=== PATIENT | male | born 1935 | race Caucasian/White ===

== ENCOUNTER 2019-02-21 13:59 | Emergency (ER) | payer MEDICARE, OTHER ==
[~2019-02-21] VITALS: Ht 172.7 cm; Wt 81.7 kg
--- OUTSIDE RECORDS SUMMARY | ~2019-02-21 | XMS | Encounter Summary ---
Demographics + + + | Address | [address] | | | [place] [address] | + + + | Home Phone | | + + + | Preferred Language | Unknown | + + + | Marital Status | Single | + + + | Gnosticism Affiliation | CAT | + + + | Race | White | + + + | Ethnic Group | Not or | + + + Author + + + | Author | [facility] | + + + | Organization | [facility] | + + + | Address | Unknown | + + + | Phone | Unavailable | + + + Support + + +---------+ + | Name | Relationship | Address | Phone | + + +---------+ + | Elizabeth Damico | ECON | Unknown | | + + +---------+ + Care Team Providers + +------+ + | Care Leadite Heater Name | Role | Phone | + +------+ + PCP | Unavailable | + +------+ + Encounter Details +--------+ + + + + | Date | Type | Department | Care Team | Description | +--------+ + + + + | 05/23/ | Results | [facility] | Wayne Higginbotham, | | | 2010 | Only | Department | MD [facility] | | | | | | CLINIC DERMATOLOGY | | | | | | [address] | | | | | | [place] | | | | | | [address] | | | | | | | [...] | | OLOGY(WET | FIRST TISSUE LEVEL | | DERMATOPATH | | | MNT) | [place] [id number] | | OLOGY | | | | CLINICAL | | | | | | DESCRIPTION:Shave, | | | | | | scalp; continued pigment | | | | | | change in pigmented | | | | | | patch; previously bx.on | | | | | | solar lentigo. | | | | | | GROSS | | | | | | DESCRIPTION:Scalp. Th | | | | | | e specimen is received | | | | | | in formalin, labeled | | | | | | scalp with thepatient's | | | | | | name, and consists of a | | | | | | garcia and brown shave | | | | | | biopsy, measuring 1.1x | | | | | | 1.0 cm, which is inked, | | | | [...] | | | | | | keratinocyte | | | | | | atypia. In other | | | | | [...] | | | | | SITU, SCALP. | | | | | | There are also several | | | | | | foci of SQUAMOUS CELL | | | | | | CARCINOMA IN SITU, | | | | | | likely anincidental | | | | | | finding ("collision | | | | | | lesion"). The | | | | | | melanoma in situ extends | | | | | | tothe peripheral | | | | | | margins and for these | | | | | | reasons, additional | | | | | | treatment of it toensure | | | | | | complete removal would | | | | | | be prudent. | | | | | | KPW:mm8 | | | | | | This case also reviewed | | | | | | with Dr. Mata Palmer | | | | | | Jr. Tabitha My | | | | | | electronic signature | | | | | | indicates that I have | | | | | | personally reviewed | | | | | | alldiagnostic slides, | | | | | | the gross and/or | | | | | | microscopic portion of | | | | | | thisreport and | | | | | | formulated the final | | | | | | diagnosis. | | | | | | Rendering | | | | | | Diagnostician: Jason | | | | | | Tabitha | | | | | | IsidoroPathologistKatherinei | | | | | | natalie Signed | | | | | | 05/30/2011 9:56AM | | | | + + + + + + + + | Specimen | + + | | + + + + + + + | Performing | Address | City/State/Zipcode | Phone Number | | Organization | | | | + + + + + | [facility] | [address], [address] | [place] [address] | | | DERMATOPATHOLOGY | [address] | | | + + + + + documented in this encounter Visit Diagnoses Not on filedocumented in this encounter
--- OUTSIDE RECORDS SUMMARY | ~2019-02-21 | XMS | Encounter Summary ---
Demographics + + + | Address | [address] | | | [place] [address] | + + + | Home Phone [...] Team Providers + +------+ + | Care Glass Embosser Name | Role | Phone | + +------+ + PCP | Unavailable | + +------+ + Encounter Details +--------+ + + + + | Date | Type | Department | Care Team | Description | +--------+ + + + + | 01/26/ | Office | | Note, Outpatient | Progress Note | | 2004 | Visit-Trans | | Clinic | | | | cribed | | | | +--------+ + + [...] + + documented as of this encounter Progress Notes Interface, Cyber Security Manager In - 2005 7:20 PM PDTClinic Date: 01/27/2004 Clinic: Subjective: This is a 68-year-old male with a history of epidural abscess. Blood cultures were positive for Enterococcus fecalis. He underwent L3-4 laminectomy in November 2003 here at [facility]. He also underwent 6 weeks of intravenous antibiotic therapy. He was treated with TLSO upon discharge, and he is still wearing his brace. The patient is ambulatory with a walker which he has been using for about a week. Prior to this, he was in a wheelchair secondary to pain. He also reports some generalized weakness but nothing focal. He is currently on oxycodone, a total of 100 mg per day, which offers him good relief. His pain is often present with activity, and it is relieved by lying or sitting down. He rates his pain as about 5/10 in severity when present. He is doing physical therapy at home. Physical Examination: He stands with some difficulty secondary to pain. He is wearing his TLSO. He is awake, alert, and follows commands. He has 5/5 strength in both lower extremities with the exception of his right dorsiflexors which grade a 4+/5. Examination of his lower extremities is complicated by pain, and upon removal of his brace, his wound is well healed. Assessment and Plan: We had a discussion with the patient regarding his treatment up to this point. He seems to be recovering well from his surgery. His pain syndrome is slowly getting better, and he is becoming more ambulatory as his pain resolves. We advised the patient to begin to taper his narcotics as his pain resolves, and we advised the patient that it is okay to begin swimming pool physical therapy and he may remove his thoracolumbosacral orthosis during this therapy. At the conclusion of our visit, we sent the patient for his x-rays which we now have the opportunity to review. His x-rays show autofusion at the L3-4 level and at the L5-S1 level. He has a grade I to II spondylolisthesis of L4 on L5. The patient was advised to return back in the clinic in 3 months or sooner if clinically indicated. Please note that this patient was seen with Dr. Vences. Sergei Martinez M.D. Maria C Vences M.D. SHELBY / WALDO [id number] / [id number] / [id number] / Tdocumented in this encounter Plan of Treatment Not on filedocumented as of this encounter Visit Diagnoses Not on filedocumented in this encounter"
--- OUTSIDE RECORDS SUMMARY | ~2019-02-21 | XMS | Encounter Summary ---
Demographics + + + | Address | [address] | | | [place] [address] | + + + | Home Phone | | + + + | Preferred Language | Unknown | + + + | Marital Status | Single | + + + | Mosque Affiliation | CAT | + + + [...] Team Providers + +------+ + | Care Leather Etcher Name | Role | Phone | + [...] as of this encounter Progress Notes Interface, Oil Well Logger In - 2005 7:20 PM PDTClinic Date: 01/27/2004 Clinic: Subjective: This is a 68-year-old male with a history of epidural abscess. Blood cultures were positive for Enterococcus fecalis. He underwent L3-4 laminectomy in November 2003 here at [facility]. He also underwent 6 weeks of intravenous [...] Maria C Vences M.D. [place] / WALDO [id number] / [id number] / [id number] / Tdocumented in this encounter Plan of Treatment Not on filedocumented as of this encounter Visit Diagnoses Not on filedocumented in this encounter"
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
--- OUTSIDE RECORDS SUMMARY | ~2019-02-21 | XMS | Encounter Summary ---
Demographics + + + | Address | [address] | | | [place] [address] | + + + | Home Phone | | + + + | Preferred Language | Unknown | + + + | Marital Status | Single | + + + | Anabaptism Affiliation | CAT | + + + | Race | White | + + + | Ethnic Group | Not or | + + + Author + + + | Author | [facility] | + + + | Organization | [facility] | + + + | Address | Unknown | + + + | Phone | Unavailable | + + + Support + + +---------+ + | Name | Relationship | Address | Phone | + + +---------+ + | Elizabeth Damico | ECON | Unknown | | + + +---------+ + Care Team Providers + +------+ + | Care Intermediate Designer Name | Role | Phone | + +------+ + PCP | Unavailable | + +------+ + Encounter Details +--------+ + + + + | Date | Type | Department | Care Team | Description | +--------+ + + + + | 12/08/ | Hospital | Dermatopathology | | | | 2012 | Encounter | [address] | | | | | | Mail Code: CH16D | | | | | | [facility] | | | | | | and [facility], 5th | | | | | | [place], [place] | | | | | | [address] | | | | | | [phone] | | | +--------+ + + + [...] + +--------+ + + + | DERMATOPATHOLOGY(WET Routin | 12/08/2012 | | Results for this | | [facility]) | e | | | procedure are in the | | | | | | results section. | + +--------+ + + + documented in this encounter Results DERMATOPATHOLOGY(WET [facility]) (12/08/2012) + + + + + + | Component | Value | Ref Range | Performed | Pathologist | | | | | At | Signature | + + + + + + | DERMATOPATH | SOURCE OF SPECIMEN:A | | [facility] | | | OLOGY(WET | Scalp. CLINICAL | | DERMATOPATH | | | MNT) | DESCRIPTION:Irreg | | OLOGY | | | | pigmented patch, pt has | | | | | | Hx of 2 other MMIS | | | | | | elsewhere on scalp; | | | | | | solarlentigo, pigmented | | | | | | AK, R/O | | | | | | melanoma. GROSS | | | | | | DESCRIPTION:Received in | | | | | | formalin is a specimen | | | | | | labeled Iraida Damico | | | | | | [place]:A: Specimen is | | | | | | labeled "scalp" and | | | | | | consists of an irregular | | | | | | shave oftan-white skin, | | | | | | [id number]. The surgical | | | | | | margin is inked black; | | | | | | the tissueis serially | | | | | | sectioned, and entirely | | | | | | submitted in cassette | | | | | | A1. MICROSCOPIC | | | | | | DESCRIPTION:There is | | | | | | slight hyperplasia of | | | | | | the rete ridges with | | | | | | hyperpigmentation | | | | | | alongthe basal layer and | | | | | | solar | | | | | | elastosis. | | | | | | DIAGNOSIS:SOLAR | | | | | | LENTIGO. | | | | | | NOTE: There is also a | | | | | | small focus of | | | | | | co-existent PIGMENTED | | | | | | SOLARKERATOSIS. There | | | | | | is no evidence of a | | | | | | melanocytic | | | | | | proliferation in | | | | | | thesesections. | | | | | | KPW:12/18/12 My | | | | | | [...] Tabitha | | | | | | M.AngelPathologistElectroni | | | | | | natalie Signed | | | | | | 12/19/2012 7:23PM | | | | + + + + + + + + | Specimen | + + | | + + + + + + + | Performing | Address | City/State/Zipcode | Phone Number | | Organization | | | | + + + + + | [facility] | [address], [address] | [place] [address] | | | DERMATOPATHOLOGY | [address] | | | + + + + + documented in this encounter Visit Diagnoses Not on filedocumented in this encounter
--- OUTSIDE RECORDS SUMMARY | ~2019-02-21 | XMS | Encounter Summary ---
Demographics + + + | Address | [address] | | | [place] [address] | + + + | Home Phone | | + + + | Preferred Language | Unknown | + + + | Marital Status | Single | + + + | Episcopalian Affiliation | CAT | + + + | Race | White | + + + | Ethnic Group | Not or | + + + Author + + + | Author | [facility] | + + + | Organization | [facility] | + + + | Address | Unknown | + + + | Phone | Unavailable | + + + Support + + +---------+ + | Name | Relationship | Address | Phone | + + +---------+ + | Elizabeth Damico | ECON | Unknown | | + + +---------+ + Care Team Providers + +------+ + | Care Track Laying Machine Operator Name | Role | Phone | + +------+ + PCP | Unavailable | + +------+ + Encounter Details +--------+ + + + + | Date | Type | Department | Care Team | Description | +--------+ + + + + | 11/26/ | DELETED | Preoperative | Consult, | ANESTHESIA/SEDATION | | 2003 | TRANSCRIPTI | Medicine Clinic at | Anesthesia [address] | | | | ON | [facility] 4th Floor [address] | [facility] | | | | | [address] | Road [place], [place] | | | | | Code: [address] | [address] | | | | | for Health and | | | | | | Healing,4th Floor | | | | | | [place], [place] | | | | | | [address] | | | | | | [phone] | | | +--------+ + + + [...] | + +--------+ + + + | ANESTHESIA/SEDATION | | 11/26/2003 | | Results for this | | | | 10:18 AM | | procedure are in the | | | | PST | | results section. | + +--------+ + + + documented in this encounter Visit Diagnoses Not on filedocumented in this encounter"
--- OUTSIDE RECORDS SUMMARY | ~2019-02-21 | XMS | Encounter Summary ---
Demographics + + + | Address | [address] | | | [place] [address] | + + + | Home Phone | | + + + | Preferred Language | Unknown | + + + | Marital Status | Single | + + + | Islam Affiliation | CAT | + + + | Race | White | + + + | Ethnic Group | Not or | + + + Author + + + | Author | [facility] | + + + | Organization | [facility] | + + + | Address | Unknown | + + + | Phone | Unavailable | + + + Support + + +---------+ + | Name | Relationship | Address | Phone | + + +---------+ + | Elizabeth Damico | ECON | Unknown | | + + +---------+ + Care Team Providers + +------+ + | Care Scroll Shear Operator Name | Role | Phone | + +------+ + PCP | Unavailable | + +------+ + Encounter Details +--------+ + + + + | Date | Type | Department | Care Team | Description | +--------+ + + + + | 01/09/ | Hospital | Dermatopathology | | | | 2011 | Encounter | [address] | | | | | | Mail Code: CH16D | | | | | | [facility] | | | | | | and [facility], 5th | | | | | | floor [place], [place] | | | | | | [address] | | | | | | [phone] | | | +--------+ + + + [...] | + +--------+ + + + | DERMATOPATHOLOGY([facility] Routin | 01/10/2012 | | Results for this | | [facility]) | e | | | procedure are in the | | | | | | results section. | + +--------+ + + + documented in this encounter Results DERMATOPATHOLOGY(WET [facility]) (01/10/2012) + + + + + + | Component | Value | Ref Range | Performed | Pathologist | | | | | At | Signature | + + + + + + | DERMATOPATH | SOURCE OF SPECIMEN:A | | [facility] | | | OLOGY(WET | chest, excision | | DERMATOPATH | | | MNT) | CLINICAL DESCRIPTION:Exc | | OLOGY | | | | 0.29mm melanoma; suture | | | | | | medial tip. Check | | | | | | margins please. | | | | | | GROSS | | | | | | DESCRIPTION:Received in | | | | | | formalin is a specimen | | | | | | labeled Iraida Damico | | | | | | [place]:A: Specimen is | | | | | | labeled "Chest" and | | | | | | consists of an ellipse | | | | | | of garcia-white | | | | | | [id number]. The | | | | | | specimen is oriented by | | | | | | a suture at one apex, | | | | | | which isdesignated as | | | | | | medial by the | | | | | | surgeon. With the | | | | | | suture in the | | | | | | 12:00position, the | | | | | | specimen is inked blue | | | | | | from 12-3-6:00 and green | | | | | | from6-9-12:00. The | | | | | | tissue is serially | | | | | | sectioned from 12:00 to | | | | | | 6:00 andsubmitted | | | | | | respectively in | | | | | | cassettes A1-A4. | | | | | | MICROSCOPIC | | | | | | DESCRIPTION:There is | | | | | | fibrosis extending | | | | | | throughout the dermis. | | | | | | In one of the | | | | | | blocks,there is a slight | | | | | | increase in single | | | | | | melanocytes distributed | | | | | | irregularlyalong and | | | | | | focally above the basal | | | | | | layer. In another, away | | | | | | from the scar,there is a | | | | | | well circumscribed | | | | | | compound melanocytic | | | | | | proliferation composedof | | | | | | nests and cords in the | | | | | | dermis and a few single | | | | | | melanocytes and | | | | | | nestsalong the basal | | | | | | layer. Most of the | | | | | | melanocytic nuclei are | | | | | | moderately largeand | | | | | | round to oval and most | | | | | | of the cells contain | | | | | | amphophilic cytoplasm | | | | | | withmelanin. | | | | | | DIAGNOSIS:MELANOMA IN | | | | | | SITU, CHEST, AND | | | | | | SCAR. NOTE: Only | | | | | | a small remnant of the | | | | | | original melanoma is | | | | | | present in | | | | | | thisre-excisional | | | | | | specimen, most of it | | | | | | confined to the | | | | | | epidermis (in situ). | | | | | | Theresidual melanoma | | | | | | appears to be completely | | | | | | excised. There are also | | | | | | findingsof an | | | | | | incidental COMPOUND | | | | | | NEVUS present in block | | | | | | 2, which is | | | | | | completelyexcised. | | | | | | | | | | | | KPW:emr4/07/18 | | | | | | My [...] | | | | | natalie Signed 01/16/2012 | | | | | | 12:21PM | | | | + + + + + + + + | Specimen | + + | | + + + + + + + | Performing | Address | City/State/Zipcode | Phone Number | | Organization | | | | + + + + + | [facility] | [address], [address] | [place] [address] | | | DERMATOPATHOLOGY | [address] | | | + + + + + documented in this encounter Visit Diagnoses Not on filedocumented in this encounter
--- OUTSIDE RECORDS SUMMARY | ~2019-02-21 | XMS | Encounter Summary ---
Demographics + + + | Address | [address] | | | [place] [address] | + + + | Home Phone | | + + + | Preferred Language | Unknown | + + + | Marital Status | Single | + + + | Adventism Affiliation | CAT | + + + | Race | White | + + + | Ethnic Group | Not or | + + + Author + + + | Author | [facility] | + + + | Organization | [facility] | + + + | Address | Unknown | + + + | Phone | Unavailable | + + + Support + + +---------+ + | Name | Relationship | Address | Phone | + + +---------+ + | Elizabeth Damico | ECON | Unknown | | + + +---------+ + Care Team Providers + +------+ + | Care Skimmer Name | Role | Phone | + [...] [id number] | | | | | | [facility] | | | | | | and [facility], 5th | | | | | | [place], [place] | | | | | | [address] | | | | | | [phone] | | | +--------+ + + + [...] | | Results for this | | [facility]) | e | | | procedure are in the | | | | | | results section. | + +--------+ + + + documented in this encounter Results DERMATOPATHOLOGY(WET [facility]) (12/08/2012) + + + + + + [...] Damico | | | | | | [place]:A: Specimen is | | | | | | labeled "scalp" and | | | | | | consists of an irregular | | | | | | shave oftan-white skin, | | | | | | [id number]. The surgical | | | | | [...] + + | [facility] | [address], [address] | [place] [address] | | | DERMATOPATHOLOGY | [address] | | | + + + + + documented in this encounter Visit Diagnoses Not on filedocumented in this encounter
--- OUTSIDE RECORDS SUMMARY | ~2019-02-21 | XMS | Encounter Summary ---
Demographics + + + | Address | [address] | | | [place] [address] | + + + | Home Phone | | + + + | Preferred Language | Unknown | + + + | Marital Status | Single | + + + | Zoroastrianism Affiliation | CAT | + + + | Race | White | + + + | Ethnic Group | Not or | + + + Author + + + | Author | [facility] | + + + | Organization | [facility] | + + + | Address | Unknown | + + + | Phone | Unavailable | + + + Support + + +---------+ + | Name | Relationship | Address | Phone | + + +---------+ + | Elizabeth Damico | ECON | Unknown | | + + +---------+ + Care Team Providers + +------+ + | Care Ropewalk Rope Maker Name | Role | Phone | + +------+ + PCP | Unavailable | + +------+ + Encounter Details +--------+ + + + + | Date | Type | Department | Care Team | Description | +--------+ + + + + | / | Results | Registration 3181 | Shawn, Dasia | | | 2007 | Only | Silvia Fonseca | [phone] | | | | | [facility] Mailcode: | | | | | | [id number] [place], [place] | | | | | | [address] | | | | | | [phone] | | | +--------+ + + + [...] OLOGY(WET | FIRST TISSUE LEVEL | | | | | MNT) | [place] [id number] CLINICAL | | | | | | [...] | | | | | | Diagnostician: Clifto | | | | | | n Spencer Lu Jr., | | | | | | Pato | | | | | | natalie [...] + + + | [facility] | [address], [address] | [place] [address] | | | DERMATOPATHOLOGY | [address] | | | + + + + + documented in this encounter Visit Diagnoses Not on filedocumented in this encounter"
--- OUTSIDE RECORDS SUMMARY | ~2019-02-21 | XMS | Clinical Summary ---
Demographics + + + | Address | [address] | | | [place] [address] | + + + | Home Phone [...] Author + + + | Author | [facility] | + + + | Organization | [facility] | + + + | Address | Unknown | + + + | Phone | Unavailable | + + + Support + + +---------+ + | Name | Relationship | Address | Phone | + + +---------+ + | Elizabeth Damico | ECON | Unknown | | + + +---------+ + Care Team Providers + +------+ + | Care Floating Derrick Operator Name | Role | Phone | + +------+ + PP | Unavailable | + +------+ + Source Comments [facility] is fully live on both [facility] Ambulatory and [facility] InPatient.[facility] Allergies No Known Allergies Medications Not on file Active Problems Not on file Social History + +-------+ +--------+------+ | Tobacco [...] recent travel history available. | + + Plan of Treatment + + + + + | Health Maintenance | Due Date | Last Done | Comments | + + + + + | Pneumococcal (Adult) | | | | | (1 of 2 - PCV13) | 0 | | | + + + + + | Influenza (Flu) | | | | | vaccination (Season | 9 | | | | Ended) | | | | + + + + + Results Not on filefrom Last 3 Months Insurance + +--------+ +--------+ + +--------+ | Payer | Benefi | Subscriber | Effect | Phone | Address | Type | | | t Plan | ID | rey | | | | | | / | | Dates | | | | | | Group | | | | | | + +--------+ +--------+ + +--------+ | MEDICARE | MEDICA | xxxxxxxxxx | 04/06/20 | [phone] | [address] | Medica | | | RE A & | | 00-Pre | 1 | [phone] | re | | | B | | sent | | [place] | | | | | | | | [phone] | | + +--------+ +--------+ + +--------+ | COMMERCIAL GROUP | COMMER | xxxxxxx | Effect | | | Indemn | | | CIAL | | rey | | | ity | | | GROUP | | for | | | | | | | | all | | | | | | | | dates | | | | + +--------+ +--------+ + +--------+ + +--------+ +--------+ + + | Guarantor Name | Accoun | Relation to | Date | Phone | Billing Address | | | t Type | Patient | of | | | | | | | | | | + +--------+ +--------+ + + | Iraida Damico | Person | Self | [birth year] | [address] | | | al/Fam | | 1935 | [phone] | [place] [address] | | | isa | | | 8 (Home) | | + +--------+ +--------+ + +"
--- OUTSIDE RECORDS SUMMARY | ~2019-02-21 | XMS | Encounter Summary ---
Demographics + + + | Address | [address] | | | [place] [address] | + + + | Home Phone | | + + + | Preferred Language | Unknown | + + + | Marital Status | Single | + + + | Pentecostalism Affiliation | CAT | + + + [...] Team Providers + +------+ + | Care Inspector Technician Name | Role | Phone | + +------+ + PCP | Unavailable | + +------+ + Encounter Details +--------+ + + + + | Date | Type | Department | Care Team | Description | +--------+ + + + + | 11/25/ | Results | | Other, Faculty | | | 2003 | Only | | [phone] | | +--------+ + + + + [...] | + +--------+ + + + | GENTAMICIN, PEAK | Routin | 11/29/2003 | | Results for this | | | e | 10:50 AM | | procedure are in the | | | | PST | | results section. | + +--------+ + + + | BASIC METABOLIC SET | Routin | 11/29/2003 | | Results for this | | (NA, K, CL, TCO2, | e | 10:50 AM | | procedure are in the | | BUN, CR, GLU, CA) | | PST | | results section. | + +--------+ + + + | CULTURE, TISSUE | Routin | 11/25/2003 | | Results for this | | | e | 3:31 PM | | procedure are in the | | | | PST | | results section. | + +--------+ + + + | CULTURE, WOUND BACTI | Routin | 11/25/2003 | | Results for this | | & GS | e | 3:31 PM | | procedure are in the | | | | PST | | results section. | + +--------+ + + + documented in this encounter Results GENTAMICIN, PEAK (11/29/2003 10:50 AM PST) + +---------+ + + + | Component | Value | Ref Range | Performed | Pathologist | | | | | At | Signature | + +---------+ + + + | GENTAMICIN, | 3.6 (L) | 5.0 - 8.0 ug/mL | [facility] | | | PEAK | | | DEPARTMENT | | | | | | OF | | | | | | PATHOLOGY | | + +---------+ + + + + + | Specimen | + + | | + + + + + | Narrative | Performed At | + + + | Ordered by HEMANT DELVALLE | [facility] | | | DEPARTMENT OF | | | PATHOLOGY | + + + + + + + + | Performing | Address | City/State/Zipcode | Phone Number | | Organization | | | | + + + + + | [facility] DEPARTMENT OF | [address] | [place] [address] | | | PATHOLOGY | [address] | | | + + + + + | [facility] DEPARTMENT OF | [address] | [place] [address] | | | PATHOLOGY | [address] | | | + + + + + BASIC METABOLIC SET (11/29/2003 10:50 AM PST) + +---------+ + + + | Component | Value | Ref Range | Performed | Pathologist | | | | | At | Signature | + +---------+ + + + | GLUCOSE, | 214 (H) | 65 - 110 mg/dL | [facility] | | | PLASMA | | | DEPARTMENT | | | (LAB) | | | OF | | | | | | PATHOLOGY | | + +---------+ + + + | BUN, PLASMA | 11 | 6 - 20 mg/dL | [facility] | | | (LAB) | | | DEPARTMENT | | | | | | OF | | | | | | PATHOLOGY | | + +---------+ + + + | CREATININE | 0.8 | 0.7 - 1.3 mg/dL | [facility] | | | PLASMA | | | DEPARTMENT | | | (LAB) | | | OF | | | | | | PATHOLOGY | | + +---------+ + + + | SODIUM, | 130 (L) | 136 - 145 | [facility] | | | PLASMA | | mmol/L | DEPARTMENT | | | (LAB) | | | OF | | | | | | PATHOLOGY | | + +---------+ + + + | POTASSIUM, | 4.3 | 3.5 - 5.1 | [facility] | | | PLASMA | | mmol/L | DEPARTMENT | | | (LAB) | | | OF | | | | | | PATHOLOGY | | + +---------+ + + + | CHLORIDE, | 99 | 98 - 107 mmol/L | [facility] | | | PLASMA | | | DEPARTMENT | | | (LAB) | | | OF | | | | | | PATHOLOGY | | + +---------+ + + + | TOTAL CO2, | 27 | 23 - 29 mmol/L | [facility] | | | PLASMA | | | DEPARTMENT | | | (LAB) | | | OF | | | | | | PATHOLOGY | | + +---------+ + + + | CALCIUM, | 8.6 | 8.5 - 10.5 | [facility] | | | PLASMA | | mg/dL | DEPARTMENT | | | (LAB) | | | OF | | | | | | PATHOLOGY | | + +---------+ + + + + + | Specimen | + + | | + + + + + | Narrative | Performed At | + + + | Ordered by HEMANT DELVALLE | [facility] | | | DEPARTMENT OF | | | PATHOLOGY | + + + + + + + + | Performing | Address | City/State/Zipcode | Phone Number | | Organization | | | | + + + + + | [facility] | [address] | [place] [address] | | | PATHOLOGY | [address] | | | + + + + + | [facility] | [address] | [place] [address] | | | PATHOLOGY | [address] | | | + + + + + CULT, TISSUE (11/25/2003 3:31 PM PST) + + + + + + | Component | Value | Ref Range | Performed | Pathologist | | | | | At | Signature | + + + + + + | SOURCE BODY | Epideral Space | | | | | SITE | | | | | + + + + + + | CULTURE | Tissue Culture | | | | | RESULT | | | | | | | Source...............: | | | | | | Epideral Space RLB Gram | | | | | | Stain...........: No | | | | | | PMN's | | | | | | | | | | | | No | | | | | | organisms seen. | | | | | | Culture: 1+ | | | | | | Propionibacterium | | | | | | sp. | | | | | | | | | | | | | | | | | | Final ID | | | | | | Gram positive | | | | | | bacilli | | | | | | | | | | | | | | | | | | Prelim ID | | | | | | Preliminary | | | | | | Report: Culture | | | | | | Received, No growth | | | | | | to date. | | | | | | Final Report | | | | + + + + + + + + | Specimen | + + | | + + + + + | Narrative | Performed At | + + + | Ordered simón ODOM | | + + + + + + + + | Performing | Address | City/State/Zipcode | Phone Number | | Organization | | | | + + + + + | [facility] | [address] | [place] [address] | | | LAB-MICRO | | | | + + + + + CULT, WOUND BACTI & GS (11/25/2003 3:31 PM PST) + + + + + + | Component | Value | Ref Range | Performed | Pathologist | | | | | At | Signature | + + + + + + | SOURCE BODY | Epidural Space | | | | | SITE | | | | | + + + + + + | CULTURE | Wound Culture | | | | | RESULT | | | | | | | Source...............: | | | | | | Epidural Space RLB Gram | | | | | | Stain...........: Rare | | | | | | PMN's | | | | | | | | | | | | No | | | | | | Epithelial | | | | | | cells | | | | | | | | | | | | No | | | | | | organisms seen. | | | | | | Culture: Prelimin | | | | | | kolby Report: Culture | | | | | | Received, No growth | | | | | | to | | | | | | date. Final | | | | | | Report: No growth after | | | | | | 72 hours Final | | | | | | Report | | | | + + + + + + + + | Specimen | + + | | + + + + + | Narrative | Performed At | + + + | Ordered simón ODOM | | + + + + + + + + | Performing | Address | City/State/Zipcode | Phone Number | | Organization | | | | + + + + + | [facility] | [address] | [place] [address] | | | LAB-MICRO | | | | + + + + + documented in this encounter Visit Diagnoses Not on filedocumented in this encounter"
--- OUTSIDE RECORDS SUMMARY | ~2019-02-21 | XMS | Encounter Summary ---
Demographics + + + | Address | [address] | | | [place] [address] | + + + | Home Phone | | + + + | Preferred Language | Unknown | + + + | Marital Status | Single | + + + | Jain Affiliation | CAT | + + + | Race | White | + + + | Ethnic Group | Not or | + + + Author + + + | Author | [facility] | + + + | Organization | [facility] | + + + | Address | Unknown | + + + | Phone | Unavailable | + + + Support + + +---------+ + | Name | Relationship | Address | Phone | + + +---------+ + | Elizabeth Damico | ECON | Unknown | | + + +---------+ + Care Team Providers + +------+ + | Care Director Selection And Administration Name | Role | Phone | + +------+ + PCP | Unavailable | + +------+ + Encounter Details +--------+ + + + + | Date | Type | Department | Care Team | Description | +--------+ + + + + | 11/25/ | Results | Neurosurgery 3181 | Maria C Vences MD | | | 2003 | Only | Sil[facility]a | [address] | | | | | [facility] | [place], [place] | | | | | Mailcode:[id number] | [address] | | | | | [employer] | [phone] | | | | | [place], [place] | | | | | | [address] | | | | | | [phone] | | | +--------+ + + + [...] | | IMPRESSION: | | | | | | 1. 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 An MRI | | | | | | is suggested for | | | | | | furtherevaluation. | | | | | | 2. Grade one | | | | | | spondylolisthesis and | | | | | | development of focal | | | | | | kyphosisas well as | | | | | | indistinctness of | | | | | | endplates at L4-5 may | | | | | | representseptic | | | | | | spondylitis. | | | | | | 3. Severe | | | | | [...] | | + +---------+ + + | [facility] DEPARTMENT OF | | | | [...] | | | | | | laminectomyat | | | | | | L5. There appears to | | | | | | be progressive narrowing | | | | | | of the L3-4 | | | | | | discspace. The end | | | | | | plates are not fully | | | | | | evaluated. The | | | | | | vertebral bodyheights | | | | | | appear to be | | | | | | maintained. There is | | | | | | mild levoscoliosis. | | | | | | IMPRESSION: | | | | | | 1. Severely limited | | | | | | radiograph of the lumbar | | | | | | spine. There | | | | | | doesappear to be | | | | | | progressive narrowing of | | | | | | the L3-L4 disc | | | | | | space. The endplates | | | | | | are not fully | | | | | | evaluated. Given the | | | | | | patient's history, | | | | | | discitisis of | | | | | | concern. If | | | | | | clinically indicated | | | | | | suggest an MRI to | | | | | | betterevaluate. END | | | | | | IMPRESSION | | | | + + [...] + + + + + | [facility] DEPARTMENT OF | [address] | [place] [address] | | | PATHOLOGY | [address] | | | + + + + + | [facility] | [address] | [place] [address] | | | PATHOLOGY | [address] [...] | + + + + + | [facility] | [address] | [place] [address] | | | PATHOLOGY | [address] | | | + + + + + | [facility] | [facility] [address] | [place] [address] | | | PATHOLOGY | [address] [...] | + + + + + | [facility] | [address] | [place] [address] | | | PATHOLOGY | [address] | | | + + + + + | [facility] | [address] | [place] [address] | | | PATHOLOGY | [address] [...] | + + + + + | [facility] | [address] | [place] [address] | | | PATHOLOGY | [address] | | | + + + + + | [facility] | [address] | [place] [address] | | | PATHOLOGY | [address] [...] | + + + + + | [facility] | [facility] | [place] [address] | | | PATHOLOGY | [address] | | | + + + + + | [facility] | [facility] | [place] [address] | | | PATHOLOGY | [address] [...] + + + + + | [facility] DEPARTMENT OF | [address] | [place] [address] | | | PATHOLOGY | [address] | | | + + + + + | [facility] DEPARTMENT OF | [address] | [place] [address] | | | PATHOLOGY | [address] [...] [facility] | | | | PT INR | | DEPARTMENT | | | | Therapeutic ranges for | | OF | | | | full | | PATHOLOGY | | | | anticoagulation: | | | | | | INR for | | | | | | Venous | | | | | | Thromboembolism | | | | | | | | | | | | (2.0-3.0)INR | | | | | | INR for most | | | | | | patients with mech. | | | | | | valves (2.5-3.5)I | | | | | | NR | | | | + + + + + + + + | Specimen | + + | | + + + + + + + | Performing | Address | City/State/Zipcode | Phone Number | | Organization | | | | + + + + + | [facility] DEPARTMENT OF | [facility] | [place] [address] | | | PATHOLOGY | [address] | | | + + + + + | [facility] DEPARTMENT OF | [facility] | [place] [address] | | | PATHOLOGY | [address] [...] | [facility] | | | | APTT | seconds | DEPARTMENT | | | | Therapeutic | | OF | | | | Range | | PATHOLOGY | | | | | | | | | | (75-120)sec | | | | | | Hepa | | | | | | rin levels of 0.35-0.7 | | | | | | U/mL | | | | + + + + + + + + | Specimen | + + | | + + + + + + + | Performing | Address | City/State/Zipcode | Phone Number | | Organization | | | | + + + + + | [facility] | [address] | [place] [address] | | | PATHOLOGY | [address] | | | + + + + + | [facility] | [address] | [place] [address] | | | PATHOLOGY | [address] [...] | | | | | and mediastinal | | | | | | contours are | | | | | | normal. Thelungs are | | | | | | clear. IMPRESSION: | | | | | | Normal. | | | | | | | [...] | | | | | Bacteria or | | | | | | Yeast | | | | | | [...] + + + | [facility] | [address] | [place] [address] | | | LAB-MICRO | | | [...] | | | | | Bacteria or | | | | | | Yeast | | | | | | [...] + + + | [facility] | [address] | [place] [address] | | | LAB-MICRO | | | [...] + + + + + | [facility] DEPARTMENT OF | [address] | [place] [address] | | | PATHOLOGY | [address] | | | + + + + + | [facility] DEPARTMENT OF | [address] | [place] [address] | | | PATHOLOGY | [address] [...] | + + + + + | [facility] | [address] | [place] [address] | | | PATHOLOGY | [address] | | | + + + + + | [facility] | [facility] [address] | [place], [place] | | | PATHOLOGY | [address] [...] | [facility] DEPARTMENT OF | [address] | [place] [address] | | | PATHOLOGY | [address] | | | + + + + + | [facility] | [address] | [place] [address] | | | PATHOLOGY | [address] | | | + + + + + documented in this encounter Visit Diagnoses Not on filedocumented in this encounter"
--- OUTSIDE RECORDS SUMMARY | ~2019-02-21 | XMS | Encounter Summary ---
Demographics + + + | Address | [address] | | | [place] [address] | + + + | Home Phone | | + + + | Preferred Language | Unknown | + + + | Marital Status | Single | + + + | Yazdanism Affiliation | CAT | + + + | Race | White | + + + | Ethnic Group | Not or | + + + Author + + + | Author | [facility] | + + + | Organization | [facility] | + + + | Address | Unknown | + + + | Phone | Unavailable | + + + Support + + +---------+ + | Name | Relationship | Address | Phone | + + +---------+ + | Elizabeth Damico | ECON | Unknown | | + + +---------+ + Care Team Providers + +------+ + | Care Charity Fundraiser Name | Role | Phone | + [...] [id number] | | | | | | [facility] | | | | | | and [facility], [address] | | | | | | [place], [place] | | | | | | [address] | | | | | | [phone] | | | +--------+ + + + [...] | | | | | | DESCRIPTION:A-B. Dark | | | | | | ening of pigmented patch | | | | | | x 2; solar lentigo vs | | | | | | flat SK; r/omelanoma on | | | | | | each. GROSS | | | | | | DESCRIPTION:A. Rt. | | | | | | forehead. The | | | | | [...] | | | | | | cassette. [id number] | | | | | | AB. [...] | | | | | | cassette. [id number] | | | | | | BGross performed at: | | | | | | [facility], | | | | | | [address] [facility], | | | | | | [place] | | | | | | [address]. | | | | | | MICROSCOPIC | | | | | | DESCRIPTION: | | | | | | A: In the A specimen, | | | | | | there is a subtle, | | | | | | somewhat | | | | | | [...] | | | | | cytoplasm with | | | | | | melanin. There is | | | | | | abundant solar elastosis | | | | | | inthe upper dermis | | | | | | where there is a sparse, | | | | [...] | | | | in the upper | | | | | | dermis. Most of | | | | | | themelanocytic nuclei | | | | | | are moderately large, | | | | | | some are hyperchromatic, | | | | | | and mostcontain pale | | | | | | staining | | | | | | cytoplasm. 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 | | | | | | NOTE: The melanoma in | | | | | | situ extends to the | | | | | | peripheral margins | | | | | | andadditional treatment | | | | | | to ensure complete | | | | | | removal is | | | | | | recommended. | | | | | | B: MELANOMA, LEFT | | | | | | CHEST, MEASURING | | | | | [...] | | | | | removal is | | | | | | recommended. | | | | | | KPW:mm2/24/12 | | | | | | This case also reviewed | | | | | | with Dr. Mata Palmer | | | | | | Jr. Tia Lu | | | | | | electronic [...] Tabitha | | | | | | Pato [...] [facility] | Mailcode [facility]5[address] | [place] [address] | | | LIGIA | Damion Bui | | | + + + + + documented in this encounter Visit Diagnoses Not on filedocumented in this encounter"
--- OUTSIDE RECORDS SUMMARY | ~2019-02-21 | XMS | Encounter Summary ---
Demographics + + + | Address | [address] | | | [place] [address] | + + + | Home Phone | | + + + | Preferred Language | Unknown | + + + | Marital Status | Single | + + + | Protestant Affiliation | CAT | + + + | Race | White | + + + | Ethnic Group | Not or | + + + Author + + + | Author | [facility] | + + + | Organization | [facility] | + + + | Address | Unknown | + + + | Phone | Unavailable | + + + Support + + +---------+ + | Name | Relationship | Address | Phone | + + +---------+ + | Elizabeth Damico | ECON | Unknown | | + + +---------+ + Care Team Providers + +------+ + | Care Digital Intern Name | Role | Phone | + +------+ + PCP | Unavailable | + +------+ + Encounter Details +--------+ + + + + | Date | Type | Department | Care Team | Description | +--------+ + + + + | / | Results | Registration 3181 | Shawn, Dasia | | | 2007 | Only | Silvia Fonseca | [phone] | | | | | [facility] Mailcode: | | | | | | [address] [place], [place] | | | | | | [address] | | | | | | [phone] | | | +--------+ + + + [...] | | | | MNT) | [place] [id number] CLINICAL | | | | | | [...] [facility] | [address] | [place] [address] | | | DERMATOPATHOLOGY | [address] | | | + + + + + documented in this encounter Visit Diagnoses Not on filedocumented in this encounter"
--- OUTSIDE RECORDS SUMMARY | ~2019-02-21 | XMS | Encounter Summary ---
Demographics + + + | Address | [address] | | | [place] [address] | + + + | Home Phone [...] Team Providers + +------+ + | Care Convention Worker Name | Role | Phone | [...] | Transcriptions | + + | Interface, Director Translation In - 09/26/2005 6:19 AM PST Date: | | 11/25/2003Attending Surgeon: Maria C Vences M.D.Dixonac Operator(s): | | Mc Arnold M.D.Preoperative Diagnosis:L3-L4 epidural [...] midline skin incision was done from the [id number] process to L5 spinous process and then [...] M.D.Maria C Vences, | | PIPE / [id number] / [id number] / [id number] / [id number]: 11/25/2003T: 11/26/2003 | | | |Indications: | [...] | | | |AD / HS | |[id number] / [id number] / [id number] / [id number] | | | | | + + documented in this encounter Visit Diagnoses Not on filedocumented in this encounter"
--- OUTSIDE RECORDS SUMMARY | ~2019-02-21 | XMS | Clinical Summary ---
Demographics + + + | Address | [address] | | | [place] [address] | + + + | Home Phone | | + + + | Preferred Language | Unknown | + + + | Marital Status | | + + + | Church Affiliation | 1041 | + + + | Race | Unknown | + + + | Ethnic Group | Unknown | + + + Author + + + | Author | [facility] | | | and Jeovannyana | + + + | Organization | [facility] | | | and Jeovannyana | + + + | Address | Unknown | + + + | Phone | Unavailable | + + + Support + + + + + | Name | Relationship | Address | Phone | + + + + + | Jadyn Damico | ECON | [address] | | | | | [place] | | | | | [address] | | + + + + + | Scot Damico | ECON | [address] | | | | | [place] [address] | | + + + + + Care Team Providers + +------+ + | Care Web Programmer Name | Role | Phone | + +------+ + | Ralph Chatman MD | PP | | + +------+ + Allergies + + + + + + | Active Allergy | Reactions | Severity | Noted | Comments | | | | | Date | | + + + + + + | Lisinopril | | | 06/01/20 | Cough | | | | | 14 | | + + + + + + Medications + + + +---------+------+------+-------+ | Medication | Sig | Dispensed | Refills | Star | End | Statu | | | | | | t | Date | s | | | | | | Date | | | + + + +---------+------+------+-------+ | amLODIPine | Take 5 mg by mouth | | 0 | | | Activ | | (NORVASC) 5 mg | Daily. | | | | | e | | tablet | | | | | | | + + + +---------+------+------+-------+ | aspirin 325 mg | Take 325 mg by mouth | | 0 | | | Activ | | tablet | Daily. | | | | | e | + + + +---------+------+------+-------+ | omeprazole | Take 20 mg by mouth | | 0 | | | Activ | | (PRILOSEC) 20 mg | Daily as needed. | | | | | e | | capsule | | | | | | | + + + +---------+------+------+-------+ | loperamide ([facility] | Take 2 mg by mouth | | 0 | | | Activ | | ANTI-DIARRHEAL) 2 MG | Daily. | | | | | e | | tablet | | | | | | | + + + +---------+------+------+-------+ | ascorbic acid | Take 500 mg by mouth | | 0 | | | Activ | | (VITAMIN C) 500 mg | Daily. | | | | | e | | tablet | | | | | | | + + + +---------+------+------+-------+ | Cholecalciferol | Take 2,000 Units by | | 0 | | | Activ | | (VITAMIN D3) 2000 | mouth Daily. | | | | | e | | UNITS CAPS | | | | | | | + + + +---------+------+------+-------+ | Respiratory | Res Med S9 auto CPAP | 1 each | 99 | 04/0 | | Activ | | Therapy Supplies | 9 cm H2O. Heater | | | 2/20 | | e | | MISCIndications: | and Humidifier. All | | | 15 | | | | Essential | necessary supplies. | | | | | | | hypertension, PANCHITO | AHI 7.6, 60.5 in | | | | | | | (obstructive sleep | supine. Diagnosis | | | | | | | apnea) | Code(s)327.23. | | | | | | | | Length of Need 99 | | | | | | | | months. Please send | | | | | | | | order to [facility] | | | | | | | | Medical. | | | | | | + + + +---------+------+------+-------+ | | Take 1 tablet by | | 0 | | | Activ | | Aspirin-Acetaminophe | mouth as needed. | | | | | e | | n-Caffeine (EXCEDRIN | | | | | | | | MIGRAINE PO) | | | | | | | + + + +---------+------+------+-------+ | pseudoePHEDrine | Take 30 mg by mouth | | 0 | | | Activ | | (SUDAFED) 30 mg | every 4 hours as | | | | | e | | tablet | needed for | | | | | | | | Congestion. | | | | | | + + + +---------+------+------+-------+ | albuterol 90 | Inhale 2 puffs into | | 0 | | | Activ | | mcg/puff inhaler | the lungs every 6 | | | | | e | | | hours as needed for | | | | | | | | Wheezing. | | | | | | + + + +---------+------+------+-------+ | | Take 1 tablet by | 20 | 0 | 04/1 | | Activ | | HYDROcodone-acetamin | mouth every 6 hours | tablet | | 5/20 | | e | | ophen (NORCO) 5-325 | as needed for Pain. | | | 16 | | | | mg per tablet | | | | | | | + + + +---------+------+------+-------+ | doxycycline | Take 1 capsule by | 14 | 0 | 04 | | Activ | | (VIBRAMYCIN) 100 mg | mouth 2 times daily. | capsule | | 5/20 | | e | | capsule | | | | 16 | | | + + + +---------+------+------+-------+ Active Problems + + + | Problem | Noted Date | + + + | NSVT (nonsustained ventricular tachycardia) | 01/20/2016 | + + + | Syncope | 01/20/2016 | + + + | Incomplete AV heart block | 01/20/2016 | + + + | Iron deficiency | 08/08/2015 | + + + | PANCHITO (obstructive sleep apnea) | 10/17/2014 | + + + + + | Overview: 09/23/2014 Mild, with AHI of 7.6, but severe in | | supine position with AHI of 60.5. | + + + + + | Pulmonary nodules | 08/08/2014 | + + + + + | Overview: Several tiny 3mm nodules seen on CT 07/2014 | | Due for repeat 07/2015. | | Stable on CT 07/2015, no further followup indicated. | + + + + + | S/P AVR (aortic valve replacement) | 07/29/2014 | + + + | COPD (chronic obstructive pulmonary disease) | 07/29/2014 | + + + | Hypertension | | + + + | Degenerative joint disease | | + + + Resolved Problems + + + + | Problem | Noted | Resolved | | | Date | Date | + + + + | Cough | 06/01/20 | | | | 14 | 4 | + + + + | Aortic valve regurgitation | | | | | | 4 | + + + + | Epidural abscess | | | | | | 4 | + + + + Immunizations + + + + | Name | Dates Previously Given | Next Due | + + + + | INFLUENZA 65 Y OR >, | 07/11/2015 | | | TRIVALENT HIGH-DOSE | | | + + + + | INFLUENZA PF 18 Y OR | 06/21/2014 | | | >,TRIVALENT | | | | RECOMBINANT | | | + + + + | INFLUENZA TRIV | 07/07/2013 | | | W/PRES(PED/ADOL/ADUL | | | | T),MULTIDOSE | | | + + + + | PNEUMOCOCCAL | 07/07/2015 | | | CONJUGATE 13-VALENT | | | | (PCV13) | | | + + + + | PNEUMOCOCCAL | 10/07/2009 | | | POLYSACCHARIDE | | | | 23-VALENT (PPSV23) | | | + + + + | ZOSTER, 1 DOSE | 07/07/2012 | | | (ZOSTAVAX) | | | + + + + Family History + + +------+ + | Medical History | Relation | Name | Comments | + + +------+ + | Stroke | Maternal | | | | | Grandfath | | | | | er | | | + + +------+ + | Cancer | Mother | | pancreatic | + + +------+ + | Hypertension | Mother | | | + + +------+ + | Other (see comment) | Sister | | bronchiectasis, followed by a lung doctor | | | | | in [place] | + + +------+ + + +------+ + + | Relation | Name | Status | Comments | + +------+ + + | Father | | | Suicide | | | | (Age | | | | | 52) | | + +------+ + + | Maternal Grandfather | | | | + +------+ + + | Mother | | | Pancreatic Cancer | | | | (Age | | | | | 83) | | + +------+ + + | Sister | | Alive | | + +------+ + + Social History + + + [...] + +---------+ + | Alcohol Use | Drinks/We | oz/Week | Comments | | | ek | | | + + +---------+ + | Yes | 2-3 | 0.0 | | | | Glasses | | | | | of wine | | | + + +---------+ [...] recent travel history available. | + + Last Filed Vital Signs + + + + | Vital Sign | Reading | Time Taken | + + + + | Blood Pressure | 124/62 | 01/27/20161254 PDT | + + + + | Pulse | 68 | 01/27/20161254 PDT | + + + + | Temperature | 36.9 C (98.4 F) | 01/20/2016813 PDT | + + + + | Respiratory Rate | 18 | 01/20/2016813 PDT | + + + + | Oxygen Saturation | 97% | 01/27/20161254 PDT | + + + + | Inhaled Oxygen | - | - | | Concentration | | | + + + + | Weight | 86.2 kg (190 lb 1.6 | 01/27/20161254 PDT | | | oz) | | + + + + | Height | 172.7 cm (5' 8") | 01/27/20161254 PDT | + + + + | Body Mass Index | 28.9 | 01/27/20161254 PDT | + + + + Plan of Treatment + + + + + | Health Maintenance | Due Date | Last Done | Comments | + + + + + | Vaccine: | | | | | Dtap/Tdap/Td (1 - | 4 | | | | Tdap) | | | | + + + + + | Vaccine: Zoster (2 | | 07/07/2012 | | | of 3) | 2 | | | + + + + + | Vaccine: Influenza | | 07/11/2015, 06/21/2014, | | | (Season Ended) | 9 | 07/07/2013 | | + + + + + | Vaccine: | Completed | 07/07/2015, 10/07/2009 | | | Pneumococcal 65+ | | | | | Low/Medium Risk | | | | + + + + + Implants + +--------+--------+ +--------+--------+--------+ | Implanted | Type | Area | Manufacture | Device | Shelf | Model | | | | | r | | Expira | / | | | | | | Identi | tion | Serial | | | | | | fier | Date | / Lot | + +--------+--------+ +--------+--------+--------+ | Lead Capsurefix Novus [id number] - | Lead | N/A: | [employer] - | | | [id number] | | [id number]: Qty: 1 on | | Heart | MEDT | | | /[id number] | | 01/19/2016 by [place], | | | | | | [id number] | | Jude Rodriguez MD | | | | | | / | + +--------+--------+ +--------+--------+--------+ | Lead Capsurefix Novus 5076 - | Lead | N/A: | [employer] - | | | 5076 | | [id number]: Qty: 1 on | | Heart | MEDT | | | /[id number] | | 01/19/2016 by [place], | | | | | | [address] | | Jude Rodriguez MD | | | | | | / | + +--------+--------+ +--------+--------+--------+ | Pacer Usama Darden Dev - | Pacema | Left: | [employer] - | | | [id number] | | [id number]: Qty: 1 on | ker | Chest | MEDT | | | / / | | 01/19/2016 by [place], | | | | | | | | Jude Rodriguez MD | | | | | | | + +--------+--------+ +--------+--------+--------+ Results Not on filefrom Last 3 Months Insurance + +--------+ +--------+ +---------+--------+ | Payer | Benefi | Subscriber | Effect | Phone | Address | Type | | | t Plan | ID | rey | | | | | | / | | Dates | | | | | | Group | | | | | | + +--------+ +--------+ +---------+--------+ | MEDICARE | MEDICA | [id number] | 04/06/20 | [phone] | | Medica | | | RE | | 00-Pre | 5 | | re | | | PART A | | sent | | | | | | AND B | | | | | | + +--------+ +--------+ +---------+--------+ | EQUITABLE INSURANCE | EQUITA | [id number] | 06/07/20 | [phone] | | Indemn | | | BLE | | 13-Pre | 0 | | ity | | | INS | | sent | | | | | | MDCR | | | | | | | | SUPPL | | | | | | + +--------+ +--------+ +---------+--------+ + +--------+ +--------+ + + | Guarantor Name | Accoun | Relation to | Date | Phone | Billing Address | | | t Type | Patient | of | | | | | | | | | | + +--------+ +--------+ + + | Iraida Damico | Person | Self [birth year] | [address] | | Steve | al/Fam | | 1935 | [phone] | [place] [address] | | | isa | | | 8 (Home) | | + +--------+ +--------+ + + | Iraida Damico | Person | Self | [birth year] | | [address] | | Steve | al/Fam | | 1935 | [phone] | [place] [address] | | | isa | | | 8 (Home) | | + +--------+ +--------+ + + Advance Directives Patient has advance care planning documents on file. For more information, please contact:[facility] [employer] [facility] [place] [address]
--- OUTSIDE RECORDS SUMMARY | ~2019-02-21 | XMS | Encounter Summary ---
Demographics + + + | Address | [address] | | | [place] [address] | + + + | Home Phone [...] Team Providers + +------+ + | Care White Shoe Examiner Name | Role | Phone | + [...] | | | | | | M.D.CHEST | | | | | | RADIOGRAPH: | | | | | | 4 Dictated 11/28/2003 | | | | | | | | | | | | COMPARISON: | | | | | | 4. FINDINGS: A | | | | | | left sided PICC line has | | | | | | been introduced with | | | | | | its tipapproximately 4.9 | | | | | | cm below the cavoatrial | | | | | | junction. No | | | | | | pneumothoraxis | | | | | | noted. Minimal | | | | | | basilar atelectasis is | | | | | | identified. Thecardio | | | | | | mediastinal silhouette | | | | | | is unchanged. | | | | | | IMPRESSION: 1. Left | | | | | | sided PICC line with its | | | | | | tip 4.9 cm below the | | | | | | cavoatrialjunction. N | | | | | | o pneumothorax. 2. | | | | | [...] | + +---------+ + + | [facility] DEPARTMENT OF | | | | | RADIOLOGY | | | | + +---------+ + + documented in this encounter Visit Diagnoses Not on filedocumented in this encounter"
--- OUTSIDE RECORDS SUMMARY | ~2019-02-21 | XMS | Encounter Summary ---
Demographics + + + | Address | [address] | | | [place] [address] | + + + | Home Phone | | + + + | Preferred Language | Unknown | + + + | Marital Status | Single | + + + | Judaism Affiliation | CAT | + + + | Race | White | + + + | Ethnic Group | Not or | + + + Author + + + | Author | [facility] | + + + | Organization | [facility] | + + + | Address | Unknown | + + + | Phone | Unavailable | + + + Support + + +---------+ + | Name | Relationship | Address | Phone | + + +---------+ + | Elizabeth Damico | ECON | Unknown | | + + +---------+ + Care Team Providers + +------+ + | Care Fish Inspector Name | Role | Phone | + +------+ + PCP | Unavailable | + +------+ + Encounter Details +--------+ + + + + | Date | Type | Department | Care Team | Description | +--------+ + + + + | 12/30/ | Lab | Dermatopathology | [facility], | | | 2018 | Requisition | [address] | [place] | | | | | Mail Code: CH16D | Clinic Dermatology | | | | | [facility] | [address] [facility] | | | | | and , | [place] | | | | | floor [place], [place] | [address] | | | | | [address] | | | | | | [phone] | | | +--------+ + + + [...] patchy | | | | | | zpje-hrwiz-ankue skin, | | | | | | [...] [facility] | Mailcode CH5D, [address] | [place] [address] | | | DERMATOPATHOLOGY | [address] | | | + + + + + documented in this encounter Visit Diagnoses + + | Diagnosis | + + | Neoplasm of uncertain behavior of skin | + + documented in this encounter
--- OUTSIDE RECORDS SUMMARY | ~2019-02-21 | XMS | Clinical Summary ---
Demographics + + + | Address | [address] | | | [place] [address] | + + + | Home Phone [...] Author | [facility] | | | and Jeovannyana | + + + | Organization | [facility] | | | and Jeovannyana | [...] [place] | | | | | [address] | | + + + + + | Scot Damico | ECON | [address] | | | | | [place] [address] | | + + + + + Care Team Providers + +------+ + | Care Terra Cotta Mold Maker Name | Role | Phone | [...] - | | | [id number] | | [id number]: Qty: 1 on | | Heart | MEDT | | | /[id number] | | 01/19/2016 by [place]ia, | | | | | | [address] | | Jude Rodriguez MD | | | | | | / | + +--------+--------+ +--------+--------+--------+ | Lead Capsurefix Novus 5076 - | Lead | N/A: | [employer] - | | | 5076 | | [id number]: Qty: 1 on | | Heart | MEDT | | | /[id number] | | 01/19/2016 by [place]ghia, | | | | | | [address] | | Jude Rodriguez MD | | | | | | / | + +--------+--------+ +--------+--------+--------+ | Pacer Usama Darden Dev - | Pacema | Left: | [employer] - | | | [id number] | | [id number]: Qty: 1 on | ker | Chest [...] +--------+ +---------+--------+ | MEDICARE | MEDICA | [id number] | 04/06/20 | [phone] | | Medica | | | RE | | 00-Pre | 5 | | re | | | PART A | | sent | | | | | | AND B | | | | | | + +--------+ +--------+ +---------+--------+ | EQUITABLE INSURANCE | EQUITA | [id number] | 06/07/20 | [phone] | | Indemn [...] | 1935 | [phone] | [place] [address] | | | isa | | | 8 (Home) | | + +--------+ +--------+ + + | Iraida Damico | Person | Self | [birth year] | [address] | | Steve | al/Fam | | 1935 | [phone] | [place] [address] | | | isa | | | 8 (Home) | | + +--------+ +--------+ + + Advance Directives Patient has advance care planning documents on file. For more information, please contact:[facility] [employer] [facility] [place] [place] [address]
--- OUTSIDE RECORDS SUMMARY | ~2019-02-21 | XMS | Encounter Summary ---
Demographics + + + | Address | [address] | | | [place] [address] | + + + | Home Phone [...] Author + + + | Author | [facility] | + + + | Organization | [facility] | + + + | Address | Unknown | + + + | Phone | Unavailable | + + + Support + + +---------+ + | Name | Relationship | Address | Phone | + + +---------+ + | Elizabeth Damico | ECON | Unknown | | + + +---------+ + Care Team Providers + +------+ + | Care Management Consultant Name | Role | Phone | + +------+ + PCP | Unavailable | + +------+ + Encounter Details +--------+ + + + + | Date | Type | Department | Care Team | Description | +--------+ + + + + | 07/05/ | Hospital | Dermatopathology | | | | 2013 | Encounter | [address] | | | | | | Mail Code: CH16D | | | | | | [facility] | | | | | | and [facility], [address]th | | | | | | [place], [place] | | | | | | [address] | | | | | | [phone] | | | +--------+ + + + [...] DESCRIPTION:A: | | | | | | Rosa Sanchez patch; r/o BCC.B: | | | | | | Irreg. shaped pigmented | | | | | | patch; flat SK, solar | | | | | | lentigo; r/o melanoma; | | | | | | hx.of 3 prior melanomas | | | | | | elsewhere on | | | | | | body. GROSS | | | | | | [...] pinkskin, | | | | | | [id number]. The surgical | | | | | [...] | | | | | | skin, [id number]. The | | | | | | [...] | | | | uniform size and | | | | | | shape. B: There | | | | | | is slight hyperplasia of | | | | | | the rete ridges with | | | | | | hyperpigmentationalong | | | | | | the basal layer and | | | | | | solar elastosis. 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 NOTE: | | | | | | There is no evidence of | | | | | | basal cell carcinoma in | | | | | | these sections. | | | | | | B: SOLAR | | | | | | LENTIGO. NOTE: | | | | | | There is no evidence of | | | | | | a melanocytic neoplasm | | | | | | in these | | | | | | sections. My | | | | | [...] David | | | | | | MTetePathologistKatherinei | | | | | | natalie [...] + + + | M[facility] | [address] | [place] [address] | | | DERMATOPATHOLOGY | [address] | | | + + + + + documented in this encounter Visit Diagnoses Not on filedocumented in this encounter
--- OUTSIDE RECORDS SUMMARY | ~2019-02-21 | XMS | Encounter Summary ---
Demographics + + + | Address | [address] | | | [place] [address] | + + + | Home Phone | | + + + | Preferred Language | Unknown | + + + | Marital Status | Single | + + + | Mandaen Affiliation | CAT | + + + [...] Team Providers + +------+ + | Care Psychology Associate Name | Role | Phone | + +------+ + PCP | Unavailable | + +------+ + Encounter Details +--------+ + + + + | Date | Type | Department | Care Team | Description | +--------+ + + + + | 12/01/ | Discharge | | Summary, Discharge | D/C Summary ODDS | | 2003 | Summary-Tra | | | | | | nscribed | | | | +--------+ + + [...] documented as of this encounter Discharge Summaries Interface, Deputy Sheriff Lieutenant In - 2005 6:08 PM PDTAdmission Date: 11/24/2003 Discharge Date: 12/01/2003 ATTENDING PHYSICIAN: Maria C Vences M.D. PRINCIPAL FINAL DIAGNOSIS: L3-4 epidural abscess/inflammatory tissue. ADDITIONAL DIAGNOSIS: 1. Anemia. 2. E Faecalis positive blood cultures from [facility]. PRINCIPAL PROCEDURE: L3 through 4 total laminectomy. Bilateral L3 to L4 and L4 to L5 foraminotomies. ADDITIONAL PROCEDURES: 1. November 27, 2003, PICC line placement. 2. Infectious disease consult. 3. Physical therapy/occupational therapy. 4. Postoperative x-ray November 28, 2003. HISTORY OF PRESENT ILLNESS: This is a 69-year-old man who presented to [facility] after several days of fevers and excruciating lower back pain. He did have a history of chronic, recurrent lower back pain for the past several years of a similar, but much lower intensity. Several years ago he saw a neurosurgeon and with an abscess of disc disease, he was felt not to be an operative candidate. Also, he has never shown signs of radicular pain. At [facility], blood was drawn on November 22, which grew E fecalis. His white count was 30,000. Hematocrit started at 34 and drifted down into the high 20s by the time of discharge from [facility], with iron level, and high reticulocyte count. MRI of the lumbar spine showed a large epidural abscess from L2 to S1. At this point, the decision was made to transfer this patient to [facility] for surgery with Maria C Vences M.D. PAST MEDICAL HISTORY: Negative. PAST SURGICAL HISTORY: Bilateral knee arthroscopy. PERSONAL/SOCIAL HISTORY: Occasional ETOH. ALLERGIES: No known drug allergies. MEDICATIONS: None. PHYSICAL EXAMINATION: VITAL SIGNS: Afebrile, 36.9. Vital signs stable. Strength is 5/5 bilaterally in the lower extremities with 2+ reflexes and downgoing toes. His sensory was intact in the bilateral lower extremities. MRI showed enhancing fluid collection in the area of L3-4, L4-5. HOSPITAL COURSE: The patient was admitted to intensive care unit on November 24, 2003 and taken to the operating room that day for laminectomy and removal of inflammatory tissue in the area of L3-4. Early in the admission the PICC line was placed and IV antibiotics, (vancomycin, ceftazidime, Flagyl), were started. Physical therapy and occupational therapy were consulted and a TLSO fitted for any activity out of bed. An infectious disease consult was called and they had the following recommendations: With the positive blood culture for E fecalis at [facility], infectious disease recommended colonoscopy as an outpatient. We also heath a CEA as an inpatient, which was negative. As suggested by the infectious disease doctors, we switched IV antibiotics to ampicillin, gentamicin, beginning on November 27, 2003. At this point we also started following daily lytes and heath a baseline CRP which was 9.2 and ESR which was 6.1. The infectious disease team recommended daily Chem-7 to check for low sodium as well as possible nephrotoxicity from the gentamicin. They also recommended sed rate and CRP to be drawn every two weeks, last drawn November 27, 2003. Physical therapy/occupational therapy continued to work with the patient, although he was quite painful. They recommended transfer to [facility] facility for further mobilization. The patient was discharged on December 01, 2003. On discharge, he had a sodium of 134. BUN was 11, creatinine was .8. White count was 18.7. Hematocrit was 29.3. He was discharged in stable condition to a nursing facility with a ride from his , with instructions to follow-up in neurosurgery clinic in two weeks, as well as obtain a colonoscopy exam as an outpatient to screen for colon cancer. He was instructed to wear his TLSO when out of bed. He will be followed at the facility by his primary care provider, Arturo Marcum, phone number [phone] and fax number [phone]. Tabby Mcnulty M.D. Maria C Vences M.D. Attending Physician KD:[email or web address] D: 11-30-2003 T: 11-30-2003 C: 12/02/2003 cr PLEASE FAX: [phone] signed by Interface, Deputy Sheriff Lieutenant In at 2005 6:08 PM PDTdocumented in this encounter Plan of Treatment Not on filedocumented as of this encounter Visit Diagnoses Not on filedocumented in this encounter"
--- OUTSIDE RECORDS SUMMARY | ~2019-02-21 | XMS | Encounter Summary ---
Demographics + + + | Address | [address] | | | [place] [address] | + + + | Home Phone [...] Author + + + | Author | [facility] | + + + | Organization | [facility] | + + + | Address | Unknown | + + + | Phone | Unavailable | + + + Support + + +---------+ + | Name | Relationship | Address | Phone | + + +---------+ + | Elizabeth Damico | ECON | Unknown | | + + +---------+ + Care Team Providers + +------+ + | Care Second Miller Name | Role | Phone | + +------+ + PCP | Unavailable | + +------+ + Encounter Details +--------+ + + + + | Date | Type | Department | Care Team | Description | +--------+ + + + + | 04/27/ | Results | Neurosurgery 3181 | Maria C Vences MD | | | 2003 | Only | Silvia Fonseca | [address] | | | | | [facility] | [place], [place] | | | | | Mailcode:OP14B | [address] | | | | | [employer] | [phone] | | | | | [place], [place] | | | | | | [address] | | | | | | [phone] | | | +--------+ + + + [...] | | | | | noted from | | | | | | L3-5. There | | | | | | ispersistent focal | | | | | | kyphosis and levo | | | | | | curvature of the lower | | | | | | lumbarspine. The | | | | | | upper lumbar and lower | | | | [...] | | | | L4-5. 3. Stable | | | | | | severe degenerative disc | | | | | | disease at L5-S1. | | | | + + + + + + + + | Specimen | + + | | + + + +---------+ + + | Performing | Address | City/State/Zipcode | Phone Number | | Organization | | | | + +---------+ + + | [facility] DEPARTMENT | | | | | RADIOLOGY | | | | + +---------+ + + documented in this encounter Visit Diagnoses Not on filedocumented in this encounter"
--- OUTSIDE RECORDS SUMMARY | ~2019-02-21 | XMS | Encounter Summary ---
Demographics + + + | Address | [address] | | | [place] [address] | + + + | Home Phone | | + + + | Preferred Language | Unknown | + + + | Marital Status | Single | + + + | Sikh Affiliation | CAT | + + + [...] Team Providers + +------+ + | Care Plywood And Veneer Repairer Name | Role | Phone | + [...] as of this encounter Progress Notes Interface, Forecast Analyst In - 05/06/2005 6:14 AM PDTClinic Date: [...] Maria C Vences M.D. LEO / WALDO [id number] / [id number] / [id number] / cc: Arturo Chatman M.D. [facility] [address] [place] [address] [id number] signed by Interface, Forecast Analyst In at 05/06/2005 6:1 4 AM PDTdocumented in this encounter Plan of Treatment Not on filedocumented as of this encounter Visit Diagnoses Not on filedocumented in this encounter"
--- OUTSIDE RECORDS SUMMARY | ~2019-02-21 | XMS | Encounter Summary ---
Demographics + + + | Address | [address] | | | [place] [address] | + + + | Home Phone [...] Author + + + | Author | [facility] | + + + | Organization | [facility] | + + + | Address | Unknown | + + + | Phone | Unavailable | + + + Support + + +---------+ + | Name | Relationship | Address | Phone | + + +---------+ + | Elizabeth Damico | ECON | Unknown | | + + +---------+ + Care Team Providers + +------+ + | Care Electrocardiograph Technician Name | Role | Phone | + +------+ + PCP | Unavailable | + +------+ + Encounter Details +--------+ + + + + | Date | Type | Department | Care Team | Description | +--------+ + + + + | 11/26/ | Documentati | Anesthesiology | Unknown . | | | 2003 | on | [address] | | | | | | [facility] | | | | | | [place], [place] | | | | | | [address] | | | +--------+ + + + [...] | + + | 11/26/2003 10:18 AM [facility] Anesthesia PostOp Report | | | | Patient: IRAIDA DAMICO [facility] Rec: [id number] Sex M Bdate: 1935 | | Date/Time Data | | Entered Into [facility] | | Anesth PostOp | | Surgery Date [id number] 11/26/03 10:18 | | Anesthesiologist NATHAN DIETRICH [...]
--- OUTSIDE RECORDS SUMMARY | ~2019-02-21 | XMS | Encounter Summary ---
Demographics + + + | Address | [address] | | | [place] [address] | + + + | Home Phone [...] Team Providers + +------+ + | Care Public Policy Manager Name | Role | Phone | [...] as of this encounter Discharge Summaries Interface, Tube Buffer In - 2005 6:08 PM PDTAdmission Date: 11/24/2003 Discharge Date: 12/01/2003 ATTENDING PHYSICIAN: Maria C Vences M.D. PRINCIPAL FINAL DIAGNOSIS: L3-4 epidural abscess/inflammatory tissue. ADDITIONAL DIAGNOSIS: 1. Anemia. 2. E Faecalis positive blood cultures from [facility]. PRINCIPAL PROCEDURE: L3 through 4 total laminectomy. Bilateral L3 to L4 and L4 to L5 foraminotomies. ADDITIONAL PROCEDURES: 1. November 27, 2003, PICC line placement. 2. Infectious disease consult. 3. Physical therapy/occupational therapy. 4. Postoperative x-ray November 28, 2003. HISTORY OF PRESENT ILLNESS: This is a 69-year-old man who presented to [facility] after several days of fevers and excruciating [...] never shown signs of radicular pain. At [facility], blood was drawn on November 22, which grew E fecalis. His white count was 30,000. Hematocrit started at 34 and drifted down into the high 20s by the time of discharge from [facility], with iron level, and high reticulocyte count. MRI of the lumbar spine showed a large epidural abscess from L2 to S1. At this point, the decision was made to transfer this patient to [facility] for surgery with Maria C Vences [...] positive blood culture for E fecalis at [facility], infectious disease recommended colonoscopy as an [...] was quite painful. They [facility]. The patient was [...] primary care provider, Arturo Marcum, phone number [phone] and fax number [phone]. Tabby Mcnulty M.D. Maria C Vences M.D. Attending Physician KD:[email or web address] D: 11-30-2003 T: 11-30-2003 C: 12/02/2003 cr PLEASE FAX: [phone] signed by Interface, Tube Buffer In at 2005 6:08 PM PDTdocumented in this encounter Plan of Treatment Not on filedocumented as of this encounter Visit Diagnoses Not on filedocumented in this encounter"
--- OUTSIDE RECORDS SUMMARY | ~2019-02-21 | XMS | Clinical Summary ---
Demographics + + + | Address | [address] | | | [place] [address] | + + + | Home Phone | | + + + | Preferred Language | Unknown | + + + | Marital Status | | + + + | Denominational Affiliation | 1041 | + + + | Race | Unknown | + + + | Ethnic Group | Unknown | + + + Author + + + | Author | [facility] [employer] | + + + | Organization | [facility] | + + + | Address | Unknown | + + + | Phone | Unavailable | + + + Support + + +---------+ + | Name | Relationship | Address | Phone | + + +---------+ + | Mary Damico | ECON | Unknown | | + + +---------+ + | Scot Damico | ECON | Unknown | | + + +---------+ + Care Team Providers + +------+ + | Care Communications Electrician Supervisor Name | Role | Phone | + +------+ + | Arturo Chatman MD | PP | | + +------+ + Allergies + + + + + + | Active Allergy | Reactions | Severity | Noted | Comments | | | | | Date | | + + + + + + | Lisinopril | Cough | Low | 08/26/20 | Cough | | | | | 16 | | + + + + + + Current Medications + + +-------+---------+------+------+-------+ | Prescription | Sig. | Disp. | Refills | Star | End | Statu | | | | | | t | Date | s | | | | | | Date | | | + + +-------+---------+------+------+-------+ | acetaminophen | Take 500 mg by mouth | | | | | Activ | | (TYLENOL) 500 MG | every 6 (six) hours | | | | | e | | tablet | as needed for Pain. | | | | | | + + +-------+---------+------+------+-------+ | | Take by mouth. | | | | | Activ | | Aspirin-Acetaminophe | | | | | | e | | n-Caffeine (EXCEDRIN | | | | | | | | PO) | | | | | | | + + +-------+---------+------+------+-------+ Active Problems Not on file Social History + +-------+ +--------+------+ | Tobacco Use | Types | Packs/Day | Years | Date | | | | | Used | | + +-------+ +--------+------+ | Never Smoker | | | | | + +-------+ +--------+------+ + +---+---+---+ | Smokeless Tobacco: | | | | | Never Used | | | | + +---+---+---+ + + +---------+ + | Alcohol Use | Drinks/We | oz/Week | Comments | | | ek | | | + + +---------+ + | Yes | | | weekly | + + +---------+ + + + + | Sex Assigned at | Date Recorded | | | | + + + | Not on file | | + + + Last Filed Vital Signs + + + + | Vital Sign | Reading | Time Taken | + + + + | Blood Pressure | 179/81 | 08/26/2016 2:09 PM PST | + + + + | Pulse | 80 | 08/26/2016 2:09 PM PST | + + + + | Temperature | 36.5 C (97.7 F) | 08/26/2016 2:09 PM PST | + + + + | Respiratory Rate | 16 | 08/26/2016 2:09 PM PST | + + + + | Oxygen Saturation | 100% | 08/26/2016 2:09 PM PST | + + + + | Inhaled Oxygen | - | - | | Concentration | | | + + + + | Weight | 83.9 kg (185 lb) | 08/21/2016 10:42 PM PST | + + + + | Height | - | - | + + + + | Body Mass Index | - | - | + + + + Plan of Treatment Not on file Results Not on filefrom Last 3 Months Insurance + +--------+ +------+-------+ + | Payer | Benefi | Subscriber | Type | Phone | Address | | | t Plan | ID | | | | | | / | | | | | | | Group | | | | | + +--------+ +------+-------+ + | AUTO INSURANCE | STATE | [id number] | | | | | | FARM | | | | | | | AUTO | | | | | | | INSURA | | | | | | | NCE | | | | | + +--------+ +------+-------+ + | MEDICARE | MEDICA | [id number] | | | [address] | | | RE | | | | [place] [id number] | | | IP-OP | | | | | + +--------+ +------+-------+ + | COMMERCIAL OTHER | COMMER | [id number] | | | | | | CIAL | | | | | | | GENERI | | | | | | | C PLAN | | | | | + +--------+ +------+-------+ + + +--------+ +--------+ + + | Guarantor Name | Accoun | Relation to | Date | Phone | Billing Address | | | t Type | Patient | of | | | | | | | | | | + +--------+ +--------+ + + | IRAIDA DAMICO | Person | Self [birth year] | Home: | [address] | | | al/Fam | | 1935 | +- | [place], [place] | | | isa | | | [phone] | [address] | + +--------+ +--------+ + + | IRAIDA DAMICO | Third | Self | [birth year] | Home: | [address] | | | Green Party | | 1935 | [phone] | [place], [place] | | | Liabil | | | [address] | [phone] | | | ity | | | | | + +--------+ +--------+ + +"
--- OUTSIDE RECORDS SUMMARY | ~2019-02-21 | XMS | Encounter Summary ---
Demographics + + + | Address | [address] | | | [place] [address] | + + + | Home Phone | | + + + | Preferred Language | Unknown | + + + | Marital Status | Single | + + + | Nondenominational Affiliation | CAT | + + + [...] Team Providers + +------+ + | Care American Indian Studies Professor Name | Role | Phone | + [...]
--- OUTSIDE RECORDS SUMMARY | ~2019-02-21 | XMS | Encounter Summary ---
Demographics + + + | Address | [address] | | | [place] [address] | + + + | Home Phone [...] Author + + + | Author | [facility] | + + + | Organization | [facility] | + + + | Address | Unknown | + + + | Phone | Unavailable | + + + Support + + +---------+ + | Name | Relationship | Address | Phone | + + +---------+ + | Elizabeth Damico | ECON | Unknown | | + + +---------+ + Care Team Providers + +------+ + | Care Industrial Production Manager Name | Role | Phone | [...] [address] | | | | | | [facility] | | | | | | [place], [place] | | | | | | [address] | | | +--------+ + + + [...] | + + | 11/26/2003 10:18 AM [facility] Anesthesia PostOp Report | | | | Patient: IRAIDA DAMICO [facility] Rec: [id number] Sex M Bdate: 1935 | | Date/Time Data | | Entered Into [facility] | | Anesth PostOp | | Surgery Date [id number] 11/26/03 10:18 | | Anesthesiologist NATHAN DIETRICH [...]
--- OUTSIDE RECORDS SUMMARY | ~2019-02-21 | XMS | Encounter Summary ---
Demographics + + + | Address | [address] | | | [place] [address] | + + + | Home Phone [...] Team Providers + +------+ + | Care Tankage Supervisor Name | Role | Phone | [...]
--- OUTSIDE RECORDS SUMMARY | ~2019-02-21 | XMS | Encounter Summary ---
Demographics + + + | Address | [address] | | | [place] [address] | + + + | Home Phone [...] Team Providers + +------+ + | Care Spectrographer Name | Role | Phone | + [...] as of this encounter Progress Notes Interface, Lathe Mechanic In - 2005 6:08 PM PDT [place] [address] [address] or November 29, 2003 Ralph Chatman M.D. [address] [address] RE: PRABHAKAR DAMICO MR #: [id number] Dear Dr. Chatman: It was our pleasure to evaluate Mr. Damico who is your patient. The Infectious Disease Team was consulted regarding Mr. Damico's epidural abscess. Mr. Damico developed fevers and back pain around November 20, 2003. He was evaluated and admitted to [facility] on November 22, 2003, where an MRI showed an epidural abscess in the L3-L4 region. He was transferred to [facility] on November 24, 2003, and underwent L4-L5 laminectomy as well as foraminotomy on November 25, 2002. Of note, his blood cultures from [facility] grew for the 4 bottles for Enterococcus faecalis. His blood cultures at [facility] are all negative today. Mr. Damico [...] questions. We can be reached to the [facility] byproducts pump operator: [phone]. Sincerely, MD Nabil Lundy MD / [id number] / [id number] / [id number] / Tdocumented in this encounter Plan of Treatment Not on filedocumented as of this encounter Visit Diagnoses Not on filedocumented in this encounter"
--- OUTSIDE RECORDS SUMMARY | ~2019-02-21 | XMS | Encounter Summary ---
Demographics + + + | Address | [address] | | | [place] [address] | + + + | Home Phone [...] + + + | Author | [facility] | + + + | Organization | [facility] | + + + | Address | Unknown | + + + | Phone | Unavailable | + + + Support + + +---------+ + | Name | Relationship | Address | Phone | + + +---------+ + | Elizabeth Damico | ECON | Unknown | | + + +---------+ + Care Team Providers + +------+ + | Care File Drawer Finisher Name | Role | Phone | + +------+ + PCP | Unavailable | + +------+ + Encounter Details +--------+ + + + + | Date | Type | Department | Care Team | Description | +--------+ + + + + | 12/11/ | Ancillary | [facility] Faculty | | | | 2007 | Registratio | Practice [address] | | | | | n | [facility] | | | | | | [place] [address] | | | | | | [phone] | | | +--------+ + + + [...]
--- OUTSIDE RECORDS SUMMARY | ~2019-02-21 | XMS | Clinical Summary ---
Demographics + + + | Address | [address] | | | [place] [address] | + + + | Home Phone | | + + + | Preferred Language | Unknown | + + + | Marital Status | | + + + | Episcopalian Affiliation | 1041 | + + + | Race | Unknown | + + + | Ethnic Group | Unknown | + + + Author + + + | Author | [facility] [employer] | + + + | Organization | [facility] [facility] | + + + | Address [...] Team Providers + +------+ + | Care Class A Truck Driver Name | Role | Phone | [...] + | AUTO INSURANCE | STATE | [id number] | | | | | | FARM | | | | | | | AUTO | | | | | | | INSURA | | | | | | | NCE | | | | | + +--------+ +------+-------+ + | MEDICARE | MEDICA | [id number] | | | [address] | | | RE | | | | [place] [address] | | | IP-OP | | | | | + +--------+ +------+-------+ + | COMMERCIAL OTHER | COMMER | [id number] | | | | | | CIAL [...] | isa | | | [address] | [phone] | + +--------+ +--------+ + + | IRAIDA DAMICO | Third | Self | [birth year] | Home: | [address] | | | Libertarian | | 1935 | [phone] | [place], [place] | | | Liabil | | | [address] | [phone] | | | ity | | | | | + +--------+ +--------+ + +"
--- OUTSIDE RECORDS SUMMARY | ~2019-02-21 | XMS | Encounter Summary ---
Demographics + + + | Address | [address] | | | [place] [address] | + + + | Home Phone [...] Team Providers + +------+ + | Care Volunteer Coordinator Name | Role | Phone | [...] Clinic Dermatology | | | | | [facility] | [address] [address] | | | | | and , | [address] | | | | | floor [place], [place] | [address] | | | | | [address] | | | | | | [phone] | | | +--------+ + + + [...] patchy | | | | | | jair-qwehn-ozwtk skin, | | | | | | [...] [facility] | [address], [address] | [place] [address] | | | DERMATOPATHOLOGY | [address] | | | + + + + + documented in this encounter Visit Diagnoses + + | Diagnosis | + + | Neoplasm of uncertain behavior of skin | + + documented in this encounter
--- OUTSIDE RECORDS SUMMARY | ~2019-02-21 | XMS | Encounter Summary ---
Demographics + + + | Address | [address] | | | [place] [address] | + + + | Home Phone [...] Author + + + | Author | [facility] | + + + | Organization | [facility] | + + + | Address | Unknown | + + + | Phone | Unavailable | + + + Support + + +---------+ + | Name | Relationship | Address | Phone | + + +---------+ + | Elizabeth Damico | ECON | Unknown | | + + +---------+ + Care Team Providers + +------+ + | Care Multiple Punch Press Operator Name | Role | Phone | [...] [address] | | | | | | [facility] | | | | | | and [facility], [address]th | | | | | | [place], [place] | | | | | | [address] | | | | | | [phone] | | | +--------+ + + + [...] | | | | | | cassette. [id number] | | | | | | AB. [...] | | | | | | cassette. [id number] | | | | | | BGross performed at: | | | | | | [facility], | | | | | | [address] [facility], | | | | | | [place] | | | | | | [address]. | | | | | | MICROSCOPIC [...] [facility] | [address], [address] | [place] [address] | | | LIGIA | [address] | | | + + + + + documented in this encounter Visit Diagnoses Not on filedocumented in this encounter"
--- OUTSIDE RECORDS SUMMARY | ~2019-02-21 | XMS | Encounter Summary ---
Demographics + + + | Address | [address] | | | [place] [address] | + + + | Home Phone [...] Team Providers + +------+ + | Care Automotive Service Manager Name | Role | Phone | [...] | Transcriptions | + + | Interface, Long Term In - 09/26/2005 6:19 AM PST Date: | | 11/25/2003Attending Surgeon: Maria C Vences M.D.Bullard Operator(s): | | Mc Arnold M.D.Preoperative Diagnosis:L3-L4 [...] midline skin incision was done from the K4tdsvdwt process to L5 spinous process and then [...] M.D.Maria C Vences, | | PIPE / [id number] / [id number] / [id number] / [id number]: 11/25/2003T: 11/26/2003 | | | |Indications: | [...] | | | |AD / HS | |[id number] / [id number] / [id number] / [id number] | | | | | + + documented in this encounter Visit Diagnoses Not on filedocumented in this encounter"
--- OUTSIDE RECORDS SUMMARY | ~2019-02-21 | XMS | Encounter Summary ---
Demographics + + + | Address | [address] | | | [place] [address] | + + + | Home Phone [...] | + + +---------+ + | Elizabeth aDmico | ECON | Unknown | | + + +---------+ + Care Team Providers + +------+ + | Care Youth Officer Name | Role | Phone | [...] as of this encounter Progress Notes Interface, Territory Development Manager In - 2005 10:48 PM PDTClinic Date: [...] x-ray. Francis Moe M.D. CONSTANCE / WALDO [id number] / [id number] / [id number] / Tdocumented in this encounter Plan of Treatment Not on filedocumented as of this encounter Visit Diagnoses Not on filedocumented in this encounter"
--- OUTSIDE RECORDS SUMMARY | ~2019-02-21 | XMS | Encounter Summary ---
Demographics + + + | Address | [address] | | | [place] [address] | + + + | Home Phone | | + + + | Preferred Language | Unknown | + + + | Marital Status | Single | + + + | Gnosticist Affiliation | CAT | + + + [...] Team Providers + +------+ + | Care Mine Environmental Engineer Name | Role | Phone | [...] | | | | | lumbar degenerative | | | | | | disc disease without | | | | | | fractures. | | | | | | 2. Questionable | | | | | | endplate irregularity at | | | | | | the L3 -- L4 | | | | | | disc. This maymerely | | | | | | be geometric distortion | | | | | | from the | | | | | [...] | | + +---------+ + + | [facility] DEPARTMENT OF | | | | [...] | + + + + + | [facility] | [address] [facility] | [place] [address] | | | PATHOLOGY | [address] | | | + + + + + | [facility] | [address] [facility] | [place] [address] | | | PATHOLOGY | [address] [...] + + + | [facility] | [address] | [place] [address] | | | LABORATORY | | | [...] DEPARTMENT OF | [address] | [place] [address] | | | PATHOLOGY | [address] | | | + + + + + | [place] DEPARTMENT OF | [address] | [place] [address] | | | PATHOLOGY | [address] [...] | + + + + + | [facility] DEPARTMENT | [address] [facility] | [place] [address] | | | PATHOLOGY | [address] | | | + + + + + | [facility] | [address] [facility] | [place] [address] | | | PATHOLOGY | [address] [...] | + + + + + | [facility] | [address] | [place] [address] | | | PATHOLOGY | [address] | | | + + + + + | [facility] | [address] [facility] | [place] [address] | | | PATHOLOGY | [address] | | | + + + + + documented in this encounter Visit Diagnoses Not on filedocumented in this encounter"
--- OUTSIDE RECORDS SUMMARY | ~2019-02-21 | XMS | Encounter Summary ---
Demographics + + + | Address | [address] | | | [place] [address] | + + + | Home Phone [...] Author + + + | Author | [facility] | + + + | Organization | [facility] | + + + | Address | Unknown | + + + | Phone | Unavailable | + + + Support + + +---------+ + | Name | Relationship | Address | Phone | + + +---------+ + | Elizabeth Damico | ECON | Unknown | | + + +---------+ + Care Team Providers + +------+ + | Care Sports Psychologist Name | Role | Phone | + +------+ + PCP | Unavailable | + +------+ + Encounter Details +--------+ + + + + | Date | Type | Department | Care Team | Description | +--------+ + + + + | 12/11/ | Ancillary | [facility] Faculty | | | | 2007 | Registratio | Practice [address] | | | | | n | [facility] | | | | | | [place] [address] | | | | | | [phone] | | | +--------+ + + + [...]
--- OUTSIDE RECORDS SUMMARY | ~2019-02-21 | XMS | Encounter Summary ---
Demographics + + + | Address | [address] | | | [place] [address] | + + + | Home Phone [...] Team Providers + +------+ + | Care Moss Gatherer Name | Role | Phone | + [...] | | + +---------+ + + | [facility] DEPARTMENT OF | | | | [...] | + + + + + | [facility] | [address] [facility] | [place] [address] | | | PATHOLOGY | [address] | | | + + + + + | [facility] | [address] [facility] | [place] [address] | | | PATHOLOGY | [address] [...] + + + | [facility] | [address] | [place] [address] | | | LABORATORY | | | [...] DEPARTMENT OF | [address] | [place] [address] | | | PATHOLOGY | [address] | | | + + + + + | [place] DEPARTMENT OF | [address] | [place] [address] | | | PATHOLOGY | [address] [...] | + + + + + | [facility] DEPARTMENT | [address] [facility] | [place] [address] | | | PATHOLOGY | [address] | | | + + + + + | [facility] | [address] | [place] [address] | | | PATHOLOGY | [address] [...] | + + + + + | [facility] | [address] | [place] [address] | | | PATHOLOGY | [address] | | | + + + + + | [facility] | [address] [facility] | [place] [address] | | | PATHOLOGY | [address] | | | + + + + + documented in this encounter Visit Diagnoses Not on filedocumented in this encounter"
--- OUTSIDE RECORDS SUMMARY | ~2019-02-21 | XMS | Encounter Summary ---
Demographics + + + | Address | [address] | | | [place] [address] | + + + | Home Phone | | + + + | Preferred Language | Unknown | + + + | Marital Status | Single | + + + | Taoism Affiliation | CAT | + + + | Race | White | + + + | Ethnic Group | Not or | + + + Author + + + | Author | [facility] | + + + | Organization | [facility] | + + + | Address | Unknown | + + + | Phone | Unavailable | + + + Support + + +---------+ + | Name | Relationship | Address | Phone | + + +---------+ + | Elizabeth Damico | ECON | Unknown | | + + +---------+ + Care Team Providers + +------+ + | Care Acid Crane Operator Name | Role | Phone | [...] [address] | | | | | | [facility] | | | | | | and [facility], [address]th | | | | | | [place], [place] | | | | | | [address] | | | | | | [phone] | | | +--------+ + + + [...] patchy | | | | | | egsph-untr-sqh-brown | | | | | | skin, [id number]. | | | | | | Thesurgical [...] papular | | | | | | zpb-vscw-lqens skin, | | | | | | [id number]. Thesurgical | | | | | | [...] patchy | | | | | | dycpn-nhdu-jik skin, | | | | | | [id number]. Thesurgical | | | | | | [...] + + | [facility] | [address], [address] | [place] [address] | | | DERMATOPATHOLOGY | [address] [...]
--- OUTSIDE RECORDS SUMMARY | ~2019-02-21 | XMS | Encounter Summary ---
Demographics + + + | Address | [address] | | | [place] [address] | + + + | Home Phone [...] Team Providers + +------+ + | Care Drain Technician Name | Role | Phone | [...] CH16D | | | | | | [facility] | | | | | | and [facility], 5th | | | | | | floor [place], [place] | | | | | | [address] | | | | | | [phone] | | | +--------+ + + + [...] | + +--------+ + + + | DERMATOPATHOLOGY([facility] Routin | 01/10/2012 | | Results for this | | [facility]) | e | | | procedure are in the | | | | | | results section. | + +--------+ + + + documented in this encounter Results DERMATOPATHOLOGY(WET [facility]) (01/10/2012) + + + + + + [...] Damico | | | | | | Uriah:A: Specimen is | | | | | | labeled "Chest" and | | | | | | consists of an ellipse | | | | | | of garcia-white | | | | | | [id number]. The | | | | | | [...] [facility] | [address], [address] | [place] [address] | | | DERMATOPATHOLOGY | [address] | | | + + + + + documented in this encounter Visit Diagnoses Not on filedocumented in this encounter
--- OUTSIDE RECORDS SUMMARY | ~2019-02-21 | XMS | Encounter Summary ---
Demographics + + + | Address | [address] | | | [place] [address] | + + + | Home Phone [...] Team Providers + +------+ + | Care Scaffold Worker Name | Role | Phone | [...] | | + +---------+ + + | [facility] DEPARTMENT OF | | | | | RADIOLOGY | | | | + +---------+ + + documented in this encounter Visit Diagnoses Not on filedocumented in this encounter"
--- OUTSIDE RECORDS SUMMARY | ~2019-02-21 | XMS | Clinical Summary ---
Demographics + + + | Address | [address] | | | [place] [address] | + + + | Home Phone [...] Team Providers + +------+ + | Care Texture Artist Name | Role | Phone | + +------+ + PP | Unavailable | + +------+ + Source Comments MELVIN is fully live on both [facility] Amb[facility] and [facility] InPatient.[facility] Allergies No Known Allergies Medications Not on [...] | | | | | | | [address] | | + +--------+ +--------+ + +--------+ [...] | 1935 | [phone] | [place] [address] | | | isa | | | [address] (Home) | | + +--------+ +--------+ + +"
--- OUTSIDE RECORDS SUMMARY | ~2019-02-21 | XMS | Encounter Summary ---
Demographics + + + | Address | [address] | | | [place] [address] | + + + | Home Phone [...] Team Providers + +------+ + | Care Service Delivery Management Consultant Name | Role | Phone [...] as of this encounter Progress Notes Interface, Pulley Man In - 05/06/2005 6:14 AM PDTClinic Date: [...] Maria C Vences M.D. LEO / WALDO [id number] / [id number] / [id number] / cc: Arturo Chatman M.D. [facility] [address] [place] [address] [id number] signed by Interface, Pulley Man In at 05/06/2005 6:1 4 AM PDTdocumented in this encounter Plan of Treatment Not on filedocumented as of this encounter Visit Diagnoses Not on filedocumented in this encounter"
--- OUTSIDE RECORDS SUMMARY | ~2019-02-21 | XMS | Encounter Summary ---
Demographics + + + | Address | [address] | | | [place] [address] | + + + | Home Phone [...] Author + + + | Author | [facility] | + + + | Organization | [facility] | + + + | Address | Unknown | + + + | Phone | Unavailable | + + + Support + + +---------+ + | Name | Relationship | Address | Phone | + + +---------+ + | Elizabeth Damico | ECON | Unknown | | + + +---------+ + Care Team Providers + +------+ + | Care Coil Winder Repair Name | Role | Phone | + [...] CH16D | | | | | | [facility] | | | | | | and [facility], 5th | | | | | | [place], [place] | | | | | | [address] | | | | | | [phone] | | | +--------+ + + + [...] DESCRIPTION:A: | | | | | | [place] patch; r/o BCC.B: | | | | [...] Damico, | | | | | | Yfian:A: Specimen is | | | | | | labeled "A: Back" and | | | | | | consists of an irregular | | | | | | shave of pinkskin, | | | | | | [id number]. The surgical | | | | | [...] | | | | | | skin, [id number]. The | | | | | | [...] + + | MELVIN | [address] | [place] [address] | | | DERMATOPATHOLOGY | [address] | | | + + + + + documented in this encounter Visit Diagnoses Not on filedocumented in this encounter
--- OUTSIDE RECORDS SUMMARY | ~2019-02-21 | XMS | Encounter Summary ---
Demographics + + + | Address | [address] | | | [place] [address] | + + + | Home Phone [...] Author + + + | Author | [facility] | + + + | Organization | [facility] | + + + | Address | Unknown | + + + | Phone | Unavailable | + + + Support + + +---------+ + | Name | Relationship | Address | Phone | + + +---------+ + | Elizabeth Damico | ECON | Unknown | | + + +---------+ + Care Team Providers + +------+ + | Care Wire Mill Operator Name | Role | Phone | [...] [place] | | | | | | [address] | | | | | | | [...] DERMATOPATH | | | MNT) | [place] [address] | | OLOGY | | | | [...] MEL[facility]IN | Mail[address], [address] | [place] [address] | | | DERMATOPATHOLOGY | [address] | | | + + + + + documented in this encounter Visit Diagnoses Not on filedocumented in this encounter
--- OUTSIDE RECORDS SUMMARY | ~2019-02-21 | XMS | Encounter Summary ---
Demographics + + + | Address | [address] | | | [place] [address] | + + + | Home Phone | | + + + | Preferred Language | Unknown | + + + | Marital Status | Single | + + + | Amish Affiliation | CAT | + + + [...] Providers + +------+ + | Care Store Product Demonstrator Name | Role | Phone | + +------+ + PCP | Unavailable | + +------+ + Encounter Details +--------+ + + + + | Date | Type | Department | Care Team | Description | +--------+ + + + + | 11/25/ | Results | | Other, Faculty | | | 2003 | Only | | [phone] | | +--------+ + + + + [...] DEPARTMENT OF | [address] | [place] [address] | | | PATHOLOGY | [address] | | | + + + + + | [facility] DEPARTMENT OF | [address] | [place] [address] | | | PATHOLOGY | [address] [...] + + + + | [facility] | [address] | [place] [address] | | | PATHOLOGY | [address] | | | + + + + + | [facility] | [address] | [place] [address] | | | PATHOLOGY | [address] [...] + + + | [facility] | [address] | [place] [address] | | | LAB-MICRO | | | [...] + + + | [facility] | [address] | [place] [address] | | | LAB-MICRO | | | | + + + + + documented in this encounter Visit Diagnoses Not on filedocumented in this encounter"
--- OUTSIDE RECORDS SUMMARY | ~2019-02-21 | XMS | Encounter Summary ---
Demographics + + + | Address | [address] | | | [place] [address] | + + + | Home Phone [...] + + + | Author | [facility] | + + + | Organization | [facility] | + + + | Address | Unknown | + + + | Phone | Unavailable | + + + Support + + +---------+ + | Name | Relationship | Address | Phone | + + +---------+ + | Elizabeth Damico | ECON | Unknown | | + + +---------+ + Care Team Providers + +------+ + | Care Patient Assistant Name | Role | Phone | [...] W | | | | ON | [facility] 4th Floor [address] | [facility] | | | | | [address] Mail | Road [place], [place] | | | | | Code: [address] | [address] | | | | | for Health and | | | | | | Healing,4th Floor | | | | | | [place], [place] | | | | | | [address] | | | | | | [phone] | | | +--------+ + + + [...]
--- OUTSIDE RECORDS SUMMARY | ~2019-02-21 | XMS | Encounter Summary ---
Demographics + + + | Address | [address] | | | [place] [address] | + + + | Home Phone [...] Author + + + | Author | [facility] | + + + | Organization | [facility] | + + + | Address | Unknown | + + + | Phone | Unavailable | + + + Support + + +---------+ + | Name | Relationship | Address | Phone | + + +---------+ + | Elizabeth Daimco | ECON | Unknown | | + + +---------+ + Care Team Providers + +------+ + | Care Antique Collector Name | Role | Phone | + +------+ + PCP | Unavailable | + +------+ + Encounter Details +--------+ + + + + | Date | Type | Department | Care Team | Description | +--------+ + + + + | 11/25/ | Results | Neurosurgery 3181 | Maria C Vences MD | | | 2003 | Only | Silvia Fonseca | [address] | | | | | [facility] | [place], [place] | | | | | Mailcode:OP14B | [address] | | | | | [facility] | [phone] | | | | | [place], [place] | | | | | | [address] | | | | | | [phone] | | | +--------+ + + + [...] | + +---------+ + + | [facility] DEPARTMENT OF | | | | | [...] + + + + + | [facility] DEPARTMENT OF | [address] [facility] | [place] [address] | | | PATHOLOGY | [address] | | | + + + + + | [facility] DEPARTMENT OF | [address] [facility] | [place] [address] | | | PATHOLOGY | [address] [...] | + + + + + | [facility] | [address] | [place] [address] | | | PATHOLOGY | [address] | | | + + + + + | [facility] | [facility] [address] | [place] [address] | | | PATHOLOGY | [address] [...] | + + + + + | [facility] | [address] [facility] | [place] [address] | | | PATHOLOGY | [address] | | | + + + + + | [facility] | [address] [facility] | [place] [address] | | | PATHOLOGY | [address] [...] DEPARTMENT OF | [address] | [place] [address] | | | PATHOLOGY | [address] | | | + + + + + | [facility] DEPARTMENT OF | [address] | [place] [address] | | | PATHOLOGY | [address] [...] | + + + + + | [facility] | [facility] | [place] [address] | | | PATHOLOGY | [address] | | | + + + + + | [facility] DEPARTMENT OF | [facility] | [place] [address] | | | PATHOLOGY | [address] [...] + + + + + | [facility] DEPARTMENT OF | [address] [facility] | [place] [address] | | | PATHOLOGY | [address] | | | + + + + + | [facility] DEPARTMENT OF | [address] [facility] | [place] [address] | | | PATHOLOGY | [address] [...] + + + + + | [facility] DEPARTMENT OF | [facility] | [place] [address] | | | PATHOLOGY | [address] | | | + + + + + | [facility] DEPARTMENT OF | [facility] | [place] [address] | | | PATHOLOGY | [address] [...] | + + + + + | [facility] | [address] [facility] | [place] [address] | | | PATHOLOGY | [address] | | | + + + + + | [facility] | [address] | [place] [address] | | | PATHOLOGY | [address] [...] + + + | [facility] | [address] | [place] [address] | | | LAB-MICRO | | | [...] + + + | [facility] | [address] | [place] [address] | | | LAB-MICRO | | | [...] + + + + + | [facility] DEPARTMENT OF | [address] [facility] | [place] [address] | | | PATHOLOGY | [address] | | | + + + + + | [facility] DEPARTMENT OF | [address] [facility] [address] | [place] [address] | | | PATHOLOGY | [address] [...] | + + + + + | [facility] | [address] | [place] [address] | | | PATHOLOGY | [address] | | | + + + + + | [facility] | [facility] [address] | [place] [address] | | | PATHOLOGY | [address] [...] DEPARTMENT OF | [address] | [place] [address] | | | PATHOLOGY | [address] | | | + + + + + | [facility] | [address] | [place] [address] | | | PATHOLOGY | [address] | | | + + + + + documented in this encounter Visit Diagnoses Not on filedocumented in this encounter"
--- OUTSIDE RECORDS SUMMARY | ~2019-02-21 | XMS | Encounter Summary ---
Demographics + + + | Address | [address] | | | [place] [address] | + + + | Home Phone | | + + + | Preferred Language | Unknown | + + + | Marital Status | Single | + + + | Congregational Affiliation | CAT | + + + | Race | White | + + + | Ethnic Group | Not or | + + + Author + + + | Author | [facility] | + + + | Organization | [facility] | + + + | Address | Unknown | + + + | Phone | Unavailable | + + + Support + + +---------+ + | Name | Relationship | Address | Phone | + + +---------+ + | Elizabeth Damico | ECON | Unknown | | + + +---------+ + Care Team Providers + +------+ + | Care Back Tender Cylinder Name | Role | Phone | + +------+ + PCP | Unavailable | + +------+ + Encounter Details +--------+ + + + + | Date | Type | Department | Care Team | Description | +--------+ + + + + | 04/27/ | Results | Neurosurgery 3181 | Maria C Vences MD | | | 2003 | Only | [facility] | [address] | | | | | [facility] | [place], [place] | | | | | Mailcode:OP14B | [address] | | | | | [address] | [phone] | | | | | [place], [place] | | | | | | [address] | | | | | | [phone] | | | +--------+ + + + [...] | | + +---------+ + + | [facility] DEPARTMENT | | | | | RADIOLOGY | | | | + +---------+ + + documented in this encounter Visit Diagnoses Not on filedocumented in this encounter"
--- OUTSIDE RECORDS SUMMARY | ~2019-02-21 | XMS | Encounter Summary ---
Demographics + + + | Address | [address] | | | [place] [address] | + + + | Home Phone [...] Team Providers + +------+ + | Care Barrel Rifler Hook Name | Role | Phone | + [...] as of this encounter Progress Notes Interface, Corking Machine Operator In - 2005 10:48 PM [...] x-ray. Francis Moe M.D. CONSTANCE / WALDO [id number] / [id number] / [id number] / Tdocumented in this encounter Plan of Treatment Not on filedocumented as of this encounter Visit Diagnoses Not on filedocumented in this encounter"
--- OUTSIDE RECORDS SUMMARY | ~2019-02-21 | XMS | Encounter Summary ---
Demographics + + + | Address | [address] | | | [place] [address] | + + + | Home Phone [...] Team Providers + +------+ + | Care Rehabilitation Specialist Name | Role | Phone | [...] as of this encounter Progress Notes Interface, Mosaic Technician In - 2005 6:08 PM PDT [place] [address] [address] or November 29, 2003 Ralph Chatman M.D. [address] [address] RE: PRABHAKAR DAMICO MR #: [id number] Dear Dr. Chatman: It was our pleasure to evaluate Mr. Damico who is your patient. The Infectious Disease Team was consulted regarding Mr. Damico's epidural abscess. Mr. Damico developed fevers and back pain around November 20, 2003. He was evaluated and admitted to [facility] on November 22, 2003, where an MRI showed an epidural abscess in the L3-L4 region. He was transferred to [facility] on November 24, 2003, and underwent L4-L5 laminectomy as well as foraminotomy on November 25, 2002. Of note, his blood cultures from [facility] grew for the 4 bottles for Enterococcus faecalis. His blood cultures at [facility] are all negative today. Mr. Damico most [...] questions. We can be reached to the [facility] forming operator: [phone]. Sincerely, MD Nabil Lundy MD / [id number] / [id number] / [id number] / Tdocumented in this encounter Plan of Treatment Not on filedocumented as of this encounter Visit Diagnoses Not on filedocumented in this encounter"
[2019-02-21] MEDS ORDERED: NORCO 5-325 TA1 EACH PO (14:51)
== END 2019-02-21 15:00 | disposition home or self-care (01) ==
LOC: ED 13:59
DX: S42.202A Unspecified fracture of upper end of left humerus, initial encounter for closed fracture (principal); Z88.8 Allergy status to other drugs, medicaments and biological substances; Z95.0 Presence of cardiac pacemaker; W01.0XXA Fall on same level from slipping, tripping and stumbling without subsequent striking against object, initial encounter
CPT/HCPCS: 73030; 99283

== ENCOUNTER 2020-03-10 16:53 | Emergency (ER) | payer MEDICARE, OTHER ==
[~2020-03-10] VITALS: Ht 172.7 cm; Wt 81.7 kg
--- OUTSIDE RECORDS SUMMARY | ~2020-03-10 | XMS | Encounter Summary ---
Demographics + + + | Address | [address] | | | [place] [address] | + + + | Home Phone | | + + + | Preferred Language | Unknown | + + + | Marital Status | Single | + + + | Cheondoism Affiliation | CAT | + + + | Race | White | + + + | Ethnic Group | Not or | + + + Author + + + | Organization | Unknown | + + + | Address | Unknown | + + + | Phone | Unavailable | + + + Support + + +---------+ + | Name | Relationship | Address | Phone | + + +---------+ + | Elizabeth Damico | ECON | Unknown | | + + +---------+ + Care Team Providers + +------+ + | Care Soft Mud Molder Name | Role | Phone | + +------+ + PCP | Unavailable | + +------+ + Encounter Details +--------+ + + + + | Date | Type | Department | Care Team | Description | +--------+ + + + + | 11/27/ | Results | | [facility] | | | 2003 | Only | | | | +--------+ + + + + Social History + +-------+ +--------+------+ | Tobacco Use | Types | Packs/Day | Years | Date | | | | | Used | | + +-------+ +--------+------+ | Never Assessed | | | | | + +-------+ +--------+------+ + + + | Sex Assigned at | Date Recorded | | | | + + + | Not on file | | + + + + + + + | Job Start Date | Occupation | Industry | + + + + | Not on file | Not on file | Not on file | + + + + + + + + | Travel History | Travel Start | Travel End | + + + + + + | No recent travel history available. | + + documented as of this encounter Plan of Treatment Not on filedocumented as of this encounter Procedures + +--------+ + + + | Procedure Name | Priori | Date/Time | Associated Diagnosis | Comments | | | ty | | | | + +--------+ + + + | X-RAY CHEST 1 VIEW | Urgent | 11/27/2003 | | Results for this | | | | 12:09 PM | | procedure are in the | | | | PST | | results section. | + +--------+ + + + documented in this encounter Results CHEST 1 VIEW (11/27/2003 12:09 PM PST) + + + + + + | Component | Value | Ref Range | Performed | Pathologist | | | | | At | Signature | + + + + + + | CHEST, 1 | Radiologist 1: | | | | | VIEW | RONY COYLE, | | | | | | M.D.CHEST RADIOGRAPH: | | | | | | 11/27/2003 Dictated | | | | | | 11/28/2003 COMPARISON: | | | | | | 11/25/2003. FINDINGS: | | | | | | A left sided PICC | | | | | | line has been introduced | | | | | | with its | | | | | | tipapproximately 4.9 cm | | | | | | below the cavoatrial | | | | | | junction. No | | | | | | pneumothoraxis noted. | | | | | | Minimal basilar | | | | | | atelectasis is | | | | | | identified. | | | | | | Thecardiomediastinal | | | | | | silhouette is unchanged. | | | | | | IMPRESSION: 1. Left | | | | | | sided PICC line with its | | | | | | tip 4.9 cm below the | | | | | | cavoatrialjunction. No | | | | | | pneumothorax. 2. | | | | | | Minimal bibasilar | | | | | | atelectasis. END OF | | | | | | IMPRESSION: | | | | + + + + + + + + | Specimen | + + | | + + + +---------+ + + | Performing | Address | City/State/Zipcode | Phone Number | | Organization | | | | + +---------+ + + | [facility] DEPARTMENT OF | | | | | RADIOLOGY | | | | + +---------+ + + documented in this encounter Visit Diagnoses Not on filedocumented in this encounter"
--- OUTSIDE RECORDS SUMMARY | ~2020-03-10 | XMS | Encounter Summary ---
Demographics + + + | Address | [address] | | | [place] [address] | + + + | Home Phone | | + + + | Preferred Language | Unknown | + + + | Marital Status | Single | + + + | Taoist Affiliation | CAT | + + + | Race | White | + + + | Ethnic Group | Not or | + + + Author + + + | Author | [facility] | + + + | Organization | [facility] | + + + | Address | Unknown | + + + | Phone | Unavailable | + + + Support + + +---------+ + | Name | Relationship | Address | Phone | + + +---------+ + | Elizabeth Damico | ECON | Unknown | | + + +---------+ + Care Team Providers + +------+ + | Care Computer Systems Auditor Name | Role | Phone | + +------+ + PCP | Unavailable | + +------+ + Encounter Details +--------+ + + + + | Date | Type | Department | Care Team | Description | +--------+ + + + + | 05/23/ | Results | NON[facility] | Wayne Higginbothma, | | | 2010 | Only | Department | [facility] | | | | | | CLINIC DERMATOLOGY | | | | | | [address] | | | | | | [place] | | | | | | [address] | | | | | | | | +--------+ + + [...] | + +--------+ + + + | DERMATOPATHOLOGY(WET | Routin | 05/23/2011 | | Results for this | | [facility]) | e | | | procedure are in the | | | | | | results section. | + +--------+ + + + documented in this encounter Results DERMATOPATHOLOGY(WET [facility]) (05/23/2011) + + + + + + | Component | Value | Ref Range | Performed | Pathologist | | | | | At | Signature | + + + + + + | DERMATOPATH | SOURCE OF SPECIMEN:A | | [facility] | | | OLOGY(WET | FIRST TISSUE LEVEL IV | | DERMATOPATH | | | MNT) | [address] CLINICAL | | OLOGY | | | | DESCRIPTION:Shave, | | | | | | scalp; continued pigment | | | | | | change in pigmented | | | | | | patch; previously bx.on | | | | | | solar lentigo. | | | | | | GROSS DESCRIPTION:Scalp. | | | | | | The specimen is | | | | | | received in formalin, | | | | | | labeled scalp with | | | | | | thepatient's name, and | | | | | | consists of a garcia and | | | | | | brown shave biopsy, | | | | | | measuring 1.1x 1.0 cm, | | | | | | which is inked, | | | | | | sectioned into four | | | | | | segments and | | | | | | entirelysubmitted in one | | | | | | cassette. | | | | | | MICROSCOPIC | | | | | | DESCRIPTION:There are | | | | | | foci of full thickness | | | | | | keratinocyte atypia. | | | | | | In other | | | | | | sections,there is a | | | | | | moderately broad, | | | | | | somewhat asymmetric, | | | | | | subtle, | | | | | | junctionalmelanocytic | | | | | | proliferation composed | | | | | | of occasional nests of | | | | | | varying size andan | | | | | | increase in single | | | | | | melanocytes distributed | | | | | | irregularly along and | | | | | | focallyabove the basal | | | | | | layer, including the | | | | | | upper spinous and | | | | | | granular layers.Most of | | | | | | the melanocytic nuclei | | | | | | are moderately large, | | | | | | some arehyperchromatic | | | | | | and pleomorphic, and | | | | | | most of the cells | | | | | | contain pale | | | | | | stainingcytoplasm with | | | | | | melanin. There is a | | | | | | moderately dense, | | | | | | lymphocyticinfiltrate in | | | | | | the papillary dermis | | | | | | where there is abundant | | | | | | solar elastosis. 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 The melanoma | | | | | | in situ extends tothe | | | | | | peripheral margins and | | | | | | for these reasons, | | | | | | additional treatment of | | | | | | it toensure complete | | | | | | removal would be | | | | | | prudent. | | | | | | KPW:mm05/25/11 This | | | | | | case also reviewed with | | | | | | Dr. Mata Lu, | | | | | | Jr. Tia electronic | | | | | | signature indicates that | | | | | | I have personally | | | | | | reviewed alldiagnostic | | | | | | slides, the gross and/or | | | | | | microscopic portion of | | | | | | thisreport and | | | | | | formulated the final | | | | | | diagnosis. | | | | | | Rendering Diagnostician: | | | | | | Jason Lu | | | | | | Trui | | | | | | natalie Signed 05/30/2011 | | | | | | 9:56AM | | | | + + + + + + + + | Specimen | + + | | + + + + + + + | Performing | Address | City/State/Zipcode | Phone Number | | Organization | | | | + + + + + | [facility] | [address] | [place] [address] | | | DERMATENEDINA | [address]ion [address]ui | | | + + + + + documented in this encounter Visit Diagnoses Not on filedocumented in this encounter
--- OUTSIDE RECORDS SUMMARY | ~2020-03-10 | XMS | Encounter Summary ---
Demographics + + + | Address | [address] | | | [place] [address] | + + + | Home Phone | | + + + | Preferred Language | Unknown | + + + | Marital Status | | + + + | Quaker Affiliation | 1041 | + + + | Race | Unknown | + + + | Ethnic Group | Unknown | + + + Author + + + | Author | [facility] | | | and [place] | + + + | Organization | [facility] | | | and [place] | + + + | Address | Unknown | + + + | Phone | Unavailable | + + + Support + + + + + | Name | Relationship | Address | Phone | + + + + + | Jadyn F Damico | ECON | [address] | | | | | [place] | | | | | [address] | | + + + + + | Scot Damico | ECON | [address] | | | | | [place] [address] | | + + + + + Care Team Providers + +------+ + | Care Bleach Packer Name | Role | Phone | + +------+ + PCP | Unavailable | + +------+ + Encounter Details +--------+ + + + + | Date | Type | Department | Care Team | Description | +--------+ + + + + | 07/07/ | Hospital | [facility] | Mio Hughes, | | | 2011 - | Encounter | MED CTR XRAY [address] | MD [address] | | | | | [place] | [address] [place], [place] | | | 07/09/ | | [place] [address] | [phone] | | | 2011 | | [phone] | | | +--------+ + + + [...] as of this encounter Plan of Treatment +--------+---------+ + + + | Date | Type | Specialty | Care Team | Description | +--------+---------+ + + + | 05/02/ | Office | Neurology | AnastasiyaEvin jeffmichaelalena, | | | 2019 | Visit | | MD Gabriel [address] | | | | | | [address] | | | | | | [place] [address] | | | | | | [phone] | | | | | | | | +--------+---------+ + + + documented as of this encounter Procedures + +--------+ + + + | Procedure Name | Priori | Date/Time | Associated Diagnosis | Comments | | | ty | | | | + +--------+ + + + | ECHO COMPLETE | Routin | 07/08/2012 | | Results for this | | | e | 11:28 AM | | procedure are in the | | | | PDT | | results section. | + +--------+ + + + documented in this encounter Results ECHO Complete (07/08/2012 11:28 AM PDT) + + | Specimen | + + | | + + + + + | Narrative | Performed At | + + + | [facility] | [place] | | Department [address] [facility] | [facility] | | [ rep [phone]] [ rep [facility] | | st zip] Signed | - IMAGING | | | | | Patient Name: IRAIDA DAMICO Physician: | | | : 1935 Age: 77 Sex: M Unit #: [id number] | | | Exam Date: 07/07/12 Location: [facility] [place] | | | Report #: [id number] Page: | | | %(RAD)RES..mtdd.print.filter("pg") of %(RAD) | | | RES..mtdd.print.filter("tpg") | | | | | | Accession Number: [id number] | | | E C H O C A R D I O G R A P H Y R E P O R T | | | HEIGHT: 5'10" WEIGHT: 185# | | | CREPE SOLE WIRE BRUSHER: [place] REFERRING DR: WILLIAM MARTINEZ DR: | | | TONIOOOD DIAGNOSIS: | | | | | | M E A S U R E M E N T S | | | Aortic Root: 36 mm LV | | | Diameter-diastole: 61 mm Aortic Cusp Sep: 19 mm | | | LV Diameter--systole: 39 mm LA: | | | 38 mm Fractional Shortenin % | | | IVS--diastole: 11 mm PFV Aortic Valve: | | | IVS--systole: 16 mm MPG Mitral | | | Valve: mmHg LVPW--diastole: 11 mm | | | PFV TR Jet: 2.0 m/s LVPW--systole: | | | 18 mm RA/RV PP.3 mmHg | | | | | | | | | ECHOCARDIOGRAM REPORT: 07/07/2012 REFERRING: | | | Dr. Hughes CLINICAL HISTORY: AORTIC STENOSIS. | | | TECHNICAL: The quality of study is adequate. This is a complete | | | transthoracic aortic echocardiogram including 2D, M-mode, Doppler | | | and color flow Doppler analysis. HEMODYNAMICS: The patient | | | is in underlying sinus rhythm throughout the procedure with | | | ventricular rate in the 70s. RESULTS: CHAMBERS: The | | | left ventricle appears at the upper limit of normal in size with wall | | | thickness also at the upper limit of normal in size. Systolic | | | function appears preserved. LVEF is calculated at 52% by the biplane | | | method and 62% by the four-chamber method and visually appears in the | | | range of 55-60%. Bilateral atria are at the upper limit of normal | | | in size. Right ventricle is of normal size and systolic function | | | with normal wall thickness. VALVES: Aortic valve is a | | | sclerotic trileaflet valve with adequate opening. There is no | | | significant stenosis with moderate insufficiency noted with a | | | pressure half-time of 354 msec. Mitral valve is mildly thickened | | | with adequate opening and mild regurgitation. Tricuspid valve shows | | | mild regurgitation with peak velocity of 2.0 m/s consistent with | | | normal right-sided pressures. Pulmonic valve is normal. | | | MISCELLANEOUS: Aortic root measures 36 mm. Pericardium is normal | | | without evidence of pericardial effusion. IVC is normal. | | | DIASTOLOGY: Mitral inflow diastolic parameters are equivocal. | | | IMPRESSION: 1. LEFT VENTRICULAR SIZE AND WALL THICKNESS AT | | | THE UPPER LIMIT OF NORMAL WITH PRESERVED SYSTOLIC FUNCTION AND LVEF | | | IN THE RANGE OF 55-60%. 2. AORTIC VALVE AORTIC SCLEROSIS | | | WITHOUT ANY SIGNIFICANT STENOSIS AND WITH MODERATE INSUFFICIENCY. | | | 3. MILD MITRAL AND TRICUSPID REGURGITATION. 4. | | | NORMAL RIGHT-SIDED SYSTOLIC PRESSURES. 5. COMPARED WITH | | | THE PATIENT'S PRIOR STUDY OF 2007, NO SIGNIFICANT CHANGES ARE NOTED. | | | Dictated Date/Time: 07/08/2012 11:28 Transcribed | | | Date/Time: 07/08/2012 11:44 Hearing Impaired Teacher: | | | <<Signature on File>> | | | S | | | Yordy Adair MD07/08/12 1447 <Electronically signed by Silvia Vega. | | | Mana CHAMBERLAIN> S Yordy Adair MD 07/08/12 1128 | | | Hearing Impaired Teacher: [facility] Hkmabvrwldgmw28/02/12 1144 | | | Mio Hughes MD | | + + + + + + + + | Performing | Address | City/State/Zipcode | Phone Number | | Organization | | | | + + + + + | [facility] | [address] | [place] | [phone] | | [facility] | | [address] | | | - IMAGING | | | | + + + + + documented in this encounter Visit Diagnoses Not on filedocumented in this encounter
--- OUTSIDE RECORDS SUMMARY | ~2020-03-10 | XMS | Encounter Summary ---
Demographics + + + | Address | [address] | | | [place] [address] | + + + | Home Phone | | + + + | Preferred Language | Unknown | + + + | Marital Status | | + + + | Gnosticism Affiliation | 1041 | + + + | Race | Unknown | + + + | Ethnic Group | Unknown | + + + Author + + + | Author | [facility] | | | and [place] | + + + | Organization | [facility] | | | and [...] [place] | | | | | [address] | | + + + + + | Scot Damico | ECON | [address] | | | | | [place] [address] | | + + + + + Care Team Providers + +------+ + | Care Sanitarian Name | Role | Phone | + +------+ + | Ralph Chatman MD | PCP | | + +------+ + Encounter Details +--------+ + + + + | Date | Type | Department | Care Team | Description | +--------+ + + + + | 08/21/ | Emergency | [facility] | Olaf Cook DO | Elevated blood | | 2016 - | | [facility] | [address] | pressure; Skin tear | | | | [facility] [place] | [place], [place] | of forearm without | | 08/22/ | | [address] | [address] | complication, left, | | 2016 | | [place] | [phone] | initial encounter | | | | [address] | | | | | | [phone] | | | +--------+ + + + + Social History + + + +--------+ + | Tobacco Use | Types | Packs/Day | Years | Date | | | | | Used | | + + + +--------+ + | Former Smoker | Cigarettes | 0.5 | 1 | Quit: 10/07/1957 | + + + +--------+ + + +---+---+---+ | Smokeless Tobacco: | | | | | Never Used | | | | + +---+---+---+ + + +---------+ + | Alcohol Use | Drinks/Week | oz/Week | Comments | + + +---------+ + | Yes | 2-3 Glasses of | 0.0 | | | | wine | | | + + +---------+ + + + + | Sex Assigned at [...] + + documented as of this encounter Functional Status + + + + | Functional Status | Response | Date of Assessment | + + + + | Are you deaf or do you have serious | No | 01/20/2016 | | difficulty hearing? | | | + + + + | Are you blind or do you have serious | No | 01/20/2016 | | difficulty seeing, even when wearing | | | | glasses? | | | + + + + | Do you have serious difficulty walking or | No | 01/20/2016 | | climbing stairs? (5 years old or older) | | | + + + + | Do you have difficulty dressing or bathing? | No | 01/20/2016 | | (5 years old or older) | | | + + + + | Because of a physical, mental, or emotional | No | 01/20/2016 | | condition, do you have difficulty doing | | | | errands alone such as visiting a doctor's | | | | office or shopping? [15 years old or | | | | older)] | | | + + + + + + + + | Cognitive Status | Response | Date of Assessment | + + + + | Because of a physical, mental, or emotional | No | 01/20/2016 | | condition, do you have serious difficulty | | | | concentrating, remembering, or making | | | | decisions? (5 years old or older) | | | + + + + documented as of this encounter Medications at Time of Discharge + + + +---------+ + + | Medication | Sig | Dispensed | Refills | Start | End Date | | | | | | Date | | + + + +---------+ + + | albuterol 90 | Inhale 2 puffs into | | 0 | | | | mcg/puff inhaler | the lungs every 6 | | | | | | | hours as needed for | | | | | | | Wheezing. | | | | | + + + +---------+ + + | amLODIPine | Take 5 mg by mouth | | 0 | | | | (NORVASC) 5 mg | Daily. | | | | | | tablet | | | | | | + + + +---------+ + + | ascorbic acid | Take 500 mg by mouth | | 0 | | | | (VITAMIN C) 500 mg | Daily. | | | | | | tablet | | | | | | + + + +---------+ + + | aspirin 325 mg | Take 325 mg by mouth | | 0 | | | | tablet | Daily. | | | | | + + + +---------+ + + | | Take 1 tablet by | | 0 | | | | Aspirin-Acetaminophe | mouth as needed. | | | | | | n-Caffeine (EXCEDRIN | | | | | | | MIGRAINE PO) | | | | | | + + + +---------+ + + | Cholecalciferol | Take 2,000 Units by | | 0 | | | | (VITAMIN D3) 2000 | mouth Daily. | | | | | | UNITS CAPS | | | | | | + + + +---------+ + + | doxycycline | Take 1 capsule by | 14 | 0 | 04/15/20 | | | (VIBRAMYCIN) 100 mg | mouth 2 times daily. | capsule | | 16 | | | capsule | | | | | | + + + +---------+ + + | | Take 1 tablet by | 20 | 0 | 04/15/20 | | | HYDROcodone-acetamin | mouth every 6 hours | tablet | | 16 | | | ophen (NORCO) 5-325 | as needed for Pain. | | | | | | mg per tablet | | | | | | + + + +---------+ + + | loperamide ([facility] | Take 2 mg by mouth | | 0 | | | | ANTI-DIARRHEAL) 2 MG | Daily. | | | | | | tablet | | | | | | + + + +---------+ + + | omeprazole | Take 20 mg by mouth | | 0 | | | | (PRILOSEC) 20 mg | Daily as needed. | | | | | | capsule | | | | | | + + + +---------+ + + | pseudoePHEDrine | Take 30 mg by mouth | | 0 | | | | (SUDAFED) 30 mg | every 4 hours as | | | | | | tablet | needed for | | | | | | | Congestion. | | | | | + + + +---------+ + + | Respiratory | Res Med S9 auto CPAP | 1 each | 99 | 01/07/20 | | | Therapy Supplies | 9 cm H2O. Heater | | | 15 | | | MISCIndications: | and Humidifier. All | | | | | | Essential | necessary supplies. | | | | | | hypertension, PANCHITO | AHI 7.6, 60.5 in | | | | | | (obstructive sleep | supine. Diagnosis | | | | | | apnea) | Code(s)327.23. | | | | | | | Length of Need 99 | | | | | | | months. Please send | | | | | | | order to [facility] | | | | | | | [facility]. | | | | | + + + +---------+ + + documented as of this encounter Plan of Treatment +--------+---------+ + + + | Date | Type | Specialty | Care Team | Description | +--------+---------+ + + + | 05/02/ | Office | Neurology | Dada Goodwin, | | | 2019 | Visit | | MD Gabriel [address] | | | | | | [address] | | | | | | [place] [address] | | | | | | [phone] | | | | | | | | +--------+---------+ + + + documented as of this encounter Procedures + +--------+ + + + | Procedure Name | Priori | Date/Time | Associated Diagnosis | Comments | | | ty | | | | + +--------+ + + + | XR FOREARM LEFT 2 VW | Routin | 08/21/2016 | | Results for this | | | e | 10:59 PM | | procedure are in the | | | | PST | | results section. | + +--------+ + + + documented in this encounter Results XR Forearm Left 2 Vw (08/21/2016 10:59 PM PST) + + | Specimen | + + | | + + + + + | Impressions | Performed At | + + + | 1. No evidence of fracture. 2. Laceration and soft tissue | | | swelling seen in the mid forearm along the radial aspect consistent | | | with the site of injury. | | + + + + + + | Narrative | Performed At | + + + | IRAIDA DAMICO XR FOREARM LEFT 08/21/2016 10:59 PM HISTORY: 81 | | | years. Male. Cardiac valve on left mid forearm resulting in | | | laceration and bruising. Assess for fracture or foreign body. | | | TECHNIQUE: XR FOREARM LEFT. 2 view(s) obtained. COMPARISON: | | | None FINDINGS: The regional osseous structures demonstrate normal | | | mineralization and trabeculation. No fracture, dislocation or | | | subluxation is noted. The joint spaces appear normal. Mild soft | | | tissue swelling and laceration is seen in the mid forearm along the | | | radial aspect and dorsal aspect consistent with the site of injury. | | | No radiopaque foreign bodies are noted. No soft tissue calcifications | | | are present. | | + + + + + | Procedure Note | + + | [facility] Recinos Conversion - 05/21/2019 2:21 PM PDT IRAIDA DAMICOXR FOREARM LEFT08/21/2016 | | 10:59 PM HISTORY:81 years. Male. Cardiac valve on left mid forearm resulting in | | laceration and bruising. Assess for fracture or foreign body. TECHNIQUE:XR FOREARM | | LEFT. 2 view(s) obtained. COMPARISON:None FINDINGS:The regional osseous structures | | demonstrate normal mineralization and trabeculation.No fracture, dislocation or | | subluxation is noted.The joint spaces appear normal.Mild soft tissue swelling and | | laceration is seen in the mid forearm along the radial aspect and dorsal aspect | | consistent with the site of injury.No radiopaque foreign bodies are noted.No soft tissue | | calcifications are present. IMPRESSION: 1. No evidence of fracture.2. Laceration and | | soft tissue swelling seen in the mid forearm along the radial aspect consistent with the | | site of injury. | |None | | | |FINDINGS: | |The regional osseous structures demonstrate normal mineralization and trabeculation. | |No fracture, dislocation or subluxation is noted. | |The joint spaces appear normal. | |Mild soft tissue swelling and laceration is seen in the mid forearm along the radial aspect and dorsal aspect consistent with the site of injury. | |No radiopaque foreign bodies are noted. | |No soft tissue calcifications are present. | | | |IMPRESSION: | |1. No evidence of fracture. | |2. Laceration and soft tissue swelling seen in the mid forearm along the radial aspect con sistent with the site of injury. | | | | | + + documented in this encounter Visit Diagnoses + + | Diagnosis | + + | Elevated blood pressure Elevated blood pressure reading without diagnosis of | | hypertension | + + | Skin tear of forearm without complication, left, initial encounter | + + documented in this encounter"
--- OUTSIDE RECORDS SUMMARY | ~2020-03-10 | XMS | Encounter Summary ---
Demographics + + + | Address | [address] | | | [place] [address] | + + + | Home Phone | | + + + | Preferred Language | Unknown | + + + | Marital Status | Single | + + + | Rastafari Affiliation | CAT | + + + [...] Team Providers + +------+ + | Care Curatorial Assistant Name | Role | Phone | + +------+ + PCP | Unavailable | + +------+ + Encounter Details +--------+ + + + + | Date | Type | Department | Care Team | Description | +--------+ + + + + | 11/25/ | Procedure - | | Documentation, | OP REPORT-TEACHING | | 2004 | | | Teaching Physician | | | | Transcribed | | | | +--------+ + + [...] | + +--------+ + + + | TEACHING PHYSICIAN | | 11/25/2003 | | | + +--------+ + + + documented in this encounter Visit Diagnoses Not on filedocumented in this encounter"
--- OUTSIDE RECORDS SUMMARY | ~2020-03-10 | XMS | Encounter Summary ---
Demographics + + + | Address | [address] | | | [place] [address] | + + + | Home Phone | | + + + | Preferred Language | Unknown | + + + | Marital Status | | + + + | Muslim Affiliation | 1041 | + + + | Race | Unknown | + + + | Ethnic Group | Unknown | + + + Author + + + | Author | [facility] | | | and [place] | + + + | Organization | [facility] | | | [...] [place] | | | | | [address] | | + + + + + | Scot Damico | ECON | [address] | | | | | [place] [address] | | + + + + + Care Team Providers + +------+ + | Care Shoe Cleaner Name | Role | Phone | + +------+ + | Ralph Chatman MD | PCP | | + +------+ + Reason for Visit +--------+ + | Reason | Comments | +--------+ + | COPD | | +--------+ + | Apnea | | +--------+ + Encounter Details +--------+---------+ + + + | Date | Type | Department | Care Team | Description | +--------+---------+ + + + | 01/06/ | Office | [facility] | [place], | PANCHITO (obstructive | | 2014 | Visit | PULMONARY [address] | Irina Sofia MD | sleep apnea); | | | | [place], | | Essential | | | | [place] [address] | | hypertension; COPD | | | | [phone] | | (chronic obstructive | | | | | | pulmonary disease) | | | | | | (HCC) | +--------+---------+ + + + Social History [...] + + + | Blood Pressure | 122/76 | 01/06/2015 2:13 PM | | | | | PDT | | + + + + + | Pulse | 63 | 01/06/2015 2:13 PM | | | | | PDT | | + + + + + | Temperature | - | - | | + + + + + | Respiratory Rate | 16 | 01/06/2015 2:13 PM | | | | | PDT | | + + + + + | Oxygen Saturation | 98% | 01/06/2015 2:13 PM | | | | | PDT | | + + + + + | Inhaled Oxygen | - | - | | | Concentration | | | | + + + + + | Weight | 86.2 kg (190 lb) | 01/06/2015 2:13 PM | | | | | PDT | | + + + + + | Height | 170.2 cm (5' 7") | 01/06/2015 2:13 PM | | | | | PDT | | + + + + + | Body Mass Index | 29.76 | 01/06/2015 2:13 PM | | | | | PDT | | + + + + + documented in this encounter Patient Instructions Patient Instructions Irina Norton MD - 01/06/2015 2:58 PM KAYLAN would recommend s tarting on an CPAP machine. I can order this and you can pick this up at [facility]. I would call the [facility] company to make an appointment to pick it up so they can show you how to use it. They can also fit you to a mask. I will then see you back in about 2 weeks w ith a download from the machine. To get the download, you will take the machine or the chip from the back of the machine in to the home health company and they can download information from the machine to bring in. The insurance requires that you use the machine for 4 hours or more a night 70% of the nigh ts in a 30 day time period within the first 90 days and that you be seen at [address] starting on CPAP to keep the machine. Stop the Spiriva, and start Symbicort 160 mcg 2 puffs inhaled twice daily. Rinse your mouth out after using. I want you to give some consideration to some other physical activity where you do not sit down, such as walking, Nu Step, where you are upright and carrying more of your weight, and also some light weight lifting. Electronically signed by Irina Norton MD at 015 3:05 PM PDT documented in this encounter Progress Notes Irina Norton MD - 01/06/2015 2:39 PM PDTFormatting of this note might be differe nt from the original. Pulmonary Follow Up HPI Iraidagarrison Damico is a 79 y.o. male patient of Ralph Chatman here today for follo w up of COPD and PANCHITO. At their last visit, we had referred him for a PAP titration and continued him on Spiriva. He had a PAP titration on December 07, 2014. He notes that the second sleep study went fine. He notes that wearing the mask was not the most comfortable thing. He thinks he slept pretty w ell in spite of it. He did not wake up feeling more rested than usual. He fell asleep within 8 minutes and slept 8 hours and 2 minutes. His marilee desaturation was 92%. He is currently on a regimen of Spiriva once daily. He finished his second's month supply a few days ago, and then stopped it. He does not feel like it had made his breathing any bett er. His also does not see much difference between using it and not using it. He does n ot use the albuterol at all. He returns today for routine follow up. He is exercising regularly. He exercises for an hour and a half to 2 hours, and he does no t feel short of breath then. He is usually exercising in a seated position when he exercises . He gets short of breath when he goes up and down stairs, carries heavier objects, and doin g yard work. His thinks a lot of that is resting his back. 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 Ceballos Knee arthroscopy 2003 Right Total knee arthroplasty 2006 Right Skin cancer excision 2009, 2010 Cardiac catherization 07/06/2013 EF 60-65% and normal coronaries Transesophageal echocardiogram 03/30/2014 Laterality: N/A; Surgeon: Theo Garza MD; Location: [facility] Social History: History Social History Marital [...] Narrative Lives: [place] With: his Grew up: [facility] Has previously lived in: [place], [place], born in [place] Exposure to toxic chemicals: possibly as a [...] Cough Medications: Outpatient Encounter Prescriptions as of 01/06/2015 Medication Sig Dispense Refill acetaminophen (TYLENOL) 500 [...] PO) Take 100 mg by mouth Daily. Cholecalciferol (VITAMIN D3) 2000 UNITS CAPS Take [...] by mouth every morning (before breakfast ). tiotropium (SPIRIVA HANDIHALER) 18 mcg inhalation capsule Inhale 1 capsule into the sydnie gs Daily. 30 capsule 11 No facility-administered encounter medications on file as of 01/06/2015. Objective BP 122/76 | Pulse 63 | Resp 16 | Ht 1.702 m (5' 7") | Wt 86.183 kg (190 lb) | BMI 29.7 5 kg/m2 | SpO2 98% General Appearance: Alert, cooperative, no distress, appears stated age Head: Normocephalic, without obvious abnormality, atraumatic Eyes: PERRL, conjunctiva clear, no scleral icterus, EOM's intact Ears: Normal TM's, external auditory canals, normal acuity Nose: Nares normal, septum midline, mucosa normal Mouth: No oral lesions or exudate Neck: Supple, symmetrical, no adenopathy Lungs: No accessory muscle use, breath sounds are somewhat diminished bilaterally with so me prolongation of the expiratory phase, no wheezes, crackles or rhonchi Chest Wall: No deformity Heart: Regular rate and rhythm, no murmur, rub or gallop Abdomen: Soft, non-tender, non-distended, mildly obese Extremities: No cyanosis, clubbing, trace bilateral lower extremity edema Pulses: Radial pulses 2+ and symmetric Skin: Warm and dry Lymph nodes: Cervical and supraclavicular nodes normal Data: PAP titration was done on December 06, 2014 and was reviewed in clinic today. He was titrated t o a CPAP of 9 cm H2O, and on this pressure, he had an AHI of 1.8 overall, and 4.7 supine. He had no evidence of limb movements on CPAP. Immunization History Administered Date(s) Administered INFLUENZA, >= 4YO W/PRESERVATIVE IM 07/07/2013 INFLUENZA, TRIVALENT PRESERVATIVE FREE (PED/ADOL/ADULT) 06/21/2014 ZOSTER, 1 DOSE (ADULT) 07/07/2012 Assessment 1. PANCHITO (obstructive sleep apnea) - This is mild, but severe in supine position. He also has complicating essential hypertension and known cardiac disease. I feel he warrants treatment with PAP therapy. It may also help his general sense of well being, given that he continues to feel as if he is not doing as well as he could be. He was agreeable to trying this. 3. COPD (chronic obstructive pulmonary disease) (HCC) - This is mild. He is no longer on Sp iriva, having self discontinued this due to perceived lack of benefit. I have suggested tryi ng Symbicort instead. I suspect some of his issues are due to the fact that he is short of b reath mostly with higher weight load activities, which are more strenuous than his typical a ctivities. I emphasized need to do exercise that involves being upright, and doing some ligh t weight lifting. Overall, his functional status is very good and has improved significantly since he started being seen. Plan 1.Start CPAP 9 cm H2O. 2.Check download in about 4 weeks from now. 3.Advised against driving when drowsy. 4. Stop Spiriva. 5. Start Symbicort 160 mcg 2 puffs inhaled twice daily. 6. Do exercise that involves being upright, and some light weight lifting. He was advised to call if new pulmonary symptoms were to develop. 35 minutes were spent with Mr. Damico and his with greater than 50% spent in counseling and coordination of care regarding. Return to clinic in 4 weeks with a download, or sooner with concerns. CC: Ralph Chatman Portions of this report were transcribed using voice recognition software. Every effort wa s made to ensure accuracy; however, inadvertent computerized etcher electrolytic errors may be pre sent. documented in t his encounter Plan of Treatment +--------+---------+ + + + | Date | Type | Specialty | Care Team | Description | +--------+---------+ + + + | 05/02/ | Office | Neurology | Dada Goodwin, | | | 2019 | Visit | | MD Gabriel SELLERS | | | | | | [facility] | | | | | | [place] [address] | | | | | | [phone] | | | | | | | | +--------+---------+ + + + documented as of this encounter Visit Diagnoses + + | Diagnosis | + + | PANCHITO (obstructive sleep apnea) Obstructive sleep apnea (adult) (pediatric) | + + | Essential hypertension Unspecified essential hypertension | + + | COPD (chronic obstructive pulmonary disease) (HCC) Chronic airway obstruction, not | | elsewhere classified | + + documented in this encounter
--- OUTSIDE RECORDS SUMMARY | ~2020-03-10 | XMS | Encounter Summary ---
Demographics + + + | Address | [address] | | | [place] [address] | + + + | Home Phone | | + + + | Preferred Language | Unknown | + + + | Marital Status | | + + + | Mosque Affiliation | 1041 | + + + | Race | Unknown | + + + | Ethnic Group | Unknown | + + + Author + + + | Author | [facility] | | | and [place] | + + + | Organization | [facility] | | | and [place] | + + + | Address | Unknown | + + + | Phone | Unavailable | + + + Support + + + + + | Name | Relationship | Address | Phone | + + + + + | Jadyngiselle Damico | ECON | [address] | | | | | [place] | | | | | [address] | | + + + + + | Scot Damico | ECON | [address] | | | | | [place] [address] | | + + + + + Care Team Providers + +------+ + | Care Steel Checker Name | Role | Phone | + [...] Closed | | Radiology | Diagnoses | Theo Horan | | | | | | Aortic | MD Efrain | | | | | | valve | [address] | | | | | | disorders | [place] | | | | | | Procedures | [id number] | | | | | | ECHO | Phone: | | | | | | Transesophag | [phone] | | | | | | eal (FLORENTIN) | | | +--------+--------+ + + + + Encounter Details +--------+ + + + + | Date | Type | Department | Care Team | Description | +--------+ + + + + | 03/30/ | Hospital | [facility] | Theo Horan MD | Aortic valve | | 2014 | Encounter | [facility] | [address] [place] [address], | disorders | | | | ADMIT AND RECOVERY | [place] [address] | | | | | [address] | [phone] | | | | | [place] | | | | | | [address] | | | | | | [phone] | | | +--------+ + + + [...] + + +---------+ + | Yes | 2 Standard drinks | 1.7 | | | | or equivalent | | | + + +---------+ + [...] + + + | Blood Pressure | 135/65 | 03/30/2014 1:20 PM | | | | | PDT | | + + + + + | Pulse | 59 | 03/30/2014 1:20 PM | | | | | PDT | | + + + + + | Temperature | 36.5 C (97.7 F) | 03/30/2014 10:55 AM | | | | | PDT | | + + + + + | Respiratory Rate | 18 | 03/30/2014 10:55 AM | | | | | PDT | | + + + + + | Oxygen Saturation | 95% | 03/30/2014 12:50 PM | | | | | PDT | | + + + + + | Inhaled Oxygen | - | - | | | Concentration | | | | + + + + + | Weight | 84.5 kg (186 lb 4.6 | 03/30/2014 10:56 AM | | | | oz) | PDT | | + + + + + | Height | 171.5 cm (5' 7.5") | 03/30/2014 10:56 AM | | | | | PDT | | + + + + + | Body Mass Index | 28.75 | 03/30/2014 10:56 AM | | | | | PDT | | + + + + + documented in this encounter Discharge Instructions Instructions Johanna Ward RN - 03/30/2014Formatting of this note might be differe nt from the original. Transesophageal Echocardiography (FLORENTIN) Transesophageal echocardiography (FLORENTIN) is a test that allows your doctor to record images o f your heart from inside your esophagus, or food pipe. These images help your doctor identif y and treat problems such as infection, disease, or defects in your heart s webb or valve s. A probe in your esophagus produces sound waves. After the Test You can eatand drink again when your throat is no longer numb. No alcohol, legal decision making or driving x 24 hours Alternate rest and activity for the next 24 hours You may notice a mild sore throat for the next 24 hours When to Call Your Doctor Call your doctor right away if you have any of the following: Chest pain Pain, swelling, redness or drainage at the IV insertion site Temp of 100F or greater. documented in this encounter Medications at Time of Discharge + + + +---------+--------+ + | Medication | Sig | Dispensed | Refills | Start | End Date | | | | | | Date | | + + + +---------+--------+ + | amLODIPine | Take 5 mg by mouth | | 0 | | | | (NORVASC) 5 mg | Daily. | | | | | | tablet | | | | | | + + + +---------+--------+ + | ascorbic acid | Take 500 mg by mouth | | 0 | | | | (VITAMIN C) 500 mg | Daily. | | | | | | tablet | | | | | | + + + +---------+--------+ + | aspirin 325 mg | Take 325 mg by mouth | | 0 | | | | tablet | Daily. | | | | | + + + +---------+--------+ + | Cholecalciferol | Take 2,000 Units by | | 0 | | | | (VITAMIN D3) 2000 | mouth Daily. | | | | | | UNITS CAPS | | | | | | + + + +---------+--------+ + | loperamide ([facility] | Take 2 mg by mouth | | 0 | | | | ANTI-DIARRHEAL) 2 MG | Daily. | | | | | | tablet | | | | | | + + + +---------+--------+ + | omeprazole | Take 20 mg by mouth | | 0 | | | | (PRILOSEC) 20 mg | Daily as needed. | | | | | | capsule | | | | | | + + + +---------+--------+ + | acetaminophen | Take 500 mg by mouth | | 0 | | | | (TYLENOL) 500 mg | every 6 hours as | | | | 6 | | tablet | needed. | | | | | + + + +---------+--------+ + | B Complex Vitamins | Take 100 mg by mouth | | 0 | | | | (B COMPLEX 100 PO) | Daily. | | | | 6 | + + + +---------+--------+ + | ferrous sulfate | Take 325 mg by mouth | | 0 | | | | 325 mg tablet | daily (with | | | | 4 | | | breakfast). | | | | | + + + +---------+--------+ + | furosemide (LASIX) | Take 40 mg by mouth | | 0 | | | | 40 mg tablet | Daily. | | | | 4 | + + + +---------+--------+ + | losartan (COZAAR) | Take 100 mg by mouth | | 0 | | | | 100 MG tablet | Daily. | | | | 5 | + + + +---------+--------+ + | metoprolol | Take 25 mg by mouth | | 0 | | | | tartrate (LOPRESSOR) | 2 times daily. | | | | 6 | | 25 mg tablet | | | | | | + + + +---------+--------+ + | potassium chloride | Take 20 mEq by mouth | | 0 | | | | (K-DUR) 20 mEq | Daily. | | | | 4 | | tablet | | | | | | + + + +---------+--------+ + documented as of this encounter Progress Notes Johanna Ward RN - 03/30/2014 1:59 PM PDTPatient and fully acknowledge FLORENTIN d ischarge instructions. Patient alert and oriented upon discharge. documented in this encounter Plan of Treatment +--------+---------+ + + + | Date | Type | Specialty | Care Team | Description | +--------+---------+ + + + | 05/02/ | Office | Neurology | Dada Goodwin, | | | 2019 | Visit | | MD [address] | | | | | | [address] | | | | | | [place] [address] | | | | | | [phone] | | | | | | | | +--------+---------+ + + + documented as of this encounter Procedures + +--------+ + + + | Procedure Name | Priori | Date/Time | Associated Diagnosis | Comments | | | ty | | | | + +--------+ + + + | ECHO TRANSESOPHAGEAL | | 03/30/2014 | Aortic valve | | | | | 1:30 PM | disorders | | | | | PDT | | | + +--------+ + + + | ECHO TRANSESOPHAGEAL | Routin | 03/30/2014 | Aortic valve | Results for this | | (FLORENTIN) | e | 1:00 PM | disorders | procedure are in the | | | | PDT | | results section. | + +--------+ + + + documented in this encounter Results ECHO Transesophageal (FLORENTIN) (03/30/2014 1:00 PM PDT) + + | Specimen | + + | | + + + + + | Narrative | Performed At | + + + | | [facility] | | Transesophageal | LAB | | Echo | | | Report Name: IRAIDA DAMICO Date: 03/30/2014 MRN: | | | [id number] Patient Location: [facility] | | | : 1935 Age: 78 yrs | | | Gender: M damion Height: 67.5 in | | | Weight: 186 lb BSA: 2.0 m2 | | | HR: 141 | | | Rhythm: SR History: , s/p AVR (porcine) | | | Reason For Study: Eval AVR INTERPRETATION SUMMARY: A 2D | | | transesophageal echocardiogram with color flow Doppler was performed. | | | A bubble study was performed to evaluate for intracardiac shunting. | | | The left ventricular systolic function is within normal limits. | | | Ejection Fraction = 55-60%. No regional wall motion abnormalities are | | | noted. Left ventricular hypertrophy is noted. The right ventricle | | | is normal in size and function. The atrial septum is aneurysmal. | | | There is no Doppler evidence for an atrial septal defect. Injection | | | of agitated saline documented no interatrial shunt. No atrial | | | thrombus is seen. There is trace mitral regurgitation. There is | | | trace tricuspid regurgitation. No aortic insufficiency is present. | | | There is a porcine aortic valve. The prosthetic aortic valve is | | | well-seated. The prosthetic aortic valve appears to function | | | normally. The aortic root is normal size. There is no pericardial | | | effusion. Procedure Notes: IV conscious sedation was then | | | administered by the chief of staff doctor under my direction. Standard endoscopy | | | support was offered with nasal oxygen, pulse oximetry, BP monitoring, | | | and continuous rhythm strip monitoring. The transesophageal echo | | | probe was placed without difficulty into the esophagus and a 2D/color | | | Doppler FLORENTIN exam was carried out. Left Ventricle: The left | | | ventricle is normal in size. There is no thrombus. Left ventricular | | | hypertrophy is noted. The left ventricular systolic function is | | | within normal limits. Ejection Fraction = 55-60%. No regional wall | | | motion abnormalities are noted. Right Ventricle: The right | | | ventricle is normal in size and function. Atria: The atrial | | | septum is aneurysmal. There is no Doppler evidence for an atrial | | | septal defect. Injection of agitated saline documented no interatrial | | | shunt. No atrial thrombus is seen. Mitral Valve: The mitral | | | valve appears normal in structure and function. There is no evidence | | | of mitral valve prolapse. There is trace mitral regurgitation. | | | Tricuspid Valve: The tricuspid valve leaflets are thin and pliable. | | | The tricuspid valve is grossly normal in appearance. There is trace | | | tricuspid regurgitation. Aortic Valve: No aortic insufficiency is | | | present. There is a porcine aortic valve. The prosthetic aortic | | | valve is well-seated. The prosthetic aortic valve appears to function | | | normally. Pulmonic Valve: The pulmonic valve is grossly normal. | | | There is no pulmonic valvular insufficiency. Vessels: The aortic | | | root is normal size. Visualized portions of the aorta appear grossly | | | normal. The pulmonary artery is grossly normal in appearance. | | | Other: There is no pericardial effusion. The pericardium appears | | | normal. Interpreting Physician: Theo Horan MD electronically | | | signed on 03/30/2014 05:10 PM Ordering Physician: Theo HORAN | | | Lumber Chain Offbearer: Theo Horan MD [id number]: | | + + + + + | Procedure Note | + + | Jorje, Rad Results In - 03/30/2014 5:11 PM PDT | | Transesophageal | | Echo Report | | | | Name: IRAIDA DAMICO Date: 03/30/2014 | | Patient Location: [facility] | | : 1935 Age: 78 yrs Gender: M | | damion | | Height: 67.5 in Weight: 186 lb BSA: 2.0 | | m2 | | HR: 141 Rhythm: SR | | History: , s/p AVR (porcine) | | Reason For Study: Eval AVR | | | | INTERPRETATION SUMMARY: | | A 2D transesophageal echocardiogram with color flow Doppler was performed. | | A bubble study was performed to evaluate for intracardiac shunting. The | | left ventricular systolic function is within normal limits. | | Ejection Fraction = 55-60%. | | No regional wall motion abnormalities are noted. | | Left ventricular hypertrophy is noted. | | The right ventricle is normal in size and function. | | The atrial septum is aneurysmal. | | There is no Doppler evidence for an atrial septal defect. | | Injection of agitated saline documented no interatrial shunt. | | No atrial thrombus is seen. | | There is trace mitral regurgitation. | | There is trace tricuspid regurgitation. | | No aortic insufficiency is present. | | There is a porcine aortic valve. | | The prosthetic aortic valve is well-seated. | | The prosthetic aortic valve appears to function normally. | | The aortic root is normal size. | | There is no pericardial effusion. | | | | Procedure Notes: | | IV conscious sedation was then administered by the chief of staff doctor under my | | direction. Standard endoscopy support was offered with nasal oxygen, pulse | | oximetry, BP monitoring, and continuous rhythm strip monitoring. The | | transesophageal echo probe was placed without difficulty into the | | esophagus and a 2D/color Doppler FLORENTIN exam was carried out. | | | | Left Ventricle: | | The left ventricle is normal in size. There is no thrombus. Left | | ventricular hypertrophy is noted. The left ventricular systolic function | | is within normal limits. Ejection Fraction = 55-60%. No regional wall | | motion abnormalities are noted. | | | | Right Ventricle: | | The right ventricle is normal in size and function. | | | | Atria: | | The atrial septum is aneurysmal. There is no Doppler evidence for an | | atrial septal defect. Injection of agitated saline documented no | | interatrial shunt. No atrial thrombus is seen. | | | | Mitral Valve: | | The mitral valve appears normal in structure and function. There is no | | evidence of mitral valve prolapse. There is trace mitral regurgitation. | | | | Tricuspid Valve: | | The tricuspid valve leaflets are thin and pliable. The tricuspid valve is | | grossly normal in appearance. There is trace tricuspid regurgitation. | | | | Aortic Valve: | | No aortic insufficiency is present. There is a porcine aortic valve. The | | prosthetic aortic valve is well-seated. The prosthetic aortic valve | | appears to function normally. | | | | Pulmonic Valve: | | The pulmonic valve is grossly normal. There is no pulmonic valvular | | insufficiency. | | | | Vessels: | | The aortic root is normal size. Visualized portions of the aorta appear | | grossly normal. The pulmonary artery is grossly normal in appearance. | | | | Other: | | There is no pericardial effusion. The pericardium appears normal. | | | | Interpreting Physician: Thoe Horan MD | | electronically signed on 03/30/2014 05:10 PM | | Ordering Physician: Theo HORAN | | Lumber Chain Offbearer: Theo Horan MD | | [id number]: | + + + +---------+ + + | Performing | Address | City/State/Zipcode | Phone Number | | Organization | | | | + +---------+ + + | [facility] | | | [phone] | + +---------+ + + | [facility] | | | [phone] | + +---------+ + + documented in this encounter Visit Diagnoses + + | Diagnosis | + + | Aortic valve disorders | + + documented in this encounter Administered Medications + +--------+ + +------+------+ | Medication Order | MAR | Action | Dose | Rate | Site | | | Action | Date | | | | + +--------+ + +------+------+ | benzocaine (HURRICAINE) 20% | Given | 03/30/20 | 2 sprays | | | | spray Topical, PRN, Starting Tue | | 14 12:01 | | | | | 03/30/14 at 1201 | | PM PDT | | | | + +--------+ + +------+------+ +---+---+ | | | +---+---+ + +-------+ +--------+---+---+ | fentaNYL injection | Given | 03/30/20 | 25 mcg | | | | Intravenous, PRN, Pain, Starting | | 14 12:04 | | | | | 03/30/14 at 1201, Intra-op | | PM PDT | | | | + +-------+ +--------+---+---+ +-------+ +--------+---+---+ | Given | 03/30/20 | 50 mcg | | | | | 14 12:01 | | | | | | PM PDT | | | | +-------+ +--------+---+---+ +---+---+ | | | +---+---+ + +-------+ +--------+---+---+ | midazolam (VERSED) 1 mg/mL | Given | 03/30/20 | 0.5 mg | | | | injection Intravenous, PRN, | | 14 12:04 | | | | | Sedation, Starting 03/30/14 at | | PM PDT | | | | | 1201 | | | | | | + +-------+ +--------+---+---+ +-------+ +------+---+---+ | Given | 03/30/20 | 2 mg | | | | | 14 12:01 | | | | | | PM PDT | | | | +-------+ +------+---+---+ +---+---+ | | | +---+---+ documented in this encounter
--- OUTSIDE RECORDS SUMMARY | ~2020-03-10 | XMS | Encounter Summary ---
Demographics + + + | Address | [address] | | | [place] [address] | + + + | Home Phone | | + + + | Preferred Language | Unknown | + + + | Marital Status | Single | + + + | Alevism Affiliation | CAT | + + + | Race | White | + + + | Ethnic Group | Not or | + + + Author + + + | Author | [facility] | + + + | Organization | [facility] | + + + | Address | Unknown | + + + | Phone | Unavailable | + + + Support + + +---------+ + | Name | Relationship | Address | Phone | + + +---------+ + | Elizabeth Damico | ECON | Unknown | | + + +---------+ + Care Team Providers + +------+ + | Care Digital Specialist Name | Role | Phone | + +------+ + PCP | Unavailable | + +------+ + Encounter Details +--------+ + + + + | Date | Type | Department | Care Team | Description | +--------+ + + + + | / | Results | Registration [id number] | [address] | | | 2007 | Only | [address] | [phone] | | | | | Rd Mailcode: [id number] | | | | | | [place], [place] | | | | | | [address] | | | | | | [phone] | | | +--------+ + + + [...] + + | DERMATOPATHOLOGY(WET | Routin | 12/05/2007 | | Results for this | | [facility]) | e | | | procedure are in the | | | | | | results section. | + +--------+ + + + documented in this encounter Results DERMATOPATHOLOGY(WET [facility]) (12/05/2007) + + + + + + | Component | Value | Ref Range | Performed | Pathologist | | | | | At | Signature | + + + + + + | DERMATOPATH | SOURCE OF SPECIMEN:A | | | | | OLOGY(WET | FIRST TISSUE LEVEL IV | | | | | MNT) | [id number] CLINICAL | | | | | | DESCRIPTION:4mm, scalp; | | | | | | irreg. shaped and | | | | | | pigmented patch for a | | | | | | long time; solarlentigo, | | | | | | flat SK; R/O melanoma. | | | | | | GROSS DESCRIPTION:Scalp, | | | | | | punch, 0.4 x 0.5 cm, | | | | | | bisected. MICROSCOPIC | | | | | | DESCRIPTION:There is | | | | | | slight hyperplasia of | | | | | | the rete ridges with | | | | | | hyperpigmentation | | | | | | alongthe basal layer and | | | | | | marked solar elastosis. | | | | | | DIAGNOSIS:SOLAR | | | | | | LENTIGO. | | | | | | JAYNE/jyi12/10/07Rendering | | | | | | Diagnostician: Mata | | | | | | Spencer Lu Jr., | | | | | | Trui | | | | | | natalie Signed 12/10/2007 | | | | + + + + + + + + | Specimen | + + | | + + + + + | Narrative | Performed At | + + + | Mirella Black MD | | + + + + + + + + | Performing | Address | City/State/Zipcode | Phone Number | | Organization | | | | + + + + + | [facility] | [address] | [place] [address] | | | DERMATOPATHOLOGY | [address] | | | + + + + + documented in this encounter Visit Diagnoses Not on filedocumented in this encounter"
--- OUTSIDE RECORDS SUMMARY | ~2020-03-10 | XMS | Encounter Summary ---
Demographics + + + | Address | [address] | | | [place] [address] | + + + | Home Phone | | + + + | Preferred Language | Unknown | + + + | Marital Status | | + + + | Temple Affiliation | 1041 | + + + [...] [place] | | | | | [address] | | + + + + + | Scot Damico | ECON | [address] | | | | | [place] [address] | | + + + + + Care Team Providers + +------+ + | Care Stamp Pad Maker Name | Role | Phone | + +------+ + | Milvia Snyder MD | PCP | | + +------+ + Reason for Visit + + + | Reason | Comments | + + + | Follow-up | | + + + Evaluate & Treat [...] | | | | the | [place] [address] | [place], [place] | | | | | musculoskele | Phone: | [phone] | | | | | [employer] | [phone] | Phone: | | | | | | Fax: | [phone] | | | | | | [phone] | Fax: | | | | | | | [phone] | + +--------+ + + + + Encounter Details +--------+---------+ + + + | Date | Type | Department | Care Team | Description | +--------+---------+ + + + | 03/10/ | Office | [facility] | Dada Goodwin, | | | 2020 | Visit | NEUROLOGY [address] | | | | | [address] | [address] [facility] [address] | | | | | [place], [place] | [place] [address] | | | | | [address] | [phone] | | | | | [phone] | | | +--------+---------+ + + + Social History [...] + + + | Blood Pressure | 158/87 | 03/10/2020 1:37 PM | | | | | PDT | | + + + + + | Pulse | 82 | 03/10/2020 1:37 PM | | | | | PDT | | + + + + + | Temperature | - | - | | + + + + + | Respiratory Rate | - | - | | + + + + + | Oxygen Saturation | 100% | 03/10/2020 1:37 PM | | | | | PDT | | + + + + + | Inhaled Oxygen | - | - | | | Concentration | | | | + + + + + | Weight | 79.4 kg (175 lb) | 03/10/2020 1:37 PM | | | | | PDT | | + + + + + | Height | 172.7 cm (5' 8") | 03/10/2020 1:37 PM | | | | | PDT | | + + + + + | Body Mass Index | 26.61 | 03/10/2020 1:37 PM | | | | | PDT [...] of this encounter Patient Instructions Patient Instructions Dada Goodwin MD - 03/10/2020 1:30 PM PDT1- Elastic stockings, bel ow the knee, right leg for now. 2- Good hydration. 3- Salt tablet twice daily with food. 4- Monitor BP. 5- Follow with PCP in regard to left swelling. documented in this encounter Plan of Treatment +--------+---------+ + + + | Date | Type | Specialty | Care Team | Description | +--------+---------+ + + + | 05/02/ | Office | Neurology | Dada Goodwin, | | 2019 | Visit | | MD [address] | | | | | | [address] | | | | | | [place] [address] | | | | | | [phone] | | | | | | | | +--------+---------+ + + + documented as of this encounter Visit Diagnoses Not on filedocumented in this encounter
--- OUTSIDE RECORDS SUMMARY | ~2020-03-10 | XMS | Encounter Summary ---
Demographics + + + | Address | [address] | | | [place] [address] | + + + | Home Phone | | + + + | Preferred Language | Unknown | + + + | Marital Status | Single | + + + | Zoroastrian Affiliation | CAT | + + + | Race | White | + + + | Ethnic Group | Not or | + + + Author + + + | Author | [facility] | + + + | Organization | [facility] | + + + | Address | Unknown | + + + | Phone | Unavailable | + + + Support + + +---------+ + | Name | Relationship | Address | Phone | + + +---------+ + | Elizabeth Damico | ECON | Unknown | | + + +---------+ + Care Team Providers + +------+ + | Care Assistant Sales Director Name | Role | Phone | + +------+ + PCP | Unavailable | + +------+ + Encounter Details +--------+ + + + + | Date | Type | Department | Care Team | Description | +--------+ + + + + | 12/30/ | Lab | Dermatopathology | Jose De Jesus Lugo V, | | | 2018 | Requisition | [address] | [place] | | | | | Mailcode: [id number] | Clinic Dermatology | | | | | [facility] | [address] [facility] | | | | | and Healing, | [place] | | | | | [facility] | [address] | | | | | Floor [place], [place] | | | | | | [address] | | | | | | [phone] | | | +--------+ + + + [...] | + +--------+ + + + | DERM PATHOLOGY | Routin | 12/26/2017 | Neoplasm of | Results for this | | | e | | uncertain behavior | procedure are in the | | | | | of skin | results section. | + +--------+ + + + documented in this encounter Results DERM PATHOLOGY (12/26/2017) + + + + + + | Component | Value | Ref Range | Performed | Pathologist | | | | | At | Signature | + + + + + + | Clinical | 1.2 x 0.8 cm | | [facility] | | | History | erythematous centrally | | DERMATOPATH | | | | ulcerated papule; r/o | | OLOGY | | | | BCC vs SCC. 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 | | | | + + + + + + | Gross | Received in formalin is | | [facility] | | | Description | a specimen labeled with | | DERMATOPATH | | | | the patient's name:A: | | OLOGY | | | | Specimen is labeled "R | | | | | | anterior temporal scalp" | | | | | | and consists of an | | | | | | irregular shave of | | | | | | papular patchy | | | | | | uham-[id number]-gnbzd skin, | | | | | | 11 x 9 x 1 mm. The | | | | | | surgical margin is inked | | | | | | blue; the tissue is | | | | | | trisected, and entirely | | | | | | submitted in cassette | | | | | | A1. 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 Most | | | | | | of the cells have | | | | | | pleomorphic, | | | | | | hyperchromatic nuclei, | | | | | | some are in mitosis, and | | | | | | most have eosinophilic | | | | | | cytoplasm. | | | | + + + + + + + + | Specimen | + + | Biopsy | + + + + + + + | Performing | Address | City/State/Zipcode | Phone Number | | Organization | | | | + + + + + | [facility] | Mailcode [id number] [address] | [facility] [place] [address] | | | DERMATOPATHOLOGY | [address] | | | + + + + + documented in this encounter Visit Diagnoses + + | Diagnosis | + + | Neoplasm of uncertain behavior of skin | + + documented in this encounter
--- OUTSIDE RECORDS SUMMARY | ~2020-03-10 | XMS | Encounter Summary ---
Demographics + + + | Address | [address] | | | [place] [address] | + + + | Home Phone | | + + + | Preferred Language | Unknown | + + + | Marital Status | | + + + | Mandaen Affiliation | 1041 | + + + | Race | Unknown | + + + | Ethnic Group | Unknown | + + + Author + + + | Author | [facility] | | | and [place] | + + + | Organization | [facility] | | | and [...] [place] | | | | | [address] | | + + + + + | Scot Damico | ECON | [address] | | | | | [place] [address] | | + + + + + Care Team Providers + +------+ + | Care Parole Board Member Name | Role | Phone | + +------+ + | Ralph Chatman MD | PCP | | + +------+ + Encounter Details +--------+ + + + + | Date | Type | Department | Care Team | Description | +--------+ + + + + | 07/02/ | Orders Only | [facility] [place] | [place], | Cough (Primary Dx) | | 2013 | | PULMONARY [address] | Irina Sofia MD | | | | | [place], | | | | | | [place] [address] | | | | | | [phone] | | | +--------+ + + + [...] | | | [place] [address] | | | | | | [phone] | | | | | | | | +--------+---------+ + + + documented as of this encounter Results PFT PULMONARY FUNCTION TESTING ORDERS Full PFT (Marion w/BD, lung volumes, diffusion)?: Yes (08/03/2014 9:26 AM PDT) + + + | Narrative | Performed At | + + + | Irina Norton MD 08/03/2014 9:26 PULMONARY | | | FUNCTION TESTING METHOD: Spirometry was obtained pre | | | administration of inhaled bronchodilator only. Lung volumes were | | | obtained by body plethysmography. Diffusion capacity was obtained by | | | single breath method and was not corrected for a measured | | | hemoglobin. ATS standards were met. SPIROMETRY: FVC was normal | | | at 4.05 L or 131% of predicted. FEV1 was normal at 2.85 L or 120% of | | | predicted. FEV1/FVC ratio was normal at 70%. LUNG VOLUMES: Total | | | lung capacity was normal at 6.35 L or 114% of predicted. Residual | | | volume was normal at 2.30 L or 91% of predicted. RV/TLC ratio was | | | mildly decreased at 36% or 77 % of predicted. DIFFUSION CAPACITY: | | | Diffusion capacity was moderately decreased at 13.8 mL/mmHg per | | | minute or 58% of predicted and was not corrected for a measured | | | hemoglobin. IMPRESSION: Spirometry is normal. Lung volume testing is | | | normal. Diffusion capacity is moderately reduced and is not | | | corrected for measured hemoglobin. Electronically signed by: | | | Irina Norton MD 08/03/2014 9:22 [facility] | | | [facility] CC: Ralph Morris Compa | | + + + + + | Procedure Note | + + | Irina Norton MD - 08/03/2014 9:22 AM PDT PULMONARY FUNCTION TESTING | | METHOD: Spirometry was obtained pre administration of inhaled bronchodilator only. Lung | | volumes were obtained by body plethysmography. Diffusion capacity was obtained by single | | breath method and was not corrected for a measured hemoglobin. ATS standards were met. | | SPIROMETRY: FVC was normal at 4.05 L or 131% of predicted. FEV1 was normal at 2.85 L or | | 120% of predicted. FEV1/FVC ratio was normal at 70%. LUNG VOLUMES: Total lung capacity | | was normal at 6.35 L or 114% of predicted. Residual volume was normal at 2.30 L or 91% | | of predicted. RV/TLC ratio was mildly decreased at 36% or 77 % of predicted. DIFFUSION | | CAPACITY: Diffusion capacity was moderately decreased at 13.8 mL/mmHg per minute or 58% | | of predicted and was not corrected for a measured hemoglobin.IMPRESSION: Spirometry is | | normal. Lung volume testing is normal. Diffusion capacity is moderately reduced and is | | not corrected for measured hemoglobin.Electronically signed by: Irina Norton, | | 08/03/2014 9:22[facility] | |[facility] | | | |CC: Ralph Chatman | + + documented in this encounter Visit Diagnoses + + | Diagnosis | + + | Cough - Primary | + + documented in this encounter"
--- OUTSIDE RECORDS SUMMARY | ~2020-03-10 | XMS | Encounter Summary ---
Demographics + + + | Address | [address] | | | [place] [address] | + + + | Home Phone | | + + + | Preferred Language | Unknown | + + + | Marital Status | | + + + | Latter Day Affiliation | 1041 | + + + | Race | Unknown | + + + | Ethnic Group | Unknown | + + + Author + + + | Author | [facility] | | | and [place] | + + + | Organization | [facility] | | [...] [place] | | | | | [address] | | + + + + + | Scot Damico | ECON | [address] | | | | | [place] [address] | | + + + + + Care Team Providers + +------+ + | Care Controlled Area Checker Name | Role | Phone | + +------+ + | Ralph Chatman MD | PCP | | + +------+ + Encounter Details +--------+ + + + + | Date | Type | Department | Care Team | Description | +--------+ + + + + | 06/01/ | Abstract | [facility] [place] | [place], | Cough (Primary Dx) | | 2013 | | PULMONARY [address] | Irina Sofia MD | | | | | [place], | | | | | | [place] [address] | | | | | | [phone] | | | +--------+ + + + [...] | | | [place] [address] | | | | | | [phone] | | | | | | | | +--------+---------+ + + + documented as of this encounter Visit Diagnoses + + | Diagnosis | + + | Cough - Primary | + + documented in this encounter"
--- OUTSIDE RECORDS SUMMARY | ~2020-03-10 | XMS | Encounter Summary ---
Demographics + + + | Address | [address] | | | [place] [address] | + + + | Home Phone | | + + + | Preferred Language | Unknown | + + + | Marital Status | | + + + | Buddhist Affiliation | 1041 | + + + | Race | Unknown | + + + | Ethnic Group | Unknown | + + + Author + + + | Author | [facility] | | | and [place] | + + + | Organization | [facility] | | | and [...] [place] | | | | | [address] | | + + + + + | Scot Damico | ECON | [address] | | | | | [place] [address] | | + + + + + Care Team Providers + +------+ + | Care Referral Coordinator Name | Role | Phone | + +------+ + | Ralph Chatman MD | PCP | | + +------+ + Reason for Visit +--------+ + | Reason | Comments | +--------+ + | COPD | 6 month follow up | +--------+ + Encounter Details +--------+---------+ + + + | Date | Type | Department | Care Team | Description | +--------+---------+ + + + | 01/26/ | Office | [facility] | [place], | Panlobular emphysema | | 2016 | Visit | PULMONARY [address] | Irina Sofia MD | ([facility]) (Primary Dx); | | | | [place], | | Pulmonary nodules; | | | | [place] [address] | | Incomplete AV heart | | | | [phone] | | block; PANCHITO | | | | | | (obstructive sleep | | | | | | apnea) | +--------+---------+ + + + Social History [...] | | | + +---+---+---+ + + | Tobacco Cessation: Counseling Given: No | + + + + +---------+ + | Alcohol [...] + + + | Blood Pressure | 124/62 | 01/27/2016 12:55 PM | | | | | PDT | | + + + + + | Pulse | 68 | 01/27/2016 12:55 PM | | | | | PDT | | + + + + + | Temperature | - | - | | + + + + + | Respiratory Rate | - | - | | + + + + + | Oxygen Saturation | 97% | 01/27/2016 12:55 PM | | | | | PDT | | + + + + + | Inhaled Oxygen | - | - | | | Concentration | | | | + + + + + | Weight | 86.2 kg (190 lb 1.6 | 01/27/2016 12:55 PM | | | | oz) | PDT | | + + + + + | Height | 172.7 cm (5' 8") | 01/27/2016 12:55 PM | | | | | PDT | | + + + + + | Body Mass Index | 28.9 | 01/27/2016 12:55 PM | | | | | PDT [...] of this encounter Patient Instructions Patient Instructions Irina Norton MD - 01/27/2016 1:29 PM PDTI would ask about a ResMed Mendez FX nasal pillows mask or a ResMed Airfit P10 nasal pillows mask the next time you go in to [facility] as you might find it less confining than the full face mask. No changes today. Continue to work on walking. Talk to Dr. Chatman about follow up options, but you do need to have someone check your CPAP e very 1-2 years. The sleep center has a PA, Scot lBack who can do that. documented in this encounter Progress Notes Irina Norton MD - 01/27/2016 1:03 PM PDTFormatting of this note might be differe nt from the original. Pulmonary Follow Up HPI Iraida Damico is a 80 y.o. male patient of Ralph Chatman here today for follo w up of COPD/shortness of breath. He did get a pacemaker put in this past week after he had a syncopal spell, though he also had some of his blood pressure medications reduced. His thinks it has given him a lot m ore energy, he is not certain it has helped his breathing as of yet. He made it through the winter without any major acute illnesses. Currently he is able to walk 1/2 mile at his own pace on level ground. He is exercising reg ularly. The route they walk is close to a mile, and he stops about group home on a bridge and w atches the water. He has had to restrict somewhat with the pacemaker placement, but he has s till been walking some. He is wearing his CPAP most of the time, at least part of the night, though he still takes it off some of the time. He prefers the freedom of not having it on. Past Medical History Past Medical History Diagnosis Date Aortic valve regurgitation 2006 s/p AVR 07/2013 Hypertension Degenerative joint disease rt knee-replacement done Epidural abscess 2003 related to septic in low back region Pneumonia 04/2013 several episodes, including as an infant Melanoma (HCC) 2009, 2010 x 3; 2 in head region and left nipple COPD (chronic obstructive pulmonary disease) (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 Ceballos Knee arthroscopy 2003 Right Total knee arthroplasty 2006 Right Skin cancer excision 2009, 2010 Cardiac catherization 07/06/2013 EF 60-65% and normal coronaries Transesophageal echocardiogram 03/30/2014 Laterality: N/A; Surgeon: Theo Garza MD; [facility]: [facility] Other surgical history N/A 01/18/2016 Procedure: EP STUDY POSS ABLATION ; Surgeon: Jude Agrawal MD; Location: [facility] Pacemaker placement N/A 01/19/2016 Procedure: PLACEMENT - PACEMAKER LEAD DUAL PATIENT WILL BE IN HOUSE; Surgeon: Jude Agrawal MD; Location: [facility] Social History: History Social History Marital Status: Spouse Name: N/A Number of Children: N/A Years of Education: N/A 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 Social History Main Topics Smoking status: Former Smoker -- 0.50 packs/day for 1 years Types: Cigarettes Quit date: 10/07/1957 Smokeless tobacco: Never Used Alcohol Use: 0.0 oz/week 2-3 Glasses of wine per week Drug Use: No Sexual Activity: Not on file Other Topics Concern None Social History Narrative Lives: [place] With: his Grew up: [facility] Has previously lived in: [place], [place], born in [place] Exposure to toxic chemicals: possibly as a [...] Cough Medications: Outpatient Encounter Prescriptions as of 01/27/2016 Medication Sig Dispense Refill albuterol 90 mcg/puff inhaler Inhale 2 puffs into the lungs every 6 hours as needed for Wheezing. amLODIPine (NORVASC) 5 mg tablet Take 5 mg by mouth Daily. ascorbic acid (VITAMIN C) 500 mg tablet Take 500 mg by mouth Daily. aspirin 325 mg tablet Take 325 mg by mouth Daily. Iwyzwvz-Ohvavnlwxpyyp-Spsyilge (EXCEDRIN MIGRAINE PO) Take 1 tablet by mouth as needed. Cholecalciferol (VITAMIN D3) 2000 UNITS CAPS Take 2,000 Units by mouth Daily. doxycycline (VIBRAMYCIN) 100 mg capsule Take 1 capsule by mouth 2 times daily. 14 capsu le 0 HYDROcodone-acetaminophen (NORCO) 5-325 mg per tablet Take 1 tablet by mouth every 6 ho urs as needed for Pain. 20 tablet 0 loperamide ([employer] ANTI-DIARRHEAL) 2 MG tablet Take 2 mg by mouth Daily. omeprazole (PRILOSEC) 20 mg capsule Take 20 mg by mouth Daily as needed. pseudoePHEDrine (SUDAFED) 30 mg tablet Take 30 mg by mouth every 4 hours as needed for Congestion. Respiratory Therapy Supplies MISC Res Med S9 auto CPAP 9 cm H2O. Heater and Humidifier. All necessary supplies. AHI 7.6, 60.5 in supine. Diagnosis Code(s)327.23. Length of Need 99 months. Please send order to [facility]. 1 each 99 No facility-administered encounter medications on file as of 01/27/2016. Review of Systems: General: []Weight loss/gain (over 10 lbs) []Fever/chills/sweats []Night sweats EENT: []Hearing loss []Vision loss/change []Sinus congestion/nasal drainage []Nosebleeds [ ]Hoarseness Cardiac: []Chest pain [x]Palpitations/heart racing - recent pacemaker placement [x]Swelling of legs /ankles []Waking up at night short of breath []Difficulty sleeping flat Gastrointestinal: []Nausea/vomiting []Difficulty swallowing []Heartburn/acid reflux []Loss of appetite []Abd ominal pain Urologic: []Blood in urine []Frequent urination at night []Burning/painful urination []Difficulty wi th urination Objective BP 124/62 mmHg | Pulse 68 | Ht 1.727 m (5' 8") | Wt 86.229 kg (190 lb 1.6 oz) | BMI 28.91 k g/m2 | SpO2 97% RA General Appearance: Alert, cooperative, no distress, appears stated age Head: Normocephalic, without obvious abnormality, atraumatic Eyes: PERRL, conjunctiva clear, no scleral icterus, EOM's intact Ears: Normal TM's, external auditory canals, normal acuity Nose: Nares normal, septum midline, mucosa normal Mouth: No oral lesions or exudate Neck: Supple, symmetrical, no adenopathy Lungs: No accessory muscle use, breath sounds are clear to auscultation bilaterally, no w heezes, crackles or rhonchi Chest Wall: No deformity Heart: Regular rate and rhythm with occasional pauses, no murmur, rub or gallop Abdomen: Soft, non-tender, non-distended Extremities: No cyanosis, clubbing, 1+ bilateral lower extremity edema Pulses: Radial pulses 2+ and symmetric Skin: Warm and dry Lymph nodes: Cervical and supraclavicular nodes normal Data: Notes from Mio Hughes, Jude Agrawal, and Joaquin Soto are reviewed today. Labs: Results for [place] DAMICO ( ) as of 01/27/2016 14:49 Ref. Range 01/18/2016 09:53 WBC Latest Ref Range: 3.8-11.0 K/uL 5.4 RBC: Latest Ref Range: 4.20-5.70 M/uL 5.00 Hgb Latest Ref Range: 13.2-17.0 g/dL 15.2 Hct, Final Latest Ref Range: 39.0-50.0 % 46.9 MCV Latest Ref Range: 80.0-100.0 fL 93.9 MCH Latest Ref Range: 27.0-34.0 pg 30.4 MCHC Latest Ref Range: 32.0-35.5 g/dL 32.4 RDW-CV Latest Ref Range: 11.0-15.5 % 14.7 Platelet Count Latest Ref Range: 150-400 K/uL 167 NA Latest Ref Range: 135-145 mmol/L 140 K Latest Ref Range: 3.5-5.0 mmol/L 4.3 CL Latest Ref Range: 99-109 mmol/L 108 CO2 Latest Ref Range: 21-28 mmol/L 27 ANION GAP Latest Ref Range: 5-16 mmol/L 5 GLUCOSE Latest Ref Range: 65-99 mg/dL 103 (H) BUN Latest Ref Range: 8-25 mg/dL 19 CREA Latest Ref Range: 0.70-1.30 mg/dL 0.89 Estimated GFR Latest Ref Range: >60 ml/min/1.73m2 >60 Calcium Latest Ref Range: 8.5-10.2 mg/dL 9.5 Ralph Chatman's notes were reviewed in clinic today. Immunization History Administered Date(s) Administered INFLUENZA, >= 4YO W/PRESERVATIVE IM 07/07/2013 INFLUENZA, HIGH DOSE SEASONAL (ADULT) 07/11/2015 INFLUENZA, TRIVALENT PRESERVATIVE FREE (PED/ADOL/ADULT) 06/21/2014 PNEUMOCOCCAL CONJUGATE 13-VALENT (PCV13) 07/07/2015 PNEUMOCOCCAL POLYSACCHARIDE 23-VALENT (PPSV23) 10/07/2009 ZOSTER, 1 DOSE (ADULT) 07/07/2012 Assessment ICD-10-CM ICD-9-CM 1. Panlobular emphysema (HCC) J43.[address] scan, with normal PFTs. He did not benefit from inhaler therapy, and I would not suggest additional management, other than as n eeded albuterol. 2. Pulmonary nodules R91.8 793.19 Stable at 1 year follow up and does not require further r outine imaging. 3. Incomplete AV heart block I44.30 426.10 Sinus bradycardia with 1st degree or 2nd degree AV block, s/p pacemaker after syncopal episode. His thinks his symptomatic dyspnea has subsequently improved, which would make sense p ost valve replacement. 4. PANCHITO (obstructive sleep apnea) G47.33 327.23 On CPAP. I did suggest that he have routine follow up of this every 1-[address] Chatman is not comfortable managing this, his other op tions are Dr. Soto or Scot Black here after my departure. Plan 1.Continue regular exercise. 2.Continue CPAP at current settings. 3.He should have follow up of his CPAP every 1-2 years. 4.Continued cardiology management. 5. I encouraged him to enjoy himself, and his grandchildren, which bring him a great deal o f rosalina. He was advised to call if new pulmonary symptoms were to develop. Return to clinic as needed. CC: Ralph Chatman MD Portions of this report were transcribed using voice recognition software. Every effort wa s made to ensure accuracy; however, inadvertent computerized nurse gynecology errors may be pre sent. documented in this encounter Plan of Treatment [...] | | | [place] [address] | | | | | | [phone] | | | | | | | | +--------+---------+ + + + documented as of this encounter Visit Diagnoses + + | Diagnosis | + + | Panlobular emphysema (HCC) - Primary Other emphysema | + + | Pulmonary nodules Other nonspecific abnormal finding of lung field | + + | Incomplete AV heart block | + + | PANCHITO (obstructive sleep apnea) Obstructive sleep apnea (adult) (pediatric) | + + documented in this encounter
--- OUTSIDE RECORDS SUMMARY | ~2020-03-10 | XMS | Encounter Summary ---
Demographics + + + | Address | [address] | | | [place] [address] | + + + | Home Phone | | + + + | Preferred Language | Unknown | + + + | Marital Status | | + + + | Sikh Affiliation | 1041 | + + + | Race | Unknown | + + + | Ethnic Group | Unknown | + + + Author + + + | Author | [facility] | | | and [place] | + + + | Organization | [facility] | | | [...] [place] | | | | | [address] | | + + + + + | Scot Damico | ECON | [address] | | | | | [place] [address] | | + + + + + Care Team Providers + +------+ + | Care Sales Clerk Supervisor Name | Role | Phone | [...] | | | | Bradycardia | | Jude Rodriguez MD | | | | | Procedures | | [address] | | | | | [place] | | [address] | | | | | ELECTROPHYS | | [place] | | | | | Theo NORMAN-V | | [place] | | | | | PACE/REC,W/O | | [address] Phone: | | | | | INDUCT | | [phone] | +--------+--------+ + + + + Encounter Details +--------+---------+ + + + | Date | Type | Department | Care Team | Description | +--------+---------+ + + + | 01/18/ | Surgery | [facility] | Jude Agrawal, | PLACEMENT - | | 2015 | | [facility] | MD [address] | PACEMAKER LEAD DUAL | | | | ELECTROPHYSIOLOGY | CHARITY [place] | PATIENT WILL BE IN | | | | [address] | [place] [address] | HOUSE | | | | [place] | [phone] | | | | | [address] | | | | | | [phone] | | | +--------+---------+ + + + [...] + + + | Blood Pressure | 147/81 | 01/20/2016 8:14 AM | | | | | PDT | | + + + + + | Pulse | 67 | 01/20/2016 8:14 AM | | | | | PDT | | + + + + + | Temperature | 36.9 C (98.4 F) | 01/20/2016 8:14 AM | | | | | PDT | | + + + + + | Respiratory Rate | 18 | 01/20/2016 8:14 AM | | | | | PDT | | + + + + + | Oxygen Saturation | 93% | 01/20/2016 8:14 AM | | | | | PDT | | + + + + + | Inhaled Oxygen | - | - | | | Concentration | | | | + + + + + | Weight | 83.3 kg (183 lb 10.3 | 01/18/2016 7:00 PM | | | | oz) | [...] - 01/20/2016 9:20 AM PDT DISCHARGE SUMMARY [facility] PATIENT NAME/: Iraida Damico, (1935) DATE OF ADMISSION: 01/18/2016 DATE OF DISCHARGE: 01/20/2016 DISCHARGING MID-LEVEL: Heidi Araya PA-C DISCHARGING PHYSICIAN: Jude Agrawal MD DISPOSITION: Discharge to [facility] [...] Medtronic pacemaker, model number A2DR01, serial number [id number]. The device looks great at discharge. He [...] syncope. POSTOPERATIVE DIAGNOSIS: Electrophysiology study for syncope. HOSTED SERVICES ANALYST: Jude Agrawal MD PROCEDURE: The patient presents to undergo [...] AV block that is no t reversible. HOSTED SERVICES ANALYST: Jude Agrawal MD. PROCEDURE: The patient presents with symptomatic bradyarrhythmias from intermittent hig h-degree AV block.Medtronic pacemaker, model number A2DR01, serial number [id number]. Device is seen to sense and pace [...] for Congestion. aka: SUDAFED Respiratory Therapy Supplies Misc Res Med S9 auto CPAP 9 cm H2O. Heater and Humidifier. All necessary supplies. AHI 7.6, 60. 5 in supine. Diagnosis Code(s)327.23. Length of Need 99 months. Please send order to [facility]. PATIENT INSTRUCTIONS: ACTIVITY: activity as tolerated DIET: cardiac diet FOLLOW-UP: Follow up with Jude Agrawal MD in 3 months with a device interrogation. Follow up in 1 week with primary care provider for a wound check. Follow up with Dr. Mio Hughes in 1-2 months as needed. Time spent on discharge planning: less than 30 minutes Thank you for allowing [facility] to be involved in the care of this patient. Please call with any questions . Patient Care Team: Ralph Chatman as PCP - General (Internal Medicine) Mio Hughes MD as Physician (Cardiology) Irina Norton MD as Physician (Pulmonary Disease) Associated attestation - Jude Agrawal MD - 01/23/2016 3:36 PM PDTFollow up arrangedd ocumented in this encounter Discharge Instructions Instructions Fany Bunn, RN - 01/18/2016 Home Care Only do [...] Black or tarry stools Any unusual bleeding [address], [place] [address]. All rights reserve d. This information is [...] capsule by | 14 | 0 | 01/20/20 | | | (VIBRAMYCIN) 100 mg | mouth 2 times daily. | capsule | | 16 | | | capsule | | | | | | + + + +---------+ + + | | Take 1 tablet by | 20 | 0 | 01/20/20 | | | HYDROcodone-acetamin | mouth every [...] Description | +--------+---------+ + + + | 07/27/ | Office | Neurology | Dada Goodwin, | | | 2019 | Visit | | MD Gabriel SELLERS | | | | | | [address] | | | | | | [place] [address] | | | | | | [phone] | | | | | | | | +--------+---------+ + + + + + +--------+ + [...] | + +--------+ + + + | PLACEMENT - | | 01/19/2016 | Bradycardia | | | PACEMAKER LEAD DUAL | | 12:06 PM | | | | ([id number]) | | PDT | | | + [...] | [facility] | | | | at [facility] | | [facility] | | [facility], | | HEART | | | | [address] [place] [address] | | MEDICAL | | | | [address] | | CENTER | | | | | | LABORATORY | | + + + + + + + + | Specimen | + + | | + + + + + + + | Performing | Address | City/State/Zipcode | Phone Number | | Organization | | | | + + + + + | [facility] | [address] | [place] [address] | | | [facility] | | | | | LABORATORY | | | | + + + + + CBC no Differential (01/18/2016 9:53 AM PDT) + + + + + + | Component | Value | Ref Range | Performed | Pathologist | | | | | At | Signature | + + + + + + | WBC | 5.4 | 3.8 - 11.0 K/uL | [facility] | | | | | | [facility] | | | | | | HEART | | | | | | MEDICAL | | | | | | CENTER | | | | | | LABORATORY | | + + + + + + | RBC | 5.00 | 4.20 - 5.70 | [facility] | | | | | M/uL | [facility] | | [...] + + | [facility] | [address] | [place] [address] | | | [facility] | | | | | LABORATORY [...] + + | Glucose | 103 (H)Comment: Ukrainian | 65 - 99 mg/dL | [facility] [...] at | | | | | | [place] | | | | | | [facility], [address] | | | | | | [place] [address] | | | | + + + + + + + + | Specimen | + + | Blood specimen | | (specimen) | + + + + + + + | Performing | Address | City/State/Zipcode | Phone Number | | Organization | | | | + + + + + | [facility] | [address] | [place] [address] | | | [facility] | | | | | LABORATORY [...] 30 mLs | | | | Starting [facility] 01/19/16 at 1240 | | 16 12:40 [...] 1:04 | | | | | Starting [facility] 01/19/16 at 1219 | | PM [...] 10:05 | | | | | Intravenous, RAILWAY SIGNALLING ENGINEER, Starting | | AM PDT | | | | | 01/18/16 at 0920, For 1 dose, | | | | | | | Pre-op | | | | | | + +---------+ +---+ +---+ +---+---+ | | | +---+---+ documented in this encounter
--- OUTSIDE RECORDS SUMMARY | ~2020-03-10 | XMS | Encounter Summary ---
Demographics + + + | Address | [address] | | | [place] [address] | + + + | Home Phone | | + + + | Preferred Language | Unknown | + + + | Marital Status | | + + + | Buddhism Affiliation | 1041 | + + + | Race | Unknown | + + + | Ethnic Group | Unknown | + + + Author + + + | Author | [facility] | | | and [place] | + + + | Organization | [facility] | | | [...] [place] | | | | | [address] | | + + + + + | Scot Damico | ECON | [address] | | | | | [place] [address] | | + + + + + Care Team Providers + +------+ + | Care Vessel Operator Name | Role | Phone | + +------+ + PCP | Unavailable | + +------+ + Encounter Details +--------+ + + + + | Date | Type | Department | Care Team | Description | +--------+ + + + + | 11/15/ | Hospital | [facility] | | | | 1995 | Encounter | MED CTR OP REHAB | | | | | | [address] [place] | | | | | | [place] [address] | | | | | | [phone] | | | +--------+ + + + [...] | | | [place] [address] | | | | | | [phone] | | | | | | | | +--------+---------+ + + + documented as of this encounter Visit Diagnoses Not on filedocumented in this encounter"
--- OUTSIDE RECORDS SUMMARY | ~2020-03-10 | XMS | Encounter Summary ---
Demographics + + + | Address | [address] | | | [place] [address] | + + + | Home Phone | | + + + | Preferred Language | Unknown | + + + | Marital Status | | + + + | Buddhist Affiliation | 1041 | + + + | Race | Unknown | + + + | Ethnic Group | Unknown | + + + Author + + + | Author | [facility] | | | and [place] | + + + | Organization | [facility] [...] [place] | | | | | [address] | | + + + + + | Scot Damico | ECON | [address] | | | | | [place] [address] | | + + + + + Care Team Providers + +------+ + | Care Integrated Marketing Intern Name | Role | Phone | + +------+ + PCP | Unavailable | + +------+ + Encounter Details +--------+ + + + + | Date | Type | Department | Care Team | Description | +--------+ + + + + | 04/20/ | Hospital | [facility] | | | | 2007 | Encounter | MED CTR XRAY [address] | | | | | | [place] | | | | | | [place] [address] | | | | | | [phone] | | | +--------+ + + + [...] | | | [place] [address] | | | | | | [phone] | | | | | | | | +--------+---------+ + + + documented as of this encounter Visit Diagnoses Not on filedocumented in this encounter"
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
--- OUTSIDE RECORDS SUMMARY | ~2020-03-10 | XMS | Encounter Summary ---
Demographics + + + | Address | [address] | | | [place] [address] | + + + | Home Phone | | + + + | Preferred Language | Unknown | + + + | Marital Status | | + + + | Mormon Affiliation | 1041 | + + + [...] [place] | | | | | [address] | | + + + + + | Scot Mookie | ECON | [address] | | | | | [place] [address] | | + + + + + Care Team Providers + +------+ + | Care Wind Science And Planning Name | Role | Phone | + +------+ + | Ralph Chatman MD | PCP | | + +------+ + Reason for Referral Evaluate & Treat (Routine) +--------+ + + + + + | Status | Reason | Specialty | Diagnoses / | Referred By | Referred To | | | | | Procedures | Contact | Contact | +--------+ + + + + + | Closed | Specialty | Clinic/Center | Diagnoses | | [facility] | | | Services | - Sleep | PANCHITO | Off[place], | SLEEP | | | Required | Disorder | (obstructive | Irina B, | DISORDERS | | | | Diagnostic | sleep | [address] | CENTER [address] | | | | | apnea) | [address] | [place] | | | | | Sleep | [place], | [address] | | | | | related | [place] [address] | [place], [place] | | | | | hypoventilat | | [address] | | | | | ion/hypoxemi | | Phone: | | | | | a in | | [phone] | | | | | conditions | | Fax: | | | | | classifiable | | [phone] | | | | | elsewhere | | | +--------+ + + + + + Reason for Visit +--------+ + | Reason | Comments | +--------+ + | Other | sleep study | +--------+ + Encounter Details +--------+ + + + + | Date | Type | Department | Care Team | Description | +--------+ + + + + | 08/23/ | Telephone | [facility] | Er[place], | Other (sleep study) | | 2013 | | PULMONARY [address] | Irina Sofia MD | | | | | [place], | | | | | | [place] [address] | | | | | | [phone] | | | +--------+ + + + [...] | | | [place] [address] | | | | | | [phone] | | | | | | | | +--------+---------+ + + + + + +--------+ + + | Name | Type | Priori | Associated Diagnoses | Order Schedule | | | | ty | | | + + +--------+ + + | Sleep Studies, | Outpatient | Routin | PANCHITO (obstructive | Ordered: 08/23/2014 | | External - AMB | Referral | e | sleep apnea) Sleep | | | Referral | | | related | | | | | | hypoventilation/hypo | | | | | | xemia in conditions | | | | | | classifiable | | | | | | elsewhere | | + + +--------+ + + documented as of this encounter Visit Diagnoses + + | Diagnosis | + + | PANCHITO (obstructive sleep apnea) - Primary Obstructive sleep apnea (adult) (pediatric) | + + | Sleep related hypoventilation/hypoxemia in conditions classifiable elsewhere | + + documented in this encounter"
--- OUTSIDE RECORDS SUMMARY | ~2020-03-10 | XMS | Encounter Summary ---
Demographics + + + | Address | [address] | | | [place] [address] | + + + | Home Phone | | + + + | Preferred Language | Unknown | + + + | Marital Status | | + + + | Rastafari Affiliation | 1041 | + + + | Race | Unknown | + + + | Ethnic Group | Unknown | + + + Author + + + | Author | [facility] | | | and [place] | + + + | Organization | [facility] | | | [...] [place] | | | | | [address] | | + + + + + | Scot Damico | ECON | [address] | | | | | [place] [address] | | + + + + + Care Team Providers + +------+ + | Care Cellulose Insulation Helper Name | Role | Phone | + [...] | | | | the | [place] [address] | [place], [place] | | | | | musculoskele | Phone: | [address] | | | | | [employer] system | [phone] | Phone: | | | | | | Fax: | [phone] | | | | | | [phone] | Fax: | | | | | | | [phone] | + +--------+ + + + + Encounter Details +--------+---------+ + + + | Date | Type | Department | Care Team | Description | +--------+---------+ + + + | 03/10/ | Office | [facility] | Dada Goodwin, | | | 2020 | Visit | NEUROLOGY [address] | | | | | [address] | [address] [facility] [address] | | | | | [place], [place] | [place] [address] | | | | | [address] | [phone] | | | | | [phone] | | | +--------+---------+ + + + [...] | | | | | [place] [address] | | | | | | [phone] | | | | | | | | +--------+---------+ + + + documented as of this encounter Visit Diagnoses Not on filedocumented in this encounter
--- OUTSIDE RECORDS SUMMARY | ~2020-03-10 | XMS | Encounter Summary ---
Demographics + + + | Address | [address] | | | [place] [address] | + + + | Home Phone | | + + + | Preferred Language | Unknown | + + + | Marital Status | Single | + + + | Hoahaoism Affiliation | CAT | + + + | Race | White | + + + | Ethnic Group | Not or | + + + Author + + + | Author | [facility] | + + + | Organization | [facility] | + + + | Address | Unknown | + + + | Phone | Unavailable | + + + Support + + +---------+ + | Name | Relationship | Address | Phone | + + +---------+ + | Elizabeth Damico | ECON | Unknown | | + + +---------+ + Care Team Providers + +------+ + | Care Face Man Name | Role | Phone | + [...] [place] | | | | | | [address] | | | | | | | [...] | DERMATOPATH | | | MNT) | [address] CLINICAL | | OLOGY | | | [...] | | | | | | Jason uL | | | | | | Trui [...] | [facility] | Mailcode CH5D [address] | [place] [address] | | | DERMATENEDINA | [place] | | | + + + + + documented in this encounter Visit Diagnoses Not on filedocumented in this encounter
--- OUTSIDE RECORDS SUMMARY | ~2020-03-10 | XMS | Encounter Summary ---
Demographics + + + | Address | [address] | | | [place] [address] | + + + | Home Phone | | + + + | Preferred Language | Unknown | + + + | Marital Status | | + + + | Yazdanism Affiliation | 1041 | + + + | Race | Unknown | + + + | Ethnic Group | Unknown | + + + Author + + + | Author | [facility] | | | and [place] | + + + | Organization | [facility] | | | and [...] [place] | | | | | [address] | | + + + + + | Scot Damico | ECON | [address] | | | | | [place] [address] | | + + + + + Care Team Providers + +------+ + | Care Carcass Washer Name | Role | Phone | + +------+ + | Ralph Chatman MD | PCP | | + +------+ + Encounter Details +--------+ + + + + | Date | Type | Department | Care Team | Description | +--------+ + + + + | 06/25/ | Hospital | [facility] | [place], | Cough | | 2013 | Encounter | MED CTR PULMONARY | Irina Sofia MD | | | | | FUNCTION [address] | | | | | | [place], | | | | | | [place] [address] | | | | | | [phone] | | | +--------+ + + + [...] | + + + +---------+--------+ + | albuterol (PROAIR | Inhale 2 puffs into | | 0 | | | | HFA) 90 mcg/puff | the lungs every 6 | | | | 5 | | inhaler | hours as needed. | | | | | + [...] +---------+--------+ + documented as of this encounter Plan [...] | | | [place] [address] | | | | | | [phone] | | | | | | | | +--------+---------+ + + + documented as of this encounter Visit Diagnoses + + | Diagnosis | + + | Cough | + + documented in this encounter"
--- OUTSIDE RECORDS SUMMARY | ~2020-03-10 | XMS | Encounter Summary ---
Demographics + + + | Address | [address] | | | [place] [address] | + + + | Home Phone | | + + + | Preferred Language | Unknown | + + + | Marital Status | | + + + | Episcopalian Affiliation | 1041 | + + + [...] [place] | | | | | [address] | | + + + + + | Scot Damico | ECON | [address] | | | | | [place] [address] | | + + + + + Care Team Providers + +------+ + | Care Geothermal System Installer Name | Role | Phone | [...] [address] | | | | | [place] | | [address] | | | | | ELECTROPHYS | | [place] | | | | | Theo [place] | | [place] | | | | | PACE/REC,W/O | | [address] Phone: | | | | | INDUCT | | [phone] | +--------+--------+ + + + + Encounter Details +--------+ + + + + | Date | Type | Department | Care Team | Description | +--------+ + + + + | 01/17/ | Hospital | [facility] | Jude Agrawal, | | | 2016 - | Encounter | HEART MED CTR | MD [address] | | | | | CARDIAC TRANSPLANT | CHAR[address] | | | 01/19/ | | [address] | [place] [address] | | | 2015 | | [place] | [phone] | | | | | [address] | | | | | | [phone] | | | +--------+ + + + [...] Medtronic pacemaker, model number A2DR01, serial number [id number]. The device looks great at discharge. He [...] syncope. POSTOPERATIVE DIAGNOSIS: Electrophysiology study for syncope. DIRECTOR OF PATIENT CARE: Jude Agrawal MD PROCEDURE: The patient presents [...] AV block that is no t reversible. DIRECTOR OF PATIENT CARE: Jude Agrawal MD. PROCEDURE: The patient presents with symptomatic bradyarrhythmias from intermittent hig h-degree AV block.Medtronic pacemaker, model number A2DR01, serial number [id number]. Device is seen to sense and pace [...] for Congestion. aka: SUDAFED Respiratory Therapy Supplies [facility] S9 auto CPAP 9 cm [...] minutes Thank you for allowing [facility] to be involved in the care of [...] Black or tarry stools Any unusual bleeding [phone] [place] [id number]. All rights reserve d. This information is [...] tablet by | 20 | 0 | / | | | HYDROcodone-acetamin | mouth every [...] Neurology | Dada Goodwin, | | | 2020 | Visit | | [address] | | | | | | [place] [address] | | | | | | [phone] | | | | | | | [...] | 12:06 PM | | | | ([id number]) | | PDT | | | + +--------+ + + + | EP STUDY POSS | | 01/18/2016 | Bradycardia | | | ABLATION OR IMPLANT | | 10:51 AM | | | | ([id number]) | | PDT | | | + [...] | [facility] | | | | at [facility] | | [facility] | | [facility], | | HEART | | | | [address] [place] | | MEDICAL | | | | [address] | | CENTER | | | | | | LABORATORY | | + + + + + + + + | Specimen | + + | | + + + + + + + | Performing | Address | City/State/Zipcode | Phone Number | | Organization | | | | + + + + + | [facility] | [address] | [place] [address] | | | [facility] | | | | [...] + + + + + | [facility] | [address] | [place] [address] | | | [facility] | | [...] + + | Glucose | 103 (H)Comment: Kuwaiti | 65 - 99 mg/dL | [facility] | | | | Diabetes [...] 19 | 8 - 25 mg/dL | [facility] | | | | | | [facility] [...] at | | | | | | [facility] | | | | | | [facility], [address] | | | | | | , [place] [address] | | | | + + + + + + + + | Specimen | + + | Blood specimen | | (specimen) | + + + + + + + | Performing | Address | City/State/Zipcode | Phone Number | | Organization | | | | + + + + + | [facility] | [address] | [place] [address] | | | [facility] | | | | | LABORATORY | | | | + + + + + documented in this encounter Visit Diagnoses + + | Diagnosis | + + | NSVT (nonsustained ventricular tachycardia) (HCC) Paroxysmal ventricular tachycardia | + + | Syncope Syncope and collapse | + + | Incomplete AV heart block | + + documented in this encounter [...] 11:43 | | | | | Starting [facility] 01/18/16 at 1047 | | AM PDT [...] 1:04 | | | | | Starting [facility] 01/19/16 at 1219 | | PM [...] 10:05 | | | | | Intravenous, JUNIOR SYSTEMS ENGINEER, Starting | | AM PDT | | | | | 01/18/16 at 0920, For 1 dose, | | | | | | | Pre-op | | | | | | + +---------+ +---+ +---+ +---+---+ | | | +---+---+ documented in this encounter
--- OUTSIDE RECORDS SUMMARY | ~2020-03-10 | XMS | Encounter Summary ---
Demographics + + + | Address | [address] | | | [place] [address] | + + + | Home Phone | | + + + | Preferred Language | Unknown | + + + | Marital Status | | + + + | Amish Affiliation | 1041 | + + + | Race | Unknown | + + + | Ethnic Group | Unknown | + + + Author + + + | Author | [facility] | | | and [place] | + + + | Organization | [facility] | | | and [...] [place] | | | | | [address] | | + + + + + | Scot Damico | ECON | [address] | | | | | [place] [address] | | + + + + + Care Team Providers + +------+ + | Care Diver Assistant Name | Role | Phone | + +------+ + | Ralph Chatman MD | PCP | | + +------+ + Encounter Details +--------+ + + + + | Date | Type | Department | Care Team | Description | +--------+ + + + + | 08/26/ | Emergency | [facility] | Olaf Ballesteros, | Visit for wound | | 2016 | | [facility]ICAL [facility]ENTER | MD Mariaa [facility] | check | | | | [facility] | [place] [address] | | | | | [address] | | | | | | [place], [place] | | | | | | [address] | | | | | | [phone] | | | +--------+ + + + [...] + + + | Blood Pressure | 179/81 | 08/26/2016 2:46 PM | | | | | PST | | + + + + + | Pulse | 80 | 08/26/2016 2:46 PM | | | | | PST | | + + + + + | Temperature | 36.5 C (97.7 F) | 08/26/2016 2:46 PM | | | | | PST | | + + + + + | Respiratory Rate | 16 | 08/26/2016 2:46 PM | | | | | PST | | + + + + + | Oxygen Saturation | - | - | | + + + + + | Inhaled Oxygen | - | - | | | Concentration | | | | + + + + + | Weight | - | - | | + + + + + | Height | - | - | | + + + + + | Body Mass Index | - | - | | + [...] | | | | | | [address] | | | | | | [place] [address] | | | | | | [phone] | | | | | | | | +--------+---------+ + + + documented as of this encounter Visit Diagnoses + + | Diagnosis | + + | Visit for wound check Encounter for other specified aftercare | + + documented in this encounter"
--- OUTSIDE RECORDS SUMMARY | ~2020-03-10 | XMS | Encounter Summary ---
Demographics + + + | Address | [address] | | | [place] [address] | + + + | Home Phone | | + + + | Preferred Language | Unknown | + + + | Marital Status | | + + + | Mormon Affiliation | 1041 | + + + | Race | Unknown | + + + | Ethnic Group | Unknown | + + + Author + + + | Author | [facility] | | | and [place] | + + + | Organization | [facility] | | | [...] [place] | | | | | [address] | | + + + + + | Scot Damico | ECON | [address] | | | | | [place] [address] | | + + + + + Care Team Providers + +------+ + | Care Threader Name | Role | Phone | + [...] | | Pulmonary | Offenstein, | [address] | | | | | nodules | Irina B, | [place], | | | | | Procedures | MD [address] | [place] [address] | | | | | CT Chest wo | [address] | Phone: | | | | | Contrast | [place], | [phone] | | | | | | [place] [address] | Fax: | | | | | | | [phone] | +--------+--------+ + + + + Reason for Visit +--------+ + | Reason | Comments | +--------+ + | Apnea | f/u PANCHITO (obstructive sleep apnea) | +--------+ + Encounter Details +--------+---------+ + + + | Date | Type | Department | Care Team | Description | +--------+---------+ + + + | 04/01/ | Office | [facility] | Offenstein, | COPD (chronic | | 2014 | Visit | PULMONARY [address] | Irina Sofia MD | obstructive | | | | [place], | | pulmonary disease) | | | | [place] [address] | | (HCC); PANCHITO | | | | [phone] | | (obstructive sleep | | | [...] issues. Schedule study on your legs at [facility] documented in this encounter Progress Notes Irina Norton MD - 04/01/2015 4:07 PM PDTFormatting of this note might be differe nt from the original. Sleep Follow Up HPI Iraida Damico is a 79 y.o. male patient [...] Surgeon: Theo Garza MD; Location: [facility] Social History: History Social History Marital [...] Narrative Lives: [place] With: his Grew up: [facility] Has previously lived in: [place], [place], born in [place] Exposure to toxic chemicals: possibly as a [...] morning (before breakfast ). Respiratory Therapy Supplies [facility] Res Med S9 auto CPAP 9 cm [...] normal CPAP Data: Dates: 03/02/15-03/31/15 Machine type: App[employer]ek AirYouStickerse S10 auto CPAP Home Health Company: In [...] made to ensure accuracy; however, inadvertent computerized auto polisher errors may be pre sent. documented in [...] D | | | | | | [place] [address] | | | | | | [phone] | | | | | | | [...] COMPARISON: CT chest 07/29/2014. PROTOCOL: Axial | [facility] | | images of the chest were obtained. Coronal and sagittal reformations | [facility] | | were acquired. FINDINGS: Neck base [...] + + + + + | [facility] | [address] | [place] | [phone] | | [facility] | | [address] | | | - IMAGING | | [...]
--- OUTSIDE RECORDS SUMMARY | ~2020-03-10 | XMS | Encounter Summary ---
Demographics + + + | Address | [address] | | | [place] [address] | + + + | Home Phone | | + + + | Preferred Language | Unknown | + + + | Marital Status | | + + + | Synagogue Affiliation | 1041 | + + + | Race | Unknown | + + + | Ethnic Group | Unknown | + + + Author + + + | Author | [facility] | | | and [place] | + + + | Organization | [facility] | | | [...] [place] | | | | | [address] | | + + + + + | Scot Damico | ECON | [address] | | | | | [place] [address] | | + + + + + Care Team Providers + +------+ + | Care Neck Band Setter Name | Role | Phone | + +------+ + | Ralph Chatman MD | PCP | | + +------+ + Encounter Details +--------+ + + + + | Date | Type | Department | Care Team | Description | +--------+ + + + + | 02/11/ | Hospital | [facility] | | | | 2012 | Encounter | MED CTR XRAY [address] | | | | | | [address] | | | | | | [place] [address] | | | | | | [phone] | | | +--------+ + + + [...] | | 2019 | Visit | | [address] | | | | | | [place] [address] | | | | | | [phone] | | | | | | | [...] Performed At | + + + | [facility] | [place] | | Department [address] [place] [address] [facility] | | [ rep [address]] [ rep [facility] | | st zip] Signed | - IMAGING | | | | | Patient Name: IRAIDA DAMICO Physician: | | | [id number] : 1935 Age: 77 Sex: M Unit #: [id number] | | | Exam Date: 02/11/13 Location: [facility] | | | Report #: [id number] Page: | | | %(RAD)RES..mtdd.print.filter("pg") of %(RAD) | | | RES..mtdd.print.filter("tpg") | | | | | | Accession Number: [id number] | | | CHEST X-RAY, 02/11/2013 CLINICAL [...] | | | Transcribed Date/Time: 02/11/2013 16:41 Pigment Supplier: | | | <<Signature on File>> | | | Sridhar | | | MD Barak02/12/13 0028 <Electronically signed by Sridhar Cancino MD> | | | Sridhar Cancino MD 02/11/13 1546 Pigment Supplier: [employer] | | | [id number]/08/13 7779 Ralph Chatman MD | | | | | + + + + + + + + | Performing | Address | City/State/Zipcode | Phone Number | | Organization | | | | + + + + + | [address] | [address] | [place] | [phone] | | [facility] | | [address] | | | - IMAGING | | | | + + + + + documented in this encounter Visit Diagnoses Not on filedocumented in this encounter
--- OUTSIDE RECORDS SUMMARY | ~2020-03-10 | XMS | Encounter Summary ---
Demographics + + + | Address | [address] | | | [place] [address] | + + + | Home Phone | | + + + | Preferred Language | Unknown | + + + | Marital Status | Single | + + + | Sikhism Affiliation | CAT | + + + | Race | White | + + + | Ethnic Group | Not or | + + + Author + + + | Author | [facility] | + + + | Organization | [facility] | + + + | Address | Unknown | + + + | Phone | Unavailable | + + + Support + + +---------+ + | Name | Relationship | Address | Phone | + + +---------+ + | Elizabeth Damico | ECON | Unknown | | + + +---------+ + Care Team Providers + +------+ + | Care Rod Tape Operator Name | Role | Phone | [...] Clinic Dermatology | | | | | [facility] | [address] [facility] | | | | | and Healing, | [place] | | | | | [facility] | [address] | | | | | Floor [place], [place] | | | | | | [address] | | | | | | [phone] | | | +--------+ + + + [...] patchy | | | | | | [id number] skin, | | | | | | [...] [facility] | Mail[address] | [facility] [place] [address] | | | DERMATOPATHOLOGY | [address] | | | + + + + + documented in this encounter Visit Diagnoses + + | Diagnosis | + + | Neoplasm of uncertain behavior of skin | + + documented in this encounter
--- OUTSIDE RECORDS SUMMARY | ~2020-03-10 | XMS | Encounter Summary ---
Demographics + + + | Address | [address] | | | [place] [address] | + + + | Home Phone | | + + + | Preferred Language | Unknown | + + + | Marital Status | | + + + | Cheondoism Affiliation | 1041 | + + + | Race | Unknown | + + + | Ethnic Group | Unknown | + + + Author + + + | Author | [facility] | | | and [place] | + + + | Organization | [facility] | | | [...] [place] | | | | | [address] | | + + + + + | Scot Damico | ECON | [address] | | | | | [place] [address] | | + + + + + Care Team Providers + +------+ + | Care Activity Aide Name | Role | Phone | + [...] | | | | | | [place] [address] | | | | | | [phone] | | | +--------+ + + + [...] | | | [place] [address] | | | | | | [phone] | | | | | | | | +--------+---------+ + + + documented as of this encounter Visit Diagnoses + + | Diagnosis | + + | Cough - Primary | + + documented in this encounter"
--- OUTSIDE RECORDS SUMMARY | ~2020-03-10 | XMS | Encounter Summary ---
Demographics + + + | Address | [address] | | | [place] [address] | + + + | Home Phone | | + + + | Preferred Language | Unknown | + + + | Marital Status | | + + + | Mormon Affiliation | 1041 | + + + | Race | Unknown | + + + | Ethnic Group | Unknown | + + + Author + + + | Author | [facility] | | | and [place] | + + + | Organization | [facility] | | [...] [place] | | | | | [address] | | + + + + + | Scot Damico | ECON | [address] | | | | | [place] [address] | | + + + + + Care Team Providers + +------+ + | Care Hand Welt Butter Name | Role | Phone | + +------+ + | Ralph Chatman MD | PCP | | + +------+ + Encounter Details +--------+---------+ + + + | Date | Type | Department | Care Team | Description | +--------+---------+ + + + | 03/30/ | Surgery | [facility] | Theo Horan MD | ECHO TRANSESOPHAGEAL | | 2013 | | MED CTR CARDIAC | [address] [place] [address], | | | | | ADMIT AND RECOVERY | [place] [address] | | | | | [address] | [phone] | | | | | [place] | | | | | | [address] | | | | | | [phone] | | | +--------+---------+ + + + [...] 1:59 PM PDTPatient and fully acknowledge FLORENTIN robins ischarge instructions. Patient alert and oriented upon [...] D | | | | | | [place] [address] | | | | | | [phone] | | | | | | | [...] DAMICO Date: 03/30/2014 MRN: | | | [id number] Patient Location: [facility] | | | : 1935 Age: 78 [...] then | | | administered by the staff physical therapy assistant under my direction. Standard endoscopy | | [...] Ordering Physician: Theo HORAN | | | Aviation Medicine Specialist: Theo Horan MD [id number]: | | + + + + + | Procedure Note | + + | Jorje, Rad Results In - 03/30/2014 5:11 PM PDT | | Transesophageal | | Echo Report | | | | Name: IRAIDA DAMICO Date: 03/30/2014 | | Patient Location: [facility] | | : 1935 Age: 78 yrs [...] conscious sedation was then administered by the staff physical therapy assistant under my | | direction. Standard endoscopy [...] normal. | | | | Interpreting Physician: Theo Horan MD | | electronically signed on 03/30/2014 05:10 PM | | Ordering Physician: Theo HORAN | | Aviation Medicine Specialist: Theo Horan MD | | [id number]: | + + + +---------+ + + | Performing | Address | City/State/Zipcode | Phone Number | | Organization | | | | + +---------+ + + | [facility] | | | [phone] | + +---------+ + + | [facility] | | | [phone] | + +---------+ + + documented in [...] | | | | | Sedation, Starting Tu03/30/14 at | | PM PDT | | [...]
--- OUTSIDE RECORDS SUMMARY | ~2020-03-10 | XMS | Encounter Summary ---
Demographics + + + | Address | [address] | | | [place] [address] | + + + | Home Phone | | + + + | Preferred Language | Unknown | + + + | Marital Status | Single | + + + | Mormonism Affiliation | CAT | + + + [...] Team Providers + +------+ + | Care Heating And Refrigeration Inspector Name | Role | Phone | + +------+ + PCP | Unavailable | + +------+ + Encounter Details +--------+ + + + + | Date | Type | Department | Care Team | Description | +--------+ + + + + | 11/29/ | [facility] | | Letter, Clinic | Letters | | 2004 | scribed | | | | +--------+ + + [...] as of this encounter Progress Notes Interface, [place] - 2005 6:08 PM PDT [place] [address] [address] or November 29, 2003 Ralph Chatman M.D. [address] [address] RE: PRABHAKAR DAMICO MR #: [id number] Dear Dr. Chatman: It was our pleasure to evaluate Mr. Damico who is your patient. The Infectious Disease Team was consulted regarding Mr. Damico's epidural abscess. Mr. Damico developed fevers and back pain around November 20, 2003. He was evaluated and admitted to [facility] on November 22, 2003, where an MRI showed an epidural abscess in the L3-L4 region. He was transferred to [facility] on November 24, 2003, and underwent L4-L5 laminectomy as well as foraminotomy on November 25, 2002. Of note, his blood cultures from [facility] grew for the 4 bottles for Enterococcus faecalis. His blood cultures at [facility] are all negative today. Mr. Damico most likely had Enterococcus faecalis bacteremia which was the source of his epidural abscess. Our recommendation for the Neurosurgery Team was to start intervenous antibiotics with ampicillin as well as gentamycin. Ampicillin should be continued for a total of 6 weeks and should end on January 08, 2004. Gentamycin should be continued for a total of 2 weeks and should end on December 11, 2003. Mr. Damico's gentamycin peak levels should be from 3 to 4, which they have been while in the hospital. We recommend an additional peak level 1 week from today, which would be December 06, 2003. We would also recommend monitoring Mr. Damico's renal function while he is on IV ampicillin to ensure that it is not nephrotoxic. This can be done every week. We also recommend monitoring Mr. Damico's erythrocyte sedimentation rate every 2 weeks as well. While he was here, his ESR was 61. If it continues to trend down, then we know that we are adequately treating his epidural abscess. After Mr. Damico finishes his ampicillin course on January 08, 2004, he should then transition to p.o. amoxicillin to be given 1 g p.o. t.i.d. for a total of 3 months to end on April 08, 2004. The source of Mr. Damico's Enterococcus faecalis bacteremia should also be evaluated. This is normally a part of the gastrointestinal richie. We, therefore, recommend obtaining a colonoscopy as an outpatient to evaluate for any reasons why he would have bacteremia such as diverticulitis versus ulceration versus polyp versus colorectal cancer. It was our pleasure to see Mr. Damico. Please feel free to page either myself or Dr. Valdez with any questions. We can be reached to the [facility] kettle operator head: [phone]. Sincerely, MD Nabil Lundy MD / [id number] / [id number] / [id number] / Tdocumented in this encounter Plan of Treatment Not on filedocumented as of this encounter Visit Diagnoses Not on filedocumented in this encounter"
--- OUTSIDE RECORDS SUMMARY | ~2020-03-10 | XMS | Encounter Summary ---
Demographics + + + | Address | [address] | | | [place] [address] | + + + | Home Phone | | + + + | Preferred Language | Unknown | + + + | Marital Status | | + + + | Cheondoism Affiliation | 1041 | + + + | Race | Unknown | + + + | Ethnic Group | Unknown | + + + Author + + + | Author | [facility] | | | and [place] | + + + | Organization | [facility] | | [...] [place] | | | | | [address] | | + + + + + | cSot Damico | ECON | [address] | | | | | [place] [address] | | + + + + + Care Team Providers + +------+ + | Care Spool Maker Name | Role | Phone | + +------+ + PCP | Unavailable | + +------+ + Encounter Details +--------+ + + + + | Date | Type | Department | Care Team | Description | +--------+ + + + + | 11/21/ | Hospital | [facility] | Zeferino Reeves, | | | 2009 | Encounter | [facility] | [address] | | | | | CONVERSION | [address] | | | | | [address] | [place] [address] | | | | | [address] | [phone] | | | | | Lane, [place] | | | | | | [address] | | | | | | [phone] | | | +--------+ + + + [...] | | | [place] [address] | | | | | | [phone] | | | | | | | | +--------+---------+ + + + documented as of this encounter Procedures + +--------+ + + + | Procedure Name | Priori | Date/Time | Associated Diagnosis | Comments | | | ty | | | | + +--------+ + + + | HISTORICAL IMAGING | | 11/21/2009 | | Results for this | | RESULT | | 12:21 PM | | procedure are in the | | | | PST | | results section. | + +--------+ + + + documented in this encounter Results Historical Imaging Result (11/21/2009 12:21 PM PST) + + | Specimen | + + | | + + + + + | Narrative | Performed At | + + + | Exam Performed Location: [facility] | MISCELANIOUS | | RADIOGRAPHS OF THE CHEST CLINICAL INFORMATION: Pre operative for | LAB | | back surgery. Patient with congestion, fever and cough. | | | COMPARISON: No comparison. PROCEDURE: Frontal and lateral images | | | of the chest. FINDINGS: Patchy density is seen in the right | | | midlung field with associated linear density in the minor fissure. | | | Findings suggest potential consolidation with a small amount of | | | atelectasis or pleural fluid. The left lung is clear. | | | Cardiomediastinal silhouette is unremarkable. No evidence of | | | pneumothorax or free air is seen. IMPRESSION: Patchy density in | | | the right lung suggests consolidation and/or atelectasis. A small | | | amount of pleural fluid may also be present. Follow-up recommended | | | after treatment to confirm resolution. | | + + + + + | Procedure Note | + + | Jorje, Rad Conversion - 07/31/2013 8:51 PM PDT Exam Performed [facility]: [facility] | [facility]INICAL INFORMATION:Pre operative for | | back surgery. Patient with congestion, fever andcough.COMPARISON:No | | comparison.PROCEDURE:Frontal and lateral images of the chest.FINDINGS:Patchy density is | | seen in the right midlung field with associatedlinear density in the minor fissure. | | Findings suggest potentialconsolidation with a small amount of atelectasis or pleural | | fluid.The left lung is clear. Cardiomediastinal silhouette isunremarkable. No evidence | | of pneumothorax or free air is seen.IMPRESSION:Patchy density in the right lung | | suggests consolidation and/oratelectasis. A small amount of pleural fluid may also be | | present.Follow-up recommended after treatment to confirm resolution. | | | |PROCEDURE: | |Frontal and lateral images of the chest. | | | |FINDINGS: | |Patchy density is seen in the right midlung field with associated | |linear density in the minor fissure. Findings suggest potential | |consolidation with a small amount of atelectasis or pleural fluid. | | | |The left lung is clear. Cardiomediastinal silhouette is | |unremarkable. No evidence of pneumothorax or free air is seen. | | | |IMPRESSION: | |Patchy density in the right lung suggests consolidation and/or | |atelectasis. A small amount of pleural fluid may also be present. | |Follow-up recommended after treatment to confirm resolution. | + + + +---------+ + + | Performing | Address | City/State/Zipcode | Phone Number | | Organization | | | | + +---------+ + + | [facility] | | | [phone] | + +---------+ + + | [facility] | | | [phone] | + +---------+ + + documented in this encounter Visit Diagnoses Not on filedocumented in this encounter"
--- OUTSIDE RECORDS SUMMARY | ~2020-03-10 | XMS | Encounter Summary ---
Demographics + + + | Address | [address] | | | [place] [address] | + + + | Home Phone | | + + + | Preferred Language | Unknown | + + + | Marital Status | | + + + | Tenriism Affiliation | 1041 | + + + [...] [place] | | | | | [address] | | + + + + + | Scot Damico | ECON | [address] | | | | | [place] [address] | | + + + + + Care Team Providers + +------+ + | Care General Scrap Worker Name | Role | Phone | + +------+ + PCP | Unavailable | + +------+ + Encounter Details +--------+ + + + + | Date | Type | Department | Care Team | Description | +--------+ + + + + | 02/24/ | Hospital | [facility] | Unknown, | | | 2006 | Encounter | MED CTR XRAY [address] | MD [address]atima . | | | | | [place] | | | | | | [place] [address] | (Fax) | | | | | [phone] | | | +--------+ + + + [...] | | | [place] [address] | | | | | | [phone] | | | | | | | | +--------+---------+ + + + documented as of this encounter Visit Diagnoses Not on filedocumented in this encounter"
--- OUTSIDE RECORDS SUMMARY | ~2020-03-10 | XMS | Encounter Summary ---
Demographics + + + | Address | [address] | | | [place] [address] | + + + | Home Phone | | + + + | Preferred Language | Unknown | + + + | Marital Status | | + + + | Pentecostal Affiliation | 1041 | + + + [...] [place] | | | | | [address] | | + + + + + | Scot Damico | ECON | [address] | | | | | [place] [address] | | + + + + + Care Team Providers + +------+ + | Care Central Supply Clerk Name | Role | Phone | + +------+ + | Ralph Chatman MD | PCP | | + +------+ + Reason for Visit +---------+ + | Reason | Comments | +---------+ + | Post Op | AVR | +---------+ + Encounter Details +--------+---------+ + + + | Date | Type | Department | Care Team | Description | +--------+---------+ + + + | 08/20/ | Office | [facility] | Marylin Munoz, | S/P aortic valve | | 2012 | Visit | [facility] | PA-C [address] | replacement (Primary | | | | [facility] | [address] [place], [place] | Dx) | | | | [address] | [address] | | | | | [place], [place] | | | | | | [address] | | | | | | [phone] | | | +--------+---------+ + + + [...] this encounter Last Filed Vital Signs + +---------+ + + | Vital Sign | Reading | Time Taken | Comments | + +---------+ + + | Blood Pressure | 108/74 | 08/20/2013 12:26 PM | | | | | PST | | + +---------+ + + | Pulse | 61 | 08/20/2013 12:26 PM | | | | | PST | | + +---------+ + + | Temperature | - | - | | + +---------+ + + | Respiratory Rate | - | - | | + +---------+ + + | Oxygen Saturation | 98% | 08/20/2013 12:26 PM | | | | | PST | | + +---------+ + + | Inhaled Oxygen | - | - | | | Concentration | | | | + +---------+ + + | Weight | - | - | | + +---------+ + + | Height | - | - | | + +---------+ + + | Body Mass Index | - | - | | + +---------+ + + documented in this encounter Progress Notes Marylin Munoz PA-C - 08/20/2013 12:59 PM PSTFormatting of this note might be different f rom the original. [facility] CARDIACTHORACIC SURGERY OUTPATIENT POST-OP VISIT Pt. Name/Age/: Iraida Damico 78 y.o. 1935 Med. Record Number: [id number] Date of Service: 08/20/2013 Procedure: Aortic Valve Replacement: 27mm Medtronic Gonzalez II Bioprosthesis valve Date of Surgery: 07/08/2013 Postop complications: Cough, improving Subjective: The chart and medications were reviewed in detail. The patient was interviewe d and examined. Patient is gradually resuming normal daily activities and reports no fevers, shortness of b reath or palpitations. No readmissions, has been walking up to 45 minutes daily. Objective: BP: 108/74 mmHg Pulse: 61 SpO2: 98 % on On room air Exam: General: Alert and oriented times three, no acute distress Heart: regular rhythm, no rub, no murmur Respiratory: Normal inspiratory effort, clear and equal breath sounds Abdomen: Soft and nontender Extremities: warm without pain and edema Incisions: clean, dry, intact Sternum: stable Assessment: Recent tissue AVR Recovering as expected. Plan: Follow up with cardiology Restrictions and limitations were discussed. No heavy lifting for 1 months. Follow up as directed with cardiology and primary care. Electronically signed by: Marylin Munoz, 08/20/2013 13:00 Marylin Munoz PA-c Cardiothoracic Surgery [facility] [address] [place] [address] documented in this encounter Plan of Treatment +--------+---------+ + + + | Date | Type | Specialty | Care Team | Description | +--------+---------+ + + + | 05/02/ | Office | Neurology | Dada Goodwin, | | | 2019 | Visit | | MD Gabriel [address] | | | | | | [address] | | | | | | [place] [address] | | | | | | [phone] | | | | | | | | +--------+---------+ + + + documented as of this encounter Visit Diagnoses + + | Diagnosis | + + | S/P aortic valve replacement - Primary Heart valve replaced by other means | + + documented in this encounter"
--- OUTSIDE RECORDS SUMMARY | ~2020-03-10 | XMS | Encounter Summary ---
Demographics + + + | Address | [address] | | | [place] [address] | + + + | Home Phone | | + + + | Preferred Language | Unknown | + + + | Marital Status | | + + + | Christianity Affiliation | 1041 | + + + | Race | Unknown | + + + | Ethnic Group | Unknown | + + + Author + + + | Author | [facility] | | | and [place] | + + + | Organization | [facility] | | | and [...] [place] | | | | | [address] | | + + + + + | Scot Damico | ECON | [address] | | | | | [place] [address] | | + + + + + Care Team Providers + +------+ + | Care Disassembler Product Name | Role | Phone | + [...] + | 01/26/ | Office | [facility] | [place], | Panlobular emphysema | | 2016 | Visit | PULMONARY [address] | Irina Sofia MD | ([facility]) (Primary Dx); | | | | [place], | | Pulmonary nodules; | | | | [place] [address] | | Incomplete AV heart | | | | [phone] | | block; PANCHITO | | | [...] The sleep center has a PA, Scot Black who can do that. documented in this [...] to a mile, and he stops about care home on a bridge and w atches [...] left nipple COPD (chronic obstructive pulmonary disease) ([facility]) Cataract bilateral Acid reflux disease Arthritis neck [...] Laterality: N/A; Surgeon: Theo Garza MD; Location: [facility] Other surgical history N/A 01/18/2016 Procedure: EP STUDY POSS ABLATION ; Surgeon: Jude Agrawal MD; Location: [facility] ELECTR OPHYSIOLOGY Pacemaker placement N/A 01/19/2016 Procedure: PLACEMENT - PACEMAKER LEAD DUAL PATIENT WILL BE IN HOUSE; Surgeon: Jude Agrawal MD; Location: [facility] ELECTROPHYSIOLOGY Social History: History Social History [...] Narrative Lives: [place] With: his Grew up: [facility] Has previously lived in: [place], [place], born in [place] Exposure to toxic chemicals: possibly as a [...] tablet Take 325 mg by mouth Daily. Kpshhcp-Hawtgknarvydv-Acgixfjc (EXCEDRIN MIGRAINE PO) Take 1 tablet by [...] made to ensure accuracy; however, inadvertent computerized learning design specialist errors may be pre sent. documented in [...] | | | [place] [address] | | | | | | [phone] | | | | | | | [...]
--- OUTSIDE RECORDS SUMMARY | ~2020-03-10 | XMS | Encounter Summary ---
Demographics + + + | Address | [address] | | | [place] [address] | + + + | Home Phone | | + + + | Preferred Language | Unknown | + + + | Marital Status | | + + + | Pentecostalism Affiliation | 1041 | + + + [...] [place] | | | | | [address] | | + + + + + | Scot Damico | ECON | [address] | | | | | [place] [address] | | + + + + + Care Team Providers + +------+ + | Care Dielectric Embossing Machine Operator Name | Role | Phone | + +------+ + | Ralph Chatman MD | PCP | | + +------+ + Reason for Visit +---------+ + | Reason | Comments | +---------+ + | Results | Overnight pulse oximetry results | +---------+ + Encounter Details +--------+ + + + + | Date | Type | Department | Care Team | Description | +--------+ + + + + | 08/11/ | Telephone | [facility] | [place], | Results (Overnight | | 2013 | | PULMONARY [address] | Irina Sofia MD | pulse oximetry | | | | [place], | | results) | | | | [place] [address] | | | | | | [phone] | | | +--------+ + + + [...] 2019 | Visit | | MD Gabriel [address] | | | | | | [address] | | | | | | [place] [address] | | | | | | [phone] | | | | | | | | +--------+---------+ + + + documented as of this encounter Visit Diagnoses Not on filedocumented in this encounter"
--- OUTSIDE RECORDS SUMMARY | ~2020-03-10 | XMS | Encounter Summary ---
Demographics + + + | Address | [address] | | | [place] [address] | + + + | Home Phone | | + + + | Preferred Language | Unknown | + + + | Marital Status | Single | + + + | Buddhism Affiliation | CAT | + + + [...] Team Providers + +------+ + | Care Engineering Systems Analyst Name | Role | Phone | + +------+ + PCP | Unavailable | + +------+ + Encounter Details +--------+ + + + + | Date | Type | Department | Care Team | Description | +--------+ + + + + | 11/25/ | Results | Neurosurgery 3250 | Maria C Vences MD | | | 2003 | Only | [facility] | [address] | | | | | Amilcar Mailcode:[id number] | [place], [place] | | | | | [employer] | [address] | | | | | [place], [place] | [phone] | | | | | [address] | | | | | | [phone] | | | +--------+ + + + [...] + +--------+ + + + | X-RAY SPINE | Routin | 01/27/2004 | | Results for this | | LUMBOSACRAL 1 VIEW | e | 4:30 PM | | procedure are in the | | | | PDT | | results section. | + +--------+ + + + | X-RAY SPINE | Routin | 12/16/2003 | | Results for this | | LUMBOSACRAL 2 VIEWS | e | 1:47 PM | | procedure are in the | | | | PST | | results section. | + +--------+ + + + | BASIC METABOLIC SET | Routin | 12/01/2003 | | Results for this | | (NA, K, CL, TCO2, | e | 7:15 AM | | procedure are in the | | BUN, CR, GLU, CA) | | PST | | results section. | + +--------+ + + + | CBC ONLY | Routin | 11/30/2003 | | Results for this | | | e | 10:45 AM | | procedure are in the | | | | PST | | results section. | + +--------+ + + + | BASIC METABOLIC SET | Routin | 11/30/2003 | | Results for this | | (NA, K, CL, TCO2, | e | 5:30 AM | | procedure are in the | | BUN, CR, GLU, CA) | | PST | | results section. | + +--------+ + + + | BASIC METABOLIC SET | Routin | 11/26/2003 | | Results for this | | (NA, K, CL, TCO2, | e | 7:27 AM | | procedure are in the | | BUN, CR, GLU, CA) | | PST | | results section. | + +--------+ + + + | CBC ONLY | Routin | 11/26/2003 | | Results for this | | | e | 7:27 AM | | procedure are in the | | | | PST | | results section. | + +--------+ + + + | SEDIMENTATION RATE | Routin | 11/26/2003 | | Results for this | | | e | 7:27 AM | | procedure are in the | | | | PST | | results section. | + +--------+ + + + | INR | Routin | 11/25/2003 | | Results for this | | | e | 5:30 AM | | procedure are in the | | | | PST | | results section. | + +--------+ + + + | APTT (ACT. PART. | Routin | 11/25/2003 | | Results for this | | THROMBO TIME) | e | 5:30 AM | | procedure are in the | | | | PST | | results section. | + +--------+ + + + | X-RAY CHEST 1 VIEW | Routin | 11/25/2003 | | Results for this | | | e | 4:34 AM | | procedure are in the | | | | PST | | results section. | + +--------+ + + + | CULTURE, BLOOD BACTI | Routin | 11/25/2003 | | Results for this | | & YEAST | e | 4:15 AM | | procedure are in the | | | | PST | | results section. | + +--------+ + + + | DIFFERENTIAL | Routin | 11/25/2003 | | Results for this | | | e | 4:10 AM | | procedure are in the | | | | PST | | results section. | + +--------+ + + + | CBC, WITH | Routin | 11/25/2003 | | Results for this | | DIFFERENTIAL | e | 4:10 AM | | procedure are in the | | | | PST | | results section. | + +--------+ + + + | COMPLETE METABOLIC | Routin | 11/25/2003 | | Results for this | | SET | e | 4:10 AM | | procedure are in the | | (NA,K,CL,CO2,BUN,CRE | | PST | | results section. | | AT,GLUC,CA,AST,ALT,B | | | | | | CASEY TOTAL,ALK | | | | | | PHOS,ALB,PROT TOTAL) | | | | | + +--------+ + + + | CULTURE, BLOOD BACTI | Routin | 11/25/2003 | | Results for this | | & YEAST | e | 4:10 AM | | procedure are in the | | | | PST | | results section. | + +--------+ + + + documented in this encounter Results SPINE LUMBOSACRAL 1 VIEW (01/27/2004 4:30 PM PDT) + + + + + + | Component | Value | Ref Range | Performed | Pathologist | | | | | At | Signature | + + + + + + | SPINE | Radiologist 1: | | | | | LUMBOSACRAL | RONY COYLE, | | | | | 1 VIEW | M.D.STUDY: Lateral | | | | | | lumbar spine. | | | | | | COMPARISON: 12/16/03 and | | | | | | 11/28/03. DISCUSSION: | | | | | | Marked disc space | | | | | | narrowing is noted at | | | | | | L3-4 with | | | | | | indistinctnessof | | | | | | endplates, and with | | | | | | unchanged appearance | | | | | | compared to 12/16/03.In | | | | | | addition there is | | | | | | further narrowing at the | | | | | | L4-5 disc space | | | | | | withinterval development | | | | | | of grade one | | | | | | spondylolisthesis and | | | | | | focalkyphosis at L4 on | | | | | | L5. There is apparent | | | | | | mild indistinctness | | | | | | ofendplates at L4-5. | | | | | | Persistent disc space | | | | | | narrowing with endplate | | | | | | sclerosis andosteophyte | | | | | | formation are noted at | | | | | | L5-S1. The | | | | | | laminectomies fromL3 to | | | | | | L5 are not fully | | | | | | evaluated on the study. | | | | | | The patient is jannette brace | | | | | | on one of the images. | | | | | | IMPRESSION: 1. | | | | | | Persistent disc space | | | | | | narrowing and | | | | | | indistinctness | | | | | | ofendplates at L3-4 | | | | | | unchanged compared to | | | | | | 12/16/03, however | | | | | | withprogression compared | | | | | | to 11/28/03. 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 An | | | | | | MRI is suggested for | | | | | | furtherevaluation. 2. | | | | | | Grade one | | | | | | spondylolisthesis and | | | | | | development of focal | | | | | | kyphosisas well as | | | | | | indistinctness of | | | | | | endplates at L4-5 may | | | | | | representseptic | | | | | | spondylitis. 3. Severe | | | | | | degenerative disc | | | | | | disease and L5-S1. | | | | + + + + + + + + | Specimen | + + | | + + + +---------+ + + | Performing | Address | City/State/Zipcode | Phone Number | | Organization | | | | + +---------+ + + | [facility] DEPARTMENT OF | | | | | RADIOLOGY | | | | + +---------+ + + SPINE LUMBOSACRAL 2 VIEWS (12/16/2003 1:47 PM PST) + + + + + + | Component | Value | Ref Range | Performed | Pathologist | | | | | At | Signature | + + + + + + | SPINE | Radiologist 1: | | | | | LUMBOSACRAL | RONY COYLE, | | | | | 2 VIEWS | M.D.-Radiologist 2: | | | | | | RONY COYLE, | | | | | | M.D.STUDY: AP and | | | | | | lateral lumbar spine | | | | | | 12/16/03 COMPARISON: | | | | | | 11/28/03. HISTORY: | | | | | | History of epidural | | | | | | abscess. FINDINGS: The | | | | | | patient is imaged in a | | | | | | brace. The exam is | | | | | | severely limited | | | | | | withfaint visualization | | | | | | of the vertebral bodies | | | | | | and disc spaces. | | | | | | Therehave been complete | | | | | | laminectomies at L3, L4 | | | | | | and a partial | | | | | | laminectomyat L5. | | | | | | There appears to be | | | | | | progressive narrowing of | | | | | | the L3-4 discspace. | | | | | | The end plates are not | | | | | | fully evaluated. The | | | | | | vertebral bodyheights | | | | | | appear to be maintained. | | | | | | There is mild | | | | | | levoscoliosis. | | | | | | IMPRESSION: 1. | | | | | | Severely limited | | | | | | radiograph of the lumbar | | | | | | spine. There | | | | | | doesappear to be | | | | | | progressive narrowing of | | | | | | the L3-L4 disc space. | | | | | | The endplates are not | | | | | | fully evaluated. Given | | | | | | the patient's history, | | | | | | discitisis of concern. | | | | | | If clinically | | | | | | indicated suggest an MRI | | | | | | to betterevaluate. | | | | | | END IMPRESSION | | | | + + + + + + + + | Specimen | + + | | + + + +---------+ + + | Performing | Address | City/State/Zipcode | Phone Number | | Organization | | | | + +---------+ + + | [facility] DEPARTMENT OF | | | | | RADIOLOGY | | | | + +---------+ + + BASIC METABOLIC SET (12/01/2003 7:15 AM PST) + +---------+ + + + | Component | Value | Ref Range | Performed | Pathologist | | | | | At | Signature | + +---------+ + + + | GLUCOSE, | 119 (H) | 65 - 110 mg/dL | [facility] | | | PLASMA | | | DEPARTMENT | | | (LAB) | | | OF | | | | | | PATHOLOGY | | + +---------+ + + + | BUN, PLASMA | 12 | 6 - 20 mg/dL | [facility] | | | (LAB) | | | DEPARTMENT | | | | | | OF | | | | | | PATHOLOGY | | + +---------+ + + + | CREATININE | 0.7 | 0.7 - 1.3 mg/dL | [facility] | | | PLASMA | | | DEPARTMENT | | | (LAB) | | | OF | | | | | | PATHOLOGY | | + +---------+ + + + | SODIUM, | 136 | 136 - 145 | [facility] | | | PLASMA | | mmol/L | DEPARTMENT | | | (LAB) | | | OF | | | | | | PATHOLOGY | | + +---------+ + + + | POTASSIUM, | 4.0 | 3.5 - 5.1 | [facility] | | | PLASMA | | mmol/L | DEPARTMENT | | | (LAB) | | | OF | | | | | | PATHOLOGY | | + +---------+ + + + | CHLORIDE, | 103 | 98 - 107 mmol/L | [facility] | | | PLASMA | | | DEPARTMENT | | | (LAB) | | | OF | | | | | | PATHOLOGY | | + +---------+ + + + | TOTAL CO2, | 29 | 23 - 29 mmol/L | [facility] | | | PLASMA | | | DEPARTMENT | | | (LAB) | | | OF | | | | | | PATHOLOGY | | + +---------+ + + + | CALCIUM, | 8.5 | 8.5 - 10.5 | [facility] | [...] | + + + + + | [facility] | [address] [facility] [facility] | [place] [address] | | | PATHOLOGY | [address] | | | + + + + + | [facility] | [facility] [facility] | [place] [address] | | | PATHOLOGY | [address] | | | + + + + + CBC ONLY WITH PLATELET (11/30/2003 10:45 AM PST) + + + + + + | Component | Value | Ref Range | Performed | Pathologist | | | | | At | Signature | + + + + + + | WHITE CELL | 18.7 (H) | 4.4 - 11.0 K/cu | [facility] | | | COUNT | | mm | DEPARTMENT | | | | | | OF | | | | | | PATHOLOGY | | + + + + + + | RED CELL | 3.62 (L) | 4.20 - 5.90 | [facility] | | | COUNT | | M/cu mm | DEPARTMENT | | | | | | OF | | | | | | PATHOLOGY | | + + + + + + | HEMOGLOBIN | 9.7 (L) | 13.0 - 17.5 | [facility] | | | | | g/dL | DEPARTMENT | | | | | | OF | | | | | | PATHOLOGY | | + + + + + + | HEMATOCRIT | 29.3 (L) | 38.0 - 50.4 % | [facility] | | | | | | DEPARTMENT | | | | | | OF | | | | | | PATHOLOGY | | + + + + + + | MCV | 80.9 | 80.0 - 96.0 fL | [facility] | | | | | | DEPARTMENT | | | | | | OF | | | | | | PATHOLOGY | | + + + + + + | MCH | 26.8 (L) | 28.5 - 32.3 pg | [facility] | | | | | | DEPARTMENT | | | | | | OF | | | | | | PATHOLOGY | | + + + + + + | MCHC | 33.1 (L) | 33.4 - 35.5 | [facility] | | | | | g/dL | DEPARTMENT | | | | | | OF | | | | | | PATHOLOGY | | + + + + + + | RDW | 14.9 | 11.5 - 15.0 % | [facility] | | | | | | DEPARTMENT | | | | | | OF | | | | | | PATHOLOGY | | + + + + + + | PLATELET | 643 (H) | 150 - 400 K/cu | [facility] | | | COUNT | | mm | DEPARTMENT | | | | | | OF | | | | | | PATHOLOGY | | + + + + + + | MPV | 7.1 (L) | 7.4 - 10.4 fL | [facility] | | | | | | DEPARTMENT | | | | | | OF | | | | | | PATHOLOGY | | + + + + + + + + | Specimen | + + | | + + + + + + + | Performing | Address | City/State/Zipcode | Phone Number | | Organization | | | | + + + + + | [facility] DEPARTMENT OF | [address] | [place] [address] | | | PATHOLOGY | [address] | | | + + + + + | [facility] DEPARTMENT OF | [address] | [place] [address] | | | PATHOLOGY | [address] | | | + + + + + BASIC METABOLIC SET (11/30/2003 5:30 AM PST) + +---------+ + + + | Component | Value | Ref Range | Performed | Pathologist | | | | | At | Signature | + +---------+ + + + | GLUCOSE, | 110 | 65 - 110 mg/dL | [facility] [...] +---------+ + + + | SODIUM, | 134 (L) | 136 - 145 | [facility] | | | PLASMA | | mmol/L | DEPARTMENT | | | (LAB) | | | OF | | | | | | PATHOLOGY | | + +---------+ + + + | POTASSIUM, | 3.9 | 3.5 - 5.1 | [facility] | [...] + + + | TOTAL CO2, | 30 (H) | 23 - 29 mmol/L | [facility] | | | PLASMA | | | DEPARTMENT | | | (LAB) | | | OF | | | | | | PATHOLOGY | | + +---------+ + + + | CALCIUM, | 8.4 (L) | 8.5 - 10.5 | [facility] | [...] | + + + + + | [facility] | [address] [facility] | [place] [address] | | | PATHOLOGY | [address] | | | + + + + + | [facility] | [address] [place] [address] | [place] [address] | | | PATHOLOGY | [address] | | | + + + + + SEDIMENTATION RATE (11/26/2003 7:27 AM PST) + +--------+ + + + | Component | Value | Ref Range | Performed | Pathologist | | | | | At | Signature | + +--------+ + + + | SEDIMENTATI | 62 (H) | <21 mm/hr | [facility] | | | ON RATE | | | DEPARTMENT | | | | | | OF | | | | | | PATHOLOGY | | + +--------+ + + + + + | Specimen | + + | | + + + + + + + | Performing | Address | City/State/Zipcode | Phone Number | | Organization | | | | + + + + + | [facility] DEPARTMENT OF | [address] | [place] [address] | | | PATHOLOGY | [address] | | | + + + + + | [facility] DEPARTMENT OF | [address] | [place], [place] [address] | | | PATHOLOGY | [address] | | | + + + + + CBC ONLY WITH PLATELET (11/26/2003 7:27 AM PST) + + + + + + | Component | Value | Ref Range | Performed | Pathologist | | | | | At | Signature | + + + + + + | WHITE CELL | 10.7 | 4.4 - 11.0 K/cu | [facility] | | | COUNT | | mm | DEPARTMENT | | | | | | OF | | | | | | PATHOLOGY | | + + + + + + | RED CELL | 3.33 (L) | 4.20 - 5.90 | [facility] | | | COUNT | | M/cu mm | DEPARTMENT | | | | | | OF | | | | | | PATHOLOGY | | + + + + + + | HEMOGLOBIN | 9.0 (L) | 13.0 - 17.5 | [facility] | | | | | g/dL | DEPARTMENT | | | | | | OF | | | | | | PATHOLOGY | | + + + + + + | HEMATOCRIT | 26.9 (L) | 38.0 - 50.4 % | [facility] | | | | | | DEPARTMENT | | | | | | OF | | | | | | PATHOLOGY | | + + + + + + | MCV | 80.8 | 80.0 - 96.0 fL | [facility] | | | | | | DEPARTMENT | | | | | | OF | | | | | | PATHOLOGY | | + + + + + + | MCH | 27.2 (L) | 28.5 - 32.3 pg | [facility] | | | | | | DEPARTMENT | | | | | | OF | | | | | | PATHOLOGY | | + + + + + + | MCHC | 33.6 | 33.4 - 35.5 | [facility] | | | | | g/dL | DEPARTMENT | | | | | | OF | | | | | | PATHOLOGY | | + + + + + + | RDW | 14.2 | 11.5 - 15.0 % | [facility] | | | | | | DEPARTMENT | | | | | | OF | | | | | | PATHOLOGY | | + + + + + + | PLATELET | 464 (H) | 150 - 400 K/cu | [facility] | | | COUNT | | mm | DEPARTMENT | | | | | | OF | | | | | | PATHOLOGY | | + + + + + + | MPV | 7.5 | 7.4 - 10.4 fL | [facility] | | | | | | DEPARTMENT | | | | | | OF | | | | | | PATHOLOGY | | + + + + + + + + | Specimen | + + | | + + + + + + + | Performing | Address | City/State/Zipcode | Phone Number | | Organization | | | | + + + + + | [facility] | [facility] | [place] [address] | | | PATHOLOGY | [address] | | | + + + + + | [facility] DEPARTMENT OF | [address] | [place] [address] | | | PATHOLOGY | [address] | | | + + + + + BASIC METABOLIC SET (11/26/2003 7:27 AM PST) + +---------+ + + + | Component | Value | Ref Range | Performed | Pathologist | | | | | At | Signature | + +---------+ + + + | GLUCOSE, | 122 (H) | 65 - 110 mg/dL | [...] +---------+ + + + | CREATININE | 0.9 | 0.7 - 1.3 mg/dL | [facility] | | | PLASMA | | | DEPARTMENT | | | (LAB) | | | OF | | | | | | PATHOLOGY | | + +---------+ + + + | SODIUM, | 132 (L) | 136 - 145 | [facility] | | | PLASMA | | mmol/L | DEPARTMENT | | | (LAB) | | | OF | | | | | | PATHOLOGY | | + +---------+ + + + | POTASSIUM, | 3.9 | 3.5 - 5.1 | [facility] | | | PLASMA | | mmol/L | DEPARTMENT | | | (LAB) | | | OF | | | | | | PATHOLOGY | | + +---------+ + + + | CHLORIDE, | 97 (L) | 98 - 107 mmol/L | [facility] | | | PLASMA | | | DEPARTMENT | | | (LAB) | | | OF | | | | | | PATHOLOGY | | + +---------+ + + + | TOTAL CO2, | 29 | 23 - 29 mmol/L | [facility] [...] | + + + + + | [facility] DEPARTMENT OF | [address] | [place] [address] | | | PATHOLOGY | [address] | | | + + + + + | [facility] DEPARTMENT OF | [address] | [place] [address] | | | PATHOLOGY | [address] | | | + + + + + PROTHROMBIN TIME (11/25/2003 5:30 AM PST) + + + + + + | Component | Value | Ref Range | Performed | Pathologist | | | | | At | Signature | + + + + + + | INR | 1.18Comment: | 0.90 - 1.20 INR | [facility] | | | | PT INR Therapeutic | | DEPARTMENT | | | | ranges for full | | OF | | | | anticoagulation: | | PATHOLOGY | | | | INR for | | | | | | Venous Thromboembolism | | | | | | | | | | | | (2.0-3.0)INR | | | | | | INR for most | | | | | | patients with mech. | | | | | | valves (2.5-3.5)INR | | | | + + + + + + + + | Specimen | + + | | + + + + + + + | Performing | Address | City/State/Zipcode | Phone Number | | Organization | | | | + + + + + | [facility] DEPARTMENT OF | [facility] [facility] | [place] [address] | | | PATHOLOGY | [address] | | | + + + + + | [facility] DEPARTMENT OF | [facility] [facility] | [place] [address] | | | PATHOLOGY | [address] | | | + + + + + APTT (ACT. PART. THROMBO TIME) (11/25/2003 5:30 AM PST) + + + + + + | Component | Value | Ref Range | Performed | Pathologist | | | | | At | Signature | + + + + + + | APTT | 36.6 (H)Comment: | 26.0 - 36.0 | [facility] | | | | APTT Therapeutic | seconds | DEPARTMENT | | | | Range | | OF | | | | | | PATHOLOGY | | | | (75-120)sec | | | | | | Heparin levels | | | | | | of 0.35-0.7 U/mL | | | | + + + + + + + + | Specimen | + + | | + + + + + + + | Performing | Address | City/State/Zipcode | Phone Number | | Organization | | | | + + + + + | [facility] | [address] | [place] [address] | | | PATHOLOGY | [address] | | | + + + + + | [facility] | [address] [facility] | [place] [address] | | | PATHOLOGY | [address] | | | + + + + + CHEST 1 VIEW (11/25/2003 4:34 AM PST) + + + + + + | Component | Value | Ref Range | Performed | Pathologist | | | | | At | Signature | + + + + + + | CHEST, 1 | Radiologist 1: SERVANDO, | | | | | VIEW | Isidoro TALAMANTESEXAM: PA | | | | | | Chest COMPARISON: None. | | | | | | FINDINGS: The cardiac | | | | | | and mediastinal contours | | | | | | are normal. Thelungs | | | | | | are clear. IMPRESSION: | | | | | | Normal. | | | | | |IMPRESSION: | | | | | | | | | | | |Normal. | | | | | | | | | | | | | | | | + + + + + + + + | Specimen | + + | | + + + +---------+ + + | Performing | Address | City/State/Zipcode | Phone Number | | Organization | | | | + +---------+ + + | [facility] DEPARTMENT OF | | | | | RADIOLOGY | | | | + +---------+ + + CULT, BLOOD QUE & VICKEY (11/25/2003 4:15 AM PST) + + + + + + | Component | Value | Ref Range | Performed | Pathologist | | | | | At | Signature | + + + + + + | SOURCE BODY | Blood, Left Hand | | | | | SITE | | | | | + + + + + + | CULTURE | Blood Culture | | | | | RESULT | | | | | | | Source.................. | | | | | | : Blood, Left Hand | | | | | | Preliminary | | | | | | Report......: Blood | | | | | | Culture Received. No | | | | | | Growth to Date. | | | | | | Culture | | | | | | Report............: | | | | | | Final Report: No | | | | | | Bacteria or Yeast | | | | | | | | | | | | | | | | | | isolated at 5 days. | | | | + + + + + + + + | Specimen | + + | | + + + + + + + | Performing | Address | City/State/Zipcode | Phone Number | | Organization | | | | + + + + + | [facility] | [address] | [place] [address] | | | LAB-MICRO | | | | + + + + + SUZI MARAVILLA (11/25/2003 4:10 AM PST) + + + + + + | Component | Value | Ref Range | Performed | Pathologist | | | | | At | Signature | + + + + + + | SOURCE BODY | Blood Right Hand | | | | | SITE | | | | | + + + + + + | CULTURE | Blood Culture | | | | | RESULT | | | | | | | Source.................. | | | | | | : Blood Right Hand | | | | | | Preliminary | | | | | | Report......: Blood | | | | | | Culture Received. No | | | | | | Growth to Date. | | | | | | Culture | | | | | | Report............: | | | | | | Final Report: No | | | | | | Bacteria or Yeast | | | | | | | | | | | | | | | | | | isolated at 5 days. | | | | + + + + + + + + | Specimen | + + | | + + + + + + + | Performing | Address | City/State/Zipcode | Phone Number | | Organization | | | | + + + + + | [facility] | [address] | [place] [address] | | | LAB-MICRO | | | | + + + + + DIFFERENTIAL (11/25/2003 4:10 AM PST) + +---------+ + + + | Component | Value | Ref Range | Performed | Pathologist | | | | | At | Signature | + +---------+ + + + | NEUTROPHIL | 81 (H) | 50 - 70 % | [facility] | | | % | | | DEPARTMENT | | | | | | OF | | | | | | PATHOLOGY | | + +---------+ + + + | LYMPHOCYTE | 11 (L) | 18 - 42 % | [facility] | | | % | | | DEPARTMENT | | | | | | OF | | | | | | PATHOLOGY | | + +---------+ + + + | MONOCYTE % | 7 | 2 - 8 % | [facility] | | | | | | DEPARTMENT | | | | | | OF | | | | | | PATHOLOGY | | + +---------+ + + + | EOS % | 1 | 1 - 3 % | [facility] | | | | | | DEPARTMENT | | | | | | OF | | | | | | PATHOLOGY | | + +---------+ + + + | BASO % | 1 | <3 % | [facility] | | | | | | DEPARTMENT | | | | | | OF | | | | | | PATHOLOGY | | + +---------+ + + + | NEUTROPHIL | 8.6 (H) | 1.8 - 7.7 K/cu | [facility] | | | # | | mm | DEPARTMENT | | | | | | OF | | | | | | PATHOLOGY | | + +---------+ + + + | LYMPHOCYTE | 1.2 | 1.0 - 4.8 K/cu | [facility] | | | # | | mm | DEPARTMENT | | | | | | OF | | | | | | PATHOLOGY | | + +---------+ + + + | MONOCYTE # | 0.7 (H) | 0.1 - 0.6 K/cu | [facility] | | | | | mm | DEPARTMENT | | | | | | OF | | | | | | PATHOLOGY | | + +---------+ + + + | EOS # | 0.1 | <0.6 K/cu mm | [facility] | | | | | | DEPARTMENT | | | | | | OF | | | | | | PATHOLOGY | | + +---------+ + + + | BASO # | 0.1 | <0.2 | [facility] | | | | | | DEPARTMENT | | | | | | OF | | | | | | PATHOLOGY | | + +---------+ + + + + + | Specimen | + + | | + + + + + + + | Performing | Address | City/State/Zipcode | Phone Number | | Organization | | | | + + + + + | [facility] DEPARTMENT OF | [id number] | [place] [address] | | | PATHOLOGY | [address] | | | + + + + + | [facility] DEPARTMENT OF | [address] | [place] [address] | | | PATHOLOGY | [address] | | | + + + + + CBC, WITH DIFFERENTIAL (11/25/2003 4:10 AM PST) + + + + + + | Component | Value | Ref Range | Performed | Pathologist | | | | | At | Signature | + + + + + + | WHITE CELL | 10.6 | 4.4 - 11.0 K/cu | [facility] | | | COUNT | | mm | DEPARTMENT | | | | | | OF | | | | | | PATHOLOGY | | + + + + + + | RED CELL | 3.76 (L) | 4.20 - 5.90 | [facility] | | | COUNT | | M/cu mm | DEPARTMENT | | | | | | OF | | | | | | PATHOLOGY | | + + + + + + | HEMOGLOBIN | 10.0 (L) | 13.0 - 17.5 | [facility] | | | | | g/dL | DEPARTMENT | | | | | | OF | | | | | | PATHOLOGY | | + + + + + + | HEMATOCRIT | 30.4 (L) | 38.0 - 50.4 % | [facility] | | | | | | DEPARTMENT | | | | | | OF | | | | | | PATHOLOGY | | + + + + + + | MCV | 80.6 | 80.0 - 96.0 fL | [facility] | | | | | | DEPARTMENT | | | | | | OF | | | | | | PATHOLOGY | | + + + + + + | MCH | 26.6 (L) | 28.5 - 32.3 pg | [facility] | | | | | | DEPARTMENT | | | | | | OF | | | | | | PATHOLOGY | | + + + + + + | MCHC | 32.9 (L) | 33.4 - 35.5 | [facility] | | | | | g/dL | DEPARTMENT | | | | | | OF | | | | | | PATHOLOGY | | + + + + + + | RDW | 14.3 | 11.5 - 15.0 % | [facility] | | | | | | DEPARTMENT | | | | | | OF | | | | | | PATHOLOGY | | + + + + + + | PLATELET | 461 (H) | 150 - 400 K/cu | [facility] | | | COUNT | | mm | DEPARTMENT | | | | | | OF | | | | | | PATHOLOGY | | + + + + + + | MPV | 7.6 | 7.4 - 10.4 fL | [facility] | | | | | | DEPARTMENT | | | | | | OF | | | | | | PATHOLOGY | | + + + + + + + + | Specimen | + + | | + + + + + + + | Performing | Address | City/State/Zipcode | Phone Number | | Organization | | | | + + + + + | [facility] | [address] | [place] [address] | | | PATHOLOGY | [address] | | | + + + + + | [facility] | [address] [place] [address] | [place] [address] | | | PATHOLOGY | [address] | | | + + + + + COMP METABOLIC SET (11/25/2003 4:10 AM PST) + +---------+ + + + | Component | Value | Ref Range | Performed | Pathologist | | | | | At | Signature | + +---------+ + + + | GLUCOSE, | 119 (H) | 65 - 110 mg/dL | [facility] | | | PLASMA | | | DEPARTMENT | | | (LAB) | | | OF | | | | | | PATHOLOGY | | + +---------+ + + + | BUN, PLASMA | 10 | 6 - 20 mg/dL | [facility] [...] + +---------+ + + + | TOTAL | 5.3 (L) | 6.1 - 7.9 g/dL | [facility] | | | PROTEIN, | | | DEPARTMENT | | | PLASMA | | | OF | | | (LAB) | | | PATHOLOGY | | + +---------+ + + + | ALBUMIN, | 2.2 (L) | 3.5 - 4.7 g/dL | [facility] | | | PLASMA | | | DEPARTMENT | | | (LAB) | | | OF | | | | | | PATHOLOGY | | + +---------+ + + + | CALCIUM, | 9.1 | 8.5 - 10.5 | [facility] | | | PLASMA | | mg/dL | DEPARTMENT | | | (LAB) | | | OF | | | | | | PATHOLOGY | | + +---------+ + + + | BILIRUBIN | 0.7 | 0.3 - 1.2 mg/dL | [facility] | | | TOTAL | | | DEPARTMENT | | | | | | OF | | | | | | PATHOLOGY | | + +---------+ + + + | ALK PHOS | 83 | 56 - 119 U/L | [facility] | | | | | | DEPARTMENT | | | | | | OF | | | | | | PATHOLOGY | | + +---------+ + + + | AST(SGOT) | 25 | 15 - 41 U/L | [facility] | | | | | | DEPARTMENT | | | | | | OF | | | | | | PATHOLOGY | | + +---------+ + + + | SODIUM, | 136 | 136 - 145 | [facility] | [...] +---------+ + + + | CHLORIDE, | 104 | 98 - 107 mmol/L | [facility] | | | PLASMA | | | DEPARTMENT | | | (LAB) | | | OF | | | | | | PATHOLOGY | | + +---------+ + + + | TOTAL CO2, | 26 | 23 - 29 mmol/L | [facility] | | | PLASMA | | | DEPARTMENT | | | (LAB) | | | OF | | | | | | PATHOLOGY | | + +---------+ + + + | ALT (SGPT) | 35 | 13 - 48 U/L | [facility] | | | | | | DEPARTMENT | | | [...] DEPARTMENT OF | [address] | [place] [address] | | | PATHOLOGY | [address] | | | + + + + + | [facility] | [address] | [place] [address] | | | PATHOLOGY | [address] | | | + + + + + documented in this encounter Visit Diagnoses Not on filedocumented in this encounter"
--- OUTSIDE RECORDS SUMMARY | ~2020-03-10 | XMS | Encounter Summary ---
Demographics + + + | Address | [address] | | | [place] [address] | + + + | Home Phone | | + + + | Preferred Language | Unknown | + + + | Marital Status | | + + + | Latter Day Affiliation | 1041 | + + + | Race | Unknown | + + + | Ethnic Group | Unknown | + + + Author + + + | Author | [facility]erg[facility] With [facility] | | | and [place] | + + + | Organization | [facility]erged With [facility] | | | [...] [place] | | | | | [address] | | + + + + + | Scot Damico | ECON | [address] | | | | | [place] [address] | | + + + + + Care Team Providers + +------+ + | Care Malt Specifications Control Assistant Name | Role | Phone | + +------+ + | Ralph Chatman MD | PCP | | + +------+ + Reason for Visit + + + | Reason | Comments | + + + | Follow-up | | + + + Encounter Details +--------+---------+ + + + | Date | Type | Department | Care Team | Description | +--------+---------+ + + + | 07/29/ | Office | [facility] | [place], | COPD (chronic | | 2013 | Visit | PULMONARY [address] | Irina Sofia MD | obstructive | | | | [place], | | pulmonary disease) | | | | [place] [address] | | ([facility]LY [facility]) (Primary Dx) | | | | [phone] | | | +--------+---------+ + + + [...] + + + | Blood Pressure | 132/74 | 07/29/2014 2:33 PM | | | | | PDT | | + + + + + | Pulse | 56 | 07/29/2014 2:33 PM | | | | | PDT | | + + + + + | Temperature | - | - | | + + + + + | Respiratory Rate | - | - | | + + + + + | Oxygen Saturation | 99% | 07/29/2014 2:33 PM | | | | | PDT | | + + + + + | Inhaled Oxygen | - | - | | | Concentration | | | | + + + + + | Weight | 87 kg (191 lb 11.2 | 07/29/2014 2:33 PM | | | | oz) | PDT | | + + + + + | Height | 171.5 cm (5' 7.5") | 07/29/2014 2:33 PM | | | | | PDT | | + + + + + | Body Mass Index | 29.58 | 07/29/2014 2:33 PM | | | | | PDT | | + + + + + documented in this encounter Patient Instructions Patient Instructions Irina Norton MD - 07/29/2014 3:24 PM PDTStart on Spiriva on e capsule inhaled daily. Continue to use the ProAir as needed. Do an overnight oxygen test through [employer]. Call the [employer] before yo u pick it up to make sure they have a box available. You will apple picking supervisor a box at the [employer]. Do the test on room air. Wear the finger probe through the night and then return the box for a download the next day. documented in this encounter Progress Notes Irina Norton MD - 07/29/2014 2:58 PM PDTFormatting of this note might be differe nt from the original. Pulmonary Follow Up HPI Iraida Damico is a 79 y.o. male patient of Ralph Chatman here today for follo w up of shortness of breath. At their last visit, we had ordered PFTs and a chest CT. He comes back today to review the results of these. Currently he is using his rescue inhaler, ProAir, 3 times a week. He feels like this helps very temporarily. He feels like it works right away and helps for only a few minutes. He on ly uses it when he has been exerting himself a lot. He does not have a spacer to use with it . He returns today for routine follow up. Currently he is able to walk 1/2 mile to 1 mile at his own pace on level ground. He is exer cising regularly. They walk periodically, but he does stationary biking for 30 minutes 3 guillermo es weekly and some weight lifting. He does not cough much, though he coughs a little bit in the mornings when he gets up. He has not been evaluated for nocturnal oxygen and does not use it. He is not sure he would wear it if we tested him and he needed it. 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 Review of Systems Constitutional: Denies fever, chills, and sweats. He has lost a few pounds. Eyes: Denies vision change and eye irritation. ENT: Denies earache, decreased hearing, nosebleeds, sore throat, and hoarseness. Resp: See HPI. CV: Denies chest pain, palpitations, syncope, and peripheral edema. GI: Denies heartburn, nausea, vomiting, and abdominal pain. : Denies difficulty emptying bladder. Objective BP 132/74 | Pulse 56 | Ht 1.715 m (5' 7.5") | Wt 86.955 kg (191 lb 11.2 oz) | BMI 29.56 kg/ m2 | SpO2 99% General Appearance: Alert, cooperative, no distress, appears stated age Head: Normocephalic, without obvious abnormality, atraumatic Eyes: PERRL, conjunctiva clear, no scleral icterus, EOM's intact Ears: Wearing hearing aides, slightly diminished acuity Nose: Nares normal, septum midline, mucosa normal Mouth: No oral lesions or exudate Neck: Supple, symmetrical, no adenopathy Lungs: No accessory muscle use, breath sounds are somewhat diminished bilaterally with pr olongation of the expiratory phase, no wheezes, crackles or rhonchi Chest Wall: No deformity Heart: Regular rate and rhythm, no murmur, rub or gallop Abdomen: Soft, non-tender, non-distended Extremities: No cyanosis, clubbing, trace to 1+ bilateral lower extremity edema Pulses: Radial pulses 1+ and symmetric Skin: Warm and dry Lymph nodes: Cervical and supraclavicular nodes normal Data: Chest CT scan was done prior to clinic today and was reviewed and interpreted in clinic tojulienne weldon. It shows fine emphysema, and some dependent bibasilar atelectasis. Prosthetic aortic shad ve is noted. Pulmonary function tests were performed prior to clinic today and were reviewed and interpr eted in clinic today. They show normal spirometry and lung volumes, diffusion capacity is m oderately reduced. Immunization History Administered Date(s) Administered INFLUENZA, >= 4YO W/PRESERVATIVE IM 07/07/2013 TRIVALENT INFLUENZA, PRESERATIVE FREE (PED/ADOL/ADULT) 06/21/2014 ZOSTER, 1 DOSE (ADULT) 07/07/2012 Assessment 1. COPD (chronic obstructive pulmonary disease) (HCC) - I would guess this is mild. It may not be the only cause of his shortness of breath either. At this point, his symptoms have be en present a while, and he had such significant valvular disease, he may have some degree of deconditioning. I recommended increasing his exercise to 30 minutes 5 times weekly consiste ntly. I would start a long acting anti cholinergic to see if this helps his breathing. It will be easier to reliably use than a rescue inhaler. I would also check an overnight oximetry to see if he is desaturating. He has a few signs o f sleep apnea, but not many, and if he desaturates, this could lead to a sleep study. Plan 1.Start Spiriva one capsule inhaled daily. 2.Check overnight oximetry on room air. 3.Continue to use ProAir as needed. 25 minutes were spent with Mr. Damico with greater than 50% spent in counseling and coordina tion of care regarding his lung disease and test results. He was advised to call if new pulmonary symptoms were to develop. Return to clinic in 3 months, or sooner with concerns. CC: Ralph Chatman Portions of this report were transcribed using voice recognition software. Every effort wa s made to ensure accuracy; however, inadvertent computerized sharepoint engineer errors may be pre sent. Electronically signed by: Irina Norton MD 07/29/2014 14:58 documented in t his encounter Plan of Treatment +--------+---------+ + + + | Date | Type | Specialty | Care Team | Description | +--------+---------+ + + + | 05/02/ | Office | Neurology | Dada Goodwin, | | | 2019 | Visit | | MD Gabriel SELLERS | | | | | | [facility] | | | | | | [place] [address] | | | | | | [phone] | | | | | | | | +--------+---------+ + + + + + +--------+ + + | Name | Type | Priori | Associated Diagnoses | Order Schedule | | | | ty | | | + + +--------+ + + | Overnight oximetry, | Respiratory | Routin | COPD (chronic | Expected: | | room air | Care | e | obstructive | 07/29/2014, Expires: | | | | | pulmonary disease) | 07/29/2015 | | | | | (HCC) | | + + +--------+ + + documented as of this encounter Visit Diagnoses + + | Diagnosis | + + | COPD (chronic obstructive pulmonary disease) (HCC) - Primary Chronic airway | | obstruction, not elsewhere classified | + + documented in this encounter
--- OUTSIDE RECORDS SUMMARY | ~2020-03-10 | XMS | Encounter Summary ---
Demographics + + + | Address | [address] | | | [place] [address] | + + + | Home Phone | | + + + | Preferred Language | Unknown | + + + | Marital Status | | + + + | Orthodox Affiliation | 1041 | + + + | Race | Unknown | + + + | Ethnic Group | Unknown | + + + Author + + + | Author | [facility] | | | and [place] | + + + | Organization | [facility] | | [...] [place] | | | | | [address] | | + + + + + | Scot Damico | ECON | [address] | | | | | [place] [address] | | + + + + + Care Team Providers + +------+ + | Care Machinist Supervisor Name | Role | Phone | + +------+ + | Ralph Chatman MD | PCP | | + +------+ + Encounter Details +--------+ + + + + | Date | Type | Department | Care Team | Description | +--------+ + + + + | 07/29/ | Hospital | [facility] | [place], | Cough | | 2013 | Encounter | MED CTR PULMONARY | Irina Sofia MD | | | | | FUNCTION [address] | | | | | | [place], | | | | | | [place] [address] | | | | | | [phone] | | | +--------+ + + + [...] + + + +---------+ + + | tiotropium | Inhale 1 capsule | 30 | 11 | 07/29/20 | | | (SPIRIVA HANDIHALER) | into the lungs | capsule | | 14 | 5 | | 18 mcg inhalation | Daily. | | | | | | capsule [...] D | | | | | | [place] [address] | | | | | | [phone] | | | | | | | | +--------+---------+ + + + documented as of this encounter Procedures + +--------+ + + + | Procedure Name | Priori | Date/Time | Associated Diagnosis | Comments | | | ty | | | | + +--------+ + + + | PFT PULMONARY | NEHA | 08/03/2014 | Cough | Results for this | | FUNCTION TESTING | | 9:26 AM | | procedure are in the | | ORDERS | | PDT | | results section. | + +--------+ + + + | PFT PULMONARY | NEHA | 08/03/2014 | Cough | Results for this | | FUNCTION TESTING | | 9:26 AM | | procedure are in the | | ORDERS | | PDT | | results section. | + +--------+ + + + | PFT PULMONARY | NEHA | 08/03/2014 | Cough | Results for this | | FUNCTION TESTING | | 9:26 AM | | procedure are in the | | ORDERS | | PDT | | results section. | + +--------+ + + + | PFT PULMONARY | NEHA | 08/03/2014 | Cough | Results for this | | FUNCTION TESTING | | 9:26 AM | | procedure are in the | | ORDERS | | PDT | | results section. | + +--------+ + + + | DIAGNOSTIC REPORT - | | 07/29/2014 | | | | EXTERNAL SCAN | | 12:00 AM | | | | | | PDT | | | + +--------+ + + + documented in this encounter Results PFT PULMONARY FUNCTION TESTING ORDERS Full PFT (Irvin w/BD, lung volumes, diffusion)?: Yes (08/03/2014 9:26 [...] | | Irina Norton MD 08/03/2014 9:22 [facility] | | | [facility] CC: Ralph Chatman | | + + + + + [...] signed by: Irina Norton, | | 08/03/2014 9:22[facility] | |[facility] | | | |CC: Ralph Chatman | + + documented in this encounter Visit Diagnoses + + | Diagnosis | + + | Cough | + + documented in this encounter"
--- OUTSIDE RECORDS SUMMARY | ~2020-03-10 | XMS | Encounter Summary ---
Demographics + + + | Address | [address] | | | [place] [address] | + + + | Home Phone | | + + + | Preferred Language | Unknown | + + + | Marital Status | Single | + + + | Jehovah'S Witness Affiliation | CAT | + + + | Race | White | + + + | Ethnic Group | Not or | + + + Author + + + | Author | [facility] | + + + | Organization | [facility] | + + + | Address | Unknown | + + + | Phone | Unavailable | + + + Support + + +---------+ + | Name | Relationship | Address | Phone | + + +---------+ + | Elizabeth Damico | ECON | Unknown | | + + +---------+ + Care Team Providers + +------+ + | Care Licensed Practical Nurse Name | Role | Phone | + +------+ + PCP | Unavailable | + +------+ + Encounter Details +--------+ + + + + | Date | Type | Department | Care Team | Description | +--------+ + + + + | 01/04/ | Documentati | NON-[facility] EP[facility] | Unknown . | | | 2020 | on | Department | | | +--------+ + + + [...]
--- OUTSIDE RECORDS SUMMARY | ~2020-03-10 | XMS | Encounter Summary ---
Demographics + + + | Address | [address] | | | [place] [address] | + + + | Home Phone | | + + + | Preferred Language | Unknown | + + + | Marital Status | | + + + | Mu-Ism Affiliation | 1041 | + + + | Race | Unknown | + + + | Ethnic Group | Unknown | + + + Author + + + | Author | [facility] | | | and [place] | + + + | Organization | [facility] | | | [...] [place] | | | | | [address] | | + + + + + | Scot Damico | ECON | [address] | | | | | [place] [address] | | + + + + + Care Team Providers + +------+ + | Care Oracle Bpm Developer Name | Role | Phone | + +------+ + | Ralph Chatman MD | PCP | | + +------+ + Reason for Visit + + + | Reason | Comments | + + + | Appointment | | + + + Encounter Details +--------+ + + + + | Date | Type | Department | Care Team | Description | +--------+ + + + + | 10/15/ | Telephone | [facility] | [place], | Appointment | | 2014 | | PULMONARY [address] | Irina Sofia MD | | | | | [place], | | | | | | [place] [address] | | | | | | [phone] | | | +--------+ + + + [...] | | | [place] [address] | | | | | | [phone] | | | | | | | | +--------+---------+ + + + documented as of this encounter Visit Diagnoses Not on filedocumented in this encounter"
--- OUTSIDE RECORDS SUMMARY | ~2020-03-10 | XMS | Encounter Summary ---
Demographics + + + | Address | [address] | | | [place] [address] | + + + | Home Phone [...] [place] | | | | | [address] | | + + + + + | Scot Damico | ECON | [address] | | | | | [place] [address] | | + + + + + Care Team Providers + +------+ + | Care Supervisor Filtration Name | Role | Phone | + +------+ + | Ralph Chatman MD | PCP | | + +------+ + Encounter Details +--------+ + + + + | Date | Type | Department | Care Team | Description | +--------+ + + + + | 07/08/ | Hospital | [facility] | Kriss Ceballos, | | | 2012 - | Encounter | [facility] | [address] | | | | | CARDIAC TRANSPLANT | [place] [address] | | | 07/13/ | | [address] | [phone] | | | 2012 | | [place], [place] | | | | | | [address] | | | | | | [phone] | | | +--------+ + + + [...] 1935 ADMISSION DATE: 07/08/2013 DISCHARGE DATE: 07/13/2013 [id number] / [id number] Mr. Damico is a 78-year-old gentleman with [...] any peripheral edema. His wounds were healing DAMICOIRAIDA Trujillo ADM:07/08/13 [id number] 07/13/13 DIS IN DISCHARGE SUMMARY [id number] [facility] JOSÉ Knight [facility] MD Theo Sow THIS REPORT IS CONFIDENTIAL AND NOT TO BE RELEASED WITHOUT PROPER AUTHORIZATION. [facility] without any signs of complications and he was instructed to follow up with Dr. Ceballos, as well as with his registered nurse surgical services in approximately one month in [place]. His registered nurse surgical services, Dr. Hugehs, actually does go to [place] and they may see Dr. Hughes there. [...] He is also given a prescription for Cabazon 5 mg tablet every three hours p.r.n. pain, quant ity #60 with no refills. POONAM Chavez MD P P TV/lat #[id number] cc: MD Ralph Buchanan MD Torrey Vail, [facility] Kriss Ceballos MD Electronically Signed 07/24/13 0751 Kriss Ceballos MD IRAIDA DAMICO ADM:07/08/13 [id number] 07/13/13 DIS IN DISCHARGE SUMMARY [id number] [facility] Nirmal Vidal, [facility] Kriss Ceballos MD R THIS REPORT IS CONFIDENTIAL AND NOT TO BE RELEASED WITHOUT PROPER AUTHORIZATION.Electronica lly signed by LINO Knight at 07/24/2013 7:52 AM PDTdocumented in this encounter Progress Notes Corrie Mendez, BOOSTER ASSEMBLER - 07/10/2013 11:11 AM PDT Diabetes Progress [...] a hx of Aortic stenosis admitted to [facility] and underwent AVR 07/08. * Stress hyperglycemia [...] heart BG mgmt, blood sugar monitoring CC: //ivnm// Electronically Signed By: Corrie Mendez NP 07/10/13 1115 LAWRENCE DAMICOERNE Cassandra ADM:07/08/13 [id number] ADM IN PROGRESS NOTE [id number] [facility] Corrie Mendez NP E-Sign: [facility] THIS REPORT IS CONFIDENTIAL AND NOT TO BE RELEASED WITHOUT PROPER AUTHORIZATION. Corrie Shaver ARNP - 07/09/2013 3:05 PM P DT Diabetes Progress Note Patient information/HPI: Diabetes Chief Complaint: stress hyperglycemia, postop blood glucose mgmt Consulted by: Dr Ruiz Context: Initiated: 07/09/13 at 1506 for IRAIDA DAMICO Cassandra, a 78yo Male admitted on . Associated [...] a hx of Aortic stenosis admitted to [facility] and underwent AVR 07/08. * Stress hyperglycemia [...] Mendez NP 07/09/13 1513 IRAIDA DAMICO ADM:07/08/13 [id number] ADM IN PROGRESS NOTE [id number] [facility] Corrie Mendez NP E-Sign: [facility] THIS REPORT IS CONFIDENTIAL AND NOT TO BE RELEASED WITHOUT PROPER AUTHORIZATION. documented in this encounter Plan of Treatment +--------+---------+ + + + | Date | Type | Specialty | Care Team | Description | +--------+---------+ + + + | 05/02/ | Office | Neurology | Dada Goodwin, | | | 2019 | Visit | | MD Gabriel SELLERS | | | | | | [address] | | | | | | [facility] [place] [address] | | | | | | [phone] | | | | | | | [...] + + + + + + | Clarity | Clear | | [facility] | | | | [...] - 1.030 | [facility] | | | [place] | | | [facility] | | | [...] + + | [facility] | [address] | [place] [address] | | | [facility] | | | | | LABORATORY | | | | + + + + + XR Chest 2 VW (07/13/2013 9:44 AM PDT) + + | Specimen | + + | | + + + + + | Narrative | Performed At | + + + | Exam Performed Location: [facility] AND | MISCELANIOUS | | LATERAL CHEST [...] | No new infiltrates identified. S: SQ [id number]) Signed by: NAVID | | | MD CLEMENTINE | | + + + + + | Procedure Note | + + | Jorje, Rad Conversion - 07/29/2013 4:39 PM PDT Exam Performed Location: [facility] | | at [facility] AND LATERAL CHEST X-RAYCLINICAL INFORMATION:Post heart | [...] No new infiltrates | | identified.S: SQ ([id number]) Signed by: NAVID SPRING MD | |pericardial [...] | | | | | |S: SQ ([id number]) Signed by: NAVID SPRING MD | + + + +---------+ + + | Performing | Address | City/State/Zipcode | Phone Number | | Organization | | | | + +---------+ + + | MISCELLANEOUS LAB | | | [phone] | + +---------+ + + | MISCELANIOUS LAB | | | [phone] | + +---------+ + + CBC no Differential (07/13/2013 9:28 AM PDT) + + + + + + | Component | Value | Ref Range | Performed | Pathologist | | | | | At | Signature | + + + + + + | WBC | 5.5 | 3.8 - 11.0 K/uL | [facility] | | | | | [facility] | | | | | | MEDICAL | | | | | | CENTER | | | | | | LABORATORY | | + + + + + + | RBC | 4.15 (L) | 4.20 - 5.70 [...] + | [facility] | [address] | [place] [address] | | | [facility] | | | | | LABORATORY [...] + | [facility] | [address] | [place] [address] | | | [facility] | [...] + + | Glucose | 123 (H)Comment: Mozambican | 65 - 99 mg/dL | [facility] [...] + + | [facility] | [address] | [place] [address] | | | [facility] | | | | | LABORATORY | | | | + + + + + CBC no Differential (07/11/2013 4:19 AM PDT) + + + + + + | Component | Value | Ref Range | Performed | Pathologist | | | | | At | Signature | + + + + + + | WBC | 7.6 | 3.8 - 11.0 K/uL | [facility] | | | | | [facility] | | | | | | MEDICAL | | | | | | CENTER | | | | | | LABORATORY | | + + + + + + | RBC | 3.96 (L) | 4.20 - 5.70 [...] + + | [facility] | [address] | [place] [address] | | | [facility] | | | | | LABORATORY | [...] + | [facility] | [address] | [place] [address] | | | [facility] | [...] + + + + + | [facility] | [address] | [place] [address] | | | [facility] | | | | | LABORATORY [...] + + | [facility] | [address] | [place] [address] | | | [facility] | | | | | LABORATORY | | | | + + + + + POC Glucose (07/10/2013 8:31 AM PDT) + +---------+ + + + | Component | Value | Ref Range | Performed | Pathologist | | | | | At | Signature | + +---------+ + + + | Glucose, | 120 (H) | 65 - 99 mg/dL | [facility] | | | POC | | | [...] + + + + + | [facility] | [address] | [place] [address] | | | [facility] | [...] 27 | 21 - 28 mmol/L | [facility] | | | | | | [facility] | | | | | | HEART | | | | | | MEDICAL | | | | | | CENTER | | | | | | LABORATORY | | + + + + + + | Glucose | 150 (H)Comment: Mozambican | 65 - 99 mg/dL | [facility] | | | | Diabetes Association | [...] + + | [facility] | [address] | [place] [address] | | | [facility] | | | | | LABORATORY | | | | + + + + + CBC no Differential (07/10/2013 2:54 AM PDT) + + + + + + | Component | Value | Ref Range | Performed | Pathologist | | | | | At | Signature | + + + + + + | WBC | 10.1 | 3.8 - 11.0 K/uL | [facility] | | [facility] | | | | | | [facility] | | | | | | MEDICAL | | | | | | CENTER | | | | | | LABORATORY | | + + + + + + | RBC | 4.03 (L) | 4.20 - 5.70 [...] + | [facility] | [address] | [place] [address] | | | [facility] | | | | | LABORATORY | [...] [address] | [place] [address] | | | [facility] | | | | | LABORATORY [...] [address] | [place] [address] | | | [facility] | [...] + | [facility] | [address] | [place] [address] | | | [facility] | | | | | LABORATORY | | | | + + + + + POC Glucose (07/09/2013 12:18 PM PDT) + +-------+ + + + | Component | Value | Ref Range | Performed | Pathologist | | | | | At | Signature | + +-------+ + + + | Glucose, | 74 | 65 - 99 mg/dL | [facility] | | | POC | | | [...] + + | [facility] | [address] | [place] [address] | | | [facility] | | | | | LABORATORY [...] [facility]CRED | [address] | [place] [address] | | | [facility] | [...] + | [facility] | [address] | [place] [address] | | | [facility] | | | | | LABORATORY | [...] + + | [facility] | [address] | [place] [address] | | | [facility] | | | | | LABORATORY | [...] + + | Glucose | 142 (H)Comment: Mozambican | 65 - 99 mg/dL | [facility] | | | | Diabetes Association | [...] + + | [facility] | [address] | [place] [address] | | | [facility] | | | | | LABORATORY | | | | + + + + + CBC no Differential (07/09/2013 4:23 AM PDT) + + + + + + | Component | Value | Ref Range | Performed | Pathologist | | | | | At | Signature | + + + + + + | WBC | 9.9 | 3.8 - 11.0 K/uL | [facility] | | | [facility] | | | | | | [facility] | | | | | | MEDICAL | | | | | | CENTER | | | | | | LABORATORY | | + + + + + + | RBC | 3.94 (L) | 4.20 - 5.70 [...] + | [facility] | [address] | [place] [address] | | | [facility] | | | | | LABORATORY | [...] + + | [facility] | [address] | [place] [address] | | | [facility] | | | | | LABORATORY | | | | + + + + + XR Chest PA or AP (07/09/2013 3:58 AM PDT) + + | Specimen | + + | | + + + + + | Narrative | Performed At | + + + | Exam Performed Location: [facility] [place] AP CHEST | MISCELANIOUS | | RADIOGRAPH [...] basilar | | | atelectasis. S: SQ ([id number]) Signed by: | | | LANEY GARDNER MD | | + + + + + | Procedure Note | + + | Jorje, Rad Conversion - 07/29/2013 4:31 PM PDT Exam Performed Location: [facility] | | at [facility] CHEST RADIOGRAPHCLINICAL INFORMATION:Post open heart | | surgery.COMPARISON:Yesterday and priors.PROCEDURE:AP chest radiographFINDINGS:Interval | | extubation. Central line and mediastinal drains remain inplace. Mildly increased left | | basilar atelectasis. No largeeffusion or pneumothorax. Stable mild | | cardiomegaly.IMPRESSION:Interval extubation with mildly increased left basilar | | atelectasis.S: SQ ([id number]) Signed by: LANEY GARDNER MD | |COMPARISON: [...] | | | | | |S: SQ ([id number]) Signed by: LANEY GARDNER MD | + + + +---------+ + + | Performing | Address | City/State/Zipcode | Phone Number | | Organization | | | | + +---------+ + + | MISCELLANEOUS LAB | | | [phone] | + +---------+ + + | MISCELANIOUS LAB | | | [phone] | + +---------+ + + POC Glucose (07/09/2013 3:07 AM PDT) + +---------+ + + + | Component | Value | Ref Range | Performed | Pathologist | | | | | At | Signature | + +---------+ + + + | Glucose, | 132 (H) | 65 - 99 mg/dL | [facility] | | | POC | | | [...] + + | [facility] | [address] | [place] [address] | | | [facility] | | | | | LABORATORY [...] [facility]CR[facility] | [address] | [place] [address] | | | [facility] | [...] + | [facility] | [address] | [place] [address] | | | [facility] | | | | | LABORATORY | [...] + + | [facility] | [address] | [place] [address] | | | [facility] | | | | | LABORATORY | [...] + + | [facility] | [address] | [place] [address] | | | [facility] | | | | | LABORATORY | | | | + + + + + CBC no Differential (07/08/2013 10:39 PM PDT) + + + + + + | Component | Value | Ref Range | Performed | Pathologist | | | | | At | Signature | + + + + + + | WBC | 8.2 | 3.8 - 11.0 K/uL | [facility] | | | | [facility] | | | | | | [facility] | | | | | | MEDICAL | | | | | | CENTER | | | | | | LABORATORY | | + + + + + + | RBC | 3.95 (L) | 4.20 - 5.70 [...] [facility]CR[facility] | [address] | [place] [address] | | | [facility] | | | | | LABORATORY [...] + + | [facility] | [address] | [place] [address] | | | [facility] | | | | | LABORATORY | [...] + | [facility] | [address] | [place] [address] | | | [facility] | [...] + + + + + | [facility] | [address] | [place] [address] | | | [facility] | [...] (H) | 65 - 99 mg/dL | [facility] | | | | | | [facility]CR[facility] [...] + | [facility] | [address] | [place] [address] | | | [facility] | | | | | LABORATORY | [...] PSV P 5, PS 8 | | [facility] | | | Information | | | [...] + + | [facility] | [address] | [place] [address] | | | [facility] | | | | | LABORATORY [...] + + | [facility] | [address] | [place] [address] | | | [facility] | | | | | LABORATORY | | | | + + + + + CBC no Differential (07/08/2013 5:31 PM PDT) + + + + + + | Component | Value | Ref Range | Performed | Pathologist | | | | | At | Signature | + + + + + + | WBC | 8.9 | 3.8 - 11.0 K/uL | [facility] | | | | [facility] | | | | | | [facility] | | | | | | MEDICAL | | | | | | CENTER | | | | | | LABORATORY | | + + + + + + | RBC | 3.98 (L) | 4.20 - 5.70 [...] + + | [facility] | [address] | [place] [address] | | | [facility] | | | | | LABORATORY | | | | + + + + + Glucose, Respiratory (07/08/2013 5:28 PM PDT) + +---------+ + + + | Component | Value | Ref Range | Performed | Pathologist | | | | | At | Signature | + +---------+ + + + | Glucose | 170 (H) | 65 - 99 mg/dL | [facility] | | | | | | [facility] | | | | | | HEART [...] + + | [facility] | [address] | [place] [address] | | | [facility] | | | | | LABORATORY [...] SACRED | [address] | [place] [address] | | | [facility] | | | | | LABORATORY [...] + | [facility] | [address] [place] [address]. | [place] [address] | | | [facility] | | | | | LABORATORY [...] + + | [facility] | [address] | [place] [address] | | | [facility] | | | | | LABORATORY | [...] + + | [facility] | [address] | [place] [address] | | | [facility] | | | | | LABORATORY | | | | + + + + + XR Chest PA or AP (07/08/2013 4:50 PM PDT) + + | Specimen | + + | | + + + + + | Narrative | Performed At | + + + | Exam Performed Location: [facility] [place] CHEST | MISCELANIOUS | | X-RAY PORTABLE SINGLE [...] or abnormality. | | | S: SQ ([id number]) Signed by: FELI SIMMONS MD | | + + + + + | Procedure Note | + + | Jorje, Rad Conversion - 07/29/2013 4:29 PM PDT Exam Performed Location: [facility] | | at [facility] X-RAY PORTABLE SINGLE VIEWCLINICAL INFORMATION:Aortic valve [...] inexpected location.No lung complications or abnormality.S: SQ ([id number]) Signed by: | | FELI SIMMONS MD [...] | | | | | |S: SQ ([id number]) Signed by: FELI SIMMONS MD | + + + +---------+ + + | Performing | Address | City/State/Zipcode | Phone Number | | Organization | | | | + +---------+ + + | MISCELLANEOUS LAB | | | [phone] | + +---------+ + + | MISCELANIOUS LAB | | | [phone] | + +---------+ + + Blood Gas [...] + + + + + | [facility] | [address] | [place] [address] | | | [facility] | | | | | LABORATORY | [...] + + | [facility] | [address] | [place] [address] | | | [facility] | | | | | LABORATORY [...] + + + + + | [facility] | [address] | [place] [address] | | | [facility] | | | | | LABORATORY | [...] + + + + + | [facility] | [address] | [place] [address] | | | [facility] | [...] + + | [facility] | [address] | [place] [address] | | | [facility] | | | | | LABORATORY | [...] | | Arterial | Comment: | | [facility] | | | | Results delivered to: [...] + + | [facility] | [address] | [place] [address] | | | [facility] | | | | | LABORATORY | [...] + + | [facility] | [address] | [place] [address] | | | [facility] | | | | | LABORATORY | | | | + + + + + Chemistry Honey, A and V, Surgery (07/08/2013 2:28 PM [...] + | [facility] | [address] | [place] [address] | | | [facility] | | | | | LABORATORY | [...] + + | [facility] | [address] | [place] [address] | | | [facility] | | | | | LABORATORY | [...] + + | [facility] | [address] | [place] [address] | | | [facility] | [...] [address] | [place] [address] | | | [facility] | [...] + + | [facility] | [address] | [place] [address] | | | [facility] | | | | | LABORATORY | | | | + + + + + Surgical Pathology Exam (07/08/2013 12:00 AM PDT) + + | Specimen | + + | | + + + + + | Narrative | Performed At | + + + | SURGICAL PATHOLOGY REPORT | EQUALITY | | Date Taken: 07/08/2013 Date Received: | [facility] | | 07/08/2013 Completed: 07/10/2013 Physician: KRISS CEBALLOS Copy to: [facility] | | DIAGNOSIS: Aortic valve leaflets: - [...] | | | areas are identified. Random account manager sales representative sections are placed | | | into "A1". (AK) MICROSCOPIC DESCRIPTION: Histologic sections | | | of all submitted blocks are examined by light microscopy. These | | | findings, together with the gross examination, support the pathologic | | | diagnosis. A: [id number], [id number] [facility] [address] [facility] | | | [place] [address] or | | | Testing performed at: [facility] | | | Laboratory Alberto Najera M.D., Director [facility] [address] | | | [address] [place] [address] | | + + + + + + + + | Performing | Address | City/State/Zipcode | Phone Number | | Organization | | | | + + + + + | [facility] | [address] | [place] [address] | | | [facility] | | | | | LABORATORY | | | | + + + + + documented in this encounter Visit Diagnoses Not on filedocumented in this encounter
--- OUTSIDE RECORDS SUMMARY | ~2020-03-10 | XMS | Encounter Summary ---
Demographics + + + | Address | [address] | | | [place] [address] | + + + | Home Phone | | + + + | Preferred Language | Unknown | + + + | Marital Status | Single | + + + | Caodaism Affiliation | CAT | + + + [...] Team Providers + +------+ + | Care Resident Hall Director Name | Role | Phone | + +------+ + PCP | Unavailable | + +------+ + Encounter Details +--------+ + + + + | Date | Type | Department | Care Team | Description | +--------+ + + + + | 11/28/ | Results | | Tabby Mcnulty, | | | 2003 | Only | | MD | | +--------+ + + + + [...] + | X-RAY SPINE | Routin | 11/28/2003 | | Results for this | | LUMBOSACRAL 2 VIEWS | e | 7:03 PM | | procedure are in the | | | | PST | | results section. | + +--------+ + + + | GENTAMICIN, RANDOM | Routin | 11/28/2003 | | Results for this | | | e | 8:50 AM | | procedure are in the | | | | PST | | results section. | + +--------+ + + + | CARCINOEMBRYONIC AG, | Routin | 11/28/2003 | | Results for this | | SERUM | e | 5:15 AM | | procedure are in the | | | | PST | | results section. | + +--------+ + + + | LIVER SET | Routin | 11/28/2003 | | Results for this | | (AST,ALT,BILI | e | 5:15 AM | | procedure are in the | | TOTAL,BILI | | PST | | results section. | | DIRECT,ALK | | | | | | PHOS,ALB,PROT TOTAL) | | | | | + +--------+ + + + | C-REACTIVE PROTEIN | Routin | 11/28/2003 | | Results for this | | | e | 5:15 AM | | procedure are in the | | | | PST | | results section. | + +--------+ + + + | SEDIMENTATION RATE | Routin | 11/28/2003 | | Results for this | | | e | 5:15 AM | | procedure are in the | | | | PST | | results section. | + +--------+ + + + documented in this encounter Results SPINE LUMBOSACRAL 2 VIEWS (11/28/2003 7:03 PM PST) + + + + + + | Component | Value | Ref Range | Performed | Pathologist | | | | | At | Signature | + + + + + + | SPINE | Radiologist 1: HOLLY, | | | | | LUMBOSACRAL | Bambi SORENSEN | | | | | 2 VIEWS | M.D.-Radiologist 2: | | | | | | Bambi BARRERA, | | | | | | M.D.STUDY: A.POtto lateral | | | | | | lumbar spine COMPARISON: | | | | | | NONE DISCUSSION: A TLSO | | | | | | brace is in place. | | | | | | There is mild | | | | | | levoscoliosis | | | | | | centeredaround L3. There | | | | | | is marked loss of disc | | | | | | height with sclerosis | | | | | | atL5 -- S1. Slight | | | | | | anterolisthesis is seen | | | | | | at L4 -- L5. Very | | | | | | subtleendplate | | | | | | irregularity is seen on | | | | | | the inferior surface of | | | | | | L3 andsuperior surface | | | | | | of L4 on the lateral | | | | | | view only, but the | | | | | | inferiorendplate of L3 | | | | | | appears normal on the | | | | | | frontal view. No | | | | | | fracturesare identified. | | | | | | IMPRESSION: 1. Lower | | | | | | lumbar degenerative disc | | | | | | disease without | | | | | | fractures. 2. | | | | | | Questionable endplate | | | | | | irregularity at the L3 | | | | | | -- L4 disc. This | | | | | | maymerely be geometric | | | | | | distortion from the | | | | | | scoliosis. Recommend | | | | | | follow-up imaging at one | | | | | | and three months to | | | | | | confirm stability.. | | | | + + + + + + + + | Specimen | + + | | + + + +---------+ + + | Performing | Address | City/State/Zipcode | Phone Number | | Organization | | | | + +---------+ + + | [facility] | | | | | RADIOLOGY | | | | + +---------+ + + GENTAMICIN, RANDOM (11/28/2003 8:50 AM PST) + +-------+ + + + | Component | Value | Ref Range | Performed | Pathologist | | | | | At | Signature | + +-------+ + + + | GENTAMICIN, | 4.1 | 0.3 - 8.0 ug/mL | [facility] | | | RANDOM | | | DEPARTMENT | | | | | | OF | | | | | | PATHOLOGY | | + +-------+ + + + + + | Specimen | + + | | + + + + + + + | Performing | Address | City/State/Zipcode | Phone Number | | Organization | | | | + + + + + | [facility] | [address] | [place] [address] | | | PATHOLOGY | [address] | | | + + + + + | [facility] | [address] | [place] [address] | | | PATHOLOGY | [address] | | | + + + + + C-REACTIVE PROTEIN (11/28/2003 5:15 AM PST) + +---------+ + + + | Component | Value | Ref Range | Performed | Pathologist | | | | | At | Signature | + +---------+ + + + | C-REACTIVE | 9.2 (H) | <0.9 mg/dl | | | | PROTEIN | | | | | + +---------+ + + + + + | Specimen | + + | | + + + + + + + | Performing | Address | City/State/Zipcode | Phone Number | | Organization | | | | + + + + + | [facility] | [address] | [place] [address] | | | LABORATORY | | | | + + + + + CEA-CARCINOEMBRYONIC AG SERUM (11/28/2003 5:15 AM PST) + +-------+ + + + | Component | Value | Ref Range | Performed | Pathologist | | | | | At | Signature | + +-------+ + + + | CEA-CARCINO | 1.9 | <5.1 ng/mL | [facility] | | | EMBRYONIC | | | DEPARTMENT | | | AG, SERUM | | | OF | | | | | | PATHOLOGY | | + +-------+ + + + + + | Specimen | + + | | + + + + + + + | Performing | Address | City/State/Zipcode | Phone Number | | Organization | | | | + + + + + | [facility]MENT [facility] | [address] | [place] [address] | | | PATHOLOGY | [address] | | | + + + + + | [facility]MENT [facility] | [address] | [place] [address] | | | PATHOLOGY | [address] | | | + + + + + SEDIMENTATION RATE (11/28/2003 5:15 AM PST) + +--------+ + + + | Component | Value | Ref Range | Performed | Pathologist | | | | | At | Signature | + +--------+ + + + | SEDIMENTATI | 61 (H) | <21 mm/hr | [facility] | [...] | + + + + + | [facility] DEPARTMENT OF | [address] | [place] [address] | | | PATHOLOGY | [address] | | | + + + + + | [facility] DEPARTMENT OF | [address] | [place] [address] | | | PATHOLOGY | [address] | | | + + + + + LIVER SET (11/28/2003 5:15 AM PST) + +---------+ + + + | Component | Value | Ref Range | Performed | Pathologist | | | | | At | Signature | + +---------+ + + + | ALBUMIN, | 1.9 (L) | 3.5 - 4.7 g/dL | [facility] | | | PLASMA | | | DEPARTMENT | | | (LAB) | | | OF | | | | | | PATHOLOGY | | + +---------+ + + + | BILIRUBIN | 0.5 | 0.3 - 1.2 mg/dL | [facility] | | | TOTAL | | | DEPARTMENT | | | | | | OF | | | | | | PATHOLOGY | | + +---------+ + + + | BILIRUBIN | 0.1 | <0.4 mg/dL | [facility] | | | DIRECT | | | DEPARTMENT | | | | | | OF | | | | | | PATHOLOGY | | + +---------+ + + + | ALK PHOS | 85 | 56 - 119 U/L | [facility] | | | | | | DEPARTMENT | | | | | | OF | | | | | | PATHOLOGY | | + +---------+ + + + | AST(SGOT) | 19 | 15 - 41 U/L | [facility] | | | | | | DEPARTMENT | | | | | | OF | | | | | | PATHOLOGY | | + +---------+ + + + | ALT (SGPT) | 31 | 13 - 48 U/L | [facility] | | | | | | DEPARTMENT | | | | | | OF | | | | | | PATHOLOGY | | + +---------+ + + + | TOTAL | 5.0 (L) | 6.1 - 7.9 g/dL | [...] | + + + + + | [facility] | [address] | [place] [address] | | | PATHOLOGY | [address] | | | + + + + + | [facility] | [address] | [place] [address] | | | PATHOLOGY | [address] | | | + + + + + documented in this encounter Visit Diagnoses Not on filedocumented in this encounter"
--- OUTSIDE RECORDS SUMMARY | ~2020-03-10 | XMS | Encounter Summary ---
Demographics + + + | Address | [address] | | | [place] [address] | + + + | Home Phone | | + + + | Preferred Language | Unknown | + + + | Marital Status | Single | + + + | Adventist Affiliation | CAT | + + + | Race | White | + + + | Ethnic Group | Not or | + + + Author + + + | Author | [facility] | + + + | Organization | [facility] | + + + | Address | Unknown | + + + | Phone | Unavailable | + + + Support + + +---------+ + | Name | Relationship | Address | Phone | + + +---------+ + | Elizabeth Damico | ECON | Unknown | | + + +---------+ + Care Team Providers + +------+ + | Care Recapper Name | Role | Phone | + [...] [facility] | | | | | | [place] [facility] | | | | | | and Healing, | | | | | | [facility], [facility] | | | | | | [place], [place] | | | | | | [address] | | | | | | [phone] | | | +--------+ + + + [...] DESCRIPTION:A: | | | | | | [place] patch; r/o BCC.B: | | | | [...] [place], | | | | | | [id number]. The surgical | | | | | [...] | | | | | | skin, [id number]. The | | | | | | [...] David | | | | | | Trui [...] + + + + | [facility] | [address] | [place] [address] | | | DERMATOPATHOLOGY | [address] | | | + + + + + documented in this encounter Visit Diagnoses Not on filedocumented in this encounter
--- OUTSIDE RECORDS SUMMARY | ~2020-03-10 | XMS | Encounter Summary ---
Demographics + + + | Address | [address] | | | [place] [address] | + + + | Home Phone | | + + + | Preferred Language | Unknown | + + + | Marital Status | | + + + | Confucianist Affiliation | 1041 | + + + | Race | Unknown | + + + | Ethnic Group | Unknown | + + + Author + + + | Author | [facility] | | | and [place] | + + + | Organization | [facility] | | [...] [place] | | | | | [address] | | + + + + + | Scot Damico | ECON | [address] | | | | | [place] [address] | | + + + + + Care Team Providers + +------+ + | Care Mechanic Chief Name | Role | Phone | + [...] | MED CTR [facility] | [address] [place] [address], | | | | | ADMIT AND RECOVERY | [place] [address] | | | | | [address] | [phone] | | | | | [place] | | | | | | [address] | | | | | | [phone] | | | +--------+---------+ + + + [...] D | | | | | | [place] [address] | | | | | | [phone] | | | | | | | [...] DAMICO Date: 03/30/2014 MRN: | | | [id number] Patient Location: [facility] | | | : 1935 Age: 78 [...] then | | | administered by the medical staff credentialing coordinator under my direction. Standard endoscopy | | [...] Ordering Physician: Theo HORAN | | | Vacuum Kettle Cook: Theo Horan MD [id number]: | | + + + + + | Procedure Note | + + | Jorje, Rad Results In - 03/30/2014 5:11 PM PDT | | Transesophageal | | Echo Report | | | | Name: IRAIDA DAMICO Date: 03/30/2014 | | Patient Location: [facility] | | : 1935 Age: 78 yrs [...] conscious sedation was then administered by the medical staff credentialing coordinator under my | | direction. Standard endoscopy [...] | Ordering Physician: Theo HORAN | | Vacuum Kettle Cook: Theo Horan MD | | [id number]: | + + + +---------+ + + | Performing | Address | City/State/Zipcode | Phone Number | | Organization | | | | + +---------+ + + | MISCELLANEOUS LAB | | | [phone] | + +---------+ + + | MISCELANIOUS LAB | | | [phone] | + +---------+ + + documented in [...]
--- OUTSIDE RECORDS SUMMARY | ~2020-03-10 | XMS | Encounter Summary ---
Demographics + + + | Address | [address] | | | [place] [address] | + + + | Home Phone | | + + + | Preferred Language | Unknown | + + + | Marital Status | | + + + | Samaritan Affiliation | 1041 | + + + | Race | Unknown | + + + | Ethnic Group | Unknown | + + + Author + + + | Author | [facility] | | | and [place] | + + + | Organization | [facility] | | | and [...] [place] | | | | | [address] | | + + + + + | Scot Mookie | ECON | [address] | | | | | [place] [address] | | + + + + + Care Team Providers + +------+ + | [place] Sheriff Name | Role | Phone | + [...] Services | Therapy | Kyphosis of | Erorl, | LOWELL | | | Required | | thoracic | Irina Sofia, | [facility] | | | | | region | MD [address] | [address] | | | | | | [address] | [place] | | | | | | [place], | [place] | | | | | | [place] [address] | [address] | | | | | | | Phone: | | | | | | | [phone] | | | | | | | Fax: | | | | | | | [phone] | +--------+ + + + + + [...] | | Shortness | [place], | [address] [place] | | | | | of breath | Irina B, | [place], | | | | | Procedures | MD [address] | [place] [address] | | | | | CT Chest wo | [address] | Phone: | | | | | Contrast | [place], | [phone] | | | | | | [place] [address] | Fax: | | | | | | | [phone] | +--------+--------+ + + + + Reason [...] Closed | | Pulmonology | Diagnoses | Sitz, | [place], | | | | | Cough | Ralph | Irina Sofia, | | | | | Procedures | MD Arturo | [address] | | | | | [place] OFFICE | [address] | | | | | CONSULTATION | Carmela | [place], | | | | | NEW/ESTAB | Juan R [address] | [place] [address] | | | | | PATIENT 60 | [place], | | | | | | MIN [place] | [place] | | | | | | OFFICE | [address] | | | | | | OUTPATIENT | Phone: | | | | | | NEW 60 | [phone] | | | | | | MINUTES [place] | Fax: | | | | | | ADV CARE | [phone] | | | | | | PLAN | | | | | | | DISCUSSED, | | | | | | | PLAN OR | | | | | | | SURROGATE | | | | | | | DOCUMENTED | | | | | | | MT | | | | | | | PNEUMOCOCCAL | | | | | | | | | | | | | | IMMUNIZATION | | | | | | | ORDERED OR | | | | | | | ADMINISTERED | | | | | | | [place] CALC | | | | | | | BMI OUT NRM | | | | | | | LLOYD NOF/U | | | | | | | MT PT FALLS | | | | | | | ASSESS DOC | | | | | | | 0-1 FALLS | | | | | | | W/OUT INJ | | | | | | | PAST YR MT | | | | | | | DOC CUR MEDS | | | | | | | BY PROV MT | | | | | | | PAIN NEG NO | | | | | | | PLAN MT | | | | | | | [...] + + | 06/25/ | Office | PM [address] [facility] | [place], | Shortness of breath | | 2013 | Visit | PULMONARY [address] | Irian Sofia MD | (Primary Dx); | | | | [place], | | Kyphosis of thoracic | | | | [place] [address] | | region | | | | [phone] | | | +--------+---------+ + + + [...] placed the referral to physical therapy at [facility] for the strengthening exercises. Three Breathing Exercises [...] original. Pulmonary Consult Referring Provider: Ralph Chatman [facility] Iraida Wilson Mookie is a 79 y.o. male patient of [...] ve shortness of breath. He contacted his finance business partner this past summer, and he had a [...] TRANSESOPHAGEAL performed by Theo Garza MD at [facility] Knee arthroscopy 2003 Right Total knee arthroplasty 2006 Right Family History: Family History Problem Relation Age of Onset Cancer Mother pancreatic Hypertension Mother Stroke Maternal Grandfather Other (See Comment) Sister bronchiectasis, followed by a lung doctor in [place] Social History: History Social History Marital Status: [...] Topics Concern None Social History Narrative Lives: [place] With: his wifeG[facility] up[facility] Has previously lived in: [place], [place] , [place]: 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 No history of eczema. Neurologic: [...] ena perkins is working (turnaround time at [facility] is 3-4 weeks with tests being sent to [facility] and to be read). If [...] made to ensure accuracy; however, inadvertent computerized core extruder errors may be pre sent. Electronically signed by: Irina Norton MD 06/25/2014 10:59 NBASE [facility] T - 06/25/2014 12:00 AM PDT d ocumented in this encounter Plan of Treatment +--------+---------+ [...] | | | [place] [address] | | | | | | [phone] | | | | | | | [...] [phone], [phone].) Dictated and Signed by: Steffen Arnold MD Electronically signed: 07/29/2014 1:50 PM | | [...] + | MISCELLANEOUS LAB | | | [phone] | + +---------+ + + | MISCELANIOUS LAB | | | [phone] | + +---------+ + + documented in this encounter Visit Diagnoses + + | Diagnosis | + + | Shortness of breath - Primary | + + | 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
--- OUTSIDE RECORDS SUMMARY | ~2020-03-10 | XMS | Encounter Summary ---
Demographics + + + | Address | [address] | | | [place] [address] | + + + | Home Phone | | + + + | Preferred Language | Unknown | + + + | Marital Status | | + + + | Hindu Affiliation | 1041 | + + + [...] [place] | | | | | [address] | | + + + + + | Scot Damico | ECON | [address] | | | | | [place] [address] | | + + + + + Care Team Providers + +------+ + | Care Machine Operator General Name | Role | Phone | + +------+ + PCP | Unavailable | + +------+ + Encounter Details +--------+ + + + + | Date | Type | Department | Care Team | Description | +--------+ + + + + | 07[facility]06/ | [facility] | [facility] | MED CTR XRAY [address] | | | | | | [place] | | | | | | [place] [address] | | | | | | [phone] | | | +--------+ + + + [...] | | | [place] [address] | | | | | | [phone] | | | | | | | | +--------+---------+ + + + documented as of this encounter Visit Diagnoses Not on filedocumented in this encounter"
--- OUTSIDE RECORDS SUMMARY | ~2020-03-10 | XMS | Encounter Summary ---
Demographics + + + | Address | [address] | | | [place] [address] | + + + | Home Phone [...] [place] | | | | | [address] | | + + + + + | Scot Damico | ECON | [address] | | | | | [place] [address] | | + + + + + Care Team Providers + +------+ + | Care Promotional Representative Name | Role | Phone | + [...] | | | | PACE/REC,W/O | | [address] Phone: | | | | | INDUCT | | [phone] | +--------+--------+ + + + + Encounter Details +--------+---------+ + + + | Date | Type | Department | Care Team | Description | +--------+---------+ + + + | 04/13/ | Surgery | [facility] | Jude Agrawal, | EP STUDY POSS | | 2015 | | [facility] | [address] | ABLATION | | | | ELECTROPHYSIOLOGY | CHAR[address] | | | | | [address] | [place] [address] | | | | | [place] | [phone] | | | | | [address] | | | | | | [phone] | | | +--------+---------+ + + + [...] - 01/20/2016 9:20 AM PDT [facility] PATIENT NAME/: Iraida Damico, (1935) DATE OF [...] Medtronic pacemaker, model number A2DR01, serial number [id number]. The device looks great at discharge. He [...] syncope. POSTOPERATIVE DIAGNOSIS: Electrophysiology study for syncope. TRASH COLLECTOR TRUCK DRIVER: Jude Agrawal MD PROCEDURE: The patient presents [...] AV block that is no t reversible. TRASH COLLECTOR TRUCK DRIVER: Jude Agrawal MD. PROCEDURE: The patient presents with symptomatic bradyarrhythmias from intermittent hig h-degree AV block.Medtronic pacemaker, model number A2DR01, serial number [id number]. Device is seen to sense and pace [...] for Congestion. aka: SUDAFED Respiratory Therapy Supplies [facility] S9 auto CPAP 9 cm [...] minutes Thank you for allowing [facility] to be involved in the care of [...] Black or tarry stools Any unusual bleeding 6202[address]3535 [place] [address]. All rights reserve d. This information is [...] D | | | | | | [place] [address] | | | | | | [phone] | | | | | | | [...] | 10:51 AM | | | | ([id number]) | | PDT | | | + [...] | [facility] | | | | [facility] | [facility] | | [facility], | | HEART | | | | [address] [place], [place] | | MEDICAL | | | | [address] | | CENTER | | | | | | LABORATORY | | + + + + + + + + | Specimen | + + | | + + + + + + + | Performing | Address | City/State/Zipcode | Phone Number | | Organization | | | | + + + + + | [facility] | [address] | [place] [address] | | | [facility] | | | | | [...] + + + + + | [facility] | [address] | [place] [address] | | | [facility] | | | | | [...] + + | Glucose | 103 (H)Comment: [place] | 65 - 99 mg/dL | [facility] [...] | >60Comment: GFR <60: | >60 | [facility] | | | GFR | Chronic kidney [...] | | | | | | [facility] | | | | | | [facility], [address] | | | | | | [address] [place] [address] | | | | + + + + + + + + | Specimen | + + | Blood specimen | | (specimen) | + + + + + + + | Performing | Address | City/State/Zipcode | Phone Number | | Organization | | | | + + + + + | [facility] | [address] | [place] [address] | | | [facility] | | | | | [...] 11:43 | | | | | Starting [facility] 01/18/16 at 1047 | | AM PDT [...] 1:04 | | | | | Starting [facility] 01/19/16 at 1219 | | PM [...] | +---+---+ + +-------+ +-------+---+---+ | omeprazole (marlyLOSEC) DR | Given | 01/20/20 | 20 [...] 10:05 | | | | | Intravenous, SUPERVISOR TWISTING DEPARTMENT, Starting | | AM PDT | | | | | 01/18/16 at 0920, For 1 dose, | | | | | | | Pre-op | | | | | | + +---------+ +---+ +---+ +---+---+ | | | +---+---+ documented in this encounter
--- OUTSIDE RECORDS SUMMARY | ~2020-03-10 | XMS | Encounter Summary ---
Demographics + + + | Address | [address] | | | [place] [address] | + + + | Home Phone [...] [place] | | | | | [address] | | + + + + + | Scot Damico | ECON | [address] | | | | | [place] [address] | | + + + + + Care Team Providers + +------+ + | Care Spanish Speaking Babysitter Name | Role | Phone | + +------+ + | Ralph Chatman MD | PCP | | + +------+ + Reason for Visit +--------+ + | Reason | Comments | +--------+ + | Other | [address] | +--------+ + Encounter Details +--------+---------+ + + + | Date | Type | Department | Care Team | Description | +--------+---------+ + + + | 07/29/ | Office | [facility] | [place], | Chronic obstructive | | 2014 | Visit | PULMONARY [address] | Irina Sofia MD | pulmonary disease, | | | | [place], | | unspecified COPD | | | | [place] [address] | | type (HCC); | | | | [phone] | | Pulmonary nodules; | | | | | | Iron deficiency; PANCHITO | | | | | | [...] + + + | Blood Pressure | 120/72 | 07/29/2015 1:16 PM | | | | | PDT | | + + + + + | Pulse | 60 | 07/29/2015 1:16 PM | | | | | PDT | | + + + + + | Temperature | - | - | | + + + + + | Respiratory Rate | 16 | 07/29/2015 1:16 PM | | | | | PDT | | + + + + + | Oxygen Saturation | 98% | 07/29/2015 1:16 PM | | | | | PDT | | + + + + + | Inhaled Oxygen | - | - | | | Concentration | | | | + + + + + | Weight | 86.2 kg (190 lb) | 07/29/2015 1:16 PM | | | | | PDT | | + + + + + | Height | 170.2 cm (5' 7") | 07/29/2015 1:16 PM | | | | | PDT | | + + + + + | Body Mass Index | 29.76 | 07/29/2015 1:16 PM | | | | | PDT | | + + + + + documented in this encounter Patient Instructions Patient Instructions Irina Norton MD - 07/29/2015 2:23 PM PDTI would either take an iron supplement (325mg) plus vitamin C, or make a conscious effort to eat some iron cont aining foods. This may help your fatigue. I want you to continue to work on exercising. Use the as needed inhaler if you need to. If the radiologist finds anything on your CT scan that I did not, we will let you know. Continue to wear your CPAP at night. Electronically signed by Irina Norton MD at 1 2:25 PM PDT documented in this encounter Progress Notes Irina Norton MD - 07/29/2015 1:19 PM PDTFormatting of this note might be differe nt from the original. Pulmonary Follow Up HPI Iraida Damico is a 80 y.o. male patient of Ralph Chatman here today for follo w up of PANCHITO and COPD. At their last visit, we had ordered an ankle brachial index. He continued off of the Symbi ort and Spiriva. He notes he still has "weak legs and out of breath." He had his ankle brachial index testi ng done at [facility] and it was normal. He has continued off of his inhalers. He has the as needed inhaler, but he rarely uses it. When he does use it, he does not think it helps a whole lot. He returns today for routine follow up. Currently he is able to walk 1/2 mile at least at his own pace on level ground. He does not e that he is having back issues, and his back gets tired, and so he tends to try to find a p lace to rest after a block. He does feel he is short of breath at that point. He is doing e xercise on a regular basis. He is doing the exercycle and weights. He can do one flight of s tairs easily, and they stayed in a hotel recently and his notes he went up 3 flights ok ay, though he felt he was huffing and puffing.His notes she could climb the stairs bett er than he could, or at least handled it better psychologically. He is using his CPAP. He still does not like it, but he is using it. If he takes it off, he puts it back on. He is sleeping about 8 hours a night and wakes up feeling rested. He recently had labs and was iron deficient on his recent labs. He has not started on iron replacement. He does eat meat. His last colonoscopy was 2 years ago he thinks. Past Medical History Past Medical History Diagnosis Date Aortic valve regurgitation 2005 s/p AVR 07/2013 Hypertension Degenerative joint disease Epidural abscess 2004 related to septic knee Pneumonia 04/2013 several [...] Laterality: N/A; Surgeon: Theo Garza MD; Location: [facility] Social History: History Social History Marital Status: [...] Narrative Lives: [place] With: his Grew up: [facility] Has previously lived in: [place], [place], born in [place] Exposure to toxic chemicals: possibly as a [...] Cough Medications: Outpatient Encounter Prescriptions as of 07/29/2015 Medication Sig Dispense Refill acetaminophen (TYLENOL) 500 mg tablet Take 500 mg by mouth every 6 hours as needed. [DISCONTINUED] albuterol (PROAIR HFA) 90 mcg/puff inhaler Inhale [...] Take 2 mg by mouth as needed. [DISCONTINUED] losartan (COZAAR) 100 MG tablet Take 100 mg by mouth Daily. metoprolol tartrate (LOPRESSOR) 25 mg tablet Take 25 mg by mouth 2 times daily. omeprazole (PRILOSEC) 20 mg capsule Take 20 mg by mouth every morning (before breakfast ). Respiratory Therapy Supplies [facility] S9 auto CPAP 9 cm H2O. Heater and Humidifier. All necessary supplies. AHI 7.6, 60.5 in supine. Diagnosis Code(s)327.23. Length of Need 99 months. Please send order to [facility]. 1 each 99 No facility-administered encounter medications on file as of 07/29/2015. Review of Systems: General: []Weight loss/gain (over 10 lbs) []Fever/chills/sweats []Night sweats EENT: []Hearing loss [x]Vision loss/change []Sinus congestion/nasal drainage []Nosebleeds [ ]Hoarseness Cardiac: []Chest pain []Palpitations/heart racing [x]Swelling of legs/ankles []Waking up at night short of breath []Difficulty sleeping flat Gastrointestinal: []Nausea/vomiting []Difficulty swallowing [x]Heartburn/acid reflux []Loss of appetite []Ab dominal pain Urologic: []Blood in urine [x]Frequent urination at night []Burning/painful urination []Difficulty wi th urination Objective BP 120/72 mmHg | Pulse 60 | Resp 16 | Ht 1.702 m (5' 7") | Wt 86.183 kg (190 lb) | BMI 29.7 5 kg/m2 | SpO2 98% RA General Appearance: Alert, cooperative, no distress, appears stated age, he is somewhat gr umpy today, and very unhappy about not knowing when his appointment was (he got an estimated date on his check out, and had thought that was the scheduled date, which we had clarified today) Head: Normocephalic, without obvious abnormality, atraumatic Eyes: [...] No deformity Heart: Regular rate and rhythm, systolic murmur and valve click, no rub or gallop Abdomen: Soft, non-tender, non-distended Extremities: No cyanosis, clubbing, trace lower extremity edema Pulses: Radial pulses 2+ and symmetric Skin: Warm and dry Lymph nodes: Cervical and supraclavicular nodes normal Data: Ankle Brachial indices done June 02, 2015 (results sent to Dr. Chatman and not our office, b ut accessed remotely) 1. Normal bilateral lower extremity ankle-brachial indices. Labs: Ref. Range 06/28/2015 00:00 WBC, External Latest Range: 4.5-11 4.5 RBC, External Latest Range: 4.3-5.7 4.50 HGB, External Latest Range: 13.5-18 14.0 HCT, External Latest Range: 41-50 42.5 MCV, External Latest Range: 81-99 94 RDW, External Latest Range: 10.5-15 15.3 (A) PLT, External Latest Range: 140-440 220 Neutrophils %, External Latest Range: 39-80 57.7 Lymphocytes %, External Latest Range: 24-44 27.9 Monocytes %, External Latest Range: 0-12 10.4 Eosinophils %, External Latest Range: 0-6 2.9 Basophils, Absolute Latest Range: 0-2 1.1 Sodium, External Latest Range: 7-21 11.6 Glucose, External Latest Range: 70-100 99 BUN, External Latest Range: 6-23 22 Creatinine, External Latest Range: 0.7-1.11 1.09 Albumin, External Latest Range: 3.5-5 3.7 Calcium, External Latest Range: 8.4-10.2 9.4 ALP, External Latest Range: 30-128 65 ALT, External Latest Range: 7-52 15 AST, External Latest Range: 13-39 20 Bilirubin, Total, External Latest Range: 0-1.2 0.4 Protein, Total, External Latest Range: 6-8 5.9 (A) Ferritin, External Latest Range: 30-400 29.72 (A) GGT, External Latest Range: 5-60 16 eGFR, External No range found 65 Iron, External Latest Range: 37-160 68 TSH, External Latest Range: 0.27-4.2 1.56 Vitamin B12 Latest Range: 211-946 739.6 B-Type Naturetic Peptide, External Latest Range: 0-100 89 Cholesterol, Total, External Latest Range: 200 mg/dl 147 (A) HDL Cholesterol, External Latest Range: 40 mg/dl 39.8 (A) LDL Cholesterol, Direct, External Latest Range: 100 87 (A) Triglycerides, External Latest Range: 30-150 102 Globulin Latest Range: 1.8-3.5 2.2 Ralph Chatman's notes were reviewed in clinic today. Immunization History Administered Date(s) Administered INFLUENZA, >= 4YO W/PRESERVATIVE IM 07/07/2013 INFLUENZA, TRIVALENT PRESERVATIVE FREE (PED/ADOL/ADULT) 06/21/2014 INFLUENZA, UNSPECIFIED FORMULATION 07/11/2015 PNEUMOCOCCAL CONJUGATE 13-VALENT (PCV13) 07/07/2015 ZOSTER, 1 DOSE (ADULT) 07/07/2012 Assessment ICD-10-CM ICD-9-CM 1. Chronic obstructive pulmonary disease, unspecified COPD type ([facility]) J44.9 [address] Very diffic ult to get an accurate idea of how much dyspnea he has. He can walk up three flights of stai rs and exercise for up to an hour, but still complains of feeling fatigued, weak and out of breath. His comments that she thinks some of it is "psychological." He did not feel that any medication for lung disease has helped, and he has gone off of all of these. His imaging has not shown anything remarkable. His functional status certainly has improved, and I suspect his functional status is better than he admits, or at least, I can find no additional pulmonary issues to explain his poor functional status. I continue to encourage regular exercise. 2. Pulmonary nodules R91.[address] scan today, which he was happy to see. 3. Iron deficiency E61.1 280.9 Found on recent labs. I did suggest replacement as I think a nything to improve his fatigue will help. 4. PANCHITO (obstructive sleep apnea) G47.33 327.23 On treatment with good compliance. He does n ot notice a huge benefit, but again, his notices he sleeps much better. Plan 1.Continue off of inhalers. 2.Continue regular exercise. 3.I recommended starting an iron supplement. 4. Continue CPAP with sleeping. 5. I apologized for the confusion regarding his appointment today. He was advised to call if new pulmonary symptoms were to develop. Return to clinic in 6 months, or sooner with concerns. CC: Ralph Chatman Portions of this report were transcribed using voice recognition software. Every effort wa s made to ensure accuracy; however, inadvertent computerized nurse healthcare manager errors may be pre sent. documented in this encounter Plan of Treatment +--------+---------+ + + + | Date | Type | Specialty | Care Team | Description | +--------+---------+ + + + | 05/02/ | Office | Neurology | Dada Goodwin, | | | 2019 | Visit | | MD Gabriel SELLERS | | | | | | [facility] [address] | | | | | | [place] [address] | | | | | | [phone] | | | | | | | | +--------+---------+ + + + documented as of this encounter Visit Diagnoses + + | Diagnosis | + + | Chronic obstructive pulmonary disease, unspecified COPD type (HCC) | + + | Pulmonary nodules Other nonspecific abnormal finding of lung field | + + | Iron deficiency Other disorders of iron metabolism | + + | PANCHITO (obstructive sleep apnea) Obstructive sleep apnea (adult) (pediatric) | + + documented in this encounter
--- OUTSIDE RECORDS SUMMARY | ~2020-03-10 | XMS | Encounter Summary ---
Demographics + + + | Address | [address] | | | [place] [address] | + + + | Home Phone | | + + + | Preferred Language | Unknown | + + + | Marital Status | | + + + | Uatsdin Affiliation | [id number] | + + + [...] [place] | | | | | [address] | | + + + + + | Scot Damico | ECON | [address] | | | | | [place] [address] | | + + + + + Care Team Providers + +------+ + | Care Hardware Supplies Sales Representative Name | Role | Phone | [...] | | | | | | [place] [address] | | | | | | [phone] | | | +--------+ + + + [...] | | | [place] [address] | | | | | | [phone] | | | | | | | | +--------+---------+ + + + documented as of this encounter Visit Diagnoses + + | Diagnosis | + + | Cough - Primary | + + documented in this encounter"
--- OUTSIDE RECORDS SUMMARY | ~2020-03-10 | XMS | Encounter Summary ---
Demographics + + + | Address | [address] | | | [place] [address] | + + + | Home Phone | | + + + | Preferred Language | Unknown | + + + | Marital Status | Single | + + + | Catholic Affiliation | CAT | + + + | Race | White | + + + | Ethnic Group | Not or | + + + Author + + + | Author | [facility] | + + + | Organization | [facility] | + + + | Address | Unknown | + + + | Phone | Unavailable | + + + Support + + +---------+ + | Name | Relationship | Address | Phone | + + +---------+ + | Elizabeth Damico | ECON | Unknown | | + + +---------+ + Care Team Providers + +------+ + | Care Collect On Delivery Clerk Name | Role | Phone | + +------+ + PCP | Unavailable | + +------+ + Encounter Details +--------+ + + + + | Date | Type | Department | Care Team | Description | +--------+ + + + + | 11/26/ | Hospital | Dermatopathology | | | | 2011 | Encounter | [address] | | | | | | Mailcode: CH16D | | | | | | [place] [facility] | | | | | | and Healing, | | | | | | [facility], [facility] | | | | | | [place], [place] | | | | | | [address] | | | | | | [phone] | | | +--------+ + + + [...] | + +--------+ + + + | DERMATOPATHOLOGY(CON | Routin | 11/26/2011 | | Results for this | | SULT) | e | | | procedure are in the | | | | | | results section. | + +--------+ + + + documented in this encounter Results DERMATOPATHOLOGY(CONSULT) (11/26/2011) + + + + + + | Component | Value | Ref Range | Performed | Pathologist | | | | | At | Signature | + + + + + + | DERMATOPATH | SOURCE OF SPECIMEN:A Rt. | | [facility] | | | (CONSULT) | forehead biopsySOURCE | | DERMATOPATH | | | | OF SPECIMEN:B Lt. chest | | OLOGY | | | | biopsy CLINICAL | | | | | | DESCRIPTION:A-B. | | | | | | Darkening of pigmented | | | | | | patch x 2; solar | | | | | | lentigo vs flat SK; | | | | | | r/omelanoma on each. | | | | | | GROSS DESCRIPTION:A. | | | | | | Rt. forehead. The | | | | | | specimen is received in | | | | | | formalin, labeled with | | | | | | thepatient's name, | | | | | | forehead rt, and | | | | | | consists of a pale | | | | | | garcia-brown shave | | | | | | biopsy,measuring 1.1 x | | | | | | 0.6 cm, that is inked, | | | | | | sectioned into four | | | | | | segments andentirely | | | | | | submitted in one | | | | | | cassette. [id number] | | | | | | AB. Lt. chest. The | | | | | | specimen is received in | | | | | | formalin, labeled with | | | | | | thepatient's name, lt. | | | | | | chest, and consists of a | | | | | | pale garcia-brown shave | | | | | | biopsy,measuring 1.1 x | | | | | | 0.9 cm, that is inked, | | | | | | sectioned into four | | | | | | segments andentirely | | | | | | submitted in one | | | | | | cassette. [id number] | | | | | | BGross performed at: | | | | | | [facility], | | | | | | [address] [facility] [facility], | | | | | | [place] | | | | | | [address]. | | | | | | MICROSCOPIC DESCRIPTION: | | | | | | A: In the A | | | | | | specimen, there is a | | | | | | subtle, somewhat | | | | | | asymmetric,predominantly | | | | | | junctional melanocytic | | | | | | neoplasm characterized | | | | | | by confluentnests and | | | | | | single melanocytes | | | | | | distributed along and | | | | | | focally above the | | | | | | basallayer. Most of | | | | | | the melanocytic nuclei | | | | | | are moderately large, | | | | | | some of themare | | | | | | hyperchromatic and | | | | | | pleomorphic, and most of | | | | | | the cells | | | | | | containamphophilic | | | | | | cytoplasm with melanin. | | | | | | There is abundant | | | | | | solar elastosis inthe | | | | | | upper dermis where there | | | | | | is a sparse, | | | | | | lymphocytic infiltrate | | | | | | containingmelanophages. | | | | | | B In the B | | | | | | specimen, there is a | | | | | | poorly circumscribed and | | | | | | asymmetriccompound | | | | | | melanocytic neoplasm | | | | | | characterized by | | | | | | variably sized nests, | | | | | | someof them confluent, | | | | | | as well as single | | | | | | melanocytes distributed | | | | | | irregularlyalong and | | | | | | focally above the basal | | | | | | layer. A few | | | | | | collections of | | | | | | similarappearing | | | | | | melanocytes are present | | | | | | in the upper dermis. | | | | | | Most of themelanocytic | | | | | | nuclei are moderately | | | | | | large, some are | | | | | | hyperchromatic, and | | | | | | mostcontain pale | | | | | | staining cytoplasm. | | | | | | DIAGNOSIS:A: | | | | | | MELANOMA IN SITU, | | | | | | RIGHT FOREHEAD. | | | | | | NOTE: The melanoma in | | | | | | situ extends to the | | | | | | peripheral margins | | | | | | andadditional treatment | | | | | | to ensure complete | | | | | | removal is recommended. | | | | | | B: MELANOMA, | | | | | | LEFT CHEST, MEASURING | | | | | | APPROXIMATELY 0.29MM IN | | | | | | THICKNESS,NON-ULCERATED. | | | | | | NOTE: The | | | | | | melanoma, which has less | | | | | | than one mitosis/mm2 in | | | | | | the dermalcomponent, | | | | | | extends to the | | | | | | peripheral margins and | | | | | | additional treatment | | | | | | toinsure complete | | | | | | removal is recommended. | | | | | | KPW:mm2/24/12 | | | | | | This case also | | | | | | reviewed with Dr. | | | | | | Mata Lu Jr. | | | | | | My electronic | | | | | | [...] Lu | | | | | | Pato | | | | | | natalie Signed 12/03/2011 | | | | | | 12:01PM | | | | + + + + + + + + | Specimen | + + | | + + + + + + + | Performing | Address | City/State/Zipcode | Phone Number | | Organization | | | | + + + + + | [facility] | Mailcode [address] | [place] [address] | | | DERMATOPATHOLOGY | [address] | | | + + + + + documented in this encounter Visit Diagnoses Not on filedocumented in this encounter"
--- OUTSIDE RECORDS SUMMARY | ~2020-03-10 | XMS | Encounter Summary ---
Demographics + + + | Address | [address] | | | [place] [address] | + + + | Home Phone [...] Team Providers + +------+ + | Care Cigarette Packing Machine Operator Name | Role | Phone [...] as of this encounter Progress Notes Interface, Quoter In - 2005 7:20 PM PDTClinic Date: 01/27/2004 Clinic: Subjective: This is a 68-year-old male with a history of epidural abscess. Blood cultures were positive for Enterococcus fecalis. He underwent L3-4 laminectomy in November 2003 here at [facility]. He also underwent 6 weeks of intravenous [...] Maria C Vences M.D. SHELBY / WALDO [id number] / [id number] / [id number] / Tdocumented in this encounter Plan of Treatment Not on filedocumented as of this encounter Visit Diagnoses Not on filedocumented in this encounter"
--- OUTSIDE RECORDS SUMMARY | ~2020-03-10 | XMS | Encounter Summary ---
Demographics + + + | Address | [address] | | | [place] [address] | + + + | Home Phone [...] Author + + + | Author | [facility] | + + + | Organization | [facility] | + + + | Address | Unknown | + + + | Phone | Unavailable | + + + Support + + +---------+ + | Name | Relationship | Address | Phone | + + +---------+ + | Elizabeth Damico | ECON | Unknown | | + + +---------+ + Care Team Providers + +------+ + | Care Jacquard Fixer Name | Role | Phone | + [...] [facility] | | | | | | [facility] | | | | | | and Healing, | | | | | | [facility] [address], [facility] | | | | | | [place], [place] | | | | | | [address] | | | | | | [phone] | | | +--------+ + + + [...] DESCRIPTION:A: | | | | | | [place] patch; r/o BCC.B: | | | | [...] [place], | | | | | | [id number]. The surgical | | | | | [...] | | | | | | skin, [id number]. The | | | | | | [...] [facility] | [address] | [place] [address] | | | DERMATOPATHOLOGY | [address] | | | + + + + + documented in this encounter Visit Diagnoses Not on filedocumented in this encounter
--- OUTSIDE RECORDS SUMMARY | ~2020-03-10 | XMS | Encounter Summary ---
Demographics + + + | Address | [address] | | | [place] [address] | + + + | Home Phone | | + + + | Preferred Language | Unknown | + + + | Marital Status | | + + + | Quaker Affiliation | 1041 | + + + | Race | Unknown | + + + | Ethnic Group | Unknown | + + + Author + + + | Author | [facility] | | | and [place] | + + + | Organization | [facility] | | [...] [place] | | | | | [address] | | + + + + + | Scot Damico | ECON | [address] | | | | | [place] [address] | | + + + + + Care Team Providers + +------+ + | Care Commercial Project Manager Name | Role | Phone | + +------+ + | Ralph Chatman MD | PCP | | + +------+ + Encounter Details +--------+ + + + + | Date | Type | Department | Care Team | Description | +--------+ + + + + | 01/26/ | Hospital | [facility] | Mio Hughes, | | | 2012 | Encounter | MED CTR XRAY [address] | MD [address] | | | | | [place] | [address] [place], [place] | | | | | [place] [address] | [address] | | | | | [phone] | | | +--------+ + + + [...] | | 2020 | Visit | | MD Gabriel SELLERS | | | | | | [address] | | | | | | [place] [address] | | | | | | [phone] | | | | | | | | +--------+---------+ + + + documented as of this encounter Procedures + +--------+ + + + | Procedure Name | Priori | Date/Time | Associated Diagnosis | Comments | | | ty | | | | + +--------+ + + + | ECHO COMPLETE | Routin | 01/26/2013 | | Results for this | | | e | 3:42 PM | | procedure are in the | | | | PDT | | results section. | + +--------+ + + + documented in this encounter Results ECHO Complete (01/26/2013 3:42 PM PDT) + + | Specimen | + + | | + + + + + | Narrative | Performed At | + + + | [facility] Diagnostic [facility] | [place] | | Department [address] [facility] | [facility] | | [ rep ct [address]] [ rep ct [facility] | | st zip] Signed | - IMAGING | | | | | Patient Name: IRAIDA DAMICO Physician: | | | : 1935 Age: 77 Sex: M Unit #: [id number] | | | Exam Date: 01/26/13 [place] [facility] [place] | | | Report #: [id number] Page: | | | %(RAD)RES..mtdd.print.filter("pg") of %(RAD) | | | RES..mtdd.print.filter("tpg") | | | | | | Accession Number: [id number] | | | E C H O C A R D I O G R A P H Y R E P O R T | | | HEIGHT: 5'11" WEIGHT: 185# | | | FURNITURE UPHOLSTERY MECHANIC: [place] REFERRING DR: WILLIAM MARTINEZ DR: | | | LEA DIAGNOSIS: AI | | | | | | M E A S U R E M E N T S | | | Aortic Root: 36 mm LV | | | Diameter-diastole: 64 mm Aortic Cusp Sep: 23 mm | | | LV Diameter--systole: 47 mm LA: | | | 43 mm Fractional Shortenin % | | | IVS--diastole: 12 mm PFV Aortic Valve: | | | IVS--systole: 13 mm MPG Mitral | | | Valve: mmHg LVPW--diastole: 7 mm | | | PFV TR Jet: 2.2 m/s LVPW--systole: | | | 17 mm RA/RV PP.4 mmHg | | | | | | ECHOCARDIOGRAPHY, 01/26/2013 INDICATIONS FOR | | | PROCEDURE: AORTIC VALVE REGURGITATION. TECHNICAL DATA: | | | The quality of the study is adequate. This is a 2-D echo / M-mode | | | / Doppler / color Doppler study. FINDINGS: Left atrial | | | size is mildly dilated. Left ventricular size is mildly dilated with | | | mild eccentric left ventricular hypertrophy. Left ventricular | | | systolic function is preserved. LVEF is 60% . Aortic root is | | | mildly dilated measuring 3.6 cm in diameter. There is grade 1 left | | | ventricular diastolic dysfunction. Right atrial size is normal. | | | Right ventricular size is normal with normal wall thickness and | | | normal right ventricular systolic function. Pericardium is normal. | | | The pulmonary artery is normal. Aortic valve is trileaflet with | | | mild thickening and calcification. Aortic valve opens adequately. | | | There is at least moderate aortic valve regurgitation. Mitral | | | valve is mildly thickened with mild mitral valve regurgitation. | | | Pulmonic valve is normal. Tricuspid valve is normal with mild | | | tricuspid valve regurgitation. IVC is normal. IMPRESSION: | | | 1. MILD LEFT ATRIAL DILATATION. 2. MILD LEFT | | | VENTRICULAR DILATATION WITH MILD ECCENTRIC LEFT VENTRICULAR | | | HYPERTROPHY. LEFT VENTRICULAR SYSTOLIC FUNCTION IS PRESERVED. | | | LVEF IS 60%. 3. GRADE 1 LEFT VENTRICULAR DIASTOLIC | | | DYSFUNCTION. 4. MILDLY THICKENED AND CALCIFIED | | | TRILEAFLET AORTIC VALVE WITH ADEQUATE OPENING. THERE IS AT LEAST | | | MODERATE AORTIC VALVE REGURGITATION. 5. MILD AORTIC | | | ROOT DILATATION MEASURING 3.6 CM IN DIAMETER. 6. MILDLY | | | THICKENED MITRAL VALVE WITH MILD MITRAL VALVE REGURGITATION. | | | 7. MILD TRICUSPID VALVE REGURGITATION. 8. WHEN | | | COMPARE TO THE ECHOCARDIOGRAPHY ON 07/07/2012, THE LEFT VENTRICULAR | | | SIZE SEEMS TO BE MILDLY DILATED ON THIS STUDY. Dictated | | | Date/Time: 01/26/2013 15:42 Transcribed Date/Time: 01/26/2013 | | | 18:53 Wallpaper Inspector: <<Signature | | | on File>> | | | [place] | | | MD Jenny [facility]01/27/13 1304 <Electronically signed by | | | Mirna Alvarado MD, [facility], FACP, FASE, FASNC> [place] | | | MD Jenny [facility] 01/26/13 1542 Wallpaper Inspector: Andreina | | | Hykeohzudswrj36/22/13 4473 Mio Hughes MD | | | | | + + + + + + + + | Performing | Address | City/State/Zipcode | Phone Number | | Organization | | | | + + + + + | [address] | [address] | [place] | [phone] | | [facility] | | [address] | | | - IMAGING | | | | + + + + + documented in this encounter Visit Diagnoses Not on filedocumented in this encounter
--- OUTSIDE RECORDS SUMMARY | ~2020-03-10 | XMS | Encounter Summary ---
Demographics + + + | Address | [address] | | | [place] [address] | + + + | Home Phone | | + + + | Preferred Language | Unknown | + + + | Marital Status | | + + + | Episcopalian Affiliation | 1041 | + + + | Race | Unknown | + + + | Ethnic Group | Unknown | + + + Author + + + | Author | [facility] | | | and [place] | + + + | Organization | [facility] | | | [...] [place] | | | | | [address] | | + + + + + | Scot Damico | ECON | [address] | | | | | [place] [address] | | + + + + + Care Team Providers + +------+ + | Care Water Quality Analyst Name | Role | Phone | + +------+ + | Milvia Snyder MD | PCP | | + +------+ + Reason for Visit +--------+ + | Reason | Comments | +--------+ + | Other | | +--------+ + Encounter Details +--------+ + + + + | Date | Type | Department | Care Team | Description | +--------+ + + + + | 12/06/ | Telephone | [facility] | Dada Goodwin, | Other | | 2020 | | NEUROLOGY [address] | | | | [address] | [facility] [address] | | | | | [place], [place] | [place] [address] | | | | | [address] | [phone] | | | | | [phone] | | | +--------+ + + + [...] D | | | | | | [place] [address] | | | | | | [phone] | | | | | | | | +--------+---------+ + + + documented as of this encounter Visit Diagnoses Not on filedocumented in this encounter"
--- OUTSIDE RECORDS SUMMARY | ~2020-03-10 | XMS | Encounter Summary ---
Demographics + + + | Address | [address] | | | [place] [address] | + + + | Home Phone | | + + + | Preferred Language | Unknown | + + + | Marital Status | | + + + | Christian Affiliation | 1041 | + + + | Race | Unknown | + + + | Ethnic Group | Unknown | + + + Author + + + | Author | [facility] | | | and [place] | + + + | Organization | [facility] | | | and [...] [place] | | | | | [address] | | + + + + + | Scot Damico | ECON | [address] | | | | | [place] [address] | | + + + + + Care Team Providers + +------+ + | Care Head Teacher Name | Role | Phone | + +------+ + PCP | Unavailable | + +------+ + Encounter Details +--------+ + + + + | Date | Type | Department | Care Team | Description | +--------+ + + + + | 12/21/ | Hospital [facility] | Zeferino Reeves, | | | 2009 - | Encounter | SURGICAL ORTHO [address] | [address] | | | | | [address] [facility] | [address] | | | 12/23/ | | [place] | [place] [address] | | | 2009 | | [address] | [phone] | | | | | [phone] | | | +--------+ + + + [...] | | | [place] [address] | | | | | | [phone] | | | | | | | [...] + + + | Exam Performed Location: [facility] | MISCELANIOUS | | LUMBAR SPINE [...] 07/31/2013 7:52 PM PDT Exam Performed Location: [facility] | [facility]INICAL INFORMATION:74-year-old with lumbar | | fusion.COMPARISON:Plain [...] + | MISCELLANEOUS LAB | | | [phone] | + +---------+ + + | MISCELANIOUS LAB | | | [phone] | + +---------+ + + Historical Imaging Result (12/21/2009 11:28 AM PDT) + + | Specimen | + + | | + + + + + | Narrative | Performed At | + + + | Exam Performed Location: [facility] | MISCELANIOUS | | PA AND [...] 07/31/2013 7:40 PM PDT Exam Performed Location: [facility] AND LATERAL CHEST X-RAYCLINICAL INFORMATION:Preoperative for [...] + | MISCELLANEOUS LAB | | | [phone] | + +---------+ + + | MISCELANIOUS LAB | | | [phone] | + +---------+ + + documented in this encounter Visit Diagnoses Not on filedocumented in this encounter"
--- OUTSIDE RECORDS SUMMARY | ~2020-03-10 | XMS | Encounter Summary ---
Demographics + + + | Address | [address] | | | [place] [address] | + + + | Home Phone | | + + + | Preferred Language | Unknown | + + + | Marital Status | | + + + | Restorationist Affiliation | 1041 | + + + [...] [place] | | | | | [address] | | + + + + + | Scot Damico | ECON | [address] | | | | | [place] [address] | | + + + + + Care Team Providers + +------+ + | Care Sanitation Worker Hosing Machinery Name | Role | Phone | + [...] + + | 07/29/ | Office | [facility] | [place], | COPD (chronic | | 2013 | Visit | PULMONARY [address] | Irina Sofia MD | obstructive | | | | [place], | | pulmonary disease) | | | | [place] [address] | | ([facility]) (Primary Dx) | | | | [phone] | | | +--------+---------+ + + + [...] Do an overnight oxygen test through [employer]. Call the [employer] before yo u pick it up to make sure they have a box available. You will cotton picking machine operator a box at the [employer]. Do the test on room air. 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 Electronically signed [...] | | | | | | DRIVE [facility] | | | | | | [place] [address] | | | | | | [phone] | | | | | | | [...]
--- OUTSIDE RECORDS SUMMARY | ~2020-03-10 | XMS | Encounter Summary ---
Demographics + + + | Address | [address] | | | [place] [address] | + + + | Home Phone [...] Team Providers + +------+ + | Care Screening Representative Name | Role | Phone | [...] as of this encounter Progress Notes Interface, Wire Twister In - 2005 6:08 PM PDT [place] [address] [address] or November 29, 2003 Ralph Chatman M.D. [address] [address] RE: PRABHAKAR DAMICO MR #: [id number] Dear Dr. Chatman: It was our pleasure to evaluate Mr. Damico who is your patient. The Infectious Disease Team was consulted regarding Mr. Damico's epidural abscess. Mr. Damico developed fevers and back pain around November 20, 2003. He was evaluated and admitted to [facility] on November 22, 2003, where an MRI showed an epidural abscess in the L3-L4 region. He was transferred to [facility] on November 24, 2003, and underwent L4-L5 laminectomy as well as foraminotomy on November 25, 2002. Of note, his blood cultures from [facility] grew for the 4 bottles for Enterococcus faecalis. His blood cultures at [facility] are all negative today. Mr. Damico most [...] questions. We can be reached to the [facility] data entry operator: [phone]. Sincerely, MD Nabil Lundy MD / [id number] / [id number] / [id number] / Tdocumented in this encounter Plan of Treatment Not on filedocumented as of this encounter Visit Diagnoses Not on filedocumented in this encounter"
--- OUTSIDE RECORDS SUMMARY | ~2020-03-10 | XMS | Encounter Summary ---
Demographics + + + | Address | [address] | | | [place] [address] | + + + | Home Phone | | + + + | Preferred Language | Unknown | + + + | Marital Status | | + + + | Baptism Affiliation | 1041 | + + + | Race | Unknown | + + + | Ethnic Group | Unknown | + + + Author + + + | Author | [facility] | | | and [place] | + + + | Organization | [facility] | | | [...] [place] | | | | | [address] | | + + + + + | Scot Damico | ECON | [address] | | | | | [place] [address] | | + + + + + Care Team Providers + +------+ + | Care Storage Facility Rental Clerk Name | Role | Phone | [...] | | | | | | [place] [address] | | | | | | [phone] | | | +--------+ + + + [...] | | | [place] [address] | | | | | | [phone] | | | | | | | | +--------+---------+ + + + documented as of this encounter Results PFT PULMONARY FUNCTION TESTING ORDERS Full PFT ([place] w/BD, lung volumes, diffusion)?: Yes (08/03/2014 9:26 [...] | | Irina Norton MD 08/03/2014 9:22 [facility] | | | [facility] CC: Ralph Morris Compa | | + [...] signed by: Irina Norton, | | 08/03/2014 9:22[facility] Ralph Chatman | |[facility] | | | |CC: Ralph Chatman | + + documented in this encounter Visit Diagnoses + + | Diagnosis | + + | Cough - Primary | + + documented in this encounter"
--- OUTSIDE RECORDS SUMMARY | ~2020-03-10 | XMS | Encounter Summary ---
Demographics + + + | Address | [address] | | | [place] [address] | + + + | Home Phone | | + + + | Preferred Language | Unknown | + + + | Marital Status | | + + + | Shinto Affiliation | 1041 | + + + | Race | Unknown | + + + | Ethnic Group | Unknown | + + + Author + + + | Author | [facility] | | | and [place] | + + + | Organization | [facility] | | | [...] [place] | | | | | [address] | | + + + + + | Scot Damico | ECON | [address] | | | | | [place] [address] | | + + + + + Care Team Providers + +------+ + | Care Sales Forecast Analyst Name | Role | Phone | + +------+ + PCP | Unavailable | + +------+ + Encounter Details +--------+ + + + + | Date | Type | Department | Care Team | Description | +--------+ + + + + | 10/14/ | Hospital | [facility] | Zeferino Reeves, | | | 2008 | Encounter | FAMILY NUCLEAR | MD [address] | | | | | MEDICINE [address] | | | | | [address] | [place] [address] | | | | | [place], [place] | [phone] | | | | | [address] | | | | | | [phone] | | | +--------+ + + + [...] [place] | | | | | | [place] [address] | | | | | | [phone] | | | | | | | | +--------+---------+ + + + documented as of this encounter Visit Diagnoses Not on filedocumented in this encounter"
--- OUTSIDE RECORDS SUMMARY | ~2020-03-10 | XMS | Encounter Summary ---
Demographics + + + | Address | [address] | | | [place] [address] | + + + | Home Phone | | + + + | Preferred Language | Unknown | + + + | Marital Status | Single | + + + | Faith Affiliation | CAT | + + + | Race | White | + + + | Ethnic Group | Not or | + + + Author + + + | Author | [facility] | + + + | Organization | [facility] | + + + | Address | Unknown | + + + | Phone | Unavailable | + + + Support + + +---------+ + | Name | Relationship | Address | Phone | + + +---------+ + | Elizabeth Damico | ECON | Unknown | | + + +---------+ + Care Team Providers + +------+ + | Care Thickener Operator Name | Role | Phone | + +------+ + PCP | Unavailable | + +------+ + Encounter Details +--------+ + + + + | Date | Type | Department | Care Team | Description | +--------+ + + + + | 12/08/ | Hospital | Dermatopathology | | | | 2012 | Encounter | [address] | | | | | | Mailcode: [id number] | | | | | | [place] [facility] | | | | | | and Healing, | | | | | | [facility], [facility] | | | | | | [place], [place] | | | | | | [address] | | | | | | [phone] | | | +--------+ + + + [...] + + | DERMATOPATHOLOGY(WET | Routin | 12/08/2012 | | Results for this | | [place]) | e | | | procedure are in the | | | | | | results section. | + +--------+ + + + documented in this encounter Results DERMATOPATHOLOGY(WET [facility]) (12/08/2012) + + + + + + [...] | | | | | [place], R/O melanoma. | | | | | | GROSS | | | | | | DESCRIPTION:Received in | | | | | | formalin is a specimen | | | | | | labeled Iraida Damico | | | | | | [place]:A: Specimen is | | | | | | labeled "scalp" and | | | | | | consists of an irregular | | | | | | shave oftan-white skin, | | | | | | [id number]. The surgical | | | | | [...] | | | | | | DIAGNOSIS:SOLAR LENTIGO. 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 There | | | | | | is no evidence of a | | | | | | melanocytic | | | | | | proliferation in | | | | | | thesesections. | | | | | | KPW:/ My | | | | | | [...] Lu | | | | | | IsidoroPathologistElectroni | | | | | | natalie Signed 12/19/2012 | | | | | | 7:23PM | | | | + + + + + + + + | Specimen | + + | | + + + + + + + | Performing | Address | City/State/Zipcode | Phone Number | | Organization | | | | + + + + + | [facility] | [address] | [place] [address] | | | DERMATOPATHOLOGY | [address] | | | + + + + + documented in this encounter Visit Diagnoses Not on filedocumented in this encounter
--- OUTSIDE RECORDS SUMMARY | ~2020-03-10 | XMS | Encounter Summary ---
Demographics + + + | Address | [address] | | | [place] [address] | + + + | Home Phone | | + + + | Preferred Language | Unknown | + + + | Marital Status | | + + + | Pentecostal Affiliation | 1041 | + + + | Race | Unknown | + + + | Ethnic Group | Unknown | + + + Author + + + | Author | [facility] | | | and [place] | + + + | Organization | [facility] | | | [...] [place] | | | | | [address] | | + + + + + | Scot Damico | ECON | [address] | | | | | [place] [address] | | + + + + + Care Team Providers + +------+ + | Care Computer Operations Technician Name | Role | Phone | + +------+ + | Ralph Chatman MD | PCP | | + +------+ + Encounter Details +--------+ + + + + | Date | Type | Department | Care Team | Description | +--------+ + + + + | 06/30/ | Abstract | [facility] | [place], | | | 2014 | | PULMONARY [address] | Irina Sofia MD | | | | | [place], | | | | | | [place] [address] | | | | | | [phone] | | | +--------+ + + + [...] | | | [place] [address] | | | | | | [phone] | | | | | | | | +--------+---------+ + + + documented as of this encounter Procedures + +--------+ + + + | Procedure Name | Priori | Date/Time | Associated Diagnosis | Comments | | | ty | | | | + +--------+ + + + | EXTERNAL LAB: TITUS | Routin | 06/28/2015 | | Results for this | | | e | | | procedure are in the | | | | | | results section. | + +--------+ + + + | EXTERNAL LAB: | Routin | 06/28/2015 | | Results for this | | GLUCOSE | e | | | procedure are in the | | | | | | results section. | + +--------+ + + + | EXTERNAL LAB: GGT | Routin | 06/28/2015 | | Results for this | | | e | | | procedure are in the | | | | | | results section. | + +--------+ + + + | EXTERNAL LAB: ALT | Routin | 06/28/2015 | | Results for this | | | e | | | procedure are in the | | | | | | results section. | + +--------+ + + + | EXTERNAL LAB: AST | Routin | 06/28/2015 | | Results for this | | | e | | | procedure are in the | | | | | | results section. | + +--------+ + + + | EXTERNAL LAB: | Routin | 06/28/2015 | | Results for this | | ALKALINE PHOSPHATASE | e | | | procedure are in the | | | | | | results section. | + +--------+ + + + | EXTERNAL LAB: | Routin | 06/28/2015 | | Results for this | | BILIRUBIN, TOTAL | e | | | procedure are in the | | | | | | results section. | + +--------+ + + + | EXTERNAL LAB: | Routin | 06/28/2015 | | Results for this | | ALBUMIN | e | | | procedure are in the | | | | | | results section. | + +--------+ + + + | EXTERNAL LAB: | Routin | 06/28/2015 | | Results for this | | PROTEIN, TOTAL | e | | | procedure are in the | | | | | | results section. | + +--------+ + + + | EXTERNAL LAB: | Routin | 06/28/2015 | | Results for this | | CALCIUM | e | | | procedure are in the | | | | | | results section. | + +--------+ + + + | EXTERNAL LAB: SODIUM | Routin | 06/28/2015 | | Results for this | | | e | | | procedure are in the | | | | | | results section. | + +--------+ + + + | EXTERNAL LAB: | Routin | 06/28/2015 | | Results for this | | URINALYSIS | e | | | procedure are in the | | | | | | results section. | + +--------+ + + + | EXTERNAL LAB: IRON | Routin | 06/28/2015 | | Results for this | | TOTAL | e | | | procedure are in the | | | | | | results section. | + +--------+ + + + | EXTERNAL LAB: | Routin | 06/28/2015 | | Results for this | | FERRITIN | e | | | procedure are in the | | | | | | results section. | + +--------+ + + + | EXTERNAL LAB: GRACIELA | Routin | 06/28/2015 | | Results for this | | | e | | | procedure are in the | | | | | | results section. | + +--------+ + + + | EXTERNAL LAB: TSH | Routin | 06/28/2015 | | Results for this | | | e | | | procedure are in the | | | | | | results section. | + +--------+ + + + | EXTERNAL LAB: Kimberlyn CARROLL | Routin | 06/28/2015 | | Results for this | | NATURETIC PEPTIDE | e | | | procedure are in the | | | | | | results section. | + +--------+ + + + | EXTERNAL LAB: | Routin | 06/28/2015 | | Results for this | | TRIGLYCERIDES | e | | | procedure are in the | | | | | | results section. | + +--------+ + + + | EXTERNAL LAB: | Routin | 06/28/2015 | | Results for this | | CHOLESTEROL, HDL | e | | | procedure are in the | | | | | | results section. | + +--------+ + + + | EXTERNAL LAB: | Routin | 06/28/2015 | | Results for this | | CHOLESTEROL, TOTAL | e | | | procedure are in the | | | | | | results section. | + +--------+ + + + | EXTERNAL LAB: | Routin | 06/28/2015 | | Results for this | | CHOLESTEROL, LDL | e | | | procedure are in the | | DIRECT | | | | results section. | + +--------+ + + + | EXTERNAL LAB: | Routin | 06/28/2015 | | Results for this | | MICROALBUMIN/CREATIN | e | | | procedure are in the | | INE RATIO, URINE | | | | results section. | + +--------+ + + + | EXTERNAL LAB: EGFR | Routin | 06/28/2015 | | Results for this | | | e | | | procedure are in the | | | | | | results section. | + +--------+ + + + | EXTERNAL LAB: | Routin | 06/28/2015 | | Results for this | | CREATININE | e | | | procedure are in the | | | | | | results section. | + +--------+ + + + | GLOBULIN | Routin | 06/28/2015 | | Results for this | | | e | | | procedure are in the | | | | | | results section. | + +--------+ + + + documented in this encounter Results GLOBULIN (06/28/2015) + +-------+ + + + | Component | Value | Ref Range | Performed | Pathologist | | | | | At | Signature | + +-------+ + + + | Globulin | 2.2 | 1.8 - 3.5 | | | + +-------+ + + + | Vitamin B12 | 739.6 | 211 - 946 | | | + +-------+ + + + + + | Specimen | + + | | + + External Lab: TITUS (06/28/2015) + +-------+ + + + | Component | Value | Ref Range | Performed | Pathologist | | | | | At | Signature | + +-------+ + + + | BUN, | 22 | 6 - 23 | EXTERNAL | | | External | | | LAB | | + +-------+ + + + + + | Resulting Agency Comment | + + | [facility] | + + + +---------+ + + | Performing | Address | City/State/Zipcode | Phone Number | | Organization | | | | + +---------+ + + | EXTERNAL LAB | | | | + +---------+ + + External Lab: Glucose (06/28/2015) + +-------+ + + + | Component | Value | Ref Range | Performed | Pathologist | | | | | At | Signature | + +-------+ + + + | Glucose, | 99 | 70 - 100 | EXTERNAL | | | External | | | LAB | | + +-------+ + + + + + | Resulting Agency Comment | + + | [facility] | + + + +---------+ + + | Performing | Address | City/State/Zipcode | Phone Number | | Organization | | | | + +---------+ + + | EXTERNAL LAB | | | | + +---------+ + + External Lab: GGT (06/28/2015) + +-------+ + + + | Component | Value | Ref Range | Performed | Pathologist | | | | | At | Signature | + +-------+ + + + | GGT, | 16 | 5 - 60 | EXTERNAL | | | External | | | LAB | | + +-------+ + + + + + | Resulting Agency Comment | + + | [facility] | + + + +---------+ + + | Performing | Address | City/State/Zipcode | Phone Number | | Organization | | | | + +---------+ + + | EXTERNAL LAB | | | | + +---------+ + + External Lab: ALT (06/28/2015) + +-------+ + + + | Component | Value | Ref Range | Performed | Pathologist | | | | | At | Signature | + +-------+ + + + | ALT, | 15 | 7 - 52 | EXTERNAL | | | External | | | LAB | | + +-------+ + + + + + | Resulting Agency Comment | + + | [facility] | + + + +---------+ + + | Performing | Address | City/State/Zipcode | Phone Number | | Organization | | | | + +---------+ + + | EXTERNAL LAB | | | | + +---------+ + + External Lab: AST (06/28/2015) + +-------+ + + + | Component | Value | Ref Range | Performed | Pathologist | | | | | At | Signature | + +-------+ + + + | AST, | 20 | 13 - 39 | EXTERNAL | | | External | | | LAB | | + +-------+ + + + + + | Resulting Agency Comment | + + | [facility] | + + + +---------+ + + | Performing | Address | City/State/Zipcode | Phone Number | | Organization | | | | + +---------+ + + | EXTERNAL LAB | | | | + +---------+ + + External Lab: Alkaline Phosphatase (06/28/2015) + +-------+ + + + | Component | Value | Ref Range | Performed | Pathologist | | | | | At | Signature | + +-------+ + + + | ALP, | 65 | 30 - 128 | EXTERNAL | | | External | | | LAB | | + +-------+ + + + + + | Resulting Agency Comment | + + | [facility] | + + + +---------+ + + | Performing | Address | City/State/Zipcode | Phone Number | | Organization | | | | + +---------+ + + | EXTERNAL LAB | | | | + +---------+ + + External Lab: Bilirubin, Total (06/28/2015) + +-------+ + + + | Component | Value | Ref Range | Performed | Pathologist | | | | | At | Signature | + +-------+ + + + | Bilirubin, | 0.4 | 0 - 1.2 | EXTERNAL | | | Total, | | | LAB | | | External | | | | | + +-------+ + + + + + | Resulting Agency Comment | + + | [facility] | + + + +---------+ + + | Performing | Address | City/State/Zipcode | Phone Number | | Organization | | | | + +---------+ + + | EXTERNAL LAB | | | | + +---------+ + + External Lab: Albumin (06/28/2015) + +-------+ + + + | Component | Value | Ref Range | Performed | Pathologist | | | | | At | Signature | + +-------+ + + + | Albumin, | 3.7 | 3.5 - 5 | EXTERNAL | | | External | | | LAB | | + +-------+ + + + + + | Resulting Agency Comment | + + | [facility] | + + + +---------+ + + | Performing | Address | City/State/Zipcode | Phone Number | | Organization | | | | + +---------+ + + | EXTERNAL LAB | | | | + +---------+ + + External Lab: Protein, Total (06/28/2015) + +---------+ + + + | Component | Value | Ref Range | Performed | Pathologist | | | | | At | Signature | + +---------+ + + + | Protein, | 5.9 (A) | 6 - 8 | EXTERNAL | | | Total, | | | LAB | | | External | | | | | + +---------+ + + + + + | Resulting Agency Comment | + + | [facility] | + + + +---------+ + + | Performing | Address | City/State/Zipcode | Phone Number | | Organization | | | | + +---------+ + + | EXTERNAL LAB | | | | + +---------+ + + External Lab: Calcium (06/28/2015) + +-------+ + + + | Component | Value | Ref Range | Performed | Pathologist | | | | | At | Signature | + +-------+ + + + | Calcium, | 9.4 | 8.4 - 10.2 | EXTERNAL | | | External | | | LAB | | + +-------+ + + + + + | Resulting Agency Comment | + + | [facility] | + + + +---------+ + + | Performing | Address | City/State/Zipcode | Phone Number | | Organization | | | | + +---------+ + + | EXTERNAL LAB | | | | + +---------+ + + External Lab: Sodium (06/28/2015) + +-------+ + + + | Component | Value | Ref Range | Performed | Pathologist | | | | | At | Signature | + +-------+ + + + | Sodium, | 11.6 | 7 - 21 | EXTERNAL | | | External | | | LAB | | + +-------+ + + + + + | Resulting Agency Comment | + + | [facility] | + + + +---------+ + + | Performing | Address | City/State/Zipcode | Phone Number | | Organization | | | | + +---------+ + + | EXTERNAL LAB | | | | + +---------+ + + External Lab: Urinalysis (06/28/2015) + + + + + + | Component | Value | Ref Range | Performed | Pathologist | | | | | At | Signature | + + + + + + | UA Blood, | NEGATIVE | | EXTERNAL | | | External | | | LAB | | + + + + + + | UA Glucose, | NEGATIVE | | EXTERNAL | | | External | | | LAB | | + + + + + + | UA Ketones, | NEGATIVE | | EXTERNAL | | | External | | | LAB | | + + + + + + | UA Ph, | 5 | | EXTERNAL | | | External | | | LAB | | + + + + + + | UA | NEGATIVE | | EXTERNAL | | | Proteins, | | | LAB | | | External | | | | | + + + + + + + + | Resulting Agency Comment | + + | [facility] | + + + +---------+ + + | Performing | Address | City/State/Zipcode | Phone Number | | Organization | | | | + +---------+ + + | EXTERNAL LAB | | | | + +---------+ + + External Lab: Iron Total (06/28/2015) + +-------+ + + + | Component | Value | Ref Range | Performed | Pathologist | | | | | At | Signature | + +-------+ + + + | Iron, | 68 | 37 - 160 | EXTERNAL | | | External | | | LAB | | + +-------+ + + + + + | Resulting Agency Comment | + + | [facility] | + + + +---------+ + + | Performing | Address | City/State/Zipcode | Phone Number | | Organization | | | | + +---------+ + + | EXTERNAL LAB | | | | + +---------+ + + External Lab: Ferritin (06/28/2015) + + + + + + | Component | Value | Ref Range | Performed | Pathologist | | | | | At | Signature | + + + + + + | Ferritin, | 29.72 (A) | 30 - 400 | EXTERNAL | | | External | | | LAB | | + + + + + + + + | Resulting Agency Comment | + + | [facility] | + + + +---------+ + + | Performing | Address | City/State/Zipcode | Phone Number | | Organization | | | | + +---------+ + + | EXTERNAL LAB | | | | + +---------+ + + External Lab: CBC (06/28/2015) + + + + + + | Component | Value | Ref Range | Performed | Pathologist | | | | | At | Signature | + + + + + + | WBC, | 4.5 | 4.5 - 11 | EXTERNAL | | | External | | | LAB | | + + + + + + | HGB, | 14.0 | 13.5 - 18 | EXTERNAL | | | External | | | LAB | | + + + + + + | HCT, | 42.5 | 41 - 50 | EXTERNAL | | | External | | | LAB | | + + + + + + | PLT, | 220 | 140 - 440 | EXTERNAL | | | External | | | LAB | | + + + + + + | Neutrophils | 57.7 | 39 - 80 | EXTERNAL | | | %, | | | LAB | | | External | | | | | + + + + + + | Lymphocytes | 27.9 | 24 - 44 | EXTERNAL | | | %, | | | LAB | | | External | | | | | + + + + + + | Monocytes | 10.4 | 0 - 12 | EXTERNAL | | | %, External | | | LAB | | + + + + + + | Eosinophils | 2.9 | 0 - 6 | EXTERNAL | | | %, | | | LAB | | | External | | | | | + + + + + + | Basophils, | 1.1 | 0 - 2 | EXTERNAL | | | Absolute | | | LAB | | + + + + + + | RBC, | 4.50 | 4.3 - 5.7 | EXTERNAL | | | External | | | LAB | | + + + + + + | MCV, | 94 | 81 - 99 | EXTERNAL | | | External | | | LAB | | + + + + + + | RDW, | 15.3 (A) | 10.5 - 15 | EXTERNAL | | | External | | | LAB | | + + + + + + + + | Resulting Agency Comment | + + | [facility] | + + + +---------+ + + | Performing | Address | City/State/Zipcode | Phone Number | | Organization | | | | + +---------+ + + | EXTERNAL LAB | | | | + +---------+ + + External Lab: TSH (06/28/2015) + +-------+ + + + | Component | Value | Ref Range | Performed | Pathologist | | | | | At | Signature | + +-------+ + + + | TSH, | 1.56 | 0.27 - 4.2 | EXTERNAL | | | External | | | LAB | | + +-------+ + + + + + | Specimen | + + | Blood specimen | | (specimen) | + + + + | Resulting Agency Comment | + + | [facility] | + + + +---------+ + + | Performing | Address | City/State/Zipcode | Phone Number | | Organization | | | | + +---------+ + + | EXTERNAL LAB | | | | + +---------+ + + External Lab: B Type Naturetic Peptide (06/28/2015) + +-------+ + + + | Component | Value | Ref Range | Performed | Pathologist | | | | | At | Signature | + +-------+ + + + | B-Type | 89 | 0 - 100 | EXTERNAL | | | Naturetic | | | LAB | | | Peptide, | | | | | | External | | | | | + +-------+ + + + + + | Specimen | + + | Blood specimen | | (specimen) | + + + + | Resulting Agency Comment | + + | [facility] | + + + +---------+ + + | Performing | Address | City/State/Zipcode | Phone Number | | Organization | | | | + +---------+ + + | EXTERNAL LAB | | | | + +---------+ + + External Lab: Triglycerides (06/28/2015) + +-------+ + + + | Component | Value | Ref Range | Performed | Pathologist | | | | | At | Signature | + +-------+ + + + | Triglycerid | 102 | 30 - 150 | EXTERNAL | | | es, | | | LAB | | | External | | | | | + +-------+ + + + + + | Specimen | + + | Blood specimen | | (specimen) | + + + + | Resulting Agency Comment | + + | [facility] | + + + +---------+ + + | Performing | Address | City/State/Zipcode | Phone Number | | Organization | | | | + +---------+ + + | EXTERNAL LAB | | | | + +---------+ + + External Lab: Cholesterol, HDL (06/28/2015) + + + + + + | Component | Value | Ref Range | Performed | Pathologist | | | | | At | Signature | + + + + + + | HDL | 39.8 (A) | 40 mg/dl | EXTERNAL | | | Cholesterol | | | LAB | | | , External | | | | | + + + + + + + + | Specimen | + + | Blood specimen | | (specimen) | + + + + | Resulting Agency Comment | + + | [facility] | + + + +---------+ + + | Performing | Address | City/State/Zipcode | Phone Number | | Organization | | | | + +---------+ + + | EXTERNAL LAB | | | | + +---------+ + + External Lab: Cholesterol, Total (06/28/2015) + +---------+ + + + | Component | Value | Ref Range | Performed | Pathologist | | | | | At | Signature | + +---------+ + + + | Cholesterol | 147 (A) | 200 mg/dl | EXTERNAL | | | , Total, | | | LAB | | | External | | | | | + +---------+ + + + + + | Specimen | + + | Blood specimen | | (specimen) | + + + + | Resulting Agency Comment | + + | [facility] | + + + +---------+ + + | Performing | Address | City/State/Zipcode | Phone Number | | Organization | | | | + +---------+ + + | EXTERNAL LAB | | | | + +---------+ + + External Lab: Cholesterol, LDL Direct (06/28/2015) + +--------+ + + + | Component | Value | Ref Range | Performed | Pathologist | | | | | At | Signature | + +--------+ + + + | LDL | 87 (A) | 100 | EXTERNAL | | | Cholesterol | | | LAB | | | , Direct, | | | | | | External | | | | | + +--------+ + + + + + | Specimen | + + | Blood specimen | | (specimen) | + + + + | Resulting Agency Comment | + + | [facility] | + + + +---------+ + + | Performing | Address | City/State/Zipcode | Phone Number | | Organization | | | | + +---------+ + + | EXTERNAL LAB | | | | + +---------+ + + External Lab: Microalbumin/Creatinine Ratio, Urine (06/28/2015) + +-------+ + + + | Component | Value | Ref Range | Performed | Pathologist | | | | | At | Signature | + +-------+ + + + | Microalbumi | 20.2 | 6 - 28.6 | EXTERNAL | | | n/Creatinin | | | LAB | | | e Ratio, | | | | | | External | | | | | + +-------+ + + + + + | Specimen | + + | Blood specimen | | (specimen) | + + + + | Resulting Agency Comment | + + | [facility] | + + + +---------+ + + | Performing | Address | City/State/Zipcode | Phone Number | | Organization | | | | + +---------+ + + | EXTERNAL LAB | | | | + +---------+ + + External Lab: eGFR (06/28/2015) + +-------+ + + + | Component | Value | Ref Range | Performed | Pathologist | | | | | At | Signature | + +-------+ + + + | eGFR, | 65 | | EXTERNAL | | | External | | | LAB | | + +-------+ + + + + + | Specimen | + + | Blood specimen | | (specimen) | + + + + | Resulting Agency Comment | + + | [facility] | + + + +---------+ + + | Performing | Address | City/State/Zipcode | Phone Number | | Organization | | | | + +---------+ + + | EXTERNAL LAB | | | | + +---------+ + + External Lab: Creatinine (06/28/2015) + +-------+ + + + | Component | Value | Ref Range | Performed | Pathologist | | | | | At | Signature | + +-------+ + + + | Creatinine, | 1.09 | 0.7 - 1.11 | EXTERNAL | | | External | | | LAB | | + +-------+ + + + + + | Specimen | + + | Blood specimen | | (specimen) | + + + + | Resulting Agency Comment | + + | [facility] | + + + +---------+ + + | Performing | Address | City/State/Zipcode | Phone Number | | Organization | | | | + +---------+ + + | EXTERNAL LAB | | | | + +---------+ + + documented in this encounter Visit Diagnoses Not on filedocumented in this encounter"
--- OUTSIDE RECORDS SUMMARY | ~2020-03-10 | XMS | Encounter Summary ---
Demographics + + + | Address | [address] | | | [place] [address] | + + + | Home Phone | | + + + | Preferred Language | Unknown | + + + | Marital Status | | + + + | Adventism Affiliation | 1041 | + + + | Race | Unknown | + + + | Ethnic Group | Unknown | + + + Author + + + | Author | [facility] | | | and [place] | + + + | Organization | [facility] | | [...] [place] | | | | | [address] | | + + + + + | Scot Damico | ECON | [address] | | | | | [place] [address] | | + + + + + Care Team Providers + +------+ + | Care Airline Stewardess Name | Role | Phone | + +------+ + | Ralph Chatman MD | PCP | | + +------+ + Encounter Details +--------+ + + + + | Date | Type | Department | Care Team | Description | +--------+ + + + + | 03/21/ | Orders Only | [facility] | [facility] | | | 2004 | | [facility] | MD Neha [address] | | | | | LAB[address]AT[address] | [place] | | | | | [address] [place], [place] | [id number] | | | | | [address] | | | | | | [phone] | | | +--------+ + + + [...] D | | | | | | [place] [address] | | | | | | [phone] | | | | | | | | +--------+---------+ + + + documented as of this encounter Procedures + +--------+ + + + | Procedure Name | Priori | Date/Time | Associated Diagnosis | Comments | | | ty | | | | + +--------+ + + + | HEMATOPATHOLOGY EVAL | Routin | 03/21/2005 | | Results for this | | [facility] | e | 4:00 PM | | procedure are in the | | | | PDT | | results section. | + +--------+ + + + documented in this encounter Results Hematopathology Eval (03/21/2005 4:00 PM PDT) + + | Specimen | + + | | + + + + + | Narrative | Performed At | + + + | HEMATOPATHOLOGY REPORT | [facility] [place] | | Date Taken: 03/21/2005 Date Received: | | | 03/21/2005 Completed: 03/23/2005 Physician: MORENA MCKEE | | | DIAGNOSIS: Normal bone marrow study for age. 1 Mark Ashraf, | | | MD Vincent PRIOR REPORTS: ASPIRATE DIFFERENTIAL AND DESCRIPTION: | | | Study Site: Ili[place] Crest Cells Counted: 500 | | | M:E Ratio: - Normal % Total | | | % Normal % Total % Blasts: | | | - Myeloblasts: 0.9 | | | [0.2-1.5]: 0.2 Promyelocytes: 3.3 [2.0-4.5]: 4.4 | | | Myelocytes: 12.5 [8-16]: 13.4 Metamyelocytes: | | | 16. [9.5-24]: 18.4 Bands: 12.5 | | | [8-16]: 19.0 PMN's: 7.4 [6-12]: 14.0 | | | Eosinophils: 0.5 [0-1.3] - Immature Eos: | | | 2.9 [0.4-5.9]: 1.4 Basophils/Mast Cells: 1.0 [0-2.5]: - | | | Monocytes: 0.3 [0-0.8]: - Histiocytes: | | | 0.3 [0-9.9]: - Lymphocytes: 16.2 | | | [11-23]: 7.8 Immature Lymphs: - | | | Reactive Lymphs: - Plasma Cells: | | | 1.3 [0.4-3.9]: - Megakaryocytes: | | | 0.1 [0-0.4]: - Pronormoblasts: 0.6 [0.2-1.3]: | | | - Basophilic Normoblasts: 1.4 [0.5-2.4]: 2.2 | | | Polychromic Normoblasts: 21.6[18-30]: 18.2 Orthochromic | | | Normoblasts: 2.0 [0.4-4.5]: - Mitotic Cells: | | | - Other: | | | - The specimen is a bone marrow aspirate. Spicules are | | | present. No non-hematopoietic tumor cells are identified. | | | Megakaryocytes are present and appear normal. The myeloid cells | | | demonstrate maturation to mature polys. No increased or abnormal | | | lymphocytes or plasma cells are seen. The erythroid series | | | demonstrates normal maturation. Review of the iron stain | | | demonstrates iron to be present within the R:E system. Sideroblasts | | | are present. No ringed sideroblasts are seen. The accompanying | | | peripheral smear demonstrates no abnormalities. BIOPSY/CLOT | | | DESCRIPTION: The bone marrow biopsy measures approximately 20 mm in | | | length. Trabecular bone is present and appears normal. No | | | non-hematopoietic tumor cells or granulomata are seen. Overall | | | cellularity is approximately 30%. Megakaryocytes are present and | | | appear normal in number and morphology. The myeloid cells demonstrate | | | maturation to mature polys. No lymphoid or plasma cell aggregates | | | are seen. Normal erythroid islands are present. The | | | accompanying clot section confirms the findings as described in the | | | biopsy. PERIPHERAL BLOOD DIFFERENTIAL: Specimen: Blood | | | WBC [X10 9/L]: 5.8 RBC [X10 12/L]: | | | 4.30 HgB [gm/dl]: 13.3 Hct [1%]: | | | 39.1 MCV [fl]: 91.0 MCH | | | [pg]: 30.9 MCHC [gm/dl]: | | | 33.9 RDW [%]: 13.7 Plt [X10 9/L]: | | | 296 MPV [fl]: - Blasts: | | | - Promyelos: - | | | Myelocytes: - Metamyelocytes 16. [9.5-24]: - Bands | | | [%]: 9 Segs [%]: 59 EOS [%]: | | | 5 BASO [%]: - Lymphs, Normal [%]: | | | 23 Lymphs, Variant [%]: - Others [%]: | | | - Monos [%]: 4 LGL: - | | | RBC Morphology: - WBC Morphology: - [facility] [address] | | | [place] [address] or | | | Testing performed at: [facility] | | | Laboratory Alberto Najera M.D., Director [address] | | | [address] [place] [address] | | + + + + + + + + | Performing | Address | City/State/Zipcode | Phone Number | | Organization | | | | + + + + + | [facility] | [address] | [place] [address] | | | [facility] | | | | | LABORATORY | | | | + + + + + | [facility] | | | | + + + + + documented in this encounter Visit Diagnoses Not on filedocumented in this encounter"
--- OUTSIDE RECORDS SUMMARY | ~2020-03-10 | XMS | Encounter Summary ---
Demographics + + + | Address | [address] | | | [place] [address] | + + + | Home Phone | | + + + | Preferred Language | Unknown | + + + | Marital Status | | + + + | Protestant Affiliation | 1041 | + + + | Race | Unknown | + + + | Ethnic Group | Unknown | + + + Author + + + | Author | [facility] | | | and [place] | + + + | Organization | [facility] | | | [...] [place] | | | | | [address] | | + + + + + | Scot Damico | ECON | [address] | | | | | [place] [address] | | + + + + + Care Team Providers + +------+ + | Care Feather Stitcher Name | Role | Phone | + [...] + + | 10/15/ | Office | [facility] | [place], | COPD (chronic | | 2015 | Visit | PULMONARY [address] | Irina Sofia MD | obstructive | | | | [place], | | pulmonary disease) | | | | [place] [address] | | (HCC) (Primary Dx); | | | | [phone] | | Pulmonary nodules; | | | [...] sleep study, which he had done at [facility]. He was called with the results, and [...] 3 COPD (chronic obstructive pulmonary disease) (HCC) Past Surgical History Past Surgical History Procedure Date Tonsillectomy and adenoidectomy Laminectomy 2004 epidural abscess Lumbar fusion 2006 Aortic valve replacement/repair 07/08/2013 27mm Metronic Gonzalez II bioprosthesis, Dr. 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 PAP titration was recommended. 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 documented in [...] | | | [place] [address] | | | | | | [phone] | | | | | | | [...]
--- OUTSIDE RECORDS SUMMARY | ~2020-03-10 | XMS | Encounter Summary ---
Demographics + + + | Address | [address] | | | [place] [address] | + + + | Home Phone [...] + + | Author | [facility] | | | and [place] | + + + | Organization | [facility] | | [...] [place] | | | | | [address] | | + + + + + | Scot Damico | ECON | [address] | | | | | [place] [address] | | + + + + + Care Team Providers + +------+ + | Care Grants Officer Name | Role | Phone | + +------+ + | Ralph Chatman MD | PCP | | + +------+ + Encounter Details +--------+ + + + + | Date | Type | Department | Care Team | Description | +--------+ + + + + | 08/26/ | Emergency | [facility] | Olaf Ballesteros, | Visit for wound | | 2016 | | [facility] | MD [facility]a [facility] | check | | | | [facility] [place] [address] | | | | | [address] | | | | | | [place], [place] | | | | | | [address] | | | | | | [phone] | | | +--------+ + + + [...] D | | | | | | [place] [address] | | | | | | [phone] | | | | | | | | +--------+---------+ + + + documented as of this encounter Visit Diagnoses + + | Diagnosis | + + | Visit for wound check Encounter for other specified aftercare | + + documented in this encounter"
--- OUTSIDE RECORDS SUMMARY | ~2020-03-10 | XMS | Encounter Summary ---
Demographics + + + | Address | [address] | | | [place] [address] | + + + | Home Phone | | + + + | Preferred Language | Unknown | + + + | Marital Status | | + + + | Mandaeism Affiliation | 1041 | + + + | Race | Unknown | + + + | Ethnic Group | Unknown | + + + Author + + + | Author | [facility] | | | and [place] | + + + | Organization | [facility] | | [...] [place] | | | | | [address] | | + + + + + | Scot Damico | ECON | [address] | | | | | [place] [address] | | + + + + + Care Team Providers + +------+ + | Care Pediatric Anesthesiologist Name | Role | Phone | + [...] | | | | | | [place] [address] | | | | | | [phone] | | | +--------+ + + + [...] | | | [place] [address] | | | | | | [phone] | | | | | | | | +--------+---------+ + + + documented as of this encounter Visit Diagnoses + + | Diagnosis | + + | Cough - Primary | + + documented in this encounter"
--- OUTSIDE RECORDS SUMMARY | ~2020-03-10 | XMS | Encounter Summary ---
Demographics + + + | Address | [address] | | | [place] [address] | + + + | Home Phone | | + + + | Preferred Language | Unknown | + + + | Marital Status | | + + + | Zoroastrian Affiliation | 1041 | + + + | Race | Unknown | + + + | Ethnic Group | Unknown | + + + Author + + + | Author | [facility] | | | and [place] | + + + | Organization | [facility] | | [...] [place] | | | | | [address] | | + + + + + | Scot Damico | ECON | [address] | | | | | [place] [address] | | + + + + + Care Team Providers + +------+ + | Care Boiler Fitter Name | Role | Phone | + +------+ + PCP | Unavailable | + +------+ + Encounter Details +--------+ + + + + | Date | Type | Department | Care Team | Description | +--------+ + + + + | 10/14/ | Hospital | [facility] | Zeferino Reeves, | | | 2008 | Encounter | FAMILY NUCLEAR | MD [address] | | | | | MEDICINE [address] | | | | | [address] | [place] [address] | | | | | [place], [place] | [phone] | | | | | [address] | | | | | | [phone] | | | +--------+ + + + [...] [place] | | | | | | [place] [address] | | | | | | [phone] | | | | | | | | +--------+---------+ + + + documented as of this encounter Visit Diagnoses Not on filedocumented in this encounter"
--- OUTSIDE RECORDS SUMMARY | ~2020-03-10 | XMS | Encounter Summary ---
Demographics + + + | Address | [address] | | | [place] [address] | + + + | Home Phone | | + + + | Preferred Language | Unknown | + + + | Marital Status | Single | + + + | Samaritan Affiliation | CAT | + + + | Race | White | + + + | Ethnic Group | Not or | + + + Author + + + | Author | [facility] | + + + | Organization | [facility] | + + + | Address | Unknown | + + + | Phone | Unavailable | + + + Support + + +---------+ + | Name | Relationship | Address | Phone | + + +---------+ + | Elizabeth Damico | ECON | Unknown | | + + +---------+ + Care Team Providers + +------+ + | Care Computer Networker Name | Role | Phone | + +------+ + PCP | Unavailable | + +------+ + Encounter Details +--------+ + + + + | Date | Type | Department | Care Team | Description | +--------+ + + + + | / | Results | Registration [address] | Dasia Escobar | | | 2007 | Only | [address] | [phone] | | | | | Rd Mailcode: [id number] | | | | | | [place], [place] | | | | | | [address] | | | | | | [phone] | | | +--------+ + + + [...] | | | | | MNT) | [address] CLINICAL | | | | | | [...] [facility] | [address] | [place] [address] | | | DERMATOPATHOLOGY | [address] | | | + + + + + documented in this encounter Visit Diagnoses Not on filedocumented in this encounter"
--- OUTSIDE RECORDS SUMMARY | ~2020-03-10 | XMS | Encounter Summary ---
Demographics + + + | Address | [address] | | | [place] [address] | + + + | Home Phone | | + + + | Preferred Language | Unknown | + + + | Marital Status | Single | + + + | Oriental Orthodox Affiliation | CAT | + + + | Race | White | + + + | Ethnic Group | Not or | + + + Author + + + | Author | [facility] | + + + | Organization | [facility] | + + + | Address | Unknown | + + + | Phone | Unavailable | + + + Support + + +---------+ + | Name | Relationship | Address | Phone | + + +---------+ + | Elizabeth Damico | ECON | Unknown | | + + +---------+ + Care Team Providers + +------+ + | Care Director Aeronautics Commission Name | Role | Phone | + +------+ + PCP | Unavailable | + +------+ + Encounter Details +--------+ + + + + | Date | Type | Department | Care Team | Description | +--------+ + + + + | 11/25/ | Results | Neurosurgery [address] | Maria C Vences MD | | | 2003 | Only | [facility] | [address] | | | | | [address] Mailcode:[id number] | [place], [place] | | | | | [place] | [address] | | | | | [place], [place] | [phone] | | | | | [address] | | | | | | [phone] | | | +--------+ + + + [...] | | + +---------+ + + | [facility] DEPARTMENT OF | | | | | [...] | | + +---------+ + + | [facility] DEPARTMENT OF | | | | | [...] | + + + + + | [facility] | [address] [facility] | [place] [address] | | | PATHOLOGY | [address] | | | + + + + + | [facility] | [facility] | [place] [address] | | | PATHOLOGY | [address] [...] | + + + + + | [facility] DEPARTMENT OF | [address] | [place] [address] | | | PATHOLOGY | [address] | | | + + + + + | [facility] DEPARTMENT OF | [address] | [place] [address] | | | PATHOLOGY | [address] [...] | + + + + + | [facility] | [address] [facility] | [place] [address] | | | PATHOLOGY | [address] | | | + + + + + | [facility] | [address] [place] [address] | [place] [address] | | | PATHOLOGY | [address] [...] DEPARTMENT OF | [address] | [place] [address] | | | PATHOLOGY | [address] | | | + + + + + | [facility] DEPARTMENT OF | [address] | [place], [place] [address] | | | PATHOLOGY | [address] [...] | + + + + + | [facility] | [facility] [address] | [place] [address] | | | PATHOLOGY | [address] | | | + + + + + | [facility] DEPARTMENT OF | [address] | [place] [address] | | | PATHOLOGY | [address] [...] | + + + + + | [facility] DEPARTMENT OF | [address] | [place] [address] | | | PATHOLOGY | [address] | | | + + + + + | [facility] DEPARTMENT OF | [address] | [place] [address] | | | PATHOLOGY | [address] [...] | + + + + + | [facility] DEPARTMENT OF | [facility] | [place] [address] | | | PATHOLOGY | [address] | | | + + + + + | [facility] DEPARTMENT OF | [facility] | [place] [address] | | | PATHOLOGY | [address] [...] | + + + + + | [facility] | [address] [facility] | [place] [address] | | | PATHOLOGY | [address] | | | + + + + + | [facility] | [address] [facility] | [place] [address] | | | PATHOLOGY | [address] [...] | | + +---------+ + + | [facility] DEPARTMENT OF | | | | | [...] | + + + + + | [facility] | [address] | [place] [address] | | | LAB-MICRO | | | [...] + + + | [facility] | [address] | [place] [address] | | | LAB-MICRO | | | [...] | + + + + + | [facility] DEPARTMENT OF | [address] [facility] | [place] [address] | | | PATHOLOGY | [address] | | | + + + + + | [facility] DEPARTMENT OF | [address] [facility] | [place] [address] | | | PATHOLOGY | [address] [...] | + + + + + | [facility] | [address] [facility] | [place] [address] | | | PATHOLOGY | [address] | | | + + + + + | [facility] | [address] [place] [address] | [place] [address] | | | PATHOLOGY | [address] [...] DEPARTMENT OF | [address] | [place] [address] | | | PATHOLOGY | [address] | | | + + + + + | [facility] | [address] | [place] [address] | | | PATHOLOGY | [address] | | | + + + + + documented in this encounter Visit Diagnoses Not on filedocumented in this encounter"
--- OUTSIDE RECORDS SUMMARY | ~2020-03-10 | XMS | Clinical Summary ---
Demographics + + + | Address | [address] | | | [place] [address] | + + + | Home Phone | | + + + | Preferred Language | Unknown | + + + | Marital Status | | + + + | Zoroastrianism Affiliation | 1041 | + + + | Race | Unknown | + + + | Ethnic Group | Unknown | + + + Author + + + | Author | [facility] | | | and [place] | + + + | Organization | [facility] | | | and [...] [place] | | | | | [address] | | + + + + + | Scot Mookie | ECON | [address] | | | | | [place] [address] | | + + + + + Care Team Providers + +------+ + | Care Derrick Follower Name | Role | Phone | + +------+ + | Milvia Snyder MD | PCP | | + +------+ + Allergies + [...] | | | + + + +---------+------+------+-------+ +---+ + | | Additional | | | InformationPatient | | | not taking. Reported | | | on 03/10/2020 1:59 | | | PM | +---+ + + + +---------+---+------+---+-------+ | doxycycline | Take 1 capsule by | 14 | 0 | 04/1 | | Activ | | (VIBRAMYCIN) 100 mg | mouth 2 times daily. | capsule | | 5/20 | | e | | capsule | | | | 16 | | | + + +---------+---+------+---+-------+ | | | | 0 | 05/1 | | Activ | | hydroCHLOROthiazide | | | | 0/20 | | e | | (MICROZIDE) 12.5 MG | | | | 19 | | | | capsule | | | | | | | + + +---------+---+------+---+-------+ | tamsulosin | | | 0 | 12/1 | | Activ | | (FLOMAX) 0.4 mg CAPS | | | | 04/25 | | e | | | | | | 19 | | | + + +---------+---+------+---+-------+ | finasteride | | | 0 | 02/1 | | Activ | | (PROSCAR) 5 mg | | | | / | | e | | tablet | | | | 20 | | | + + +---------+---+------+---+-------+ Active Problems + + + | Problem [...] | 4 | + + + + Encounters +--------+---------+ + + + | Date | Type | Specialty | Care Team | Description | +--------+---------+ + + + | 03/10/ | Office | Neurology | Dada Goodwin, | | | 2020 | Visit | | MD | | +--------+---------+ + + + from Last 3 Months Immunizations + + + + | Name | Administration Dates | Next Due | + + + [...] doctor | | | | | in [place] | + + +------+ + + [...] | | + + + + + Plan of Treatment +--------+---------+ + + + | Date | Type | Specialty | Care Team | Description | +--------+---------+ + + + | 05/02/ Office | Neurology | Dada Goodwin, | | | 2019 | Visit | | MD Gabriel [address] | | | | | | [address] | | | | | | [place] [address] | | | | | | [phone] | | | | | | | | +--------+---------+ + + + + + + + + | Health Maintenance | Due Date | Last Done | Comments | + + + + + | Vaccine: | | 11/21/1999 | | | Dtap/Tdap/Td (1 - | 6 | | | | Tdap) | | | | + + + + + | Adult Annual | | | | | Wellness Visit | 9 | | | + + + + + | Vaccine: | Completed | 07/07/2015, 10/07/2009 | | | Pneumococcal 65+ | | | | + + + + + | Vaccine: Influenza | Completed | 07/30/2019, 06/26/2018, | | | | | 11/27/2017, Additional history | | | | | exists | | + + + + + | Vaccine: Zoster | Completed | 12/01/2019, 08/15/2019, | | | | | 07/07/2012, Additional history | | | | | exists | | + + + + + Implants + +------+-------+ +--------+--------+--------+ | Implanted | Type | Area | Manufacture | Device | Shelf | Model | | | | | r | | Expira | / | | | | | | Identi | tion | Serial | | | | | | fier | Date | / Lot | + +------+-------+ +--------+--------+--------+ | Lead Capsurefix Novus [id number] - | Lead | N/A: | MED[employer]IC - | | | [id number] | | [id number]: Qty: 1 on | | Heart | MEDT | | | [id number] | | 01/19/2016 by [place]ghia, | | | | | | [id number] | | Jude Rodriguez MD at [facility] | | | | | | / | | [facility] | | | | | | | + +------+-------+ +--------+--------+--------+ + + | Description:RIGHT VENTRICULAR | | LEAD | + + + +------+-------+ +---+---+--------+ | Lead Capsurefix Novus [id number] - | Lead | N/A: | [employer] - | | | [id number] | | [id number]: Qty: 1 on | | Heart | MEDT | | | /[id number] | | 01/19/2016 by Nghia, | | | | | | [id number] | | Jude Rodriguez MD at [facility] | | | | | | / | | [facility] | | | | | | | + +------+-------+ +---+---+--------+ + + | Description:RIGHT ATRIAL LEAD | + + + +--------+--------+ +---+---+--------+ | Pacer Usama Darden Dev - | Pacema | Left: | [employer] - | | | [id number] | | [id number]: Qty: 1 on | ker | Chest | MEDT | | | / / | | 01/19/2016 by Nghia, | | | | | | | | Jude Rodriguez MD at [facility] | | | | | | | | [facility] | | | | | | | + +--------+--------+ +---+---+--------+ Results Not on filefrom Last 3 Months [...] +--------+ +---------+--------+ | MEDICARE | MEDICA | [id number] | 04/06/20 | [phone] | | Medica | | | RE | | 00-Pre | 5 | | re | | | PART A | | sent | | | | | | AND B | | | | | | + +--------+ +--------+ +---------+--------+ | MEDICARE | MEDICA | [id number] | 04/06/20 | [phone] | | Medica | | | RE | | 00-Pre | 5 | | re | | | PART A | | sent | | | | | | AND B | | | | | | + +--------+ +--------+ +---------+--------+ | INDIVIDUAL ASSURANCE | INDIVI | [id number] | 10/07/19 | | | Indemn | | COMPANY | DUAL | | 20-Pre | | | ity | | | ASSURA | | sent | | | | | | [place] | | | | | | | | MDCR | | | | | | | | SUPPL | | | | | | + +--------+ +--------+ +---------+--------+ | EQUITABLE INSURANCE | EQUITA | [id number] | 06/07/20 | [phone] | | Indemn [...] | 1935 | [phone] | [place], [place] | | | isa | | | 8 (Home) | [phone] | + +--------+ +--------+ + + | Iraida Damico | Person | Self | [birth year] | [address] | | Steve | al/Fam | | 1935 | [phone] | [place], [place] | | | isa | | | 8 (Home) | [address] | + +--------+ +--------+ + + | Iraida Damico | Person | Self | [birth year] | | [address] | | Steve | al/Fam | | 1935 | [phone] | [place] | | | isa | | | 8 (Home) | [address] | + +--------+ +--------+ + + Advance Directives + + + + + | Type | Date Recorded | Patient | Explanation | | | | Utilization Review Nurse | | + + + + + | Power of | | | | | Production Planner Scheduler | | | | + + + + + | Advance | 01/18/2016 9:10 | | | | Directive | AM | | | + + + + +
--- OUTSIDE RECORDS SUMMARY | ~2020-03-10 | XMS | Encounter Summary ---
Demographics + + + | Address | [address] | | | [place] [address] | + + + | Home Phone | | + + + | Preferred Language | Unknown | + + + | Marital Status | Single | + + + | Yarsani Affiliation | CAT | + + + | Race | White | + + + | Ethnic Group | Not or | + + + Author + + + | Author | [facility] | + + + | Organization | [facility] | + + + | Address | Unknown | + + + | Phone | Unavailable | + + + Support + + +---------+ + | Name | Relationship | Address | Phone | + + +---------+ + | Elizabeth Damico | ECON | Unknown | | + + +---------+ + Care Team Providers + +------+ + | Care Mobile Marketing Specialist Name | Role | Phone | [...] [id number] | | | | | | [place] [facility] | | | | | | and Healing, | | | | | | [facility] [address], [facility] | | | | | | [place], [place] | | | | | | [address] | | | | | | [phone] | | | +--------+ + + + [...] | | | | | | cassette. [id number] | | | | | | AB. [...] | | | | | | cassette. [id number] | | | | | | BGross performed at: | | | | | | [facility], | | | | | | [address] [facility], | | | | | | [place] | | | | | | [address]. | | | | | | MICROSCOPIC [...] [facility] | [address] | [place] [address] | | | DERMATOPATHOLOGY | [address] | | | + + + + + documented in this encounter Visit Diagnoses Not on filedocumented in this encounter"
--- OUTSIDE RECORDS SUMMARY | ~2020-03-10 | XMS | Encounter Summary ---
Demographics + + + | Address | [address] | | | [place] [address] | + + + | Home Phone | | + + + | Preferred Language | Unknown | + + + | Marital Status | Single | + + + | Jewish Affiliation | CAT | + + + | Race | White | + + + | Ethnic Group | Not or | + + + Author + + + | Author | [facility] | + + + | Organization | [facility] | + + + | Address | Unknown | + + + | Phone | Unavailable | + + + Support + + +---------+ + | Name | Relationship | Address | Phone | + + +---------+ + | Elizabeth Damico | ECON | Unknown | | + + +---------+ + Care Team Providers + +------+ + | Care Operations Superintendent Name | Role | Phone | + +------+ + PCP | Unavailable | + +------+ + Encounter Details +--------+ + + + + | Date | Type | Department | Care Team | Description | +--------+ + + + + | 12/11/ | Ancillary | [facility] Faculty | | | | 2007 | Registratio | Practice [address] | | | | | n | [facility] | | | | | | [place] [address] | | | | | | [phone] | | | +--------+ + + + [...]
--- OUTSIDE RECORDS SUMMARY | ~2020-03-10 | XMS | Encounter Summary ---
Demographics + + + | Address | [address] | | | [place] [address] | + + + | Home Phone | | + + + | Preferred Language | Unknown | + + + | Marital Status | | + + + | Zoroastrian Affiliation | 1041 | + + + | Race | Unknown | + + + | Ethnic Group | Unknown | + + + Author + + + | Author | [facility] | | | and [place] | + + + | Organization | [facility] | | [...] [place] | | | | | [address] | | + + + + + | Scot Damico | ECON | [address] | | | | | [place] [address] | | + + + + + Care Team Providers + +------+ + | Care Bus System Operator Name | Role | Phone | + +------+ + | Ralph Chatman MD | PCP | | + +------+ + Encounter Details +--------+ + + + + | Date | Type | Department | Care Team | Description | +--------+ + + + + | 06/25/ | Hospital | [facility] | [place], | Cough | | 2013 | Encounter | MED CTR PULMONARY | Irina Sofia MD | | | | | FUNCTION [address] | | | | | | [place], | | | | | | [place] [address] | | | | | | [phone] | | | +--------+ + + + [...] | | | [place] [address] | | | | | | [phone] | | | | | | | | +--------+---------+ + + + documented as of this encounter Visit Diagnoses + + | Diagnosis | + + | Cough | + + documented in this encounter"
--- OUTSIDE RECORDS SUMMARY | ~2020-03-10 | XMS | Encounter Summary ---
Demographics + + + | Address | [address] | | | [place] [address] | + + + | Home Phone | | + + + | Preferred Language | Unknown | + + + | Marital Status | | + + + | Anglican Affiliation | 1041 | + + + [...] [place] | | | | | [address] | | + + + + + | Scot Damico | ECON | [address] | | | | | [place] [address] | | + + + + + Care Team Providers + +------+ + | Care Mushroom Packer Name | Role | Phone | [...] + + | 08/11/ | Telephone | [facility] | [place], | Results (Overnight | | 2013 | | PULMONARY [address] | Irina Sofia MD | pulse oximetry | | | | [place], | | results) | | | | [place] [address] | | | | | | [phone] | | | +--------+ + + + [...] | | | [place] [address] | | | | | | [phone] | | | | | | | | +--------+---------+ + + + documented as of this encounter Visit Diagnoses Not on filedocumented in this encounter"
--- OUTSIDE RECORDS SUMMARY | ~2020-03-10 | XMS | Encounter Summary ---
Demographics + + + | Address | [address] | | | [place] [address] | + + + | Home Phone | | + + + | Preferred Language | Unknown | + + + | Marital Status | Single | + + + | Episcopal Affiliation | CAT | + + + | Race | White | + + + | Ethnic Group | Not or | + + + Author + + + | Author | [facility] | + + + | Organization | [facility] | + + + | Address | Unknown | + + + | Phone | Unavailable | + + + Support + + +---------+ + | Name | Relationship | Address | Phone | + + +---------+ + | Elizabeth Damico | ECON | Unknown | | + + +---------+ + Care Team Providers + +------+ + | Care Python Engineer Name | Role | Phone | [...] | | | | | [place], | | | | | | [place] [address] | | | +--------+ + + + [...] | + + | 11/26/2003 10:18 AM [facility] Anesthesia PostOp Report | | | | Patient: GERTRUDIS DAMICOSARBJIT [facility] Rec: [id number] Sex M Bdate: 1935 | | Date/Time Data | | Entered Into [facility] | | Anesth PostOp | | Surgery Date [id number] 11/26/03 10:18 | | Anesthesiologist NATHAN DIETRICH [...]
--- OUTSIDE RECORDS SUMMARY | ~2020-03-10 | XMS | Encounter Summary ---
Demographics + + + | Address | [address] | | | [place] [address] | + + + | Home Phone [...] [place] | | | | | [address] | | + + + + + | Scot Damico | ECON | [address] | | | | | [place] [address] | | + + + + + Care Team Providers + +------+ + | Care Sales Floor Associate Name | Role | Phone | + +------+ + | Ralph Chatman MD | PCP | | + +------+ + Encounter Details +--------+ + + + + | Date | Type | Department | Care Team | Description | +--------+ + + + + | 07/07/ | Hospital | [facility] | Danish Ceballos, | | | 2012 - | Encounter | [facility] | [address] | | | | | [facility] | [place] [address] | | | 09/22/ | | [address] | [phone] | | | 2012 | | [place], [place] | | | | | | [address] | | | | | | [phone] | | | +--------+ + + + [...] D | | | | | | [place] [address] | | | | | | [phone] | | | | | | | [...] + + + | Exam Performed Location: [facility] TWO-VIEW | MISCELANIOUS | | CHEST X-RAY [...] | | | significant change. S: SQ ([id number]) Signed by: CHRISTINE Bull | | | MD ANKIT | | + + + + + | Procedure Note | + + | Niles Recinos Conversion - 07/29/2013 1:06 PM PDT Exam Performed Location: [facility] | | at [facility] HeartTWO-VIEW CHEST X-RAYCLINICAL INFORMATION:Pre open heart | | surgeryCOMPARISON:12/21/2009PROCEDURE:PA upright and lateral views of the | | chestFINDINGS:The heart, mediastinum and pulmonary vasculature stable inappearance. No | | acute infiltrates are seen. There is a 7-8 mmnodular opacity projecting over the right | | lower lung, notsignificantly changed. No pleural effusion or pneumothorax | | isidentified.IMPRESSION:No acute findings. No significant change.S: SQ ([id number]) Signed | | by: CHRISTINE PHAM MD [...] | | | | | |S: SQ ([id number]) Signed by: CHRISTINE PHAM MD | + + + +---------+ + + | Performing | Address | City/State/Zipcode | Phone Number | | Organization | | | | + +---------+ + + | MISCELLANEOUS LAB | | | [phone] | + +---------+ + + | MISCELANIOUS LAB | | | [phone] | + +---------+ + + Urinalysis With [...] - 1.030 | [facility] | | | [place] | | | [facility] | | | [...] + | [facility] | [address] | [place] [address] | | | [facility] | | | | | LABORATORY | | | | + + + + + Dick VALLEJO (07/07/2013 10:53 AM PDT) + + [...] [facility] | [address] | [place] [address] | | | [facility] | | | | | [...] + | [facility] | [address] | [place] [address] | | | [facility] | | | | | [...] + + | [facility] | [address] | [place] [address] | | | [facility] | [...] + + + | Glucose | 81Comment: English | 65 - 99 mg/dL | [facility] | | | | Diabetes Association | [...] | | | | failure.For | | [place] | | | | Americans, multiply the [...] + | [facility] | [address] | [place] [address] | | | [facility] | | | | | [...] + + | [facility] | [address] | [place] [address] | | | [facility] | [...] + | [facility] | [address] | [place] [address] | | | [facility] | | | | | LABORATORY | | | | + + + + + CBC no Differential (07/07/2013 10:51 AM PDT) + +-------+ + + + | Component | Value | Ref Range | Performed | Pathologist | | | | | At | Signature | + +-------+ + + + | WBC | 4.4 | 3.8 - 11.0 K/uL | [facility] | | | | | [facility] | | | | | | [facility] | | | | | | [facility]ENTER | | | | | | LABORATORY | | + +-------+ + + + | RBC | 4.41 | 4.20 - 5.70 | [...] + | [facility] | [address] | [place] [address] | | | [facility] | | | | | LABORATORY | | | | + + + + + documented in this encounter Visit Diagnoses Not on filedocumented in this encounter"
--- OUTSIDE RECORDS SUMMARY | ~2020-03-10 | XMS | Encounter Summary ---
Demographics + + + | Address | [address] | | | [place] [address] | + + + | Home Phone | | + + + | Preferred Language | Unknown | + + + | Marital Status | | + + + | Taoist Affiliation | 1041 | + + + | Race | Unknown | + + + | Ethnic Group | Unknown | + + + Author + + + | Author | [facility] | | | and [place] | + + + | Organization | [facility] | | | and [...] [place] | | | | | [address] | | + + + + + | Scot Damico | ECON | [address] | | | | | [place] [address] | | + + + + + Care Team Providers + +------+ + | Care Junior Media Buyer Name | Role | Phone | + +------+ + | Milvia Snyder MD | PCP | | + +------+ + Reason for Visit + + + | Reason | Comments | + + + | New Patient | other symptoms and signs involving the musculoskeletal | + + + Evaluate & Treat [...] | | | | | involving | [place] | D | | | | | the | [place] [address] | [place] | | | | | musculoskele | Phone: | [phone] | | | | | [employer] system | [phone] | Phone: | | | | | | Fax: | [phone] | | | | | | [phone] | Fax: | | | | | | | [phone] | + +--------+ + + + + Encounter Details +--------+---------+ + + + | Date | Type | Department | Care Team | Description | +--------+---------+ + + + | 12/06/ | Office | [facility] | DanielDada toledo, | Weakness (Primary | | 2020 | Visit | NEUROLOGY [address] | Dx); Falls | | | | [address] | [address] | infrequently; | | | | [place] | [place] [address] | Neuropathy | | | | [address] | [phone] | | | | | [phone] | | | +--------+---------+ + + + [...] + + + | Blood Pressure | 126/70 | 12/07/2019 2:04 PM | standing | | | | PST | | + + + + + | Pulse | 83 | 12/07/2019 2:04 PM | | | | | PST [...] Weight | 79.4 kg (175 lb) | 12/07/2019 1:03 PM | | | | | PST | | + + + + + | Height | 172.7 cm (5' 8") | 12/07/2019 1:03 PM | | | | | PST | | + + + + + | Body Mass Index | 26.61 | 12/07/2019 1:03 PM | | | | | PST [...] documented as of this encounter Progress Notes Dada Goodwin MD - 12/07/2019 1:00 PM PSTFormatting of this note might be different fro m the original. Subjective: Patient ID: Iraida Damico is a 84 y.o. male. HPI Dear Milvia Snyder MD. Thank you for asking us to participate in your patient's care. As you know, Iraida Damico is a 84 y.o. right handed male who presents today for ev aluation of neurologic concern (imbalance and falls). New vitis. Previous neurologist: None. - Onset, context and course: 2018; none; [...] - Previous record/diagnosis and treatment: Head CT was done but not available to me. Current Outpatient Medications: albuterol 90 mcg/puff inhaler, Inhale 2 puffs into the lungs every 6 hours as needed f or Wheezing., Disp: , Rfl: amLODIPine (NORVASC) 5 mg tablet, Take 5 mg by mouth Daily., Disp: , Rfl: ascorbic acid (VITAMIN C) 500 mg tablet, Take 500 mg by mouth Daily., Disp: , Rfl: aspirin 325 mg tablet, Take 325 mg by mouth Daily., Disp: , Rfl: Ouicwrq-Htfjnutdyltsz-Pinnzorm (EXCEDRIN MIGRAINE PO), Take 1 tablet by mouth as neede d., Disp: , Rfl: Cholecalciferol (VITAMIN D3) 2000 UNITS CAPS, Take 2,000 Units by mouth Daily., Disp: , Rfl: doxycycline (VIBRAMYCIN) 100 mg capsule, Take 1 capsule by mouth 2 times daily., Disp: 14 capsule, Rfl: 0 finasteride (PROSCAR) 5 mg tablet, , Disp: , Rfl: hydroCHLOROthiazide (MICROZIDE) 12.5 MG capsule, , Disp: , Rfl: HYDROcodone-acetaminophen (NORCO) 5-325 mg per tablet, Take 1 tablet by mouth every 6 hours as needed for Pain., Disp: 20 tablet, Rfl: 0 loperamide ([employer] ANTI-DIARRHEAL) 2 MG tablet, Take 2 mg by mouth Daily., Disp: , Rfl: omeprazole (PRILOSEC) 20 mg capsule, Take 20 mg by mouth Daily as needed., Disp: , Rfl : pseudoePHEDrine (SUDAFED) 30 mg tablet, Take 30 mg by mouth every 4 hours as needed fo r Congestion., Disp: , Rfl: Respiratory Therapy Supplies MISC, Res Med S9 auto CPAP 9 cm H2O. Heater and Humidifie r. All necessary supplies. AHI 7.6, 60.5 in supine. Diagnosis Code(s)327.23. Length of Need 99 months. Please send order to [facility] Disp: 1 each, Rfl: 99 tamsulosin (FLOMAX) 0.4 mg CAPS, , Disp: , Rfl: Past Medical History: Diagnosis Date Acid reflux disease Aortic valve regurgitation 2005 s/p AVR 07/2013 Arthritis neck Cataract bilateral COPD (chronic obstructive pulmonary disease) (HCC) COPD (chronic obstructive pulmonary disease) (HCC) Degenerative joint disease rt knee-replacement done Epidural abscess 2003 related to septic in low back region Hypertension Melanoma (HCC) 2009, 2010 x 3; 2 [...] pancreatic Hypertension Mother Stroke Maternal Grandfather Other (see comment) Sister bronchiectasis, followed by a lung doctor in [place] Social History Socioeconomic History Marital status: Spouse [...] file Gets together: Not on file Attends jainism service: Not on file Active member of [...] Not on file Social History Narrative Lives: [place] With: his Grew up: [facility] Has previously lived in: [place], [place], born in [place] Exposure to toxic chemicals: possibly as a [...] updated as jan jarrett. Review of Systems The patient reports hearing impairment, gait problem, dizziness, headaches, weakness, and c onfusion with decreased concentration. All other system were reviewed and are negative. Objective: BP 130/73 | Pulse 86 | Ht 1.727 m (5' 8") | Wt 79.4 kg (175 lb) | BMI 26.61 kg/m Physical Exam Vitals: Vitals: 12/07/19 1303 BP: 130/73 Pulse: 86 General: Well developed, in no acute distress Neck: Supple, unable to appreciate bruits. Heart: S1, S2. Peripheral vascular system: Swelling by observation with palpable pulse in upper extremitie s. Detailed Neurologic Exam Speech: Is fluent with normal naming and repetition. Cognition: The patient is oriented to person, place, and time; recent and remote memory is intact with normal attention and concentration. Cranial Nerves: At this time, the pupils are equal, round, and reactive to light. Visual fi elds are full to finger confrontation. Extraocular movements are intact. Trigeminal sensatio n is intact. The face is symmetric. Hearing is symmetric bilaterally to fingers rubbing. The palate elevates in the midline. Voice is normal. Shoulder shrug is normal. The tongue has n ormal motion without fasciculations. Coordination: Normal finger to nose (some limitation left arm pain) . Gait: Slow and wide based. Observation: No asymmetry, or involuntary movements noted. Tone: Normal muscle tone. Posture: Not erect. Strength: Strength is 5-/5 in the upper and lower limbs (limitation left arm pain). Vibratory Sensation: Impaired in feet. Light Touch / pin prick: Impaired to above the ankles. DTR's: Deep tendon reflexes in the upper extremities and knees are normal bilaterally and a bsent in ankles. Assessment: Patient is with: . Reason for visit: Evaluation and management of new problem, with additional work-up planned . Impression: 1- Gait abnormality with infrequent falls, possibly due to #2, and #3 2- Neuropathy? 3- Orthostatic lightheadedness, medication related. No clear parkinsonism features. Vit D and HGBA1c are not covered by his insurance, will defer to PCP if can order them. We checked orthostatic vitals: Supine: 122/74 81 Sittin/62 81 Standing X 2 minutes: 126/70 83 Plan: 1- The differential diagnosis and the necessary work up were discussed with the patient in detail. 2- I will request the previous record (head CT) to be sent to my office for review. I revie wed the available medical record and summarized it in my HPI. 3- We discussed the safety issues in detail including safe environment. No recent falls. Fo llowing with PT. 4- For #1, and #2, PT, wait and watch, labs, if previous and current work up is negative, w e may consider ACR abs and C/L trial. 5- For #3, reasonable hydration, elastic stockings and medications adjustment (he will foll ow with his urologist). 6- I covered with the patient all side effects of the regimen and the interaction with othe r medications (few of his medications can cause orthostatic symptoms). Patient understands a nd agrees to proceed with the regimen / plan. 7- Risk factors modification per PCP. The patient was instructed to follow up with PCP in r egards to the non neurological symptoms listed on the review of symptoms. 8- RTC in 2-3 months or prn. However, patient was instructed to call with any concern, if s ymptoms are worsening, not improving or if any side effects related to regimen. documented in this en counter Plan of Treatment +--------+---------+ + + + | Date | Type | Specialty | Care Team | Description | +--------+---------+ + + + | 05/02/ | Office | Neurology | Dada Goodwin, | | 2019 | Visit | | MD Gabriel SELLERS | | | | | | [facility] | | | | | | [place] [address] | | | | | | [phone] | | | | | | | | +--------+---------+ + + + + +------+--------+ + + | Name | Type | Priori | Associated Diagnoses | Order Schedule | | | | ty | | | + +------+--------+ + + | CBC with | Lab | Routin | Weakness Falls | 1 Occurrences | | Differential | | e | infrequently | starting 12/07/2019 | | | | | Neuropathy | until 12/06/2020 | + +------+--------+ + + | Comprehensive | Lab | Routin | Weakness Falls | 1 Occurrences | | Metabolic Panel | | e | infrequently | starting 12/07/2019 | | | | | Neuropathy | until 12/06/2020 | + +------+--------+ + + | CK Total | Lab | Routin | Weakness Falls | 1 Occurrences | | | | e | infrequently | starting 12/07/2019 | | | | | Neuropathy | until 12/06/2020 | + +------+--------+ + + | TSH | Lab | Routin | Weakness Falls | 1 Occurrences | | | | e | infrequently | starting 12/07/2019 | | | | | Neuropathy | until 12/06/2020 | + +------+--------+ + + | Vitamin B-12 and | Lab | Routin | Weakness Falls | 1 Occurrences | | Folate | | e | infrequently | starting 12/07/2019 | | | | | Neuropathy | until 12/06/2020 | + +------+--------+ + + documented as of this encounter Procedures + +--------+ + + + | Procedure Name | Priori | Date/Time | Associated Diagnosis | Comments | | | ty | | | | + +--------+ + + + | IMAGING REPORT - | | 08/05/2019 | | Results for this | | EXTERNAL SCAN | | 12:00 AM | | procedure are in the | | | | PDT | | results section. | + +--------+ + + + documented in this encounter Results IMAGING REPORT - EXTERNAL SCAN (08/05/2019 12:00 AM PDT) + + + | Narrative | Performed At | + + + | Ordered by an | | | unspecified provider. | | + + + documented in this encounter Visit Diagnoses + + | Diagnosis | + + | Weakness - Primary Other malaise and fatigue | + + | Falls infrequently Personal history of fall | + + | Neuropathy Mononeuritis of unspecified site | + + documented in this encounter
--- OUTSIDE RECORDS SUMMARY | ~2020-03-10 | XMS | Encounter Summary ---
Demographics + + + | Address | [address] | | | [place] [address] | + + + | Home Phone | | + + + | Preferred Language | Unknown | + + + | Marital Status | | + + + | Judaism Affiliation | 1041 | + + + [...] [place] | | | | | [address] | | + + + + + | Scot Damico | ECON | [address] | | | | | [place] [address] | | + + + + + Care Team Providers + +------+ + | Care Dice Dealer Name | Role | Phone | + +------+ + PCP | Unavailable | + +------+ + Encounter Details +--------+ + + + + | Date | Type | Department | Care Team | Description | +--------+ + + + + | 08/08/ | Hospital | [facility] | Unknown, | | | 2005 | Encounter | MED CTR XRAY [address] | MD Pratima . | | | | | [place] | | | | | | [place] [address] | (Fax) | | | | | [phone] | | | +--------+ + + + [...] | | | [place] [address] | | | | | | [phone] | | | | | | | | +--------+---------+ + + + documented as of this encounter Visit Diagnoses Not on filedocumented in this encounter"
--- OUTSIDE RECORDS SUMMARY | ~2020-03-10 | XMS | Encounter Summary ---
Demographics + + + | Address | [address] | | | [place] [address] | + + + | Home Phone [...] Team Providers + +------+ + | Care Hospitality Intern Name | Role | Phone | [...] as of this encounter Progress Notes Interface, Carpentry Supervisor In - 05/06/2005 6:14 AM PDTClinic Date: [...] Maria C Vences M.D. LEO / WALDO [id number] / [id number] / [id number] / cc: Arturo Chatman M.D. [facility] [address] [place] [id number] signed by Interface, Carpentry Supervisor In at 05/06/2005 6:1 4 AM PDTdocumented in this encounter Plan of Treatment Not on filedocumented as of this encounter Visit Diagnoses Not on filedocumented in this encounter"
--- OUTSIDE RECORDS SUMMARY | ~2020-03-10 | XMS | Encounter Summary ---
Demographics + + + | Address | [address] | | | [place] [address] | + + + | Home Phone [...] + + + | Author | [facility] | | | and [place] | + + + | Organization | [facility] | | | [...] [place] | | | | | [address] | | + + + + + | Scot Damico | ECON | [address] | | | | | [place] [address] | | + + + + + Care Team Providers + +------+ + | Care Oven Laborer Name | Role | Phone | + +------+ + PCP | Unavailable | + +------+ + Encounter Details +--------+ + + + + | Date | Type | Department | Care Team | Description | +--------+ + + + + | [facility]/21/ | [facility] | Zeferino Reeves, | | | 2009 - | Encounter | SURGICAL ORTHO [address] | [address] | | | | | [facility] | [address] | | | 12/23/ | | [place] | [place] [address] | | | 2009 | | [address] | [phone] | | | | | [phone] | | | +--------+ + + + [...] | | | [place] [address] | | | | | | [phone] | | | | | | | [...] + + + | Exam Performed Location: [facility] | MISCELANIOUS | | LUMBAR SPINE [...] 07/31/2013 7:52 PM PDT Exam [facility]formed [facility]:74-year-old with lumbar | | [...] + | MISCELLANEOUS LAB | | | [phone] | + +---------+ + + | MISCELANIOUS LAB | | | [phone] | + +---------+ + + Historical Imaging Result (12/21/2009 11:28 AM PDT) + + | Specimen | + + | | + + + + + | Narrative | Performed At | + + + | Exam Performed Location: [facility] | MISCELANIOUS | | PA AND [...] 07/31/2013 7:40 PM PDT [facility]am [facility]-RAYCLINICAL INFORMATION:Preoperative for [...] + | MISCELLANEOUS LAB | | | [phone] | + +---------+ + + | MISCELANIOUS LAB | | | [phone] | + +---------+ + + documented in this encounter Visit Diagnoses Not on filedocumented in this encounter"
--- OUTSIDE RECORDS SUMMARY | ~2020-03-10 | XMS | Encounter Summary ---
Demographics + + + | Address | [address] | | | [place] [address] | + + + | Home Phone | | + + + | Preferred Language | Unknown | + + + | Marital Status | Single | + + + | Hinduism Affiliation | CAT | + + + [...] Team Providers + +------+ + | Care Food Checkers And Cashiers Supervisor Name | Role | Phone | [...] | + +---------+ + + | [facility] DEPARTMENT OF | | | | | RADIOLOGY | | | | + +---------+ + + documented in this encounter Visit Diagnoses Not on filedocumented in this encounter"
--- OUTSIDE RECORDS SUMMARY | ~2020-03-10 | XMS | Encounter Summary ---
Demographics + + + | Address | [address] | | | [place] [address] | + + + | Home Phone | | + + + | Preferred Language | Unknown | + + + | Marital Status | | + + + | Rastafarian Affiliation | 1041 | + + + | Race | Unknown | + + + | Ethnic Group | Unknown | + + + Author + + + | Author | [facility] | | | and [place] | + + + | Organization | [facility] | | | [...] [place] | | | | | [address] | | + + + + + | Scot Damico | ECON | [address] | | | | | [place] [address] | | + + + + + Care Team Providers + +------+ + | Care Smelting Engineer Name | Role | Phone | + +------+ + PCP | Unavailable | + +------+ + Encounter Details +--------+ + + + + | Date | Type | Department | Care Team | Description | +--------+ + + + + | 11/27/ | [facility] | Boris Barboza | | | 2005 - | Encounter | HEART MED CTR | MD Tomasa NEED ADDRESS | | | | | SURGICAL [address] | | | | 11/30/ | | [place] | | | | 2005 | | [address] | | | | | | [phone] | | | +--------+ + + + [...] | | | [place] [address] | | | | | | [phone] | | | | | | | | +--------+---------+ + + + documented as of this encounter Visit Diagnoses Not on filedocumented in this encounter"
--- OUTSIDE RECORDS SUMMARY | ~2020-03-10 | XMS | Clinical Summary ---
Demographics + + + | Address | [address] | | | [place] [address] | + + + | Home Phone | | + + + | Preferred Language | Unknown | + + + | Marital Status | Single | + + + | Christian Affiliation | CAT | + + + [...] Team Providers + +------+ + | Care Tool Distributor Name | Role | Phone | + +------+ + PCP | Unavailable | + +------+ + Source Comments [facility] is fully live on both [facility] and [facility] Allergies No Known Allergies Medications Not on file Active Problems Not on file Encounters +--------+ + + + + | Date | Type | Specialty | Care Team | Description | +--------+ + + + + | 01/04/ | Documentati | Non [facility] | Unknown | | | 2020 | on | Department | | | +--------+ + + + + from Last 3 Months Social History + +-------+ +--------+------+ | Tobacco [...] | + + Last Filed Vital Signs Not on file Plan of Treatment + + + + + | Health Maintenance | Due Date | Last Done | Comments | + + + + + | Pneumococcal | | | | | vaccination (1 of 2 | 0 | | | | - PCV13) | | | | + + + + + | Influenza (Flu) | | | | | vaccination (#1) | 9 | | | + + [...] | B | | sent | | [place], [place] | | | | | | | | [address] | | + +--------+ +--------+ + +--------+ [...] +--------+ +--------+ + + | Iraida Damico [place] | Person | Self | [birth year] | [address] | | | al/Fam | | 1935 | [phone] | [place] [address] | | | isa | | | [address] (Home) | | + +--------+ +--------+ + +"
--- OUTSIDE RECORDS SUMMARY | ~2020-03-10 | XMS | Encounter Summary ---
Demographics + + + | Address | [address] | | | [place] [address] | + + + | Home Phone | | + + + | Preferred Language | Unknown | + + + | Marital Status | | + + + | Mandaen Affiliation | 1041 | + + + | Race | Unknown | + + + | Ethnic Group | Unknown | + + + Author + + + | Author | [facility] | | | and [place] | + + + | Organization | [facility] | | | and [...] [place] | | | | | [address] | | + + + + + | Scot Damico | ECON | [address] | | | | | [place] [address] | | + + + + + Care Team Providers + +------+ + | Care Sueding Machine Operator Name | Role | Phone | + +------+ + | Ralph Chatman MD | PCP | | + +------+ + Encounter Details +--------+ + + + + | Date | Type | Department | Care Team | Description | +--------+ + + + + | 07/07/ | Hospital | [facility] | Danish Ceballos, | | | 2012 - | Encounter | [facility] | [address] | | | | | [facility] | [place] [address] | | | 09/22/ | | [address] | [phone] | | | 2012 | | [place], [place] | | | | | | [address] | | | | | | [phone] | | | +--------+ + + + [...] D | | | | | | [place] [address] | | | | | | [phone] | | | | | | | [...] + + + | Exam Performed Location: [facility] TWO-VIEW | MISCELANIOUS | | CHEST X-RAY [...] | | | significant change. S: SQ ([id number]) Signed by: CHRISTINE Bull | | | MD ANKIT | | + + + + + | Procedure Note | + + | Niles Recinos Conversion - 07/29/2013 1:06 PM PDT Exam Performed Location: [facility] | | at [facility] HeartTWO-VIEW CHEST X-RAYCLINICAL INFORMATION:Pre open heart | | surgeryCOMPARISON:12/21/2009PROCEDURE:PA upright and lateral views of the | | chestFINDINGS:The heart, mediastinum and pulmonary vasculature stable inappearance. No | | acute infiltrates are seen. There is a 7-8 mmnodular opacity projecting over the right | | lower lung, notsignificantly changed. No pleural effusion or pneumothorax | | isidentified.IMPRESSION:No acute findings. No significant change.S: SQ ([id number]) Signed | | by: CHRISTINE PHAM MD [...] | | | | | |S: SQ ([id number]) Signed by: CHRISTINE PHAM MD | + + + +---------+ + + | Performing | Address | City/State/Zipcode | Phone Number | | Organization | | | | + +---------+ + + | MISCELLANEOUS LAB | | | [phone] | + +---------+ + + | MISCELANIOUS LAB | | | [phone] | + +---------+ + + Urinalysis With [...] - 1.030 | [facility] | | | [place] | | | [facility] | | | [...] + + + + + | [facility] | [address] | [place] [address] | | | [facility] | | | | [...] SACRED | [address] | [place] [address] | | | [facility] | | [...] + | [facility] | [address] | [place] [address] | | | [facility] | | | | [...] + | [facility] | [address] | [place] [address] | | | [facility] | [...] + + + | Glucose | 81Comment: Guinean | 65 - 99 mg/dL | [facility] | | | | Diabetes Association | [...] | | | | failure.For | | [place] | | | | Americans, multiply the [...] + | [facility] | [address] | [place] [address] | | | [facility] | | [...] + | [facility] | [address] | [place] [address] | | | [facility] | [...] + + | [facility] | [address] | [place] [address] | | | [facility] | | | | [...] + + | [facility] | [address] | [place] [address] | | | [facility] | | | | | LABORATORY | | | | + + + + + documented in this encounter Visit Diagnoses Not on filedocumented in this encounter"
--- OUTSIDE RECORDS SUMMARY | ~2020-03-10 | XMS | Encounter Summary ---
Demographics + + + | Address | [address] | | | [place] [address] | + + + | Home Phone [...] [place] | | | | | [address] | | + + + + + | Scot Damico | ECON | [address] | | | | | [place] [address] | | + + + + + Care Team Providers + +------+ + | Care Director Of Product Management Name | Role | Phone | + [...] + | 07/29/ | Office | [facility] | Offenstein, | Chronic obstructive | | 2014 | Visit | PULMONARY [address] | Irina Sofia MD | pulmonary disease, | | | | [place], | | unspecified COPD | | | | [place] [address] | | type (HCC); | | | | [phone] | | Pulmonary nodules; | | | [...] ankle brachial index testi ng done at [facility] and it was normal. He has [...] Laterality: N/A; Surgeon: Theo Garza MD; Location: [facility] Social History: History Social History Marital Status: [...] Narrative Lives: [place] With: his Grew up: [facility] Has previously lived in: [place], [place], born in [place] Exposure to toxic chemicals: possibly as a [...] morning (before breakfast ). Respiratory Therapy Supplies [facility] Res Med S9 auto CPAP 9 cm [...] Chronic obstructive pulmonary disease, unspecified COPD type ([facility]) J44.9 496 Very diffic ult to get [...] made to ensure accuracy; however, inadvertent computerized drop wire hanger errors may be pre sent. documented in this encounter Plan of Treatment +--------+---------+ + + + | Date | Type | Specialty | Care Team | Description | +--------+---------+ + + + | 05/02/ | Office | Neurology | Dada Goodwin, | | | 2019 | Visit | | MD Gabriel SELLERS | | | | | | [facility] [address] | | | | | | [place] [address] | | | | | | [phone] | | | | | | | [...]
--- OUTSIDE RECORDS SUMMARY | ~2020-03-10 | XMS | Encounter Summary ---
Demographics + + + | Address | [address] | | | [place] [address] | + + + | Home Phone | | + + + | Preferred Language | Unknown | + + + | Marital Status | | + + + | Worship Affiliation | 1041 | + + + [...] [place] | | | | | [address] | | + + + + + | Scot Damico | ECON | [address] | | | | | [place] [address] | | + + + + + Care Team Providers + +------+ + | Care Evp Operations Name | Role | Phone | + +------+ + | Ralph Chatman MD | PCP | | + +------+ + Reason for Visit + + + | Reason | Comments | + + + | Appointment | consult | + + + Encounter Details +--------+ + + + + | Date | Type | Department | Care Team | Description | +--------+ + + + + | 06/15/ | Telephone | [facility] | Errol, | Appointment | | 2013 | | PULMONARY [address] | Irina Sofia MD | (consult) | | | | [place], | | | | | | [place] [address] | | | | | | [phone] | | | +--------+ + + + [...] D | | | | | | [place] [address] | | | | | | [phone] | | | | | | | | +--------+---------+ + + + documented as of this encounter Visit Diagnoses Not on filedocumented in this encounter"
--- OUTSIDE RECORDS SUMMARY | ~2020-03-10 | XMS | Clinical Summary ---
Demographics + + + | Address | [address] | | | [place] [address] | + + + | Home Phone | | + + + | Preferred Language | Unknown | + + + | Marital Status | | + + + | Latter-Day Affiliation | 1041 | + + + [...] [place] | | | | | [address] | | + + + + + | Scot Mookie | ECON | [address] | | | | | [place] [address] | | + + + + + Care Team Providers + +------+ + | Care Chef Head Name | Role | Phone | + [...] D | | | | | | [place] [address] | | | | | | [phone] | | | | | | | [...] - | | | 5076 | | [id number]: Qty: 1 on | | Heart | MEDT | | | /[id number] | | 01/19/2016 by Nghia, | | | | | | [address] | | Jude Rodriguez MD at [facility] | | | | | | / | | [facility] | | | | | | | + +------+-------+ +--------+--------+--------+ + + | Description:RIGHT VENTRICULAR | | LEAD | + + + +------+-------+ +---+---+--------+ | Lead Capsurefix Novus 5076 - | Lead | N/A: | MEDTRONIC - | | | 5076 | | [id number]: Qty: 1 on | | Heart | MEDT | | | /[id number] | | 01/19/2016 by Nghia, | | | | | | [address] | | Jude Rodriguez MD at [facility] | | | | | | / | | [facility] | | | | | | | + +------+-------+ +---+---+--------+ + + | Description:RIGHT ATRIAL LEAD | + + + +--------+--------+ +---+---+--------+ | Pacer Usama Darden Dev - | Pacema | Left: | MEDTRONIC - | | | [id number] | | [id number]: Qty: 1 on | ker | Chest | MEDT | | | / / | | 01/19/2016 by Nghia, | | | | | | | | Jude Rodriguez MD at [facility] | | | | | | | | [facility] | | | | | | [...] +--------+ +---------+--------+ | MEDICARE | MEDICA | [id number] | 04/06/20 | [phone] | | Medica | | | RE | | 00-Pre | 5 | | re | | | PART A | | sent | | | | | | AND B | | | | | | + +--------+ +--------+ +---------+--------+ | MEDICARE | MEDICA | [id number] | 04/06/20 | [phone] | | Medica | | | RE | | 00-Pre | 5 | | re | | | PART A | | sent | | | | | | AND B | | | | | | + +--------+ +--------+ +---------+--------+ | INDIVIDUAL ASSURANCE | INDIVI | [id number] | 10/07/19 | | | Indemn | [...] +---------+--------+ | EQUITABLE INSURANCE | EQUITA | [id number] | 06/07/20 | [phone] | | Indemn [...] | + +--------+ +--------+ + + | Iraiad Damico | Person | Self | [birth year] | | [address] | | Steve | al/Fam | | 1935 | [phone] | [place], [place] | | | isa | | | 8 (Home) | [address] | + +--------+ +--------+ + + | Iraida Damico | Person | Self | [birth year] | | [address] | | Steve | al/Fam | | 1935 | [phone] | [place], [place] | | | isa | | | 8 (Home) | [address] | + +--------+ +--------+ + + | Iraida Damico | Person | Self | [birth year] | | [address] | | Steve | al/Fam | | 1935 | [phone] | [place] | | | isa | | | 8 (Home) | [address] | + +--------+ +--------+ + + Advance Directives + + + + + | Type | Date Recorded | Patient | Explanation | | | | Caustic Cresylate Shift Superintendent | | + + + + + | Power of | | | | | Vacuum Tester Cans | | | | + + + + + | Advance | 01/18/2016 9:10 | | | | Directive | AM | | | + + + + +
--- OUTSIDE RECORDS SUMMARY | ~2020-03-10 | XMS | Encounter Summary ---
Demographics + + + | Address | [address] | | | [place] [address] | + + + | Home Phone | | + + + | Preferred Language | Unknown | + + + | Marital Status | Single | + + + | Evangelical Affiliation | CAT | + + + | Race | White | + + + | Ethnic Group | Not or | + + + Author + + + | Author | [facility] | + + + | Organization | [facility] | + + + | Address | Unknown | + + + | Phone | Unavailable | + + + Support + + +---------+ + | Name | Relationship | Address | Phone | + + +---------+ + | Elizabeth Damico | ECON | Unknown | | + + +---------+ + Care Team Providers + +------+ + | Care Value Stream Coach Name | Role | Phone | + +------+ + PCP | Unavailable | + +------+ + Encounter Details +--------+ + + + + | Date | Type | Department | Care Team | Description | +--------+ + + + + | 04/27/ | Results | Neurosurgery 3250 | Maria C Vences MD | | | 2003 | Only | [facility] | [address] | | | | | Amilcar Mailcode:OP14B | [place], [place] | | | | | [facility] | [address] | | | | | [place], [place] | [phone] | | | | | [address] | | | | | | [phone] | | | +--------+ + + + [...] + + | Performing | Address | City[facility] | Phone Number | | Organization | | | | + +---------+ + + | [facility] DEPARTMENT OF | | | | | RADIOLOGY | | | | + +---------+ + + documented in this encounter Visit Diagnoses Not on filedocumented in this encounter"
--- OUTSIDE RECORDS SUMMARY | ~2020-03-10 | XMS | Encounter Summary ---
Demographics + + + | Address | [address] | | | [place] [address] | + + + | Home Phone | | + + + | Preferred Language | Unknown | + + + | Marital Status | | + + + | Confucianism Affiliation | 1041 | + + + | Race | Unknown | + + + | Ethnic Group | Unknown | + + + Author + + + | Author | [facility] | | | and [place] | + + + | Organization | [facility] | | | [...] [place] | | | | | [address] | | + + + + + | Scot Damico | ECON | [address] | | | | | [place] [address] | | + + + + + Care Team Providers + +------+ + | Care Access Specialist Name | Role | Phone | [...] + + | 12/06/ | Telephone | [facility] | Dada Goodwin, | Other | | 2020 | | NEUROLOGY [address] | | | | | [address] | [facility] [address] | | | | | [place], [place] | [place] [address] | | | | | [address] | [phone] | | | | | [phone] | | | +--------+ + + + [...] D | | | | | | [place] [address] | | | | | | [phone] | | | | | | | | +--------+---------+ + + + documented as of this encounter Visit Diagnoses Not on filedocumented in this encounter"
--- OUTSIDE RECORDS SUMMARY | ~2020-03-10 | XMS | Encounter Summary ---
Demographics + + + | Address | [address] | | | [place] [address] | + + + | Home Phone | | + + + | Preferred Language | Unknown | + + + | Marital Status | | + + + | Congregation Affiliation | 1041 | + + + [...] [place] | | | | | [address] | | + + + + + | Scot Damico | ECON | [address] | | | | | [place] [address] | | + + + + + Care Team Providers + +------+ + | Care Lacquer Sizer Name | Role | Phone | + [...] . | | | | | [place] | | | | | | [place] [id number] | (Fax) | | | | | [phone] | | | +--------+ + + + [...] | | | [place] [address] | | | | | | [phone] | | | | | | | | +--------+---------+ + + + documented as of this encounter Visit Diagnoses Not on filedocumented in this encounter"
--- OUTSIDE RECORDS SUMMARY | ~2020-03-10 | XMS | Encounter Summary ---
Demographics + + + | Address | [address] | | | [place] [address] | + + + | Home Phone [...] [place] | | | | | [address] | | + + + + + | Scot Damico | ECON | [address] | | | | | [place] [address] | | + + + + + Care Team Providers + +------+ + | Care Belt Tender Name | Role | Phone | + +------+ + PCP | Unavailable | + +------+ + Encounter Details +--------+ + + + + | Date | Type | Department | Care Team | Description | +--------+ + + + + | 07/07/ | Hospital | [facility] | Mio Hughes, | | | 2011 - | Encounter | MED CTR XRAY [address] | [place] [address] | | | | | [place] | [address] [place], [place] | | | 07/09/ | | [place] [address] | [id number] | | | 2011 | | [phone] | | | +--------+ + + + [...] | | | [place] [address] | | | | | | [phone] | | | | | | | [...] Performed At | + + + | [facility] Diagnostic Imaging | PENDROY | | Department [address] [facility] | [facility] | | [ rep [address]] [ rep [facility] | | st zip] Signed | - IMAGING | | | | | Patient Name: IRAIDA DAMICO Physician: | | | : 1935 Age: 77 Sex: M Unit #: [id number] | | | Exam Date: 07/07/12 Location: [facility] | | | Report #: [id number] Page: | | | %(RAD)RES..mtdd.print.filter("pg") of %(RAD) | | | RES..mtdd.print.filter("tpg") | | | | | | Accession Number: [id number] | | | E C H O C A R D I O G R A P H Y R E P O R T | | | HEIGHT: 5'10" WEIGHT: 185# | | | TECHNICAL DOCUMENTATION SPECIALIST: [place] REFERRING DR: WILLIAM MARTINEZ DR: | [...] Transcribed | | | Date/Time: 07/08/2012 11:44 Geological Aide: | | | <<Signature on File>> | | | S | | | Yordy Adair MD07/08/12 1447 <Electronically signed by [place]via Vega. | | | Mana CHAMBERLAIN> S Yordy Adair MD 07/08/12 1128 | | | Geological Aide: IP [employer] Pbdxwvbicyjez69/02/12 1144 | | | Mio [place] MD | | + + + + + + + + | Performing | Address | City/State/Zipcode | Phone Number | | Organization | | | | + + + + + | [facility] | [address] | [place] | [phone] | | [facility] | | [address] | | | - IMAGING | | | | + + + + + documented in this encounter Visit Diagnoses Not on filedocumented in this encounter
--- OUTSIDE RECORDS SUMMARY | ~2020-03-10 | XMS | Encounter Summary ---
Demographics + + + | Address | [address] | | | [place] [address] | + + + | Home Phone | | + + + | Preferred Language | Unknown | + + + | Marital Status | | + + + | Faith Affiliation | 1041 | + + + | Race | Unknown | + + + | Ethnic Group | Unknown | + + + Author + + + | Author | [facility] | | | and [place] | + + + | Organization | [facility] | | | and [...] [place] | | | | | [address] | | + + + + + | Scot Damico | ECON | [address] | | | | | [place] [address] | | + + + + + Care Team Providers + +------+ + | Care Buckshot Swage Operator Name | Role | Phone | + +------+ + | Ralph Chatman MD | PCP | | + +------+ + Encounter Details +--------+ + + + + | Date | Type | Department | Care Team | Description | +--------+ + + + + | 06/02/ | Hospital | [facility] | Conversion | Other | | 2015 | Encounter | [facility]ICAL CENTER | Transaction, | musculoskeletal | | | | ULTRASOUND [address] | Provider Unknown | symptoms referable | | | | [address] | | to limbs(729.89) | | | | [place], [place] | (Fax) | | | | | [address] | | | | | | [phone] | | | +--------+ + + + [...] | | | | | | [address] | | | | | | [place] [address] | | | | | | [phone] | | | | | | | [...] Niles Recinos Conversion - 05/22/2019 9:35 AM GUALBERTO JARAMILLO [facility] | | [...]
--- OUTSIDE RECORDS SUMMARY | ~2020-03-10 | XMS | Encounter Summary ---
Demographics + + + | Address | [address] | | | [place] [address] | + + + | Home Phone | | + + + | Preferred Language | Unknown | + + + | Marital Status | Single | + + + | Yazidism Affiliation | CAT | + + + | Race | White | + + + | Ethnic Group | Not or | + + + Author + + + | Author | [facility] | + + + | Organization | [facility] | + + + | Address | Unknown | + + + | Phone | Unavailable | + + + Support + + +---------+ + | Name | Relationship | Address | Phone | + + +---------+ + | Elizabeth Damico | ECON | Unknown | | + + +---------+ + Care Team Providers + +------+ + | Care Automat Watcher Name | Role | Phone | + [...] W | | | | ON | [facility] 4th Floor [address] | [facility] | | | | | [address] | Road [place], [place] | | | | | Mailcode: [facility] | [address] | | | | | [facility] | | | | | | and Healing, | | | | | | Building 1,4th Floor | | | | | | [place], [place] | | | | | | [address] | | | | | | [phone] | | | +--------+ + + + [...]
--- OUTSIDE RECORDS SUMMARY | ~2020-03-10 | XMS | Encounter Summary ---
Demographics + + + | Address | [address] | | | [place] [address] | + + + | Home Phone [...] [place] | | | | | [address] | | + + + + + | Scot Damico | ECON | [address] | | | | | [place] [address] | | + + + + + Care Team Providers + +------+ + | Care Dry House Worker Name | Role | Phone | [...] | | | | the | [place] [address] | [place] | | | | | musculoskele | Phone: | [address] | | | | | [employer] system | [phone] | Phone: | | | | | | Fax: | [phone] | | | | | | [phone] | Fax: | | | | | | | [phone] | + +--------+ + + + + Encounter Details +--------+---------+ + + + | Date | Type | Department | Care Team | Description | +--------+---------+ + + + | 12/06/ | Office | [facility] | DanielDada toledo, | Weakness (Primary | | 2020 | Visit | NEUROLOGY [address] | Dx); Falls | | | | [address] | [address] | infrequently; | | | | [place] | [place] [address] | Neuropathy | | | | [address] | [phone] | | | | | [phone] | | | +--------+---------+ + + + [...] mg by mouth Daily., Disp: , Rfl: Gepgjfg-Fskhkueauytbm-Gzqgodjv (EXCEDRIN MIGRAINE PO), Take 1 tablet by [...] bronchiectasis, followed by a lung doctor in [place] Social History Socioeconomic History Marital status: Spouse [...] file Gets together: Not on file Attends sikh service: Not on file Active member of [...] Narrative Lives: [place] With: his Grew up: [facility] Has previously lived in: [place], [place], born in [place] Exposure to toxic chemicals: possibly as a [...] [place] | | | | | | [place] [address] | | | | | | [phone] | | | | | | | [...]
--- OUTSIDE RECORDS SUMMARY | ~2020-03-10 | XMS | Encounter Summary ---
Demographics + + + | Address | [address] | | | [place] [address] | + + + | Home Phone [...] [place] | | | | | [address] | | + + + + + | Scot Damico | ECON | [address] | | | | | [place] [address] | | + + + + + Care Team Providers + +------+ + | Care Coremaker Supervisor Name | Role | Phone | + +------+ + | Ralph Chatman MD | PCP | | + +------+ + Encounter Details +--------+ + + + + | Date | Type | Department | Care Team | Description | +--------+ + + + + | 06/02/ | Hospital | [facility] | Conversion | Other | | 2015 | Encounter | MEDICAL CENTER | Transaction, | musculoskeletal | | | | ULTRASOUND [address] | Provider Unknown | symptoms referable | | | | [address] | | to limbs(729.89) | | | | [place], [place] | (Fax) | | | | | [address] | | | | | | [phone] | | | +--------+ + + + [...] | | | [place] [address] | | | | | | [phone] | | | | | | | [...]
--- OUTSIDE RECORDS SUMMARY | ~2020-03-10 | XMS | Encounter Summary ---
Demographics + + + | Address | [address] | | | [place] [address] | + + + | Home Phone | | + + + | Preferred Language | Unknown | + + + | Marital Status | | + + + | Sikh Affiliation | 1041 | + + + | Race | Unknown | + + + | Ethnic Group | Unknown | + + + Author + + + | Author | [facility] | | | and [place] | + + + | Organization | [facility] | | | [...] [place] | | | | | [address] | | + + + + + | Scot Damico | ECON | [address] | | | | | [place] [address] | | + + + + + Care Team Providers + +------+ + | Care Newborn Hearing Screener Name | Role | Phone | + [...] | | Pulmonary | [place], | [address] | | | | | nodules | Irina B, | [place], | | | | | Procedures | MD [address] | [place] [address] | | | | | CT Chest wo | [address] | Phone: | | | | | Contrast | [place], | [phone] | | | | | | [place] [address] | Fax: | | | | | | | [phone] | +--------+--------+ + + + + Reason for Visit +--------+ + | Reason | Comments | +--------+ + | Apnea | f/u PANCHITO (obstructive sleep apnea) | +--------+ + Encounter Details +--------+---------+ + + + | Date | Type | Department | Care Team | Description | +--------+---------+ + + + | 04/01/ | Office | [facility] | Offenstein, | COPD (chronic | | 2014 | Visit | PULMONARY [address] | Irina Sofia MD | obstructive | | | | [place], | | pulmonary disease) | | | | [place] [address] | | (HCC); PANCHITO | | | | [phone] | | (obstructive sleep | | | [...] issues. Schedule study on your legs at [facility] documented in this encounter Progress Notes [...] N/A; Surgeon: Theo Garza MD; Location: [facility] Social History: History Social History Marital [...] Narrative Lives: [place] With: his Grew up: [facility] Has previously lived in: [place], [place], [place] Exposure to toxic chemicals: possibly as a [...] morning (before breakfast ). Respiratory Therapy Supplies [facility] Res Med S9 auto CPAP 9 cm [...] normal CPAP Data: Dates: 03/02/15-03/31/15 Machine type: [employer] AirAqutose S10 auto CPAP Home Health Company: In [...] made to ensure accuracy; however, inadvertent computerized soap chipper errors may be pre sent. documented in [...] D | | | | | | [place] [address] | | | | | | [phone] | | | | | | | [...] COMPARISON: CT chest 07/29/2014. PROTOCOL: Axial | [facility] | | images of the chest were obtained. Coronal and sagittal reformations | [facility] | | were acquired. FINDINGS: Neck base [...] ST. | [address] | [place] | [phone] | | [facility] | | [address] | | | - IMAGING | | [...]
--- OUTSIDE RECORDS SUMMARY | ~2020-03-10 | XMS | Encounter Summary ---
Demographics + + + | Address | [address] | | | [place] [address] | + + + | Home Phone | | + + + | Preferred Language | Unknown | + + + | Marital Status | Single | + + + | Holiness Affiliation | CAT | + + + [...] Providers + +------+ + | Care Engineering Operator Name | Role | Phone | [...]
--- OUTSIDE RECORDS SUMMARY | ~2020-03-10 | XMS | Encounter Summary ---
Demographics + + + | Address | [address] | | | [place] [address] | + + + | Home Phone | | + + + | Preferred Language | Unknown | + + + | Marital Status | Single | + + + | Orthodox Affiliation | CAT | + + [...] Providers + +------+ + | Care Oven Worker Name | Role | Phone | + +------+ + PCP | Unavailable | + +------+ + Encounter Details +--------+ + + + + | Date | Type | Department | Care Team | Description | +--------+ + + + + | 12/11/ | Ancillary | [facility] Faculty | | | | 2007 | Registratio | Practice [address] | | | | | n | [facility] | | | | | | [place] [address] | | | | | | [phone] | | | +--------+ + + + [...]
--- OUTSIDE RECORDS SUMMARY | ~2020-03-10 | XMS | Encounter Summary ---
Demographics + + + | Address | [address] | | | [place] [address] | + + + | Home Phone [...] + + + | Author | [facility] | + + + | Organization | [facility] | + + + | Address | Unknown | + + + | Phone | Unavailable | + + + Support + + +---------+ + | Name | Relationship | Address | Phone | + + +---------+ + | Elizabeth Damico | ECON | Unknown | | + + +---------+ + Care Team Providers + +------+ + | Care Transmissions Systems Operator Name | Role | Phone | [...] CH16D | | | | | | Percy for [facility] | | | | | | and Healing, | | | | | | [facility], [facility] | | | | | | [place], [place] | | | | | | [address] | | | | | | [phone] | | | +--------+ + + + [...] patchy | | | | | | tuogu-yvka-ezd-brown | | | | | | skin, [id number]. | | | | | | Thesurgical [...] papular | | | | | | xsu-hiit-tjcbz skin, | | | | | | [id number]. Thesurgical | | | | | | [...] patchy | | | | | | achqc-kmks-sal skin, | | | | | | [id number]. Thesurgical | | | | | | [...] [facility] | Mailcode [address] | [place] [address] | | | DERMATOPATHOLOGY | [address] [...]
--- OUTSIDE RECORDS SUMMARY | ~2020-03-10 | XMS | Encounter Summary ---
Demographics + + + | Address | [address] | | | [place] [address] | + + + | Home Phone [...] [place] | | | | | [address] | | + + + + + | Scot Mookie | ECON | [address] | | | | | [place] [address] | | + + + + + Care Team Providers + +------+ + | Care Freight Air Brake Fitter Name | Role | Phone | [...] | | | | | apnea) | [address] | [place] | | | | | Sleep | [place], | [address] | | | | | related | [place] [address] | [place], [place] | | | | | hypoventilat | | [address] | | | | | ion/hypoxemi | | Phone: | | | | | a in | | [phone] | | | | | conditions | | Fax: | | | | | classifiable | | [phone] | | | | | elsewhere | [...] Sofia MD | | | | | [place], | | | | | | [place] [address] | | | | | | [phone] | | | +--------+ + + + [...] | 2019 | Visit | | MD Garbiel [address] | | | | | | [address] | | | | | | [place] [address] | | | | | | [phone] | | | | | | | [...]
--- OUTSIDE RECORDS SUMMARY | ~2020-03-10 | XMS | Encounter Summary ---
Demographics + + + | Address | [address] | | | [place] [address] | + + + | Home Phone [...] Providers + +------+ + | Care Sales Property Manager Name | Role | Phone | [...] as of this encounter Progress Notes Interface, Recreation Adviser In - 2005 10:48 PM PDTClinic Date: [...] x-ray. Francis Moe M.D. CONSTANCE / WALDO [id number] / [id number] / [id number] / Tdocumented in this encounter Plan of Treatment Not on filedocumented as of this encounter Visit Diagnoses Not on filedocumented in this encounter"
--- OUTSIDE RECORDS SUMMARY | ~2020-03-10 | XMS | Encounter Summary ---
Demographics + + + | Address | [address] | | | [place] [address] | + + + | Home Phone [...] [place] | | | | | [address] | | + + + + + | Scot Damico | ECON | [address] | | | | | [place] [address] | | + + + + + Care Team Providers + +------+ + | Care Union Contract Representative Name | Role | Phone | [...] | | | | PACE/REC,W/O | | [address] Phone: | | | | | INDUCT | | [phone] | +--------+--------+ + + + + Encounter [...] [address] | [place] [address] | | | | | [place] | [phone] | | | | | [address] | | | | | | [phone] | | | +--------+---------+ + + + [...] - 01/20/2016 9:20 AM PDT DISCHARGE SUMMARY [facility] PATIENT NAME/: Iraida Damico, (1935) DATE [...] Medtronic pacemaker, model number A2DR01, serial number [id number]. The device looks great at discharge. He [...] syncope. POSTOPERATIVE DIAGNOSIS: Electrophysiology study for syncope. BIOMEDICAL REPAIR TECHNICIAN: Jude Agrawal MD PROCEDURE: The patient presents [...] AV block that is no t reversible. BIOMEDICAL REPAIR TECHNICIAN: Jude Agrawal MD. PROCEDURE: The patient presents with symptomatic bradyarrhythmias from intermittent hig h-degree AV block.Medtronic pacemaker, model number A2DR01, serial number [id number]. Device is seen to sense and pace [...] for Congestion. aka: SUDAFED Respiratory Therapy Supplies [facility] Res Med S9 auto CPAP 9 cm [...] minutes Thank you for allowing [facility] to be involved in the care of [...] Black or tarry stools Any unusual bleeding 8583-7882 [place] [address]. All rights reserve d. This information is [...] D | | | | | | [place] [address] | | | | | | [phone] | | | | | | | [...] | 10:51 AM | | | | ([id number]) | | PDT | | | + [...] | [facility] | | | | [facility] | [facility] | | [facility], | | HEART | | | | [address] [place], [place] | | MEDICAL | | | | [address] | | CENTER | | | | | | LABORATORY | | + + + + + + + + | Specimen | + + | | + + + + + + + | Performing | Address | City/State/Zipcode | Phone Number | | Organization | | | | + + + + + | [facility] | [address] | [place] [address] | | | [facility] | | | | [...] + | [facility] | [address] | [place] [address] | | | [facility] | | | | | LABORATORY [...] + + | Glucose | 103 (H)Comment: [place] | 65 - 99 mg/dL | [facility] [...] | >60Comment: GFR <60: | >60 | [facility] | | | GFR | Chronic kidney [...] | | | | | | [place] | | | | | | [facility], [address] | | | | | | [address] [place] [address] | | | | + + + + + + + + | Specimen | + + | Blood specimen | | (specimen) | + + + + + + + | Performing | Address | City/State/Zipcode | Phone Number | | Organization | | | | + + + + + | [facility] | [address] | [place] [address] | | | [facility] | | | | | LABORATORY [...] | | | | | Starting [facility] 01/18/16 at 1047 | | AM [...] 1:04 | | | | | Starting [facility] 01/19/16 at 1219 | | PM PDT [...] 10:05 | | | | | Intravenous, VEHICLE UPHOLSTERER, Starting | | AM PDT | | | | | 01/18/16 at 0920, For 1 dose, | | | | | | | Pre-op | | | | | | + +---------+ +---+ +---+ +---+---+ | | | +---+---+ documented in this encounter
--- OUTSIDE RECORDS SUMMARY | ~2020-03-10 | XMS | Encounter Summary ---
Demographics + + + | Address | [address] | | | [place] [address] | + + + | Home Phone | | + + + | Preferred Language | Unknown | + + + | Marital Status | | + + + | Sabianist Affiliation | 1041 | + + + | Race | Unknown | + + + | Ethnic Group | Unknown | + + + Author + + + | Author | [facility] | | | and [place] | + + + | Organization | [facility] | | | [...] [place] | | | | | [address] | | + + + + + | Scot Damico | ECON | [address] | | | | | [place] [address] | | + + + + + Care Team Providers + +------+ + | Care Hot Car Charger Name | Role | Phone | + [...] + + | 10/15/ | Office | [facility] | [place], | COPD (chronic | | 2015 | Visit | PULMONARY [address] | Irina Sofia MD | obstructive | | | | [place], | | pulmonary disease) | | | | [place] [address] | | (HCC) (Primary Dx); | | | | [phone] | | Pulmonary nodules; | | | [...] sleep study, which he had done at [facility]. 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 documented in [...] | | | [place] [address] | | | | | | [phone] | | | | | | | [...]
--- OUTSIDE RECORDS SUMMARY | ~2020-03-10 | XMS | Encounter Summary ---
Demographics + + + | Address | [address] | | | [place] [address] | + + + | Home Phone [...] [place] | | | | | [address] | | + + + + + | Scot Damico | ECON | [address] | | | | | [place] [address] | | + + + + + Care Team Providers + +------+ + | Care Quarry Plug And Feather Driller Name | Role | Phone | + +------+ + PCP | Unavailable | + +------+ + Encounter Details +--------+ + + + + | Date | Type | Department | Care Team | Description | +--------+ + + + + | 11/15/ | Hospital | [facility] | | | | 1995 | Encounter | MED CTR OP [facility] | | | | | | [address] [place] | | | | | | [place] [address] | | | | | | [phone] | | | +--------+ + + + [...] | | | [place] [address] | | | | | | [phone] | | | | | | | | +--------+---------+ + + + documented as of this encounter Visit Diagnoses Not on filedocumented in this encounter"
--- OUTSIDE RECORDS SUMMARY | ~2020-03-10 | XMS | Encounter Summary ---
Demographics + + + | Address | [address] | | | [place] [address] | + + + | Home Phone [...] Team Providers + +------+ + | Care Board Certified Arts Therapist Name | Role | Phone | + [...] + + + + | [facility] | [address] [facility] | [place] [address] | | | PATHOLOGY | [address] | | | + + + + + | [facility] | [address] [facility] | [place] [address] | | | PATHOLOGY | [address] [...] + + + | [facility] | [address] | [place] [address] | | | LABORATORY | | | [...] DEPARTMENT OF | [address] | [place] [address] | | | PATHOLOGY | [address] | | | + + + + + | [facility] DEPARTMENT OF | [address] | [place] [address] | | | PATHOLOGY | [address] [...] | + + + + + | [facility] DEPARTMENT OF | [address] | [place] [address] | | | PATHOLOGY | [address] | | | + + + + + | [facility] DEPARTMENT OF | [address] | [place] [address] | | | PATHOLOGY | [address] [...] + + + + | [facility] | [address] | [place] [address] | | | PATHOLOGY | [address] | | | + + + + + | [facility] | [address] | [place] [address] | | | PATHOLOGY | [address] | | | + + + + + documented in this encounter Visit Diagnoses Not on filedocumented in this encounter"
--- OUTSIDE RECORDS SUMMARY | ~2020-03-10 | XMS | Encounter Summary ---
Demographics + + + | Address | [address] | | | [place] [address] | + + + | Home Phone [...] + + | Author | [facility] | | | and [place] | + + + | Organization | [facility] | | | [...] [place] | | | | | [address] | | + + + + + | Scot Damico | ECON | [address] | | | | | [place] [address] | | + + + + + Care Team Providers + +------+ + | Care Yard Switcher Name | Role | Phone | + +------+ + | Ralph Chatman MD | PCP | | + +------+ + Encounter Details +--------+ + + + + | Date | Type | Department | Care Team | Description | +--------+ + + + + | 04/06/ | Orders Only | [facility] [place] | [place], | Leg fatigue (Primary | | 2014 | | PULMONARY [address] | Irina Sofia MD | Dx) | | | | [place], | | | | | | [place] [address] | | | | | | [phone] | | | +--------+ + + + [...] [address] | | | | | | [address] [place] | | | | | | [place] [address] | | | | | | [phone] | | | | | | | | +--------+---------+ + + + + +---------+--------+ + + | Name | Type | Priori | Associated Diagnoses | Order Schedule | | | | ty | | | + +---------+--------+ + + | VAS Ankle Brachial | Imaging | Routin | Leg fatigue | Ordered: 04/06/2015 | | Index W Exercise | | e | | | + +---------+--------+ + + documented as of this encounter Visit Diagnoses + + | Diagnosis | + + | Leg fatigue - Primary Other musculoskeletal symptoms referable to limbs | + + documented in this encounter"
--- OUTSIDE RECORDS SUMMARY | ~2020-03-10 | XMS | Encounter Summary ---
Demographics + + + | Address | [address] | | | [place] [address] | + + + | Home Phone [...] [place] | | | | | [address] | | + + + + + | Scot Damico | ECON | [address] | | | | | [place] [address] | | + + + + + Care Team Providers + +------+ + | Care Campaign Coordinator Name | Role | Phone | + +------+ + | Ralph Chatman MD | PCP | | + +------+ + Encounter Details +--------+ + + + + | Date | Type | Department | Care Team | Description | +--------+ + + + + | 01/31/ | Documentati | [facility] [place] | [place], | | | 2014 | on | PULMONARY [address] | Irina Sofia MD | | | | | [place], | | | | | | [place] [address] | | | | | | [phone] | | | +--------+ + + + [...] encounter Progress Notes Irina Norton MD - 01/31/2015 7:45 AM PDTFormatting of this note might be differe nt from the original. CPAP NOTE HPI Iraida Damico is a 79 y.o. y.o. male patient of Ralph Chatman. CPAP download reviewed. Past Medical History Past Medical History Diagnosis Date Aortic valve regurgitation 2005 s/p AVR 07/2013 Hypertension Degenerative joint disease Epidural abscess 2003 related to septic knee Pneumonia 04/2013 several episodes, including as an infant Septic arthritis of knee (HCC) after knee surgery Melanoma (HCC) 2009, 2010 x 3 COPD (chronic obstructive pulmonary disease) ([facility]) PANCHITO (obstructive sleep apnea) 09/2014 mild AHI 7.6, severe in supine sleep with AHI of 60.5 Medications: Current outpatient prescriptions:acetaminophen (TYLENOL) 500 mg tablet, Take 500 mg by mout h every 6 hours as needed., Disp: , Rfl: ; albuterol (PROAIR HFA) 90 mcg/puff inhaler, Inha le 2 puffs into the lungs every 6 hours as needed., Disp: , Rfl: ; amLODIPine (NORVASC) 5 m g tablet, Take 5 mg by mouth Daily., Disp: , Rfl: ; ascorbic acid (VITAMIN C) 500 mg tablet , Take 500 mg by mouth Daily., Disp: , Rfl: aspirin 325 mg tablet, Take 325 mg by mouth Daily., Disp: , Rfl: ; B Complex Vitamins (B C OMPLEX 100 PO), Take 100 mg by mouth Daily., Disp: , Rfl: ; budesonide-formoterol (SYMBICOR T) 160-4.5 mcg/puff inhaler, Inhale 2 puffs into the lungs 2 times daily., Disp: 1 Inhaler, Rfl: 3; Cholecalciferol (VITAMIN D3) 2000 UNITS CAPS, Take 2,000 Units by mouth Daily., Dis p: , Rfl: loperamide ([employer] ANTI-DIARRHEAL) 2 MG tablet, Take 2 mg by mouth as needed., Disp: , Rfl: ; losartan (COZAAR) 100 MG tablet, Take 100 mg by mouth Daily., Disp: , Rfl: ; metoprolol ta rtrate (LOPRESSOR) 25 mg tablet, Take 25 mg by mouth 2 times daily., Disp: , Rfl: ; omepraz ole (PRILOSEC) 20 mg capsule, Take 20 mg by mouth every morning (before breakfast)., Disp: , Rfl: Respiratory Therapy Supplies [facility], Res Med S9 auto CPAP 9 cm H2O. Heater and Humidifier. Al l necessary supplies. AHI 7.6, 60.5 in supine. Diagnosis Code(s)327.23. Length of Need 99 mo nths. Please send order to [facility]., Disp: 1 each, Rfl: 99 Objective CPAP Data Dates: 01/17/15-01/23/15 Machine type: ResMed AirSense 10 [employer] [facility] Company: [facility] CPAP Pressure: 9 cmH2O Maximum Pressure: 9 cmH2O AHI: 4.1 events/hour Total number of days: 7 Number of days used: 6 Median daily usage: 4 hours and 7 minutes Percent of days used for more than 4 hours: 57 % Median leak: 9.2 L/min Assessment 1. PANCHITO on CPAP A. Compliance fair, needs improvement B. Control at goal C. Leak low D. Overall doing okay Plan 1. Will be seen in follow up later today CC: Ralph Chatman documented in t his encounter Plan of [...] | | | [place] [address] | | | | | | [phone] | | | | | | | | +--------+---------+ + + + documented as of this encounter Visit Diagnoses Not on filedocumented in this encounter"
--- OUTSIDE RECORDS SUMMARY | ~2020-03-10 | XMS | Encounter Summary ---
Demographics + + + | Address | [address] | | | [place] [address] | + + + | Home Phone | | + + + | Preferred Language | Unknown | + + + | Marital Status | | + + + | Tenriism Affiliation | 1041 | + + + | Race | Unknown | + + + | Ethnic Group | Unknown | + + + Author + + + | Author | [facility] | | | and [place] | + + + | Organization | [facility] | | | [...] [place] | | | | | [address] | | + + + + + | Scot Damico | ECON | [address] | | | | | [place] [address] | | + + + + + Care Team Providers + +------+ + | Care Cloth Doubling Machine Operator Name | Role | Phone | + +------+ + | Ralph Chatman MD | PCP | | + +------+ + Encounter Details +--------+ + + + + | Date | Type | Department | Care Team | Description | +--------+ + + + + | 07/29/ | Hospital | [facility] | [place], | Cough | | 2013 | Encounter | MED CTR PULMONARY | Irina Sofia MD | | | | | FUNCTION [address] | | | | | | [place], | | | | | | [place] [address] | | | | | | [phone] | | | +--------+ + + + [...] D | | | | | | [place] [address] | | | | | | [phone] | | | | | | | [...] | | Irina Norton MD 08/03/2014 9:22 [facility] | | | [facility] CC: Ralph Chatman | | + + [...] signed by: Irina Norton, | | 08/03/2014 9:[address] | |[facility] | | | |CC: Ralph Chatman | + + documented in this encounter Visit Diagnoses + + | Diagnosis | + + | Cough | + + documented in this encounter"
--- OUTSIDE RECORDS SUMMARY | ~2020-03-10 | XMS | Encounter Summary ---
Demographics + + + | Address | [address] | | | [place] [address] | + + + | Home Phone [...] Team Providers + +------+ + | Care Automatic Stacker Name | Role | Phone | + [...] as of this encounter Progress Notes Interface, Boiler Testing Technician In - 05/06/2005 6:14 AM PDTClinic Date: [...] Maria C Vences M.D. LEO / WALDO [id number] / [id number] / [id number] / cc: Arturo Chatman M.D. [facility] [address] [place] [id number] signed by Interface, Boiler Testing Technician In at 05/06/2005 6:1 4 AM PDTdocumented in this encounter Plan of Treatment Not on filedocumented as of this encounter Visit Diagnoses Not on filedocumented in this encounter"
--- OUTSIDE RECORDS SUMMARY | ~2020-03-10 | XMS | Encounter Summary ---
Demographics + + + | Address | [address] | | | [place] [address] | + + + | Home Phone [...] [place] | | | | | [address] | | + + + + + | Scot Damico | ECON | [address] | | | | | [place] [address] | | + + + + + Care Team Providers + +------+ + | Care Bulb Assembler Name | Role | Phone | + +------+ + | Ralph Chatman MD | PCP | | + +------+ + Encounter Details +--------+ + + + + | Date | Type | Department | Care Team | Description | +--------+ + + + + | 07/16/ | Orders Only | [facility] | Milvia Snyder | | | 2018 | | CONVERSION [address] | MD Jeannette [address] | | | | | ADAM ZEPEDA | [address] | | | | | [place] | [place] | | | | | [address] | [address] | | | | | [phone] | [phone] | | | | | | | [...] D | | | | | | [place] [address] | | | | | | [phone] | | | | | | | [...] | | | function. 3. 27 mm 2threads Gonzalez II porcine Aortic valve is well [...] 0.03 m/s | | | MV Dec Attala: 5.81 m/s2 MV DecT: 167.95 ms MV E William: 0.97 | | | m/s MV E/A Ratio: 28.85 MV PHT: 48.70 ms MVA By PHT: 4.51 | | | cm2 Septal e': 0.09 m/s Septal E/e': 10.75 RAP: 5 mmHg | | | RVSP: 32.36 mmHg TR maxP.36 mmHg TR Vmax: 2.61 m/s | | | Elementary School Tutor: AUSTYN Authenticated by: Boogie [place] Report | | | Date/Time: 07-17-2018 18:24:47 | | + + + + + | Procedure Note | + + | Niles Recinos Conversion - 05/28/2019 4:31 PM PDT Patient Name: Myron Damico of | | : 1935 Performing Physician: Boogie | | [facility] INDICATIONS------ | | -----CHF, Porcine aortic valve [...] cmLVIDd: 5.86 cmLVPWd: 1.03 cmLVOT Area: 5.53 dr0CSCF Diam: 2.65 cm%FS: 19.07 | | %EF(Teich): [...] (A-L): 37.09 ml/m2LAAs A2C: 19.60 | | [id number] A-L A2C: 57.63 mlLALs A2C: 5.66 cmLAAs A4C: 23.43 [id number] A-L A4C: | | 83.79 mlLALs A4C: 5.56 cmRAAs: 20.90 lu6QASUC A-L: 65.61 mlRAESV MOD: 62.32 | | mlRALs: 5.65 cmTAPSE: 2.05 cmAV maxP.27 mmHgAV meanP.99 mmHgAV Vmax: | | 2.56 m/Nikki Vmean: 1.91 m/Nikki VTI: 50.23 cmAVA Vmax: 1.42 cm2AVA (VTI): 1.38 | | [id number] maxP.74 mmHgLVOT meanP.93 mmHgLVSI Dopp: 36.70 ml/m2LVSV Dopp: | | 69.36 mlLVOT Vmax: 0.66 m/sLVOT Vmean: 0.45 m/sLVOT VTI: 12.52 cmMV A William: 0.03 | | m/sMV Dec Attala: 5.81 m/s2MV DecT: 167.95 msMV E William: 0.97 m/sMV E/A Ratio: | | 28.85MV PHT: 48.70 msMVA By PHT: 4.51 ks8Ifalbp e': 0.09 m/sSeptal E/e': | | 10.75RAP: 5 mmHgRVSP: 32.36 mmHgTR maxP.36 mmHgTR Vmax: 2.61 m/s | | Elementary School Tutor: DHAuthenticated by: Boogie Garcíacox north Date/Time: 07-17-2018 18:24:47 | | IMPRESSION: 1. [...] A William: 0.03 m/s | |MV Dec Attala: 5.81 m/s2 | |MV DecT: 167.95 ms | |MV E William: 0.97 m/s | |MV E/A Ratio: 28.85 | |MV PHT: 48.70 ms | |MVA By PHT: 4.51 cm2 | |Septal e': 0.09 m/s | |Septal E/e': 10.75 | |RAP: 5 mmHg | |RVSP: 32.36 mmHg | |TR maxP.36 mmHg | |TR Vmax: 2.61 m/s | | | |Elementary School Tutor: AUSTYN | |Authenticated by: Boogie Wang | |Report Date/Time: 07-17-2018 18:24:47 | | | |IMPRESSION: | |1. The left ventricle is mildly dilated, low normal systolic function EF 50%. | |2. The right ventricle is normal in size and function. | |3. 27 mm [employer] Gonzalez II porcine Aortic valve is well seated with normal function. | |4. Moderate tricuspid regurgitation present. | |5. There is no pericardial effusion. | + + documented in this encounter Visit Diagnoses Not on filedocumented in this encounter"
--- OUTSIDE RECORDS SUMMARY | ~2020-03-10 | XMS | Encounter Summary ---
Demographics + + + | Address | [address] | | | [place] [address] | + + + | Home Phone [...] [place] | | | | | [address] | | + + + + + | Scot Damico | ECON | [address] | | | | | [place] [address] | | + + + + + Care Team Providers + +------+ + | Care Wellness Health Coach Name | Role | Phone | [...] | sleep apnea); | | | | [place], | | Essential | | | | [place] [address] | | hypertension; COPD | | | | [phone] | | (chronic obstructive | | | [...] [facility]. I would call the [employer] health company to make an appointment to [...] Laterality: N/A; Surgeon: Theo Garza MD; Location: [facility] Social History: History Social History Marital [...] Narrative Lives: [place] With: his Grew up: [facility] Has previously lived in: [place], [place] Exposure to toxic [...] made to ensure accuracy; however, inadvertent computerized dog handler errors may be pre sent. documented in [...] [place]on | | | | | | [place] [address] | | | | | | [phone] | | | | | | | [...]
--- OUTSIDE RECORDS SUMMARY | ~2020-03-10 | XMS | Clinical Summary ---
Demographics + + + | Address | [address] | | | [place] [address] | + + + | Home Phone [...] Team Providers + +------+ + | Care Integrity Specialist Name | Role | Phone | + +------+ + PCP | Unavailable | + +------+ + Source Comments OHJOHNNY is fully live on both [facility] and [facility] Allergies No Known Allergies Medications Not [...] | | | | | | | [address] | | + +--------+ +--------+ + +--------+ [...] +--------+ +--------+ + + | Iraida Damico Council | Person | Self | [birth year] | [address] | | | al/Fam | | 1935 | [phone] | [place] [address] | | | isa | | | 8 (Home) | | + +--------+ +--------+ + +"
--- OUTSIDE RECORDS SUMMARY | ~2020-03-10 | XMS | Encounter Summary ---
Demographics + + + | Address | [address] | | | [place] [address] | + + + | Home Phone | | + + + | Preferred Language | Unknown | + + + | Marital Status | Single | + + + | Shinto Affiliation | CAT | + + + [...] Team Providers + +------+ + | Care Group Worker Name | Role | Phone | [...] as of this encounter Discharge Summaries Interface, Database Admin In - 2005 6:08 PM PDTAdmission Date: 11/24/2003 Discharge Date: 12/01/2003 ATTENDING PHYSICIAN: Maria C Vences M.D. PRINCIPAL FINAL DIAGNOSIS: L3-4 epidural abscess/inflammatory tissue. ADDITIONAL DIAGNOSIS: 1. Anemia. 2. E Faecalis positive blood cultures from [facility]. PRINCIPAL PROCEDURE: L3 through 4 total laminectomy. Bilateral L3 to L4 and L4 to L5 foraminotomies. ADDITIONAL PROCEDURES: 1. November 27, 2003, PICC line placement. 2. Infectious disease consult. 3. Physical therapy/occupational therapy. 4. Postoperative x-ray November 28, 2003. HISTORY OF PRESENT ILLNESS: This is a 69-year-old man who presented to [facility] after several days of fevers and excruciating [...] never shown signs of radicular pain. At [facility], blood was drawn on November 22, which grew E fecalis. His white count was 30,000. Hematocrit started at 34 and drifted down into the high 20s by the time of discharge from [facility], with iron level, and high reticulocyte count. MRI of the lumbar spine showed a large epidural abscess from L2 to S1. At this point, the decision was made to transfer this patient to [facility] for surgery with Maria C Vences [...] positive blood culture for E fecalis at [facility], infectious disease recommended colonoscopy as an [...] was quite painful. They recommended transfer to detention facility for further mobilization. The patient was [...] primary care provider, Arturo Marcum, phone number [phone] and fax number [phone]. Tabby Mcnulty M.D. Maria C Vences M.D. Attending Physician KD:татьяна D: 11-30-2003 T: 11-30-2003 C: 12/02/2003 cr PLEASE FAX: [phone] signed by Interface, Database Admin In at 2005 6:08 PM PDTdocumented in this encounter Plan of Treatment Not on filedocumented as of this encounter Visit Diagnoses Not on filedocumented in this encounter"
--- OUTSIDE RECORDS SUMMARY | ~2020-03-10 | XMS | Encounter Summary ---
Demographics + + + | Address | [address] | | | [place] [address] | + + + | Home Phone | | + + + | Preferred Language | Unknown | + + + | Marital Status | | + + + | Orthodoxy Affiliation | 1041 | + + + | Race | Unknown | + + + | Ethnic Group | Unknown | + + + Author + + + | Author | [facility] | | | and [place] | + + + | Organization | [facility] | | | and [...] [place] | | | | | [address] | | + + + + + | Scot Damico | ECON | [address] | | | | | [place] [address] | | + + + + + Care Team Providers + +------+ + | Care Picket Labor Union Name | Role | Phone | + +------+ + | Ralph Chatman MD | PCP | | + +------+ + Encounter Details +--------+ + + + + | Date | Type | Department | Care Team | Description | +--------+ + + + + | 08/21/ | Emergency | [facility] | Olaf Cook DO | Elevated blood | | 2016 - | | [facility] | [address] | pressure; Skin tear | | | | [facility] [place] | [place], [place] | of forearm without | | 08/22/ | | [address] | [address] | complication, left, | | 2016 | | [place] | [phone] | initial encounter | | | | [address] | | | | | | [phone] | | | +--------+ + + + [...] D | | | | | | [place] [address] | | | | | | [phone] | | | | | | | [...]
--- OUTSIDE RECORDS SUMMARY | ~2020-03-10 | XMS | Encounter Summary ---
Demographics + + + | Address | [address] | | | [place] [address] | + + + | Home Phone | | + + + | Preferred Language | Unknown | + + + | Marital Status | | + + + | Gnosticist Affiliation | 1041 | + + + | Race | Unknown | + + + | Ethnic Group | Unknown | + + + Author + + + | Author | [facility] | | | and [place] | + + + | Organization | [facility] | | [...] [place] | | | | | [address] | | + + + + + | Scot Damico | ECON | [address] | | | | | [place] [address] | | + + + + + Care Team Providers + +------+ + | Care Environmental Engineering Aide Name | Role | Phone | + +------+ + | Ralph Chatman MD | PCP | | + +------+ + Encounter Details +--------+ + + + + | Date | Type | Department | Care Team | Description | +--------+ + + + + | 08/17/ | Abstract | [facility] | Eli Rubio, | Aortic valve | | 2012 | | [facility] | COMMUNITY EDUCATION COORDINATOR | regurgitation | | | | [facility] | | (Primary Dx); | | | | [address] | | Hypertension; | | | | [place] | | Degenerative joint | | | | [address] | | disease; Epidural | | | | [phone] | | abscess | +--------+ + + [...] D | | | | | | [place] [address] | | | | | | [phone] | | | | | | | [...]
--- OUTSIDE RECORDS SUMMARY | ~2020-03-10 | XMS | Encounter Summary ---
Demographics + + + | Address | [address] | | | [place] [address] | + + + | Home Phone | | + + + | Preferred Language | Unknown | + + + | Marital Status | Single | + + + | Muslim Affiliation | CAT | + + + | Race | White | + + + | Ethnic Group | Not or | + + + Author + + + | Author | [facility] | + + + | Organization | [facility] | + + + | Address | Unknown | + + + | Phone | Unavailable | + + + Support + + +---------+ + | Name | Relationship | Address | Phone | + + +---------+ + | Elizabeth Damico | ECON | Unknown | | + + +---------+ + Care Team Providers + +------+ + | Care Server Support Technician Name | Role | Phone | [...]
--- OUTSIDE RECORDS SUMMARY | ~2020-03-10 | XMS | Encounter Summary ---
Demographics + + + | Address | [address] | | | [place] [address] | + + + | Home Phone [...] [place] | | | | | [address] | | + + + + + | Scot Damico | ECON | [address] | | | | | [place] [address] | | + + + + + Care Team Providers + +------+ + | Care Child Adolescent Care Name | Role | Phone | + +------+ + | Ralph Chatman MD | PCP | | + +------+ + Encounter Details +--------+ + + + + | Date | Type | Department | Care Team | Description | +--------+ + + + + | 03/01/ | Documentati | [facility] | [place], | | | 2014 | on | PULMONARY [address] | Irina Sofia MD | | | | | [place], | | | | | | [place] [address] | | | | | | [phone] | | | +--------+ + + + [...] documented as of this encounter Progress Notes Marlen Urbano RN - 03/07/2015 11:21 AM PDTCalaure Iraida and relayed CPAP download res ults. Blake per patient. Irina Haynes MD - 03/01/2015 1:20 PM PDTFormatting of this note might be diffe rent from the original. CPAP NOTE HPI Iraida [...] (chronic obstructive pulmonary disease) ([facility]) PANCHITO (obstructive sleep apnea) 09/2014 mild [...] breakfast)., Disp: , Rfl: Respiratory Therapy Supplies MISC, Res Med S9 auto CPAP 9 cm H2O. Heater and Humidifier. Al l necessary supplies. AHI 7.6, 60.5 in supine. Diagnosis Code(s)327.23. Length of Need 99 mo nths. Please send order to [facility] Disp: 1 each, Rfl: 99 Objective CPAP Data: Dates: 01/22/15-02/21/15 Machine type: VUELOGIC Home Health Company: [facility] [place] CPAP Pressure: 9 cmH2O Maximum Pressure: 9 cmH2O AHI: 3.2 events/hour Total number of Days: 31 Number of days used: 31 Median daily usage: 5 hours 31 minutes Percent of days used for more than 4 hours: 74 % Median leak: 3.4 L/min Assessment 1. PANCHITO on CPAP A. Compliance okay, he is getting insufficient sleep B. Control good C. Leak manuel Ortiz Overall looks good Plan 1.Continue CPAP at current settings 2.Focus on getting more sleep, averaging 5 1/2 hours a night on CPAP Irina Norton MD CC: Ralph Chatman documented in t his [...] D | | | | | | [place] [address] | | | | | | [phone] | | | | | | | | +--------+---------+ + + + documented as of this encounter Visit Diagnoses Not on filedocumented in this encounter"
--- OUTSIDE RECORDS SUMMARY | ~2020-03-10 | XMS | Encounter Summary ---
Demographics + + + | Address | [address] | | | [place] [address] | + + + | Home Phone | | + + + | Preferred Language | Unknown | + + + | Marital Status | | + + + | Evangelical Affiliation | 1041 | + + + [...] [place] | | | | | [address] | | + + + + + | Scot Damico | ECON | [address] | | | | | [place] [address] | | + + + + + Care Team Providers + +------+ + | Care Back Tender Name | Role | Phone | + +------+ + | Ralph Chatman MD | PCP | | + +------+ + Encounter Details +--------+ + + + + | Date | Type | Department | Care Team | Description | +--------+ + + + + | 01/26/ | Hospital | [facility] | Mio Hughes, | | | 2012 | Encounter | MED CTR XRAY [address] | MD [address] | | | | | [place] | [address] [place], [place] | | | | | [place] [address] | [address] | | | | | [phone] | | | +--------+ + + + [...] D | | | | | | [place] [address] | | | | | | [phone] | | | | | | | [...] Performed At | + + + | [facility] | [facility] | | Department [address] [facility] | [facility] | | [ rep ct street[address]] [ rep ct [facility] | | st zip] Signed | - IMAGING | | | | | Patient Name: IRAIDA DAMICO Physician: | | | : 1935 Age: 77 Sex: M Unit #: [id number] | | | Exam Date: 01/26/13 Location: [facility] | | | Report #: [id number] Page: | | | %(RAD)RES..mtdd.print.filter("pg") of %(RAD) | | | RES..mtdd.print.filter("tpg") | | | | | | Accession Number: [id number] | | | E C H O C A R D I O G R A P H Y R E P O R T | | | HEIGHT: 5'11" WEIGHT: 185# | | | SOCIAL SCIENCE MANAGER: [place] REFERRING DR: WILLIAM MARTINEZ DR: | [...] Transcribed Date/Time: 01/26/2013 | | | 18:53 Director Of Field Sales: <<Signature | | | on File>> | | | [place] | | | MD Jenny [facility]01/27/13 1304 <Electronically signed by | | | Mirna Alvarado MD, [facility], FACP, FASE, FASNC> [place] | | | MD Jenny [facility] 01/26/13 1542 Director Of Field Sales: Andreina | | | Lduauudaviddk37/22/13 8763 [place] MD | | | | | + + + + + + + + | Performing | Address | City/State/Zipcode | Phone Number | | Organization | | | | + + + + + | [facility] | [address] | [place] | [phone] | | [facility] | | [address] | | | - IMAGING | | | | + + + + + documented in this encounter Visit Diagnoses Not on filedocumented in this encounter
--- OUTSIDE RECORDS SUMMARY | ~2020-03-10 | XMS | Encounter Summary ---
Demographics + + + | Address | [address] | | | [place] [address] | + + + | Home Phone | | + + + | Preferred Language | Unknown | + + + | Marital Status | | + + + | Mormonism Affiliation | 1041 | + + + [...] [place] | | | | | [address] | | + + + + + | Scot Damico | ECON | [address] | | | | | [place] [address] | | + + + + + Care Team Providers + +------+ + | Care Apprentice Architect Name | Role | Phone | + [...] | | Pulmonary | [place], | [address] [place] | | | | | nodules | Irina B, | [place], | | | | | Procedures | MD [address] | [place] [address] | | | | | CT Chest wo | [address] | Phone: | | | | | Contrast | [place], | [phone] | | | | | | [place] [address] | Fax: | | | | | | | [phone] | +--------+--------+ + + + + Encounter Details +--------+ + + + + | Date | Type | Department | Care Team | Description | +--------+ + + + + | 07/29/ | Hospital | [facility] | [place], | Pulmonary nodules | | 2015 | Encounter | MED CTR CT [address] | Irina Sofia MD | | | | | [place], | | | | | | [place] [address] | | | | | | [phone] | | | +--------+ + + + [...] | | | [place] [address] | | | | | | [phone] | | | | | | | | +--------+---------+ + + + documented as of this encounter Procedures + +--------+ + + + | Procedure Name | Priori | Date/Time | Associated Diagnosis | Comments | | | ty | | | | + +--------+ + + + | CT CHEST WO CONTRAST | Routin | 07/29/2015 | Pulmonary nodules | Results for this | | | e | 12:50 PM | | procedure are in the [...] CT chest 07/29/2014. PROTOCOL: Axial | [facility] | | images of the chest were [...] [address] | [place] | [phone] | | [facility] | | [address] | | | - IMAGING | | | | + + + + + documented in this encounter Visit Diagnoses + + | Diagnosis | + + | Pulmonary nodules Other nonspecific abnormal finding of lung field | + + documented in this encounter"
--- OUTSIDE RECORDS SUMMARY | ~2020-03-10 | XMS | Encounter Summary ---
Demographics + + + | Address | [address] | | | [place] [address] | + + + | Home Phone | | + + + | Preferred Language | Unknown | + + + | Marital Status | Single | + + + | Lutheran Affiliation | CAT | + + + [...] Providers + +------+ + | Care Psychology Professor Name | Role | Phone | [...] CH16[facility] | | | | | | [place] [facility] | | | | | | and Healing, | | | | | | [facility] [address], [facility] | | | | | | [place], [place] | | | | | | [address] | | | | | | [phone] | | | +--------+ + + + [...] + + | DERMATOPATHOLOGY(WET | Routin | 01/10/2012 | | Results for this | | [facility]) | e | | | procedure are in the | | | | | | results section. | + +--------+ + + + documented in this encounter Results DERMATOPATHOLOGY(WET [facility]) (01/10/2012) + + + + + + [...] Damico | | | | | | [place]:A: Specimen is | | | | | | labeled "Chest" and | | | | | | consists of an ellipse | | | | | | of garcia-white | | | | | | [id number]. The | | | | | | specimen is oriented by | | | | | | a suture at one apex, | | | | | | which isdesignated as | | | | | | medial by the surgeon. | | | | | | With the suture in the | | | | [...] | | | | SITU, CHEST, AND SCAR. | | | | | | NOTE: Only a small | | | | | | remnant of the original | | | | | | melanoma is present in | | | | | [...] completelyexcised. | | | | | | KPW:emr4/07/18 My | | | | | | [...] [facility] | Mailcode CH[address]D [address] | [place] [address] | | | DERMATOPATHOLOGY | [address] | | | + + + + + documented in this encounter Visit Diagnoses Not on filedocumented in this encounter
--- OUTSIDE RECORDS SUMMARY | ~2020-03-10 | XMS | Encounter Summary ---
Demographics + + + | Address | [address] | | | [place] [address] | + + + | Home Phone [...] [place] | | | | | [address] | | + + + + + | Scot Damico | ECON | [address] | | | | | [place] [address] | | + + + + + Care Team Providers + +------+ + | Care Messenger Floorperson Name | Role | Phone | + [...] | | | | | | [place] [address] | | | | | | [phone] | | | +--------+ + + + [...] | | | [place] [address] | | | | | | [phone] | | | | | | | | +--------+---------+ + + + documented as of this encounter Visit Diagnoses Not on filedocumented in this encounter"
--- OUTSIDE RECORDS SUMMARY | ~2020-03-10 | XMS | Encounter Summary ---
Demographics + + + | Address | [address] | | | [place] [address] | + + + | Home Phone | | + + + | Preferred Language | Unknown | + + + | Marital Status | | + + + | Catholic Affiliation | 1041 | + + [...] [place] | | | | | [address] | | + + + + + | Scot Damico | ECON | [address] | | | | | [place] [address] | | + + + + + Care Team Providers + +------+ + | Care Manager Floral Name | Role | Phone | + +------+ + PCP | Unavailable | + +------+ + Encounter Details +--------+ + + + + | Date | Type | Department | Care Team | Description | +--------+ + + + + | 11/27/ | Hospital [facility] | Boris Barboza | | | 2005 - | Encounter | [facility]ART MED CTR | MD Tomasa NEED ADDRESS | | | | | SURGICAL [address] | | | | 11/30/ | | [place] | | | | 2005 | | [address] | | | | | | [phone] | | | +--------+ + + + [...] | | | [place] [address] | | | | | | [phone] | | | | | | | | +--------+---------+ + + + documented as of this encounter Visit Diagnoses Not on filedocumented in this encounter"
--- OUTSIDE RECORDS SUMMARY | ~2020-03-10 | XMS | Encounter Summary ---
Demographics + + + | Address | [address] | | | [place] [address] | + + + | Home Phone [...] [place] | | | | | [address] | | + + + + + | Scot Damico | ECON | [address] | | | | | [place] [address] | | + + + + + Care Team Providers + +------+ + | Care Basketball Assembler Name | Role | Phone | [...] [address] | | | | | [place] | | [address] | | | | | ELECTROPHYS | | [place] | | | | | Theo NORMAN-V | | YULY [place] | | | | | PACE/REC,W/O | | [address] Phone: | | | | | INDUCT | | [phone] | +--------+--------+ + + + + Encounter Details +--------+ + + + + | Date | Type | Department | Care Team | Description | +--------+ + + + + | 01/17/ | Hospital | [facility] | Jude Agrawal, | | | 2016 - | Encounter | [facility] | MD [address] | | | | | CARDIAC TRANSPLANT | CHARITY [address] | | | 01/19/ | | [address] | [place], [place] | | | 2015 | | [place] | [phone] | | | | | [address] | | | | | | [phone] | | | +--------+ + + + [...] - 01/20/2016 9:20 AM PDT DISCHARGE SUMMARY [facility] PATIENT NAME/: Iraida Damico, (1935) DATE OF ADMISSION: 01/18/2016 DATE OF DISCHARGE: 01/20/2016 DISCHARGING MID-LEVEL: Hedii Araya PA-C DISCHARGING PHYSICIAN: Jude Agrawal MD [...] Medtronic pacemaker, model number A2DR01, serial number [id number]. The device looks great at discharge. He [...] syncope. POSTOPERATIVE DIAGNOSIS: Electrophysiology study for syncope. CABLE PULLER: Jude Agrawal MD PROCEDURE: The patient presents [...] AV block that is no t reversible. CABLE PULLER: Jude Agrawal MD. PROCEDURE: The patient presents with symptomatic bradyarrhythmias from intermittent hig h-degree AV block.Medtronic pacemaker, model number A2DR01, serial number [id number]. Device is seen to sense and pace [...] for Congestion. aka: SUDAFED Respiratory Therapy Supplies [facility] S9 auto CPAP 9 cm [...] minutes Thank you for allowing [facility] to be involved in the care of [...] Black or tarry stools Any unusual bleeding 4632-6207 [place] [id number]. All rights reserve d. This information is [...] D | | | | | | [place] [address] | | | | | | [phone] | | | | | | | [...] | 12:06 PM | | | | ([id number]) | | PDT | | | + +--------+ + + + | EP STUDY POSS | | 01/18/2016 | Bradycardia | | | ABLATION OR IMPLANT | | 10:51 AM | | | | ([id number]) | | PDT | | | + [...] | [facility] | | [facility] | [facility], | | HEART | | | | [address] [place] | | MEDICAL | | | | [address] | | CENTER | | | | | | LABORATORY | | + + + + + + + + | Specimen | + + | | + + + + + + + | Performing | Address | City/State/Zipcode | Phone Number | | Organization | | | | + + + + + | [facility] | [address] | [place] [address] | | | [facility] | | | | | LABORATORY [...] + + | [facility] | [address] | [place] [address] | | | [facility] | | | | | [...] + + | Glucose | 103 (H)Comment: [place] | 65 - 99 mg/dL | [facility] | | | | Diabetes Association | [...] 19 | 8 - 25 mg/dL | [facility] | | | | | | [facility] [...] Heart | | | | | | [facility], [address] | | | | | | , [place] [address] | | | | + + + + + + + + | Specimen | + + | Blood specimen | | (specimen) | + + + + + + + | Performing | Address | City/State/Zipcode | Phone Number | | Organization | | | | + + + + + | [facility] | [address] | [place] [address] | | | [facility] | | | | | [...] 11:43 | | | | | Starting [facility] 01/18/16 at 1047 | | AM [...] 1:04 | | | | | Starting [facility] 01/19/16 at 1219 | | PM PDT [...] 10:05 | | | | | Intravenous, CLOTHING BUSHELER, Starting | | AM PDT | | | | | 01/18/16 at 0920, For 1 dose, | | | | | | | Pre-op | | | | | | + +---------+ +---+ +---+ +---+---+ | | | +---+---+ documented in this encounter
--- OUTSIDE RECORDS SUMMARY | ~2020-03-10 | XMS | Encounter Summary ---
Demographics + + + | Address | [address] | | | [place] [address] | + + + | Home Phone | | + + + | Preferred Language | Unknown | + + + | Marital Status | | + + + | Advent Affiliation | 1041 | + + + [...] [place] | | | | | [address] | | + + + + + | Scot Damico | ECON | [address] | | | | | [place] [address] | | + + + + + Care Team Providers + +------+ + | Care Microwave Engineer Name | Role | Phone | [...] Sofia MD | | | | | [place], | | | | | | [place] [address] | | | | | | [phone] | | | +--------+ + + + [...] | | | [place] [address] | | | | | | [phone] | | | | | | | [...]
--- OUTSIDE RECORDS SUMMARY | ~2020-03-10 | XMS | Encounter Summary ---
Demographics + + + | Address | [address] | | | [place] [address] | + + + | Home Phone [...] Team Providers + +------+ + | Care Cardiac Technologist Name | Role | Phone | + [...] as of this encounter Progress Notes Interface, [employer] In - 2005 7:20 PM PDTClinic Date: 01/27/2004 Clinic: Subjective: This is a 68-year-old male with a history of epidural abscess. Blood cultures were positive for Enterococcus fecalis. He underwent L3-4 laminectomy in November 2003 here at [facility]. He also underwent 6 weeks of [...] Maria C Vences M.D. SHELBY / WALDO [id number] / [id number] / [id number] / Tdocumented in this encounter Plan of Treatment Not on filedocumented as of this encounter Visit Diagnoses Not on filedocumented in this encounter"
--- OUTSIDE RECORDS SUMMARY | ~2020-03-10 | XMS | Encounter Summary ---
Demographics + + + | Address | [address] | | | [place] [address] | + + + | Home Phone | | + + + | Preferred Language | Unknown | + + + | Marital Status | Single | + + + | Worship Affiliation | CAT | + + + | Race | White | + + + | Ethnic Group | Not or | + + + Author + + + | Author | [facility] | + + + | Organization | [facility] | + + + | Address | Unknown | + + + | Phone | Unavailable | + + + Support + + +---------+ + | Name | Relationship | Address | Phone | + + +---------+ + | Elizabeth Damico | ECON | Unknown | | + + +---------+ + Care Team Providers + +------+ + | Care Door Clamper Name | Role | Phone | + +------+ + PCP | Unavailable | + +------+ + Encounter Details +--------+ + + + + | Date | Type | Department | Care Team | Description | +--------+ + + + + | 04/27/ | Results | Neurosurgery 3250 | Maria C Vences MD | | | 2003 | Only | [facility] | [address] | | | | | Amilcar Mailcode:OP14B | [place], [place] | | | | | [place] [employer] | [address] | | | | | [place], [place] | [phone] | | | | | [address] | | | | | | [phone] | | | +--------+ + + + [...] + + | Performing | Address | City/State/[facility] | Phone Number | | Organization | | | | + +---------+ + + | [facility] DEPARTMENT OF | | | | | RADIOLOGY | | | | + +---------+ + + documented in this encounter Visit Diagnoses Not on filedocumented in this encounter"
--- OUTSIDE RECORDS SUMMARY | ~2020-03-10 | XMS | Encounter Summary ---
Demographics + + + | Address | [address] | | | [place] [address] | + + + | Home Phone [...] [place] | | | | | [address] | | + + + + + | Scot Damico | ECON | [address] | | | | | [place] [address] | | + + + + + Care Team Providers + +------+ + | Care Casino Gaming Inspector Name | Role | Phone | + +------+ + PCP | Unavailable | + +------+ + Encounter Details +--------+ + + + + | Date | Type | Department | Care Team | Description | +--------+ + + + + | 02/24/ | Hospital | [facility] | Unknown, | | | 2006 | Encounter | MED CTR XRAY [address] | MD Pratima . | | | | | [place] | | | | | | [place] [address] | (Fax) | | | | | [phone] | | | +--------+ + + + [...] | | | [place] [address] | | | | | | [phone] | | | | | | | | +--------+---------+ + + + documented as of this encounter Visit Diagnoses Not on filedocumented in this encounter"
--- OUTSIDE RECORDS SUMMARY | ~2020-03-10 | XMS | Encounter Summary ---
Demographics + + + | Address | [address] | | | [place] [address] | + + + | Home Phone | | + + + | Preferred Language | Unknown | + + + | Marital Status | | + + + | Yazidi Affiliation | 1041 | + + + [...] [place] | | | | | [address] | | + + + + + | Scot Mookie | ECON | [address] | | | | | [place] [address] | | + + + + + Care Team Providers + +------+ + | Care Brain Wave Technician Name | Role | Phone | [...] | | thoracic | Irina Sofia, | [facility] | | | | | region | MD [address] | [address] | | | | | | [address] | [place] | | | | | | [place], | [place] | | | | | | [place] [address] | [address] | | | | | | | Phone: | | | | | | | [phone] | | | | | | | Fax: | | | | | | | [phone] | +--------+ + + + + + [...] | | Shortness | [place], | [address] | | | | | of breath | Irina B, | [place], | | | | | Procedures | MD [address] | [place] [address] | | | | | CT Chest wo | [address] | Phone: | | | | | Contrast | [place], | [phone] | | | | | | [place] [address] | Fax: | | | | | | | [phone] | +--------+--------+ + + + + Reason [...] [address] | | | | | [place] OFFICE | [address] | | | | | CONSULTATION | Carmela | [place], | | | | | NEW/ESTAB | Juan [address] | [place] [address] | | | | | PATIENT [address] | [place], | | | | | | MIN [place] | [place] | | | | | | OFFICE | [address] | | | | | | OUTPATIENT | Phone: | | | | | | NEW 60 | [phone] | | | | | | MINUTES [place] | Fax: | | | | | | ADV CARE | [phone] | | | | | | PLAN | | | | | | | DISCUSSED, | | | | | | | PLAN OR | | | | | | | SURROGATE | | | | | | | DOCUMENTED | | | | | | | [place] | | | | | | | PNEUMOCOCCAL | | | | | | | | | | | | | | IMMUNIZATION | | | | | | | ORDERED OR | | | | | | | ADMINISTERED | | | | | | | [place] CALC | | | | | | | BMI OUT NRM | | | | | | | LLOYD NOF/U | | | | | | | [place] PT FALLS | | | | | | | ASSESS DOC | | | | | | | 0-1 FALLS | | | | | | | W/OUT INJ | | | | | | | PAST YR [place] | | | | | | | DOC CUR MEDS | | | | | | | BY PROV [place] | | | | | | | PAIN NEG NO | | | | | | | PLAN [place] | | | | | | | [...] | (Primary Dx); | | | | [address] [address] [place], | | Kyphosis of thoracic | | | | [place] [address] | | region | | | | [phone] | | | +--------+---------+ + + + [...] placed the referral to physical therapy at [facility] for the strengthening exercises. Three Breathing [...] original. Pulmonary Consult Referring Provider: Ralph Chatman [facility] Iraida Wilson Mookie is a 79 y.o. [...] ve shortness of breath. He contacted his relationship executive this past summer, and he had a [...] 2006 Aortic valve replacement/repair 07/08/2013 27mm Metronic Gonzlaez II bioprosthesis, Dr. Ceballos Transesophageal echocardiogram 03/30/2014 ECHO TRANSESOPHAGEAL performed by Theo Garza MD at [facility] Knee arthroscopy 2003 Right Total knee arthroplasty 2006 Right Family History: Family History Problem Relation Age of Onset Cancer Mother pancreatic Hypertension Mother Stroke Maternal Grandfather Other (See Comment) Sister bronchiectasis, followed by a lung doctor in [place] Social History: History Social History Marital Status: [...] Topics Concern None Social History Narrative Lives: [place] With: his wifeGrew up: [facility] Has previously lived in: [place], [place] , [place] 6 months, he is going to his dye expert for evaluation. No history of eczema. Neurologic: [...] ena perkins is working (turnaround time at [facility] is 3-4 weeks with tests being sent to [facility] and to be read). If no significant [...] made to ensure accuracy; however, inadvertent computerized analog circuit designer errors may be pre sent. 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
--- OUTSIDE RECORDS SUMMARY | ~2020-03-10 | XMS | Encounter Summary ---
Demographics + + + | Address | [address] | | | [place] [address] | + + + | Home Phone [...] [place] | | | | | [address] | | + + + + + | Scot Damico | ECON | [address] | | | | | [place] [address] | | + + + + + Care Team Providers + +------+ + | Care Manager Endoscopy Name | Role | Phone | + [...] | | Shortness | [place], | [address] [place] | | | | | of breath | Irina B, | [place], | | | | | Procedures | MD [address] | [place] [address] | | | | | CT Chest wo | [address] | Phone: | | | | | Contrast | [place], | [phone] | | | | | | [place] [address] | Fax: | | | | | | | [phone] | +--------+--------+ + + + + Reason [...] | | Shortness | [place], | [address] [place] | | | | | of breath | Irina B, | [place], | | | | | Procedures | MD [address] | [place] [address] | | | | | CT Chest wo | [address] | Phone: | | | | | Contrast | [place], | [phone] | | | | | | [place] [address] | Fax: | | | | | | | [phone] | +--------+--------+ + + + + Encounter Details +--------+ + + + + | Date | Type | Department | Care Team | Description | +--------+ + + + + | 07/29/ | Hospital | [facility] | [place], | Shortness of breath | | 2013 | Encounter | MED CTR CT [address] | Irina B, MD | | | | | [place], | | | | | | [place] [address] | | | | | | [phone] | | | +--------+ + + + [...] | | | [place] [address] | | | | | | [phone] | | | | | | | [...] Dictated and Signed by: Steffen Story | Jez Arnold MD Electronically signed: 07/29/2014 1:50 PM [...] + | MISCELLANEOUS LAB | | | [phone] | + +---------+ + + | MISCELANIOUS LAB | | | [phone] | + +---------+ + + documented in this encounter Visit Diagnoses + + | Diagnosis | + + | Shortness of breath | + + documented in this encounter
--- OUTSIDE RECORDS SUMMARY | ~2020-03-10 | XMS | Encounter Summary ---
Demographics + + + | Address | [address] | | | [place] [address] | + + + | Home Phone [...] [place] | | | | | [address] | | + + + + + | Scot Damico | ECON | [address] | | | | | [place] [address] | | + + + + + Care Team Providers + +------+ + | Care Activity Therapist Name | Role | Phone | [...] | | | | | | [place] [address] | | | | | | [phone] | | | +--------+ + + + [...] D | | | | | | [place] [address] | | | | | | [phone] | | | | | | | | +--------+---------+ + + + documented as of this encounter Visit Diagnoses Not on filedocumented in this encounter"
--- OUTSIDE RECORDS SUMMARY | ~2020-03-10 | XMS | Encounter Summary ---
Demographics + + + | Address | [address] | | | [place] [address] | + + + | Home Phone | | + + + | Preferred Language | Unknown | + + + | Marital Status | | + + + | Alevism Affiliation | 1041 | + + + [...] [place] | | | | | [address] | | + + + + + | Scot Damico | ECON | [address] | | | | | [place] [address] | | + + + + + Care Team Providers + +------+ + | Care Filament Cutter Name | Role | Phone | + +------+ + PCP | Unavailable | + +------+ + Encounter Details +--------+ + + + + | Date | Type | Department | Care Team | Description | +--------+ + + + + | 11/05/ | Hospital | [facility] | | | [facility] | Encounter | MED CTR XRAY [address] | | | | | | [place] | | | | | | [place] [address] | | | | | | [phone] | | | +--------+ + + + [...] | | | [place] [address] | | | | | | [phone] | | | | | | | | +--------+---------+ + + + documented as of this encounter Visit Diagnoses Not on filedocumented in this encounter"
--- OUTSIDE RECORDS SUMMARY | ~2020-03-10 | XMS | Encounter Summary ---
Demographics + + + | Address | [address] | | | [place] [address] | + + + | Home Phone | | + + + | Preferred Language | Unknown | + + + | Marital Status | | + + + | Jehovah'S Witness Affiliation | 1041 | + + + | Race | Unknown | + + + | Ethnic Group | Unknown | + + + Author + + + | Author | [facility] | | | and [place] | + + + | Organization | [facility] | | | [...] [place] | | | | | [address] | | + + + + + | Scot Damico | ECON | [address] | | | | | [place] [address] | | + + + + + Care Team Providers + +------+ + | Care Direct Support Staff Name | Role | Phone | + [...] | LABORATORY [address] | [place] | | | | | [address] [place], [place] | [id number] | | | | | [address] | | | | | | [phone] | | | +--------+ + + + [...] D | | | | | | [place] [address] | | | | | | [phone] | | | | | | | [...] + + + | HEMATOPATHOLOGY REPORT | [facility] | | Date Taken: 03/21/2005 Date Received: [...] Morphology: - [address] | | | [place] [address] or | | | Testing performed at: [facility] | | | Laboratory Alberto Najera M.D., Director [address] | | | [address] [place] [address] | | + + + + + + + + | Performing | Address | City/State/Zipcode | Phone Number | | Organization | | | | + + + + + | [facility] | [address] | [place] [address] | | | [facility] | | | | | LABORATORY | | | | + + + + + | [place] [facility] | | | | + + + + + documented in this encounter Visit Diagnoses Not on filedocumented in this encounter"
--- OUTSIDE RECORDS SUMMARY | ~2020-03-10 | XMS | Encounter Summary ---
Demographics + + + | Address | [address] | | | [place] [address] | + + + | Home Phone | | + + + | Preferred Language | Unknown | + + + | Marital Status | | + + + | Scientologist Affiliation | 1041 | + + + | Race | Unknown | + + + | Ethnic Group | Unknown | + + + Author + + + | Author | [facility] | | | and [place] | + + + | Organization | [facility] | | [...] [place] | | | | | [address] | | + + + + + | Scot Damico | ECON | [address] | | | | | [place] [address] | | + + + + + Care Team Providers + +------+ + | Care Darkroom Worker Name | Role | Phone | + +------+ + | Ralph Chatman MD | PCP | | + +------+ + Encounter Details +--------+ + + + + | Date | Type | Department | Care Team | Description | +--------+ + + + + | 07/08/ | Hospital | [facility] | Kriss Ceballos, | | | 2012 - | Encounter | [facility] | [address] | | | | | CARDIAC TRANSPLANT | [place] [address] | | | 07/13/ | | [address] | [phone] | | | 2012 | | [place], [place] | | | | | | [address] | | | | | | [phone] | | | +--------+ + + + [...] 1935 ADMISSION DATE: 07/08/2013 DISCHARGE DATE: 07/13/2013 [id number] / [id number] Mr. Damico is a 78-year-old gentleman with [...] His wounds were healing DAMICOIRAIDA Trujillo ADM:07/08/13 [id number] 07/13/13 DIS IN DISCHARGE SUMMARY [id number] [facility] JOSÉ Knight [place] MD Theo Sow THIS REPORT IS CONFIDENTIAL AND NOT TO BE RELEASED WITHOUT PROPER AUTHORIZATION. [facility] without any signs of complications and he was instructed to follow up with Dr. Ceballos, as well as with his taxi truck driver in approximately one month in [place]. His taxi truck driver, Dr. Hughes, actually does go to [place] and they may see Dr. Hughes there. [...] He is also given a prescription for [place] 5 mg tablet every three hours p.r.n. pain, quant ity #60 with no refills. POONAM Chavez MD P P TV/lat #[id number] cc: MD Ralph Buchanan MD Torrey Vail, [facility] Kriss Ceballos MD Electronically Signed 07/24/13 0751 Kriss Ceballos MD IRAIDA DAMICO ADM:07/08/13 [id number] 07/13/13 DIS IN DISCHARGE SUMMARY [id number] [facility] Nirmal Vidal, [facility] Kriss Ceballos MD R THIS REPORT IS CONFIDENTIAL AND NOT TO BE RELEASED WITHOUT PROPER AUTHORIZATION.Electronica lly signed by LINO Knight at 07/24/2013 7:52 AM PDTdocumented in this encounter Progress Notes Corrie Mendez, TONGUE AND QUARTER STITCHER - 07/10/2013 11:11 AM PDT Diabetes Progress [...] NP 07/10/13 1115 LAWRENCE DAMICOERNE Cassandra ADM:07/08/13 [id number] ADM IN PROGRESS NOTE [id number] P [facility] Corrie Mendez NP E-Sign: [facility] THIS REPORT IS CONFIDENTIAL AND NOT TO [...] Mendez NP 07/09/13 1513 IRAIDA DAMICO ADM:07/08/13 [id number] ADM IN PROGRESS NOTE [id number] [facility] Corrie Mendez NP E-Sign: [facility] THIS REPORT IS CONFIDENTIAL AND NOT TO [...] D | | | | | | [facility] [place] [address] | | | | | | [phone] | | | | | | | [...] - 1.030 | [facility] | | | [place] | | | [facility] | | | [...] + + | [facility] | [address] | [place] [address] | | | [facility] | | | | | LABORATORY | | | | + + + + + XR Chest 2 VW (07/13/2013 9:44 AM PDT) + + | Specimen | + + | | + + + + + | Narrative | Performed At | + + + | Exam Performed Location: [facility] AND | MISCELANIOUS | | LATERAL CHEST [...] | No new infiltrates identified. S: SQ [id number]) Signed by: NAVID | | | MD CLEMENTINE | | + + + + + | Procedure Note | + + | Jorje, Rad Conversion - 07/29/2013 4:39 PM PDT Exam Performed Location: [facility] | | at [facility] AND LATERAL CHEST X-RAYCLINICAL INFORMATION:Post heart | [...] No new infiltrates | | identified.S: SQ ([id number]) Signed by: NAVID SPRING MD | |pericardial [...] | | | | | |S: SQ ([id number]) Signed by: NAVID SPRING MD | + + + +---------+ + + | Performing | Address | City/State/Zipcode | Phone Number | | Organization | | | | + +---------+ + + | MISCELLANEOUS LAB | | | [phone] | + +---------+ + + | MISCELANIOUS LAB | | | [phone] | + +---------+ + + CBC no [...] + | [facility] | [address] | [place] [address] | | | [facility] | | | [...] + | [facility] | [address] | [place] [address] | | | [facility] | [...] + + | Glucose | 123 (H)Comment: [place] Citizen | 65 - 99 mg/dL | [facility] [...] + + | [facility] | [address] | [place] [address] | | | [facility] | | | [...] + + | [facility] | [address] | [place] [address] | | | [facility] | | | | [...] + | [facility] | [address] | [place] [address] | | | [facility] | [...] + | [facility] | [address] | [place] [address] | | | [facility] | | | [...] + + | [facility] | [address] | [place] [address] | | | [facility] | | | | [...] + + | [facility] | [address] | [place] [address] | | | [facility] | [...] 27 | 21 - 28 mmol/L | [facility] | | | | | | [facility]CR[facility] | | | | | | HEART | | | | | | MEDICAL | | | | | | CENTER | | | | | | LABORATORY | | + + + + + + | Glucose | 150 (H)Comment: [place] Citizen | 65 - 99 mg/dL | [facility] | | | | Diabetes Association | [...] + | [facility] | [address] | [place] [address] | | | [facility] | [...] + | [facility] | [address] | [place] [address] | | | [facility] | | | | [...] [address] | [place] [address] | | | [facility] | | | | | [...] [address] | [place] [address] | | | [facility] | [...] + | [facility] | [address] | [place] [address] | | | [facility] | | | | [...] + + | [facility] | [address] | [place] [address] | | | [facility] | | | [...] | [address] | [place] [address] | | | [facility] | [...] + | [facility] | [address] | [place] [address] | | | [facility] | | | | [...] + + | [facility] | [address] | [place] [address] | | | [facility] | | | | [...] + + | Glucose | 142 (H)Comment: [place] Citizen | 65 - 99 mg/dL | [facility] | | | | Diabetes Association | [...] + | [facility] | [address] | [place] [address] | | | [facility] | [...] + | [facility] | [address] | [place] [address] | | | [facility] | | | | [...] + + | [facility] | [address] | [place] [address] | | | [facility] | | | | | LABORATORY | | | | + + + + + XR Chest PA or AP (07/09/2013 3:58 AM PDT) + + | Specimen | + + | | + + + + + | Narrative | Performed At | + + + | Exam Performed Location: [facility] CHEST | MISCELANIOUS | | RADIOGRAPH [...] basilar | | | atelectasis. S: SQ ([id number]) Signed by: | | | LANEY GARDNER MD | | + + + + + | Procedure Note | + + | Jorje, Rad Conversion - 07/29/2013 4:31 PM PDT Exam Performed Location: [facility] | | at [facility] CHEST RADIOGRAPHCLINICAL INFORMATION:Post open heart | | surgery.COMPARISON:Yesterday and priors.PROCEDURE:AP chest radiographFINDINGS:Interval | | extubation. Central line and mediastinal drains remain inplace. Mildly increased left | | basilar atelectasis. No largeeffusion or pneumothorax. Stable mild | | cardiomegaly.IMPRESSION:Interval extubation with mildly increased left basilar | | atelectasis.S: SQ ([id number]) Signed by: LANEY GARDNER MD | |COMPARISON: [...] | | | | | |S: SQ ([id number]) Signed by: LANEY GARDNER MD | + + + +---------+ + + | Performing | Address | City/State/Zipcode | Phone Number | | Organization | | | | + +---------+ + + | MISCELLANEOUS LAB | | | [phone] | + +---------+ + + | MISCELANIOUS LAB | | | [phone] | + +---------+ + + POC Glucose [...] + + | [facility] | [address] | [place] [address] | | | [facility] | | | | | [...] SACRED | [address] | [place] [address] | | | [facility] | [...] + | [facility] | [address] | [place] [address] | | | [facility] | | | | [...] + + | [facility] | [address] | [place] [address] | | | [facility] | | | | [...] | [address] | [place] [address] | | | [facility] | [...] | [address] | [place] [address] | | | [facility] | | | [...] + + | [facility] | [address] | [place] [address] | | | [facility] | | | | [...] + | [facility] | [address] | [place] [address] | | | [facility] | [...] SACRED | [address] | [place] [address] | | | [facility] | [...] + | [facility] | [address] | [place] [address] | | | [facility] | | | | [...] PSV P 5, PS 8 | | [facility] | | | Information | | | [...] + + | [facility] | [address] | [place] [address] | | | [facility] | | | [...] + + | [facility] | [address] | [place] [address] | | | [facility] | [...] + + | [facility] | [address] | [place] [address] | | | [facility] | | | | [...] + + | [facility] | [address] | [place] [address] | | | [facility] | | | [...] SACRED | [address] | [place] [address] | | | [facility] | | | [...] + | [facility] | [address] [place] [address]. | [place] [address] | | | [facility] | | | [...] + + | [facility] | [address] | [place] [address] | | | [facility] | | | | [...] + + | [facility] | [address] | [place] [address] | | | [facility] | | | | | LABORATORY | | | | + + + + + XR Chest PA or AP (07/08/2013 4:50 PM PDT) + + | Specimen | + + | | + + + + + | Narrative | Performed At | + + + | Exam Performed Location: [facility] [place] CHEST | MISCELANIOUS | | X-RAY PORTABLE [...] or abnormality. | | | S: SQ ([id number]) Signed by: FELI SIMMONS MD | | + + + + + | Procedure Note | + + | Jorje, Rad Conversion - 07/29/2013 4:29 PM PDT Exam Performed Location: [facility] | | at [facility] X-RAY PORTABLE SINGLE VIEWCLINICAL INFORMATION:Aortic valve | [...] inexpected location.No lung complications or abnormality.S: SQ ([id number]) Signed by: | | FELI SIMMONS MD [...] | | | | | |S: SQ ([id number]) Signed by: FELI SIMMONS MD | + + + +---------+ + + | Performing | Address | City/State/Zipcode | Phone Number | | Organization | | | | + +---------+ + + | MISCELLANEOUS LAB | | | [phone] | + +---------+ + + | MISCELANIOUS LAB | | | [phone] | + +---------+ + + Blood Gas [...] | HEART | | | | Dr. Caretr, [place] [address] | | MEDICAL | | [...] + + | [facility] | [address] | [place] [address] | | | [facility] | | | | [...] + + | [facility] | [address] | [place] [address] | | | [facility] | | | | | [...] + + | [facility] | [address] | [place] [address] | | | [facility] | | | | [...] + | [facility] | [address] | [place] [address] | | | [facility] | [...] + + | [facility] | [address] | [place] [address] | | | [facility] | | | | [...] + + | [facility] | [address] | [place] [address] | | | [facility] | | | | [...] + + | [facility] | [address] | [place] [address] | | | [facility] | [...] + | [facility] | [address] | [place] [address] | | | [facility] | | | | [...] + | [facility]Joan [facility] | [address] | [place] [address] | | | [facility] | | | | [...] + + | [facility] | [address] | [place] [address] | | | [facility] | [...] [address] | [place] [address] | | | [facility] | [...] + + | [facility] | [address] | [place] [address] | | | [facility] | | | | | LABORATORY | | | | + + + + + Surgical Pathology Exam (07/08/2013 12:00 AM PDT) + + | Specimen | + + | | + + + + + | Narrative | Performed At | + + + | SURGICAL PATHOLOGY REPORT | [facility] | | Date Taken: 07/08/2013 Date Received: | [facility] | | 07/08/2013 Completed: 07/10/2013 Physician: KRISS CEBALLOS Copy to: [facility] | | DIAGNOSIS: Aortic valve leaflets: - [...] | | | areas are identified. Random workforce services representative sections are placed | | | into "A1". (AK) MICROSCOPIC DESCRIPTION: Histologic sections | | | of all submitted blocks are examined by light microscopy. These | | | findings, together with the gross examination, support the pathologic | | | diagnosis. A: [id number], [id number] [facility] [address] [facility] | | | [place] [address] or | | | Testing performed at: [facility] | | | Laboratory Alberto Najera M.D., Director [facility] [address] | | | [address] [place] [address] | | + + + + + + + + | Performing | Address | City/State/Zipcode | Phone Number | | Organization | | | | + + + + + | [facility] | [address] | [place] [address] | | | [facility] | | | | | LABORATORY | | | | + + + + + documented in this encounter Visit Diagnoses Not on filedocumented in this encounter
--- OUTSIDE RECORDS SUMMARY | ~2020-03-10 | XMS | Encounter Summary ---
Demographics + + + | Address | [address] | | | [place] [address] | + + + | Home Phone [...] [place] | | | | | [address] | | + + + + + | Scot Damico | ECON | [address] | | | | | [place] [address] | | + + + + + Care Team Providers + +------+ + | Care Network Field Engineer Name | Role | Phone | [...] + | 02/03/ | Office | [facility] | Offenstein, | PANCHITO (obstructive | | 2014 | Visit | PULMONARY [address] | Irina Sofia MD | sleep apnea) | | | | Ellis Nuñez, | | (Primary Dx); COPD | | | | [place] [address] | | (chronic obstructive | | | | [phone] | | pulmonary disease) | | | [...] Laterality: N/A; Surgeon: Theo Garza MD; Location: [facility] Social History: History Social History Marital [...] Narrative Lives: [place] With: his Grew up: [facility] Has previously lived in: [place], [place], born in [place] Exposure to toxic chemicals: possibly as a [...] morning (before breakfast ). Respiratory Therapy Supplies [facility] Res Med S9 auto CPAP 9 cm [...] normal CPAP Data: Dates: 01/18/15- Machine type: [employer]: [facility] CPAP Pressure: [...] made to ensure accuracy; however, inadvertent computerized supervisor electronics processing errors may be pre sent. documented in [...] D | | | | | | [place] [address] | | | | | | [phone] | | | | | | | [...]
--- OUTSIDE RECORDS SUMMARY | ~2020-03-10 | XMS | Encounter Summary ---
Demographics + + + | Address | [address] | | | [place] [address] | + + + | Home Phone | | + + + | Preferred Language | Unknown | + + + | Marital Status | Single | + + + | Rastafarian Affiliation | CAT | + + + [...] Team Providers + +------+ + | Care Pr Manager Name | Role | Phone | [...] W | | | | ON | [facility] 4th Floor [address] | [facility] | | | | | [address] | Road [place], [place] | | | | | Mailcode: [facility] | [address] | | | | | [facility] | | | | | | and Healing, | | | | | | Building 1,4th Floor | | | | | | [place], [place] | | | | | | [address] | | | | | | [phone] | | | +--------+ + + + [...]
--- OUTSIDE RECORDS SUMMARY | ~2020-03-10 | XMS | Encounter Summary ---
Demographics + + + | Address | [address] | | | [place] [address] | + + + | Home Phone [...] Author + + + | Author | [facility] | + + + | Organization | [facility] | + + + | Address | Unknown | + + + | Phone | Unavailable | + + + Support + + +---------+ + | Name | Relationship | Address | Phone | + + +---------+ + | Elizabeth Damico | ECON | Unknown | | + + +---------+ + Care Team Providers + +------+ + | Care Light Rail Vehicle Operator Name | Role | Phone | [...] [id number] | | | | | | [place] for [facility] | | | | | | and Healing, | | | | | | [facility], [facility] | | | | | | [place], [place] | | | | | | [address] | | | | | | [phone] | | | +--------+ + + + [...] + documented in this encounter Results DERMATOPATHOLOGY([facility]) (12/08/2012) + + + + + + [...] Damico | | | | | | Holcomb:A: Specimen is | | | | | | labeled "scalp" and | | | | | | consists of an irregular | | | | | | shave oftan-white skin, | | | | | | [id number]. The surgical | | | | | [...] MELVIN | [address] | [place] [address] | | | DERMATOPATHOLOGY | [address] | | | + + + + + documented in this encounter Visit Diagnoses Not on filedocumented in this encounter
--- OUTSIDE RECORDS SUMMARY | ~2020-03-10 | XMS | Encounter Summary ---
Demographics + + + | Address | [address] | | | [place] [address] | + + + | Home Phone [...] [place] | | | | | [address] | | + + + + + | Scot Damico | ECON | [address] | | | | | [place] [address] | | + + + + + Care Team Providers + +------+ + | Care Sole Skiver Name | Role | Phone | + [...] | | | | | | [place] [address] | | | | | | [phone] | | | +--------+ + + + [...] | | | [place] [address] | | | | | | [phone] | | | | | | | [...]
--- OUTSIDE RECORDS SUMMARY | ~2020-03-10 | XMS | Encounter Summary ---
Demographics + + + | Address | [address] | | | [place] [address] | + + + | Home Phone [...] Author + + + | Author | [facility] | + + + | Organization | [facility] | + + + | Address | Unknown | + + + | Phone | Unavailable | + + + Support + + +---------+ + | Name | Relationship | Address | Phone | + + +---------+ + | Elizabeth Damico | ECON | Unknown | | + + +---------+ + Care Team Providers + +------+ + | Care Founder And Chief Executive Officer Name | Role | Phone | [...] | | | | | [place], | | | | | | [place] [address] | | | +--------+ + + + [...] | + + | 11/26/2003 10:18 AM [facility] Anesthesia PostOp Report | | | | Patient: GERTRUDIS DAMICOSARBJIT [facility] Rec: [id number] Sex M Bdate: 1935 | | Date/Time Data | | Entered Into [facility] | | Anesth PostOp | | Surgery Date [id number] 11/26/03 10:18 | | Anesthesiologist NATHAN DIETRICH [...]
--- OUTSIDE RECORDS SUMMARY | ~2020-03-10 | XMS | Encounter Summary ---
Demographics + + + | Address | [address] | | | [place] [address] | + + + | Home Phone | | + + + | Preferred Language | Unknown | + + + | Marital Status | | + + + | Presybeterian Affiliation | 1041 | + + + | Race | Unknown | + + + | Ethnic Group | Unknown | + + + Author + + + | Author | [facility] | | | and [place] | + + + | Organization | [facility] | | | [...] [place] | | | | | [address] | | + + + + + | Scot Damico | ECON | [address] | | | | | [place] [address] | | + + + + + Care Team Providers + +------+ + | Care Senior Consulting Manager Name | Role | Phone | + +------+ + PCP | Unavailable | + +------+ + Encounter Details +--------+ + + + + | Date | Type | Department | Care Team | Description | +--------+ + + + + | 11/21/ | Hospital | DIN[facility]an ALAN | Zeferino Reeves, | | | 2009 | Encounter | FAMILY GENERIC | [address] | | | | | CONVERSION | [address] | | | | | DEPARTMENT [address] | [place] [address] | | | | | [address] | [phone] | | | | | [place], [place] | | | | | | [address] | | | | | | [phone] | | | +--------+ + + + [...] | | | [place] [address] | | | | | | [phone] | | | | | | | [...] + + + | Exam Performed Location: [facility] | MISCELANIOUS | | RADIOGRAPHS OF THE [...] 07/31/2013 8:51 PM PDT Exam Performed Location: [facility] CHESTCLINICAL INFORMATION:Pre operative for | [...] + | MISCELLANEOUS LAB | | | [phone] | + +---------+ + + | M[facility]ELANIS[facility]WNA LAB | | | [phone] | + +---------+ + + documented in this encounter Visit Diagnoses Not on filedocumented in this encounter"
--- OUTSIDE RECORDS SUMMARY | ~2020-03-10 | XMS | Encounter Summary ---
Demographics + + + | Address | [address] | | | [place] [address] | + + + | Home Phone [...] + + + + | Jadyn F Daimco | ECON | [address] | | | | | [place] | | | | | [address] | | + + + + + | Scot Damico | ECON | [address] | | | | | [place] [address] | | + + + + + Care Team Providers + +------+ + | Care Power System Engineer Name | Role | Phone | + +------+ + PCP | Unavailable | + +------+ + Encounter Details +--------+ + + + + | Date | Type | Department | Care Team | Description | +--------+ + + + + | 04/20/ | Hospital | [facility] | | | | 2007 | Encounter | MED CTR XRAY [address] | | | | | | [place] | | | | | | [place] [address] | | | | | | [phone] | | | +--------+ + + + [...] | | | [place] [address] | | | | | | [phone] | | | | | | | | +--------+---------+ + + + documented as of this encounter Visit Diagnoses Not on filedocumented in this encounter"
--- OUTSIDE RECORDS SUMMARY | ~2020-03-10 | XMS | Encounter Summary ---
Demographics + + + | Address | [address] | | | [place] [address] | + + + | Home Phone [...] [place] | | | | | [address] | | + + + + + | Scot Damico | ECON | [address] | | | | | [place] [address] | | + + + + + Care Team Providers + +------+ + | Care Sheep Rancher Name | Role | Phone | + [...] | | Shortness | [place], | [address] | | | | | of breath | Irina B, | [place], | | | | | Procedures | MD [address] | [place] [address] | | | | | CT Chest wo | [address] | Phone: | | | | | Contrast | [place], | [phone] | | | | | | [place] [address] | Fax: | | | | | | | [phone] | +--------+--------+ + + + + Reason [...] | | Shortness | [place], | [address] | | | | | of breath | Irina B, | [place], | | | | | Procedures | MD [address] | [place] [address] | | | | | CT Chest wo | [address] | Phone: | | | | | Contrast | [place], | [phone] | | | | | | [place] [address] | Fax: | | | | | | | [phone] | +--------+--------+ + + + + Encounter Details +--------+ + + + + | Date | Type | Department | Care Team | Description | +--------+ + + + + | 07/29/ | Hospital | [facility] | [place], | Shortness of breath | | 2013 | Encounter | MED CTR [address] | Irina B, MD | | | | | [place], | | | | | | [place] [address] | | | | | | [phone] | | | +--------+ + + + [...] | | | [place] [address] | | | | | | [phone] | | | | | | | [...] + | MISCELLANEOUS LAB | | | [phone] | + +---------+ + + | MISCELANIOUS LAB | | | [phone] | + +---------+ + + documented in this encounter Visit Diagnoses + + | Diagnosis | + + | Shortness of breath | + + documented in this encounter
--- OUTSIDE RECORDS SUMMARY | ~2020-03-10 | XMS | Encounter Summary ---
Demographics + + + | Address | [address] | | | [place] [address] | + + + | Home Phone [...] [place] | | | | | [address] | | + + + + + | Scot Damico | ECON | [address] | | | | | [place] [address] | | + + + + + Care Team Providers + +------+ + | Care Airport Driver Name | Role | Phone | + +------+ + | Ralph Chatman MD | PCP | | + +------+ + Encounter Details +--------+ + + + + | Date | Type | Department | Care Team | Description | +--------+ + + + + | 07/06/ | Hospital | [facility] | Mio Hughes S, | | | 2012 | Encounter | MED CTR CARDIAC | MD [address] | | | | | ADMIT AND RECOVERY | [address] [place] | | | | | [address] | [address] | | | | | [place] | | | | | | [address] | | | | | | [phone] | | | +--------+ + + + [...] D | | | | | | [place] [address] | | | | | | [phone] | | | | | | | [...] | | MEDICAL | | | | [email or web address] | | CENTER | | | | [...] [facility] | [address] | [place] [address] | | | HEART [facility] | | | | | LABORATORY [...] + + + | Glucose | 99Comment: English | 65 - 99 mg/dL | [facility] [...] + | [facility] | [address] | [place] [address] | | | [facility] | | | | | LABORATORY | | | | + + + + + CBC with Differential (07/06/2013 12:35 PM PDT) + + + + + + | Component | Value | Ref Range | Performed | Pathologist | | | | | At | Signature | + + + + + + | WBC | 4.7 | 3.8 - 11.0 K/uL | [facility] | | | | | | [facility] | | | | | | HEART | | | | | | MEDICAL | | | | | | CENTER | | | | | | LABORATORY | | + + + + + + | RBC | 4.46 | 4.20 - 5.70 | [...] + + | [facility] | [address] | [place] [address] | | | [facility] | | | | | LABORATORY | | | | + + + + + documented in this encounter Visit Diagnoses Not on filedocumented in this encounter
--- OUTSIDE RECORDS SUMMARY | ~2020-03-10 | XMS | Encounter Summary ---
Demographics + + + | Address | [address] | | | [place] [address] | + + + | Home Phone [...] Team Providers + +------+ + | Care Faculty I On Call Medical Assistant Name | Role | Phone | [...] as of this encounter Discharge Summaries Interface, Trailer Park Manager In - 2005 6:08 PM PDTAdmission Date: 11/24/2003 Discharge Date: 12/01/2003 ATTENDING PHYSICIAN: Maria C Vences M.D. PRINCIPAL FINAL DIAGNOSIS: L3-4 epidural abscess/inflammatory tissue. ADDITIONAL DIAGNOSIS: 1. Anemia. 2. E Faecalis positive blood cultures from [facility]. PRINCIPAL PROCEDURE: L3 through 4 total laminectomy. Bilateral L3 to L4 and L4 to L5 foraminotomies. ADDITIONAL PROCEDURES: 1. November 27, 2003, PICC line placement. 2. Infectious disease consult. 3. Physical therapy/occupational therapy. 4. Postoperative x-ray November 28, 2003. HISTORY OF PRESENT ILLNESS: This is a 69-year-old man who presented to [facility] after several days of fevers and excruciating [...] signs of radicular pain. At [facility], blood was drawn on November 22, which grew E fecalis. His white count was 30,000. Hematocrit started at 34 and drifted down into the high 20s by the time of discharge from [facility], with iron level, and high reticulocyte count. MRI of the lumbar spine showed a large epidural abscess from L2 to S1. At this point, the decision was made to transfer this patient to [facility] for surgery with Maria C Vences M.D. [...] culture for E fecalis at [facility], infectious disease recommended colonoscopy as [...] was quite painful. They recommended transfer to [facility] facility for further mobilization. The patient was [...] primary care provider, Arturo Marcum, phone number [phone] and fax number [phone]. Tabby Mcnulty M.D. Maria C Vences M.D. Attending Physician KD:[email or web address] D: 11-30-2003 T: 11-30-2003 C: 12/02/2003 cr PLEASE FAX: [phone] signed by Interface, Trailer Park Manager In at 2005 6:08 PM PDTdocumented in this encounter Plan of Treatment Not on filedocumented as of this encounter Visit Diagnoses Not on filedocumented in this encounter"
--- OUTSIDE RECORDS SUMMARY | ~2020-03-10 | XMS | Encounter Summary ---
Demographics + + + | Address | [address] | | | [place] [address] | + + + | Home Phone [...] [place] | | | | | [address] | | + + + + + | Scot Damico | ECON | [address] | | | | | [place] [address] | | + + + + + Care Team Providers + +------+ + | Care Fork Assembler Name | Role | Phone | [...] [facility] | [address] [place], [place] | Dx) | | | [address] | [address] | | | | | [place], [place] | | | | | | [address] | | | | | | [phone] | | | +--------+---------+ + + + [...] might be different f rom the original. [facility] CARDIACTHORACIC SURGERY OUTPATIENT POST-OP VISIT Pt. Name/Age/: Iraida Damico 78 y.o. 1935 Med. Record Number: [id number] Date of Service: 08/20/2013 Procedure: Aortic Valve [...] 08/20/2013 13:00 Marylin Munoz PA-c Cardiothoracic Surgery [facility] [address] [place] [address] documented in this encounter Plan of Treatment +--------+---------+ + + + | Date | Type | Specialty | Care Team | Description | +--------+---------+ + + + | 05/02/ | Office | Neurology | Dada Goodwin, | | | 2019 | Visit | | MD Gabriel [address] | | | | | | [address] | | | | | | [place] [address] | | | | | | [phone] | | | | | | | | +--------+---------+ + + + documented as of this encounter Visit Diagnoses + + | Diagnosis | + + | S/P aortic valve replacement - Primary Heart valve replaced by other means | + + documented in this encounter"
--- OUTSIDE RECORDS SUMMARY | ~2020-03-10 | XMS | Encounter Summary ---
Demographics + + + | Address | [address] | | | [place] [address] | + + + | Home Phone | | + + + | Preferred Language | Unknown | + + + | Marital Status | | + + + | Episcopalian Affiliation | 1041 | + + + | Race | Unknown | + + + | Ethnic Group | Unknown | + + + Author + + + | Author | [facility] | | | and [place] | + + + | Organization | [facility] | | | and [...] [place] | | | | | [address] | | + + + + + | Scot Damico | ECON | [address] | | | | | [place] [address] | | + + + + + Care Team Providers + +------+ + | Care Dry Talc Racker Name | Role | Phone | + [...] MD | Dx) | | | | [place], | | | | | | [place] [address] | | | | | | [phone] | | | +--------+ + + + [...] | | | [place] [address] | | | | | | [phone] | | | | | | | [...]
--- OUTSIDE RECORDS SUMMARY | ~2020-03-10 | XMS | Encounter Summary ---
Demographics + + + | Address | [address] | | | [place] [address] | + + + | Home Phone | | + + + | Preferred Language | Unknown | + + + | Marital Status | | + + + | Nondenominational Affiliation | 1041 | + + + | Race | Unknown | + + + | Ethnic Group | Unknown | + + + Author + + + | Author | [facility] | | | and [place] | + + + | Organization | [facility] | | [...] [place] | | | | | [address] | | + + + + + | Scot Damico | ECON | [address] | | | | | [place] [address] | | + + + + + Care Team Providers + +------+ + | Care Ex Chef Name | Role | Phone | + [...] | | | | | | [place] [address] | | | | | | [phone] | | | +--------+ + + + [...] | | | [place] [address] | | | | | | [phone] | | | | | | | [...]
--- OUTSIDE RECORDS SUMMARY | ~2020-03-10 | XMS | Encounter Summary ---
Demographics + + + | Address | [address] | | | [place] [address] | + + + | Home Phone [...] [place] | | | | | [address] | | + + + + + | Scot Damico | ECON | [address] | | | | | [place] [address] | | + + + + + Care Team Providers + +------+ + | Care Director Critical Care Name | Role | Phone | + +------+ + PCP | Unavailable | + +------+ + Encounter Details +--------+ + + + + | Date | Type | Department | Care Team | Description | +--------+ + + + + | 07/06/ | [facility] | [facility] | [facility] | Encounter | MED CTR XRAY [address] | | | | | | [place] | | | | | | [place] [address] | | | | | | [phone] | | | +--------+ + + + [...] | | | [place] [address] | | | | | | [phone] | | | | | | | | +--------+---------+ + + + documented as of this encounter Visit Diagnoses Not on filedocumented in this encounter"
--- OUTSIDE RECORDS SUMMARY | ~2020-03-10 | XMS | Encounter Summary ---
Demographics + + + | Address | [address] | | | [place] [address] | + + + | Home Phone [...] [place] | | | | | [address] | | + + + + + | Scot Damico | ECON | [address] | | | | | [place] [address] | | + + + + + Care Team Providers + +------+ + | Care Paring Machine Operator Name | Role | Phone [...] RN | obstructive | | | | [place], | | pulmonary disease) | | | | [place] [address] | | ([facility]) | | | | [phone] | | | +--------+ + + + [...] | | | [place] [address] | | | | | | [phone] | | | | | | | | +--------+---------+ + + + documented as of this encounter Visit Diagnoses + + | Diagnosis | + + | COPD (chronic obstructive pulmonary disease) (HCC) Chronic airway obstruction, not | | elsewhere classified | + + documented in this encounter"
--- OUTSIDE RECORDS SUMMARY | ~2020-03-10 | XMS | Encounter Summary ---
Demographics + + + | Address | [address] | | | [place] [address] | + + + | Home Phone | | + + + | Preferred Language | Unknown | + + + | Marital Status | | + + + | Hinduism Affiliation | 1041 | + + + [...] [place] | | | | | [address] | | + + + + + | Scot Damico | ECON | [address] | | | | | [place] [address] | | + + + + + Care Team Providers + +------+ + | Care Security Dispatcher Name | Role | Phone | + [...] | | | | valve | [address] | | | | | | disorders | [place] | | | | | | Procedures | [address] | | | | | | ECHO | Phone: | | | | | | Transesophag | [phone] | | | | | | eal [...] | MED CTR CARDIAC | [address] [place] [address], | disorders | | | | ADMIT AND RECOVERY | [place] [address] | | | | | [address] | [phone] | | | | | [place] | | | | | | [address] | | | | | | [phone] | | | +--------+ + + + [...] D | | | | | | [place] [address] | | | | | | [phone] | | | | | | | [...] DAMICO Date: 03/30/2014 MRN: | | | [id number] Patient [facility]: [facility] [place] | | | : 1935 Age: 78 [...] then | | | administered by the entry level staff accountant under my direction. Standard endoscopy | | | support was offered with nasal oxygen, pulse oximetry, BP monitoring, | | | and continuous rhythm strip monitoring. The transesophageal echo | | | probe was placed without difficulty into the esophagus and a 2D/color | | | Doppler LFORENTIN exam was carried out. Left Ventricle: The [...] Ordering Physician: Theo HORAN | | | Mine Car Dispatcher: Theo Horan [place] [id number]: | | + + + + + | Procedure Note | + + | Jorje, Rad Results In - 03/30/2014 5:11 PM PDT | | Transesophageal | | Echo Report | | | | Name: IRAIDA DAMICO Date: 03/30/2014 | | Patient [facility] [place] | | : 1935 Age: 78 yrs [...] conscious sedation was then administered by the entry level staff accountant under my | | direction. Standard endoscopy [...] | Ordering Physician: Theo HORAN | | Mine Car Dispatcher: Theo Horan MD | | [id number]: | + + + +---------+ + + | Performing | Address | City/State/Zipcode | Phone Number | | Organization | | | | + +---------+ + + | MISCELLANEOUS LAB | | | [phone] | + +---------+ + + | MISCELANIOUS LAB | | | [phone] | + +---------+ + + documented in [...]
--- OUTSIDE RECORDS SUMMARY | ~2020-03-10 | XMS | Encounter Summary ---
Demographics + + + | Address | [address] | | | [place] [address] | + + + | Home Phone [...] [place] | | | | | [address] | | + + + + + | Scot Damico | ECON | [address] | | | | | [place] [address] | | + + + + + Care Team Providers + +------+ + | Care Endoscopy Tech Name | Role | Phone | + [...] | | | | PACE/REC,W/O | | [address] Phone: | | | | | INDUCT | | [phone] | +--------+--------+ + + + + Encounter [...] [address] | [place] [address] | HOUSE | | | | [place] | [phone] | | | | | [address] | | | | | | [phone] | | | +--------+---------+ + + + [...] - 01/20/2016 9:20 AM PDT DISCHARGE [facility] PATIENT NAME/: Iraida Damico, (1935) DATE OF [...] Medtronic pacemaker, model number A2DR01, serial number [id number]. The device looks great at discharge. He [...] syncope. POSTOPERATIVE DIAGNOSIS: Electrophysiology study for syncope. PRINT FINISHING WORKER: Jude Agrawal MD PROCEDURE: The patient presents [...] AV block that is no t reversible. PRINT FINISHING WORKER: Jude Agrawal MD. PROCEDURE: The patient presents with symptomatic bradyarrhythmias from intermittent hig h-degree AV block.Medtronic pacemaker, model number A2DR01, serial number [id number]. Device is seen to sense and pace [...] minutes Thank you for allowing [facility] to be involved in the care of [...] Black or tarry stools Any unusual bleeding [id number], [place] [address]. All rights reserve d. This information is [...] | | | [place] [address] | | | | | | [phone] | | | | | | | [...] | 12:06 PM | | | | ([id number]) | | PDT | | | + [...] | [facility] | | | | at [facility] | | [facility] | | | [facility], | | HEART | | | | [address] [place] [address] | | MEDICAL | | | | [address] | | CENTER | | | | | | LABORATORY | | + + + + + + + + | Specimen | + + | | + + + + + + + | Performing | Address | City/State/Zipcode | Phone Number | | Organization | | | | + + + + + | [facility] | [address] | [place] [address] | | | [facility] | | [...] [address] | [place] [address] | | | [facility]ART [facility] | | | | | [...] + + | Glucose | 103 (H)Comment: Monegasque | 65 - 99 mg/dL | [facility] [...] at | | | | | | [place] | | | | | | [facility], [address] | | | | | | [place] [address] | | | | + + + + + + + + | Specimen | + + | Blood specimen | | (specimen) | + + + + + + + | Performing | Address | City/State/Zipcode | Phone Number | | Organization | | | | + + + + + | [facility] | [address] | [place] [address] | | | [facility] | | [...] 30 mLs | | | | [facility] 01/19/16 at 1240 | | 16 12:40 [...] 1:04 | | | | | [facility] 01/19/16 at 1219 | | PM PDT [...] 10:05 | | | | | Intravenous, [facility], Starting | | AM PDT | | | | | 01/18/16 at 0920, For 1 dose, | | | | | | | Pre-op | | | | | | + +---------+ +---+ +---+ +---+---+ | | | +---+---+ documented in this encounter
--- OUTSIDE RECORDS SUMMARY | ~2020-03-10 | XMS | Encounter Summary ---
Demographics + + + | Address | [address] | | | [place] [address] | + + + | Home Phone | | + + + | Preferred Language | Unknown | + + + | Marital Status | | + + + | Anglican Affiliation | 1041 | + + + | Race | Unknown | + + + | Ethnic Group | Unknown | + + + Author + + + | Author | [facility] | | | and [place] | + + + | Organization | [facility] | | [...] [place] | | | | | [address] | | + + + + + | Scot Damico | ECON | [address] | | | | | [place] [address] | | + + + + + Care Team Providers + +------+ + | Care Grades 9 Through 12 Teacher Name | Role | Phone | [...] | | | | | | [place] [address] | | | | | | [phone] | | | +--------+ + + + [...] x 3 COPD (chronic obstructive pulmonary disease) ([facility]) PANCHITO (obstructive sleep apnea) 09/2014 mild AHI [...] Objective CPAP Data: Dates: 01/22/15-02/21/15 Machine type: [employer] [facility]: [facility] CPAP Pressure: 9 cmH2O Maximum Pressure: 9 [...] D | | | | | | [place] [address] | | | | | | [phone] | | | | | | | | +--------+---------+ + + + documented as of this encounter Visit Diagnoses Not on filedocumented in this encounter"
--- OUTSIDE RECORDS SUMMARY | ~2020-03-10 | XMS | Encounter Summary ---
Demographics + + + | Address | [address] | | | [place] [address] | + + + | Home Phone | | + + + | Preferred Language | Unknown | + + + | Marital Status | | + + + | Restoration Affiliation | 1041 | + + + [...] [place] | | | | | [address] | | + + + + + | Scot Damico | ECON | [address] | | | | | [place] [address] | | + + + + + Care Team Providers + +------+ + | Care Port Cdl A Driver Name | Role | Phone | + +------+ + | Ralph Chatman MD | PCP | | + +------+ + Reason for Visit +---------+ + | Reason | Comments | +---------+ + | Results | [facility] 05/20/14 results | +---------+ + Encounter Details +--------+ + + + + | Date | Type | Department | Care Team | Description | +--------+ + + + + | 07/30/ | Telephone | [facility] [place] | [place], | Results ([facility] | | 2013 | | PULMONARY [address] | Irina Sofia MD | 05/20/14 results) | | | | [place], | | | | | | [place] [address] | | | | | | [phone] | | | +--------+ + + + [...] | | | [place] [address] | | | | | | [phone] | | | | | | | | +--------+---------+ + + + documented as of this encounter Visit Diagnoses Not on filedocumented in this encounter"
--- OUTSIDE RECORDS SUMMARY | ~2020-03-10 | XMS | Encounter Summary ---
Demographics + + + | Address | [address] | | | [place] [address] | + + + | Home Phone [...] [place] | | | | | [address] | | + + + + + | Scot Damico | ECON | [address] | | | | | [place] [address] | | + + + + + Care Team Providers + +------+ + | Care Revising Clerk Name | Role | Phone | [...] | | [facility] | WET MIXER | regurgitation | | | | [facility] | | (Primary Dx); | | | [address] | | Hypertension; | | | | [place] | | Degenerative joint | | | | [address] | | disease; Epidural | | | | [phone] | | abscess | +--------+ + + [...] D | | | | | | [place] [address] | | | | | | [phone] | | | | | | | [...]
--- OUTSIDE RECORDS SUMMARY | ~2020-03-10 | XMS | Encounter Summary ---
Demographics + + + | Address | [address] | | | [place] [address] | + + + | Home Phone | | + + + | Preferred Language | Unknown | + + + | Marital Status | | + + + | Judaism Affiliation | 1041 | + + + | Race | Unknown | + + + | Ethnic Group | Unknown | + + + Author + + + | Author | [facility] | | | and [place] | + + + | Organization | [facility] | | | [...] [place] | | | | | [address] | | + + + + + | Scot Damico | ECON | [address] | | | | | [place] [address] | | + + + + + Care Team Providers + +------+ + | Care Back End Architect Name | Role | Phone | + +------+ + | Ralph Chatman MD | PCP | | + +------+ + Reason for Visit +--------+ + | Reason | Comments | +--------+ + | Other | vascular study | +--------+ + Encounter Details +--------+ + + + + | Date | Type | Department | Care Team | Description | +--------+ + + + + | 04/22/ | Telephone | [facility] [place] | [place], | Other (vascular | | 2015 | | PULMONARY [address] | Irina Sofia MD | study) | | | | [place], | | | | | | [place] [address] | | | | | | [phone] | | | +--------+ + + + [...] 2019 | Visit | | MD [address] | | | | | | [place] [address] | | | | | | [phone] | | | | | | | | +--------+---------+ + + + documented as of this encounter Visit Diagnoses Not on filedocumented in this encounter"
--- OUTSIDE RECORDS SUMMARY | ~2020-03-10 | XMS | Encounter Summary ---
Demographics + + + | Address | [address] | | | [place] [address] | + + + | Home Phone [...] [address] | | | | | [place] | | | | | [address] | | + + + + + | Scot Damico | ECON | [address] | | | | | [place] [address] | | + + + + + Care Team Providers + +------+ + | Care Circuit Judge Name | Role | Phone | + [...] RN | obstructive | | | | [place], | | pulmonary disease) | | | | [place] [address] | | ([facility]) | | | | [phone] | | | +--------+ + + + [...] | | | [place] [address] | | | | | | [phone] | | | | | | | | +--------+---------+ + + + documented as of this encounter Visit Diagnoses + + | Diagnosis | + + | COPD (chronic obstructive pulmonary disease) (HCC) Chronic airway obstruction, not | | elsewhere classified | + + documented in this encounter"
--- OUTSIDE RECORDS SUMMARY | ~2020-03-10 | XMS | Encounter Summary ---
Demographics + + + | Address | [address] | | | [place] [address] | + + + | Home Phone | | + + + | Preferred Language | Unknown | + + + | Marital Status | Single | + + + | Restorationism Affiliation | CAT | + + + [...] Providers + +------+ + | Care County Home Demonstration Agent Name | Role | Phone | + +------+ + PCP | Unavailable | + +------+ + Encounter Details +--------+ + + + + | Date | Type | Department | Care Team | Description | +--------+ + + + + | 11/25/ | Results | | Other, Faculty | | | 2003 | Only | | [phone] | | +--------+ + + + + [...] DEPARTMENT OF | [address] | [place] [address] | | | PATHOLOGY | [address] | | | + + + + + | [facility] DEPARTMENT OF | [address] | [place] [address] | | | PATHOLOGY | [address] [...] | + + + + + | [facility] | [address] | [place] [address] | | | PATHOLOGY | [address] | | | + + + + + | [facility] | [address] | [place] [address] | | | PATHOLOGY | [address] [...] + + + | [facility] | [address] | [place] [address] | | | LAB-MICRO | | | [...] + + + | [facility] | [address] | [place] [address] | | | LAB-MICRO | | | | + + + + + documented in this encounter Visit Diagnoses Not on filedocumented in this encounter"
--- OUTSIDE RECORDS SUMMARY | ~2020-03-10 | XMS | Encounter Summary ---
Demographics + + + | Address | [address] | | | [place] [address] | + + + | Home Phone [...] [place] | | | | | [address] | | + + + + + | Scot Damico | ECON | [address] | | | | | [place] [address] | | + + + + + Care Team Providers + +------+ + | Care Ground Operations Crew Member Name | Role | Phone | [...] | 02/03/ | Office | [facility] | [place], | PANCHITO (obstructive | | 2014 | Visit | PULMONARY [address] | Irina Sofia MD | sleep apnea) | | | | [place], | | (Primary Dx); COPD | | | | [place] [address] | | (chronic obstructive | | | | [phone] | | pulmonary disease) | | | [...] Laterality: N/A; Surgeon: Theo Garza MD; Location: [facility] Social History: History Social History Marital [...] Narrative Lives: [place] With: his Grew up: [facility] Has previously lived in: [place], [place], born in [place] Exposure to toxic chemicals: possibly as a [...] normal CPAP Data: Dates: 01/18/15- Machine type: [facility] [employer]: In Home Medical CPAP Pressure: [...] made to ensure accuracy; however, inadvertent computerized plumbing service technician errors may be pre sent. documented in [...] D | | | | | | [place] [address] | | | | | | [phone] | | | | | | | [...]
--- OUTSIDE RECORDS SUMMARY | ~2020-03-10 | XMS | Encounter Summary ---
Demographics + + + | Address | [address] | | | [place] [address] | + + + | Home Phone | | + + + | Preferred Language | Unknown | + + + | Marital Status | | + + + | Uatsdin Affiliation | 1041 | + + + | Race | Unknown | + + + | Ethnic Group | Unknown | + + + Author + + + | Author | [facility] | | | and [place] | + + + | Organization | [facility] | | | [...] [place] | | | | | [address] | | + + + + + | Scot Damico | ECON | [address] | | | | | [place] [address] | | + + + + + Care Team Providers + +------+ + | Care Hair Spinning Machine Operator Name | Role | Phone | + +------+ + PCP | Unavailable | + +------+ + Encounter Details +--------+ + + + + | Date | Type | Department | Care Team | Description | +--------+ + + + + | 11/05/ | [facility] | [facility] | En[facility] | MED CTR XRAY [address] | | | | | | [place] | | | | | | [place] [address] | | | | | | [phone] | | | +--------+ + + + [...] | | | [place] [address] | | | | | | [phone] | | | | | | | | +--------+---------+ + + + documented as of this encounter Visit Diagnoses Not on filedocumented in this encounter"
--- OUTSIDE RECORDS SUMMARY | ~2020-03-10 | XMS | Encounter Summary ---
Demographics + + + | Address | [address] | | | [place] [address] | + + + | Home Phone [...] Team Providers + +------+ + | Care Professor Of Surgery Name | Role | Phone | + [...] | Transcriptions | + + | Interface, Technology Infusion Specialist In - 09/26/2005 6:19 AM PST Date: | | 11/25/2003Attending Surgeon: Maria C Vences M.D.Furnace Mechanic(s): | | Mc Arnold M.D.Preoperative Diagnosis:L3-L4 epidural [...] midline skin incision was done from the H3gbzlsyd process to L5 spinous process and then [...] M.D.Maria C Vences, | | PIPE / [id number] / [id number] / [id number] / [id number]: 11/25/2003T: 11/26/2003 | | | |Indications: | [...] | | | | | | | |Marai C Vences M.D. | | | |AD / HS | |[id number] / [id number] / [id number] / [id number] | | | | | + + documented in this encounter Visit Diagnoses Not on filedocumented in this encounter"
--- OUTSIDE RECORDS SUMMARY | ~2020-03-10 | XMS | Encounter Summary ---
Demographics + + + | Address | [address] | | | [place] [address] | + + + | Home Phone | | + + + | Preferred Language | Unknown | + + + | Marital Status | Single | + + + | Jainism Affiliation | CAT | + + + [...] Team Providers + +------+ + | Care Rivet Heater Gas Name | Role | Phone | + [...] as of this encounter Progress Notes Interface, Conditioning Machine Operator In - 2005 10:48 PM PDTClinic Date: [...] x-ray. Francis Moe M.D. CONSTANCE / WALDO [id number] / [id number] / [id number] / Tdocumented in this encounter Plan of Treatment Not on filedocumented as of this encounter Visit Diagnoses Not on filedocumented in this encounter"
--- OUTSIDE RECORDS SUMMARY | ~2020-03-10 | XMS | Encounter Summary ---
Demographics + + + | Address | [address] | | | [place] [address] | + + + | Home Phone [...] [place] | | | | | [address] | | + + + + + | Scot Damico | ECON | [address] | | | | | [place] [address] | | + + + + + Care Team Providers + +------+ + | Care Family Support Coordinator Name | Role | Phone | [...] | | | | | | [place] [address] | | | | | | [phone] | | | +--------+ + + + [...] COPD (chronic obstructive pulmonary disease) ([facility]) PANCHITO (obstructive sleep apnea) 09/2014 [...] breakfast)., Disp: , Rfl: Respiratory Therapy Supplies [facility], Res Med S9 auto CPAP 9 cm [...] | | | [place] [address] | | | | | | [phone] | | | | | | | | +--------+---------+ + + + documented as of this encounter Visit Diagnoses Not on filedocumented in this encounter"
--- OUTSIDE RECORDS SUMMARY | ~2020-03-10 | XMS | Encounter Summary ---
Demographics + + + | Address | [address] | | | [place] [address] | + + + | Home Phone [...] [place] | | | | | [address] | | + + + + + | Scot Damico | ECON | [address] | | | | | [place] [address] | | + + + + + Care Team Providers + +------+ + | Care Copyright Manager Name | Role | Phone | [...] + + | 04/22/ | Telephone | [facility] [place] | [place], | Other (vascular | | 2015 | | PULMONARY [address] | Irina Sofia MD | study) | | | | [place], | | | | | | [place] [address] | | | | | | [phone] | | | +--------+ + + + [...] | | | | | | [place] [address] | | | | | | [phone] | | | | | | | | +--------+---------+ + + + documented as of this encounter Visit Diagnoses Not on filedocumented in this encounter"
--- OUTSIDE RECORDS SUMMARY | ~2020-03-10 | XMS | Encounter Summary ---
Demographics + + + | Address | [address] | | | [place] [address] | + + + | Home Phone [...] [place] | | | | | [address] | | + + + + + | Scot Damico | ECON | [address] | | | | | [place] [address] | | + + + + + Care Team Providers + +------+ + | Care Waistline Joiner Lockstitch Name | Role | Phone | + +------+ + | Ralph Chatman MD | PCP | | + +------+ + Encounter Details +--------+ + + + + | Date | Type | Department | Care Team | Description | +--------+ + + + + | 07/06/ | Hospital | [facility] | Mio Hughes S, | | | 2012 | Encounter | MED CTR CARDIAC | MD [address] | | | | | ADMIT AND RECOVERY | [address] [place] | | | | | [address] | [address] | | | | | [place] | | | | | | [address] | | | | | | [phone] | | | +--------+ + + + [...] D | | | | | | [place] [address] | | | | | | [phone] | | | | | | | [...] | | MEDICAL | | | | [email or web address]. | | CENTER | | | | [...] SACRED | [address] | [place] [address] | | | [facility] | | | | | LABORATORY [...] + + + | Glucose | 99Comment: Pakistani | 65 - 99 mg/dL | [facility] [...] + | [facility] | [address] | [place] [address] | | | [facility] | | | | | [...] + + | [facility] | [address] | [place] [address] | | | [facility] | | | | | LABORATORY | | | | + + + + + documented in this encounter Visit Diagnoses Not on filedocumented in this encounter
--- OUTSIDE RECORDS SUMMARY | ~2020-03-10 | XMS | Encounter Summary ---
Demographics + + + | Address | [address] | | | [place] [address] | + + + | Home Phone [...] Team Providers + +------+ + | Care Nuclear Fuels Reclamation Engineer Name | Role | Phone | + +------+ + PCP | Unavailable | + +------+ + Encounter Details +--------+ + + + + | Date | Type | Department | Care Team | Description | +--------+ + + + + | 11/25/ | Results | | Other, Faculty | | | 2003 | Only | | [phone] | | +--------+ + + + + [...] DEPARTMENT OF | [address] | [place] [address] | | | PATHOLOGY | [address] | | | + + + + + | [facility] DEPARTMENT OF | [address] | [place] [address] | | | PATHOLOGY | [address] [...] | + + + + + | [facility] | [address] | [place] [address] | | | PATHOLOGY | [address] | | | + + + + + | [facility] OF | [address] | [place] [address] | | | PATHOLOGY | [address] [...] + + + | [facility] | [address] | [place] [address] | | | LAB-MICRO | | | [...] + + + | [facility] | [address] | [place] [address] | | | LAB-MICRO | | | | + + + + + documented in this encounter Visit Diagnoses Not on filedocumented in this encounter"
--- OUTSIDE RECORDS SUMMARY | ~2020-03-10 | XMS | Encounter Summary ---
Demographics + + + | Address | [address] | | | [place] [address] | + + + | Home Phone | | + + + | Preferred Language | Unknown | + + + | Marital Status | Single | + + + | Pentecostal Affiliation | CAT | + + + | Race | White | + + + | Ethnic Group | Not or | + + + Author + + + | Author | [facility] | + + + | Organization | [facility] | + + + | Address | Unknown | + + + | Phone | Unavailable | + + + Support + + +---------+ + | Name | Relationship | Address | Phone | + + +---------+ + | Elizabeth Damico | ECON | Unknown | | + + +---------+ + Care Team Providers + +------+ + | Care Hand Tool Filer Name | Role | Phone | + [...] CH16D | | | | | | [facility] | | | | | | and Healing, | | | | | | [facility] [address], [facility] | | | | | | [place], [place] | | | | | | [address] | | | | | | [phone] | | | +--------+ + + + [...] documented in this encounter Results DERMATOPATHOLOGY([facility]) (01/10/2012) + + + + + + [...] Damico | | | | | | [place]:A: Specimen is | | | | | | labeled "Chest" and | | | | | | consists of an ellipse | | | | | | of garcia-white | | | | | | [id number]. The | | | | | | [...] [facility] | Mailcode [address] | [place] [address] | | | DERMATOPATHOLOGY | [address] | | | + + + + + documented in this encounter Visit Diagnoses Not on filedocumented in this encounter
--- OUTSIDE RECORDS SUMMARY | ~2020-03-10 | XMS | Encounter Summary ---
Demographics + + + | Address | [address] | | | [place] [address] | + + + | Home Phone | | + + + | Preferred Language | Unknown | + + + | Marital Status | | + + + | Congregational Affiliation | 1041 | + + + | Race | Unknown | + + + | Ethnic Group | Unknown | + + + Author + + + | Author | [facility] | | | and [place] | + + + | Organization | [facility] | | | [...] [place] | | | | | [address] | | + + + + + | Scot Damico | ECON | [address] | | | | | [place] [address] | | + + + + + Care Team Providers + +------+ + | Care Asset Protection Detective Name | Role | Phone | + [...] [place] | | | | | [address] | [address] | | | | | [phone] | [phone] | | | | | | | [...] D | | | | | | [place] [address] | | | | | | [phone] | | | | | | | [...] | | | function. 3. 27 mm Healthcentrix Gonzalez II porcine Aortic valve is well [...] 0.03 m/s | | | MV Dec [place]: 5.81 m/s2 MV DecT: 167.95 ms MV E William: 0.97 | | | m/s MV E/A Ratio: 28.85 MV PHT: 48.70 ms MVA By PHT: 4.51 | | | cm2 Septal e': 0.09 m/s Septal E/e': 10.75 RAP: 5 mmHg | | | RVSP: 32.36 mmHg TR maxP.36 mmHg TR Vmax: 2.61 m/s | | | Service Aide: AUSTYN Authenticated by: Boogie Wilsonsaline Report | | | Date/Time: 07-17-2018 18:24:47 | | + + + + + | Procedure Note | + + | Niles Recinos Conversion - 05/28/2019 4:31 PM PDT Patient Name: Myron Damico of | | : 1935 Performing Physician: Boogie | | [facility] INDICATIONS------ | | -----CHF, Porcine [...] cmLVIDd: 5.86 cmLVPWd: 1.03 cmLVOT Area: 5.53 es8LURK Diam: 2.65 cm%FS: 19.07 | | %EF(Teich): [...] (A-L): 37.09 ml/m2LAAs A2C: 19.60 | | pu7YIBFS A-L A2C: 57.63 mlLALs A2C: 5.66 cmLAAs A4C: 23.43 od7ZKUWL A-L A4C: | | 83.79 mlLALs A4C: 5.56 cmRAAs: 20.90 ps6XGRIZ A-L: 65.61 mlRAESV MOD: 62.32 | | mlRALs: 5.65 cmTAPSE: 2.05 cmAV maxP.27 mmHgAV meanP.99 mmHgAV Vmax: | | 2.56 m/Nikki Vmean: 1.91 m/Nikki VTI: 50.23 cmAVA Vmax: 1.42 cm2AVA (VTI): 1.38 | | un6MGSS maxP.74 mmHgLVOT meanP.93 mmHgLVSI Dopp: 36.70 ml/m2LVSV Dopp: | | 69.36 mlLVOT Vmax: 0.66 m/sLVOT Vmean: 0.45 m/sLVOT VTI: 12.52 cmMV A William: 0.03 | | m/sMV Dec [place]: 5.81 m/s2MV DecT: 167.95 msMV E William: 0.97 m/sMV E/A Ratio: | | 28.85MV PHT: 48.70 msMVA By PHT: 4.51 mg7Jxxibr e': 0.09 m/sSeptal E/e': | | 10.75RAP: 5 mmHgRVSP: 32.36 mmHgTR maxP.36 mmHgTR Vmax: 2.61 m/s | | Service Aide: DHAuthenticated by: Boogie Garcías[facility] Date/Time: 07-17-2018 18:24:47 | | IMPRESSION: 1. [...] A William: 0.03 m/s | |MV Dec [place]: 5.81 m/s2 | |MV DecT: 167.95 ms | |MV E William: 0.97 m/s | |MV E/A Ratio: 28.85 | |MV PHT: 48.70 ms | |MVA By PHT: 4.51 cm2 | |Septal e': 0.09 m/s | |Septal E/e': 10.75 | |RAP: 5 mmHg | |RVSP: 32.36 mmHg | |TR maxP.36 mmHg | |TR Vmax: 2.61 m/s | | | |Service Aide: AUSTYN | |Authenticated by: Boogie Wang | |Report Date/Time: 07-17-2018 18:24:47 | | | |IMPRESSION: | |1. The left ventricle is mildly dilated, low normal systolic function EF 50%. | |2. The right ventricle is normal in size and function. | |3. 27 mm MedtronBiomonde Gonzalez II porcine Aortic valve is well seated with normal function. | |4. Moderate tricuspid regurgitation present. | |5. There is no pericardial effusion. | + + documented in this encounter Visit Diagnoses Not on filedocumented in this encounter"
--- OUTSIDE RECORDS SUMMARY | ~2020-03-10 | XMS | Encounter Summary ---
Demographics + + + | Address | [address] | | | [place] [address] | + + + | Home Phone [...] [place] | | | | | [address] | | + + + + + | Scot Damico | ECON | [address] | | | | | [place] [address] | | + + + + + Care Team Providers + +------+ + | Care Crop Puller Name | Role | Phone | + +------+ + | Ralph Chatman MD | PCP | | + +------+ + Encounter Details +--------+ + + + + | Date | Type | Department | Care Team | Description | +--------+ + + + + | 02/11/ | Hospital | [facility] | | | | 2012 | Encounter | MED CTR XRAY [address] | | | | | | [place] | | | | | | [place] [address] | | | | | | [phone] | | | +--------+ + + + [...] | | | | | | [place] [address] | | | | | | [phone] | | | | | | | [...] Performed At | + + + | [facility] Diagnostic Imaging | ANTHONY | | Department [address] [place] [address] [facility] | | [ rep [address]] [ rep [facility] | | st zip] Signed | - IMAGING | | | | | Patient Name: IRAIDA DAMICO Physician: | | | THAIS.20 : 1935 Age: 77 Sex: M Unit #: [id number] | | | Exam Date: 02/11/13 Location: [facility] | | | Report #: [id number] Page: | | | %(RAD)RES..mtdd.print.filter("pg") of %(RAD) | | | RES..mtdd.print.filter("tpg") | | | | | | Accession Number: [id number] | | | CHEST X-RAY, 02/11/2013 CLINICAL [...] | | | Transcribed Date/Time: 02/11/2013 16:41 [employer] Parts Sales: | | | <<Signature on File>> | | | Sridhar | | | MD Barak02/12/13 0028 <Electronically signed by Sridhar Cancino MD> | | | Sridhar Cancino MD 02/11/13 1546 Inside Parts Sales: Moreliax | | | Fucvtcbirnnsp16/08/13 0641 Ralph Chatman MD | | | | | + + + + + + + + | Performing | Address | City/State/Zipcode | Phone Number | | Organization | | | | + + + + + | [facility] | [address] | [place] | [phone] | | [facility] | | [address] | | | - IMAGING | | | | + + + + + documented in this encounter Visit Diagnoses Not on filedocumented in this encounter
--- OUTSIDE RECORDS SUMMARY | ~2020-03-10 | XMS | Encounter Summary ---
Demographics + + + | Address | [address] | | | [place] [address] | + + + | Home Phone [...] [place] | | | | | [address] | | + + + + + | Scot Damico | ECON | [address] | | | | | [place] [address] | | + + + + + Care Team Providers + +------+ + | Care House Father Name | Role | Phone | + [...] | | Pulmonary | [place], | [address] [place] | | | | | nodules | Irina B, | [place], | | | | | Procedures | MD [address] | [place] [address] | | | | | CT Chest wo | [address] | Phone: | | | | | Contrast | [place], | [phone] | | | | | | [place] [address] | Fax: | | | | | | | [phone] | +--------+--------+ + + + + Encounter Details +--------+ + + + + | Date | Type | Department | Care Team | Description | +--------+ + + + + | 07/29/ | Hospital | [facility] | [place], | Pulmonary nodules | | 2015 | Encounter | MED CTR CT [address] | Irina Sofia MD | | | | | [place], | | | | | | [place] [address] | | | | | | [phone] | | | +--------+ + + + [...] | | | [place] [address] | | | | | | [phone] | | | | | | | [...] CT chest 07/29/2014. PROTOCOL: Axial | [facility] | | images of the chest were obtained. Coronal and sagittal reformations | [facility] | | were acquired. FINDINGS: [...] [address] | [place] | [phone] | | [facility] | | [address] | | | - IMAGING | | | | + + + + + documented in this encounter Visit Diagnoses + + | Diagnosis | + + | Pulmonary nodules Other nonspecific abnormal finding of lung field | + + documented in this encounter"
--- OUTSIDE RECORDS SUMMARY | ~2020-03-10 | XMS | Encounter Summary ---
Demographics + + + | Address | [address] | | | [place] [address] | + + + | Home Phone [...] Team Providers + +------+ + | Care Insulation Batting Machine Operator Name | Role | Phone [...] | Transcriptions | + + | Interface, Grinder Set Up Operator Thread Tool In - 09/26/2005 6:19 AM PST Date: | | 11/25/2003Attending Surgeon: Maria C Vences M.D.Director Of Category Management(s): | | Mc Arnold M.D.Preoperative Diagnosis:L3-L4 epidural [...] midline skin incision was done from the G1sjbfcmx process to L5 spinous process and then [...] M.D.Maria C Vences, | | PIPE / [id number] / [id number] / [id number] / [id number]: 11/25/2003T: 11/26/2003 | | | |Indications: | [...] | | | |AD / HS | |[id number] / [id number] / [id number] / [id number] | | | | | + + documented in this encounter Visit Diagnoses Not on filedocumented in this encounter"
--- OUTSIDE RECORDS SUMMARY | ~2020-03-10 | XMS | Encounter Summary ---
Demographics + + + | Address | [address] | | | [place] [address] | + + + | Home Phone [...] [place] | | | | | [address] | | + + + + + | Scot Damico | ECON | [address] | | | | | [place] [address] | | + + + + + Care Team Providers + +------+ + | Care Shampoo Person Name | Role | Phone | + [...] | 05/20/14 results) | | | | [place], | | | | | | [place] [address] | | | | | | [phone] | | | +--------+ + + + [...] | | | [place] [address] | | | | | | [phone] | | | | | | | | +--------+---------+ + + + documented as of this encounter Visit Diagnoses Not on filedocumented in this encounter"
[~2020-03-10 16:53] MED LIST: NORCO 5-325 TA1 EACH PO
[2020-03-10] MEDS ORDERED: KEFLEX500 MG PO (20:21)
== END 2020-03-10 20:38 | disposition home or self-care (01) ==
LOC: ED 16:53
DX: L03.116 Cellulitis of left lower limb (principal); Z88.8 Allergy status to other drugs, medicaments and biological substances
CPT/HCPCS: 80053; 85025; 85610; 85730; 93971; 99284-25

== ENCOUNTER 2020-06-20 00:58 | Inpatient (IN) | payer MEDICARE, OTHER ==
[~2020-06-20] VITALS: Ht 160 cm; Wt 73.5 kg
--- OUTSIDE RECORDS SUMMARY | ~2020-06-20 | XMS | Encounter Summary ---
Demographics + + + | Address | [address] | | | [place] [address] | + + + | Home Phone | | + + + | Preferred Language | Unknown | + + + | Marital Status | Single | + + + | Scientologist Affiliation | CAT | + + + [...] Team Providers + +------+ + | Care Buyer Assistant Name | Role | Phone | + [...] on file | | + + + documented as of this encounter [...] [place], | | | | | | M.DOttoCHEST RADIOGRAPH: | | | | | | [...] | | + +---------+ + + | [facility] DEPARTMENT OF | | | | | RADIOLOGY | | | | + +---------+ + + documented in this encounter Visit Diagnoses Not on filedocumented in this encounter"
--- OUTSIDE RECORDS SUMMARY | ~2020-06-20 | XMS | Encounter Summary ---
Demographics + + + | Address | [address] | | | [place] [address] | + + + | Home Phone | | + + + | Preferred Language | Unknown | + + + | Marital Status | | + + + | Bahai Affiliation | 1041 | + + + | Race | White | + + + | Ethnic Group | Not or | + + + Author + + + | Author | [facility] | | | and [place] | + + + | Organization | [facility] | | | and [place] | + + + | Address | Unknown | + + + | Phone | Unavailable | + + + Support + + + + + | Name | Relationship | Address | Phone | + + + + + | Jadyn Damico | ECON | [address] | | | | | [place] | | | | | [address] | | + + + + + | Scot Damico | ECON | [address] | | | | | [place] [address] | | + + + + + Care Team Providers + +------+ + | Care Rouge Mixer Name | Role | Phone | + +------+ + | Ralph Chatman MD | PCP | | + +------+ + Reason for Referral Diagnostic/Screening (Routine) +--------+--------+ + + + + | Status | Reason | Specialty | Diagnoses / | Referred By | Referred To | | | | | Procedures | Contact | Contact | +--------+--------+ + + + + | Closed | | Radiology | Diagnoses | | [address] | | | | | Pulmonary | [place], | [address] | | | | | nodules | Irina B, | [place], | | | | | Procedures | MD [address] | [place] [address] | | | | | CT Chest wo | [address] | Phone: | | | | | Contrast | [place], | [phone] | | | | | | [place] [address] | Fax: | | | | | | | [phone] | +--------+--------+ + + + + Reason for Visit +--------+ + | Reason | Comments | +--------+ + | Apnea | f/u PANCHITO (obstructive sleep apnea) | +--------+ + Encounter Details +--------+---------+ + + + | Date | Type | Department | Care Team | Description | +--------+---------+ + + + | 04/01/ | Office | [facility] | [place], | COPD (chronic | | 2014 | Visit | PULMONARY [address] | Irina Sofia MD | obstructive | | | | [address] [place], | | pulmonary disease) | | | | [place] [address] | | (HCC); PANCHITO | | | | [phone] | | (obstructive sleep | | | | | | apnea); Pulmonary | | | | | | nodules; Leg fatigue | +--------+---------+ + + + Social History + + + +--------+ + | Tobacco Use | Types | Packs/Day | Years | Date | | | | | Used | | + + + +--------+ + | Former Smoker | Cigarettes | 0.5 | 1 | Quit: 10/07/1957 | + + + +--------+ + + + +---------+ + | Alcohol Use [...] + + documented as of this encounter Last Filed Vital Signs + + + + + | Vital Sign | Reading | Time Taken | Comments | + + + + + | Blood Pressure | 128/66 | 04/01/2015 4:05 PM | | | | | PDT | | + + + + + | Pulse | 59 | 04/01/2015 4:05 PM | | | | | PDT | | + + + + + | Temperature | - | - | | + + + + + | Respiratory Rate | 14 | 04/01/2015 4:05 PM | | | | | PDT | | + + + + + | Oxygen Saturation | 97% | 04/01/2015 4:05 PM | room air | | | | PDT | | + + + + + | Inhaled Oxygen | - | - | | | Concentration | | | | + + + + + | Weight | 84.6 kg (186 lb 6.4 | 04/01/2015 4:05 PM | | | | oz) | PDT | | + + + + + | Height | 170.2 cm (5' 7") | 04/01/2015 4:05 PM | | | | | PDT | | + + + + + | Body Mass Index | 29.19 | 04/01/2015 4:05 PM | | | | | PDT | | + + + + + documented in this encounter Patient Instructions Patient Instructions Irina Norton MD - 04/01/2015 4:50 PM PDTAs long as you are stable, you do not need to go back on Symbicort or Spiriva. Continue to exercise as you are doing. Stay on CPAP nightly. You might try going back on a nasal mask and see if this is more comf ortable and does not cause issues. Schedule study on your legs at [facility]. documented in this encounter Progress Notes Irina Norton MD - 04/01/2015 4:07 PM PDTFormatting of this note might be differe nt from the original. Sleep Follow Up HPI Iraida Steve Damico is a 79 y.o. male patient of Ralph Chatman here today for follo w up of PANCHITO and COPD. He notes that he has been wearing their CPAP. Their compliance has been good. They are not having issues with their CPAP machine such as the sensation of excessive pressure or a poorl y fitting mask. He still does not like the idea of having to wear a mask and strap at night as he finds it cumbersome. He does forget to put it back on at times when he wakes up. He i s not taking it off in his sleep. He feels like he is about the same, but his thinks he sleeps better. He is going to be d at 11 pm and getting up 6:30am. They had some house guests recently who slept a lot less t bolaños they did, and stayed up later, which cut in to his sleep somewhat. He is still waking up 2 times per night, and then falls back asleep easily. When he wakes up in the morning he fe els rested, though at times he does get tired and sleepy during the day. He rarely naps, but he does sometimes sit down and rest. If he walks on level ground, he could walk close to 1/2 mile, and at least 3 blocks. He not es he has to stop and rest his back and for his breathing. He is going to the athletic club and exercising every other day for about an hour and a half. He has tried doing some more ex ertional activities. It has been somewhat difficult as they have been travelling a lot which sometimes interferes with his exercise routine. He does do weight lifting. When he walks on the treadmill, he walks on level ground, not at an incline. He does not get short of breath if he goes up one flight of stairs, but does get short of breath if he has to go more than one flight. He thinks he could do 2 flights of stairs without stopping. He is still doing all of the yard work, though he has been avoiding going out in the heat. He quit the Symbicort because it was not helping. He talked to Dr. Chatman who felt like if it was not helping, he should not stay on it. He is not using the albuterol inhaler at all. Past Medical History Past Medical History Diagnosis Date Aortic valve regurgitation 2005 s/p AVR 07/2013 Hypertension Degenerative joint disease Epidural abscess 2003 related to septic knee Pneumonia 04/2013 several episodes, including as an Septic arthritis of knee (HCC) after knee surgery Melanoma (HCC) 2009, 2010 x 3 COPD (chronic obstructive pulmonary disease) (HCC) PANCHITO (obstructive sleep apnea) 09/2014 mild AHI 7.6, severe in supine sleep with AHI of 60.5 Past Surgical History Past Surgical History Procedure Laterality Date Tonsillectomy and adenoidectomy Laminectomy 2004 epidural abscess Lumbar fusion 2007 Aortic valve replacement/repair 07/08/2013 27mm Metronic Gonzalez II bioprosthesis, Dr. 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 Social History Main Topics Smoking status: Former Smoker -- 0.50 packs/day for 1 years Types: Cigarettes Quit date: 10/07/1957 Smokeless tobacco: None Alcohol Use: 0.0 oz/week 2-3 Glasses of wine per week Drug Use: No Sexual Activity: None Other Topics Concern None Social History Narrative Lives: [place] With: his Grew up: [facility] Has previously lived in: [place], [place], born in [place] Exposure to toxic chemicals: possibly as a pharmacist, did not do a lot of compounding Exposure to asbestos: no Exposure to tuberculosis: no Has had a PPD or Quantiferon before: he thinks so Has pets at home: no Has ever owned birds: their son had one in the remote past Other animal exposures: have had dogs and cats Hobbies: golf, skiing in the past, gardening Allergies: Allergies Allergen Reactions Lisinopril Cough Medications: Outpatient Encounter Prescriptions as of 04/01/2015 Medication Sig Dispense Refill acetaminophen (TYLENOL) 500 mg tablet Take 500 mg by mouth every 6 hours as needed. albuterol (PROAIR HFA) 90 mcg/puff inhaler Inhale 2 puffs into the lungs every 6 hours as needed. amLODIPine (NORVASC) 5 mg tablet Take 5 mg by mouth Daily. ascorbic acid (VITAMIN C) 500 mg tablet Take 500 mg by mouth Daily. aspirin 325 mg tablet Take 325 mg by mouth Daily. B Complex Vitamins (B COMPLEX 100 PO) Take 100 mg by mouth Daily. budesonide-formoterol (SYMBICORT) 160-4.5 mcg/puff inhaler Inhale 2 puffs into the lung s 2 times daily. 1 Inhaler 3 Cholecalciferol (VITAMIN D3) 2000 UNITS CAPS Take 2,000 Units by mouth Daily. loperamide ([employer] ANTI-DIARRHEAL) 2 MG tablet Take 2 mg by mouth as needed. losartan (COZAAR) 100 MG tablet Take 100 mg by mouth Daily. metoprolol tartrate (LOPRESSOR) 25 mg tablet Take 25 mg by mouth 2 times daily. omeprazole (PRILOSEC) 20 mg capsule Take 20 mg by mouth every morning (before breakfast ). Respiratory Therapy Supplies [facility] S9 auto CPAP 9 cm H2O. Heater and Humidifier. All necessary supplies. AHI 7.6, 60.5 in supine. Diagnosis Code(s)327.23. Length of Need 99 months. Please send order to [facility]. 1 each 99 No facility-administered encounter medications on file as of 04/01/2015. Review of Systems: General: []Weight loss/gain (over 10 lbs) []Fever/chills/sweats []Night sweats EENT: []Hearing loss []Vision loss/change []Sinus congestion/nasal drainage []Nosebleeds [] Hoarseness Cardiac: []Chest pain []Palpitations/heart racing []Swelling of legs/ankles []Waking up at night s hort of breath []Difficulty sleeping flat Gastrointestinal: []Nausea/vomiting []Difficulty swallowing []Heartburn/acid reflux []Loss of appetite []Abd ominal pain Urologic: []Blood in urine []Frequent urination at night []Burning/painful urination []Difficulty wit h urination Objective BP 128/66 | Pulse 59 | Resp 14 | Ht 1.702 m (5' 7") | Wt 84.55 kg (186 lb 6.4 oz) | BMI 29. 19 kg/m2 | SpO2 97% General Appearance: Alert, cooperative, no distress, appears stated age Head: Normocephalic, without obvious abnormality, atraumatic Eyes: PERRL, conjunctiva clear, no scleral icterus, EOM's intact Ears: Wearing hearing aides, diminished acuity Nose: Nares normal, septum midline, mucosa normal Mouth: No oral lesions or exudate Neck: Supple, symmetrical, no adenopathy Lungs: No accessory muscle use, breath sounds are diminished bilaterally with prolongatio n of the expiratory phase, no wheezes, crackles or rhonchi Chest Wall: No deformity Heart: Regular rate and rhythm, no murmur, rub or gallop Abdomen: Soft, non-tender, non-distended Extremities: No cyanosis, clubbing, or edema Pulses: Radial pulses 2+ and symmetric, DP pulses 1-2 Plus B/L Skin: Warm and dry Lymph nodes: Cervical and supraclavicular nodes normal CPAP Data: Dates: 03/02/15-03/31/15 Machine type: WegoWise AirDodreamsse S10 auto CPAP Home Health Company: [facility] CPAP Pressure: 9 cmH2O AHI: 2.6 events/hour (down from 4.1) Total number of days: 30 Number of days used: 30 Median daily usage: 5:43 hours Percent of days used for more than 4 hours: 83 % Median leak: 3.0 L/min Immunization History Administered Date(s) Administered INFLUENZA, >= 4YO W/PRESERVATIVE IM 07/07/2013 INFLUENZA, TRIVALENT PRESERVATIVE FREE (PED/ADOL/ADULT) 06/21/2014 ZOSTER, 1 DOSE (ADULT) 07/07/2012 Assessment 1. COPD (chronic obstructive pulmonary disease) (HCC) - Off of both Symbicort and Spiriva, having self discontinued these. He thinks they were not helpful, though overall, his functio nal status has improved, unclear how much of this is from increased exercise and how much is from increased activity. Given lack of mortality benefit for inhalers, I advised that as lo ng as he is stable and not feeling like he is getting symptomatic benefit, he is fine to sto p these. 2. PANCHITO (obstructive sleep apnea) - Good compliance and improved energy level. His also notes he sleeps considerably better and seems much more rested to her despite his less enth uthiastic response. 3. Pulmonary nodules - Due for repeat CT scan in July 2015. 4. Leg fatigue - I noted that there could be several reasons for his leg fatigue, including muscle weakness, back issues, and blood supply issues. He has decent pedal pulses, but we w ill check an BEBE to make sure he is not having vascular issues on exertion. Plan 1. Okay to stay off of Symbicort and Spiriva if stable. 2. Continue exercise as he is doing. 3. Stay on CPAP nightly. Consider trying nasal mask again. 4. Check BEBE. 5. Repeat chest C T scan in July. Return to clinic in July, or sooner with concerns. CC: Ralph Chatman Portions of this report were transcribed using voice recognition software. Every effort wa s made to ensure accuracy; however, inadvertent computerized real estate coordinator errors may be pre sent. documented in t his encounter Plan of Treatment +--------+ + + + + | Date | Type | Specialty | Care Team | Description | +--------+ + + + + | 06/23/ | Office | Cardiology | Rowdy Haines | | | 2019 | Visit | | MD Gabriel Ricketts | | | | | | [place] | | | | | | [facility] [place] [place] [address] | | | | | | [phone] | | | | | | | | +--------+ + + + + | 06/23/ | Procedure | Cardiology | | | | 2019 | visit | | | | +--------+ + + + + | 07/06/ | Office | Neurology | Dada Goodwin, | | | 2019 | Visit | | MD Gabriel [address] | | | | | | [address] | | | | | | [place] [address] | | | | | | [phone] | | | | | | | | +--------+ + + + + documented as of this encounter Results CT Chest wo Contrast (07/29/2015 12:50 PM PDT) + + | Specimen | + + | | + + + + + | Narrative | Performed At | + + + | CT CHEST WO CONTRAST 07/29/2015 12:45 PM HISTORY: Follow up | [facility] | | nodules. COMPARISON: CT chest 07/29/2014. PROTOCOL: Axial | [facility] | | images of the chest were obtained. Coronal and sagittal reformations | [facility] | | were acquired. FINDINGS: Neck base is normal. The heart is of | - IMAGING | | normal size. A prosthetic aortic valve is present. Mild coronary | | | calcifications are seen. There is mild atherosclerosis of the aorta | | | extending into the branches. The ascending thoracic aorta is ectatic | | | and measures 4.2 cm in the AP dimension, which is stable. The | | | pulmonary arteries are unremarkable. SVC is normal. No enlarged | | | lymph nodes are seen in the mediastinum, franklyn, or axilla. Trachea and | | | esophagus demonstrate no acute findings. A stable 2 mm nodule is | | | in the left lingula (image 57). There is mild dependent atelectasis. | | | No pleural effusion or pneumothorax is seen. There is a small cyst | | | is in the lateral right kidney with simple fluid that measures 1.3 | | | cm. A tiny nonobstructing stone is in the upper pole of the left | | | kidney. Moderate atrophy is present of the pancreas. Chest wall | | | structures are normal. Sternotomy wires are present with incomplete | | | union. There is mild left curvature of the lumbar spine. | | | IMPRESSION - Stable 2 mm nodule in left lingula. Stable ectasia | | | of ascending thoracic aorta that measures 4.2 cm in the AP dimension. | | | Prior sternotomy with incomplete union and placement of | | | prosthetic aortic valve. Dictated and Signed by: Sridhar Cancino MD | | | Electronically signed: 07/29/2015 1:34 PM | | + + + + + | Procedure Note | + + | Jorje, Rad Results In - 07/29/2015 1:[address] CHEST WO CONTRAST 07/29/2015 12:45 | | PMHISTORY: Follow up nodules.COMPARISON: CT chest 07/29/2014.PROTOCOL: Axial images of | | the chest were obtained. Coronal and sagittalreformations were acquired.FINDINGS:Neck | | base is normal.The heart is of normal size. A prosthetic aortic valve is present. Mild | | coronarycalcifications are seen. There is mild atherosclerosis of the aorta | | extendinginto the branches. The ascending thoracic aorta is ectatic and measures 4.2 | | cmin the AP dimension, which is stable. The pulmonary arteries are unremarkable.SVC is | | normal.No enlarged lymph nodes are seen in the mediastinum, franklyn, or axilla. Tracheaand | | esophagus demonstrate no acute findings.A stable 2 mm nodule is in the left lingula | | (image 57). There is mild dependentatelectasis. No pleural effusion or pneumothorax is | | seen.There is a small cyst is in the lateral right kidney with simple fluid thatmeasures | | 1.3 cm. A tiny nonobstructing stone is in the upper pole of the leftkidney. Moderate | | atrophy is present of the pancreas.Chest wall structures are normal. Sternotomy wires | | are present with incompleteunion. There is mild left curvature of the lumbar | | spine.IMPRESSION -Stable 2 mm nodule in left lingula.Stable ectasia of ascending | | thoracic aorta that measures 4.2 cm in the APdimension.Prior sternotomy with incomplete | | union and placement of prosthetic aortic valve.Dictated and Signed by: Sridhar Cancino MD | | Electronically signed: 07/29/2015 1:34 PM | |No enlarged lymph nodes are seen in the mediastinum, franklyn, or axilla. Trachea | |and esophagus demonstrate no acute findings. | | | |A stable 2 mm nodule is in the left lingula (image 57). There is mild dependent | |atelectasis. No pleural effusion or pneumothorax is seen. | | | |There is a small cyst is in the lateral right kidney with simple fluid that | |measures 1.3 cm. A tiny nonobstructing stone is in the upper pole of the left | |kidney. Moderate atrophy is present of the pancreas. | | | |Chest wall structures are normal. Sternotomy wires are present with incomplete | |union. There is mild left curvature of the lumbar spine. | | | |IMPRESSION - | |Stable 2 mm nodule in left lingula. | | | |Stable ectasia of ascending thoracic aorta that measures 4.2 cm in the AP | |dimension. | | | |Prior sternotomy with incomplete union and placement of prosthetic aortic valve. | | | |Dictated and Signed by: Sridhar Cancino MD | | Electronically signed: 07/29/2015 1:34 PM | + + + + + + + | Performing | Address | City/State/Zipcode | Phone Number | | Organization | | | | + + + + + | [address] | [address] | [place] | [phone] | | [facility] | | [id number] | | | - IMAGING | | | | + + + + + documented in this encounter Visit Diagnoses + + | Diagnosis | + + | COPD (chronic obstructive pulmonary disease) (HCC) Chronic airway obstruction, not | | elsewhere classified | + + | PANCHITO (obstructive sleep apnea) Obstructive sleep apnea (adult) (pediatric) | + + | Pulmonary nodules Other nonspecific abnormal finding of lung field | + + | Leg fatigue Other musculoskeletal symptoms referable to limbs | + + documented in this encounter
--- OUTSIDE RECORDS SUMMARY | ~2020-06-20 | XMS | Encounter Summary ---
Demographics + + + | Address | [address] | | | [place] [address] | + + + | Home Phone | | + + + | Preferred Language | Unknown | + + + | Marital Status | | + + + | Caodaism Affiliation | 1041 | + + + | Race | White | + + + | Ethnic Group | Not or | + + + Author + + + | Author | [facility] | | | and [place] | + + + | Organization | [facility] | | | and [place] | + + + | Address | Unknown | + + + | Phone | Unavailable | + + + Support + + + + + | Name | Relationship | Address | Phone | + + + + + | Jadyn Cassandra Damico | ECON | [address] | | | | | [place] | | | | | [address] | | + + + + + | Scot Damico | ECON | [address] | | | | | [place] [address] | | + + + + + Care Team Providers + +------+ + | Care Party Planner Name | Role | Phone | + +------+ + PCP | Unavailable | + +------+ + Encounter Details +--------+ + + + + | Date | Type | Department | Care Team | Description | +--------+ + + + + | 08/08/ | Hospital | [facility] | Unknown, | | | 2005 | Encounter | MED CTR XRAY [address] | MD Pratima . | | | | | [place] | | | | | | [place] [address] | (Fax) | | | | | [phone] | | | +--------+ + + + [...] as of this encounter Plan of Treatment +--------+ + + + + | Date | Type | Specialty | Care Team | Description | +--------+ + + + + | 06/23/ | Office | Cardiology | Rowdy Haines | | | 2019 | Visit | | MD [address] | | | | | | [place] | | | | | | [place] [address] | | | | | | [phone] | | | | | | | [...] [place] | | | | | | [place] [address] | | | | | | [phone] | | | | | | | | +--------+ + + + + documented as of this encounter Visit Diagnoses Not on filedocumented in this encounter"
--- OUTSIDE RECORDS SUMMARY | ~2020-06-20 | XMS | Encounter Summary ---
Demographics + + + | Address | [address] | | | [place] [address] | + + + | Home Phone | | + + + | Preferred Language | Unknown | + + + | Marital Status | | + + + | Scientologist Affiliation | 1041 | + + + | Race | White | + + + | Ethnic Group | Not or | + + + Author + + + | Author | [facility] | | | and [place] | + + + | Organization | [facility] | | | and [...] [place] | | | | | [address] | | + + + + + | Scot Damico | ECON | [address] | | | | | [place] [address] | | + + + + + Care Team Providers + +------+ + | Care Kitchen Manager Name | Role | Phone | + +------+ + | Milvia Snyder MD | PCP | | + +------+ + Reason for Referral Evaluate & Treat (Routine) + + + + + + + | Status | Reason | Specialty | Diagnoses / | Referred By | Referred To | | | | | Procedures | Contact | Contact | + + + + + + + | Authorized | Specialty | Physical | Diagnoses | Christa | [facility] | | | Services | Therapy | Weakness | MD Dada | [place] | | | Required | | Falls | [address] | PHYSICAL | | | | | infrequently | [address] | THERAPY - | | | | | | DRIVE [address] | [place] | | | | | | D | [address] | | | | | | [place], | [facility] | | | | | | [place] [address] | 15 | | | | | | Phone: | [place] | | | | | | [phone] | [address] | | | | | | Fax: | Phone: | | | | | | [phone] | [phone] | | | | | | | Fax: | | | | | | | [phone] | + + + + + + + Evaluate & Treat (Routine) + + + + + + + | Status | Reason | Specialty | Diagnoses / | Referred By | Referred To | | | | | Procedures | Contact | Contact | + + + + + + + | Authorized | Specialty | Cardiology | Diagnoses | Jez [facility]win Ep | | | Services | | Falls | MD Dada | Cardiology | | | Required | | infrequently | [address] | [address] | | | | | | [address] | [address] | | | | | Orthostatic | DRIVE SU[address] | [place], [place] | | | | | jose miguel | D | [address] | | | | | ess | [place] Phone: | | | | | | [place] [address] | [phone] | | | | | | Phone: | Fax: | | | | | | [phone] | [phone] | | | | | | Fax: | | | | | | | [phone] | | + + + + + + + Diagnostic/Screening (Routine) + +--------+ + + + + | Status | Reason | Specialty | Diagnoses / | Referred By | Referred To | | | | | Procedures | Contact | Contact | + +--------+ + + + + | Authorizatio | | Radiology | Diagnoses | Tammaa, | [facility] [address] | | n not | | | Weakness | MD Dada | [address] | | Required | | | Falls | [address] | [place], [place] | | | | | infrequently | [address] | [address] | | | | | Procedures | DRIVE SUITE | Phone: | | | | | [place] | D | [phone] | | | | | Cervical | [place] | Fax: | | | | | Spine wo | [place] [address] | [phone] | | | | | Contrast | Phone: | | | | | | | [phone] | | | | | | | Fax: | | | | | | | [phone] | | + +--------+ + + + + Reason for Visit + + + | Reason | Comments | + + + | Follow-up | musculosceletal system | + + + Evaluate & Treat (Routine) + +--------+ + + + + | Status | Reason | Specialty | Diagnoses / | Referred By | Referred To | | | | | Procedures | Contact | Contact | + +--------+ + + + + | Authorized | | Neurology | Diagnoses | Kenyetta, | Christa, | | | | | Other | Ralph Trujillo, | MD Dada | | | | | symptoms and | [address] | [address] | | | | | signs | [address] | [address] | | | | | involving | [place] | | | | | the | [place] [address] | [place] | | | | | musculoskele | Phone: | [phone] | | | | | Com[facility]ility system | [phone] | Phone: | | | | | | Fax: | [phone] | | | | | | [phone] | Fax: | | | | | | | [phone] | + +--------+ + + + + Encounter Details +--------+---------+ + + + | Date | Type | Department | Care Team | Description | +--------+---------+ + + + | 05/02/ | Office | [facility] | Christa Cristyalena, | Weakness (Primary | | 2019 | Visit | NEUROLOGY [address] | Dx); Falls | | | | [address] | [address] | infrequently; | | | | [place], [place] | [place] [address] | Neuropathy; | | | | [address] | [phone] | Orthostatic | | | | [phone] | | lightheadedness | +--------+---------+ + + + Social History + + + +--------+ + | Tobacco Use | Types | Packs/Day | Years | Date | | | | | Used | | + + + +--------+ + | Never Smoker | Cigarettes | 0.5 | 1 | Quit: 10/07/1957 | + + + +--------+ + + +---+---+---+ | Smokeless Tobacco: | | | | | Never Used | | | | + +---+---+---+ + + +---------+ + | Alcohol Use | Drinks/Week | oz/Week | Comments | + + +---------+ + | Yes | 2-3 Glasses of | 0.0 | Alcoholic | | | wine | | Drinks/day: weekly | + + +---------+ + + + [...] + + + | Blood Pressure | 169/98 | 05/02/2020 8:21 AM | | | | | PDT | | + + + + + | Pulse | 89 | 05/02/2020 8:21 AM | | | | | PDT | | + + + + + | Temperature | - | - | | + + + + + | Respiratory Rate | 16 | 05/02/2020 8:21 AM | | | | | PDT | | + + + + + | Oxygen Saturation | 98% | 05/02/2020 8:21 AM | | | | | PDT | | + + + + + | Inhaled Oxygen | - | - | | | Concentration | | | | + + + + + | Weight | 78.9 kg (174 lb) | 05/02/2020 8:21 AM | | | | | PDT | | + + + + + | Height | 172.7 cm (5' 8") | 05/02/2020 8:21 AM | | | | | PDT | | + + + + + | Body Mass Index | 26.46 | 05/02/2020 8:21 AM | | | | | PDT | | + + + + + documented in this encounter Functional Status + + + [...] + + documented as of this encounter Patient Instructions Patient Instructions Jaswant Bower, Government Operations Consultant - 05/02/2020 8:30 AM PDTCall for Physical Therapy [id number] signed by Jaswant Bower Government Operations Consultant at 05/02/2020 9:0 0 AM PDT documented in this encounter Progress Notes Dada Goodwin MD - 05/02/2020 8:30 AM PDTFormatting of this note might be different fro m the original. Subjective: Patient ID: Iraida Damico is a 84 y.o. male. HPI I have seen this patient on 03/10/2020 for follow up on imbalance and falls. New vitis. - Onset, context and course:2018; none; stable. - Localization, quality and severity:Upright orthostatic imbalance / lightheadedness; sev ere to cause falls. - Duration:Constant in upright position. - Frequency and last one:Daily. - Associated symptoms:Weakness of legs, but no incontinence, or low back pain.No dyspha kamlesh, diplopia or shortness of breath. - Aggravating factors:Upright position. - Alleviating factors:Sitting down. - Previous record/diagnosis and treatment: Head CT from July 2019, age-related changes per report. Last visit: He stopped Flomax, symptoms are still the same, one fall with trauma to left le g. Possible cellulitis on Bactrim for that. Using a cane, not yet to physical therapy. CBC, CMP, CPK, TSH, B12 and folic acid showed mildly low glucose of 62 and mildly elevated BUN of 24. Since last visit: No falls since last visit. He stopped Flomax. Not yet to PT. - SPEP: Not done. - PT: Not yet. Past Medical History: Diagnosis Date Acid reflux disease Aortic valve regurgitation 2005 s/p AVR 07/2013 Arthritis neck Cataract bilateral COPD (chronic obstructive pulmonary disease) ([facility]) COPD (chronic obstructive pulmonary disease) ([facility]) Degenerative joint disease rt knee-replacement done Epidural abscess 2003 related to septic in low back region Hypertension Imbalance Melanoma ([facility]) 2009, 2010 x 3; 2 in head region and left nipple PANCHITO (obstructive sleep apnea) 09/2014 mild AHI 7.6, severe in supine sleep with AHI of 60.5; will bring in C-PAP Pneumonia 04/2013 several episodes, including as an infant Short-term memory loss at times 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 SOB (shortness of breath) on exertion Family History Problem Relation Age of Onset Cancer Mother pancreatic Hypertension Mother Other (see comment) Sister bronchiectasis, followed by a lung doctor in [facility] Maternal Grandfather Social History Socioeconomic History Marital status: Spouse name: Not on file Number of children: Not on file Years of education: Not on file Highest education level: Not on file Occupational History 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 Social Needs Financial resource strain: Not on file Food insecurity Worry: Not on file Inability: Not on file Transportation needs Medical: Not on file Non-medical: Not on file Tobacco Use Smoking status: Never Smoker Smokeless tobacco: Never Used Substance and Sexual Activity Alcohol use: Yes Alcohol/week: 0.0 standard drinks Types: 2 - 3 Glasses of wine per week Comment: Alcoholic Drinks/day: weekly Drug use: No Comment: Drug use: No Sexual activity: Not on file Lifestyle Physical activity Days per week: Not on file Minutes per session: Not on file Stress: Not on file Relationships Social connections Talks on phone: Not on file Gets together: Not on file Attends catholic service: Not on file Active member of club or organization: Not on file Attends meetings of clubs or organizations: Not on file Relationship status: Not on file Intimate partner violence Fear of current or ex partner: Not on file Emotionally abused: Not on file Physically abused: Not on file Forced sexual activity: Not on file Other Topics Concern Not on file Social History Narrative Lives: [place] With: his Grew up: [facility] Has previously lived in: [place], [place], born in [place] Exposure to toxic chemicals: possibly as a [...] Hobbies: golf, skiing in the past, gardening Past medical history, family history and social history were reviewed and updated as jan jarrett. Review of Systems No report of new general, or neurologic symptoms except to what mentioned in my HPI. Objective: Vitals: Vitals: 05/02/20 0821 BP: (!) 169/98 Pulse: 89 Resp: 16 PainSc: 0 - No pain General: Well developed, in no acute distress Speech: Is fluent with normal naming and repetition. Cognition: The patient is oriented to person, place, and time. Cranial Nerves: At this time, the pupils are equal, round, and reactive to light. Visual fi eld are ok. Extraocular movements are intact. Trigeminal sensation is intact. The face is sy mmetric. Voice is normal. Gait:Slow and wide based. Strength:Strength is 5-/5 in the upper and lower limbs(limitation left arm abduction, p ain). Light Touch/ pin prick:Impaired to above the ankles. Assessment: 1-Gait abnormalitywith infrequent falls, possibly due to #2, and #3 2-Neuropathy? 3-Orthostatic lightheadedness, medication related? No clear parkinsonism features. Plan: 1- The differential diagnosis and the necessary work up were discussed with the patient in detail. 2- I reviewed the available medical record and summarized it in my HPI. 3- We discussed the safety issues in detail including safe environment. Onerecentfalls. 4-For #1, and #2, physical exercises, referral to PT, SPEP, referral to cardiology for ti lt table test. 5- For #3, reasonable hydration, elastic stockings, and watch BP at home. Next step we may consider Midodrine or fludrocortisone if the tilt table test is positive (salt tablets did n ot help). 6-I covered with the patient all side effects of the regimen and the interaction with oth er medications (few of his medications can cause orthostatic symptoms). Patient understands and agrees to proceed with the regimen / plan. 7- Risk factors modification per PCP. RTC in2 months or prn. However, patient was instruc yeison to call with any concern, if symptoms are worsening, not improving or if any side effect s related to regimen. documented in this en counter Plan of Treatment +--------+ + + + + | Date | Type | Specialty | Care Team | Description | +--------+ + + + + | 06/23/ | Office | Cardiology | Rowdy Haines | | 2019 | Visit | | MD Gabriel Ricketts | | | | | | [address] | | | | | | [place] [address] | | | | | | [phone] | | | | | | | | +--------+ + + + + | 06/23/ | Procedure | Cardiology | | | | 2019 | visit | | | | +--------+ + + + + | 07/06/ | Office | Neurology | Dada Goodwin | | 2019 | Visit | | MD Gabriel SELLERS | | | | | | [address] | | | | | | [place] [address] | | | | | | [phone] | | | | | | | | +--------+ + + + + + +---------+--------+ + + | Name | Type | Priori | Associated Diagnoses | Order Schedule | | | | ty | | | + +---------+--------+ + + | CT Cervical Spine wo | Imaging | Routin | Weakness Falls | Expected: | | Contrast | | e | infrequently | 05/02/2020, Expires: | | | | | | 05/02/2021 | + +---------+--------+ + + | Protein | Lab | Routin | Neuropathy | 1 Occurrences | | Electrophoresis and | | e | | starting 05/02/2020 | | NASRA, Serum | | | | until 05/02/2021 | + +---------+--------+ + + + + +--------+ + + | Name | Type | Priori | Associated Diagnoses | Order Schedule | | | | ty | | | + + +--------+ + + | Ambulatory referral | Outpatient | Routin | Falls infrequently | Ordered: 05/02/2020 | | to Cardiology | Referral | e | Orthostatic | | | | | | lightheadedness | | + + +--------+ + + | Ambulatory referral | Outpatient | Routin | Weakness Falls | Ordered: 05/02/2020 | | to Physical Therapy | Referral | e | infrequently | | + + +--------+ + + documented as of this encounter Visit Diagnoses + + | Diagnosis | + + | Weakness - Primary Other malaise and fatigue | + + | Falls infrequently Personal history of fall | + + | Neuropathy Mononeuritis of unspecified site | + + | Orthostatic lightheadedness Orthostatic hypotension | + + documented in this encounter
--- OUTSIDE RECORDS SUMMARY | ~2020-06-20 | XMS | Encounter Summary ---
Demographics + + + | Address | [address] | | | [place] [address] | + + + | Home Phone | | + + + | Preferred Language | Unknown | + + + | Marital Status | | + + + | Jehovah'S Witness Affiliation | 1041 | + + + | Race | White | + + + | Ethnic Group | Not or | + + + Author + + + | Author | [facility] | | | and [place] | + + + | Organization | [facility] | | [...] [place] | | | | | [address] | | + + + + + | Scot Damico | ECON | [address] | | | | | [place] [address] | | + + + + + Care Team Providers + +------+ + | Care Patient Services Manager Name | Role | Phone | + +------+ + | Eileen Chatman MD | PCP | | + +------+ + Reason for Visit Auth/Cert +--------+--------+ + + + + | Status | Reason | Specialty | Diagnoses / | Referred By | Referred To | | | | | Procedures | Contact | Contact | +--------+--------+ + + + + | | | | Diagnoses | | [place], | | | | | Bradycardia | | Jacques Rodriguez MD | | | | | Procedures | | [address] | | | | | [address] | | [address] | | | | | ELECTROPHYS | | [place] | | | | | Theo [place]-V | | [place] | | | | | PACE/REC,W/O | | [id number] Phone: | | | | | INDUCT | | [phone] | +--------+--------+ + + + + Encounter Details +--------+---------+ + + + | Date | Type | Department | Care Team | Description | +--------+---------+ + + + | 04/13/ | Surgery | [facility] | Jacques Fernandez, | EP STUDY [facility] | | 2015 | | [facility] | [address] | ABLATION | | | | ELECTROPHYSIOLOGY | [facility] | | | | | [address] | [place] [address] | | | | | [place] | [phone] | | | | | [address] | | | | | | [phone] | | | +--------+---------+ + + + [...] + + + | Blood Pressure | 110/82 | 01/18/2016 1:40 PM | | | | | PDT | | + + + + + | Pulse | 63 | 01/18/2016 1:40 PM | | | | | PDT | | + + + + + | Temperature | 36.4 C (97.5 F) | 01/18/2016 9:48 AM | | | | | PDT | | + + + + + | Respiratory Rate | 17 | 01/18/2016 1:40 PM | | | | | PDT | | + + + + + | Oxygen Saturation | 98% | 01/18/2016 1:40 PM | | | | | PDT | | + + + + + | Inhaled Oxygen | - | - | | | Concentration | | | | + + + + + | Weight | 86.2 kg (190 lb) | 01/18/2016 9:49 AM | | | | | PDT | | + + + + + | Height | 172.7 cm (5' 8") | 01/18/2016 9:49 AM | | | | | PDT | | + + + + + | Body Mass Index | 27.92 | 01/18/2016 9:49 AM | | | | | PDT [...] + + documented as of this encounter Discharge Summaries Heidi Rao PA-C - 01/20/2016 9:20 AM PDT DISCHARGE SUMMARY [facility] PATIENT NAME/: Iraida Damico, (1935) DATE OF ADMISSION: 01/18/2016 DATE OF DISCHARGE: 01/20/2016 DISCHARGING MID-LEVEL: Heidi Araya PA-C DISCHARGING PHYSICIAN: Jacques Fernandez MD DISPOSITION: Discharge to home BRIEF HOSPITAL COURSE: Please see the history and physical at the time of admission. Briefly, Mr. Damico is a 80 y.o. male who was admitted on 01/18/2016 with AV block and syncope. The patient had an EP st udy that demonstrated high degree AV block and nonsustained ventricular tachycardia. He had an electrophysiology study as noted below and the following day a dual chamber pacer. He h ad a Medtronic pacemaker, model number [id number], serial number [id number]. The device looks great at discharge. He will be on antibiotics for one week and see primary care provider f or a wound check next week. MASTER PROBLEM LIST: Patient Active Problem List Diagnosis Date Noted POA NSVT (nonsustained ventricular tachycardia) 01/20/2016 Unknown Syncope 01/20/2016 Unknown Incomplete AV heart block 01/20/2016 Unknown Iron deficiency 08/08/2015 Unknown PANCHITO (obstructive sleep apnea) 10/17/2014 Unknown Pulmonary nodules 08/08/2014 Unknown S/P AVR (aortic valve replacement) 07/29/2014 Unknown COPD (chronic obstructive pulmonary disease) 07/29/2014 Unknown Hypertension Unknown Degenerative joint disease Unknown VITALS: Temp: 36.9 C (98.4 F) BP: 147/81 mmHg Pulse: 67 Resp: 18 SpO2: 93 % WEIGHT: Today's Weight: 83.3 kg (183 lb 10.3 oz) Admit Weight: 83.915 kg (185 lb) BRIEF EXAM TODAY: General Appearance - alert, in no distress Heart - regular rate and rhythm, S1 and S2 normal, no murmur, rub, or gallop. Lungs - clear to auscultation bilaterally Musc/Skel - moves all extremities Extremities - no significant edema Neurologic - no focal deficits CONSULTATION: none DIAGNOSTIC STUDIES: Imaging: EP device/study: 1. Electrophysiology study 01/18/16 DATE: 01/18/2016 PROCEDURE: EP study. PREOPERATIVE DIAGNOSIS: Electrophysiology study for syncope. POSTOPERATIVE DIAGNOSIS: Electrophysiology study for syncope. CHILD DEVELOPMENT INSTRUCTOR: Jacques Fernandez MD PROCEDURE: The patient presents to undergo an EP study. He has a history of recurrent lightheadedness, dizziness, and on the monitor showing intermittent high-degree AV block and nonsustained VT. FINDINGS: Baseline intervals show a mean cycle length of 1240 milliseconds, an AH of 15 0 milliseconds, and HV of 60 milliseconds. With straight atrial decremental pacing, Wencke bach block occurs at 570 milliseconds. The patient had a cycle length of 600 millisecond s. The AV douglas ERP is 460 milliseconds. Pacing at a cycle length of 500 millisecond s there are sequential nonconducted A complexes. Sinus node recovery time is abnormal at 6 50 milliseconds. Programmed electrical stimulation is performed in the ventricle at the apex and outflow t ract at cycle length 600, 500, 400 milliseconds. 1, 2, and 3 extrastimuli were used. U sing 3 extrastimuli, nonsustained polymorphic VT of 8 beats in duration and 12 beats in du ration is seen. CONCLUSIONS: 1. Abnormal sinus douglas function. 2. Abnormal AV douglas function, with intermittent high-degree AV block. 3. Nonsustaine d polymorphic VT induced, clinically insignificant. 2. PROCEDURE: DDD pacemaker placement for intermittent high-degree AV block that is no t reversible. CHILD DEVELOPMENT INSTRUCTOR: Jacques Fernandez MD. PROCEDURE: The patient presents with symptomatic bradyarrhythmias from intermittent hig h-degree AV block.Medtronic pacemaker, model number [id number], serial number [id number]. Device is seen to sense and pace both chambers. Selected Labs: Recent Labs Lab 01/18/16 0953 WBC 5.4 HGB 15.2 HCT 46.9 PLT 167 NA 140 K 4.3 BUN 19 CREA 0.89 GLU 103* CALCIUM 9.5 No results for input(s): TROPONIN, BNP, HDL, LDL, TRIG in the last 168 hours. Invalid input(s): CKTOTAL Lab Results Component Value Date CHOL 157 07/06/2013 TRIG 79 07/06/2013 HDL 39* 07/06/2013 LDL 102* 07/06/2013 MEDS: Discharge Medications New Medications Details doxycycline 100 mg capsule Take 1 capsule by mouth 2 times daily. aka: VIBRAMYCIN HYDROcodone-acetaminophen 5-325 mg per tablet Take 1 tablet by mouth every 6 hours as needed for Pain. aka: NORCO Unchanged Medications Details albuterol 90 mcg/puff inhaler Inhale 2 puffs into the lungs every 6 hours as needed for Wheezing. amLODIPine 5 mg tablet Take 5 mg by mouth Daily. aka: NORVASC ascorbic acid 500 mg tablet Take 500 mg by mouth Daily. aka: VITAMIN C aspirin 325 mg tablet Take 325 mg by mouth Daily. Cholecalciferol 2000 units Caps Take 2,000 Units by mouth Daily. aka: VITAMIN D-3 [facility] ANTI-DIARRHEAL 2 MG tablet Generic drug: loperamide Take 2 mg by mouth Daily. EXCEDRIN MIGRAINE PO Take 1 tablet by mouth as needed. omeprazole 20 mg capsule Take 20 mg by mouth Daily as needed. aka: priLOSEC pseudoePHEDrine 30 mg tablet Take 30 mg by mouth every 4 hours as needed for Congestion. aka: SUDAFED Respiratory Therapy Supplies [facility] S9 auto CPAP 9 cm H2O. Heater and Humidifier. All necessary supplies. AHI 7.6, 60. 5 in supine. Diagnosis Code(s)327.23. Length of Need 99 months. Please send order to [facility]. PATIENT INSTRUCTIONS: ACTIVITY: activity as tolerated DIET: cardiac diet FOLLOW-UP: Follow up with Jacques Fernandez MD in 3 months with a device interrogation. Follow up in 1 week with primary care provider for a wound check. Follow up with Dr. Mio Hughes in 1-2 months as needed. Time spent on discharge planning: less than 30 minutes Thank you for allowing [facility] to be involved in the care of this patient. Please call with any questions . Patient Care Team: Eileen Chatman as PCP - General (Internal Medicine) Mio Hughes MD as Physician (Cardiology) Irina Norton MD as Physician (Pulmonary Disease) Associated attestation - Jacques Fernandez MD - 01/23/2016 3:36 PM PDTFollow up arrangedd ocumented in this encounter Discharge Instructions Instructions Fany Bunn RN - 01/18/2016 Home Care Only do light and easy activities forthe next 2-3days. Ask for help with chores and errands while you recover. Have someone drive you to your appointments. Avoid heavy lifting, no more than 5-10 pounds, for two days. Ask your doctor when you can expect to return to work. Take your medications as directed. Do not skip doses. Drink6-8glasses of water a day. This is to help flush the contrast dye out of your b ray. Take your temperature each day for 7 days. Check your incisions daily for signs of infection. These include redness, swelling, and drainage. It is normal to have a small bruise or bump where the catheter was inserted. A bru ise that is getting larger is not normal and should be reported to your doctor. Eat a healthy diet. Make sure it is low in fat, salt, and cholesterol. Ask your doctor f or diet information. Stop smoking. Enroll in a stop-smoking program or ask your doctor for help. Exercise as advised by your doctor. Do not swim or take baths for 3 days. You can shower the day after the procedure. Do not drink alcohol, make any legal decisions, or drive for 24 hours after sedation. Follow-Up Make a follow-up appointment as advised by our staff. When to Call Your Doctor Call your doctor immediately if you have any of the following: Chest pain Constant or increasing pain or numbness in your leg Fever of 100.4F(38.0C) or higher Symptoms of infection (redness, swelling, drainage, or warmth at the incision site) Shortness of breath A leg that feels cold or appears blue Bleeding, bruising, or a lot ofswelling where the catheter was inserted Blood in your urine Black or tarry stools Any unusual bleeding [id number] [facility], [address] [place] [address], [place] [address]. All rights reserve d. This information is not intended as a substitute for professional medical care. Always fo llow your healthcare professional's instructions. documented in this encounter Medications at Time [...] capsule by | 14 | 0 | /15/20 | | | (VIBRAMYCIN) 100 mg | mouth 2 times daily. | capsule | | 16 | | | capsule | | | | | | + + + +---------+ + + | | Take 1 tablet by | 20 | 0 | /15/20 | | | HYDROcodone-acetamin | mouth every [...] + + documented as of this encounter H&P Notes Jacques Fernandez MD - 01/18/2016 11:52 AM Casandra Cassandra Damico is an 80-year-old male patient of Dr. Mio Hughes's referred for several presyncopal and a syncopal spell. Mr. Damico has a history of aortic valve disease, underwent aortic valve replacement for aor tic insufficiency. He has a history of hypertension. An echocardiogram done in 2014 showed preserved LV function, mild LVH. He is followed by a litigation specialist. He presents following several presyncopal and with bartolo syncopal spell. His syncope occur red while he was standing as well as all of his presyncopal spells, he'll notice he's gettin g lightheaded. He and his thought it might be their blood pressure medicine because th ey've been following his blood pressure at home and have noticed that it is on the low side of about 100 systolic. They have backed off on their blood pressure medicines and these sym ptoms have improved. However, because of his lightheaded spell, he had a prolonged monitor placed. The monitor is reviewed by me, it shows one episode of polymorphic VT of 6 seconds in duration at a mean rate of 180 bpm. He has sinus bradycardia, first and second degree AV block at times, and a suggestion of one type II second degree AV block. He had three symptomatic episodes durin g the prolonged monitoring and they were not related to any significant arrhythmias, a sinus bradycardia or ventricular ectopy is noted. The arrhythmias of concern were not symptomati c. Currently, he is on amlodipine 5 mg once a day. This patient was seen at [facility] [address], [place], [place] ; Contact . Active Problems FAINT (ICD-780.2) (PMT61-T88) VALVE REPLACEMENT (ICD-V43.3) (CSP45-X65.2) RHEUMATIC AORTIC VALVE DISEASE (ICD-395.9) (LVL52-X71.9) MURMUR, DIASTOLIC (ICD-785.2) (IFT05-T58.1) AORTIC VALVE REGURGITATION (ICD-424.1) (APO47-R63.1) HTN (ICD-401.9) (PES97-E90) * Problem list reviewed Current Meds Prior To This Update ASPIRIN EC 81 MG TBEC (ASPIRIN) 1 tablet by mouth daily AMLODIPINE BESYLATE 5 MG TABS (AMLODIPINE BESYLATE) 1 tablet by mouth daily PRILOSEC 20 MG CPDR (OMEPRAZOLE) 1 capsule by mouth as needed VITAMIN C 500 MG TABS (ASCORBIC ACID) 1 tablet by mouth daily VITAMIN D3 2000 UNIT CAPS (CHOLECALCIFEROL) 1 capsule by mouth daily TYLENOL EXTRA STRENGTH 500 MG TABS (ACETAMINOPHEN) 2 tablets by mouth daily as needed EXCEDRIN MIGRAINE 250-250-65 MG TABS (GMMOHWF-KTBHONWHSKWPW-DWPMUAWO) 1 tablet by mouth every 6 hours as needed ANTI-DIARRHEAL TABS (LOPERAMIDE HCL TABS) 1 tablet by mouth daily SUDAFED 30 MG TABS (PSEUDOEPHEDRINE HCL) 1 tablet by mouth daily as needed * Medication list reviewed * Medication list was verified with patient or authorized sales and marketing representative. * All medications have been entered as described by [facility] 68 Allergies and Intolerances LISINOPRIL cough * Allergies/intolerances reviewed Past, Family, and Social History Past History (reviewed - no changes required): Murmur Aortic regurgitation Hypertension Low back pain DJD Pneumonia, 03/19 Anemia . Surgeries/Procedures/Diagnostic Tests (reviewed - no changes required): Lumbar fusion AVR Cataracts, bilateral, done separately Tonsillectomy Adenoidectomy Right knee arthroscopy Epidural abscess: L3-4,L4-5 for laminectomy 2003 Right knee replacement, 11/27/05 Nuclear, 07/18 Echo EF=60%, 01/17 Cardiac Cath, 06/19 Teeth extraction, 2014 Spectocor, 11/22 Family History (reviewed - no changes required): Father: in his 50s from suicide Mother: in his 80s from hypertension and pancreatic cancer Brother(s): alive & well- hyperlipidemia Sister(s): 0 History of early onset ASHD (before age 65) in 1st degree female relative: Mother (biol.) - No History of early onset ASHD (before age 65) in 1st degree female relative: Sister (full) - No History of early onset ASHD (before age 65) in 1st degree female relative: Daughter (biol.) - No History of early onset ASHD (before age 55) in 1st degree male relative: Father (biol.) - N o History of early onset ASHD (before age 55) in 1st degree male relative: Brother (full) - N o History of early onset ASHD (before age 55) in 1st degree male relative: Son (biol.) - No Social History (reviewed - no changes required): , Jadyn. 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 Review of Systems Constitutional: Complains of: fatigue. Denies: fevers, chills, weight loss, sudden weight g ain. Eyes: Denies: blurring, double vision, vision loss, sudden vision loss. Ears/Nose/Throat: Denies: tinnitus, decreased hearing, nosebleeds, recent dental issues. Cardiovascular: Complains of: dizziness, peripheral edema. Denies: chest pains, palpitation s, syncope, presyncope, orthopnea, PND, claudication, DVT, vein problems, Raynaud's syndrome , hair loss. Respiratory: Complains of: dyspnea with exertion, dyspnea at rest. Denies: cough, excessive sputum, hemoptysis, wheezing, sleep apnea, snoring. Gastrointestinal: Denies: nausea, vomiting, diarrhea, constipation, abdominal pain, melena, reflux, polyps, hemorrhoids. Genitourinary: Denies: hematuria, dysuria, increased urinary frequency, urinary hesitancy, erectile dysfunction, incontinence, nocturia. Musculoskeletal: Denies: back pain, arthritis, muscle weakness, myalgias. Skin: Denies: rash, itching, suspicious lesions. Neurologic: Denies: transient paralysis, paresthesias, seizures, tremors, sciatica, balance problems, headache, memory impairment. Psychologic: Denies: anxiety, depression. Heme/Lymphatic: Denies: abnormal bruising, bleeding, enlarged lymph nodes. Endocrine: Denies: cold intolerance, heat intolerance, polydipsia, polyuria. Allergic/Immunologic: Denies: urticaria, hay fever, persistent infections. * I personally reviewed the Review of Systems. Risk Factors Tobacco use: former smoker Year quit smokin yrs ago Smoking pack-years: remote hx Smokeless tobacco use: never Passive smoke exposure: no Alcohol use: yes Average drink(s) per day: <1 Exercise (times/week): 4 Type of exercise: elliptical, weight Caffeine use (drinks/day): 4, coffee Drug use: none Vital Signs Ht: 172.72 cm (68 inches) Wt: 85.45 kg (188 pounds) Pulse: 70 bpm, regular Blood Pressure #1: 120/64 mmHg, adult cuff, left arm O2 Saturations Resting SpO2 (room air): 98% Calculations Body Mass Index: 28.69 Body Surface Area (m2): 1.99 Physical Exam Constitutional General appearance: elderly patient in no acute distress Cardiovascular Palp/Percussion: PMI in 5th ICS at [facility]; no lifts, thrills, palp S3 or S4. Auscultation: normal S1 S2 Murmur: Grade 2/6; systolic ejection murmur LSB. Carotid arteries: pulses 2+, symmetric, no bruits Jugular veins: no significant JVD; no a, v or hammer waves Femoral arteries: pulses 2+, symmetric Pedal pulses: pulses 2+, symmetric Peripheral circulation: no cyanosis, edema, or varicosities Gastrointestinal Abdomen: soft, non-tender, no palpable masses, normal bowel sounds Liver and spleen: no enlargement Neurological Orientation: oriented to time, place, and person Psychological Affect/Mood: no depression, anxiety, or agitation Respiratory Respiratory effort: no intercostal retractions or use of accessory muscles Auscultation: no rales, rhonchi, or wheezes Eyes Conjunctiva & lids: conjunctiva and lids normal Pupils: equal, round, reactive to light and accommodation Ears, Nose, Mouth, Throat Lips: no pallor or cyanosis Teeth/gums/palate: normal dental hygiene, no gingival inflammation Hearing: grossly intact Musculoskeletal Gait and station: normal without ataxia Muscle Strength: 5/5 bilaterally Skin Inspection: no visible rashes, lesions, or ulcerations Pertinent Medical Hx 1. Aortic insufficiency. a. 2004 to 2011 multiple echocardiograms showing moderate aortic insufficiency, left ventricular end diastolic dimension 6.1 cm, normal estimated PA pressure. b. 01/26/13 echocardiogram in [place] stating left ventricle is 64 mm at end diast ole, 47 mm at end systole, which is a significant increase from the year prior. c. 07/06/13 echocardiogram showing 5.7 cm LV at end diastole and 3.9 at end systole, m oderate regurgitation, preserved function. d. 07/08/13 aortic valve replacement with a Medtronic Gonzalez 2 valve, prior cath karine wed normal coronaries. 2. Hypertension. 3. Degenerative joint disease. 4. Status post laminectomy x2, chronic low back pain. Impression Problem Assessments FAINT (UBV26-J06) - deteriorated RHEUMATIC AORTIC VALVE DISEASE (SAP55-S03.9) - unchanged HTN (HYU60-Y07) - unchanged 1. Syncope and presyncope are likely secondary to orthostatic hypotension as demonstrated by the fact that all episodes have occurred while standing and are markedly improved with re duction in antihypertensive medications. 2. One run of nonsustained ventricular tachycardia for which he is asymptomatic in the set ting of aortic valve disease with normal LV function. 3. Sinus bradycardia with type I and possibly type II AV block. Plan It is my belief that his symptoms are not arrhythmogenic. However, he does have some signi ficant arrhythmias that need further evaluation. I explained to them and they seem to under stand that his symptoms are not from his arrhythmias but still his arrhythmias are of signif icant concern to warrant further evaluation. He will undergo an EP study in the immediate f uture. documented in this encounter Nursing Notes Geena Kelly, Technologist - 01/18/2016 12:04 PM PDTEXPOSURE REPORT PATIENT NAME: Iraida Damico : 1935 DOSES: 05603 mGy/cmDAP 434.9 mGy Air Kerma Yes Notified physician of fluoroscopy time per policy. 12:06 01/18/16 Geena Kelly Tech documented in this encounter Miscellaneous Notes Plan of Care - Jamarcus Cristobal Chaplain - 01/20/2016 2:34 PM PDTProblem: Spiritual Distr ess, Risk/Actual (Adult,Obstetrics,Pediatric) Goal: Spiritual Well-being Patient will demonstrate the desired outcomes by discharge/transition of care. Critical Info: A follow-up pastoral visit and means by which to reintroduce towel sorter and the availability of emotional and spiritual support. Action: No action required, as there were no expressed emotional or spiritual needs at this time, rather, our time together, albeit relatively br ief, felt like a healthy, spirited, meaningful and appreciated pastoral visit. Resources: My experience of this visit would suggest the primary source of hope, meaning, comfort, strength, peace, love and connection come largely through healthy and loving support systems along with confidence in our hospital and its commitment to healing and providing comfort. Evaluation: Although there were gentle opportunities to explore yessy and understanding, there were no forthcoming thoughts, feelings, confli cts or sentiments around yessy, faith or spirituality. Nor were there p articular requests or perceived needs from Spiritual Care from which to follo w-up. Overall, I perceived coping mechanisms as altogether positive and appropriate to context. Naturally, I remain available in any way th at may be helpful. lan of Care - Rebeca Cronin RN - 01/20/2016 11:24 AM PDTDischarge Note: PPM placed yesterday, Rt groi n soft, no hematoma noted. LSC site with gauze and Tegaderm, no drainage on dressing. Tyle nol relieving incisional pain. A-paced on tele, 1st deg HB noted, VSS. No CP, SOB or dizzin ess today. Pt and planning to stay at the [facility] until Saturday and then they will dri ve home. RX sent to our out pt pharmacy to be filled. AVS complete and pt and educate d on meds, follow up apts, ADL restrictions, and when to seek medical assistance. Questions answered at this time. All belongings bagged up and sent with pt. Electronically signed by: Rebeca Cronin RN 01/20/2016 11:28 lan of [facility] - Lisa Ma RN - 01/20/2016 4:55 AM PDTFormatting of this note might be different fro m the original. Problem: Patient Care Overview (Adult) Goal: Care Team Goals & Evaluation PROBLEM-RELATED GOALS: Pt will remain free of falls throughout hospital stay 01/19 Pt will call RN to get out of bed and prior to ambulation 01/19 Pt VSS will remain stable thoughout hospital stay 01/19 Pt will remain free of infection throughout hospital stay 01/19 STRATEGY TO ACHIEVE GOALS: Always call nurse to get out of bed Ensure call light is always in sight & reach, and that toileting device is within reach, pr ovide pt SBA Closely monitor VS, allow rest periods between position changes Continue good hand hygiene Outcome: Improving 6N / 6S Shift Summary Note Room # 652/652-01 Name: Iraida Damico [id number] Code Status: Unknown Isolation: None Dx/Tx: POD 2, PPM placement Surgery/ Procedure: Filed Vitals: 01/19/16 1517 01/19/16 1534 01/19/16 2029 01/20/16 0000 BP: 149/89 149/89 138/81 142/82 Pulse: 60 62 66 63 Temp: 36.8 C (98.2 F) 37.1 C (98.8 F) 36.9 C (98.4 F) TempSrc: Temporal Temporal Temporal Resp: Height: Weight: SpO2: 95% 93% 93% Shift Summary Information: Plan to DC 01.19 Neuro: Intact Resp: Clear/dim LDAs [employer] Cardiac: Sinus Rhythm: normal sinus rhythm (01/20/16 0000) Ventricular Rhythm: (paced) (01/18/16 1136) Conduction Defects: first degree AV block (01/20/16 0000) Active Gtts: Abnormal Labs/ Treatment: GI: Active Orders Diet Diet fat and cholesterol modified; Effective Now Last Bowel Movement: 01/18/16 (01/20/16 0000) : WDL Skin: (Incisions/ Wounds/ Edema) Left chest site - dressing c/d/i Pain: Denies Activity: Independent Therapy involved?: lan of Care - Debbie Oates RN - 01/19/2016 5:11 PM PDT Problem: Patient Care Overview (Adult) Goal: Care Team Goals & Evaluation PROBLEM-RELATED GOALS: Pt will remain free of falls throughout hospital stay 01/19 Pt will call RN to get out of bed and prior to ambulation 01/19 Pt VSS will remain stable thoughout hospital stay 01/19 Pt will remain free of infection throughout hospital stay 01/19 STRATEGY TO ACHIEVE GOALS: Always call nurse to get out of bed Ensure call light is always in sight & reach, and that toileting device is within reach, pr ovide pt SBA Closely monitor VS, allow rest periods between position changes Continue good hand hygiene Outcome: Improving 6N / 6S Shift Summary Note Room # 652/652-01 Name: Iraida Damico [id number] Code Status: Unknown Isolation: None Dx/Tx: Bradycardia Surgery/ Procedure: s/p PPM implant today 01/18 Filed Vitals: 01/19/16 1415 01/19/16 1454 01/19/16 1517 01/19/16 1534 BP: 140/70 149/71 149/89 149/89 Pulse: 65 60 60 62 Temp: 36.8 C (98.2 F) TempSrc: Temporal Resp: Height: Weight: SpO2: 96% 95% Shift Summary Information: Pt is s/p PPM today. A paced now 60-130. LSC incision site c/d/i , no pain or swelling. Recent EPS. Hx OHS 3 years ago, and recent near syncope/syncopal epis odes at home. Modified independence to bathroom. Denies any pain. VSS. Prophylactic IV Abx. at bedside. Plan to DC home tomorrow. Neuro: A&O Resp: Room air, denies any sob LDAs R PIV Cardiac: SR w/1st degree AVB. A paced 60-130 Sinus Rhythm: normal sinus rhythm (01/19/16 1535) Ventricular Rhythm: (paced) (01/18/16 1136) Conduction Defects: first degree AV block (01/19/16 1535) Active Gtts: Abnormal Labs/ Treatment: GI: Had BM yesterday Active Orders Diet Diet fat and cholesterol modified; Effective Now Last Bowel Movement: 01/18/16 (01/19/16 1535) : Voiding spontaneously, up to toilet Skin: (Incisions/ Wounds/ Edema) LSC PPM incision c/d/i, R groin site c/d/i Pain: denies Activity: SBA Therapy involved?: lan of Care - Bl y, Wen Bryant RN - 01/19/2016 2:54 PM PDTPt back from [facility] post PPM implant. LSC site intact w/tegaderm. No drainage noted on dressing. No s/s of edema. Lt radial pulse present. Pt den ies pain, SOB. Will continue to monitor per protocol. lan of Care - Wne Kimball RN - 01/19/2016 1:36 PM PDTForm atting of this note might be different from the original. Problem: Patient Care Overview (Adult) Goal: Care Team Goals & Evaluation PROBLEM-RELATED GOALS: Pt will remain free of falls throughout hospital stay 01/19 Pt will call RN to get out of bed and prior to ambulation 01/19 Pt VSS will remain stable thoughout hospital stay 01/19 Pt will remain free of infection throughout hospital stay 01/19 STRATEGY TO ACHIEVE GOALS: Always call nurse to get out of bed Ensure call light is always in sight & reach, and that toileting device is within reach, pr ovide pt SBA Closely monitor VS, allow rest periods between position changes Continue good hand hygiene Outcome: Improving 6N / 6S Shift Summary Note Room # 652/652-01 Name: Iraida Damico [id number] Code Status: Unknown Isolation: None Dx/Tx: syncope/pre-syncopal @ home Surgery/ Procedure: PPM implant 01/19/16 Filed Vitals: 01/19/16 1300 01/19/16 1305 01/19/16 1310 01/19/16 1315 BP: 129/72 132/68 138/69 135/64 Pulse: 61 61 60 60 Temp: TempSrc: Resp: 16 Height: Weight: SpO2: 95% 96% 96% 96% Shift Summary Information: Currently off the floor having a PPM implanted. Hx of syncope/pr e-syncope episodes @ home. Rt groin site intact post EPS 01/18/16. Bandaid removed today prio r to showering. Up w/SBA. Pt needs reminding to call for assist up. Hx of orthostatic hypote GEORGINA padilla 2012. Neuro: A/o but [place] Resp: WNL LDAs Lt arm PIV Cardiac: Sinus Rhythm: normal sinus rhythm (01/19/16 1225) Ventricular Rhythm: (paced) (01/18/16 1136) Active Gtts: Abnormal Labs/ Treatment: GI: Active Orders Diet Diet NPO; strict NPO; Effective Now Last Bowel Movement: 01/18/16 (01/19/16 0000) : Skin: (Incisions/ Wounds/ Edema) Pain: Activity: Therapy involved?: p Note - Do asuncion Fernandez MD - 01/19/2016 12:59 PM PDT [facility] [address] [address] OPERATIVE REPORT JACQUES FERNANDEZ MD Patient: IRAIDA DAMICO Admitting: JACQUES FERNANDEZ MR #: [id number] LOC: PT TYPE: Adm Date: 01/18/2016 : 1935 DATE: 01/19/2016. POSTOPERATIVE DIAGNOSIS: As below PROCEDURE: DDD pacemaker placement for intermittent high-degree AV block that is not reve rsible. CHILD DEVELOPMENT INSTRUCTOR: Jacques Fernandez MD. PROCEDURE: The patient presents with symptomatic bradyarrhythmias from intermittent high- degree AV block. The left subclavian area was prepped and draped in the usual sterile fash ion. Local anesthesia was accomplished with 1-percent lidocaine. There is continuous hear t rate, blood pressure, and saturation monitoring performed throughout the procedure. An infraclavicular incision is made with careful dissection down to the pectoralis fascia, where a pocket is formed. Bleeding is controlled. Using a needle and guidewire technique, the subclavian vein is introduced. Under fluoroscopic observation, a right ventricular mi d septal lead is placed and a right atrial appendage lead. The RV lead is a [employer] mod el number 5079-58, serial number [id number], screwed into the mid septum, sutured to the pe ctoralis fascia using 0 silk times 2. The R-wave is 8.6 millivolts. The pacing threshold i s 0.5 milliseconds at 1.0 volts at 1.1 MA with an impedance of 730 ohms. The atrial lead is a Medtronic model number 5076-52, serial number [id number], screwed into the right atria l appendage and sutured to the pectoralis fascia using 0 silk times 2. The A wave is 3.9 m illivolts. The pacing threshold is 0.5 milliseconds at 1.2 volts at 1.4 MA with an impedan ce of 774 ohms. There is no diaphragmatic stimulation from either lead. The leads are the n connected to a Medtronic pacemaker, model number [id number], serial number [id number]. Samreen rod is seen to sense and pace both chambers. The wound is irrigated with Ancef and closed us ing 2-0 Vicryl in a running layer, followed by a second 2-0 Vicryl layer and a 4-0 subcuti cular layer. The patient left the laboratory to obtain a chest x-ray. JACQUES FERNANDEZ MD Dictated by JACQUES FERNANDEZ MD 01/19/2016 12:59:15 Transcribed on 01/19/2016 14:03:18 by [facility] job# [id number] Confirmation #: [id number] cc: EILEEN CHATMAN MD TPlan of Frank - Nini Cheek RN - 01/19/2016 5:36 AM PDTFormatting of this note migh t be different from the original. Problem: Patient Care Overview (Adult) Goal: Care Team Goals & Evaluation PROBLEM-RELATED GOALS: Pt will remain free of falls throughout hospital stay 01/19 Pt will call RN to get out of bed and prior to ambulation 01/19 Pt VSS will remain stable thoughout hospital stay 01/19 Pt will remain free of infection throughout hospital stay 01/19 STRATEGY TO ACHIEVE GOALS: Always call nurse to get out of bed Ensure call light is always in sight & reach, and that toileting device is within reach, pr ovide pt SBA Closely monitor VS, allow rest periods between position changes Continue good hand hygiene Outcome: Unchanged Goal Evaluation: 6N / 6S Shift Summary Note Room # 652/652-01 Name: Iraida Damico [id number] Code Status: Unknown Isolation: None Dx/Tx: Syncopal/Pre-syncopal episodes Surgery/ Procedure: PPM placement scheduled for today (OR schedule time 1200) Filed Vital s: 01/18/16 1900 01/18/16 1921 01/19/16 0000 01/19/16 0439 BP: 154/87 133/77 151/77 Pulse: 60 66 69 Temp: 36.6 C (97.8 F) 37.2 C (99 F) 36.9 C (98.4 F) TempSrc: Temporal Temporal Temporal Resp: Height: Weight: 83.3 kg (183 lb 10.3 oz) SpO2: 94% 93% 92% Shift Summary Information: Pt experienced syncopal and near syncopal episodes at home, per MD note, it is thought that those syncopal/pre-syncopal episodes are r/t orthostatic hypoten khai and not pts cardiac arrhythmias. Although cardiac arrhythmias present pt has been admit yeison for a PPM insertion (procedure scheduled for today). NPO since midnight. Orhto VS stable . R groin site - WDL (band-aid in place, area is soft, no drainage, no hematoma). Pt is a SB A d/t previous syncopal/pre-syncopal episodes and reported dizziness. Sleep/rest promoted. N o pain reported. VSS. Pt appears comfortable. No significant changes noted. Neuro: A&O x4 Resp: WDL on RA LDAs L PIV - patent (saline locked) Cardiac: NSR Sinus Rhythm: normal sinus rhythm (01/19/16 0000) Active Gtts: Abnormal Labs/ Treatment: N/A GI: WDL; last BM 01/17 Active Orders Diet Diet fat and cholesterol modified; Effective Now Last Bowel Movement: 01/18/16 (01/19/16 0000) : WDL; urinal within reach, up to toilet w/ SBA Skin: (Incisions/ Wounds/ Edema) R groin site - WDL (band-aid in place, area is soft, no drainage, no hematoma) Pain: No pain reported Activity: SBA Therapy involved?: Electronically signed by: Nini Cheek RN 01/19/2016 5:35 lan of Care - Celestina Irizarry RN - 01/18/2016 10:52 PM PDTFormatting of this note might be different f rom the original. Problem: Patient Care Overview (Adult) Goal: Care Team Goals & Evaluation PROBLEM-RELATED GOALS: STRATEGY TO ACHIEVE GOALS: RESTRAINT-RELATED GOALS: STRATEGIES TO ACHIEVE RESTRAINT GOALS: Outcome: Unchanged Goal Evaluation: 6N / 6S Shift Summary Note Room # 652/652-01 Name: Iraida Damico [id number] Code Status: Unknown Isolation: None Dx/Tx: Presyncopal episodes, bradycardia Surgery/ Procedure: NPO at [place] for pacer tomorrow Filed Vitals: 01/18/16 1645 01/18/16 1715 01/18/16 1900 01/18/16 1921 BP: 137/72 151/81 154/87 Pulse: 60 59 60 Temp: 36.6 C (97.8 F) TempSrc: Temporal Resp: 06 30 18 Height: Weight: 83.3 kg (183 lb 10.3 oz) SpO2: 96% 94% Shift Summary Information: Neuro: A/O x4 Resp: RA LDAs L PIV Cardiac: Sinus Rhythm: normal sinus rhythm (01/18/16 1213) Ventricular Rhythm: (paced) (01/18/16 1136) Active Gtts: Abnormal Labs/ Treatment: N/A GI: WNL Active Orders Diet Diet fat and cholesterol modified; Effective Now : Voiding Skin: (Incisions/ Wounds/ Edema) R groin site WNL, bandaid in place Pain: Denies Activity: SBA Therapy involved?: N/A lan of Care - Fany Bunn RN - 01/18/2016 2:[address] Fernandez, pt is to be admitted for pac emaker. States he will be coming over to speak with pt and family. p Note - Jacques Fernandez MD - 01/18/2016 12: 30 PM PDT [facility] [address] [place] [id number] OPERATIVE REPORT JACQUES FERNANDEZ MD Patient: IRAIDA DAMICO Admitting: JACQUES FERNANDEZ MR #: [id number] LOC: PT TYPE: Adm Date: 01/18/2016 : 1935 DATE: 01/18/2016 PROCEDURE: EP study. PREOPERATIVE DIAGNOSIS: Electrophysiology study for syncope. POSTOPERATIVE DIAGNOSIS: Electrophysiology study for syncope. CHILD DEVELOPMENT INSTRUCTOR: Jacques Fernandez MD PROCEDURE: The patient presents to undergo an EP study. He has a history of recurrent li ghtheadedness, dizziness, and on the monitor showing intermittent high-degree AV block and nonsustained VT. Right femoral groin was prepped and draped in the usual sterile fashion. Local anesthesia was accomplished with 1 percent lidocaine. There was continuous heart ra te, blood pressure, and saturation monitoring. Using a needle and guidewire technique, 2 r ight femoral venous sheaths were placed. Catheters were positioned in the high right atriu m, His bundle region, and multiple sites in the right ventricle. Programmed electrical st imulation was performed in the atrium and ventricle. At the completion of the procedure, c atheters removed and hemostasis obtained. FINDINGS: Baseline intervals show a mean cycle length of 1240 milliseconds, an AH of 150 milliseconds, and HV of 60 milliseconds. With straight atrial decremental pacing, Wenckebac h block occurs at 570 milliseconds. The patient had a cycle length of 600 milliseconds. T he AV douglas ERP is 460 milliseconds. Pacing at a cycle length of 500 milliseconds there a re sequential nonconducted A complexes. Sinus node recovery time is abnormal at 650 millis econds. Programmed electrical stimulation is performed in the ventricle at the apex and outflow tr act at cycle length 600, 500, 400 milliseconds. 1, 2, and 3 extrastimuli were used. Using 3 extrastimuli, nonsustained polymorphic VT of 8 beats in duration and 12 beats in duratio n is seen. CONCLUSIONS: 1. Abnormal sinus douglas function. 2. Abnormal AV douglas function, with intermittent high-degree AV block. 3. Nonsustained p olymorphic VT induced, clinically insignificant. RECOMMENDATION: He will undergo pacer placement. JACQUES FERNANDEZ MD Dictated by JACQUES FERNANDEZ MD 01/18/2016 12:30:30 Transcribed on 01/18/2016 23:42:21 by [facility] [place] job# [id number] Confirmation #: [id number] cc: EILEEN CHATMAN MD Tdocumented in this encounter Plan of Treatment +--------+ + + + + | Date | Type | Specialty | Care Team | Description | +--------+ + + + + | 06/23/ | Office | Cardiology | Rowdy Haines | | 2019 | Visit | | MD Gabriel Ricketts | | | | | | [address] | | | | | | [place] [address] | | | | | | [phone] | | | | | | | [...] D | | | | | | [place] [address] | | | | | | [phone] | | | | | | | | +--------+ + + + + + + +--------+ + + | Name | Type | Priori | Associated Diagnoses | Date/Time | | | | ty | | | + + +--------+ + + | EP Study | Cardiac | Routin | | 01/18/2016 12:02 PM | | | Services | e | | PDT | + + +--------+ + + | EP Pacemaker | Cardiac | Routin | | 01/19/2016 4:55 PM | | Implant/Removal | Services | e | | PDT | + + +--------+ + + + + +--------+ + + | Name | Type | Priori | Associated Diagnoses | Order Schedule | | | | ty | | | + + +--------+ + + | EP Study | Cardiac | Routin | | One time imaging One | | | Services | e | | time imaging for 1 | | | | | | Occurrences starting | | | | | | 01/18/2016 until | | | | | | 01/18/2016 | + + +--------+ + + | EP Pacemaker | Cardiac | Routin | | One time imaging One | | Implant/Removal | Services | e | | time imaging for 1 | | | | | | Occurrences starting | | | | | | 01/19/2016 until | | | | | | 01/19/2016 | + + +--------+ + + documented as of this encounter Procedures + +--------+ + + + | Procedure Name | Priori | Date/Time | Associated Diagnosis | Comments | | | ty | | | | + +--------+ + + + | XR CHEST AP PORTABLE | Routin | 01/19/2016 | | Results for this | | | e | 1:35 PM | | procedure are in the | | | | PDT | | results section. | + +--------+ + + + | EP STUDY POSS | | 01/18/2016 | Bradycardia | | | ABLATION OR IMPLANT | | 10:51 AM | | | | ([id number]) | | PDT | | | + +--------+ + + + | EXTRA HOLD TUBE(S) | Routin | 01/18/2016 | | Results for this | | | e | 9:53 AM | | procedure are in the | | | | PDT | | results section. | + +--------+ + + + | CBC NO DIFFERENTIAL | Routin | 01/18/2016 | | Results for this | | | e | 9:53 AM | | procedure are in the | | | | PDT | | results section. | + +--------+ + + + | BASIC METABOLIC | Routin | 01/18/2016 | | Results for this | | PANEL | e | 9:53 AM | | procedure are in the | | | | PDT | | results section. | + +--------+ + + + documented in this encounter Results XR Chest AP Portable (01/19/2016 1:35 PM PDT) + + | Specimen | + + | | + + + + + | Narrative | Performed At | + + + | CHEST PORTABLE CLINICAL INFORMATION: Post cardiac device | [facility] | | procedure. COMPARISON: CHEST 2 VWS dated 07/13/2013; CHEST 1 VW | | | dated 07/09/2013; CHEST 1 VW dated 07/08/2013 FINDINGS: Heart, | | | lungs and vessels normal. No pneumothorax, pleural effusion or | | | adenopathy. No significant bone abnormality. Prior median | | | sternotomy. New left-sided dual-chamber pacemaker appears well | | | positioned based on this single image. IMPRESSION: Left-sided | | | dual-chamber pacemaker appears well positioned. Dictated by: | | | Elvira Gil Signed by: Elvira Gil | | + + + + + | Procedure Note | + + | Niles Recinos Results In - 01/19/2016 2:19 PM PDT | | | | CHEST PORTABLE | | | | CLINICAL INFORMATION: | | Post cardiac device procedure. | | | | COMPARISON: | | CHEST 2 VWS dated 07/13/2013; CHEST 1 VW dated 07/09/2013; CHEST 1 VW | | dated 07/08/2013 | | | | FINDINGS: | | Heart, lungs and vessels normal. No pneumothorax, pleural effusion or | | adenopathy. No significant bone abnormality. Prior median | | sternotomy. New left-sided dual-chamber pacemaker appears well | | positioned based on this single image. | | | | IMPRESSION: | | Left-sided dual-chamber pacemaker appears well positioned. | | | | Dictated by: Elvira Gil | | | | Signed by: Elvira Gil | + + + +---------+ + + | Performing | Address | City/State/Zipcode | Phone Number | | Organization | | | | + +---------+ + + | [facility] | | | | + +---------+ + + Extra Hold Tube(s) (01/18/2016 9:53 AM PDT) + + + + + + | Component | Value | Ref Range | Performed | Pathologist | | | | | At | Signature | + + + + + + | Extra Tube | BLUEComment: Performed | | [facility] | | | | at [facility] | | [facility] | | | | [facility] [place], | | HEART | | | | [address], [place] | | MEDICAL | | | | [address] | | CENTER | | | | | | LABORATORY | | + + + + + + + + | Specimen | + + | | + + + + + + + | Performing | Address | City/State/Zipcode | Phone Number | | Organization | | | | + + + + + | [facility] | [address] | [place] [address] | | | [facility] | | | | | LABORATORY | | | | + + + + + CBC no Differential (01/18/2016 9:53 AM PDT) + + + + + + | Component | Value | Ref Range | Performed | Pathologist | | | | | At | Signature | + + + + + + | White Blood | 5.4 | 3.8 - 11.0 K/uL | [facility] | | | Cells | | | [facility] | | | | | | HEART | | | | | | MEDICAL | | | | | | CENTER | | | | | | LABORATORY | | + + + + + + | Red Blood | 5.00 | 4.20 - 5.70 | [facility] | | | Cells | | M/uL | [facility] | | | | | | HEART | | | | | | MEDICAL | | | | | | CENTER | | | | | | LABORATORY | | + + + + + + | Hemoglobin | 15.2 | 13.2 - 17.0 | [facility] | | | | | g/dL | [facility] | | | | | | HEART | | | | | | MEDICAL | | | | | | CENTER | | | | | | LABORATORY | | + + + + + + | Hematocrit | 46.9 | 39.0 - 50.0 % | [facility] | | | | | | [facility] | | | | | | HE[facility] | | | | | | MEDICAL | | | | | | CENTER | | | | | | LABORATORY | | + + + + + + | MCV | 93.9 | 80.0 - 100.0 fL | [facility] | | | | | | [facility] | | | | | | [facility] | | | | | | MEDICAL | | | | | | CENTER | | | | | | LABORATORY | | + + + + + + | MCH | 30.4 | 27.0 - 34.0 pg | [facility] | | | | | | [facility] | | | | | | [facility] | | | | | | MEDICAL | | | | | | CENTER | | | | | | LABORATORY | | + + + + + + | MCHC | 32.4 | 32.0 - 35.5 | [facility] | | | | | g/dL | [facility] | | | | | | HEART | | | | | | MEDICAL | | | | | | CENTER | | | | | | LABORATORY | | + + + + + + | RDW-CV | 14.7 | 11.0 - 15.5 % | [facility] | | | | | | [facility] | | | | | | [facility] | | | | | | MEDICAL | | | | | | CENTER | | | | | | LABORATORY | | + + + + + + | Platelet | 167Comment: Verified by | 150 - 400 K/uL | [facility] | | | Count | slide review. | | [facility] | | | | | | HEART | | | | | | MEDICAL | | | | | | CENTER | | | | | | LABORATORY | | + + + + + + + + | Specimen | + + | Blood specimen | | (specimen) | + + + + + + + | Performing | Address | City/State/Zipcode | Phone Number | | Organization | | | | + + + + + | [facility] | [address] | [place] [address] | | | [facility] | | | | | LABORATORY | | | | + + + + + Basic Metabolic Panel (01/18/2016 9:53 AM PDT) + + + + + + | Component | Value | Ref Range | Performed | Pathologist | | | | | At | Signature | + + + + + + | Na | 140 | 135 - 145 | [facility] | | | | | mmol/L | [facility] | | | | | | HEART | | | | | | MEDICAL | | | | | | CENTER | | | | | | LABORATORY | | + + + + + + | K | 4.3Comment: Moderate | 3.5 - 5.0 | [facility] | | | | Hemolysis | mmol/L | [facility] | | | | | | HEART | | | | | | MEDICAL | | | | | | CENTER | | | | | | LABORATORY | | + + + + + + | Cl | 108 | 99 - 109 mmol/L | [facility] | | | | | | [facility] | | | | | | HE[facility] | | | | | | MEDICAL | | | | | | CENTER | | | | | | LABORATORY | | + + + + + + | CO2 | 27 | 21 - 28 mmol/L | [facility] | | | | | | [facility] | | | | | | HE[facility] | | | | | | MEDICAL | | | | | | CENTER | | | | | | LABORATORY | | + + + + + + | Glucose | 103 (H)Comment: Guyanese | 65 - 99 mg/dL | [facility] | | | | Diabetes Association | | [facility] | | | | diagnostic categories | | HEART | | | | for non adults: | | MEDICAL | | | | Impaired fasting | | CENTER | | | | glucose 100 to 125 | | LABORATORY | | | | mg/dL. A fasting | | | | | | glucose result of 126 | | | | | | mg/dL or greater | | | | | | indicates diabetes if | | | | | | the abnormality is | | | | | | confirmed on a | | | | | | subsequent day. A | | | | | | random glucose result of | | | | | | greater than 200 mg/dL | | | | | | indicates diabetes if | | | | | | the abnormality is | | | | | | confirmed on a | | | | | | subsequent day. | | | | + + + + + + | BUN | 19 | 8 - 25 mg/dL | [facility] | | | | | | [facility] | | | | | | HE[facility] | | | | | | MEDICAL | | | | | | CENTER | | | | | | LABORATORY | | + + + + + + | Creatinine | 0.89Comment: IDMS | 0.70 - 1.30 | [facility] | | | | traceable creatinine | mg/dL | [facility] | | | | | | HEART | | | | | | MEDICAL | | | | | | CENTER | | | | | | LABORATORY | | + + + + + + | Calcium | 9.5 | 8.5 - 10.2 | [facility] | | | | | mg/dL | [facility] | | | | | | HEART | | | | | | MEDICAL | | | | | | CENTER | | | | | | LABORATORY | | + + + + + + | Anion Gap | 5 | 5 - 16 mmol/L | [facility] | | | | | | [facility] | | | | | | HE[facility] | | | | | | MEDICAL | | | | | | CENTER | | | | | | LABORATORY | | + + + + + + | Estimated | >60Comment: GFR <60: | >60 | [facility] | | | GFR | Chronic kidney disease, | ml/min/1.73m2 | [facility] | | | | if found over a 3 month | | HEART | | | | period.GFR <15: Kidney | | MEDICAL | | | | failure.For | | CENTER | | | | Americans, multiply the | | LABORATORY | | | | calculated GFR by | | | | | | 1.210Performed at | | | | | | [facility] | | | | | | [facility], [address] | | | | | [address] [address] | | | | + + + + + + + + | Specimen | + + | Blood specimen | | (specimen) | + + + + + + + | Performing | Address | City/State/Zipcode | Phone Number | | Organization | | | | + + + + + | [facility] | [address] | [place] [address] | | | [facility] | | | | | LABORATORY | | | | + + + + + documented in this encounter Visit Diagnoses + + | Diagnosis | + + | Bradycardia Other specified cardiac dysrhythmias | + + documented in this encounter Administered Medications + +--------+ +--------+------+------+ | Medication Order | MAR | Action | Dose | Rate | Site | | | Action | Date | | | | + +--------+ +--------+------+------+ | acetaminophen (TYLENOL) tablet | Given | 01/20/20 | 650 mg | | | | 650 mg 650 mg, Oral, EVERY 6 | | 16 7:37 | | | | | HOURS PRN, Pain, Fever, Starting | | AM PDT | | | | | Katie 01/19/16 at 1509, | | | | | | | Post-op/Phase II | | | | | | + +--------+ +--------+------+------+ +---+---+ | | | +---+---+ + +-------+ +------+---+---+ | amLODIPine (NORVASC) tablet 5 | Given | 01/20/20 | 5 mg | | | | mg 5 mg, Oral, DAILY, First dose | | 16 8:45 | | | | | on Sat01/18/16 at 1215 | | AM PDT | | | | + +-------+ +------+---+---+ +-------+ +------+---+---+ | Given | 01/19/20 | 5 mg | | | | | 16 8:27 | | | | | | AM PDT | | | | +-------+ +------+---+---+ +---+---+ | | | +---+---+ + +---------+ +-----+-------+---+ | ceFAZolin (ANCEF, KEFZOL) 1 g | New Bag | 01/20/20 | 1 g | 100 | | | in sodium chloride 0.9% 50 mL | | 16 8:46 | | mL/hr | | | IVPB 1 g, Intravenous, | | AM PDT | | | | | Administer over 30 Minutes, EVERY | | | | | | | 12 HOURS (2 times per day), | | | | | | | First dose on Sat01/20/16 at | | | | | | | 0000, For 2 doses, Activate | | | | | | | system and mix before use., | | | | | | | Post-op/Phase II, Indications: | | | | | | | Surgical Prophylaxis | | | | | | + +---------+ +-----+-------+---+ +---------+ +-----+-------+---+ | New Bag | 01/19/20 | 1 g | 100 | | | | 16 11:46 | | mL/hr | | | | PM PDT | | | | +---------+ +-----+-------+---+ +---+---+ | | | +---+---+ + +-------+ +-----+---+---+ | ceFAZolin (ANCEF, KEFZOL) | Given | 01/19/20 | 2 g | | | | injection PRN, Starting Katie | | 16 12:19 | | | | | 01/19/16 at 1219 | | PM PDT | | | | + +-------+ +-----+---+---+ +---+---+ | | | +---+---+ + +-------+ +--------+---+---+ | fentaNYL injection | Given | 01/18/20 | 25 mcg | | | | Intravenous, PRN, Starting Wed | | 16 11:24 | | | | | 01/18/16 at 1047, Intra-op | | AM PDT | | | | + +-------+ +--------+---+---+ +-------+ +--------+---+---+ | Given | 01/18/20 | 25 mcg | | | | | 16 11:00 | | | | | | AM PDT | | | | +-------+ +--------+---+---+ | Given | 01/18/20 | 50 mcg | | | | | 16 10:47 | | | | | | AM PDT | | | | +-------+ +--------+---+---+ +---+---+ | | | +---+---+ + +-------+ +--------+---+---+ | fentaNYL injection | Given | 01/19/20 | 25 mcg | | | | Intravenous, PRN, Starting Katie | | 16 1:04 | | | | | 01/19/16 at 1220, Intra-op | | PM PDT | | | | + +-------+ +--------+---+---+ +-------+ +--------+---+---+ | Given | 01/19/20 | 25 mcg | | | | | 16 12:44 | | | | | | PM PDT | | | | +-------+ +--------+---+---+ | Given | 01/19/20 | 50 mcg | | | | | 16 12:29 | | | | | | PM PDT | | | | +-------+ +--------+---+---+ +---+---+ | | | +---+---+ + +-------+ +--------+---+ + | iohexol (OMNIPAQUE 300) 300 | Given | 01/19/20 | 15 mLs | | Left Arm | | mg/mL injection PRN, Starting | | 16 12:31 | | | | | Katie 01/19/16 at 1231 | | PM PDT | | | | + +-------+ +--------+---+ + +---+---+ | | | +---+---+ + +-------+ +--------+---+---+ | lidocaine 1% injection PRN, | Given | 01/19/20 | 30 mLs | | | | Starting Katie 01/19/16 at 1240 | | 16 12:40 | | | | | | | PM PDT | | | | + +-------+ +--------+---+---+ +---+---+ | | | +---+---+ + +-------+ +--------+---+---+ | midazolam (VERSED) 1 mg/mL | Given | 01/18/20 | 0.5 mg | | | | injection Intravenous, PRN, | | 16 11:43 | | | | | Starting 01/18/16 at 1047 | | AM PDT | | | | + +-------+ +--------+---+---+ +-------+ +--------+---+---+ | Given | 01/18/20 | 0.5 mg | | | | | 16 11:24 | | | | | | AM PDT | | | | +-------+ +--------+---+---+ | Given | 01/18/20 | 0.5 mg | | | | | 16 11:00 | | | | | | AM PDT | | | | +-------+ +--------+---+---+ +---+---+ | | | +---+---+ + +-------+ +--------+---+---+ | midazolam (VERSED) 1 mg/mL | Given | 01/19/20 | 0.5 mg | | | | injection Intravenous, PRN, | | 16 1:04 | | | | | Starting [facility] 01/19/16 at 1219 | | PM PDT | | | | + +-------+ +--------+---+---+ +-------+ +------+---+---+ | Given | 01/19/20 | 1 mg | | | | | 16 12:42 | | | | | | PM PDT | | | | +-------+ +------+---+---+ | Given | 01/19/20 | 1 mg | | | | | 16 12:29 | | | | | | PM PDT | | | | +-------+ +------+---+---+ +---+---+ | | | +---+---+ + +-------+ +-------+---+---+ | omeprazole (priLOSEC) DR | Given | 01/20/20 | 20 mg | | | | capsule 20 mg 20 mg, Oral, 2 | | 16 6:40 | | | | | TIMES DAILY BEFORE MEALS, First | | AM PDT | | | | | dose on Sat01/18/16 at 1630 | | | | | | + +-------+ +-------+---+---+ +-------+ +-------+---+---+ | Given | 01/19/20 | 20 mg | | | | | 16 4:52 | | | | | | PM PDT | | | | +-------+ +-------+---+---+ | Given | 01/19/20 | 20 mg | | | | | 16 8:27 | | | | | | AM PDT | | | | +-------+ +-------+---+---+ +---+---+ | | | +---+---+ + +---------+ +---+ +---+ | sodium chloride 0.9% (NS) | New Bag | 01/18/20 | | 10 mL/hr | | | infusion at 10 mL/hr, | | 16 10:05 | | | | | Intravenous, FABRICATION ENGINEER, Starting | | AM PDT | | | | | 01/18/16 at 0920, For 1 dose, | | | | | | | Pre-op | | | | | | + +---------+ +---+ +---+ +---+---+ | | | +---+---+ documented in this encounter
--- OUTSIDE RECORDS SUMMARY | ~2020-06-20 | XMS | Encounter Summary ---
Demographics + + + | Address | [address] | | | [place] [address] | + + + | Home Phone | | + + + | Preferred Language | Unknown | + + + | Marital Status | | + + + | Caodaism Affiliation | 1041 | + + + | Race | White | + + + | Ethnic Group | Not or | + + + Author + + + | Author | [facility] | | | and [place] | + + + | Organization | [facility] | | [...] [place] | | | | | [address] | | + + + + + | Scot Damico | ECON | [address] | | | | | [place] [address] | | + + + + + Care Team Providers + +------+ + | Care Starch Cooker Name | Role | Phone | + +------+ + | Ralph Chatman MD | PCP | | + +------+ + Reason for Visit + + + | Reason | Comments | + + + | Breathing Problem | PANCHITO f/u | + + + Encounter Details +--------+---------+ + + + | Date | Type | Department | Care Team | Description | +--------+---------+ + + + | 02/03/ | Office | [facility] [place] | [place], | PANCHITO (obstructive | | 2014 | Visit | PULMONARY [address] | Irina Sofia MD | sleep apnea) | | | | [place], | | (Primary Dx); COPD | | | | [place] [address] | | (chronic obstructive | | | | [phone] | | pulmonary disease) | | | | | | (HCC); Pulmonary | | | | | | nodules | +--------+---------+ + + + Social History [...] + + + | Blood Pressure | 138/80 | 02/03/2015 1:17 PM | | | | | PDT | | + + + + + | Pulse | 55 | 02/03/2015 1:17 PM | | | | | PDT | | + + + + + | Temperature | - | - | | + + + + + | Respiratory Rate | 14 | 02/03/2015 1:17 PM | | | | | PDT | | + + + + + | Oxygen Saturation | 96% | 02/03/2015 1:17 PM | room air | | | | PDT | | + + + + + | Inhaled Oxygen | - | - | | | Concentration | | | | + + + + + | Weight | 84.1 kg (185 lb 6.4 | 02/03/2015 1:17 PM | | | | oz) | PDT | | + + + + + | Height | 170.2 cm (5' 7") | 02/03/2015 1:17 PM | | | | | PDT | | + + + + + | Body Mass Index | 29.04 | 02/03/2015 1:17 PM | | | | | PDT | | + + + + + documented in this encounter Patient Instructions Patient Instructions Irina Norton MD - 02/03/2015 1:53 PM PDTI would make sure t hat your humidity is turned up to close to the maximum. Make a tent for the vent hole with a strip of paper and a piece of taper and see if this he lps with the dry eyes. Also try over the counter drops for the dry eyes to see if this helps . If neither of these helps the watery eyes, then we can set you up for a mask fit appointme nt to see if the leaking reduces. Keep doing what you are doing in terms of exercise, but I would be careful lifting really h eavy things! You are just short of meeting of compliance. The main thing I want you to focus on is not t aking the CPAP off part way through the night. documented in this encounter Progress Notes Irina Norton MD - 02/03/2015 1:15 PM PDTFormatting of this note might be differe nt from the original. Sleep Follow Up HPI Iraida Steve Damico is a 79 y.o. male patient of Ralph Chatman here today for follo w up of PANCHITO and COPD. He notes that he has been wearing their CPAP. Their compliance has been fair. He notes that he hates the mask as he feels like a dog wearing a muzzle. He started out on a nasal mask, but he got a cold, and that didn't work as he could not breathe through his nose. He is now on a full face mask, which he can breathe on better, but he dislikes having this on his face . His though thinks he sleeps better with the full face mask than with the nasal mask, which he attributes to having only been on the nasal mask for the first few nights. He does feel like overall it is going better. They are having nasal congestion. He does not know what he has the humidity set at, but he has noted that the water tank will empty out about every other day. He typically goes to bed 10-10:30pm, and is waking up at 6:30am. He is waking up twice a ni ght. He is not wearing the machine the entire night. He takes the CPAP machine off part way through the night and goes back to sleep without it on. He feels like he does not sleep as w ell with the machine on. His thinks he sleeps like a baby when he has it on, and he see ms more rested since using it. He is not having any snoring. They have noted his eyes are irritated in the last week. They are watering more often. He remains on the Symbicort twice daily. He has been trying to do a little more stair climb ing and weight lifting. He does not think he can yet do any more stair climbing without gett ing short of breath. He has been doing more yard work. He still gets short of breath when he lifts heavy objects and carries them. Yesterday he was lifting some 50 pound railroad ties and carrying them a short distance 8-10 yards to the back of a truck. 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 Ceballos Knee arthroscopy 2002 Right Total knee arthroplasty 2006 Right Skin cancer excision 2009, 2010 Cardiac catherization 07/06/2013 EF 60-65% and normal coronaries Transesophageal echocardiogram 03/30/2014 Laterality: N/A; Surgeon: Theo Garza MD; Location[facility] Social History: History Social History Marital [...] Narrative Lives: [place] With: his Grew up: [facility] Has previously lived in: [place], [place], born in [place] Exposure to toxic chemicals: possibly as a [...] Cough Medications: Outpatient Encounter Prescriptions as of 02/03/2015 Medication Sig Dispense Refill acetaminophen (TYLENOL) 500 [...] morning (before breakfast ). Respiratory Therapy Supplies [facility] S9 auto CPAP 9 cm H2O. Heater and Humidifier. All necessary supplies. AHI 7.6, 60.5 in supine. Diagnosis Code(s)327.23. Length of Need 99 months. Please send order to [facility]. 1 each 99 No facility-administered encounter medications on file as of 02/03/2015. Review of Systems: General: []Weight loss/gain (over [...] urination []Difficulty wit h urination Objective BP 138/80 | Pulse 55 | Resp 14 | Ht 1.702 m (5' 7") | Wt 84.097 kg (185 lb 6.4 oz) | BMI 29 .03 kg/m2 | SpO2 96% General Appearance: Alert, cooperative, no distress, appears stated age Head: Normocephalic, without obvious abnormality, atraumatic Eyes: PERRL, conjunctiva clear, no scleral icterus, EOM's intact Ears: Normal TM's, external auditory canals, normal acuity Nose: Nares normal, septum midline, mucosa edematous Mouth: No oral lesions or exudate Neck: Supple, symmetrical, no adenopathy Lungs: No accessory muscle use, breath sounds are slightly diminished bilaterally, no whe ezes, crackles or rhonchi Chest Wall: No deformity Heart: Regular rate and rhythm, no murmur, rub or gallop Abdomen: Soft, non-tender, non-distended Extremities: No cyanosis, clubbing, or edema Pulses: Radial pulses 2+ and symmetric Skin: Warm and dry Lymph nodes: Cervical and supraclavicular nodes normal CPAP Data: Dates: 01/18/15- Machine type: ResMed AirSense 10 [facility] Company: [facility] CPAP Pressure: 9 cmH2O AHI: 3.6 events/hour Total number of days: 15 Number of days used: 15 Median daily usage: 4:31 hours Percent of days used for more than 4 hours: 67 % Median leak: 6.2 L/min Immunization History Administered Date(s) Administered INFLUENZA, >= 4YO W/PRESERVATIVE IM 07/07/2013 INFLUENZA, TRIVALENT PRESERVATIVE FREE (PED/ADOL/ADULT) 06/21/2014 ZOSTER, 1 DOSE (ADULT) 07/07/2012 Assessment 1. PANCHITO (obstructive sleep apnea) - Control is steadily improving with ongoing usage. His co mpliance is fair. He felt he only needed to use it for 4 hours, so has been taking it off pa rt way through the night. I discussed that the insurance requires a certain usage, but we wa nt him to use it the entire night, and he is not meeting insurance requirements at this poin t. He will work at this. He is more motivated after talking to friends who have had success. His also notes he sleeps much better and seems less tired. 2. COPD (chronic obstructive pulmonary disease) (HCC) - Mild disease. He is on treatment an d his functional status is actually improved and excellent for his age. I pointed out that m ost 79 year olds cannot carry a 50 pound railroad tie 10 yards. I suggested that he may need to alter his expectations some, as he is now very active and operating at a high level of f itness, but does not need to hurt himself by overdoing it. 3. Pulmonary nodules - Due for repeat chest CT in July 2015. Plan 1.Continue CPAP on current settings. 2.I suggested that he try adjusting the humidity to close to the maximum. 3.Make a tent for his vent hole, and try drops for the eye irritation. 4. Keep exercising. 5. Use CPAP the entire night. 6. Continue Symbicort twice daily. Return to clinic in late February or early March, or sooner with concerns. 25 minutes were spent with Mr. Damico and his with greater than 50% spent in counseling and coordination of care. CC: Ralph Chatman Portions of this report were transcribed using voice recognition software. Every effort wa s made to ensure accuracy; however, inadvertent computerized radar repairer errors may be pre sent. documented in [...] [address] | | | | | | [place] [address] | | | | | | [phone] | | | | | | | [...] D | | | | | | [place] [address] | | | | | | [phone] | | | | | | | | +--------+ + + + + documented as of this encounter Visit Diagnoses + + | Diagnosis | + + | PANCHITO (obstructive sleep apnea) - Primary Obstructive sleep apnea (adult) (pediatric) | + + | COPD (chronic obstructive pulmonary disease) (HCC) Chronic airway obstruction, not | | elsewhere classified | + + | Pulmonary nodules Other nonspecific abnormal finding of lung field | + + documented in this encounter
--- OUTSIDE RECORDS SUMMARY | ~2020-06-20 | XMS | Encounter Summary ---
Demographics + + + | Address | [address] | | | [place] [address] | + + + | Home Phone | | + + + | Preferred Language | Unknown | + + + | Marital Status | Single | + + + | Orthodoxy Affiliation | CAT | + + + [...] Team Providers + +------+ + | Care Sensitized Paper Tester Name | Role | Phone | + [...] Clinic Dermatology | | | | | [facility] | [address] [facility] | | | | | and Healing, | [place] | | | | | [facility] | [address] | | | | | Floor [place], [place] | | | | | | [address] | | | | | | [phone] | | | +--------+ + + + [...] patchy | | | | | | qlck-fipid-gojbr skin, | | | | | | [...] + | [facility] | [address] | [place] [address] | | | DERMATOPATHOLOGY | [address] | | | + + + + + | [facility] | [address] | [place] [address] | | | DERMATOPATHOLOGY | [address] | | | + + + + + documented in this encounter Visit Diagnoses + + | Diagnosis | + + | Neoplasm of uncertain behavior of skin | + + documented in this encounter
--- OUTSIDE RECORDS SUMMARY | ~2020-06-20 | XMS | Encounter Summary ---
Demographics + + + | Address | [address] | | | [place] [address] | + + + | Home Phone | | + + + | Preferred Language | Unknown | + + + | Marital Status | Single | + + + | Confucianism Affiliation | CAT | + + + | Race | White | + + + | Ethnic Group | Not or | + + + Author + + + | Author | [facility] | + + + | Organization | [facility] | + + + | Address | Unknown | + + + | Phone | Unavailable | + + + Support + + +---------+ + | Name | Relationship | Address | Phone | + + +---------+ + | Elizabeth Damico | ECON | Unknown | | + + +---------+ + Care Team Providers + +------+ + | Care Pop Singer Name | Role | Phone | + +------+ + PCP | Unavailable | + +------+ + Encounter Details +--------+ + + + + | Date | Type | Department | Care Team | Description | +--------+ + + + + | 07/05/ | Hospital | Dermatopathology | | | | 2013 | Encounter | [address] | | | | | | Mailcode: CH16D | | | | | | [place] for [facility] | | | | | | and Healing, | | | | | | [facility], [facility] | | | | | | [place], [place] | | | | | | [address] | | | | | | [phone] | | | +--------+ + + + [...] + + documented as of this encounter Miscellaneous Notes Scan - Shawn Faculty - 07/29/2014 3:54 PM PDTElectronically signed by Faculty Other at 3:54 PM PDTScan - Shawn Faculty - 07/29/2014 3:54 PM PDT documented in this encounter Plan of Treatment Not on filedocumented as of this encounter Procedures + +--------+ + + + | Procedure Name | Priori | Date/Time | Associated Diagnosis | Comments | | | ty | | | | + +--------+ + + + | DERM PATHOLOGY | Routin | 07/05/2014 | | Results for this | | | e | | | procedure are in the | | | | | | results section. | + +--------+ + + + documented in this encounter Results DERM PATHOLOGY (07/05/2014) + + + + + + | Component | Value | Ref Range | Performed | Pathologist | | | | | At | Signature | + + + + + + | DERMATOPATH | SOURCE OF SPECIMEN:A | | [facility] | | | OLOGY(WET | Back, shave biopsySOURCE | | DERMATOPATH | | | [facility]) | OF SPECIMEN:B Rt. neck, | | OLOGY | | | | shave biopsy | | | | | | CLINICAL DESCRIPTION:A: | | | | | | Crayne patch; r/o BCC.B: | | | | | | Irreg. shaped pigmented | | | | | | patch; flat SK, solar | | | | | | lentigo; r/o melanoma; | | | | | | hx.of 3 prior melanomas | | | | | | elsewhere on body. | | | | | | GROSS | | | | | | DESCRIPTION:Received in | | | | | | formalin are two | | | | | | specimens labeled Damico, | | | | | | Yifan:A: Specimen is | | | | | | labeled "A: Back" and | | | | | | consists of an irregular | | | | | | shave of pinkskin, | | | | | | [id number]. The surgical | | | | | | margin is inked black; | | | | | | the tissue | | | | | | isquadrisected, and | | | | | | entirely submitted in | | | | | | cassette A1.B: Specimen | | | | | | is labeled "B: Rt neck" | | | | | | and consists of an | | | | | | irregular shave ofbrown | | | | | | skin, [id number]. The | | | | | | surgical margin is inked | | | | | | black; the tissue | | | | | | isserially sectioned, | | | | | | and entirely submitted | | | | | | in cassette B1. | | | | | | MICROSCOPIC | | | | | | DESCRIPTION:A: There is | | | | | | epidermal hyperplasia | | | | | | with interweaving of the | | | | | | rete and nucleiof | | | | | | uniform size and shape. | | | | | | B: There is slight | | | | | | hyperplasia of the rete | | | | | | ridges with | | | | | | hyperpigmentationalong | | | | | | the basal layer and | | | | | | solar elastosis. 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 | | | | | | NOTE: There is no | | | | | | evidence of basal cell | | | | | | carcinoma in these | | | | | | sections. B: SOLAR | | | | | | LENTIGO. NOTE: | | | | | | There is no evidence of | | | | | | a melanocytic neoplasm | | | | | | in these sections. | | | | | | My electronic signature | | | | | [...] Diagnostician: | | | | | | Roseanne David | | | | | | IsidoroPathologistElectroni | | | | | | natalie Signed 07/08/2014 | | | | | | 12:07PM | | | | + + + + + + + + | Specimen | + + | | + + + + + + + | Performing | Address | City/State/Zipcode | Phone Number | | Organization | | | | + + + + + | [facility] | [address] | [place] [address] | | | DERMATOPATHOLOGY | [address] | | | + + + + + | [facility] | [address] | [place] [address] | | | DERMATOPATHOLOGY | [address] | | | + + + + + documented in this encounter Visit Diagnoses Not on filedocumented in this encounter
--- OUTSIDE RECORDS SUMMARY | ~2020-06-20 | XMS | Encounter Summary ---
Demographics + + + | Address | [address] | | | [place] [address] | + + + | Home Phone | | + + + | Preferred Language | Unknown | + + + | Marital Status | | + + + | Spiritism Affiliation | 1041 | + + + | Race | White | + + + | Ethnic Group | Not or | + + + Author + + + | Author | [facility] | | | and [place] | + + + | Organization | [facility] | | | [...] [place] | | | | | [address] | | + + + + + | Scot Damico | ECON | [address] | | | | | [place] [address] | | + + + + + Care Team Providers + +------+ + | Care Ophthalmic Technician Apprentice Name | Role | Phone | + +------+ + | Ralph Chatman MD | PCP | | + +------+ + Reason for Visit +---------+--------+ + | Reason | Onset | Comments | | | Date | | +---------+--------+ + | Results | 07/30/ | [facility] 05/20/14 results | | | 2013 | | +---------+--------+ + Encounter Details +--------+ + + + + | Date | Type | Department | Care Team | Description | +--------+ + + + + | 07/30/ | Telephone | [facility] [place] | [place], | Results ([facility] | | 2013 | | PULMONARY [address] | Irina Sofia MD | 05/20/14 results) | | | | [place], | | | | | | [place] [address] | | | | | | [phone] | | | +--------+ + + + [...] documented as of this encounter Miscellaneous Notes Telephone Encounter - Krupa Pavon RN - 07/30/2014 1:59 PM PDTReceived faxed lab resul ts from [facility] lab, collected 05/20/14. Dr. Norton reviewed and responded to let the p atient know the labs looked ok including iron. Notified Bronson of message from Dr. Norton. Bronson understood and did not have any other ques tions at this time. doc umented in this encounter Plan of Treatment +--------+ + + + + | Date | Type | Specialty | Care Team | Description | +--------+ + + + + | 06/23/ | Office | Cardiology | Rowdy Haines | | | 2019 | Visit | | MD [address] | | | | | | [address] [address] | | | | | | [place] [address] | | | | | | [phone] | | | | | | | | +--------+ + + + + | 06/23/ | Procedure | Cardiology | | | | 2019 | visit | | | | +--------+ + + + + | 07/06/ | Office | Neurology | Dada Goodwin, | | | 2019 | Visit | | MD Gabriel [address]LLERS | | | | | | [facility] [address] | | | | | | [place] [address] | | | | | | [phone] | | | | | | | | +--------+ + + + + documented as of this encounter Visit Diagnoses Not on filedocumented in this encounter"
--- OUTSIDE RECORDS SUMMARY | ~2020-06-20 | XMS | Encounter Summary ---
Demographics + + + | Address | [address] | | | [place] [address] | + + + | Home Phone | | + + + | Preferred Language | Unknown | + + + | Marital Status | | + + + | Jainism Affiliation | 1041 | + + + | Race | White | + + + | Ethnic Group | Not or | + + + Author + + + | Author | [facility] | | | and [place] | + + + | Organization | [facility] [...] [place] | | | | | [address] | | + + + + + | Scot Damico | ECON | [address] | | | | | [place] [address] | | + + + + + Care Team Providers + +------+ + | Care Customer Service Associate Name | Role | Phone | + +------+ + | Ralph Chatman MD | PCP | | + +------+ + Encounter Details +--------+ + + + + | Date | Type | Department | Care Team | Description | +--------+ + + + + | 07/07/ | Hospital | [facility] | Danish Ceballos, | | | 2012 - | Encounter | [facility] | [address] | | | | | [facility] | [place] [address] | | | 09/22/ | | [address] | [phone] | | | 2012 | | [place], [place] | | | | | | [address] | | | | | | [phone] | | | +--------+ + + + [...] +---------+--------+ + documented as of this encounter Procedure Notes [facility] - 08/20/2013 12:00 AM PSTAssociated Order(s): CONSULT - EXTERNAL SCANElect ronically signed by Favian amayamo at 08/26/2013 4:28 PM PSTONBASE SCAN [facility] - 07/31/2013 12: 00 AM PDTAssociated Order(s): IMAGING REPORT - EXTERNAL SCAN Ralph Lopez MD - 07/07/2013 10:20 AM PDTHeart Rate 65 P-R Interval 212 QRSD Interval 96 QT Interval 420 QTC Interval 437 P Meridian 46 QRS Meridian -11 T Wave Meridian -7 EKG Severity - NORMAL ECG - SINUS RHYTHM Electronically Signed 07/07/13 1020 Ralph Pulido MD KWAKU DAMICO RNE F ADM:07/07/13 [id number] REG CLI ELECTROCARDIOGRAM REPORT [id number] [facility] Ralph Pulido MD E-Sign: [facility] THIS REPORT IS CONFIDENTIAL AND NOT TO BE RELEASED WITHOUT PROPER AUTHORIZATION.Electronica lly signed by Ralph uPlido MD at 07/07/2013 6:14 PM PDTdocumented in this encounter Plan of Treatment +--------+ + + + + | Date | Type | Specialty | Care Team | Description | +--------+ + + + + | 06/23/ | Office | Cardiology | Rowdy Haines | | | 2019 | Visit | | MD Gabriel Ricketts | | | | | | [address] | | | | | | [place] [address] | | | | | | [phone] | | | | | | | [...] | | | [place] [address] | | | | | | [phone] | | | | | | | | +--------+ + + + + documented as of this encounter Procedures + +--------+ + + + | Procedure Name | Priori | Date/Time | Associated Diagnosis | Comments | | | ty | | | | + +--------+ + + + | CONSULT - EXTERNAL | | 08/20/2013 | | | | SCAN | | 12:00 AM | | | | | | PST | | | + +--------+ + + + | IMAGING REPORT - | | 07/31/2013 | | Results for this | | EXTERNAL SCAN | | 12:00 AM | | procedure are in the | | | | PDT | | results section. | + +--------+ + + + | XR CHEST 2 VIEWS | | 07/07/2013 | | Results for this | | | | 11:00 AM | | procedure are in the | | | | PDT | | results section. | + +--------+ + + + | CULTURE IF | Routin | 07/07/2013 | | Results for this | | INDICATED,UA | e | 10:53 AM | | procedure are in the | | | | PDT | | results section. | + +--------+ + + + | URINALYSIS WITH | Routin | 07/07/2013 | | Results for this | | MICROSCOPIC | e | 10:53 AM | | procedure are in the | | | | PDT | | results section. | + +--------+ + + + | PTT | Routin | 07/07/2013 | | Results for this | | | e | 10:51 AM | | procedure are in the | | | | PDT | | results section. | + +--------+ + + + | PROTIME INR | Routin | 07/07/2013 | | Results for this | | | e | 10:51 AM | | procedure are in the | | | | PDT | | results section. | + +--------+ + + + | CBC NO DIFFERENTIAL | Routin | 07/07/2013 | | Results for this | | | e | 10:51 AM | | procedure are in the | | | | PDT | | results section. | + +--------+ + + + | TYPE AND SCREEN | Routin | 07/07/2013 | | Results for this | | | e | 10:51 AM | | procedure are in the | | | | PDT | | results section. | + +--------+ + + + | HEMOGLOBIN A1C | Routin | 07/07/2013 | | Results for this | | | e | 10:51 AM | | procedure are in the | | | | PDT | | results section. | + +--------+ + + + | BASIC METABOLIC | Routin | 07/07/2013 | | Results for this | | PANEL | e | 10:51 AM | | procedure are in the | | | | PDT | | results section. | + +--------+ + + + documented in this encounter Results IMAGING REPORT - EXTERNAL SCAN (07/31/2013 12:00 AM PDT) + + + | Narrative | Performed At | + + + | Ordered by an | | | unspecified provider. | | + + + + + | Transcriptions | + + | Martell Holland - 07/31/2013 12:00 AM PDT | + + XR Chest 2 VW (07/07/2013 11:00 AM PDT) + + | Specimen | + + | | + + + + + | Narrative | Performed At | + + + | Exam Performed Location: [facility] TWO-VIEW | MISCELANIOUS | | CHEST X-RAY CLINICAL INFORMATION: Pre open heart surgery | LAB | | COMPARISON: 12/21/2009 PROCEDURE: PA upright and lateral views | | | of the chest FINDINGS: The heart, mediastinum and pulmonary | | | vasculature stable in appearance. No acute infiltrates are seen. | | | There is a 7-8 mm nodular opacity projecting over the right lower | | | lung, not significantly changed. No pleural effusion or | | | pneumothorax is identified. IMPRESSION: No acute findings. No | | | significant change. S: SQ ([id number]) Signed by: CHRISTINE Bull | | | MD ANKIT | | + + + + + | Procedure Note | + + | Niles Recinos Conversion - 07/29/2013 1:06 PM PDT Exam Performed [facility] CHEST [facility]-RAYCLINICAL INFORMATION:Pre open heart | | surgeryCOMPARISON:12/21/2009PROCEDURE:PA upright and lateral views of the | | chestFINDINGS:The heart, mediastinum and pulmonary vasculature stable inappearance. No | | acute infiltrates are seen. There is a 7-8 mmnodular opacity projecting over the right | | lower lung, notsignificantly changed. No pleural effusion or pneumothorax | | isidentified.IMPRESSION:No acute findings. No significant change.S: SQ ([id number]) Signed | | by: CHRISTINE PHAM MD | |12/21/2009 | | | |PROCEDURE: | |PA upright and lateral views of the chest | | | |FINDINGS: | |The heart, mediastinum and pulmonary vasculature stable in | |appearance. No acute infiltrates are seen. There is a 7-8 mm | |nodular opacity projecting over the right lower lung, not | |significantly changed. No pleural effusion or pneumothorax is | |identified. | | | |IMPRESSION: | |No acute findings. No significant change. | | | | | |S: SQ ([id number]) Signed by: CHRISTINE PHAM MD | + + + +---------+ + + | Performing | Address | City/State/Zipcode | Phone Number | | Organization | | | | + +---------+ + + | M[facility]OUS LAB | | | [phone] | + +---------+ + + | MISCELANIOUS LAB | | | [phone] | + +---------+ + + Urinalysis With Microscopic (07/07/2013 10:53 AM PDT) + + + + + + | Component | Value | Ref Range | Performed | Pathologist | | | | | At | Signature | + + + + + + | Color, | Yellow | | [facility] | | | Urine | | | [facility] | | | | | | HEART | | | | | | MEDICAL | | | | | | CENTER | | | | | | LABORATORY | | + + + + + + | Clarity, | Clear | | [facility] | | | Urine | | | [facility] | | | | | | HEART | | | | | | MEDICAL | | | | | | CENTER | | | | | | LABORATORY | | + + + + + + | Glucose, | Negative | Negative mg/dL | [facility] | | | Urine | | | [facility]CR[facility] | | | | | | HEART | | | | | | MEDICAL | | | | | | CENTER | | | | | | LABORATORY | | + + + + + + | Bilirubin, | Negative | Negative | [facility] | | | Urine | | | [facility]CR[facility] | | | | | | HEART | | | | | | MEDICAL | | | | | | CENTER | | | | | | LABORATORY | | + + + + + + | Ketones, | Negative | Negative mg/dL | [facility] | | | Urine | | | [facility]CR[facility] | | | | | | HEART | | | | | | MEDICAL | | | | | | CENTER | | | | | | LABORATORY | | + + + + + + | Specific | 1.013 | 1.001 - 1.030 | [facility] | | | Chicken | | | [facility] | | | | | | HEART | | | | | | MEDICAL | | | | | | CENTER | | | | | | LABORATORY | | + + + + + + | pH, Urine | 5.5 | 5.0 - 7.5 | [facility] | | | | | | [facility]CR[facility] | | | | | | HEART | | | | | | MEDICAL | | | | | | CENTER | | | | | | LABORATORY | | + + + + + + | Protein, | Negative | Negative mg/dL | [facility] | | | Urine | | | SACR[facility] | | | | | | HEART | | | | | | MEDICAL | | | | | | CENTER | | | | | | LABORATORY | | + + + + + + | Urobilinoge | <2.0 | <2.0 mg/dL | [facility] | | | n, Urine | | | [facility]CR[facility] | | | | | | HEART | | | | | | MEDICAL | | | | | | CENTER | | | | | | LABORATORY | | + + + + + + | Nitrite, | Negative | Negative | [facility] | | | Urine | | | [facility]CR[facility] | | | | | | HEART | | | | | | MEDICAL | | | | | | CENTER | | | | | | LABORATORY | | + + + + + + | Blood, | Negative | Negative | [facility] | | | Urine | | | [facility]CR[facility] | | | | | | HEART | | | | | | MEDICAL | | | | | | CENTER | | | | | | LABORATORY | | + + + + + + | Leukocyte | Negative | Negative | [facility] | | | Esterase, | | | [facility]CR[facility] | | | Urine | | | HEART | | | | | | MEDICAL | | | | | | CENTER | | | | | | LABORATORY | | + + + + + + | White Blood | <1 | <6 /hpf | [facility] | | | Cells, | | | [facility]CR[facility] | | | Urine | | | HEART | | | | | | MEDICAL | | | | | | CENTER | | | | | | LABORATORY | | + + + + + + | Red Blood | <1 | <3 /hpf | [facility] | | | Cells, | | | [facility]CR[facility] | | | Urine | | | HEART | | | | | | MEDICAL | | | | | | CENTER | | | | | | LABORATORY | | + + + + + + | Bacteria, | None seen | /hpf | [facility] | | | Urine | | | [facility]CR[facility] | | | | | | HEART | | | | | | MEDICAL | | | | | | CENTER | | | | | | LABORATORY | | + + + + + + | Squamous | Not clinically | /lpf | [facility] | | | Epithelial | significant.Comment: | | [facility] | | | Cells, | Healthy individuals show | | HEART | | | Urine | up to FEW squamous | | MEDICAL | | | | epithelial cells in the | | CENTER | | | | urine, depending on | | LABORATORY | | | | collection method. | | | | + + + + + + | Mucus, | Present (A) | None seen /lpf | [facility] | | | Urine | | | [facility]CR[facility] | | | | | | HEART | | | | | | MEDICAL | | | | | | CENTER | | | | | | LABORATORY | | + + + + + + | Amorphous | Present (A) | None seen /hpf | [facility] | | | Crystals, | | | [facility]CR[facility] | | | Urine | | | HEART | | | [...] + + | [facility] | [address] | [place] [address] | | | [facility] | | | | | LABORATORY | | | | + + + + + Cul Kati VALLEJO (07/07/2013 10:53 AM PDT) + + + + + + | Component | Value | Ref Range | Performed | Pathologist | | | | | At | Signature | + + + + + + | Culture | Culture not indicated | Culture not | [facility] | | | Indicated | | indicated | [facility] | | | | | [...] + + | [facility] | [address] | [place] [address] | | | [facility] | | | | | LABORATORY | | | | + + + + + Hemoglobin A1C (07/07/2013 10:51 AM PDT) + + + + + + | Component | Value | Ref Range | Performed | Pathologist | | | | | At | Signature | + + + + + + | Hemoglobin | 5.5Comment: A1c values | 4.0 - 5.6 % | [facility] | | | A1c | of 5.7-6.4% indicate an | | [facility] | | | | increased risk for | | HEART | | | | diabetes mellitus. A1c | | MEDICAL | | | | values of greater than | | CENTER | | | | or equal to 6.5% are | | LABORATORY | | | | diagnostic of diabetes | | | | | | mellitus.The ADA | | | | | | recommends A1c values of | | | | | | less than 7% as the | | | | | | goal for diabetic | | | | | | therapy.The boronate | | | | | | affinity Hb A1c testing | | | | | | method is certified | | | | | | traceable to the | | | | | | Diabetes Control and | | | | | | Complications Trial | | | | | | (DCCT) reference method, | | | | | | and provides accurate | | | | | | analytical results in | | | | | | the presence of nearly | | | | | | all hemoglobin variants. | | | | | | Hb F higher than 15% | | | | | | of total Hb may yield | | | | | | falsely low | | | | | | results.Conditions that | | | | | | shorten red cell | | | | | | survival, such as the | | | | | | presence of unstable | | | | | | hemoglobins (e.g. Hb SS, | | | | | | Hb CC, and Hb SC), or | | | | | | other causes of | | | | | | hemolytic anemia may | | | | | | yield falsely low | | | | | | results. Patients that | | | | | | are post-splenectomy or | | | | | | that have conditions | | | | | | such as polycythemia or | | | | | | iron deficiency anemia | | | | | | may yield falsely high | | | | | | results.NOTE NEW | | | | | | REFERENCE RANGE | | | | + + + + + + | Estimated | 111Comment: The ADA | <154 mg/dL | [facility] | | | Average | recommends an Estimated | | [facility] | | | Glucose | Average Glucose (eAG) | | HEART | | | | result of LT 154 mg/dL | | MEDICAL | | | | to be the goal of | | CENTER | | | | diabetic therapy. | | LABORATORY | | | | Estimated Average | | | | | | Glucose is calculated | | | | | | from the Hgb A1c by use | | | | | | of the ADA recommended | | | | | | formula. | | | | + + + + + + + + | Specimen | + + | | + + + + + + + | Performing | Address | City/State/Zipcode | Phone Number | | Organization | | | | + + + + + | [facility] | [address] | [place] [address] | | | [facility] | | | | | LABORATORY | | | | + + + + + Type and Screen (07/07/2013 10:51 AM PDT) + +-------+ + + + | Component | Value | Ref Range | Performed | Pathologist | | | | | At | Signature | + +-------+ + + + | EXTRA BLOOD | Done | | [facility] | | | BANK TUBE | | | [facility]CR[facility] | | | | | | HEART | | | | | | MEDICAL | | | | | | CENTER | | | | | | LABORATORY | | + +-------+ + + + + + | Specimen | + + | | + + + + + + + | Performing | Address | City/State/Zipcode | Phone Number | | Organization | | | | + + + + + | [facility] | [address] | [place] [address] | | | [facility] | | | | | LABORATORY | | | | + + + + + Basic Metabolic Panel (07/07/2013 10:51 AM PDT) + + + + + [...] + + + + | K | 4.2 | 3.5 - 5.0 | [facility] | | | | | mmol/L | [facility] | | | | | | HEART | | | | | | MEDICAL | | | | | | CENTER | | | | | | LABORATORY | | + + + + + + | Cl | 107 | 99 - 109 mmol/L | [facility] | | | | | | [facility] | | | | | | HEART | | | | | | MEDICAL | | | | | | CENTER | | | | | | LABORATORY | | + + + + + + | CO2 | 29 (H) | 21 - 28 mmol/L | [facility] | | | | | | [facility] | | | | | | HEART | | | | | | MEDICAL | | | | | | CENTER | | | | | | LABORATORY | | + + + + + + | Glucose | 81Comment: Citizen [place] | 65 - 99 mg/dL | [facility] | | | | Diabetes Association | [...] + + + + | BUN | 21 | 8 - 25 mg/dL | [facility] | | | | | | [facility] | | | | | | HEART | | | | | | MEDICAL | | | | | | CENTER | | | | | | LABORATORY | | + + + + + + | Creatinine | 1.02Comment: IDMS | 0.70 - 1.30 | [facility] [...] + + + | Anion Gap | 4 (L) | 5 - 16 mmol/L | [facility] [...] | | | | calculated GFR by 1.210 | | | | + + + + + + + + | Specimen | + + | | + + + + + + + | Performing | Address | City/State/Zipcode | Phone Number | | Organization | | | | + + + + + | [facility] | [address] | [place] [address] | | | [facility] | | | | | LABORATORY | | | | + + + + + PTT (07/07/2013 10:51 AM PDT) + + + + + + | Component | Value | Ref Range | Performed | Pathologist | | | | | At | Signature | + + + + + + | aPTT, | 33Comment: Deep venous | 26 - 36 sec | [facility] | | | Patient | thrombosis or pulmonary | | [facility]CR[facility] | | | | embolism therapeutic | | HEART | | | | heparin levels of 0.3 to | | MEDICAL | | | | 0.7 Units/mL anti | | CENTER | | | | FactorXa levels usually | | LABORATORY | | | | correspond to an aPTT of | | | | | | 60 to 85 seconds. | | | | | | Acute cardiac syndrome | | | | | | therapeutic range based | | | | | | on heparin levels of | | | | | | 0.2 to 0.5 usually | | | | | | correspond to an aPTT of | | | | | | 55 to 75 seconds. | | | | + + + + + + | aPTT, Pop | 31 | sec | [facility] | | | Mean | | | [facility] | | | [...] + + | [facility] | [address] | [place] [address] | | | [facility] | | | | | LABORATORY | | | | + + + + + Protime INR (07/07/2013 10:51 AM PDT) + + + + + + | Component | Value | Ref Range | Performed | Pathologist | | | | | At | Signature | + + + + + + | Prothrombin | 12.6 | 10.9 - 14.8 sec | [facility] | | | Time | | | [facility] | | | | | | HEART | | | | | | MEDICAL | | | | | | CENTER | | | | | | LABORATORY | | + + + + + + | INR | 1.0Comment: Usual oral | 0.9 - 1.2 | [facility] | | | | anticoagulant range: 2.0 | | SACRED | | | | to 3.0 High level | | HEART | | | | oral anticoagulant | | MEDICAL | | | | range: 2.5 to 3.5 | | CENTER | | | | | | LABORATORY | | + + + + + + + + | Specimen | + + | | + + + + + + + | Performing | Address | City/State/Zipcode | Phone Number | | Organization | | | | + + + + + | [facility] | [address] | [place] [address] | | | [facility] | | | | | LABORATORY | | | | + + + + + CBC no Differential (07/07/2013 10:51 AM PDT) + +-------+ + + + | Component | Value | Ref Range | Performed | Pathologist | | | | | At | Signature | + +-------+ + + + | White Blood | 4.4 | 3.8 - 11.0 K/uL | [facility] | | | Cells | | | SACR[facility] | | | | | | HEART | | | | | | MEDICAL | | | | | | CENTER | | | | | | LABORATORY | | + +-------+ + + + | Red Blood | 4.41 | 4.20 - 5.70 | [facility] | | | Cells | | M/uL | [facility]CR[facility] | | | | | | HEART | | | | | | MEDICAL | | | | | | CENTER | | | | | | LABORATORY | | + +-------+ + + + | Hemoglobin | 13.7 | 13.2 - 17.0 | [facility] | | | | | g/dL | [facility]CR[facility] | | | | | | HEART | | | | | | MEDICAL | | | | | | CENTER | | | | | | LABORATORY | | + +-------+ + + + | Hematocrit | 40.2 | 39.0 - 50.0 % | [facility] | | | | | | [facility] | | | | | | HEART | | | | | | MEDICAL | | | | | | CENTER | | | | | | LABORATORY | | + +-------+ + + + | MCV | 91.1 | 80.0 - 100.0 fL | [facility] | | | | | | [facility]CR[facility] | | | | | | HEART | | | | | | MEDICAL | | | | | | CENTER | | | | | | LABORATORY | | + +-------+ + + + | MCH | 31.0 | 27.0 - 34.0 pg | [facility] | | | | | | [facility]CR[facility] | | | | | | HEART | | | | | | MEDICAL | | | | | | CENTER | | | | | | LABORATORY | | + +-------+ + + + | MCHC | 34.1 | 32.0 - 35.5 | [facility] | | | | | g/dL | [facility]CR[facility] | | | | | | HEART | | | | | | MEDICAL | | | | | | CENTER | | | | | | LABORATORY | | + +-------+ + + + | RDW-CV | 15.1 | 11.0 - 15.5 % | [facility] | | | | | | [facility] | | | | | | HEART | | | | | | MEDICAL | | | | | | CENTER | | | | | | LABORATORY | | + +-------+ + + + | Platelet | 250 | 150 - 400 K/uL | [facility] | | | Count | | | [facility]CR[facility] | | | | | | HEART | | | | | | MEDICAL | | | | | | CENTER | | | | | | LABORATORY | | + +-------+ + + + + + | Specimen | + + | | + + + + + + + | Performing | Address | City/State/Zipcode | Phone Number | | Organization | | | | + + + + + | [facility] | [address] | [place] [address] | | | [facility] | | | | | LABORATORY | | | | + + + + + documented in this encounter Visit Diagnoses Not on filedocumented in this encounter"
--- OUTSIDE RECORDS SUMMARY | ~2020-06-20 | XMS | Encounter Summary ---
Demographics + + + | Address | [address] | | | [place] [address] | + + + | Home Phone | | + + + | Preferred Language | Unknown | + + + | Marital Status | | + + + | Moravian Affiliation | 1041 | + + + | Race | White | + + + | Ethnic Group | Not or | + + + Author + + + | Author | [facility] | | | and [place] | + + + | Organization | [facility] | | | [...] [place] | | | | | [address] | | + + + + + | Scot Damico | ECON | [address] | | | | | [place] [address] | | + + + + + Care Team Providers + +------+ + | Care Hydrostatic Tubing Tester Name | Role | Phone | + +------+ + | Milvia Snyder MD | PCP | | + +------+ + Reason for Visit +--------+--------+ + | Reason | Onset | Comments | | | Date | | +--------+--------+ + | Other | 12/06/ | | | | 2020 | | +--------+--------+ + Encounter Details +--------+ + + + + | Date | Type | Department | Care Team | Description | +--------+ + + + + | 12/06/ | Telephone | [facility] | Dada Goodwin, | Other | | 2020 | | NEUROLOGY [address] | | | | [address] | [facility] | | | | | [place], [place] | [place] [address] | | | | | [address] | [phone] | | | | | [phone] | | | +--------+ + + + [...] this encounter Miscellaneous Notes Telephone Encounter - Jaswant Bower Health Informatics Instructor - 12/07/2019 2:18 PM PSTRecords [facility] Ph: Fx: [phone] docu mented in this encounter Plan of Treatment +--------+ + + + + | Date | Type | Specialty | Care Team | Description | +--------+ + + + + | 06/23/ | Office | Cardiology | Rowdy Haines | | | 2019 | Visit | | MD [address] | | | | | | [address] | | | | | | [place] [address] | | | | | | [phone] | | | | | | | [...] | | | [place] [address] | | | | | | [phone] | | | | | | | | +--------+ + + + + documented as of this encounter Visit Diagnoses Not on filedocumented in this encounter"
--- OUTSIDE RECORDS SUMMARY | ~2020-06-20 | XMS | Encounter Summary ---
Demographics + + + | Address | [address] | | | [place] [address] | + + + | Home Phone | | + + + | Preferred Language | Unknown | + + + | Marital Status | | + + + | Buddhist Affiliation | 1041 | + + + | Race | White | + + + | Ethnic Group | Not or | + + + Author + + + | Author | [facility] | | | and [place] | + + + | Organization | [facility] | | [...] [place] | | | | | [address] | | + + + + + | Scot Damico | ECON | [address] | | | | | [place] [address] | | + + + + + Care Team Providers + +------+ + | Care Switch Box Installer Name | Role | Phone | + +------+ + | Milvia Snyder MD | PCP | | + +------+ + Reason for Visit + +--------+ + | Reason | Onset | Comments | | | Date | | + +--------+ + | Appointment | 05/04/ | | | | 2019 | | + +--------+ + Encounter Details +--------+ + + + + | Date | Type | Department | Care Team | Description | +--------+ + + + + | 05/04/ | Telephone | [facility] | Rowdy Haines | Appointment | | 2019 | | CARDIOLOGY [place] | MD [address] | | | | | [address] | [address] | | | | | [place], [place] | [place] [address] | | | | | [address] | [phone] | | | | | [phone] | | | +--------+ + + + [...] this encounter Miscellaneous Notes Telephone Encounter - Arabella Coy - 05/04/2020 10:04 AM PDTCalling pt to set up new pt apt. Left msg for pt to call back and schedule. Arabella Coy documented in this enc ounter Plan of Treatment +--------+ + + + + | Date | Type | Specialty | Care Team | Description | +--------+ + + + + | 06/23/ Office | Cardiology | Rowdy Haines | | 2019 | Visit | | MD [address] | | | | | | [address] | | | | | | [place] [address] | | | | | | [phone] | | | | | | | [...] | | | [place] [address] | | | | | | [phone] | | | | | | | | +--------+ + + + + documented as of this encounter Visit Diagnoses Not on filedocumented in this encounter"
--- OUTSIDE RECORDS SUMMARY | ~2020-06-20 | XMS | Encounter Summary ---
Demographics + + + | Address | [address] | | | [place] [address] | + + + | Home Phone | | + + + | Preferred Language | Unknown | + + + | Marital Status | | + + + | Taoism Affiliation | 1041 | + + + | Race | White | + + + | Ethnic Group | Not or | + + + Author + + + | Author | [facility] | | | and [place] | + + + | Organization | [facility] | | | [...] [place] | | | | | [address] | | + + + + + | Scot Damico | ECON | [address] | | | | | [place] [address] | | + + + + + Care Team Providers + +------+ + | Care Stitch Wheeler Name | Role | Phone | + +------+ + PCP | Unavailable | + +------+ + Encounter Details +--------+ + + + + | Date | Type | Department | Care Team | Description | +--------+ + + + + | 11/27/ | Hospital | [facility] | Boris Barboza | | | 2005 - | Encounter | [facility] | MD Tomasa NEED ADDRESS | | | | | SURGICAL [address] | | | | 11/30/ | | [place] | | | | 2005 | | [address] | | | | | | [phone] | | | +--------+ + + + [...] [place] | | | | | | [place] [address] | | | | | | [phone] | | | | | | | [...] | | | [place] [address] | | | | | | [phone] | | | | | | | | +--------+ + + + + documented as of this encounter Visit Diagnoses Not on filedocumented in this encounter"
--- OUTSIDE RECORDS SUMMARY | ~2020-06-20 | XMS | Encounter Summary ---
Demographics + + + | Address | [address] | | | [place] [address] | + + + | Home Phone | | + + + | Preferred Language | Unknown | + + + | Marital Status | | + + + | Jewish Affiliation | 1041 | + + + [...] [place] | | | | | [address] | | + + + + + | Scot Damico | ECON | [address] | | | | | [place] [address] | | + + + + + Care Team Providers + +------+ + | Care Cotton Opener Name | Role | Phone | + +------+ + | Ralph Chatman MD | PCP | | + +------+ + Encounter Details +--------+ + + + + | Date | Type | Department | Care Team | Description | +--------+ + + + + | 07/29/ | Orders Only | [facility] [place] | Marlen Urbano, | COPD (chronic | | 2013 | | PULMONARY [address] | RN | obstructive | | | | [place], | | pulmonary disease) | | | | [place] [address] | | ([facility]) | | | | [phone] | | | +--------+ + + + [...] [place] | | | | | | [place] [address] | | | | | | [phone] | | | | | | | [...] | | | [place] [address] | | | | | | [phone] | | | | | | | | +--------+ + + + + documented as of this encounter Visit Diagnoses + + | Diagnosis | + + | COPD (chronic obstructive pulmonary disease) (HCC) Chronic airway obstruction, not | | elsewhere classified | + + documented in this encounter"
--- OUTSIDE RECORDS SUMMARY | ~2020-06-20 | XMS | Encounter Summary ---
Demographics + + + | Address | [address] | | | [place] [address] | + + + | Home Phone [...] Author + + + | Author | [facility] | | | and [place] | + + + | Organization | [facility] | | [...] [place] | | | | | [address] | | + + + + + | Scot Damico | ECON | [address] | | | | | [place] [address] | | + + + + + Care Team Providers + +------+ + | Care Scrap Piler Name | Role | Phone | + +------+ + | Ralph Chatman MD | PCP | | + +------+ + Encounter Details +--------+ + + + + | Date | Type | Department | Care Team | Description | +--------+ + + + + | 06/15/ | Orders Only | [facility] [place] | Offenstein, | Cough (Primary Dx) | | 2013 | | [address]ULMONARY [address] | Irina Sofia MD | | | | | [place], | | | | | | [place] [address] | | | | | | [phone] | | | +--------+ + + + [...] | | | | | [place] [address] | | | | | | [phone] | | | | | | | [...] | | | [place] [address] | | | | | | [phone] | | | | | | | | +--------+ + + + + documented as of this encounter Visit Diagnoses + + | Diagnosis | + + | Cough - Primary | + + documented in this encounter"
--- OUTSIDE RECORDS SUMMARY | ~2020-06-20 | XMS | Encounter Summary ---
Demographics + + + | Address | [address] | | | [place] [address] | + + + | Home Phone [...] + + + | Author | [facility] | | | and [place] | + + + | Organization | [facility] | | | [...] [place] | | | | | [address] | | + + + + + | Scot Damico | ECON | [address] | | | | | [place] [address] | | + + + + + Care Team Providers + +------+ + | Care Mold Repair Technician Name | Role | Phone | + +------+ + | Ralph Chatman MD | PCP | | + +------+ + Encounter Details +--------+ + + + + | Date | Type | Department | Care Team | Description | +--------+ + + + + | 06/02/ | Hospital | [facility] | Conversion | Other | | 2015 | Encounter | [facility] | Transaction, | musculoskeletal | | | | ULTRASOUND [address] | Provider Unknown | symptoms referable | | | | [address] | | to limbs(729.89) | | | | [place], [place] | (Fax) | | | | | [address] | | | | | | [phone] | | | +--------+ + + + [...] + + + +---------+ + + | acetaminophen | Take 500 mg by mouth | | 0 | | | | (TYLENOL) 500 mg | every 6 hours as | | | | 6 | | tablet | needed. | | | | | + + + +---------+ + + | albuterol (PROAIR | Inhale 2 puffs into | | 0 | | | | HFA) 90 mcg/puff | the lungs every 6 | | | | 5 | | inhaler | hours as needed. | | | | | + + + +---------+ + + | B Complex Vitamins | Take 100 mg by mouth | | 0 | | | | (B COMPLEX 100 PO) | Daily. | | | | 6 | + + + +---------+ + + | losartan (COZAAR) | Take 100 mg by mouth | | 0 | | | | 100 MG tablet | Daily. | | | | 5 | + + + +---------+ + + | metoprolol | Take 25 mg [...] | | | | | | [place] [address] | | | | | | [phone] | | | | | | | [...] | | | [place] [address] | | | | | | [phone] | | | | | | | | +--------+ + + + + documented as of this encounter Procedures + +--------+ + + + | Procedure Name | Priori | Date/Time | Associated Diagnosis | Comments | | | ty | | | | + +--------+ + + + | VAS ANKLE BRACHIAL | Routin | 06/02/2015 | | Results for this | | INDEX W TREADMILL | e | 10:00 AM | | procedure are in the | | EXERCISE | | PDT | | results section. | + +--------+ + + + documented in this encounter Results VAS Ankle Brachial Index w Treadmill Exe (06/02/2015 10:00 AM PDT) + + | Specimen | + + | | + + + + + | Impressions | Performed At | + + + | 1. Normal bilateral lower extremity ankle-brachial indices. | | | | | + + + + + + | Narrative | Performed At | + + + | [facility] 06/02/2015 10:00 AM | | | History: 80 years. Male. Bilateral leg weakness when | | | walking, suggesting claudication. Technique: Utilizing continuous | | | wave on pulsed Doppler ultrasound, blood flow was monitored in the | | | right and left brachial, posterior tibial and dorsalis pedis arteries | | | with inflation and deflation of proximal blood pressure cuffs. Similar | | | measurements were performed in the first toes bilaterally. Peak | | | systolic blood pressure measurements: Brachial: 136 right, 132 left. | | | Posterior tibial: 157 right, 159 left. Dorsalis pedis: 161 right, | | | 158 left. Great toe: 142 right, 139 left. Ankle brachial indexes | | | (BEBE): Posterior tibial: 1.15 right, 1.17 left. (normal > 0.90) | | | Dorsalis pedis: 1.18 right, 1.16 left. (normal > 0.90) Toe | | | brachial indexes (TBI): First toe: 1.04 right, 1.0 to left. (normal | | | > 0.70) | | + + + + + | Procedure Note | + + | [facility] Conversion - 05/22/2019 9:35 AM PDT [facility] | | EXERCISE06/02/2015 10:00 AM History: 80 years. Male. Bilateral leg weakness when | | walking, suggesting claudication. Technique: Utilizing continuous wave on pulsed Doppler | | ultrasound, blood flow was monitored in the right and left brachial, posterior tibial | | and dorsalis pedis arteries with inflation and deflation of proximal blood pressure | | cuffs. Similar measurements were performed in the first toes bilaterally. Peak systolic | | blood pressure measurements:Brachial: 136 right, 132 left.Posterior tibial: 157 right, | | 159 left.Dorsalis pedis: 161 right, 158 left.Great toe: 142 right, 139 left. Ankle | | brachial indexes (BEBE):Posterior tibial: 1.15 right, 1.17 left. (normal > 0.90)Dorsalis | | pedis: 1.18 right, 1.16 left. (normal > 0.90) Toe brachial indexes (TBI):First toe: 1.04 | | right, 1.0 to left. (normal > 0.70) IMPRESSION: 1. Normal bilateral lower extremity | | ankle-brachial indices. | | 12:41 PM | |Dorsalis pedis: 161 right, 158 left. | |Great toe: 142 right, 139 left. | | | |Ankle brachial indexes (BEBE): | |Posterior tibial: 1.15 right, 1.17 left. (normal > 0.90) | |Dorsalis pedis: 1.18 right, 1.16 left. (normal > 0.90) | | | |Toe brachial indexes (TBI): | |First toe: 1.04 right, 1.0 to left. (normal > 0.70) | | | |IMPRESSION: | |1. Normal bilateral lower extremity ankle-brachial indices. | | | | | + + documented in this encounter Visit Diagnoses + + | Diagnosis | + + | Other musculoskeletal symptoms referable to limbs(729.89) Other musculoskeletal | | symptoms referable to limbs | + + documented in this encounter"
--- OUTSIDE RECORDS SUMMARY | ~2020-06-20 | XMS | Encounter Summary ---
Demographics + + + | Address | [address] | | | [place] [address] | + + + | Home Phone | | + + + | Preferred Language | Unknown | + + + | Marital Status | | + + + | Zoroastrian Affiliation | 1041 | + + + | Race | White | + + + | Ethnic Group | Not or | + + + Author + + + | Author | [facility] | | | and [place] | + + + | Organization | [facility] | | | [...] [place] | | | | | [address] | | + + + + + | Scot Damico | ECON | [address] | | | | | [place] [address] | | + + + + + Care Team Providers + +------+ + | Care Eye Glass Frame Polisher Name | Role | Phone | + +------+ + | Ralph Chatman MD | PCP | | + +------+ + Reason for Visit +--------+ + | Reason | Comments | +--------+ + | COPD | | +--------+ + Encounter Details +--------+---------+ + + + | Date | Type | Department | Care Team | Description | +--------+---------+ + + + | 10/15/ | Office | [facility] | [place], | COPD (chronic | | 2015 | Visit | PULMONARY [address] | Irina Sofia MD | obstructive | | | | [place], | | pulmonary disease) | | | | [place] [address] | | (HCC) (Primary Dx); | | | | [phone] | | Pulmonary nodules; | | | | | | PANCHITO (obstructive | | | | | | sleep apnea) | +--------+---------+ + + + Social [...] + | Blood Pressure | 122/76 | 10/15/2014 12:54 PM | | | | | PST | | + + + + + | Pulse | 53 | 10/15/2014 12:54 PM | | | | | PST | | + + + + + | Temperature | - | - | | + + + + + | Respiratory Rate | - | - | | + + + + + | Oxygen Saturation | 97% | 10/15/2014 12:54 PM | | | | | PST | | + + + + + | Inhaled Oxygen | - | - | | | Concentration | | | | + + + + + | Weight | 89.3 kg (196 lb 12.8 | 10/15/2014 12:54 PM | | | | oz) | PST | | + + + + + | Height | 171.5 cm (5' 7.5") | 10/15/2014 12:54 PM | | | | | PST | | + + + + + | Body Mass Index | 30.37 | 10/15/2014 12:54 PM | | | | | PST | | + + + + + documented in this encounter Patient Instructions Patient Instructions Irina Norton MD - 10/15/2014 1:51 PM PSTWe will go ahead an d get you set up for the follow up sleep study. I would encourage you to do a different type of cardio at least once weekly, such as the st air climber or the treadmill. I would aim for doing 5 days a week for 30 minutes. I want you to try staying on the Spiriva once daily. I think you are getting some benefit f rom this. documented in this encounter Progress Notes Irina Norton MD - 10/15/2014 1:10 PM PSTFormatting of this note might be differe nt from the original. Pulmonary Follow Up HPI [place] is a 79 y.o. male patient of Ralph Chatman here today for follo w up of shortness of breath. At their last visit, we had ordered an overnight oximetry test. Since their last visit he feels like he has been doing well. He has not had any acute illnesses. We had done an overnight oximetry oximetry which was concerning for obstructive sleep apnea . We referred him for a sleep study, which he had done at [facility]. He was called with the results, and told that he had mild PANCHITO, which was worse when he was lying on his back. Colton rod was also told that he had limb movements. They did recommend that he have a titration stud y. He has not scheduled this. He is currently on a regimen of Spiriva one capsule daily. He did not feel like starting th is helped his shortness of breath. He did feel like for about 15 minutes after using his Spi marianna, he had a feeling like his airways were more open. He is almost never using the ProAir inhaler at this point. He notes he uses this about once a week, but notes he can get similar relief from stopping and resting. He returns today for routine follow up. Currently he is able to walk 1/2 to 1 mile at his own pace on level ground. He is exercisin g regularly. He has been going to the athletic club for 1/2 hour 3 times weekly and doing a cardio machine. He does not experience much shortness of breath when he is doing this. He do es also do core strengthening and upper body strengthening. On other days, he often goes out and does yard work. He notes he tends to get short of breath when he climbs stairs, or juan ies heavier objects. He does cough a lit bit, which he describes as a sinus drainage. He did do the overnight oximetry and was low, but opted to not do the oxygen at night. He n ever did get the oxygen at night. 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 Social History Main Topics Smoking status: Former Smoker -- 0.5 packs/day for 1 years Types: Cigarettes Quit date: 10/07/1957 Smokeless tobacco: None Alcohol Use: 0.0 oz/week 2-3 Glasses of wine per week Drug Use: No Sexually Active: None Other Topics Concern None Social History Narrative Lives: [place] With: his wifeG[facility] up[facility] Has previously lived in: [place], [place] , [place]posure to toxic chemicals: possibly as a pharmacist, did not do a lot of compo undingExposure to asbestos: noExposure to tuberculosis: no Has had a PPD or Quantiferon befo re: he thinks soHas pets at home: no Has ever owned birds: their son had one in the remote p ast Other animal exposures: have had dogs and catsHobbies: golf, skiing in the past, gardeni ng Allergies: Allergies Allergen Reactions Lisinopril Cough Medications: Outpatient Encounter Prescriptions as of 10/15/2014 Medication Sig Dispense Refill acetaminophen (TYLENOL) 500 [...] the sydnie gs Daily. 30 capsule 11 Review of Systems Constitutional: Denies fever, chills, sweats, and change in weight. Sleep: New diagnosis of PANCHITO, mild, but severe in supine position. Eyes: Denies vision change and eye irritation. Has to have cataract surgery this summer. ENT: Denies earache, nosebleeds, sore throat, and hoarseness. Has hearing loss. Resp: See HPI. CV: Denies chest pain, palpitations, syncope, and peripheral edema. Gets ankle swelling if he wears tight socks. GI: Denies heartburn, nausea, vomiting, and abdominal pain.. : Denies difficulty emptying bladder. Objective BP 122/76 | Pulse 53 | Ht 1.715 m (5' 7.5") | Wt 89.268 kg (196 lb 12.8 oz) | BMI 30.35 kg/ m2 | SpO2 97% RA General Appearance: Alert, cooperative, no distress, appears stated age Head: Normocephalic, without obvious abnormality, atraumatic Eyes: PERRL, conjunctiva clear, no scleral icterus, EOM's intact Ears: Normal TM's, external auditory canals, diminished acuity Nose: Nares normal, septum midline, [...] nodes: Cervical and supraclavicular nodes normal Data: Overnight oximetry was done on August 04, 2014 on room air and was reviewed and interprete d in clinic today. It shows he spent 8.3 with a saturation less than 88 %, he did, however, have a sawtooth desaturation on his oximetry concerning for sleep apnea. Labs 05/2014 TSH 1.62 Iron 105 Diagnostic polysomnogram was done on September 23, 2014. This showed an overall AHI of 7.6, but in the supine position, this increased to 60. The PLM index was 18.4, but the arousal in dex was 5.4. PAP titration was recommended. Mio Eleln's notes were reviewed in clinic today. Immunization History Administered Date(s) Administered INFLUENZA, >= 4YO W/PRESERVATIVE IM 07/07/2013 TRIVALENT INFLUENZA, PRESERATIVE FREE (PED/ADOL/ADULT) 06/21/2014 ZOSTER, 1 DOSE (ADULT) 07/07/2012 Assessment 1. COPD (chronic obstructive pulmonary disease) (HCC) - I think he is improved on the Spiri va. He is not convinced. Based on decreased use of ProAir, and functional capacity, I would say he can do more and needs his rescue inhaler less. I think because he has not noticed a d ramatic change, he is somewhat skeptical, but he is willing to stay on this. We also discussed that perhaps the exercise he is doing is not challenging him in the ways he needs to be challenged so that when he does heavier exertion, he gets more short of breat h. I suggested exercising somewhat more often, but also doing something other than the stati onary bike such as walking on the treadmill or doing the stair climber (I discouraged the el liptical due to balance issues and risk of falls). He was agreeable, and will try doing some different exercises. 2. Pulmonary nodules - Several small nodules. Due for repeat chest CT scan 07/2015. 3. PANCHITO (obstructive sleep apnea) - This is mild, but severe in the supine position. I agree with the recommendation to do a PAP titration and initiate PAP therapy given the severe strap buckler machine ea seen in the supine position and also given his medical co morbidities. Plan 1.Continue on Spiriva. 2.Try exercising 1-2 more days a week, and doing treadmill or stair climbing. 3.Refer for PAP titration. 4. Plan for repeat chest CT scan . 5. If he is still tired on PAP therapy, consider trial of medication for limb movements. He was advised to call if new pulmonary symptoms were to develop. Return to clinic after PAP titration, or sooner with concerns. CC: Ralph Chatman Portions of this report were transcribed using voice recognition software. Every effort wa s made to ensure accuracy; however, inadvertent computerized prosthetic aide errors may be pre sent. documented in [...] | | | | | [place] [address] | | | | | | [phone] | | | | | | | [...] | | | [place] [address] | | | | | | [phone] | | | | | | | | +--------+ + + + + documented as of this encounter Visit Diagnoses + + | Diagnosis | + + | COPD (chronic obstructive pulmonary disease) (HCC) - Primary Chronic airway | | obstruction, not elsewhere classified | + + | Pulmonary nodules Other nonspecific abnormal finding of lung field | + + | PANCHITO (obstructive sleep apnea) Obstructive sleep apnea (adult) (pediatric) | + + documented in this encounter
--- OUTSIDE RECORDS SUMMARY | ~2020-06-20 | XMS | Encounter Summary ---
Demographics + + + | Address | [address] | | | [place] [address] | + + + | Home Phone | | + + + | Preferred Language | Unknown | + + + | Marital Status | | + + + | Roman Catholic Affiliation | [id number] | + + + [...] [place] | | | | | [address] | | + + + + + | Scot Damico | ECON | [address] | | | | | [place] [address] | | + + + + + Care Team Providers + +------+ + | Care Edi Coordinator Name | Role | Phone | + +------+ + | Ralph Chatman MD | PCP | | + +------+ + Encounter Details +--------+ + + + + | Date | Type | Department | Care Team | Description | +--------+ + + + + | 07/08/ | Hospital | [facility] | Kriss Ceballos, | | | 2012 - | Encounter | [facility] | [address] | | | | | CARDIAC TRANSPLANT | [place] [address] | | | 07/13/ | | [address] | [phone] | | | 2012 | | [place], [place] | | | | | | [address] | | | | | | [phone] | | | +--------+ + + + [...] documented as of this encounter Discharge Summaries Nirmal Vidal PA - 07/13/2013 12:50 PM PDT PATIENT NAME: IRAIDA DAMICO Sex/Age: M / 78Y : 1935 ADMISSION DATE: 07/08/2013 DISCHARGE DATE: 07/13/2013 [id number] / [id number] Mr. Damico is a 78-year-old gentleman with symptomatic aortic valve regurgitation. He state s that over the previous year or so he has experienced worsening fatigue, especially over t he past six months, with less and less exertion. He reports that his exercise capacity has been dramatically reduced compared to two years ago. However, he denies any paroxysmal noc turnal dyspnea, orthopnea, palpitations or pedal edema. At this point, he was referred to Iona Ceballos for surgical intervention. DATE OF THE PROCEDURE: 07/08/2013. PREOPERATIVE DIAGNOSIS: Aortic valve regurgitation. POSTOPERATIVE DIAGNOSIS: Aortic valve regurgitation. PROCEDURE PERFORMED: Aortic valve replacement with a 27 mm Medtronic Gonzalez II bioprosthe sis. Overall, the patient tolerated the procedure well and was transferred in stable condition to the CICU where he was extubated in a timely fashion. On the morning of postop day one, he was awake, alert and neurologically intact; however, he was somewhat confused. He did reorient quickly. Physical exam showed his heart to be mare ting in a sinus rhythm in the 70s, with blood pressures running a in the 140s/70s. His ches t was clear to auscultation. His chest x-ray looked good. His wounds were clean and dry. Labs that first day included hemoglobin and hematocrit of 12 and 36, platelet count 189,00 0, sodium 142, potassium 3.9 and creatinine 0.9. Low-dose metoprolol was started, Losartan was restarted and the patient transferred to the floor where his activity level was increas ed as tolerated. Over the next 24 hours his blood pressure remained high; however, his hea rt rate was down in the 60s, and therefore Norvasc was added to his regimen, beta ken w as continued, albeit, at a low dose. He also developed a pericardial rub, but did not have any clinical signs or symptoms of pericarditis. For the most part, the remainder of his hospitalization was unremarkable. He remained in a sinus rhythm with heart rates ranging from the mid 50s to the high 70s. The patient did no t have any symptoms of his bradycardia whatsoever. His activity level was coming along quit e nicely, and by 07/13 he was ready for discharge. At that point his lungs remained clear t o auscultation. He did not have any peripheral edema. His wounds were healing IRAIDA DAMICO ADM:07/08/13 [id number] 07/13/13 DIS IN DISCHARGE SUMMARY [id number] [facility] Nirmal Vidal [facility] MD Theo Sow THIS REPORT IS CONFIDENTIAL AND NOT TO BE RELEASED WITHOUT PROPER AUTHORIZATION. [facility] without any signs of complications and he was instructed to follow up with Dr. Ceballos, as well as with his transportation officer in approximately one month in [place]. His transportation officer, Dr. Hughes, actually does go to [place] and they may see Dr. Hughes there. This will be decided by the patient within the next couple of weeks. He is also to see his primary care doctor, Dr. Ralph Chatman within the next couple of weeks. DISCHARGE MEDICATIONS: 1. Excedrin tablets once a day. 2. Loperamide 2 mg every morning. 3. Losartan 100 mg every morning. 4. Prilosec 20 mg daily. 5. Norvasc 5 mg daily. 6. Metoprolol 25 mg twice a day. 7. Senokot 1 tablet twice a day p.r.n. constipation. He is also given a prescription for [place] 5 mg tablet every three hours p.r.n. pain, quant ity #60 with no refills. POONAM Chavez MD P P TV/lat #[id number] cc: MD Ralph Buchanan MD Torrey Vail, PA-C Neil K. Worrall, MD Electronically Signed 07/24/13 0751 Kriss Ceballos MD IRAIDA DAMICO ADM:07/08/13 [id number] 07/13/13 DIS IN DISCHARGE SUMMARY [id number] [facility] Nirmal Vidal [facility] Kriss Ceballos MD R THIS REPORT IS CONFIDENTIAL AND NOT TO BE RELEASED WITHOUT PROPER AUTHORIZATION.Electronica lly signed by LINO Knight at 07/24/2013 7:52 AM PDTdocumented in this encounter Progress Notes Corrie Mendez ARNP - 07/10/2013 11:11 AM PDT Diabetes Progress Note Patient information/HPI: Diabetes Chief Complaint: stress hyperglycemia, postop blood glucose mgmt Consulted by: Dr Ruiz Context: Initiated: 07/10/13 at 1111 for IRAIDA DAMICO, a 78yo Male admitted on . Associated signs/symptoms: fatigue Modifying factors: postoperative stress Diabetic medications: no hx of DM Review of Systems: Constitutional: feeling well Nutritional: eating well, drinking well Respiratory: no cough, no wheezing Cardiovascular: no chest pain Gastrointestinal: no nausea Neurologic: no symptoms reported Psychologic: good mood, oriented Diabetes Service Physical Exam Physical Examination: Current VS, I O's: Date Temp Pulse Resp B/P Pulse Ox FiO2 07/09-07/10 37.7-100.2 59-70 16-20 118-169/63-90 93-99 Date Time Temp Pulse Resp B/P Pulse O2 O2 Flow FiO2 Ox Delivery Rate 07/10 0800 98.5 68 16 164/69 98 Room Air 07/10 0747 95 RA 07/10 0416 99.2 67 20 169/72 95 Room Air 07/10 0700 Intake Total 2258.00 Output Total 738.00 Balance 1520.00 Today's Weight:83.60 Previous Weight: 81.30 Weight change: 2.30 Height: 5ft 10.00 BMI: 26.4 General appearance: well developed, well nourished, no apparent distress Cardiovascular: n o accute changes Respiratory: decreased breath sounds, no respiratory distress, no wheezing Abdominal: soft , NT, ND Neurologic: alert, normal mood/affect, oriented Skin: warm/dry, normal color Current labs: Date: [07/09] Blood Glucose/Intake and insulin data: Date: [07/10] Time Blood PO/TF Pr/nu Niecy Blood Pr/TF Pr/Nu Niecy Glucose Intake units units Glucose intake units units Noct 150 0 AM 130 48 6 gtt Noon 135 45 3 0 PM 127 16 1 0 HS/MN 114 07/10 0254 Chemistry Sodium (135 - 145 mmol/L) 137 Potassium (3.5 - 5.0 mmol/L) 4.5 Chloride (99 - 109 mmol/L) 104 Anion Gap (5 - 16 mmol/L) 6 BUN (8 - 25 mg/dL) 28 H Creatinine (0.70 - 1.30 mg/dL) 0.99 Estimated GFR (>60) >60 Glucose (65 - 99 mg/dL) 150 H Hematology WBC (3.8 - 11.0 K/uL) 10.1 Hgb (13.2 - 17.0 g/dL) 12.4 L Hct (39.0 - 50.0 %) 37.2 L Plt Count (150 - 400 K/uL) 174 Reviewed by me today: medications, labs, vital signs Current medications reviewed? Yes Diabetes Service A/P Assessment/Plan: 78 y/o male with a hx of Aortic stenosis admitted to [facility] and underwent AVR 07/08. * Stress hyperglycemia resolving, BG optimal at present. BG 120 this AM, AIC 5.5 % and BM I 25%. * S/P AVR POD #2 Plan: * Discontinue humalog 1:15 * sCALE 1 CORRECTION * bg ac hs * mONITOR AND MAKE CHANGES INDICATED. Counseling: Total time of approximately 25 minutes was spent with the patient and/or patient 's family , and/or on the patient's floor/unit, of which more than 50% was spent counseling and/or co ordination the patient's care as outlined above. Topics discussed by Diabetes Service: post open heart BG mgmt, blood sugar monitoring CC: //[email or web address]// Electronically Signed By: Corrie Mendez NP 07/10/13 1115 IRAIDA DAMICO ADM:07/08/13 [id number] ADM IN PROGRESS NOTE [id number] P [facility] Corrie Mendez NP E-Sign: [facility] THIS REPORT IS CONFIDENTIAL AND NOT TO BE RELEASED WITHOUT PROPER AUTHORIZATION. Corrie Shaver ARNP - 07/09/2013 3:05 PM P DT Diabetes Progress Note Patient information/HPI: Diabetes Chief Complaint: stress hyperglycemia, postop blood glucose mgmt Consulted by: Dr Ruiz Context: Initiated: 07/09/13 at 1506 for IRAIDA DAMICO, a 78yo Male admitted on . Associated signs/symptoms: fatigue Modifying factors: postoperative stress Diabetic medications: no hx of DM Review of Systems: Constitutional: feeling well Nutritional: decreased appetite Respiratory: no cough, no wheezing Cardiovascular: some chest wall pain Gastrointestinal: no nausea Neurologic: no symptoms reported Psychologic: good mood Endocrine: no symptoms reported PMH/FH/Social history: Medical history: hypertension, DJD, Aortic stenosis Surgical history: lumbar fusion, right knee replacement, Tonsillectomy Family/Social histo ry: Smoking status: Never Smoker Qty: Chew? Qty: Alcohol use? Y How often: 1-2 X WEEK Illicit drugs? N Last used: Employment: retired Living status: live with () Diabetes Service Physical Exam Physical Examination: Current VS, I O's: Date Temp Pulse Resp B/P Pulse Ox FiO2 07/08-07/09 36.6-37.8 59-80 13-22 98-131/50-63 95-100 60 Date Time Temp Pulse Resp B/P Pulse O2 O2 Flow FiO2 Ox Delivery Rate 07/09 1200 37.7 59 19 118/63 96 Room Air 07/09 0830 37.8 72 22 130/60 95 Room Air 07/09 0830 95 07/09 0815 RA 07/09 0700 Intake Total 3493.00 Output Total 1657.00 Balance 1836.00 Today's Weight:81.30 Previous Weight: 75.10 Weight change: 6.20 Height: 5ft 10.00 BMI: 25.7 General appearance: well developed, well nourished, no apparent distress Cardiovascular: r egular rate/rhythm Respiratory: lungs clear, no respiratory distress, no accessory muscle use, no dyspnea, no wheezing Abdominal: soft Neurologic: alert, normal mood/affect, slightly confused Skin: warm/dry, normal color Current labs: 07/09 07/08 07/08 07/08 07/08 0423 2239 1927 1731 1728 Chemistry Sodium (135 - 145 mmol/L) 142 Potassium (3.5 - 5.0 mmol/L) 3.9 4.0 5.1 H Chloride (99 - 109 mmol/L) 112 H Anion Gap (5 - 16 mmol/L) 4 L BUN (8 - 25 mg/dL) 21 Creatinine (0.70 - 1.30 mg/dL) 0.90 Estimated GFR (>60) >60 Glucose (65 - 99 mg/dL) 142 H 204 H 170 H Hematology WBC (3.8 - 11.0 K/uL) 9.9 8.2 8.9 Hgb (13.2 - 17.0 g/dL) 12.4 L 12.1 L 12.2 L Hct (39.0 - 50.0 %) 35.9 L 36.4 L 36.6 L Plt Count (150 - 400 K/uL) 189 185 182 07/08 07/08 07/08 1654 1605 1518 Chemistry Sodium (() mmol/L) 143 140 Potassium (() mmol/L) 5.5 6.6 7.1 Glucose (() mg/dL) 165 146 143 Hematology Hgb (() g/dL) 12.1 10.7 Reviewed by me today: medications, labs, allergies, I O's, nursing notes, H P, vital signs Current medications reviewed? Yes Diabetes Service A/P Assessment/Plan: 78 y/o male with a hx of Aortic stenosis admitted to [facility] and underwent AVR 07/08. * Stress hyperglycemia with current insulin need at 3.2 units per hour. AIC 5.5% and antic ipate his need to DROP this afternoon as BMI 25%. * S/P AVR POD #1 Plan: * Continue insulin gtt until this afternoon * humalog 1:15 * sCALE 1 CORRECTION WHEN GTT DISCONTINUED * bg ac hs * mONITOR AND MAKE CHANGES INDICATED. Counseling: Total time of approximately [35] minutes was spent with the patient and/or patient's famil y, and/or on the patient's floor/unit, of which more than 50% was spent counseling and/or c oordination the patient's care as outlined above. Topics discussed by Diabetes Service: blood sugar monitoring, insulin infusion CC: //[email or web address]/ / Electronically Signed By: Corrie Mendez NP 07/09/13 1513 IRAIDA DAMICO ADM:07/08/13 [id number] ADM IN PROGRESS NOTE [id number] [facility] Corrie Mendez NP E-Sign: [facility] THIS REPORT IS CONFIDENTIAL AND NOT TO BE RELEASED WITHOUT PROPER AUTHORIZATION. documented in this encounter Procedure Notes Joaquin Isabel MD - 07/09/2013 2:11 AM PDTHeart Rate 64 P-R Interval 208 QRSD Interval 86 QT Interval 400 QTC Interval 413 P Brainard -2 QRS Brainard 30 T Wave Brainard 3 EKG Severity - ABNORMAL ECG - SINUS RHYTHM VENTRICULAR BIGEMINY ABERRANT COMPLEX, POSSIBLY SUPRAVENTRICULAR LEFT VENTRICULAR HYPERTROPHY Electronically Signed 07/09/13 0211 Joaquin Isabel MD KWAKU DAMICO RNJoan F ADM:07/08/13 [id number] ADM IN ELECTROCARDIOGRAM REPORT [id number] [facility] Joaquin Isabel MD E-Sign: [facility] THIS REPORT IS CONFIDENTIAL AND NOT TO BE RELEASED WITHOUT PROPER AUTHORIZATION.Electronica lly signed by Joaquin Isabel MD at 07/10/2013 8:05 AM PDTKai Edwards MD - 07/08/2013 6:06 PM PDTHeart Rate 59 P-R Interval 229 QRSD Interval 90 QT Interval 436 QTC Interval 432 P Brainard -5 QRS Brainard 33 T Wave Brainard -40 EKG Severity - ABNORMAL ECG - SINUS RHYTHM FIRST DEGREE AV BLOCK Electronically Signed 07/08/13 1806 Kai Edwards MD KWAKU DAMICO RNE F ADM:07/08/13 [id number] ADM IN ELECTROCARDIOGRAM REPORT [id number] [facility] Kai Edwards MD E-Sign: [facility] THIS REPORT IS CONFIDENTIAL AND NOT TO BE RELEASED WITHOUT PROPER AUTHORIZATION.Electronica lly signed by Kai Edwards MD at 07/08/2013 10:20 PM PDTdocumented in this encounter Consult Notes Kriss Ceballos MD - 07/07/2013 1:30 PM PDT PATIENT NAME: IRAIDA DAMICO CONSULTING: Kriss Ceballos MD REQUESTING: Mio Hughes MD and Ralph Chatman MD DATE OF ADMISSION: 07/08/20 DATE OF CONSULTATION: 07/07/2013 [id number] / [id number] AGE/SEX: 78Y / M : 1935 CARDIOTHORACIC SURGERY CONSULTATION INDICATION FOR CONSULTATION: Aortic valve regurgitation. HISTORY OF PRESENT ILLNESS: Sharif is a delightful, 78-year-old gentleman with symptomatic ao rtic valve regurgitation. He has noted over the last year or so that he has had worsening f atigue and over the last six months or so has had dyspnea on exertion which occurs with wal shahid up hill or walking up a flight of stairs. He reports that his exercise capacity is michelle matically reduced compared to two years ago. He denies paroxysm nocturnal dyspnea, orthopn ea, palpitations or pedal edema. PAST MEDICAL HISTORY: 1. Aortic valve regurgitation. 2. Hypertension. 3. Degenerative joint disease. 4. Epidural abscess in 2003. PAST SURGICAL HISTORY: 1. Tonsillectomy and adenoidectomy as a young man. 2. Right knee arthroscopy and then subsequent right knee replacement 11/27/2005. 3. Laminectomy in 2003 for his epidural abscess. 4. Lumbar fusion in 2009. MEDICATIONS: 1. Cozaar 100 mg a day. 2. Vitamins. ALLERGIES: He is INTOLERANT OF LISINOPRIL which gives him a cough. FAMILY HISTORY: Negative for premature atherosclerosis or valvular disorders. SOCIAL HISTORY: He is to Jadyn who is here with him. 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 He has a distant history of tobacco abuse, quit smoking about 50 years ago. REVIEW OF SYSTEMS: KWAKU DAMICO RNE F ADM:07/08/13 [id number] 07/13/13 DIS IN CONSULTATION [id number] [facility] Kriss Ceballos MD E-Sign: [facility] THIS REPORT IS CONFIDENTIAL AND NOT TO BE RELEASED WITHOUT PROPER AUTHORIZATION. [facility] CONSTITUTIONAL: No fevers or chills. EYES: No recent changes in vision. ENT: No recent upper respiratory infections or nasal discharge. CARDIOVASCULAR: See above. PULMONARY: No cough, hemoptysis, or sputum production. GASTROINTESTINAL: No nausea, vomiting, change in bowel habits or diarrhea. NEUROLOGIC: No transient ischemic attacks, strokes, or seizures. The rest of a full review of systems is negative. PHYSICAL EXAMINATION: GENERAL: Delightful gentleman appearing approximately his stated age in no acute distress. VITAL SIGNS: Height 5 feet 10 and 185 pounds. Blood pressure 126/70, pulse 64 and regular. HEENT: Normocephalic, atraumatic. Oropharynx clear. NECK: Soft, supple. No lymphadenopathy. No carotid bruits. CHEST: Clear to auscultation wi th no chest wall masses or tenderness. CARDIAC: Regular rate and rhythm. Normal S1 and S2 w ith a 2 out of 6 diastolic murmur. ABDOMEN: Soft, nontender, active bowel sounds. EXTREMITIES: No signs of clubbing, edema or varicosities. SKIN: No rashes or breakdown. VASCULAR: 2+ pulses throughout. DATA: Heart catheterization from yesterday which demonstrates a right dominant system with pristine-appearing coronary arteries and on aortography, there is 4+ aortic valve regurgit ation. Echocardiogram from 07/06/2013 showed mild concentric left ventricular hypertrophy a nd mild aortic root enlargement to 3.8 cm with his left ventricle dilated to 5.7 cm in dannie stole with preserved left ventricular function. A previous echocardiogram from 01/26/2013 h ad demonstrated his left ventricle 64 mm in diameter, also with preserved ventricular funct ion and severe regurgitation. ASSESSMENT AND PLAN: Thank you for asking me to see this very pleasant gentleman who prese nts with symptomatic aortic valve regurgitation as detailed above. I had a long discussion with Iraida and his Jadyn about his diagnosis and the rationale for proceeding to s urgical management. The indications, risks, benefits and alternatives of surgery have been discussed with them and they wish to proceed. In addition, valve prosthetic choices have b een reviewed and a bioprosthetic valve selected. PHILLIPIRAIDA Cassandra ADM:07/08/13 [id number] 07/13/13 DIS IN CONSULTATION [id number] [facility] Kriss Ceballos MD E-Sign: [facility] THIS REPORT IS CONFIDENTIAL AND NOT TO BE RELEASED WITHOUT PROPER AUTHORIZATION. [facility] Again, thank you for your kind referral of Iraida. I look forward to performing his surge ry tomorrow. Kriss Ceballos MD P P MG/alek #[id number] cc: MD Ralph Buchanan MD Neil K. Worrall, MD Electronically Signed 07/24/13 0750 Kriss Ceballos MD DAMICOKWAKU MAISHA Trujillo ADM:07/08/13 [id number] 07/13/13 DIS IN CONSULTATION [id number] [facility] Kriss Ceballos MD E-Sign: [facility] THIS REPORT IS CONFIDENTIAL AND NOT TO BE RELEASED WITHOUT PROPER AUTHORIZATION.Electronica lly signed by Kriss Ceballos MD at 07/24/2013 7:52 AM PDTdocumented in this encounter Miscellaneous Notes Op Note - Kriss Ceballos MD - 07/08/2013 4:39 PM PDT PATIENT NAME: IRAIDA DAMICO Date of : 1935 Age/Sex: 78Y / M SURGEON: Kriss Ceballos MD SURGERY DATE: 07/08/2013 [id number] / [id number] 1[employer]: Curtis Sexton PA-C. PREOPERATIVE DIAGNOSIS: Aortic valve regurgitation. POSTOPERATIVE DIAGNOSIS: Aortic valve regurgitation. PROCEDURE: Aortic valve replacement with 27-mm Medtronic Gonzalez II bioprosthesis. INDICATIONS FOR SURGERY: Sharif is a delightful 78-year-old gentleman with symptomatic aortic valve regurgitation as detailed in my separate consultation note from yesterday. The indic ations, risks, benefits, and alternatives were discussed with him at that time and again morning, and he elected to proceed. In addition, valve prosthetic choices were discusse d and a bioprosthetic valve selected. DESCRIPTION OF PROCEDURE: Sharif was brought to the operating room and placed in the supine p osition. After satisfactory induction of general endotracheal anesthesia his chest, abdomen , groin and legs were prepped and draped in a sterile field in the usual fashion. Intraoper ative echocardiography confirmed the diagnosis and did not demonstrate any other structura l heart disease. A median sternotomy incision was then performed and the pericardium opened and suspended from the chest wall. There was no palpable atherosclerosis in the ascending aorta. The patient was then systemically heparinized and the ascending aorta and the right atrial appendage were then cannulated for cardiopulmonary bypass, and a retrograde coronar y sinus perfusion catheter placed in the right atrium. He was then placed on cardiopulmonar y bypass and temperature allowed to drift. The aorta was then crossclamped and the heart ar rested with antegrade and retrograde cardioplegia. Maintenance cardioplegia was given every 15 to 20 minutes throughout the rest of the procedure in retrograde fashion. A left ventr icular vent was placed through the right pulmonary vein. The aorta was then opened via an oblique incision. The aortic valve leaflets were inspecte d and these were fenestrated but not otherwise structurally deformed but just relatively sm all-appearing and did not coapt centrally. The leaflets were excised and the annulus was th en sized and easily admitted a 27-mm Medtronic Gonzalez II bioprosthetic valve size and kelin s this valve was selected and rinsed. A total of 18 pledgeted 2-0 Ethibond sutures were the n placed in a horizontal mattress fashion circumferentially around the annulus. These were then passed through the valve prosthesis which was seated and tied down. There was excellen t SHERITA DAMICO ADM:07/08/13 [id number] 07/13/13 DIS IN OPERATIVE REPORT [id number] [facility] Kriss Ceballos MD E-SIGN: [facility] THIS REPORT IS CONFIDENTIAL AND NOT TO BE RELEASED WITHOUT PROPER AUTHORIZATION. [facility] seating and function of the valve. The aorta was then closed in two layers of 4-0 Prolene suture. A dose of warm cardioplegia was then given in retrograde fashion. The aorta and lef t heart were then de-aired, the crossclamp removed, and we continued to rewarm him to normo thermia. He regained a spontaneous sinus rhythm. After a suitable period of reperfusion an d complete de-airing of the heart, he was then weaned from cardiopulmonary bypass uneventfu lly. The heparin was then reversed with protamine and the patient decannulated. A bipolar r ight ventricular pacing wire and two right atrial pacing leads were then placed. Once metic ulous hemostasis was obtained and the pericardium was reapproximated, the sternum wired sh ut and the soft tissues closed in multiple layers of running absorbable suture. The patient tolerated the procedure well without any intraoperative complications and then was taken t o the Cardiac Intensive Care Unit in serious but stable condition. Crossclamp time was 57 m inutes and total time on cardiopulmonary bypass was 74 minutes. Final echocardiography dem onstrated normal left and right ventricular function with a well-seated and functioning aor tic valve prosthesis without perivalvular leak. Kriss Ceballos MD P P MG/bird #[id number] cc: MD Ralph Buchanan MD Neil K. Worrall, MD Electronically Signed 07/24/13 0750 Kriss Ceballos MD KWAKU DAMICO MAISHA F ADM:07/08/13 [id number] 07/13/13 DIS IN OPERATIVE REPORT [id number] [facility] Kriss Ceballos MD E-SIGN: [facility] THIS REPORT IS CONFIDENTIAL AND NOT TO BE RELEASED WITHOUT PROPER AUTHORIZATION.Electronica lly signed by Kriss Ceballos MD at 07/24/2013 7:52 AM Hao Celaya MD - 013 1:25 PM PDT Adult Intra-Op FLORENTIN Report Patient Name: IRAIDA DAMICO Study Date: 07/08/2013 : 1935 Gender: Male Age: 78 yrs Location: [facility] OR # 22 BP: 90/55 mmHg HR: 65 Height: 70 in Weight: 184 lb BSA: 2.0 meters2 Reason For Study: AVR - SCA History: Aortic Insufficiency Rhythm: SR INTERPRETATION SUMMARY: A pre- and post-op transesophageal echocardiogram with color flow Doppler was performed [facility] open heart surgery. The left ventricle is borderline dilated. The LV end diastolic dimension (LVIDd) was measured at 5.3 cm. There is normal left ventri cular wall thickness. The left ventricular systolic function is within normal limits. No regional wall motion ab normalities are noted. The right ventricle is normal in size and function. The left and right atrial chambers are both normal in size. The mitral valve appears brian l in structure and function. The tricuspid valve leaflets are thin and pliable. No tricuspid regurgitation is seen. Moderate to severe aortic insufficiency. The pulmonic valve appears normal in structure and function. The aortic root is normal siz e. Post-operatively, a normally functioning 27mm Gonzalez II Ultra porcine heart valve is seen in the aortic position. The aortic valve peak systolic gradient was measured at 17 mm Hg. The aortic valve mean systolic gradient was measured at 8 mm Hg. No AI. Right ventricular systolic function appears within normal limits. Left Ventricle: The left ventricle is borderline dilated. The LV end diastolic dimension (LVIDd) was measu red at 5.3 cm. There is no thrombus. There is normal left ventricular wall thickness. The l eft ventricular systolic function is within normal limits. No regional wall motion abnormal ities are noted. Right Ventricle: The right ventricle is normal in size and function. The right ventricular wall motion is n ormal. Atria: KWAKU DAMICO RNE F ADM:07/08/13 [id number] [facility] IN ECHOCARDIOGRAPHY REPORT [id number] [facility] Hao Estrella MD E-Sign: [facility] THIS REPORT IS CONFIDENTIAL AND NOT TO BE RELEASED WITHOUT PROPER AUTHORIZATION. No obvious septal defect is seen with color Doppler. The left and right atrial chambers ar e both normal in size. No atrial thrombus is seen. Mitral: The mitral valve appears normal in structure and function. There is no mitral regurgitatio n noted. Tricuspid Valve: The tricuspid valve leaflets are thin and pliable. No tricuspid regurgitation is seen. Aortic Valve: The aortic valve is trileaflet. Moderate to severe aortic insufficiency. Pulmonic Valve: The pulmonic valve appears normal in structure and function. There is no pulmonic valvular insufficiency. Vessels: The aortic root is normal size. The ascending aorta appears grossly normal. The aortic arc h appears grossly normal. Other: There is no pericardial effusion. Surgical Procedure: Aortic valve replacement (AVR). Post-Op Findings: Post-operatively, a normally functioning 27mm Gonzalez II Ultra porcine heart valve is seen in the aortic position. The aortic valve peak systolic gradient was measured at 17 mm Hg. The aortic valve mean systolic gradient was measured at 8 mm Hg. No AI. Post-Op Function: No new regional wall motion abnormalities are seen. Right ventricular systolic function ap pears within normal limits. MMode 2D Measurements and Calculations: LVIDd: 5.3 cm Doppler Measurements and Calculations: Ao V2 max: 206.5 cm/sec Ao max P.1 mmHg AI dec slope: 268.7 cm/sec2 Ao mean P.9 mmHg AI P1/2t: 422.6 msec Ao V2 VTI: 44.4 cm Interpreting Physician: Hao Estrella MD KWAKU DAMICO RNE F ADM:07/08/13 [id number] ADM IN ECHOCARDIOGRAPHY REPORT [id number] [facility] Hao Estrella MD E-Sign: [facility] THIS REPORT IS CONFIDENTIAL AND NOT TO BE RELEASED WITHOUT PROPER AUTHORIZATION. electronically signed on 07/11/2013 03:55 PM Ordering Physician: Kriss Ceballos MD Referring Physician: Mio Hughes MD Type Casting Machine Operator: Suzanne Adkins PHILLIPKWAKU JUSTINJoan Trujillo ADM:07/08/13 [id number] ADM IN ECHOCARDIOGRAPHY REPORT [id number] [facility] Hao Estrella MD E-Sign: [facility] THIS REPORT IS CONFIDENTIAL AND NOT TO BE RELEASED WITHOUT PROPER AUTHORIZATION.Electronica lly signed by Hao Estrella MD at 07/11/2013 4:15 PM PDTdocumented in this encounter Plan of Treatment +--------+ + + + + | Date | Type | Specialty | Care Team | Description | +--------+ + + + + | 06/23/ | Office | Cardiology | Rwody Haines | | | 2019 | Visit | | MD [address] | | [address] | [address] | | | | | | [place] [address] | | | | | | [phone] | | | | | | | | +--------+ + + + + | 06/23/ | Procedure | Cardiology | | | 2019 | visit | | | | +--------+ + + + + | 07/06/ | Office | Neurology | Dada Goodwin, | | | 2019 | Visit | | MD [address] | | | | | | [place] [address] | | | | | | [phone] | | | | | | | | +--------+ + + + + documented as of this encounter Procedures + +--------+ + + + | Procedure Name | Priori | Date/Time | Associated Diagnosis | Comments | | | ty | | | | + +--------+ + + + | URINALYSIS WITH | Routin | 07/13/2013 | | Results for this | | MICROSCOPIC | e | 11:47 AM | | procedure are in the | | | | PDT | | results section. | + +--------+ + + + | XR CHEST 2 VIEWS | | 07/13/2013 | | Results for this | | | | 9:44 AM | | procedure are in the | | | | PDT | | results section. | + +--------+ + + + | CBC NO DIFFERENTIAL | Routin | 07/13/2013 | | Results for this | | | e | 9:28 AM | | procedure are in the | | | | PDT | | results section. | + +--------+ + + + | POC GLUCOSE | Routin | 07/11/2013 | | Results for this | | | e | 7:56 AM | | procedure are in the | | | | PDT | | results section. | + +--------+ + + + | CBC NO DIFFERENTIAL | Routin | 07/11/2013 | | Results for this | | | e | 4:19 AM | | procedure are in the | | | | PDT | | results section. | + +--------+ + + + | BASIC METABOLIC | Routin | 07/11/2013 | | Results for this | | PANEL | e | 4:19 AM | | procedure are in the | | | | PDT | | results section. | + +--------+ + + + | POC GLUCOSE | Routin | 07/10/2013 | | Results for this | | | e | 8:56 PM | | procedure are in the | | | | PDT | | results section. | + +--------+ + + + | POC GLUCOSE | Routin | 07/10/2013 | | Results for this | | | e | 4:46 PM | | procedure are in the | | | | PDT | | results section. | + +--------+ + + + | POC GLUCOSE | Routin | 07/10/2013 | | Results for this | | | e | 12:08 PM | | procedure are in the | | | | PDT | | results section. | + +--------+ + + + | POC GLUCOSE | Routin | 07/10/2013 | | Results for this | | | e | 8:31 AM | | procedure are in the | | | | PDT | | results section. | + +--------+ + + + | CBC NO DIFFERENTIAL | Routin | 07/10/2013 | | Results for this | | | e | 2:54 AM | | procedure are in the | | | | PDT | | results section. | + +--------+ + + + | BASIC METABOLIC | Routin | 07/10/2013 | | Results for this | | PANEL | e | 2:54 AM | | procedure are in the | | | | PDT | | results section. | + +--------+ + + + | POC GLUCOSE | Routin | 07/09/2013 | | Results for this | | | e | 8:50 PM | | procedure are in the | | | | PDT | | results section. | + +--------+ + + + | POC GLUCOSE | Routin | 07/09/2013 | | Results for this | | | e | 5:21 PM | | procedure are in the | | | | PDT | | results section. | + +--------+ + + + | POC GLUCOSE | Routin | 07/09/2013 | | Results for this | | | e | 2:51 PM | | procedure are in the | | | | PDT | | results section. | + +--------+ + + + | POC GLUCOSE | Routin | 07/09/2013 | | Results for this | | | e | 12:18 PM | | procedure are in the | | | | PDT | | results section. | + +--------+ + + + | POC GLUCOSE | Routin | 07/09/2013 | | Results for this | | | e | 11:30 AM | | procedure are in the | | | | PDT | | results section. | + +--------+ + + + | POC GLUCOSE | Routin | 07/09/2013 | | Results for this | | | e | 8:37 AM | | procedure are in the | | | | PDT | | results section. | + +--------+ + + + | POC GLUCOSE | Routin | 07/09/2013 | | Results for this | | | e | 6:24 AM | | procedure are in the | | | | PDT | | results section. | + +--------+ + + + | CBC NO DIFFERENTIAL | Routin | 07/09/2013 | | Results for this | | | e | 4:23 AM | | procedure are in the | | | | PDT | | results section. | + +--------+ + + + | BASIC METABOLIC | Routin | 07/09/2013 | | Results for this | | PANEL | e | 4:23 AM | | procedure are in the | | | | PDT | | results section. | + +--------+ + + + | POC GLUCOSE | Routin | 07/09/2013 | | Results for this | | | e | 4:02 AM | | procedure are in the | | | | PDT | | results section. | + +--------+ + + + | XR CHEST PA OR AP | | 07/09/2013 | | Results for this | | | | 3:58 AM | | procedure are in the | | | | PDT | | results section. | + +--------+ + + + | POC GLUCOSE | Routin | 07/09/2013 | | Results for this | | | e | 3:07 AM | | procedure are in the | | | | PDT | | results section. | + +--------+ + + + | POC GLUCOSE | Routin | 07/09/2013 | | Results for this | | | e | 2:06 AM | | procedure are in the | | | | PDT | | results section. | + +--------+ + + + | POC GLUCOSE | Routin | 07/09/2013 | | Results for this | | | e | 1:09 AM | | procedure are in the | | | | PDT | | results section. | + +--------+ + + + | POC GLUCOSE | Routin | 07/09/2013 | | Results for this | | | e | 12:18 AM | | procedure are in the | | | | PDT | | results section. | + +--------+ + + + | CBC NO DIFFERENTIAL | Routin | 07/08/2013 | | Results for this | | | e | 10:39 PM | | procedure are in the | | | | PDT | | results section. | + +--------+ + + + | POTASSIUM | Routin | 07/08/2013 | | Results for this | | | e | 10:39 PM | | procedure are in the | | | | PDT | | results section. | + +--------+ + + + | POC GLUCOSE | Routin | 07/08/2013 | | Results for this | | | e | 10:37 PM | | procedure are in the | | | | PDT | | results section. | + +--------+ + + + | POC GLUCOSE | Routin | 07/08/2013 | | Results for this | | | e | 10:00 PM | | procedure are in the | | | | PDT | | results section. | + +--------+ + + + | POC GLUCOSE | Routin | 07/08/2013 | | Results for this | | | e | 8:58 PM | | procedure are in the | | | | PDT | | results section. | + +--------+ + + + | GLUCOSE, RESPIRATORY | Routin | 07/08/2013 | | Results for this | | | e | 7:27 PM | | procedure are in the | | | | PDT | | results section. | + +--------+ + + + | BLOOD GAS, ARTERIAL | Routin | 07/08/2013 | | Results for this | | | e | 7:27 PM | | procedure are in the | | | | PDT | | results section. | + +--------+ + + + | POC GLUCOSE | Routin | 07/08/2013 | | Results for this | | | e | 6:28 PM | | procedure are in the | | | | PDT | | results section. | + +--------+ + + + | CBC NO DIFFERENTIAL | Routin | 07/08/2013 | | Results for this | | | e | 5:31 PM | | procedure are in the | | | | PDT | | results section. | + +--------+ + + + | GLUCOSE, RESPIRATORY | Routin | 07/08/2013 | | Results for this | | | e | 5:28 PM | | procedure are in the | | | | PDT | | results section. | + +--------+ + + + | BLOOD GAS, ARTERIAL | Routin | 07/08/2013 | | Results for this | | | e | 5:28 PM | | procedure are in the | | | | PDT | | results section. | + +--------+ + + + | POTASSIUM, WHOLE | Routin | 07/08/2013 | | Results for this | | BLOOD | e | 5:28 PM | | procedure are in the | | | | PDT | | results section. | + +--------+ + + + | MRSA NAAT | Routin | 07/08/2013 | | Results for this | | | e | 5:20 PM | | procedure are in the | | | | PDT | | results section. | + +--------+ + + + | BLOOD GAS , | Routin | 07/08/2013 | | Results for this | | ARTERIAL, SURGERY | e | 4:54 PM | | procedure are in the | | | | PDT | | results section. | + +--------+ + + + | XR CHEST PA OR AP | | 07/08/2013 | | Results for this | | | | 4:50 PM | | procedure are in the | | | | PDT | | results section. | + +--------+ + + + | BLOOD GAS , | Routin | 07/08/2013 | | Results for this | | ARTERIAL, SURGERY | e | 4:05 PM | | procedure are in the | | | | PDT | | results section. | + +--------+ + + + | LACTIC ACID, | Routin | 07/08/2013 | | Results for this | | ARTERIAL, SURGERY | e | 3:18 PM | | procedure are in the | | | | PDT | | results section. | + +--------+ + + + | CALCIUM, IONIZED, | Routin | 07/08/2013 | | Results for this | | SURGERY | e | 3:18 PM | | procedure are in the | | | | PDT | | results section. | + +--------+ + + + | BLOOD GAS PROFILE | Routin | 07/08/2013 | | Results for this | | ABG, VBG, POTASSIUM | e | 3:18 PM | | procedure are in the | | AND GLUCOSE, SURGERY | | PDT | | results section. | + +--------+ + + + | CHEMISTRY PROFILE, A | Routin | 07/08/2013 | | Results for this | | AND V, SURGERY | e | 2:49 PM | | procedure are in the | | | | PDT | | results section. | + +--------+ + + + | LACTATE(LACTIC | Routin | 07/08/2013 | | Results for this | | ACID), VENOUS | e | 2:49 PM | | procedure are in the | | | | PDT | | results section. | + +--------+ + + + | CHEMISTRY PROFILE, A | Routin | 07/08/2013 | | Results for this | | AND V, SURGERY | e | 2:28 PM | | procedure are in the | | | | PDT | | results section. | + +--------+ + + + | LACTATE(LACTIC | Routin | 07/08/2013 | | Results for this | | ACID), VENOUS | e | 2:28 PM | | procedure are in the | | | | PDT | | results section. | + +--------+ + + + | HEMOGLOBIN, SURGERY | Routin | 07/08/2013 | | Results for this | | | e | 2:12 PM | | procedure are in the | | | | PDT | | results section. | + +--------+ + + + | LACTIC ACID, | Routin | 07/08/2013 | | Results for this | | ARTERIAL, SURGERY | e | 1:30 PM | | procedure are in the | | | | PDT | | results section. | + +--------+ + + + | BLOOD GAS , | Routin | 07/08/2013 | | Results for this | | ARTERIAL, SURGERY | e | 1:30 PM | | procedure are in the | | | | PDT | | results section. | + +--------+ + + + | POC GLUCOSE | Routin | 07/08/2013 | | Results for this | | | e | 9:03 AM | | procedure are in the | | | | PDT | | results section. | + +--------+ + + + | SURGICAL PATHOLOGY | Routin | 07/08/2013 | | Results for this | | EXAM | e | 12:00 AM | | procedure are in the | | | | PDT | | results section. | + +--------+ + + + documented in this encounter Results Urinalysis With Microscopic (07/13/2013 11:47 AM PDT) + + + + + [...] + + + + | Specific | 1.016 | 1.001 - 1.030 | [facility] | | | [place] | | | [facility] | | | [...] + + + + + | [facility] | [address] | [place] [address] | | | [facility] | | | | | LABORATORY | | | | + + + + + XR Chest 2 VW (07/13/2013 9:44 AM PDT) + + | Specimen | + + | | + + + + + | Narrative | Performed At | + + + | Exam Performed Location: [facility] AND | MISCELANIOUS | | LATERAL CHEST X-RAY CLINICAL INFORMATION: Post heart surgery. | LAB | | COMPARISON: 07/09/2013, 07/08/2013, 07/07/2013, 12/21/2009. | | | FINDINGS: The patient is status post median sternotomy. The previous | | | central catheter and sheath have been removed. There is a slightly | | | ectatic thoracic aorta with some intramural calcification. The size | | | of the pericardial cardiac silhouette has decreased to upper limits | | | of normal. A prosthetic aortic valve is noted. The pulmonary franklyn | | | and pulmonary vasculature appear within normal limits. There is | | | better inspiratory expansion than on the previous examination with | | | some continued small amounts of bilateral pleural fluid and bibasilar | | | atelectatic changes. No new infiltrates identified. IMPRESSION: | | | The previous central catheter and sheath have been removed. There | | | is an improved inspiratory expansion. Heart size has decreased to | | | probably upper limits of normal. There are some continued | | | residual small pleural effusions and bibasilar atelectatic changes. | | | No new infiltrates identified. S: SQ ([id number]) Signed by: NAVID | | | MD CLEMENTINE | | + + + + + | Procedure Note | + + | Jorje, Rad Conversion - 07/29/2013 4:39 PM PDT Exam Performed Location: [facility] | | at [facility] AND LATERAL CHEST X-RAYCLINICAL INFORMATION:Post heart | | surgery.COMPARISON:07/09/2013, 07/08/2013, 07/07/2013, 12/21/2009.FINDINGS:The patient | | is status post median sternotomy. The previous centralcatheter and sheath have been | | removed. There is a slightly ectaticthoracic aorta with some intramural calcification. | | The size of thepericardial cardiac silhouette has decreased to upper limits ofnormal. A | | prosthetic aortic valve is noted. The pulmonary hilaand pulmonary vasculature appear | | within normal limits. There isbetter inspiratory expansion than on the previous | | examination withsome continued small amounts of bilateral pleural fluid andbibasilar | | atelectatic changes. No new infiltrates identified.IMPRESSION:The previous central | | catheter and sheath have been removed. Thereis an improved inspiratory expansion.Heart | | size has decreased to probably upper limits of normal.There are some continued residual | | small pleural effusions andbibasilar atelectatic changes. No new infiltrates | | identified.S: SQ ([id number]) Signed by: NAVID SPRING MD | |pericardial cardiac silhouette has decreased to upper limits of | |normal. A prosthetic aortic valve is noted. The pulmonary franklyn | |and pulmonary vasculature appear within normal limits. There is | |better inspiratory expansion than on the previous examination with | |some continued small amounts of bilateral pleural fluid and | |bibasilar atelectatic changes. No new infiltrates identified. | | | |IMPRESSION: | |The previous central catheter and sheath have been removed. There | |is an improved inspiratory expansion. | | | |Heart size has decreased to probably upper limits of normal. | | | |There are some continued residual small pleural effusions and | |bibasilar atelectatic changes. No new infiltrates identified. | | | | | |S: SQ ([id number]) Signed by: NAVID SPRING MD | + + + +---------+ + + | Performing | Address | City/State/Zipcode | Phone Number | | Organization | | | | + +---------+ + + | [facility] | | | [phone] | + +---------+ + + | [facility] | | | [phone] | + +---------+ + + CBC no Differential (07/13/2013 9:28 AM PDT) + + + + + + | Component | Value | Ref Range | Performed | Pathologist | | | | | At | Signature | + + + + + + | White Blood | 5.5 | 3.8 - 11.0 K/uL | [facility] | | | Cells | | | [facility] | | | | | [facility] | | | | | | [facility] | | | | | | [facility] | | | | | | LABORATORY | | + + + + + + | Red Blood | 4.15 (L) | 4.20 - 5.70 | [facility] | | | Cells | | M/uL | [facility] | | | | | | [facility] | | | | | | MED[facility] | | | | | | CENTER | | | | | | LABORATORY | | + + + + + + | Hemoglobin | 12.8 (L) | 13.2 - 17.0 | [facility] | | | | | g/dL | [facility] | | | | | [facility] | | | | | | [facility] | | | | | | CENTER | | | | | | LABORATORY | | + + + + + + | Hematocrit | 38.2 (L) | 39.0 - 50.0 % | [facility] | | | | | | [facility] | | [facility] | | [facility] | | | | | | [facility] | | | | | | CENTER | | | | | | LABORATORY | | + + + + + + | MCV | 92.1 | 80.0 - 100.0 fL | [facility] | | | | | | [facility] | | | | | [facility] | | | | | | [facility] | | | | | | CENTER | | | | | | LABORATORY | | + + + + + + | MCH | 30.8 | 27.0 - 34.0 pg | [facility] | | | | | | [facility] | | | | | [facility] | | | | | | [facility] | | | | | | CENTER | | | | | | LABORATORY | | + + + + + + | MCHC | 33.4 | 32.0 - 35.5 | [facility] | | | | | g/dL | [facility] | | | | | | [facility] | | | | | | MEDICAL | | | | | | CENTER | | | | | | LABORATORY | | + + + + + + | RDW-CV | 14.8 | 11.0 - 15.5 % | [facility] | | | | | | [facility] | | | | | [facility] | | | | | | [facility] | | | | | | CENTER | | | | | | LABORATORY | | + + + + + + | Platelet | 246 | 150 - 400 K/uL | [facility] [...] + + | [facility] | [address] | [place] [address] | | | [facility] | | | | | LABORATORY | | | | + + + + + POC Glucose (07/11/2013 7:56 AM PDT) + +---------+ + + + | Component | Value | Ref Range | Performed | Pathologist | | | | | At | Signature | + +---------+ + + + | Glucose, | 118 (H) | 65 - 99 mg/dL | [facility] | | | POC | | | [facility] | | | | | | [facility] | | | | | | [facility] | | | | | | [facility]ENTER | | | | | | LABORATORY | | + +---------+ + + + + + | Specimen | + + | | + + + + + + + | Performing | Address | City/State/Zipcode | Phone Number | | Organization | | | | + + + + + | [facility] | [address] | [place] [address] | | | [facility] | | | | | LABORATORY | | | | + + + + + Basic Metabolic Panel (07/11/2013 4:19 AM PDT) + + + + + + | Component | Value | Ref Range | Performed | Pathologist | | | | | At | Signature | + + + + + + | Na | 136 | 135 - 145 | [facility] | | | | | mmol/L | [facility] | | | | | | HE[facility] | | | | | | MEDICAL | | | | | | CENTER | | | | | | LABORATORY | | + + + + + + | K | 3.9 | 3.5 - 5.0 | [facility] | | | | | mmol/L | [facility] | | | | | | [facility] | | | | | | MEDICAL | | | | | | CENTER | | | | | | LABORATORY | | + + + + + + | Cl | 104 | 99 - 109 mmol/L | [facility] [...] + + + + | Glucose | 123 (H)Comment: [place] | 65 - 99 mg/dL | [facility] [...] + + + + | BUN | 24 | 8 - 25 mg/dL | [facility] | | | | | | [facility] | | | | | [facility] | | | | | | MED[facility] | | | | | | CENTER | | | | | | LABORATORY | | + + + + + + | Creatinine | 0.75Comment: IDMS | 0.70 - 1.30 | [facility] | | | | traceable creatinine | mg/dL | [facility] | | | | | | [facility] | | | | | | MEDICAL | | | | | | CENTER | | | | | | LABORATORY | | + + + + + + | Calcium | 9.2 | 8.5 - 10.2 | [facility] | [...] + + | [facility] | [address] | [place] [address] | | | [facility] | | | | | LABORATORY | | | | + + + + + CBC no Differential (07/11/2013 4:19 AM PDT) + + + + + + | Component | Value | Ref Range | Performed | Pathologist | | | | | At | Signature | + + + + + + | White Blood | 7.6 | 3.8 - 11.0 K/uL | [facility] | | | Cells | | | [facility] | | | | | | [facility] | | | | | | MEDICAL | | | | | | CENTER | | | | | | LABORATORY | | + + + + + + | Red Blood | 3.96 (L) | 4.20 - 5.70 | [facility] | | | Cells | | M/uL | [facility] | | | | | | [facility] | | | | | | MEDICAL | | | | | | CENTER | | | | | | LABORATORY | | + + + + + + | Hemoglobin | 12.0 (L) | 13.2 - 17.0 | [facility] | | | | | g/dL | [facility] | | | | | | [facility] | | | | | | MEDICAL | | | | | | CENTER | | | | | | LABORATORY | | + + + + + + | Hematocrit | 36.1 (L) | 39.0 - 50.0 % | [facility] | | | | | | [facility] | | | | | | [facility] | | | | | | [facility] | | | | | | CENTER | | | | | | LABORATORY | | + + + + + + | MCV | 91.3 | 80.0 - 100.0 fL | [facility] [...] + + + + | MCHC | 33.3 | 32.0 - 35.5 | [facility] | | | | | g/dL | [facility] | | | | | | HE[facility] | | | | | | MEDICAL | | | | | | CENTER | | | | | | LABORATORY | | + + + + + + | RDW-CV | 15.0 | 11.0 - 15.5 % | [facility] | | | | | | [facility] | | | | | | [facility] | | | | | | [facility] | | | | | | CENTER | | | | | | LABORATORY | | + + + + + + | Platelet | 165 | 150 - 400 K/uL | [facility] [...] + + | [facility] | [address] | [place] [address] | | | [facility] | | | | | LABORATORY | | | | + + + + + POC Glucose (07/10/2013 8:56 PM PDT) + +---------+ + + + | Component | Value | Ref Range | Performed | Pathologist | | | | | At | Signature | + +---------+ + + + | Glucose, | 112 (H) | 65 - 99 mg/dL | [facility] | | | POC | | | [facility] | | | | | | [facility] | | | | | | MEDICAL | | | | | | CENTER | | | | | | LABORATORY | | + +---------+ + + + + + | Specimen | + + | | + + + + + + + | Performing | Address | City/State/Zipcode | Phone Number | | Organization | | | | + + + + + | [facility] | [address] | [place] [address] | | | [facility] | | | | | LABORATORY | | | | + + + + + POC Glucose (07/10/2013 4:46 PM PDT) + +-------+ + + + | Component | Value | Ref Range | Performed | Pathologist | | | | | At | Signature | + +-------+ + + + | Glucose, | 96 | 65 - 99 mg/dL | [facility] | | | POC | | | [facility] | | | [...] + + | [facility] | [address] | [place] [address] | | | [facility] | | | | | LABORATORY | | | | + + + + + POC Glucose (07/10/2013 12:08 PM PDT) + +---------+ + + + | Component | Value | Ref Range | Performed | Pathologist | | | | | At | Signature | + +---------+ + + + | Glucose, | 111 (H) | 65 - 99 mg/dL | [facility] | | | P[facility] | | | [facility] | | | | | | [facility] | | | | | | [facility] | | | | | | [facility]ENTER | | | | | | LABORATORY | | + +---------+ + + + + + | Specimen | + + | | + + + + + + + | Performing | Address | City/State/Zipcode | Phone Number | | Organization | | | | + + + + + | [facility] | [address] | [place] [address] | | | [facility] | | | | | LABORATORY | | | | + + + + + POC Glucose (07/10/2013 8:31 AM PDT) + +---------+ + + + | Component | Value | Ref Range | Performed | Pathologist | | | | | At | Signature | + +---------+ + + + | Glucose, | 120 (H) | 65 - 99 mg/dL | [facility] | [facility] | | | | | | [facility] | | | | | | [facility]ENTER | | | | | | LABORATORY | | + +---------+ + + + + + | Specimen | + + | | + + + + + + + | Performing | Address | City/State/Zipcode | Phone Number | | Organization | | | | + + + + + | [facility] | [address] | [place] [address] | | | [facility] | | | | | LABORATORY | | | | + + + + + Basic Metabolic Panel (07/10/2013 2:54 AM PDT) + + + + + + | Component | Value | Ref Range | Performed | Pathologist | | | | | At | Signature | + + + + + + | Na | 137 | 135 - 145 | [facility] | | | | | mmol/L | [facility] | | | | | | HE[facility] | | | | | | MEDICAL | | | | | | CENTER | | | | | | LABORATORY | | + + + + + + | K | 4.5 | 3.5 - 5.0 | [facility] | | | | | mmol/L | [facility] | | | | | | [facility] | | | | | | MEDICAL | | | | | | CENTER | | | | | | LABORATORY | | + + + + + + | Cl | 104 | 99 - 109 mmol/L | [facility] [...] + + + + | Glucose | 150 (H)Comment: [place] | 65 - 99 mg/dL | [facility] | | | | [employer] Association | [...] + + + + | BUN | 28 (H) | 8 - 25 mg/dL | [facility] | | [facility] | | | | | [facility] | | | | | | [facility] | | | | | | [facility]ENTER | | | | | | LABORATORY | | + + + + + + | Creatinine | 0.99Comment: IDMS | 0.70 - 1.30 | [facility] | | | | traceable creatinine | mg/dL | [facility] | | | | | | [facility] | | | | | | MEDICAL | | | | | | CENTER | | | | | | LABORATORY | | + + + + + + | Calcium | 9.4 | 8.5 - 10.2 | [facility] | | | | | mg/dL | [facility] | | | | | | [facility] | | | | | | MED[facility] | | | | | | CENTER | | | | | | LABORATORY | | + + + + + + | Anion Gap | 6 | 5 - 16 mmol/L | [facility] [...] + + | [facility] | [address] | [place] [address] | | | [facility] | | | | | LABORATORY | | | | + + + + + CBC no Differential (07/10/2013 2:54 AM PDT) + + + + + + | Component | Value | Ref Range | Performed | Pathologist | | | | | At | Signature | + + + + + + | White Blood | 10.1 | 3.8 - 11.0 K/uL | [facility] | | | Cells | | | [facility] | | | | | | [facility] | | | | | | MEDICAL | | | | | | CENTER | | | | | | LABORATORY | | + + + + + + | Red Blood | 4.03 (L) | 4.20 - 5.70 | [facility] | | | Cells | | M/uL | [facility] | | | | | | [facility] | | | | | | MEDICAL | | | | | | CENTER | | | | | | LABORATORY | | + + + + + + | Hemoglobin | 12.4 (L) | 13.2 - 17.0 | [facility] | | | | | g/dL | [facility] | | | | | | [facility] | | | | | | MEDICAL | | | | | | CENTER | | | | | | LABORATORY | | + + + + + + | Hematocrit | 37.2 (L) | 39.0 - 50.0 % | [facility] | | | [facility] | | [facility] | | [facility] | | | | | | [facility] | | | | | | [facility]ENTER | | | | | | LABORATORY | | + + + + + + | MCV | 92.3 | 80.0 - 100.0 fL | [facility] | | | | [facility] | | | | | [facility] | | | | | | [facility] | | | | | | CENTER | | | | | | LABORATORY | | + + + + + + | MCH | 30.7 | 27.0 - 34.0 pg | [facility] | | | | | [facility] | | | | | | [facility] | | | | | | [facility] | | | | | | CENTER | | | | | | LABORATORY | | + + + + + + | MCHC | 33.3 | 32.0 - 35.5 | [facility] | | | | | g/dL | [facility] | | | | | | [facility] | | | | | | MEDICAL | | | | | | CENTER | | | | | | LABORATORY | | + + + + + + | RDW-CV | 15.4 | 11.0 - 15.5 % | [facility] | | | | [facility] | | | | | [facility] | | | | | | [facility] | | | | | | [facility]ENTER | | | | | | LABORATORY | | + + + + + + | Platelet | 174 | 150 - 400 K/uL | [facility] [...] + + | [facility] | [address] | [place] [address] | | | [facility] | | | | | LABORATORY | | | | + + + + + POC Glucose (07/09/2013 8:50 PM PDT) + +---------+ + + + | Component | Value | Ref Range | Performed | Pathologist | | | | | At | Signature | + +---------+ + + + | Glucose, | 114 (H) | 65 - 99 mg/dL | [facility] | | [facility] | | | [facility] | | | | | | [facility] | | | | | | [facility] | | | | | | CENTER | | | | | | LABORATORY | | + +---------+ + + + + + | Specimen | + + | | + + + + + + + | Performing | Address | City/State/Zipcode | Phone Number | | Organization | | | | + + + + + | [facility] | [address] | [place] [address] | | | [facility] | | | | | LABORATORY | | | | + + + + + POC Glucose (07/09/2013 5:21 PM PDT) + +---------+ + + + | Component | Value | Ref Range | Performed | Pathologist | | | | | At | Signature | + +---------+ + + + | Glucose, | 127 (H) | 65 - 99 mg/dL | [facility] | | | [facility] | | | [facility] | | | | | | [facility] | | | | | | [facility] | | | | | | CENTER | | | | | | LABORATORY | | + +---------+ + + + + + | Specimen | + + | | + + + + + + + | Performing | Address | City/State/Zipcode | Phone Number | | Organization | | | | + + + + + | [facility] | [address] | [place] [address] | | | [facility] | | | | | LABORATORY | | | | + + + + + POC Glucose (07/09/2013 2:51 PM PDT) + +---------+ + + + | Component | Value | Ref Range | Performed | Pathologist | | | | | At | Signature | + +---------+ + + + | Glucose, | 135 (H) | 65 - 99 mg/dL | [facility] | | | P[facility] | | | [facility] | | | | | | [facility] | | | | | | MEDICAL | | | | | | CENTER | | | | | | LABORATORY | | + +---------+ + + + + + | Specimen | + + | | + + + + + + + | Performing | Address | City/State/Zipcode | Phone Number | | Organization | | | | + + + + + | [facility] | [address] | [place] [address] | | | [facility] | | | | | LABORATORY | | | | + + + + + POC Glucose (07/09/2013 12:18 PM PDT) + +-------+ + + + | Component | Value | Ref Range | Performed | Pathologist | | | | | At | Signature | + +-------+ + + + | Glucose, | 74 | 65 - 99 mg/dL | [facility] | | | [facility] | | | [facility] | | | [...] + + | [facility] | [address] | [place] [address] | | | [facility] | | | | | LABORATORY | | | | + + + + + POC Glucose (07/09/2013 11:30 AM PDT) + +---------+ + + + | Component | Value | Ref Range | Performed | Pathologist | | | | | At | Signature | + +---------+ + + + | Glucose, | 102 (H) | 65 - 99 mg/dL | [facility] | | [facility] | | | [facility] | | | | | | [facility] | | | | | | [facility]ICAL | | | | | | CENTER | | | | | | LABORATORY | | + +---------+ + + + + + | Specimen | + + | | + + + + + + + | Performing | Address | City/State/Zipcode | Phone Number | | Organization | | | | + + + + + | [facility] | [address] | [place] [address] | | | [facility] | | | | | LABORATORY | | | | + + + + + POC Glucose (07/09/2013 8:37 AM PDT) + +---------+ + + + | Component | Value | Ref Range | Performed | Pathologist | | | | | At | Signature | + +---------+ + + + | Glucose, | 133 (H) | 65 - 99 mg/dL | [facility] | [facility] | | | | | [facility] | | | | | | MEDICAL | | | | | | CENTER | | | | | | LABORATORY | | + +---------+ + + + + + | Specimen | + + | | + + + + + + + | Performing | Address | City/State/Zipcode | Phone Number | | Organization | | | | + + + + + | [facility] | [address] | [place] [address] | | | [facility] | | | | | LABORATORY | | | | + + + + + POC Glucose (07/09/2013 6:24 AM PDT) + +---------+ + + + | Component | Value | Ref Range | Performed | Pathologist | | | | | At | Signature | + +---------+ + + + | Glucose, | 130 (H) | 65 - 99 mg/dL | [facility] | | [facility] | | | [facility] | | | | | | [facility] | | | | | | MEDICAL | | | | | | CENTER | | | | | | LABORATORY | | + +---------+ + + + + + | Specimen | + + | | + + + + + + + | Performing | Address | City/State/Zipcode | Phone Number | | Organization | | | | + + + + + | [facility] | [address] | [place] [address] | | | [facility] | | | | | LABORATORY | | | | + + + + + Basic Metabolic Panel (07/09/2013 4:23 AM PDT) + + + + + + | Component | Value | Ref Range | Performed | Pathologist | | | | | At | Signature | + + + + + + | Na | 142 | 135 - 145 | [facility] | | | | | mmol/L | [facility] | | | | | | [facility] | | | | | | MEDICAL | | | | | | CENTER | | | | | | LABORATORY | | + + + + + + | K | 3.9 | 3.5 - 5.0 | [facility] | | | | | mmol/L | [facility] | | | | | | [facility] | | | | | | MEDICAL | | | | | | CENTER | | | | | | LABORATORY | | + + + + + + | Cl | 112 (H) | 99 - 109 mmol/L | [facility] | | | | | [facility] | | | | | | [facility] | | | | | | [facility] | | | | | | CENTER | | | | | | LABORATORY | | + + + + + + | CO2 | 26 | 21 - 28 mmol/L | [facility] | | | | | | [facility] | | | | | | [facility] | | | | | | [facility] | | | | | | CENTER | | | | | | LABORATORY | | + + + + + + | Glucose | 142 (H)Comment: [place] | 65 - 99 mg/dL | [facility] | | | | Diabetes Association | [...] + + + + | Creatinine | 0.90Comment: IDMS | 0.70 - 1.30 | [facility] | | | | traceable creatinine | mg/dL | [facility] | | | | | | [facility] | | | | | | MEDICAL | | | | | | CENTER | | | | | | LABORATORY | | + + + + + + | Calcium | 9.0 | 8.5 - 10.2 | [facility] | [...] + + | [facility] | [address] | [place] [address] | | | [facility] | | | | | LABORATORY | | | | + + + + + CBC no Differential (07/09/2013 4:23 AM PDT) + + + + + + | Component | Value | Ref Range | Performed | Pathologist | | | | | At | Signature | + + + + + + | White Blood | 9.9 | 3.8 - 11.0 K/uL | [facility] | | | Cells | | | [facility] | | | | | | [facility] | | | | | | MEDICAL | | | | | | CENTER | | | | | | LABORATORY | | + + + + + + | Red Blood | 3.94 (L) | 4.20 - 5.70 | [facility] | | | Cells | | M/uL | [facility] | | | | | | [facility] | | | | | | MEDICAL | | | | | | CENTER | | | | | | LABORATORY | | + + + + + + | Hemoglobin | 12.4 (L) | 13.2 - 17.0 | [facility] | | | | | g/dL | [facility] | | | | | | [facility] | | | | | | MEDICAL | | | | | | CENTER | | | | | | LABORATORY | | + + + + + + | Hematocrit | 35.9 (L) | 39.0 - 50.0 % | [facility] | | | | | | [facility] | | | | | | [facility] | | | | | | [facility] | | | | | | CENTER | | | | | | LABORATORY | | + + + + + + | MCV | 91.2 | 80.0 - 100.0 fL | [facility] | | | | | | [facility] | | | | | | [facility] | | | | | | [facility] | | | | | | CENTER | | | | | | LABORATORY | | + + + + + + | MCH | 31.4 | 27.0 - 34.0 pg | [facility] | | | | | | [facility] | | | | | | [facility] | | | | | | [facility] | | | | | | CENTER | | | | | | LABORATORY | | + + + + + + | MCHC | 34.4 | 32.0 - 35.5 | [facility] | | | | | g/dL | [facility] | | | | | | [facility] | | | | | | MEDICAL | | | | | | CENTER | | | | | | LABORATORY | | + + + + + + | RDW-CV | 15.4 | 11.0 - 15.5 % | [facility] | | | | | | [facility] | | | | | | [facility] | | | | | | MED[facility] | | | | | | CENTER | | | | | | LABORATORY | | + + + + + + | Platelet | 189 | 150 - 400 K/uL | [facility] [...] + + | [facility] | [address] | [place] [address] | | | [facility] | | | | | LABORATORY | | | | + + + + + POC Glucose (07/09/2013 4:02 AM PDT) + +---------+ + + + | Component | Value | Ref Range | Performed | Pathologist | | | | | At | Signature | + +---------+ + + + | Glucose, | 139 (H) | 65 - 99 mg/dL | [facility] | | [facility] | | | [facility] | | | | | [facility] | | | | | | [facility] | | | | | | CENTER | | | | | | LABORATORY | | + +---------+ + + + + + | Specimen | + + | | + + + + + + + | Performing | Address | City/State/Zipcode | Phone Number | | Organization | | | | + + + + + | [facility] | [address] | [place] [address] | | | [facility] | | | | | LABORATORY | | | | + + + + + XR Chest PA or AP (07/09/2013 3:58 AM PDT) + + | Specimen | + + | | + + + + + | Narrative | Performed At | + + + | Exam Performed Location: [facility] [place] AP CHEST | MISCELANIOUS | | RADIOGRAPH CLINICAL INFORMATION: Post open heart surgery. | LAB | | COMPARISON: Yesterday and priors. PROCEDURE: AP chest radiograph | | | FINDINGS: Interval extubation. Central line and mediastinal | | | drains remain in place. Mildly increased left basilar atelectasis. | | | No large effusion or pneumothorax. Stable mild cardiomegaly. | | | IMPRESSION: Interval extubation with mildly increased left basilar | | | atelectasis. S: SQ ([id number]) Signed by: | | | LANEY GARDNER MD | | + + + + + | Procedure Note | + + | Jorje, Rad Conversion - 07/29/2013 4:31 PM PDT Exam Performed Location: [facility] | | at [facility] CHEST RADIOGRAPHCLINICAL INFORMATION:Post open heart | | surgery.COMPARISON:Yesterday and priors.PROCEDURE:AP chest radiographFINDINGS:Interval | | extubation. Central line and mediastinal drains remain inplace. Mildly increased left | | basilar atelectasis. No largeeffusion or pneumothorax. Stable mild | | cardiomegaly.IMPRESSION:Interval extubation with mildly increased left basilar | | atelectasis.S: SQ ([id number]) Signed by: LANEY GARDNER MD | |COMPARISON: | |Yesterday and priors. | | | |PROCEDURE: | |AP chest radiograph | | | |FINDINGS: | |Interval extubation. Central line and mediastinal drains remain in | |place. Mildly increased left basilar atelectasis. No large | |effusion or pneumothorax. Stable mild cardiomegaly. | | | |IMPRESSION: | |Interval extubation with mildly increased left basilar atelectasis. | | | | | | | | | | | | | | | | | | | |S: SQ ([id number]) Signed by: LANEY GARDNER MD | + + + +---------+ + + | Performing | Address | City/State/Zipcode | Phone Number | | Organization | | | | + +---------+ + + | [facility] | | | [phone] | + +---------+ + + | [facility]ISC[facility] LAB | | | [phone] | + +---------+ + + POC Glucose (07/09/2013 3:07 AM PDT) + +---------+ + + + | Component | Value | Ref Range | Performed | Pathologist | | | | | At | Signature | + +---------+ + + + | Glucose, | 132 (H) | 65 - 99 mg/dL | [facility] | | [facility] | | [facility] | | | | | [facility] | | | | | | [facility] | | | | | | CENTER | | | | | | LABORATORY | | + +---------+ + + + + + | Specimen | + + | | + + + + + + + | Performing | Address | City/State/Zipcode | Phone Number | | Organization | | | | + + + + + | [facility] | [address] | [place] [address] | | | [facility] | | | | | LABORATORY | | | | + + + + + POC Glucose (07/09/2013 2:06 AM PDT) + +---------+ + + + | Component | Value | Ref Range | Performed | Pathologist | | | | | At | Signature | + +---------+ + + + | Glucose, | 127 (H) | 65 - 99 mg/dL | [facility] | | [facility] | | | [facility] | | | | | | [facility] | | | | | | [facility] | | | | | | CENTER | | | | | | LABORATORY | | + +---------+ + + + + + | Specimen | + + | | + + + + + + + | Performing | Address | City/State/Zipcode | Phone Number | | Organization | | | | + + + + + | [facility] | [address] | [place] [address] | | | [facility] | | | | | LABORATORY | | | | + + + + + POC Glucose (07/09/2013 1:09 AM PDT) + +---------+ + + + | Component | Value | Ref Range | Performed | Pathologist | | | | | At | Signature | + +---------+ + + + | Glucose, | 119 (H) | 65 - 99 mg/dL | [facility] | | | P[facility] | | | [facility] | | | | | | [facility] | | | | | | [facility]ICAL | | | | | | CENTER | | | | | | LABORATORY | | + +---------+ + + + + + | Specimen | + + | | + + + + + + + | Performing | Address | City/State/Zipcode | Phone Number | | Organization | | | | + + + + + | [facility] | [address] | [place] [address] | | | [facility] | | | | | LABORATORY | | | | + + + + + POC Glucose (07/09/2013 12:18 AM PDT) + +---------+ + + + | Component | Value | Ref Range | Performed | Pathologist | | | | | At | Signature | + +---------+ + + + | Glucose, | 121 (H) | 65 - 99 mg/dL | [facility] | | [facility] | | | [facility] | | | | | | [facility] | | | | | | [facility] | | | | | | CENTER | | | | | | LABORATORY | | + +---------+ + + + + + | Specimen | + + | | + + + + + + + | Performing | Address | City/State/Zipcode | Phone Number | | Organization | | | | + + + + + | [facility] | [address] | [place] [address] | | | [facility] | | | | | LABORATORY | | | | + + + + + Potassium (07/08/2013 10:39 PM PDT) + +-------+ + + + | Component | Value | Ref Range | Performed | Pathologist | | | | | At | Signature | + +-------+ + + + | K | 4.0 | 3.5 - 5.0 | [facility] | [...] + | [facility] | [address] | [place] [address] | | | [facility] | | | | | LABORATORY | | | | + + + + + CBC no Differential (07/08/2013 10:39 PM PDT) + + + + + + | Component | Value | Ref Range | Performed | Pathologist | | | | | At | Signature | + + + + + + | White Blood | 8.2 | 3.8 - 11.0 K/uL | [facility] | | | Cells | | | [facility] | | | | | | [facility] | | | | | | MEDICAL | | | | | | CENTER | | | | | | LABORATORY | | + + + + + + | Red Blood | 3.95 (L) | 4.20 - 5.70 | [facility] | | | Cells | | M/uL | [facility] | | | | | | [facility] | | | | | | MEDICAL | | | | | | CENTER | | | | | | LABORATORY | | + + + + + + | Hemoglobin | 12.1 (L) | 13.2 - 17.0 | [facility] | | | | | g/dL | [facility] | | | | | | [facility] | | | | | | MED[facility] | | | | | | CENTER | | | | | | LABORATORY | | + + + + + + | Hematocrit | 36.4 (L) | 39.0 - 50.0 % | [facility] | | | | | | [facility] | | | | | | [facility] | | | | | | [facility] | | | | | | CENTER | | | | | | LABORATORY | | + + + + + + | MCV | 92.1 | 80.0 - 100.0 fL | [facility] | | | | | | [facility] | | | | | | [facility] | | | | | | [facility] | | | | | | CENTER | | | | | | LABORATORY | | + + + + + + | MCH | 30.5 | 27.0 - 34.0 pg | [facility] | | | | | | [facility] | | | | | | [facility] | | | | | | [facility] | | | | | | CENTER | | | | | | LABORATORY | | + + + + + + | MCHC | 33.2 | 32.0 - 35.5 | [facility] | | | | | g/dL | [facility] | | | | | | [facility] | | | | | | MEDICAL | | | | | | CENTER | | | | | | LABORATORY | | + + + + + + | RDW-CV | 15.3 | 11.0 - 15.5 % | [facility] | | | | | | [facility] | | | | | | [facility] | | | | | | [facility] | | | | | | [facility]ENTER | | | | | | LABORATORY | | + + + + + + | Platelet | 185 | 150 - 400 K/uL | [facility] [...] + + | [facility] | [address] | [place] [address] | | | [facility] | | | | | LABORATORY | | | | + + + + + POC Glucose (07/08/2013 10:37 PM PDT) + +---------+ + + + | Component | Value | Ref Range | Performed | Pathologist | | | | | At | Signature | + +---------+ + + + | Glucose, | 122 (H) | 65 - 99 mg/dL | [facility] | | | POC | | | [facility] | | | | | | [facility] | | | | | | [facility] | | | | | | CENTER | | | | | | LABORATORY | | + +---------+ + + + + + | Specimen | + + | | + + + + + + + | Performing | Address | City/State/Zipcode | Phone Number | | Organization | | | | + + + + + | [facility] | [address] | [place] [address] | | | [facility] | | | | | LABORATORY | | | | + + + + + POC Glucose (07/08/2013 10:00 PM PDT) + +---------+ + + + | Component | Value | Ref Range | Performed | Pathologist | | | | | At | Signature | + +---------+ + + + | Glucose, | 143 (H) | 65 - 99 mg/dL | [facility] | | | P[facility] | | | [facility] | | | | | | [facility] | | | | | | [facility] | | | | | | CENTER | | | | | | LABORATORY | | + +---------+ + + + + + | Specimen | + + | | + + + + + + + | Performing | Address | City/State/Zipcode | Phone Number | | Organization | | | | + + + + + | [facility] | [address] | [place] [address] | | | [facility] | | | | | LABORATORY | | | | + + + + + POC Glucose (07/08/2013 8:58 PM PDT) + +---------+ + + + | Component | Value | Ref Range | Performed | Pathologist | | | | | At | Signature | + +---------+ + + + | Glucose, | 161 (H) | 65 - 99 mg/dL | [facility] | | | POC | | | [facility] | | | | | | [facility] | | | | | | [facility] | | | | | | CENTER | | | | | | LABORATORY | | + +---------+ + + + + + | Specimen | + + | | + + + + + + + | Performing | Address | City/State/Zipcode | Phone Number | | Organization | | | | + + + + + | [facility] | [address] | [place] [address] | | | [facility] | | | | | LABORATORY | | | | + + + + + Glucose, Respiratory (07/08/2013 7:27 PM PDT) + +---------+ + + + | Component | Value | Ref Range | Performed | Pathologist | | | | | At | Signature | + +---------+ + + + | Glucose | 204 (H) | 65 - 99 mg/dL | [facility] | | | | | | [facility] | | | | | | [facility] | | | | | | MEDICAL | | | | | | CENTER | | | | | | LABORATORY | | + +---------+ + + + + + | Specimen | + + | | + + + + + + + | Performing | Address | City/State/Zipcode | Phone Number | | Organization | | | | + + + + + | [facility] | [address] | [place] [address] | | | [facility] | | | | | LABORATORY | | | | + + + + + Blood Gas, Arterial (07/08/2013 7:27 PM PDT) + + + + + + | Component | Value | Ref Range | Performed | Pathologist | | | | | At | Signature | + + + + + + | pH, | 7.34 (L) | 7.37 - 7.47 | [facility] | | | Arterial | | | [facility] | | | | | | [facility] | | | | | | MEDICAL | | | | | | CENTER | | | | | | LABORATORY | | + + + + + + | pCO2, | 45 (H) | 32 - 43 mm Hg | [facility] | | | Arterial | | | [facility] | | | | | | HE[facility] | | | | | | MEDICAL | | | | | | CENTER | | | | | | LABORATORY | | + + + + + + | pO2, | 95 (H) | 65 - 80 mm Hg | [facility] | | | Arterial | | | [facility] | | | | | | [facility] | | | | | | MEDICAL | | | | | | CENTER | | | | | | LABORATORY | | + + + + + + | Oxygen | 17.0 | 15 - 23 Vol % | [facility] | | | Content, | | | [facility] | | | Arterial | | | HEART | | | | | | MEDICAL | | | | | | CENTER | | | | | | LABORATORY | | + + + + + + | O2 | 95.5 | 92.0 - 99.9 % | [facility] | | | Saturation, | | | [facility] | | | Arterial | | | HEART | | | | | | MEDICAL | | | | | | CENTER | | | | | | LABORATORY | | + + + + + + | HCO3, | 23.6 | 23.0 - 28.0 | [facility] | | | Arterial | | mmol/L | [facility] | | | | | | HE[facility] | | | | | | [facility] | | | | | | CENTER | | | | | | LABORATORY | | + + + + + + | Base | 1.7 | 0.0 - 2.5 | [facility] | | | deficit | | mmol/L | [facility] | | | | | | [facility] | | | | | | [facility] | | | | | | CENTER | | | | | | LABORATORY | | + + + + + + | Hgb, Blood | 12.5 (L) | 13.2 - 17.0 | [facility] | | | Gas | | g/dL | [facility] | | | | | | [facility] | | | | | | [facility] | | | | | | CENTER | | | | | | LABORATORY | | + + + + + + | Carboxyhemo | 1.4 | 1.0 - 3.0 % | [facility] | | | globin | | | [facility] | | | | | | [facility] | | | | | | [facility] | | | | | | CENTER | | | | | | LABORATORY | | + + + + + + | Methemoglob | 0.6 | 0.4 - 1.5 % | [facility] | | | in, Venous | | | [facility] | | | | | | [facility] | | | | | | MEDICAL | | | | | | CENTER | | | | | | LABORATORY | | + + + + + + | L/min of O2 | FIO2 40% | % | [facility] | | | | | | [facility] | | [facility] | | [facility] | | | | | | [facility] | | | | | | [facility] | | | | | | LABORATORY | | + + + + + + | Additional | PSV P 5, PS 8 | | [facility] | | | Information | | | [facility] | | | [...] + + | [facility] | [address] | [place] [address] | | | [facility] | | | | | LABORATORY | | | | + + + + + POC Glucose (07/08/2013 6:28 PM PDT) + +---------+ + + + | Component | Value | Ref Range | Performed | Pathologist | | | | | At | Signature | + +---------+ + + + | Glucose, | 174 (H) | 65 - 99 mg/dL | [facility] | | | POC | | | [facility] | | | | | | [facility] | | | | | | [facility] | | | | | | [facility]ENTER | | | | | | LABORATORY | | + +---------+ + + + + + | Specimen | + + | | + + + + + + + | Performing | Address | City/State/Zipcode | Phone Number | | Organization | | | | + + + + + | [facility] | [address] | [place] [address] | | | [facility] | | | | | LABORATORY | | | | + + + + + CBC no Differential (07/08/2013 5:31 PM PDT) + + + + + + | Component | Value | Ref Range | Performed | Pathologist | | | | | At | Signature | + + + + + + | White Blood | 8.9 | 3.8 - 11.0 K/uL | [facility] | | | Cells | | | [facility] | | | | | | [facility] | | | | | | [facility] | | | | | | CENTER | | | | | | LABORATORY | | + + + + + + | Red Blood | 3.98 (L) | 4.20 - 5.70 | [facility] | | | Cells | | M/uL | [facility] | | | | | | [facility] | | | | | | [facility] | | | | | | CENTER | | | | | | LABORATORY | | + + + + + + | Hemoglobin | 12.2 (L) | 13.2 - 17.0 | [facility] | | | | | g/dL | [facility] | | | | | | [facility] | | | | | | [facility] | | | | | | CENTER | | | | | | LABORATORY | | + + + + + + | Hematocrit | 36.6 (L) | 39.0 - 50.0 % | [facility] | | | | | | [facility] | | [facility] | [facility] | | | | | | [facility] | | | | | | CENTER | | | | | | LABORATORY | | + + + + + + | MCV | 91.9 | 80.0 - 100.0 fL | [facility] | | | | | | [facility] | | | | | | [facility] | | | | | | MEDICAL | | | | | | CENTER | | | | | | LABORATORY | | + + + + + + | MCH | 30.6 | 27.0 - 34.0 pg | [facility] | [facility] | [facility] | | | | | | [facility] | | | | | | [facility]ENTER | | | | | | LABORATORY | | + + + + + + | MCHC | 33.3 | 32.0 - 35.5 | [facility] | | | | | g/dL | [facility] | | | | | | HE[facility] | | | | | | MEDICAL | | | | | | CENTER | | | | | | LABORATORY | | + + + + + + | RDW-CV | 15.1 | 11.0 - 15.5 % | [facility] | | [facility] | [facility] | | [facility] | | | | | | [facility] | | | | | | [facility]ENTER | | | | | | LABORATORY | | + + + + + + | Platelet | 182 | 150 - 400 K/uL | [facility] [...] + | [facility] | [address] | [place] [address] | | | [facility] | | | | | LABORATORY | | | | + + + + + Glucose, Respiratory (07/08/2013 5:28 PM PDT) + +---------+ + + + | Component | Value | Ref Range | Performed | Pathologist | | | | | At | Signature | + +---------+ + + + | Glucose | 170 (H) | 65 - 99 mg/dL | [facility] | | [facility] | [facility] | | | | | | [facility] | | | | | | CENTER | | | | | | LABORATORY | | + +---------+ + + + + + | Specimen | + + | | + + + + + + + | Performing | Address | City/State/Zipcode | Phone Number | | Organization | | | | + + + + + | [facility] | [address] | [place] [address] | | | [facility] | | | | | LABORATORY | | | | + + + + + Potassium, WB (07/08/2013 5:28 PM PDT) + +---------+ + + + | Component | Value | Ref Range | Performed | Pathologist | | | | | At | Signature | + +---------+ + + + | K | 5.1 (H) | 3.5 - 5.0 | [facility] | | | | | mmol/L | [facility] | | | | | | HE[facility] | | | | | | MEDICAL | | | | | | CENTER | | | | | | LABORATORY | | + +---------+ + + + + + | Specimen | + + | | + + + + + + + | Performing | Address | City/State/Zipcode | Phone Number | | Organization | | | | + + + + + | [facility] | [address] | [place] [address] | | | [facility] | | | | | LABORATORY | | | | + + + + + Blood Gas, Arterial (07/08/2013 5:28 PM PDT) + + + + + + | Component | Value | Ref Range | Performed | Pathologist | | | | | At | Signature | + + + + + + | pH, | 7.35 (L) | 7.37 - 7.47 | [facility] | | | Arterial | | | [facility] | | | | | | HEART | | | | | | MEDICAL | | | | | | CENTER | | | | | | LABORATORY | | + + + + + + | pCO2, | 43 | 32 - 43 mm Hg | [facility] | | | Arterial | | | [facility] | | | | | | HEART | | | | | | MEDICAL | | | | | | CENTER | | | | | | LABORATORY | | + + + + + + | pO2, | 129 (H) | 65 - 80 mm Hg | [facility] | | | Arterial | | | [facility] | | | | | | HEART | | | | | | MEDICAL | | | | | | CENTER | | | | | | LABORATORY | | + + + + + + | Oxygen | 17.1 | 15 - 23 Vol % | [facility] | | | Content, | | | [facility] | | | Arterial | | | HEART | | | | | | MEDICAL | | | | | | CENTER | | | | | | LABORATORY | | + + + + + + | O2 | 97.4 | 92.0 - 99.9 % | [facility] | | | Saturation, | | | [facility] | | | Arterial | | | HEART | | | | | | MEDICAL | | | | | | CENTER | | | | | | LABORATORY | | + + + + + + | HCO3, | 23.5 | 23.0 - 28.0 | [facility] | | | Arterial | | mmol/L | [facility] | | | | | | HEART | | | | | | MEDICAL | | | | | | CENTER | | | | | | LABORATORY | | + + + + + + | Base | 1.6 | 0.0 - 2.5 | [facility] | | | deficit | | mmol/L | [facility] | | | | | | HEART | | | | | | MEDICAL | | | | | | CENTER | | | | | | LABORATORY | | + + + + + + | Hgb, Blood | 12.4 (L) | 13.2 - 17.0 | [facility] | | | Gas | | g/dL | [facility] | | | | | | HEART | | | | | | MEDICAL | | | | | | CENTER | | | | | | LABORATORY | | + + + + + + | Carboxyhemo | 0.7 (L) | 1.0 - 3.0 % | [facility] | | | globin | | | [facility] | | | | | | HEART | | | | | | MEDICAL | | | | | | CENTER | | | | | | LABORATORY | | + + + + + + | Methemoglob | 0.4 | 0.4 - 1.5 % | [facility] | | | in, Venous | | | [facility] | | | | | | HEART | | | | | | MEDICAL | | | | | | CENTER | | | | | | LABORATORY | | + + + + + + | L/min of O2 | 60%,OXIM97% | % | [facility] | | | | | | [facility] | | | | | | [facility] | | | | | | MEDICAL | | | | | | CENTER | | | | | | LABORATORY | | + + + + + + | Additional | [id number],[id number],PS8,ETCO | | [facility] | | | Information | 2@36 | | [facility] | | | | [...] | + + + + + | [facility] | [address] | [place] [address] | | | [facility] | | | | | LABORATORY | | | | + + + + + MRSA NAAT (07/08/2013 5:20 PM PDT) + + + + + + | Component | Value | Ref Range | Performed | Pathologist | | | | | At | Signature | + + + + + + | Specimen | Nasal | | [facility] | | | Source | | | [facility] | | | | | | [facility]ART | | | | | | MEDICAL | | | | | | CENTER | | | | | | LABORATORY | | + + + + + + | RESULT | Negative for MRSA by PCR | | [facility] | | | | | | [facility] | | | | | | [facility] | | | | | | MEDICAL | | | | | | CENTER | | | | | | LABORATORY | | + + + + + + | Status | 07/08/2013 Final | | [facility] | | | | | [facility] | | | | | | [facility] | | | | | | MEDICAL | | | | | | CENTER | | | | | | LABORATORY | | + + + + + + + + | Specimen | + + | Other | + + + + + + + | Performing | Address | City/State/Zipcode | Phone Number | | Organization | | | | + + + + + | [facility] | [address] | [place] [address] | | | [facility] | | | | | LABORATORY | | | | + + + + + Blood Gas , Arterial, Surgery (07/08/2013 4:54 PM PDT) + + + + + + | Component | Value | Ref Range | Performed | Pathologist | | | | | At | Signature | + + + + + + | pH, | 7.35 | | [facility] | | | Arterial | Comment: | | [facility] | | | | Results delivered to: | | HEART | | | | Dr. [place], [place] [address] | | MEDICAL | | | | | | CENTER | | | | | | LABORATORY | | + + + + + + | pCO2, | 41 | mm Hg | [facility] | | | Arterial | | | [facility] | | | | | | HEART | | | | | | MEDICAL | | | | | | CENTER | | | | | | LABORATORY | | + + + + + + | pO2, | 397 | mm Hg | [facility] | | | Arterial | | | [facility] | | | | | | HEART | | | | | | MEDICAL | | | | | | CENTER | | | | | | LABORATORY | | + + + + + + | Base | 2.7 | mmol/L | [facility] | | | deficit | | | [facility] | | | | | | HEART | | | | | | MEDICAL | | | | | | CENTER | | | | | | LABORATORY | | + + + + + + | Base | N/A | mmol/L | [facility] | | | Excess, | | | [facility] | | | Arterial | | | HEART | | | | | | MEDICAL | | | | | | CENTER | | | | | | LABORATORY | | + + + + + + | HCO3, | 22.0 | mmol/L | [facility] | | | Arterial | | | [facility] | | | | | | HEART | | | | | | MEDICAL | | | | | | CENTER | | | | | | LABORATORY | | + + + + + + | Oxygen | 17.7 | Vol % | [facility] | | | Content, | | | [facility] | | | Arterial | | | HEART | | | | | | MEDICAL | | | | | | CENTER | | | | | | LABORATORY | | + + + + + + | Hgb, Blood | 12.1 | g/dL | [facility] | | | Gas | | | [facility] | | | | | | HEART | | | | | | MEDICAL | | | | | | CENTER | | | | | | LABORATORY | | + + + + + + | HGB O2 SAT | 98.2 | % | [facility] | | | | | | [facility] | | | | | | HEART | | | | | | MEDICAL | | | | | | CENTER | | | | | | LABORATORY | | + + + + + + | Carboxyhemo | 1.0 | % | [facility] | | | globin | | | [facility] | | | | | | HEART | | | | | | MEDICAL | | | | | | CENTER | | | | | | LABORATORY | | + + + + + + | Methemoglob | 0.6 | % | [facility] | | | in, Venous | | | [facility] | | | | | | HEART | | | | | | MEDICAL | | | | | | CENTER | | | | | | LABORATORY | | + + + + + + | Calcium, | 4.80 | mg/dL | [facility] | | | Ionized | | | [facility] | | | | | | HEART | | | | | | MEDICAL | | | | | | CENTER | | | | | | LABORATORY | | + + + + + + | Calcium, pH | 4.68 | mg/dL | [facility] | | | Normalized | | | [facility] | | | | | | HEART | | | | | | MEDICAL | | | | | | CENTER | | | | | | LABORATORY | | + + + + + + | Glucose, | 165 | mg/dL | [facility] | | | POC | | | [facility] | | | | | | HEART | | | | | | MEDICAL | | | | | | CENTER | | | | | | LABORATORY | | + + + + + + | K | 5.5 | mmol/L | [facility] | | | | | | [facility] | | | | | | HEART | | | | | | MEDICAL | | | | | | CENTER | | | | | | LABORATORY | | + + + + + + | Na | 143 | mmol/L | [facility] | | | | [...] + + + + + | [facility] | [address] | [place] [address] | | | [facility] | | | | | LABORATORY | | | | + + + + + XR Chest PA or AP (07/08/2013 4:50 PM PDT) + + | Specimen | + + | | + + + + + | Narrative | Performed At | + + + | Exam Performed Location: [facility] | MISCELANIOUS | | X-RAY PORTABLE SINGLE VIEW CLINICAL INFORMATION: Aortic valve | LAB | | replace. COMPARISON: Chest x-ray 07/07/2013. FINDINGS: TUBES | | | / LEADS: In the endotracheal tube tip 5.2 cm above rachel good | | | position. Right jugular venous sheath into this proximal superior | | | vena cava. Coaxial catheter tip distal superior vena cava. NG tube | | | in the left upper quadrant. Pericardiac drains in place. PLEURAL | | | SPACE: No pneumothorax. No effusions. LUNGS: No opacity. | | | HEART: Normal size. Sternotomy and prosthetic aortic valve noted. | | | IMPRESSION: Postop open heart surgery aortic valve replacement. | | | Tubes in expected location. No lung complications or abnormality. | | | S: SQ ([id number]) Signed by: FELI SIMMONS MD | | + + + + + | Procedure Note | + + | Jorje, Rad Conversion - 07/29/2013 4:29 PM PDT Exam Performed Location: [facility] | | at [facility] X-RAY PORTABLE SINGLE VIEWCLINICAL INFORMATION:Aortic valve | | replace.COMPARISON:Chest x-ray 07/07/2013.FINDINGS:TUBES / LEADS:In the endotracheal | | tube tip 5.2 cm above rachel good position.Right jugular venous sheath into this | | proximal superior vena cava.Coaxial catheter tip distal superior vena cava.NG tube in | | the left upper quadrant.Pericardiac drains in place.PLEURAL SPACE: No pneumothorax. | | No effusions.LUNGS: No opacity.HEART: Normal size. Sternotomy and prosthetic aortic | | valve noted.IMPRESSION:Postop open heart surgery aortic valve replacement. Tubes | | inexpected location.No lung complications or abnormality.S: SQ ([id number]) Signed by: | | FELI SIMMONS MD | |FINDINGS: | |TUBES / LEADS: | |In the endotracheal tube tip 5.2 cm above rachel good position. | |Right jugular venous sheath into this proximal superior vena cava. | |Coaxial catheter tip distal superior vena cava. | |NG tube in the left upper quadrant. | |Pericardiac drains in place. | | | |PLEURAL SPACE: No pneumothorax. No effusions. | |LUNGS: No opacity. | |HEART: Normal size. Sternotomy and prosthetic aortic valve noted. | | | | | |IMPRESSION: | |Postop open heart surgery aortic valve replacement. Tubes in | |expected location. | |No lung complications or abnormality. | | | | | | | | | | | |S: SQ ([id number]) Signed by: FELI SIMMONS MD | + + + +---------+ + + | Performing | Address | City/State/Zipcode | Phone Number | | Organization | | | | + +---------+ + + | [facility] | | | [phone] | + +---------+ + + | [facility] | | | [phone] | + +---------+ + + Blood Gas , Arterial, Surgery (07/08/2013 4:05 PM PDT) + + + + + + | Component | Value | Ref Range | Performed | Pathologist | | | | | At | Signature | + + + + + + | pH, | 7.39 | | [facility] | | | Arterial | Comment: | | [facility] | | | | Results delivered to: | | HEART | | | | Dr. [place], [place] [address] | | MEDICAL | | | | | | CENTER | | | | | | LABORATORY | | + + + + + + | pCO2, | 40 | mm Hg | [facility] | | | Arterial | | | [facility] | | | | | | HEART | | | | | | MEDICAL | | | | | | CENTER | | | | | | LABORATORY | | + + + + + + | pO2, | 369 | mm Hg | [facility] | | | Arterial | | | [facility] | | | | | | HEART | | | | | | MEDICAL | | | | | | CENTER | | | | | | LABORATORY | | + + + + + + | Base | 0.2 | mmol/L | [facility] | | | deficit | | | [facility] | | | | | | HEART | | | | | | MEDICAL | | | | | | CENTER | | | | | | LABORATORY | | + + + + + + | Base | N/A | mmol/L | [facility] | | | Excess, | | | [facility]CR[facility] | | | Arterial | | | HEART | | | | | | MEDICAL | | | | | | CENTER | | | | | | LABORATORY | | + + + + + + | HCO3, | 24.0 | mmol/L | [facility] | | | Arterial | | | [facility]CR[facility] | | | | | | HEART | | | | | | MEDICAL | | | | | | CENTER | | | | | | LABORATORY | | + + + + + + | Oxygen | 15.7 | Vol % | [facility] | | | Content, | | | [facility] | | | Arterial | | | HEART | | | | | | MEDICAL | | | | | | CENTER | | | | | | LABORATORY | | + + + + + + | Hgb, Blood | 10.7 | g/dL | [facility] | | | Gas | | | [facility]CR[facility] | | | | | | HEART | | | | | | MEDICAL | | | | | | CENTER | | | | | | LABORATORY | | + + + + + + | HGB O2 SAT | 98.1 | % | [facility] | | | | | | [facility] | | | | | | HEART | | | | | | MEDICAL | | | | | | CENTER | | | | | | LABORATORY | | + + + + + + | Carboxyhemo | 1.1 | % | [facility] | | | globin | | | [facility]CR[facility] | | | | | | HEART | | | | | | MEDICAL | | | | | | CENTER | | | | | | LABORATORY | | + + + + + + | Methemoglob | 0.6 | % | [facility] | | | in, Venous | | | [facility]CR[facility] | | | | | | HEART | | | | | | MEDICAL | | | | | | CENTER | | | | | | LABORATORY | | + + + + + + | Calcium, | 4.89 | mg/dL | [facility] | | | Ionized | | | [facility] | | | | | | HEART | | | | | | MEDICAL | | | | | | CENTER | | | | | | LABORATORY | | + + + + + + | Calcium, pH | 4.87 | mg/dL | [facility] | | | Normalized | | | [facility] | | | | | | HEART | | | | | | MEDICAL | | | | | | CENTER | | | | | | LABORATORY | | + + + + + + | Glucose, | 146 | mg/dL | [facility] | | | POC | | | [facility]CR[facility] | | | | | | HEART | | | | | | MEDICAL | | | | | | CENTER | | | | | | LABORATORY | | + + + + + + | K | 6.6 | mmol/L | [facility] | | | | | | [facility] | | | | | | HEART | | | | | | MEDICAL | | | | | | CENTER | | | | | | LABORATORY | | + + + + + + | Na | 140 | mmol/L | [facility] | | | | [...] + | [facility] | [address] | [place] [address] | | | [facility] | | | | | LABORATORY | | | | + + + + + Lactic Acid, Arterial, Surgery (07/08/2013 3:18 PM PDT) + +-------+ + + + | Component | Value | Ref Range | Performed | Pathologist | | | | | At | Signature | + +-------+ + + + | Lactate, | 1.1 | mmol/L | [facility] | | | Arterial | | | [facility] | | | [...] | [facility] | [address] | [place] [address] | | | [facility] | | | | | LABORATORY | | | | + + + + + Calcium, Ionized, Surgery (07/08/2013 3:18 PM PDT) + +-------+ + + + | Component | Value | Ref Range | Performed | Pathologist | | | | | At | Signature | + +-------+ + + + | Calcium, | 4.15 | mg/dL | [facility] | | | Ionized | | | [facility] | | | | | | HEART | | | | | | MEDICAL | | | | | | CENTER | | | | | | LABORATORY | | + +-------+ + + + | Calcium, pH | 4.04 | mg/dL | [facility] | | | Normalized | | | SACR[facility] | | | [...] + | [facility] | [address] | [place] [address] | | | [facility] | | | | | LABORATORY | | | | + + + + + Blood Gas Profile AGB, VBG, Potassium and Glucose, Surgery (07/08/2013 3:18 PM PDT) + + + + + + | Component | Value | Ref Range | Performed | Pathologist | | | | | At | Signature | + + + + + + | pH, | 7.35 | | [facility] | | | Arterial | Comment: | | [facility] | | | | Results delivered to: | | HEART | | | | [place], [place] [address] | | MEDICAL | | | | | | CENTER | | | | | | LABORATORY | | + + + + + + | pCO2, | 49 | mm Hg | [facility] | | | Arterial | | | [facility]CR[facility] | | | | | | HEART | | | | | | MEDICAL | | | | | | CENTER | | | | | | LABORATORY | | + + + + + + | pO2, | 215 | mm Hg | [facility] | | | Arterial | | | [facility]CR[facility] | | | | | | HEART | | | | | | MEDICAL | | | | | | CENTER | | | | | | LABORATORY | | + + + + + + | Base | N/A | mmol/L | [facility] | | | deficit | | | [facility] | | | | | | HEART | | | | | | MEDICAL | | | | | | CENTER | | | | | | LABORATORY | | + + + + + + | Base | 1.3 | mmol/L | [facility] | | | Excess, | | | [facility]CR[facility] | | | Arterial | | | HEART | | | | | | MEDICAL | | | | | | CENTER | | | | | | LABORATORY | | + + + + + + | HCO3, | 26.3 | mmol/L | [facility] | | | Arterial | | | [facility]CR[facility] | | | | | | HEART | | | | | | MEDICAL | | | | | | CENTER | | | | | | LABORATORY | | + + + + + + | Oxygen | 15.2 | Vol % | [facility] | | | Content, | | | [facility]CR[facility] | | | Arterial | | | HEART | | | | | | MEDICAL | | | | | | CENTER | | | | | | LABORATORY | | + + + + + + | Hgb, Blood | 10.7 | g/dL | [facility] | | | Gas | | | SACRED | | | | | | HEART | | | | | | MEDICAL | | | | | | CENTER | | | | | | LABORATORY | | + + + + + + | HGB O2 SAT | 97.6 | % | [facility] | | | | | | [facility]CR[facility] | | | | | | HEART | | | | | | MEDICAL | | | | | | CENTER | | | | | | LABORATORY | | + + + + + + | Carboxyhemo | 1.2 | % | [facility] | | | globin | | | SACRED | | | | | | HEART | | | | | | MEDICAL | | | | | | CENTER | | | | | | LABORATORY | | + + + + + + | Methemoglob | 0.7 | % | [facility] | | | in, Venous | | | SACR[facility] | | | | | | HEART | | | | | | MEDICAL | | | | | | CENTER | | | | | | LABORATORY | | + + + + + + | pH, Venous | 7.34 | | [facility] | | | | | | [facility]CR[facility] | | | | | | HEART | | | | | | MEDICAL | | | | | | CENTER | | | | | | LABORATORY | | + + + + + + | pCO2, | 54 | mm Hg | [facility] | | | Venous | | | SACR[facility] | | | | | | HEART | | | | | | MEDICAL | | | | | | CENTER | | | | | | LABORATORY | | + + + + + + | pO2, Venous | 46 | mm Hg | [facility] | | | | | | [facility]CR[facility] | | | | | | HEART | | | | | | MEDICAL | | | | | | CENTER | | | | | | LABORATORY | | + + + + + + | O2HB KIP | 76.6 | % | [facility] | | | | | | [facility]CR[facility] | | | | | | HEART | | | | | | MEDICAL | | | | | | CENTER | | | | | | LABORATORY | | + + + + + + | K | 7.1 | mmol/L | [facility] | | | | | | [facility]CR[facility] | | | | | | HEART | | | | | | MEDICAL | | | | | | CENTER | | | | | | LABORATORY | | + + + + + + | Glucose, | 143 | mg/dL | [facility] | | | POC | | | SACRED | | | [...] + + | [facility] | [address] | [place] [address] | | | [facility] | | | | | LABORATORY | | | | + + + + + Lactate (Lactic Acid), Venous (07/08/2013 2:49 PM PDT) + +-------+ + + + | Component | Value | Ref Range | Performed | Pathologist | | | | | At | Signature | + +-------+ + + + | Lactate, | 0.9 | mmol/L | [facility] | | | Venous | | | SACRED | | | [...] + + | [facility] | [address] | [place] [address] | | | [facility] | | | | | LABORATORY | | | | + + + + + Chemistry Profile, A and V, Surgery (07/08/2013 2:49 PM PDT) + + + + + + | Component | Value | Ref Range | Performed | Pathologist | | | | | At | Signature | + + + + + + | pH, | 7.31 | | [facility] | | | Arterial | Comment: | | [facility] | | | | Results delivered to: | | HEART | | | | [facility] | | MEDICAL | | | | | | CENTER | | | | | | LABORATORY | | + + + + + + | pCO2, | 51 | mm Hg | [facility] | | | Arterial | | | SACR[facility] | | | | | | HEART | | | | | | MEDICAL | | | | | | CENTER | | | | | | LABORATORY | | + + + + + + | pO2, | 291 | mm Hg | [facility] | | | Arterial | | | SACR[facility] | | | | | | HEART | | | | | | MEDICAL | | | | | | CENTER | | | | | | LABORATORY | | + + + + + + | Base | 0.6 | mmol/L | [facility] | | | deficit | | | [facility]CR[facility] | | | | | | HEART | | | | | | MEDICAL | | | | | | CENTER | | | | | | LABORATORY | | + + + + + + | Base | N/A | mmol/L | [facility] | | | Excess, | | | [facility]CR[facility] | | | Arterial | | | HEART | | | | | | MEDICAL | | | | | | CENTER | | | | | | LABORATORY | | + + + + + + | HCO3, | 24.8 | mmol/L | [facility] | | | Arterial | | | SACR[facility] | | | | | | HEART | | | | | | MEDICAL | | | | | | CENTER | | | | | | LABORATORY | | + + + + + + | Oxygen | 16.3 | Vol % | [facility] | | | Content, | | | SACR[facility] | | | Arterial | | | HEART | | | | | | MEDICAL | | | | | | CENTER | | | | | | LABORATORY | | + + + + + + | Hgb, Blood | 11.3 | g/dL | [facility] | | | Gas | | | SACRED | | | | | | HEART | | | | | | MEDICAL | | | | | | CENTER | | | | | | LABORATORY | | + + + + + + | HGB O2 SAT | 98.0 | % | [facility] | | | | | | [facility]CR[facility] | | | | | | HEART | | | | | | MEDICAL | | | | | | CENTER | | | | | | LABORATORY | | + + + + + + | Carboxyhemo | 0.9 | % | [facility] | | | globin | | | SACRED | | | | | | HEART | | | | | | MEDICAL | | | | | | CENTER | | | | | | LABORATORY | | + + + + + + | Methemoglob | 0.7 | % | [facility] | | | in, Venous | | | SACRED | | | | | | HEART | | | | | | MEDICAL | | | | | | CENTER | | | | | | LABORATORY | | + + + + + + | pH, Venous | 7.30 | | [facility] | | | | | | [facility] | | | | | | HEART | | | | | | MEDICAL | | | | | | CENTER | | | | | | LABORATORY | | + + + + + + | pCO2, | 55 | mm Hg | [facility] | | | Venous | | | [facility]CR[facility] | | | | | | HEART | | | | | | MEDICAL | | | | | | CENTER | | | | | | LABORATORY | | + + + + + + | pO2, Venous | 60 | mm Hg | [facility] | | | | | | [facility]CR[facility] | | | | | | HEART | | | | | | MEDICAL | | | | | | CENTER | | | | | | LABORATORY | | + + + + + + | O2HB KIP | 86.5 | % | [facility] | | | | | | [facility]CR[facility] | | | | | | HEART | | | | | | MEDICAL | | | | | | CENTER | | | | | | LABORATORY | | + + + + + + | Glucose, | 140 | mg/dL | [facility] | | | POC | | | [facility]CR[facility] | | | | | | HEART | | | | | | MEDICAL | | | | | | CENTER | | | | | | LABORATORY | | + + + + + + | Calcium, | 4.31 | mg/dL | [facility] | | | Ionized | | | [facility]CR[facility] | | | | | | [facility] | | | | | | MEDICAL | | | | | | CENTER | | | | | | LABORATORY | | + + + + + + | Calcium, pH | 4.08 | mg/dL | [facility] | | | Normalized | | | [facility] | | | | | | [facility] | | | | | | [facility] | | | | | | CENTER | | | | | | LABORATORY | | + + + + + + | K | 5.8 | mmol/L | [facility] | | [facility] | | [facility] | | [facility] | | | | | | [facility] | | | | | | CENTER | | | | | | LABORATORY | | + + + + + + | Na | 141 | mmol/L | [facility] | | | | [...] + + | [facility] | [address] | [place] [address] | | | [facility] | | | | | LABORATORY | | | | + + + + + Lactate (Lactic Acid), Venous (07/08/2013 2:28 PM PDT) + +-------+ + + + | Component | Value | Ref Range | Performed | Pathologist | | | | | At | Signature | + +-------+ + + + | Lactate, | 0.9 | mmol/L | [facility] | | | Venous | | | [facility] | | | [...] + + | [facility] | [address] | [place] [address] | | | [facility] | | | | | LABORATORY | | | | + + + + + Chemistry Profile, A and V, Surgery (07/08/2013 2:28 PM PDT) + + + + + + | Component | Value | Ref Range | Performed | Pathologist | | | | | At | Signature | + + + + + + | pH, | 7.31 | | [facility] | | | Arterial | Comment: | | [facility] | | | | Results delivered to: | | HE[facility] | | | | [facility] | | MEDICAL | | | | | | CENTER | | | | | | LABORATORY | | + + + + + + | pCO2, | 47 | mm Hg | [facility] | | | Arterial | | | [facility] | | | | | | [facility] | | | | | | MEDICAL | | | | | | CENTER | | | | | | LABORATORY | | + + + + + + | pO2, | 284 | mm Hg | [facility] | | | Arterial | | | [facility] | | | | | | [facility] | | | | | | MEDICAL | | | | | | CENTER | | | | | | LABORATORY | | + + + + + + | Base | 1.9 | mmol/L | [facility] | | | deficit | | | [facility] | | | | | | [facility] | | | | | | MEDICAL | | | | | | CENTER | | | | | | LABORATORY | | + + + + + + | Base | N/A | mmol/L | [facility] | | | Excess, | | | [facility] | | | Arterial | | | HEART | | | | | | MEDICAL | | | | | | CENTER | | | | | | LABORATORY | | + + + + + + | HCO3, | 23.4 | mmol/L | [facility] | | | Arterial | | | [facility] | | | | | | [facility] | | | | | | MEDICAL | | | | | | CENTER | | | | | | LABORATORY | | + + + + + + | Oxygen | 15.3 | Vol % | [facility] | | | Content, | | | [facility] | | | Arterial | | | HEART | | | | | | MEDICAL | | | | | | CENTER | | | | | | LABORATORY | | + + + + + + | Hgb, Blood | 10.6 | g/dL | [facility] | | | Gas | | | [facility] | | | | | | [facility] | | | | | | MEDICAL | | | | | | CENTER | | | | | | LABORATORY | | + + + + + + | HGB O2 SAT | 97.9 | % | [facility] | | | | | | [facility] | | | | | | [facility] | | | | | | MED[facility] | | | | | | CENTER | | | | | | LABORATORY | | + + + + + + | Carboxyhemo | 1.0 | % | [facility] | | | globin | | | [facility] | | | | | | [facility] | | | | | | MEDICAL | | | | | | CENTER | | | | | | LABORATORY | | + + + + + + | Methemoglob | 0.7 | % | [facility] | | | in, Venous | | | [facility] | | | | | | [facility] | | | | | | MEDICAL | | | | | | CENTER | | | | | | LABORATORY | | + + + + + + | pH, Venous | 7.29 | | [facility] | | | | | | [facility] | | | | | | [facility] | | | | | | [facility] | | | | | | CENTER | | | | | | LABORATORY | | + + + + + + | pCO2, | 52 | mm Hg | [facility] | | | Venous | | | [facility] | | | | | | [facility] | | | | | | MEDICAL | | | | | | CENTER | | | | | | LABORATORY | | + + + + + + | pO2, Venous | 56 | mm Hg | [facility] | | | | | | [facility] | | | | | | [facility] | | | | | | [facility] | | | | | | CENTER | | | | | | LABORATORY | | + + + + + + | O2HB KIP | 84.2 | % | [facility] | | | | | | [facility] | | | | | | MEDICAL | | | | | | CENTER | | | | | | LABORATORY | | + + + + + + | Glucose, | 128 | mg/dL | [facility] | | | POC | | | [facility] | | | | | [facility] | | | | | | MEDICAL | | | | | | CENTER | | | | | | LABORATORY | | + + + + + + | Calcium, | 4.46 | mg/dL | [facility] | | | Ionized | | | [facility] | | | | | | HE[facility] | | | | | | MEDICAL | | | | | | CENTER | | | | | | LABORATORY | | + + + + + + | Calcium, pH | 4.20 | mg/dL | [facility] | | | Normalized | | | [facility] | | | | | | HE[facility] | | | | | | MEDICAL | | | | | | CENTER | | | | | | LABORATORY | | + + + + + + | K | 6.6 | mmol/L | [facility] | | | | | | [facility] | | | | | | HEART | | | | | | MEDICAL | | | | | | CENTER | | | | | | LABORATORY | | + + + + + + | Na | 139 | mmol/L | [facility] | | | | [...] + | [facility] | [address] | [place] [address] | | | [facility] | | | | | LABORATORY | | | | + + + + + Hemoglobin, Surgery (07/08/2013 2:12 PM PDT) + + + + + + | Component | Value | Ref Range | Performed | Pathologist | | | | | At | Signature | + + + + + + | Hemoglobin | 12.1 | g/dL | [facility] | | | | Comment: | | [facility] | | | | Results delivered to: | | HEART | | | | [facility] | | MEDICAL | | | | | | CENTER | | | | | | LABORATORY | | + + + + + + + + | Specimen | + + | | + + + + + + + | Performing | Address | City/State/Zipcode | Phone Number | | Organization | | | | + + + + + | [facility] | [address] | [place] [address] | | | [facility] | | | | | LABORATORY | | | | + + + + + Lactic Acid, Arterial, Surgery (07/08/2013 1:30 PM PDT) + +-------+ + + + | Component | Value | Ref Range | Performed | Pathologist | | | | | At | Signature | + +-------+ + + + | Lactate, | 0.6 | mmol/L | [facility] | | | Arterial | | | [facility] | | | [...] + | [facility] | [address] | [place] [address] | | | [facility] CENTER | | | | | LABORATORY | | | | + + + + + Blood Gas , Arterial, Surgery (07/08/2013 1:30 PM PDT) + + + + + + | Component | Value | Ref Range | Performed | Pathologist | | | | | At | Signature | + + + + + + | pH, | 7.39 | | [facility] | | | Arterial | Comment: | | [facility] | | | | Results delivered to: | | HEART | | | | DR SHUKLA | | MEDICAL | | | | | | CENTER | | | | | | LABORATORY | | + + + + + + | pCO2, | 41 | mm Hg | [facility] | | | Arterial | | | [facility] | | | | | | HEART | | | | | | MEDICAL | | | | | | CENTER | | | | | | LABORATORY | | + + + + + + | pO2, | 427 | mm Hg | [facility] | | | Arterial | | | [facility] | | | | | | HEART | | | | | | MEDICAL | | | | | | CENTER | | | | | | LABORATORY | | + + + + + + | Base | N/A | mmol/L | [facility] | | | deficit | | | [facility] | | | | | | HEART | | | | | | MEDICAL | | | | | | CENTER | | | | | | LABORATORY | | + + + + + + | Base | 0.2 | mmol/L | [facility] | | | Excess, | | | [facility] | | | Arterial | | | HEART | | | | | | MEDICAL | | | | | | CENTER | | | | | | LABORATORY | | + + + + + + | HCO3, | 24.5 | mmol/L | [facility] | | | Arterial | | | [facility] | | | | | | HEART | | | | | | MEDICAL | | | | | | CENTER | | | | | | LABORATORY | | + + + + + + | Oxygen | 18.6 | Vol % | [facility] | | | Content, | | | [facility] | | | Arterial | | | HEART | | | | | | MEDICAL | | | | | | CENTER | | | | | | LABORATORY | | + + + + + + | Hgb, Blood | 12.7 | g/dL | [facility] | | | Gas | | | [facility] | | | | | | HEART | | | | | | MEDICAL | | | | | | CENTER | | | | | | LABORATORY | | + + + + + + | HGB O2 SAT | 98.3 | % | [facility] | | | | | | [facility] | | | | | | HEART | | | | | | MEDICAL | | | | | | CENTER | | | | | | LABORATORY | | + + + + + + | Carboxyhemo | 1.1 | % | [facility] | | | globin | | | [facility] | | | | | | HEART | | | | | | MEDICAL | | | | | | CENTER | | | | | | LABORATORY | | + + + + + + | Methemoglob | 0.5 | % | [facility] | | | in, Venous | | | [facility] | | | | | | HEART | | | | | | MEDICAL | | | | | | CENTER | | | | | | LABORATORY | | + + + + + + | Calcium, | 4.87 | mg/dL | [facility] | | | Ionized | | | [facility] | | | | | | HEART | | | | | | MEDICAL | | | | | | CENTER | | | | | | LABORATORY | | + + + + + + | Calcium, pH | 4.85 | mg/dL | [facility] | | | Normalized | | | [facility] | | | | | | HEART | | | | | | MEDICAL | | | | | | CENTER | | | | | | LABORATORY | | + + + + + + | Glucose, | 130 | mg/dL | [facility] | | | POC | | | [facility] | | | | | | HE[facility] | | | | | | MEDICAL | | | | | | CENTER | | | | | | LABORATORY | | + + + + + + | K | 4.1 | mmol/L | [facility] | | | | | | [facility] | | | | | | [facility] | | | | | | MEDICAL | | | | | | CENTER | | | | | | LABORATORY | | + + + + + + | Na | 138 | mmol/L | [facility] | | | | [...] + + | [facility] | [address] | [place] [address] | | | [facility] | | | | | LABORATORY | | | | + + + + + POC Glucose (07/08/2013 9:03 AM PDT) + +-------+ + + + | Component | Value | Ref Range | Performed | Pathologist | | | | | At | Signature | + +-------+ + + + | Glucose, | 96 | 65 - 99 mg/dL | [facility] | | | POC | | | [facility] | | | [...] + + | [facility] | [address] | [place] [address] | | | [facility] | | | | | LABORATORY | | | | + + + + + Surgical Pathology Exam (07/08/2013 12:00 AM PDT) + + | Specimen | + + | | + + + + + | Narrative | Performed At | + + + | SURGICAL PATHOLOGY REPORT | [facility] | | Date Taken: 07/08/2013 Date Received: | [place] | | 07/08/2013 Completed: 07/10/2013 Physician: KRISS CEBALLOS Copy to: [facility] | | DIAGNOSIS: Aortic valve leaflets: - Valvular | LABORATORY | | tissue with stromal fibrosis, myxoid change, and focal | | | calcification. 0 Fatuma Dubon MD Electronic signature | | | GROSS DESCRIPTION: The specimen labeled and designated "Damico, aortic | | | valve leaflets" is received in formalin and consists of three thornton | | | valve leaflets that when approximated are 7.5 cm in circumference, | | | 1.2 cm in width, and are up to 0.1 cm in thickness. No calcified | | | areas are identified. Random livestock sales representative sections are placed | | | into "A1". (AK) MICROSCOPIC DESCRIPTION: Histologic sections | | | of all submitted blocks are examined by light microscopy. These | | | findings, together with the gross examination, support the pathologic | | | diagnosis. A: [id number], [id number] [facility] [address] | | | [place] [address] or | | | Testing performed at: [facility] | | | Laboratory Alberto Najera M.D., Director [address] | | | [address] [place] [address] | | + + + + + + + + | Performing | Address | City/State/Zipcode | Phone Number | | Organization | | | | + + + + + | [facility] | [address] | [place] [address] | | | [facility] | | | | | LABORATORY | | | | + + + + + documented in this encounter Visit Diagnoses Not on filedocumented in this encounter
--- OUTSIDE RECORDS SUMMARY | ~2020-06-20 | XMS | Encounter Summary ---
Demographics + + + | Address | [address] | | | [place] [address] | + + + | Home Phone | | + + + | Preferred Language | Unknown | + + + | Marital Status | Single | + + + | Quaker Affiliation | CAT | + + + | Race | White | + + + | Ethnic Group | Not or | + + + Author + + + | Author | [facility] | + + + | Organization | [facility] | + + + | Address | Unknown | + + + | Phone | Unavailable | + + + Support + + +---------+ + | Name | Relationship | Address | Phone | + + +---------+ + | Elizabeth Damico | ECON | Unknown | | + + +---------+ + Care Team Providers + +------+ + | Care Helper Teacher Name | Role | Phone | + +------+ + PCP | Unavailable | + +------+ + Encounter Details +--------+ + + + + | Date | Type | Department | Care Team | Description | +--------+ + + + + | 11/26/ | Documentati | Anesthesiology | Unknown . | | | 2003 | on | [address] | | | | | | [place], | | | | | | [place] [address] | | | +--------+ + + + [...] + + documented as of this encounter Procedure Notes Unknown - 11/26/2003 10:18 AM PSTAssociated Order(s): ANESTHESIA/SEDATION Anesthesia PostO p Report Patient: IRAIDA DAMICO [facility] Rec: [id number] Liat Choi Bdate: 1935 Date/Time Data Entered Into [facility] Anesth PostOp Surgery Date [id number] 11/26/03 10:18 Anesthesiologist NATHAN DIETRICH 11/26/03 10:18 Complications None/None Reported YES 11/26/03 13:06 Outcomes Information Satisfied with care YES 11/26/03 13:06 Info obtained from PATIENT 11/26/03 13:06 Outcome of Anesthesia NO CHANGE IN HOSPITAL COURSE 11/26/03 13:06 documented in this encounter Plan of Treatment [...] + + documented in this encounter Results ANESTHESIA/SEDATION (11/26/2003 10:18 AM PST) + + + | Narrative | Performed At | + + + | Ordered by an unspecified provider. | | + + + + + | Transcriptions | + + | 11/26/2003 10:18 AM [facility] Anesthesia PostOp Report | | | | Patient: IRAIDA DAMICO [facility] Rec: [id number] Sex M Bdate: 1935 | | Date/Time Data | | Entered Into [facility] | | Anesth PostOp | | Surgery Date [id number] 11/26/03 10:18 | | Anesthesiologist NATHAN DIETRICH 11/26/03 10:18 | | Complications | | None/None Reported YES 11/26/03 13:06 | | Outcomes Information | | Satisfied with care YES 11/26/03 13:06 | | Info obtained from PATIENT 11/26/03 13:06 | | Outcome of Anesthesia NO CHANGE IN HOSPITAL COURSE 11/26/03 13:06 | | | + + documented in this encounter Visit Diagnoses Not on filedocumented in this encounter"
--- OUTSIDE RECORDS SUMMARY | ~2020-06-20 | XMS | Encounter Summary ---
Demographics + + + | Address | [address] | | | [place] [address] | + + + | Home Phone | | + + + | Preferred Language | Unknown | + + + | Marital Status | | + + + | Jain Affiliation | [id number] | + + + [...] [place] | | | | | [address] | | + + + + + | Scot Damico | ECON | [address] | | | | | [place] [address] | | + + + + + Care Team Providers + +------+ + | Care Contact Printer Dry Film Name | Role | Phone | + [...] | | | | symptoms and | MD [address] | [address] | | | | | signs | [address] | [address] | | | | | involving | [place] | | | | | the | [place] [address] | [place], [place] | | | | | musculoskele | Phone: | [phone] | | | | | [employer] system | [phone] | Phone: | | | | | | Fax: | [phone] | | | | | | [phone] | Fax: | | | | | | | [phone] | + +--------+ + + + + Encounter Details +--------+---------+ + + + | Date | Type | Department | Care Team | Description | +--------+---------+ + + + | 03/10/ | Office | [facility] | Dada Goodwin, | Weakness (Primary | | 2020 | Visit | NEUROLOGY [address] | MD [address] | Dx); Falls | | | | [address] | [address] | infrequently; | | | | [place], [place] | [place] [address] | Neuropathy | | | | [address] | [phone] | | | | | [phone] | | | +--------+---------+ + + + [...] to left swelling. documented in this encounter Progress Notes Dada Goodwin MD - 03/10/2020 1:30 PM PDTFormatting of this note might be different fro m the original. Subjective: Patient ID: Iraida Damico is a 84 y.o. male. HPI I have seen this patient on 12/07/2019 for evaluation of imbalance and falls. New vitis. - Onset, context and course: 2018; none; stable. - Localization, quality and severity: Upright orthostatic imbalance / lightheadedness; chaparrita re to cause falls. - Duration: Constant in upright position. - Frequency and last one: Daily. - Associated symptoms: Weakness of legs, but no incontinence, or low back pain. No dysphagi a, diplopia or shortness of breath. - Aggravating factors: Upright position. - Alleviating factors: Sitting down. - Previous record/diagnosis and treatment: Head CT from July 2019, age-related changes per report. Since last visit: He stopped Flomax, symptoms are still the same, one fall with trauma to l eft leg. Possible cellulitis on Bactrim for that. Using a cane, not yet to physical therapy. CBC, CMP, CPK, TSH, B12 and folic acid showed mildly low glucose of 62 and mildly elevated BUN of 24. Past Medical History: Diagnosis Date Acid reflux disease Aortic valve regurgitation 2005 s/p AVR 07/2013 Arthritis neck Cataract bilateral COPD (chronic obstructive pulmonary disease) ([facility]) COPD (chronic obstructive pulmonary disease) ([facility]) Degenerative joint disease rt knee-replacement done Epidural abscess 2003 related to septic in low back region Hypertension Melanoma ([facility]) 2009, 2010 x 3; 2 in head [...] bronchiectasis, followed by a lung doctor in [facility] Maternal Grandfather Social History Socioeconomic History Marital status: Spouse name: Not on file Number of children: Not on file Years of education: Not on file Highest education level: Not on file Occupational History 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 Social Needs Financial resource strain: Not on file Food insecurity: Worry: Not on file Inability: Not on file Transportation needs: Medical: Not on file Non-medical: Not on file Tobacco Use Smoking status: Never Smoker Smokeless tobacco: Never Used Substance and Sexual Activity Alcohol use: Yes Alcohol/week: 0.0 standard drinks Types: 2 - 3 Glasses of wine per week Comment: Alcoholic Drinks/day: weekly Drug use: No Comment: Drug use: No Sexual activity: Not on file Lifestyle Physical activity: Days per week: Not on file Minutes per session: Not on file Stress: Not on file Relationships Social connections: Talks on phone: Not on file Gets together: Not on file Attends anabaptism service: Not on file Active member of club or organization: Not on file Attends meetings of clubs or organizations: Not on file Relationship status: Not on file Intimate partner violence: Fear of current or ex partner: Not on file Emotionally abused: Not on file Physically abused: Not on file Forced sexual activity: Not on file Other Topics Concern Not on file Social History Narrative Lives: [place] With: his Grew up: [facility] Has previously lived in: [facility] [place] Exposure to toxic chemicals: possibly as a [...] to what mentioned in my HPI. Objective: BP 158/87 | Pulse 82 | Ht 1.727 m (5' 8") | Wt 79.4 kg (175 lb) | SpO2 100% | BMI 26.6 1 kg/m Physical Exam Vitals: Vitals: 03/10/20 1337 BP: 158/87 Pulse: 82 PainSc: 0 - No pain General: Well [...] face is sy mmetric. Voice is normal. Gait: Slow and wide based. Strength: Strength is 5-/5 in the upper and lower limbs (limitation left arm pain). Light Touch / pin prick: Impaired to above the ankles. Assessment: 1- Gait abnormality with infrequent falls, possibly due to #2, and #3 2- Neuropathy? 3- Orthostatic lightheadedness, medication related. No clear parkinsonism features. Vit D and HGBA1c are not covered by his insurance, will defer to PCP if can order them. Plan: 1- The differential diagnosis and the necessary work up were discussed with the patient in detail. 2- I reviewed the available medical record and summarized it in my HPI. 3- We discussed the safety issues in detail including safe environment. One recent falls. 4- For #1, and #2, physical exercises, wait and watch, SPEP, we may consider C/L trial in t he future. 5- For #3, reasonable hydration, elastic stockings, salt tablet twice daily with food and w atch BP at home. Next step we may consider Midodrine or fludrocortisone. 6- I covered with the patient all side effects of the regimen and the interaction with othe r medications (few of his medications can cause orthostatic symptoms). Patient understands a nd agrees to proceed with the regimen / plan. 7- Risk factors modification per PCP. RTC in 4-6 weeks or prn. However, patient was instruc yeison [...] [address] | | | | | | [place] [address] | | | | | | [phone] | | | | | | | [...] D | | | | | | [place] [address] | | | | | | [phone] | | | | | | | | +--------+ + + + + documented as of this encounter Visit Diagnoses + + | Diagnosis | + + | Weakness - Primary Other malaise and fatigue | + + | Falls infrequently Personal history of fall | + + | Neuropathy Mononeuritis of unspecified site | + + documented in this encounter
--- OUTSIDE RECORDS SUMMARY | ~2020-06-20 | XMS | Encounter Summary ---
Demographics + + + | Address | [address] | | | [place] [address] | + + + | Home Phone | | + + + | Preferred Language | Unknown | + + + | Marital Status | | + + + | Buddhism Affiliation | 1041 | + + + | Race | White | + + + | Ethnic Group | Not or | + + + Author + + + | Author | [facility] | | | and [place] | + + + | Organization | [facility] | | | [...] [place] | | | | | [address] | | + + + + + | Scot Damico | ECON | [address] | | | | | [place] [address] | | + + + + + Care Team Providers + +------+ + | Care Gear Setter Name | Role | Phone | + +------+ + | Ralph Chatman MD | PCP | | + +------+ + Encounter Details +--------+ + + + + | Date | Type | Department | Care Team | Description | +--------+ + + + + | 02/11/ | Hospital | [facility] | | | | 2012 | Encounter | MED CTR XRAY [address] | | | | | | [place] | | | | | | [place] [address] | | | | | | [phone] | | | +--------+ + + + [...] [address] | | | | | | [place] [address] | | | | | | [phone] | | | | | | | | +--------+ + + + + | 06/23/ | Procedure | Cardiology | | | | 2019 | visit | | | | +--------+ + + + + | 07/06/ | Office | Neurology | [place], [place], | | | 2020 | Visit | | [address] | | | | | | [place] [address] | | | | | | [phone] | | | | | | | | +--------+ + + + + documented as of this encounter Procedures + +--------+ + + + | Procedure Name | Priori | Date/Time | Associated Diagnosis | Comments | | | ty | | | | + +--------+ + + + | XR CHEST PA AND | Routin | 02/11/2013 | | Results for this | | LATERAL | e | 3:46 PM | | procedure are in the | | | | PDT | | results section. | + +--------+ + + + documented in this encounter Results XR Chest PA and Lateral (02/11/2013 3:46 PM PDT) + + | Specimen | + + | | + + + + + | Narrative | Performed At | + + + | [facility] Diagnostic Imaging | [place] | | Department [address] [facility] | [facility] | | [ rep [address]] [ rep [facility] | | [facility]] Signed | - IMAGING | | | | | Patient Name: IRAIDA DAMICO Physician: | | | [id number] : 1935 Age: 77 Sex: M Unit #: [id number] | | | Exam Date: 02/11/13 Location: [facility] | | | Report #: [id number] Page: | | | %(RAD)RES..mtdd.print.filter("pg") of %(RAD) | | | RES..mtdd.print.filter("tpg") | | | | | | Accession Number: [id number] | | | CHEST X-RAY, 02/11/2013 CLINICAL HISTORY: COUGH. | | | COMPARISON: None. FINDINGS: PA and lateral views of the | | | chest were obtained. There is extensive infiltrate at the | | | left lower lobe consistent with pneumonia. The right lung is clear. | | | The cardiomediastinal silhouette is normal. There is atherosclerosis | | | of the aorta. No acute osseous abnormalities are present. Fusion | | | hardware are partially imaged in the lumbar spine. | | | IMPRESSION: 1. LEFT LOWER LOBE PNEUMONIA. THIS SHOULD BE FOLLOWED | | | TO RESOLUTION TO EXCLUDE THE POSSIBILITY OF UNDERLYING MALIGNANCY. | | | COMMENT: This information was conveyed to the office of | | | Ralph Chatman. Dictated Date/Time: 02/11/2013 15:46 | | | Transcribed Date/Time: 02/11/2013 16:41 Manager Developmental: | | | <<Signature on File>> | | | Sridhar | | | MD Barak02/12/13 0028 <Electronically signed by Sridhar Cancino MD> | | | Sridhar Cancino MD 02/11/13 1546 Manager Developmental: Andreina | | | [id number]/[id number]/13 [id number] Ralph Chatman MD | | | | | + + + + + + + + | Performing | Address | City/State/Zipcode | Phone Number | | Organization | | | | + + + + + | [facility] [address] | [address] | [place] | [phone] | | [facility] | | [address] | | | - IMAGING | | | | + + + + + documented in this encounter Visit Diagnoses Not on filedocumented in this encounter
--- OUTSIDE RECORDS SUMMARY | ~2020-06-20 | XMS | Encounter Summary ---
Demographics + + + | Address | [address] | | | [place] [address] | + + + | Home Phone | | + + + | Preferred Language | Unknown | + + + | Marital Status | | + + + | Episcopal Affiliation | 1041 | + + + | Race | White | + + + | Ethnic Group | Not or | + + + Author + + + | Author | [facility] | | | and [place] | + + + | Organization | [facility] | | [...] [place] | | | | | [address] | | + + + + + | Scot Damico | ECON | [address] | | | | | [place] [address] | | + + + + + Care Team Providers + +------+ + | Care Dance Instructor Name | Role | Phone | + [...] + + | Closed | Specialty | Physical | Diagnoses | | OP ST | | | Services | Therapy | Kyphosis of | Errol, | [facility] | | | Required | | thoracic | Irina Sofia, | HOSPITAL | | | | | region | MD [address] | | | | | | [address] | [place] | | | | | | [place], | [place], [place] | | | | | | [place] [address] | [address] | | | | | | | Phone: | | | | | | | [phone] | | | | | | | Fax: | | | | | | | [phone] | +--------+ + + + + + Diagnostic/Screening (Routine) +--------+--------+ + + + + | Status | Reason | Specialty | Diagnoses / | Referred By | Referred To | | | | | Procedures | Contact | Contact | +--------+--------+ + + + + | Closed | | Radiology | Diagnoses | | [address] | | | | | Shortness | [place], | [address] | | | | | of breath | Irina B, | [place], | | | | | Procedures | MD [address] | [place] [address] | | | | | CT Chest wo | [address] | Phone: | | | | | Contrast | [place], | [phone] | | | | | | [place] [address] | Fax: | | | | | | | [phone] | +--------+--------+ + + + + Reason for Visit + + + | Reason | Comments | + + + | Shortness of Breath | symptoms since july 2013 | + + + | Cough | symptoms since july 2013 | + + + Evaluate & Treat (Routine) +--------+--------+ + + + + | Status | Reason | Specialty | Diagnoses / | Referred By | Referred To | | | | | Procedures | Contact | Contact | +--------+--------+ + + + + | Closed | | Pulmonology | Diagnoses | Sitcayetano, | Errol, | | | | | Cough | Ralph | Irina Sofia, | | | | | Procedures | MD Arturo | [address] | | | | | [place] OFFICE | [address] | | | | | CONSULTATION | Carmela | [place], | | | | | NEW/ESTAB | [address] | [place] [address] | | | | | PATIENT [address] | [place], | | | | | | MIN [place] | [place] | | | | | | OFFICE | [address] | | | | | | OUTPATIENT | Phone: | | | | | | NEW 60 | [phone] | | | | | | MINUTES [place] | Fax: | | | | | | ADV CARE | [phone] | | | | | | PLAN | | | | | | | DISCUSSED, | | | | | | | PLAN OR | | | | | | | SURROGATE | | | | | | | DOCUMENTED | | | | | | | AR | | | | | | | PNEUMOCOCCAL | | | | | | | | | | | | | | IMMUNIZATION | | | | | | | ORDERED OR | | | | | | | ADMINISTERED | | | | | | | AR CALC | | | | | | | BMI OUT NRM | | | | | | | LLOYD NOF/U | | | | | | | AR PT FALLS | | | | | | | ASSESS DOC | | | | | | | 0-1 FALLS | | | | | | | W/OUT INJ | | | | | | | PAST YR AR | | | | | | | DOC CUR MEDS | | | | | | | BY PROV AR | | | | | | | PAIN NEG NO | | | | | | | PLAN AR | | | | | | | CLIN | | | | | | | DEPRESSION | | | | | | | SCREEN NOT D | | | | | | | CURRENT | | | | | | | TOBACCO | | | | | | | NON-USER | | | | | | | NEW PT | | | | | | | CONSULT | | | +--------+--------+ + + + + Encounter Details +--------+---------+ + + + | Date | Type | Department | Care Team | Description | +--------+---------+ + + + | 06/25/ | Office | [facility] | Errol, | Shortness of breath | | 2013 | Visit | PULMONARY [address] | Irina Sofia MD | (Primary Dx); | | | | [place], | | Kyphosis of thoracic | | | | [place] [address] | | region | | | | [phone] | | | +--------+---------+ + + + [...] + + + | Blood Pressure | 114/76 | 06/25/2014 9:40 AM | | | | | PDT | | + + + + + | Pulse | 58 | 06/25/2014 9:40 AM | | | | | PDT | | + + + + + | Temperature | 36.9 C (98.5 F) | 06/25/2014 9:40 AM | | | | | PDT | | + + + + + | Respiratory Rate | 18 | 06/25/2014 9:40 AM | | | | | PDT | | + + + + + | Oxygen Saturation | 98% | 06/25/2014 9:40 AM | | | | | PDT | | + + + + + | Inhaled Oxygen | - | - | | | Concentration | | | | + + + + + | Weight | 88.5 kg (195 lb) | 06/25/2014 9:40 AM | | | | | PDT | | + + + + + | Height | 171.5 cm (5' 7.5") | 06/25/2014 9:40 AM | | | | | PDT | | + + + + + | Body Mass Index | 30.09 | 06/25/2014 9:40 AM | | | | | PDT | | + + + + + documented in this encounter Patient Instructions Patient Instructions Irina Norton MD - 06/25/2014 11:24 AM PDTWe will schedule th e breathing tests and CT scan and see you back the same day. I placed the referral to physical therapy at [facility] for the strengthening exercises. Three Breathing Exercises "Practicing regular, mindful breathing can be calming and energizing and can even help with stress-related health problems ranging from panic attacks to digestive disorders." Kushal Daly M.D. Since breathing is something we can control and regulate, it is a useful tool for achieving a relaxed and clear state of mind. I recommend three breathing exercises to help relax and reduce stress: The Stimulating Breath, The 4-7-8 Breathing Exercise (also called the Relaxin g Breath), and Breath Counting. Try each and see how they affect your stress and anxiety lev els. Exercise 1: The Stimulating Breath (also called the Amita Breath) The Stimulating Breath is adapted from a yogic breathing technique. Its aim is to raise vit al energy and increase alertness. Inhale and exhale rapidly through your nose, keeping your mouth closed but relaxed. Your br eaths in and out should be equal in duration, but as short as possible. This is a noisy lei thing exercise. Try for three in-and-out breath cycles per second. This produces a quick movement of the di aphragm, suggesting a amita. Breathe normally after each cycle. Do not do for more than 15 seconds on your first try. Each time you practice the Stimulatin g Breath, you can increase your time by five seconds or so, until you reach a full minute. If done properly, you may feel invigorated, comparable to the heightened awareness you feel after a good workout. You should feel the effort at the back of the neck, the diaphragm, th e chest and the abdomen. Try this breathing exercise the next time you need an energy boost and feel yourself reaching for a cup of coffee. Exercise 2: The 4-7-8 (or Relaxing Breath) Exercise This exercise is utterly simple, takes almost no time, requires no equipment and can be don e anywhere. Although you can do the exercise in any position, sit with your back straight wh ile learning the exercise. Place the tip of your tongue against the ridge of tissue just beh ind your upper front teeth, and keep it there through the entire exercise. You will be exhal ing through your mouth around your tongue; try pursing your lips slightly if this seems awkw karen. Exhale completely through your mouth, making a whoosh sound. Close your mouth and inhale quietly through your nose to a mental count of four. Hold your breath for a count of seven. Exhale completely through your mouth, making a whoosh sound to a count of eight. This is one breath. Now inhale again and repeat the cycle three more times for a total of f our breaths. Note that you always inhale quietly through your nose and exhale audibly through your mouth . The tip of your tongue stays in position the whole time. Exhalation takes twice as long as inhalation. The absolute time you spend on each phase is not important; the ratio of 4:7:8 is important. If you have trouble holding your breath, speed the exercise up but keep to the ratio of 4:7:8 for the three phases. With practice you can slow it all down and get used to inhaling and exhaling more and more deeply. This exercise is a natural tranquilizer for the nervous system. Unlike tranquilizing drugs, which are often effective when you first take them but then lose their power over time, thi s exercise is subtle when you first try it but gains in power with repetition and practice. Do it at least twice a day. You cannot do it too frequently. Do not do more than four breath s at one time for the first month of practice. Later, if you wish, you can extend it to eigh t breaths. If you feel a little lightheaded when you first breathe this way, do not be harper rned; it will pass. Once you develop this technique by practicing it every day, it will be a very useful tool t hat you will always have with you. Use it whenever anything upsetting happens - before you r eact. Use it whenever you are aware of internal tension. Use it to help you fall asleep. Thi s exercise cannot be recommended too highly. Everyone can benefit from it. Exercise 3: Breath Counting If you want to get a feel for this challenging work, try your hand at breath counting, a de ceptively simple technique much used in Shashank practice. Sit in a comfortable position with the spine straight and head inclined slightly forward. G ently close your eyes and take a few deep breaths. Then let the breath come naturally withou t trying to influence it. Ideally it will be quiet and slow, but depth and rhythm may vary. To begin the exercise, count "one" to yourself as you exhale. The next time you exhale, count "two," and so on up to "five." Then begin a new cycle, counting "one" on the next exhalation. Never count higher than "five," and count only when you exhale. You will know your attentio n has wandered when you find yourself up to "eight," "12," even "19." Try to do 10 minutes of this form of meditation. documented in this encounter Progress Notes Irina Norton MD - 06/25/2014 10:25 AM PDTFormatting of this note might be differe nt from the original. Pulmonary Consult Referring Provider: Ralph Chatman Steve Damico is a 79 y.o. male patient of Ralph Chatman here today for evalu ation of shortness of breath. He notes that he was diagnosed with aortic insufficiency 6-8 years ago. This was diagnosed after he was found to have a heart murmur on exam. At that time he did not have shortness of breath. He then developed shortness of breath as time went on. He notes that his cardiologi st then recommended that he have the valve replaced. The valve was replaced in July, and he had a cardiac catheterization at around the same time, and he was told that he di d not have any blockages in his arteries. He notes that post operatively, he continued to painter ve shortness of breath. 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 They then recom mended he have a pulmonary consult. He notes that he can do quite a bit of activity, but with exertion, he will get short of br eath particularly with carrying things, going up stairs. Currently they are able to walk 1 m ile at their own pace on level ground. The distance walked is predominately limited by his b reathing. One year ago, they feel that they could walk about the same distance. He does exer cise regularly. He does not walk regularly because his back gets tired with walking after hi s back surgery, so he instead does stationary biking and upper body weight lifting on the ma chines. He does cough chronically. He notes right now, he coughs fairly minimally. Right after the surgery, he coughed quite a bit, which they attributed to irritation from the surgery. He al so has had a significant cough in response to lisinopril, which was prior to his surgery. He does produce mucous, which is scant at this time. The mucous is clear in color. They have n ot had hemoptysis. Triggers for their shortness of breath include exertion. Relieving factors include resting. He does think he has developed an allergy to grass, as he gets some allergy symptoms when h e mows the lawn, but it does not seem to trigger shortness of breath. Treatments that they have tried to this point include ProAir as needed. Currently they are on ProAir as needed. He notes he has been on this a couple of times, but he uses it very lit tle. He notes he will use it when he comes in short of breath and it will help for about 10 minutes after he uses it, and by then he will have rested. He uses the ProAir once every cou ple of days. He has not tried any other inhalers. They note that on the blood pressure medications, his blood pressure and heart rate have ru n low, and they wonder if this is a contributing factor in his general fatigue. He does not snore very often, but he does sleep with his mouth open at times. He does not snort, gasp or choke in his sleep. He has stopped breathing in his sleep a couple of times, but not often. His describes him as a deep sleeper who sleeps well. He does wake up a couple of times to use the bathroom. He goes to bed around 11pm, and falls asleep quickly, and he wakes up around 6:30am to 7am. He wakes up rested. He does get tired during the daytime. He could lay down and rest, but rarely sleeps during the day. He rarely ever doses off during the day, u nless they are travelling long distances and it is his 's turn to drive. He does note having had mild asthma as a child, which did not interfere with many activitie s. 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 Ceballos Transesophageal echocardiogram 03/30/2014 ECHO TRANSESOPHAGEAL performed by Theo Garza MD at [facility] Knee arthroscopy 2002 Right Total knee arthroplasty 2006 Right Family History: Family History Problem Relation Age of Onset Cancer Mother pancreatic Hypertension Mother Stroke Maternal Grandfather Other (See Comment) Sister bronchiectasis, followed by a lung doctor in [place] Social History: History Social History Marital Status: [...] Social History Narrative Lives: [place] With: his wifeGrew up: 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 [DISCONTINUED] ferrous sulfate 325 mg tablet Take 325 mg by mouth daily (with breakfast ). [DISCONTINUED] furosemide (LASIX) 40 mg tablet Take 40 mg by mouth Daily. loperamide ([employer] ANTI-DIARRHEAL) 2 MG tablet Take 2 mg by mouth as needed. losartan (COZAAR) 100 MG tablet Take 100 mg by mouth Daily. metoprolol tartrate (LOPRESSOR) 25 mg tablet Take 25 mg by mouth 2 times daily. omeprazole (PRILOSEC) 20 mg capsule Take 20 mg by mouth every morning (before breakfast ). [DISCONTINUED] potassium chloride (K-DUR) 20 mEq tablet Take 20 mEq by mouth Daily. Review of Systems Constitutional: Denies fever, chills, sweats, and change in weight. Notes reveal he is act ually up 14 pounds this past year. Sleep: See HPI. Eyes: Denies vision change and eye irritation. ENT: Denies earache, decreased hearing, nasal congestion, nosebleeds, sore throat, and ho arseness. He notes he gets episodic nasal congestion, runny nose and sneezing. Resp: See HPI. CV: Denies chest pain, palpitations, and syncope. He does get some ankle and foot swelling . They think it is worse in the last year. GI: Denies heartburn, nausea, vomiting, and abdominal pain. : Denies difficulty emptying bladder and nocturia. Musculoskeletal: Denies joint pain/stiffness, joint swelling, and muscle cramps. Derm: Denies rash, itching, dryness, and suspicious lesions. He has a skin rash on his hand s for 6 months, he is going to his pipe fitter welding for evaluation. No history of eczema. Neurologic: Denies frequent headaches, seizures, numbness or tingling in hands or feet, and vertigo. Psych: Denies depression, anxiety, and suicidal ideation. Endo: Denies cold intolerance, heat intolerance, and unusual weight change. Heme: Denies bleeding, and enlarged lymph nodes. Notes easy bruising. Allergy: Denies food allergies, allergic rash. He thinks he has hay fever. Objective BP 114/76 | Pulse 58 | Temp 36.9 C (98.5 F) (Temporal) | Resp 18 | Ht 1.715 m (5' 7.5") | Wt 88.451 kg (195 lb) | BMI 30.07 kg/m2 | SpO2 98% General Appearance: Alert, cooperative, no distress, appears stated age Head: Normocephalic, without obvious abnormality, atraumatic Eyes: PERRL, conjunctiva clear, no scleral icterus, EOM's intact Ears: Normal TM's, external auditory canals, slightly diminished acuity Nose: Nares normal, septum midline, mucosa normal Mouth: No oral lesions or exudate Neck: Supple, symmetrical, no adenopathy Lungs: No accessory muscle use, breath sounds are slightly diminished bilaterally, no whe ezes, crackles or rhonchi Chest Wall: Some thoracic kyphosis Heart: Regular rate and rhythm, faint systolic murmur, no rub or gallop Abdomen: Soft, non-tender, non-distended Extremities: No cyanosis, clubbing, 1+ ankle edema bilaterally Pulses: Radial pulses 2+ and symmetric Skin: Warm and dry Lymph nodes: Cervical and supraclavicular nodes normal Data: Chest x-ray done October 2013 was reviewed and interpreted in clinic today. It shows flatte lety of the hemidiaphragm on lateral view suggestive of obstructive disease. He has kyphosis of the spine, and some linear discoid atelectasis. Chest x-ray from March 2013 shows a patchy ground glass to consolidative left mid lung infil trate. Echocardiogram was performed on March 30, 2014 and results were reviewed in clinic today. 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 Labs 05/20/2014 CMP shows Cr 1.09, Glu 107, otherwise normal, CBC normal, TSH normal, PSA no rmal, U/A and micro normal. PFTs were attempted with appointment today, and then the PFT machine broke. Ralph Chatman and Mio Hughes's notes were reviewed in clinic today. Immunization History Administered Date(s) Administered INFLUENZA, >= 4YO W/PRESERVATIVE IM 07/07/2013 Zoster 07/07/2012 Assessment 1. Shortness of breath - Based on available data, etiology is not readily apparent. I would speculate as to a couple of causes: asthma, though I would suspect his albuterol to help,m and for him to have allergenic triggers; COPD, based on chest x-ray findings, though he has not had any significant personal smoking history and has no significant second hand smoke ex posure, he still grew up in a generation constantly exposed to smoke, everywhere; weight gai n and deconditioning in the setting of worsening valvular disease preceded by a large back s urgery, preceded by a prolonged illness with the infection, that now replaced he has not reg ained his function back, though since he exercises a fair bit, I would expect him to have ma de more gains; bronchiectasis, though he does not usually cough, which tends to be a feature of this disease. I would suggest that we do a chest CT scan and get full PFTs once our ena perkins is working (turnaround time at [facility] is 3-4 weeks with tests being sent to [facility] and to be read). If no significant impairment is found, we can then either do a methacholine or empiric treatment for asthma. 2. Kyphosis of thoracic region - This is somewhat significant on x-ray and may play a role here. They are interested in exercises to help strengthen the core, and so we will refer to physical therapy to work with him, so he can do these on his own. Plan 1.Check chest CT scan. 2.Check full PFTs. 3.Refer to physical therapy to see if they can increase core strength and improve posture. 4. If above work up is negative, then we can try broader asthma treatment or a methacholine challenge. He was advised to call if new pulmonary symptoms were to develop. Return to clinic the week of 07/20 (based on their schedule), or sooner with concerns. CC: Ralph Chatman MD Portions of this report were transcribed using voice recognition software. Every effort wa s made to ensure accuracy; however, inadvertent computerized home care liaison errors may be pre sent. Electronically signed by: Irina Norton MD 06/25/2014 10:59 NBASE SCAN [facility] T - 06/25/2014 12:00 AM PDT d ocumented in this encounter Miscellaneous Notes Miscellaneous - ONKAPIL BALLESTEROSNV - 06/25/2014 12:00 AM PDT documented in this encounter Plan of Treatment +--------+ [...] | | | | | [place] [address] | | | | | | [phone] | | | | | | | | +--------+ + + + + | 06/23/ | Procedure | Cardiology | | | | 2019 | visit | | | | +--------+ + + + + | 07/06/ | Office | Neurology | Dada Goodwin, | | | 2019 | Visit | | [address] | | | | | | [place] | | | | | | [place] [address] | | | | | | [phone] | | | | | | | | +--------+ + + + + + + +--------+ + + | Name | Type | Priori | Associated Diagnoses | Order Schedule | | | | ty | | | + + +--------+ + + | Ambulatory referral | Outpatient | Routin | Kyphosis of | Ordered: 06/25/2014 | | to Physical Therapy | Referral | e | thoracic region | | + + +--------+ + + documented as of this encounter Results CT Chest wo Contrast (07/29/2014 12:41 PM PDT) + + | Specimen | + + | | + + + + + | Narrative | Performed At | + + + | CT CHEST WO CONTRAST . 07/29/2014 12:37 PM HISTORY: cough | MISCELANIOUS | | and dyspnea COMPARISON: Chest x-ray 02/11/2013 | LAB | | TECHNIQUE: Axial images were obtained from the base of the neck to the | | | upper abdomen without IV contrast. Multiplanar reformatted images | | | created. FINDINGS: The structures at the base of the neck are | | | unremarkable. Mildly prominent precarinal lymph node measuring 6 mm | | | in short axis is seen, subthreshold to be deemed pathologic. No | | | pathologically enlarged mediastinal lymph nodes are evident. The | | | esophagus is within normal limits. The trachea is within normal | | | limits. Calcification is seen in the aorta and branching vessels, | | | which are otherwise unremarkable. Pulmonary arterial structures | | | within normal limits. High density material at the aortic valvular | | | annulus is suggestive of prosthetic aortic valve. Heart size is | | | overall within normal limits, without pericardial effusion. | | | There is a tiny, approximately 3 mm pulmonary nodule in the left upper | | | lobe, series 4, image 57. Scarring and/or atelectasis is seen at | | | both lung bases, greater on the left than on the right, in a | | | distribution on the left similar to the area of the patient's | | | previous pneumonia from 2012. Airways within the lungs are | | | unremarkable. No pleural effusion or pneumothorax is seen. The | | | visualized upper abdominal viscera are unremarkable. Sternotomy wires | | | are present. Mild degenerative disc disease. No overt lytic or | | | blastic lesions are seen. The muscles and subcutaneous soft tissues | | | are unremarkable. IMPRESSION - Postsurgical change compatible | | | with prosthetic aortic valve. Scarring and/or atelectasis at the | | | lung bases, greater on the left than the right. Tiny, approximately | | | 3 mm pulmonary nodule in the left upper lobe. Tiny pulmonary nodules | | | are essentially a normal finding on chest CT and are seen in up to | | | 70% of individuals. The incidence of malignancy in such nodules is | | | extremely small, and even in smokers is less than 1 in 500. In a | | | nonsmoker, we recommend no additional follow-up of such a nodule, | | | since the cancer risk associated with radiation from an additional CT | | | scan is greater than the cancer risk in the nodule. In the smoker, | | | we recommend a single follow-up CT examination at 12 months, with no | | | additional follow-up if the nodule is stable. The examination should | | | be ordered as a low-dose, unenhanced chest CT. (Recommendations | | | derived from "Guidelines for Management of Small Pulmonary Nodules | | | Detected on CT Scans: A Statement from the Fleischner Society", | | | Radiology 2005; 237, 395-400.) Dictated and Signed by: Steffen Story | MD [place] Electronically signed: 07/29/2014 1:50 PM | | + + + + + | Procedure Note | + + | Jorje, Rad Results In - 07/29/2014 1:[address] CHEST WO CONTRAST . 07/29/2014 | | 12:37 PM HISTORY: cough and dyspnea COMPARISON: Chest x-ray 02/11/2013 TECHNIQUE: | | Axial images were obtained from the base of the neck to the upperabdomen without IV | | contrast. Multiplanar reformatted images created.FINDINGS: The structures at the base | | of the neck are unremarkable.Mildly prominent precarinal lymph node measuring 6 mm in | | short axis is seen,subthreshold to be deemed pathologic. No pathologically enlarged | | mediastinallymph nodes are evident.The esophagus is within normal limits.The trachea is | | within normal limits.Calcification is seen in the aorta and branching vessels, which are | | otherwiseunremarkable.Pulmonary arterial structures within normal limits.High density | | material at the aortic valvular annulus is suggestive of prostheticaortic valve. Heart | | size is overall within normal limits, without pericardialeffusion. There is a tiny, | | approximately 3 mm pulmonary nodule in the left upper lobe,series 4, image 57.Scarring | | and/or atelectasis is seen at both lung bases, greater on the left thanon the right, in | | a distribution on the left similar to the area of the patient'sprevious pneumonia from | | 2012.Airways within the lungs are unremarkable.No pleural effusion or pneumothorax is | | seen.The visualized upper abdominal viscera are unremarkable.Sternotomy wires are | | present. Mild degenerative disc disease. No overt lyticor blastic lesions are seen.The | | muscles and subcutaneous soft tissues are unremarkable. IMPRESSION - Postsurgical | | change compatible with prosthetic aortic valve.Scarring and/or atelectasis at the lung | | bases, greater on the left than theright.Tiny, approximately 3 mm pulmonary nodule in | | the left upper lobe.Tiny pulmonary nodules are essentially a normal finding on chest CT | | and are seenin up to 70% of individuals. The incidence of malignancy in such nodules | | isextremely small, and even in smokers is less than 1 in 500. In a nonsmoker, | | werecommend no additional follow-up of such a nodule, since the cancer riskassociated | | with radiation from an additional CT scan is greater than the cancerrisk in the nodule. | | In the smoker, we recommend a single follow-up CTexamination at 12 months, with no | | additional follow-up if the nodule is stable.The examination should be ordered as a | | low-dose, unenhanced chest CT.(Recommendations derived from "Guidelines for Management | | of Small PulmonaryNodules Detected on CT Scans: A Statement from the Fleischner | | Society",Radiology 2005; 237, 395-400.)Dictated and Signed by: Steffen Arnold MD | | Electronically signed: 07/29/2014 1:50 PM | |The visualized upper abdominal viscera are unremarkable. | |Sternotomy wires are present. Mild degenerative disc disease. No overt lytic | |or blastic lesions are seen. | |The muscles and subcutaneous soft tissues are unremarkable. | | | | | |IMPRESSION - | |Postsurgical change compatible with prosthetic aortic valve. | |Scarring and/or atelectasis at the lung bases, greater on the left than the | |right. | |Tiny, approximately 3 mm pulmonary nodule in the left upper lobe. | |Tiny pulmonary nodules are essentially a normal finding on chest CT and are seen | |in up to 70% of individuals. The incidence of malignancy in such nodules is | |extremely small, and even in smokers is less than 1 in 500. In a nonsmoker, we | |recommend no additional follow-up of such a nodule, since the cancer risk | |associated with radiation from an additional CT scan is greater than the cancer | |risk in the nodule. In the smoker, we recommend a single follow-up CT | |examination at 12 months, with no additional follow-up if the nodule is stable. | |The examination should be ordered as a low-dose, unenhanced chest CT. | | | |(Recommendations derived from "Guidelines for Management of Small Pulmonary | |Nodules Detected on CT Scans: A Statement from the Fleischner Society", | |Radiology 2005; 237, 395-400.) | | | |Dictated and Signed by: Steffen Arnold MD | | Electronically signed: 07/29/2014 1:50 PM | + + + +---------+ + + | Performing | Address | City/State/Zipcode | Phone Number | | Organization | | | | + +---------+ + + | [facility] | | | [phone] | + +---------+ + + | [facility]ISCEL[facility] | | | [phone] | + +---------+ + + documented in this encounter Visit Diagnoses + + | Diagnosis | + + | Shortness of breath - Primary | + + | 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
--- OUTSIDE RECORDS SUMMARY | ~2020-06-20 | XMS | Encounter Summary ---
Demographics + + + | Address | [address] | | | [place] [address] | + + + | Home Phone | | + + + | Preferred Language | Unknown | + + + | Marital Status | Single | + + + | Anglican Affiliation | CAT | + + + [...] Team Providers + +------+ + | Care Manager Exchange Name | Role | Phone | + +------+ + PCP | Unavailable | + +------+ + Encounter Details +--------+ + + + + | Date | Type | Department | Care Team | Description | +--------+ + + + + | 04/27/ | Office | | Note, Outpatient | [...] as of this encounter Progress Notes Interface, Flexible Machining System Machinist In - 05/06/2005 6:14 AM PDTClinic Date: 04/27/2004 Clinic: Mr. 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 Spine films today show that L3-L4 is nicely fused, and there is no evidence of any residual infection or osteomyelitis. 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 This is clearly chronic but will not be helped by the autofusion at L3-L4. Otherwise, he is eager to resume his activities as much as possible, and I advised him about medical therapy for intermittent back pain. I think he could take short-term courses of anti-inflammatories as necessary. He has also had some relief from Tylenol in the past. He has also had some difficulties with his right knee, and I gave him the name of Dr. Jon Vasquez, one of our orthopedic surgeons who is a specialist in joint replacement. At this point, he will return to see me on a p.r.n. basis should his back act up in the future. Maria C Vences M.D. LEO / WALDO [id number] / [id number] / [id number] / cc: Arturo Chatman M.D. [facility] [address] [place] [address] [id number] signed by Interface, Flexible Machining System Machinist In at 05/06/2005 6:1 4 AM PDTdocumented in this encounter Plan of Treatment Not on filedocumented as of this encounter Visit Diagnoses Not on filedocumented in this encounter"
--- OUTSIDE RECORDS SUMMARY | ~2020-06-20 | XMS | Encounter Summary ---
Demographics + + + | Address | [address] | | | [place] [address] | + + + | Home Phone | | + + + | Preferred Language | Unknown | + + + | Marital Status | | + + + | Voodoo Affiliation | 1041 | + + + | Race | White | + + + | Ethnic Group | Not or | + + + Author + + + | Author | [facility] | | | and [place] | + + + | Organization | [facility] | | [...] [place] | | | | | [address] | | + + + + + | Scot Damico | ECON | [address] | | | | | [place] [address] | | + + + + + Care Team Providers + +------+ + | Care Package Liner Name | Role | Phone | + +------+ + | Ralph Chatman MD | PCP | | + +------+ + Reason for Visit + +--------+ + | Reason | Onset | Comments | | | Date | | + +--------+ + | Appointment | 06/15/ | consult | | | 2013 | | + +--------+ + Encounter Details +--------+ + + + + | Date | Type | Department | Care Team | Description | +--------+ + + + + | 06/15/ | Telephone | [facility] | [place], | Appointment | | 2013 | | PULMONARY [address] | Irina Sofia MD | (consult) | | | | [place], | | | | | | [place] [address] | | | | | | [phone] | | | +--------+ + + + [...] this encounter Miscellaneous Notes Telephone Encounter - Elizabeth Martinez - 06/15/2014 4:07 PM PDTOn 06/01/14 and 06/08/14 Radha left voice messages with Patient to schedule a CAREER SERVICES OFFICER consult with Dr. Norton. On Voice message with left with patient to schedule a CAREER SERVICES OFFICER consult. At this time no appoint ment has been scheduled. If patient is to call back please schedule in the next available. N P Referral is in Dr. Fonseca CAREER SERVICES OFFICER folder. Referring Dr. Chatman has been notified the status of the referral. docu mented in this encounter Plan of [...] [address] | | | | | | [place] [address] | | | | | | [phone] | | | | | | | [...] | | | [place] [address] | | | | | | [phone] | | | | | | | | +--------+ + + + + documented as of this encounter Visit Diagnoses Not on filedocumented in this encounter"
--- OUTSIDE RECORDS SUMMARY | ~2020-06-20 | XMS | Encounter Summary ---
Demographics + + + | Address | [address] | | | [place] [address] | + + + | Home Phone [...] Author + + + | Author | [facility] | + + + | Organization | [facility] | + + + | Address | Unknown | + + + | Phone | Unavailable | + + + Support + + +---------+ + | Name | Relationship | Address | Phone | + + +---------+ + | Elizabeth Damico | ECON | Unknown | | + + +---------+ + Care Team Providers + +------+ + | Care Machine Deburrer Name | Role | Phone | + +------+ + PCP | Unavailable | + +------+ + Encounter Details +--------+ + + + + | Date | Type | Department | Care Team | Description | +--------+ + + + + | 04/27/ | Results | Neurosurgery [address]250 | Maria C Vences MD | | | 2003 | Only | [facility] | [address] | | | | | Amilcar Mailcode:[id number] | [place], [place] | | | | | [place] [employer] | [address] | | | | | [place], [place] | [phone] | | | | | [address] | | | | | | [phone] | | | +--------+ + + + [...] + | X-RAY SPINE | Routin | 04/27/2004 | | Results for this | | LUMBOSACRAL 2 VIEWS | e | 1:19 PM | | procedure are in the | | | | PDT | | results section. | + +--------+ + + + documented in this encounter Results SPINE LUMBOSACRAL 2 VIEWS (04/27/2004 1:19 PM PDT) + + + + + [...] | | | | | | M.D.STUDY: Lumbar spine | | | | | | two views. COMPARISON: | | | | | | 01/27/04. FINDINGS: There | | | | | | is persistent marked | | | | | | disc space narrowing at | | | | | | L3-4 andL4-5. The L4 on | | | | | | L5 grade 1 | | | | | | spondylolisthesis is | | | | | | unchanged. There | | | | | | hasbeen progression of | | | | | | the L4-5 end plate | | | | | | irregularity with | | | | | | furtherdestruction of | | | | | | the anterior-superior | | | | | | vertebral body of L5, | | | | | | consistentwith discitis. | | | | | | There is disc space | | | | | | narrowing, endplate | | | | | | plate sclerosis and | | | | | | osteophyteformation at | | | | | | L5-S1. Laminectomies are | | | | | | noted from L3-5. | | | | | | There ispersistent | | | | | | focal kyphosis and levo | | | | | | curvature of the lower | | | | | | lumbarspine. The upper | | | | | | lumbar and lower | | | | | | thoracic spine appears | | | | | | normal. Thebowel gas | | | | | | pattern is normal. | | | | | | IMPRESSION: 1. | | | | | | Persistent disc space | | | | | | narrowing and | | | | | | progressive | | | | | | destructivechanges at | | | | | | L4-5, suggesting | | | | | | progression of septic | | | | | | spondylitis. MRI | | | | | | isrecommended to further | | | | | | characterize this | | | | | | process. 2. Stable | | | | | | grade 1 | | | | | | spondylolisthesis of | | | | | | L4-5. 3. Stable severe | | | | | | degenerative disc | | | | | | disease at L5-S1. | | | | + + + + + + + + | Specimen | + + | | + + + +---------+ + + | Performing | Address | City/State/Zipcode | Phone Number | | Organization | | | | + +---------+ + + | [place] [facility] | | | | [facility] | | | | + +---------+ + + documented in this encounter Visit Diagnoses Not on filedocumented in this encounter"
--- OUTSIDE RECORDS SUMMARY | ~2020-06-20 | XMS | Encounter Summary ---
Demographics + + + | Address | [address] | | | [place] [address] | + + + | Home Phone [...] + + + | Author | [facility] | | | and [place] | + + + | Organization | [facility] | | | [...] [place] | | | | | [address] | | + + + + + | Scot Damico | ECON | [address] | | | | | [place] [address] | | + + + + + Care Team Providers + +------+ + | Care Ship Rigger Apprentice Name | Role | Phone | + +------+ + | Ralph Chatman MD | PCP | | + +------+ + Reason for Visit +---------+--------+ + | Reason | Onset | Comments | | | Date | | +---------+--------+ + | Results | 08/11/ | Overnight pulse oximetry results | | | 2013 | | +---------+--------+ + Encounter Details +--------+ + + + + | Date | Type | Department | Care Team | Description | +--------+ + + + + | 08/11/ | Telephone | [facility] [place] | [place], | Results (Overnight | | 2013 | | PULMONARY [address] | Irina Sofia MD | pulse oximetry | | | | [place], | | results) | | | | [place] [address] | | | | | | [phone] | | | +--------+ + + + [...] Telephone Encounter - Krupa Pavon RN - 08/12/2014 10:30 AM PSTRecall entered for 08/[address] Norton. elephone Encounter - Irina Norton MD - 08/11/2014 4:22 PM PSTNote d. I think that sounds reasonable. Can we put in for follow up- if he decides to not do the sleep study, he needs a repeat overnight oximetry on 2L. If he does the sleep study, he does not need the follow up oximetry. We could do a follow up phone call after his scheduled fol low up with Dr. Chatman. P M PSTTelephone Encounter - Krupa Pavon RN - 08/11/2014 3:18 PM PSTReceived overnight p ulse oximetry results by fax from [facility]. After Dr. Norton reviewed she responded: Lena ent almost certainly has sleep apnea and recommend sleep study if patient is willing. Start patient on O2 at night, 2 L, uses [facility]. Relayed message to [place]. He said he wants to wait to do the sleep study and wait to start O2 at night. Belen wishes to discuss the message from Dr. Norton with his PCP (he has a appt with PCP 08/23/14). Belen requested I fax a copy of the oximetry results with Dr. Norton's comments to PCP. I confirmed PCP fax and sent. Patient is scheduled for f/u with Dr. Norton October 2014. documented in this encounter Plan of Treatment [...] | | | | | | [place] [address] | | | | | | [phone] | | | | | | | [...] | | | [place] [address] | | | | | | [phone] | | | | | | | | +--------+ + + + + documented as of this encounter Visit Diagnoses Not on filedocumented in this encounter"
--- OUTSIDE RECORDS SUMMARY | ~2020-06-20 | XMS | Encounter Summary ---
Demographics + + + | Address | [address] | | | [place] [address] | + + + | Home Phone [...] + + + | Author | [facility] | | | and [place] | + + + | Organization | [facility] | | | [...] [place] | | | | | [address] | | + + + + + | Scot Damico | ECON | [address] | | | | | [place] [address] | | + + + + + Care Team Providers + +------+ + | Care Store Consultant Name | Role | Phone | + +------+ + | Ralph Chatman MD | PCP | | + +------+ + Encounter Details +--------+ + + + + | Date | Type | Department | Care Team | Description | +--------+ + + + + | 05/31/ | Orders Only | [facility] [place] | [place], | Cough (Primary Dx) | | 2013 | | PULMONARY [address] | Irina Sofia MD | | | | | [place], | | | | | | [place] [address] | | | | | | [phone] | | | +--------+ + + + [...] | | | | | [place] [address] | | | | | | [phone] | | | | | | | [...] | | | [place] [address] | | | | | | [phone] | | | | | | | | +--------+ + + + + + + +--------+ + + | Name | Type | Priori | Associated Diagnoses | Order Schedule | | | | ty | | | + + +--------+ + + | * [facility] | Respiratory | [facility] | Cough | 1 Occurrences | | [facility])Pulmonary | Care | | | starting 05/31/2014 | | Function Testing - | | | | until 05/31/2015 | | [facility]B Referral | | | | | + + +--------+ + + documented as of this encounter Visit Diagnoses + + | Diagnosis | + + | Cough - Primary | + + documented in this encounter"
--- OUTSIDE RECORDS SUMMARY | ~2020-06-20 | XMS | Encounter Summary ---
Demographics + + + | Address | [address] | | | [place] [address] | + + + | Home Phone | | + + + | Preferred Language | Unknown | + + + | Marital Status | | + + + | Gnosticism Affiliation | 1041 | + + + | Race | White | + + + | Ethnic Group | Not or | + + + Author + + + | Author | [facility] | | | and [place] | + + + | Organization | [facility] | | | and [...] [place] | | | | | [address] | | + + + + + | Scot Damico | ECON | [address] | | | | | [place] [address] | | + + + + + Care Team Providers + +------+ + | Care Bike Assembler Name | Role | Phone | + +------+ + PCP | Unavailable | + +------+ + Encounter Details +--------+ + + + + | Date | Type | Department | Care Team | Description | +--------+ + + + + | 12/21/ | Hospital | [facility] | Zeferino Cano, | | | 2009 - | Encounter | SURGICAL ORTHO [address] | [address] | | | | | [address] [facility] | [address] | | | 12/23/ | | [place] | [place] [address] | | | 2009 | | [address] | [phone] | | | | | [phone] | | | +--------+ + + + [...] documented as of this encounter Miscellaneous Notes Op Note - Zeferino Cano MD - 08/12/2013 7:29 AM PST DATE: 12/22/2009 SURGEON: Zeferino Cano MD PREOPERATIVE DIAGNOSIS: 1. 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 2. Degenerative spondylolisthesis L2-3. 3. Spinal stenosis L2-L3. POSTOPERATIVE DIAGNOSIS: 1. 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 2. Degenerative spondylolisthesis L2-3. 3. Spinal stenosis L2-L3. OPERATION: 1. Anterior lumbar interbody fusion using minimally invasive lateral technique (XLIF) at L 2-L3 while the main title is anterior and posterior lumbar fusions at L2-L3. 2. Anterior lumbar interbody fusion. 3. Minimally invasive posterior spinal fusion at L2-L3 with interfacet fusion. 4. Minimall y invasive pedicle screw instrumentation, SpheRx DBR system L2-L3. 5. NeuroVision monitorin g with free running EMGs, pedicle screw checks and surgeon driven intraoperative monitoring . 6. Bone marrow aspirate, left iliac crest. PLASTICS FITTER: JOSÉ Jimenez. ANESTHESIA: General. COMPLICATIONS: None. BLOOD LOSS: 25 cc for the XLIF, 25 cc posterior, 50 cc total. INDICATIONS: Mr. Damico is a 74-year-old gentleman with a history of epidural abscess, exte nsive laminectomies and autofusion L3-S1. He has degenerative facet disease with facet fusi ons and spondylolisthesis at L2-L3 with loss of disc height and large disc bulge resulting in stenosis. The patient was brought to the operating room for the above. OPERATIVE PROCEDURE: After induction of general anesthesia, the patient was positioned in the right decubitus position for a left-sided approach, broke the table after taping the pa tient to the table and then obtaining through AP and lateral views centralizing on the L2-L 3 level. Following that, we made a small lateral incision 1 inch in length. This was on top of the eleventh rib. We then proceeded posteriorly with my finger until I felt the psoas, and then inserted the first dilator onto the psoas and after verifying with NeuroVision an d lateral fluoroscopy, we proceeded ahead with fixing the first dilator with a pen and then further dilators and inserted MaXcess, centralized it over the disc space, slightly regional dedicated truck driver iorly. Then verified AP and lateral again before proceeding with total discectomy and brooks ring disc height. We then used a 12 mm lordotic 55 mm interbody device packed with OsteoCel saturated with bone GERTRUDIS DAMICO : 35 | Signed MR# [id number] ACCT# [id number] | ADM 12/21/09 DS 12/23/09 DIS IN | Zeferino Cano MD | [facility] ES: B R pt [id number] | OPERATIVE REPORT THIS REPORT IS CONFID ENTIAL AND NOT TO BE RELEASED WITHOUT PROPER AUTHORIZATION. marrow. BONE MARROW ASPIRATE: This was done from the left iliac crest, aspirating 10 cc of bone ma rrow to mix with Osteocel. POSTERIOR SPINAL FUSION: After closing the lateral incision and flipping the patient onto a second operating table over longitudinal rolls to decompress the abdomen. All bony promin ences were padded. Head and neck, shoulders and elbows were all supported. Posterior spinal fusion was achieved through a 1 inch incision used for insertion of the screws. Palpation of the facet joint was done and then under direct vision, I used a high-speed bur to the bu r the facet joint and packed OsteoCel inside the facet joint for the purpose of posterior fusion. INSTRUMENTATION L2-L3: This was done using percutaneous technique, using SocialShield DBR system , cannulated the pedicles using NeuroVision monitoring. Used IPAS needles and then K wires, and then tapped and inserted the screws. It was noted that the right L4 screw was medializ ed; however, we did have good values with the NeuroVision, except for a short burst of free run activity, however, the IPAS needle and taps had excellent values throughout including the screw itself. To remove all benefit of the doubt, I went ahead and removed that screw and palpated the inside of the pedicle directly with the NeuroVision probe, and had excelle nt values and felt all four quadrants and therefore, the screw was in excellent position, a lthough it looked medialized on x-ray. However, it was not passed midline. We re-inserted t he screw on the same pass and inserted the shekhar again and locked it into place. Thorough irr igation was done. Closed both incisions in layers with luis alberto for the skin. The patient t olerated the procedure well and left the operating room in good condition. Zeferino banda MD AGT:everett Job ID:[id number] Doc ID:[id number] cc: Zeferino Cano MD, <Dictator> Electronically Signed 12/28/09 1024 MD PHILLIP [place] LAVER NE F : 35 | Signed MR# [id number] ACCT# [id number] | ADM 12/21/09 DS 12/23/09 DIS IN | Zeferino Cano MD | [facility] ES: B R pt [id number] | OPERATIVE REPORT THIS REPORT IS CONFID ENTIAL AND NOT TO BE RELEASED WITHOUT PROPER AUTHORIZATION. Miscellaneous - Zeferino Cano MD - 08/12/2013 7:29 AM IRAIDA KEATING [facility] Lala AM ANIYAH-OPERATIVE RECORD UN# [id number] AC# [id number] 1935 ADM DATE 12/21/2009 Page 1 Patient Nam e: IRAIDA DAMICO Unit#: [id number] Procedure(s ): LUMBAR FUSION XLIF LATERAL Procedure(s): LUMBAR FUSION & PLATING POSTE RIOR Surgery Tim e: 12/21/2009 OR Room: [facility] Case Type: ELECTIVE ASA: 2 Site Initialed? Xray Surgeon 1: Zeferino Cano Procedure(s ): L-2-3 XLIF/MAS PSF/DBR INSTRUMENTATION/NEUROVISION P A / SA/ PS: Kevin Sol Anesthesia Type: General ANESTHESIA MD: Aguilar Payton INSTRUMENT CALIBRATOR: Zafar Menard CRNA By entering information in this [place] Protocol Section, you will be verifying t he Correct Patient Identity, Correct Side and Site, Agreement on Procedure(s) to be done , Correct patient position, Availability of correct implants and any special equipment or special requirements. Time Out?: Y TIME: 1540 SITE: LUMBAR 2-3 ALL PARTICIPATING TEAM MEMBERS: GIO HEATON BAZZANO, STEINER, SCHADE Pre-OP Diagnosis: DEGEN DISC DISEASE Initial Skin Integrity WNL? Y Comment: Posit ion 1 Devices OR Staff Privileged Staff Lateral Left Up P illows LAVON POWERS RN,Zeferino Armboards ZAFAR MENARD CRNA Gel pads Egg Crate Rolled Towel Position 2 Prone Pillows LAVON POWERS RN,Zeferino Foam headrest ZAFAR MENARD CRNA Armboards Wrist pads Safety strap (Belt) Comment:PT. BRO UGHT TO OR VIA STRETCHER. ASSISTED TO OR TABLE Comment:SUPINE ARMS AT SIDE ON WE LL PADDED ARMBOARDS. AFTER Comment:INDUCTION DR. CANO POSITIONED PT. LATERAL LEFT SIDE UP Comment:WITH OR STAFF PILLOWS INBETWEEN ARMS EGGCRATE UNDER Comment:AXILLARY ADHESIVE TAPE PLACED TO HOLD PT. IN POSITION BLUE Comment:TOWEL S UNDER TAPE ON HIP AND LEFT LEG. PILLOWS INBETWEEN Comment:LEGS.PT. AND STAFF PT. TURNED PRONE AT 1652 FOR Comment:SECOND PORTION OF PROCEDURE ARMS ON WELL PADDED ARMBOARDS Comment:UP BY HEAD,GEL CHEST ROLLS AND PILLOWS UNDER FEET. GENITALS Comment:CHECKED BY RN EGG CRATE ON ENTIRE BED. SAFTEY STRAP ACROSS Comment:IRAIDA MADRIGAL [facility] Lala ACKERMAN ANIYAH-OPERATIVE RECORD # [id number] # [id number] ADM DATE 12/21/2009 Page 2 Temperature Control Methods: Warm IV Solutions Temperature Control Methods: Warm Blankets Comment: WARM BLANKET ON OR TABLE UNDER PATIENT. Tourn iquets: N Anti-embolitic Therapy: Y Device(s): AV Impulse Foot Wrap Applied by: LAVON POWERS RN ESU: Y Unit #: [id number] Pad Location: THIGH L/R: L Comment/Applied by: SHERRON Urinary Catheter Inserted: Y Cathether in Place on Arrival: N Type: Indwelling Size: 16 Drain: Bedside [place] By : LAVON POWERS RN Urine Appearance Pre-Op: Clear / Lt Yellow Comments: BALLO N INFLATED WITH 10 CC SALINE Hair Removal in OR: N Type: Surgical Prep: Y Solution:Betadine Gel Site:Lateral Lumbar-Mid abd to mid By: LAVON POWERS Laser: N Allergies: See patient chart/MAR Irrigations Applicable: Y Irrigations: Normal Saline CC Qty: 1000 Meds added: 50.000 UNITS BACITRACIN Medications Applicab le: Y Drug: BUPIVICAINE Route: On Surgical field Amount Admin: 0.5%PLAIN Intra-op X-rays: Y Implants: Y Item Calender Worker Helper Catalog # Description [id number] NV SV [id number] BONE MATRIX OSTEOCEL PLUS 5CC [id number] NVSV [id number] 5 SCREW NICOLE POLYAXIAL 6.5X45MM [id number] NVSV [id number] LOCK SCREW SPHERX [id number] NVSV [id number] K-WIRE LONG BEVEL TIP 727 100964V NVSV [id number] SHEKHAR DBR 27.5MM [id number] NVSV [id number] SHEKHAR DBR 30.0MM [id number] NVSV [id number] CAGE COROENT X-LG 10D 12X Lot # Site/Size Qty [id number] BACK 1 4 4 5 1 1 1 OtheR Implants:NUVASIVE SEE SHEET Specimens: N Drains N Packing: N Dressings: Y IRAIDA DAMICO [facility] Tohmeh AM ANIYAH-OPERATIVE RECORD UN# [id number] AC# [id number] 1935 ADM DATE 12/21/2009 Page 3 Gauze Tape Steristrips ABD Telfa Tegaderm Peripad Cotton Roll Y Y Y Y Fluffs Webril Kerlix Zayda Xeroform Adaptic Coban Grady Y Cell Saver: N Unit #: Amount Reinfused: Counts Applicable: Y Count: INITIAL COUNT Result: Done Count: FIRST COUNT Result: Correct Count: FINAL COUNT Result: Correct Count: FIRST COUNT PROC #2 Result: Correct Count: FINAL COUNT PROC #2 Result: Correct RN: LAVON POWERS RN Scrub: EMILY BARTON RN: LAVON POWERS RN Scrub: EMILY BARTON RN: LAVON POWERS RN Scrub: EMILY BARTON RN: VIRGILIO HOLCOMB RN Scrub: EMILY BARTON RN: VIRGILIO HOLCOMB RN Scrub: EMILY BARTON Surgeon Notified of Count Results: Y Post-Op Diagnosis: SAME Transferred to : PACU Phase I Mode: Bed Pt free from periop injury: Y Belongings: Clothing Disposition: To PACU with pt Instruments Flashe d? Y Autoclave Number: 2 Items Flashed: Instr Tray Run #: [id number] Time in Room: 1521 Procedure Start: 1600 Wound Class: 01 Last Procedure End: 1815 Emre e out Room: 182 Pre-op Antibiotic: Y Time Adm: 1523 Med Given IVPB: 1 GM ANCEF Delay: NA Delay Comment: NA Staff: LAVON POWERS RN Staff: EMILY BARTON QUARTZ MOUNTER Staff: MARQUISE VASQUEZ QUARTZ MOUNTER Staff: MORGAN PALUMBO Staff: VIRGILIO HOLCOMB RN Time In Time Out 1724 Role: 1st Groundskeeping Maintenance Time In Time Out Role: 1st Scrub Time In 1645 Time Out 1810 Role: Scrub Relief Time In 1810 Time Out Role: Scrub Relief Time In 1710 Time Out Role: Groundskeeping Maintenance Relief Other: HENRI SANTIAGO Role: Director [employer] All danielson reviewed and updated as necessary. Y Printed 0945 End of Document Electronical ly signed by Zeferino Cano MD at 08/13/2013 5:35 AM PSTdocumented in this encounter Plan of Treatment +--------+ [...] | | | | | [place] [address] | | | | | | [phone] | | | | | | | [...] | | | [place] [address] | | | | | | [phone] | | | | | | | | +--------+ + + + + documented as of this encounter Procedures + +--------+ + + + | Procedure Name | Priori | Date/Time | Associated Diagnosis | Comments | | | ty | | | | + +--------+ + + + | HISTORICAL IMAGING | | 12/21/2009 | | Results for this | | RESULT | | 6:21 PM | | procedure are in the | | | | PDT | | results section. | + +--------+ + + + | HISTORICAL IMAGING | | 12/21/2009 | | Results for this | | RESULT | | 11:28 AM | | procedure are in the | | | | PDT | | results section. | + +--------+ + + + documented in this encounter Results Historical Imaging Result (12/21/2009 6:21 PM PDT) + + | Specimen | + + | | + + + + + | Narrative | Performed At | + + + | Exam Performed Location: [facility] | MISCELANIOUS | | LUMBAR SPINE CLINICAL INFORMATION: 74-year-old with lumbar | LAB | | fusion. COMPARISON: Plain radiographs 10/25/2009. PROCEDURE: | | | Two fluoroscopic images. FINDINGS: Exam was performed for | | | localization purposes. Lumbar fusion hardware is present with | | | paired pedicle screws, rods and interbody spacer. IMPRESSION: | | | Exam performed for localization purposes as above. | | + + + + + | Procedure Note | + + | Jorje, Rad Conversion - 07/31/2013 7:52 PM PDT Exam Performed Location: [facility] | | at [facility] SPINECLINICAL INFORMATION:74-year-old with lumbar | | fusion.COMPARISON:Plain radiographs 10/25/2009.PROCEDURE:Two fluoroscopic | | images.FINDINGS:Exam was performed for localization purposes. Lumbar fusionhardware is | | present with paired pedicle screws, rods and interbodyspacer.IMPRESSION:Exam performed | | for localization purposes as above. | | | |COMPARISON: | |Plain radiographs 10/25/2009. | | | |PROCEDURE: | |Two fluoroscopic images. | | | |FINDINGS: | |Exam was performed for localization purposes. Lumbar fusion | |hardware is present with paired pedicle screws, rods and interbody | |spacer. | | | |IMPRESSION: | |Exam performed for localization purposes as above. | + + + +---------+ + + | Performing | Address | City/State/Zipcode | Phone Number | | Organization | | | | + +---------+ + + | M[facility]ANEOUS LAB | | | [phone] | + +---------+ + + | MISCELANIOUS LAB | | | [phone] | + +---------+ + + Historical Imaging Result (12/21/2009 11:28 AM PDT) + + | Specimen | + + | | + + + + + | Narrative | Performed At | + + + | Exam Performed Location: [facility] | MISCELANIOUS | | PA AND LATERAL CHEST X-RAY CLINICAL INFORMATION: Preoperative for | LAB | | back surgery. Followup right lower lobe infiltrates. | | | COMPARISON: 11/21/2009. FINDINGS: The bones and soft tissues | | | appear unremarkable for age and body habitus. There is intramural | | | calcification of the thoracic aortic arch. The size of the | | | pericardial cardiac silhouette is felt to be upper limits of normal. | | | The pulmonary franklyn and pulmonary vasculature are within normal | | | limits. There has been interval resolution of the previous right | | | lower lobe infiltrates consistent with resolved pneumonitis. There | | | is an approximate 8 mm nodular density in the plane of the right | | | sixth rib anteriorly. In this location, this probably represents a | | | nipple shadow. Would recommend a repeat PA chest x-ray with right | | | nipple markers. IMPRESSION: 1. Interval resolution of previous | | | right lower lobe infiltrate consistent with resolved pneumonitis. 2. | | | 8 mm nodular density in the plane of the right anterior sixth rib | | | probably represents a nipple shadow. Recommend repeat PA chest | | | x-ray with nipple markers to confirm. | | + + + + + | Procedure Note | + + | Jorje, Rad Conversion - 07/31/2013 7:40 PM PDT [facility]INICAL INFORMATION:Preoperative for | | back surgery. Followup right lower lobeinfiltrates.COMPARISON:11/21/2009.FINDINGS:The | | bones and soft tissues appear unremarkable for age and bodyhabitus. There is intramural | | calcification of the thoracic aorticarch. The size of the pericardial cardiac | | silhouette is felt to beupper limits of normal. The pulmonary franklyn and | | pulmonaryvasculature are within normal limits. There has been intervalresolution of the | | previous right lower lobe infiltrates consistentwith resolved pneumonitis. There is an | | approximate 8 mm nodulardensity in the plane of the right sixth rib anteriorly. In | | thislocation, this probably represents a nipple shadow. Wouldrecommend a repeat PA | | chest x-ray with right nipple markers.IMPRESSION:1. Interval resolution of previous | | right lower lobe infiltrateconsistent with resolved pneumonitis.2. 8 mm nodular density | | in the plane of the right anterior sixthrib probably represents a nipple shadow. | | Recommend repeat PA chestx-ray with nipple markers to confirm. | |arch. The size of the pericardial cardiac silhouette is felt to be | |upper limits of normal. The pulmonary franklyn and pulmonary | |vasculature are within normal limits. There has been interval | |resolution of the previous right lower lobe infiltrates consistent | |with resolved pneumonitis. There is an approximate 8 mm nodular | |density in the plane of the right sixth rib anteriorly. In this | |location, this probably represents a nipple shadow. Would | |recommend a repeat PA chest x-ray with right nipple markers. | | | |IMPRESSION: | |1. Interval resolution of previous right lower lobe infiltrate | |consistent with resolved pneumonitis. | |2. 8 mm nodular density in the plane of the right anterior sixth | |rib probably represents a nipple shadow. Recommend repeat PA chest | |x-ray with nipple markers to confirm. | + + + +---------+ + + | Performing | Address | City/State/Zipcode | Phone Number | | Organization | | | | + +---------+ + + | [facility] | | | [phone] | + +---------+ + + | MISCEL[facility]OUS LAB | | | [phone] | + +---------+ + + documented in this encounter Visit Diagnoses Not on filedocumented in this encounter"
--- OUTSIDE RECORDS SUMMARY | ~2020-06-20 | XMS | Encounter Summary ---
Demographics + + + | Address | [address] | | | [place] [address] | + + + | Home Phone | | + + + | Preferred Language | Unknown | + + + | Marital Status | | + + + | [employer] Affiliation | 1041 | + + + | Race | White | + + + | Ethnic Group | Not or | + + + Author + + + | Author | [facility] | | | and [place] | + + + | Organization | [facility] | | | [...] [place] | | | | | [address] | | + + + + + | Scot Damico | ECON | [address] | | | | | [place] [address] | | + + + + + Care Team Providers + +------+ + | Care Bus Assistant Name | Role | Phone | + +------+ + PCP | Unavailable | + +------+ + Encounter Details +--------+ + + + + | Date | Type | Department | Care Team | Description | +--------+ + + + + | 10[facility]14/ | [facility] Zeferino Reeves, | | | [facility] | Encounter | [facility]ILY NUCLE[facility] | [address] | | | | | MEDICINE [address] | | | | | [address] | [place] [address] | | | | | [place], [place] | [phone] | | | | | [address] | | | | | | [phone] | | | +--------+ + + + [...] [address] | | | | | | [place] [address] | | | | | | [phone] | | | | | | | [...] | | | [place] [address] | | | | | | [phone] | | | | | | | | +--------+ + + + + documented as of this encounter Visit Diagnoses Not on filedocumented in this encounter"
--- OUTSIDE RECORDS SUMMARY | ~2020-06-20 | XMS | Encounter Summary ---
Demographics + + + | Address | [address] | | | [place] [address] | + + + | Home Phone [...] Team Providers + +------+ + | Care Contribution Solicitor Name | Role | Phone | + +------+ + PCP | Unavailable | + +------+ + Encounter Details +--------+ + + + + | Date | Type | Department | Care Team | Description | +--------+ + + + + | 12/15/ | Office | | Note, Outpatient | [...] as of this encounter Progress Notes Interface, Concrete Mixer Operator Helper In - 2005 10:48 PM PDTClinic Date: 12/16/2003 Clinic: Neurosurgery Mr. Damico is status post L3-L4 laminectomy on November 25, 2003, for treatment of an L3-L4 epidural abscess. The intraoperative culture did not grow anything although it showed 1+ Propionibacterium. The patient has been treated with ampicillin and gentamicin since. The patient has been in rehab since. He has been ambulating with the aid of a walker. He is using his TLSO at all times except when he is sleeping. Strength in his lower extremities today is 5/5 in the left lower extremity and 4/5 in the right lower extremity proximally and distally, primarily secondary to back pain. The patient's wound has healed nicely. An x-ray scan of the patient's lumbar spine shows disappearance of L3-L4 disk and autofusion at L3-L4. Our plan at this point is to continue the current course of antibiotics for a total of 6 weeks. We will see the patient in our clinic in another 6 weeks from now with a repeat x-ray. Francis Moe M.D. CONSTANCE / WALDO [id number] / [id number] / [id number] / Tdocumented in this encounter Plan of Treatment Not on filedocumented as of this encounter Visit Diagnoses Not on filedocumented in this encounter"
--- OUTSIDE RECORDS SUMMARY | ~2020-06-20 | XMS | Encounter Summary ---
Demographics + + + | Address | [address] | | | [place] [address] | + + + | Home Phone | | + + + | Preferred Language | Unknown | + + + | Marital Status | Single | + + + | Congregation Affiliation | CAT | + + + [...] Team Providers + +------+ + | Care Weapons Designer Name | Role | Phone | + +------+ + PCP | Unavailable | + +------+ + Encounter Details +--------+ + + + + | Date | Type | Department | Care Team | Description | +--------+ + + + + | 11/25/ | Orders Only | | Record, Operation | | | 2004 | | | | | +--------+ + [...] documented as of this encounter Procedure Notes Interface, Equipment Hire Manager In - 09/26/2005 6:19 AM PSTDate: Attending Surgeon: Maria C Vences M.D. Time Piece Repairer(s): Mc Arnold M.D. Preoperative Diagnosis: L3-L4 epidural abscess. Postoperative Diagnosis(es): L3-L4 inflammatory tissue. Procedures Performed: L3 and L4 total laminectomy, bilateral L3-L4 and L4-L5 foraminotomy. Anesthesia: General endotracheal anesthesia. Complications: None. Specimens: Indications: As per dictated by Dr. Vences. Procedure: The patient was properly identified and taken to the Operating Room. He was put under general anesthesia, and venous lines were placed. He was then put in the prone position over the Elie frame. After sterile prepping and draping, the midline skin incision was done from the L2 spinous process to L5 spinous process and then the subcutaneous tissue was dissected down to the fascia. Fascia was opened bilaterally in the midline, and then the paravertebral muscles were dissected subperiosteally from the L3 and L4 lamina. After confirmation of the L4 lamina by using a portable x-ray, we did the total laminectomy to the L3 and L4 by using Adson rongeur and Kerrison rongeur, #3 and #4 and then we did wide foraminotomy at the L3-L4 and the L4-L5 levels. There was an inflammatory tissue at the epidural space of the L3-L4 and L4-L5 space. We got the specimen for culture and the pathology and also we got the culture swab. Then, after irrigation with the bacitracin solution, we did the hemostasis and then we closed the muscle and the fascia with 0 Vicryl, subcutaneous tissue with 3-0 Vicryl, and the skin was reapproximated with 4-0 Caprosyn. There was no complication. The patient tolerated the procedure well and was taken to the Recovery Room. Mc Arnold M.D. Maria C Vences M.D. LASHON / [id number] / [id number] / [id number] / [id number] Tdocumented in this encounter Plan of Treatment Not on filedocumented as of this encounter Procedures + +--------+ + + + | Procedure Name | Priori | Date/Time | Associated Diagnosis | Comments | | | ty | | | | + +--------+ + + + | OPERATION RECORD | | 11/25/2003 | | Results for this | | | | | | procedure are in the | | | | | | results section. | + +--------+ + + + documented in this encounter Results OPERATION RECORD (11/25/2003) + + | Transcriptions | + + | Interface, Equipment Hire Manager In - 09/26/2005 6:19 AM PST Date: | | 11/25/2003Attending Surgeon: Maria C Vences M.D.Time Piece Repairer(s): | | Mc Arnold M.D.Preoperative Diagnosis:L3-L4 epidural | | abscess.Postoperative Diagnosis(es):L3-L4 inflammatory tissue.Procedures Performed:L3 | | and L4 total laminectomy, bilateral L3-L4 and L4-L5 foraminotomy.Anesthesia:General | | endotracheal anesthesia.Complications:None.Specimens:Indications:As per dictated by | | Ru.Procedure:The patient was properly identified and taken to the Operating Room. | | Hewas put under general anesthesia, and venous lines were placed. He wasthen put in | | the prone position over the Elie frame. After sterileprepping and draping, the | | midline skin incision was done from the L1txghult process to L5 spinous process and then | | the subcutaneous tissue wasdissected down to the fascia. Fascia was opened bilaterally | | in themidline, and then the paravertebral muscles were dissected subperiosteallyfrom | | the L3 and L4 lamina. After confirmation of the L4 lamina by using aportable x-ray, we | | did the total laminectomy to the L3 and L4 by usingAdson rongeur and Kerrison rongeur, | | #3 and #4 and then we did wideforaminotomy at the L3-L4 and the L4-L5 levels. There was | | an inflammatorytissue at the epidural space of the L3-L4 and L4-L5 space. We got | | thespecimen for culture and the pathology and also we got the culture swab.Then, after | | irrigation with the bacitracin solution, we did the hemostasisand then we closed the | | muscle and the fascia with 0 Vicryl, subcutaneoustissue with 3-0 Vicryl, and the skin | | was reapproximated with 4-0 Caprosyn.There was no complication. The patient tolerated | | the procedure well andwas taken to the Recovery Room.Mc Arnold M.D.Maria C Vences, | | PIPE / [id number] / [id number] / [id number] / [id number]: 11/25/2003T: 11/26/2003 | | | |Indications: | |As per dictated by Dr. Vences. | | | |Procedure: | |The patient was properly identified and taken to the Operating Room. He | |was put under general anesthesia, and venous lines were placed. He was | |then put in the prone position over the Elie frame. After sterile | |prepping and draping, the midline skin incision was done from the L2 | |spinous process to L5 spinous process and then the subcutaneous tissue was | |dissected down to the fascia. Fascia was opened bilaterally in the | |midline, and then the paravertebral muscles were dissected subperiosteally | |from the L3 and L4 lamina. After confirmation of the L4 lamina by using a | |portable x-ray, we did the total laminectomy to the L3 and L4 by using | |Adson rongeur and Kerrison rongeur, #3 and #4 and then we did wide | |foraminotomy at the L3-L4 and the L4-L5 levels. There was an inflammatory | |tissue at the epidural space of the L3-L4 and L4-L5 space. We got the | |specimen for culture and the pathology and also we got the culture swab. | |Then, after irrigation with the bacitracin solution, we did the hemostasis | |and then we closed the muscle and the fascia with 0 Vicryl, subcutaneous | |tissue with 3-0 Vicryl, and the skin was reapproximated with 4-0 Caprosyn. | |There was no complication. The patient tolerated the procedure well and | |was taken to the Recovery Room. | | | | | | | | | |Mc Arnold M.D. | | | | | | | |Maria C Vences M.D. | | | |AD / HS | |[id number] / [id number] / [id number] / [id number] | | | | | + + documented in this encounter Visit Diagnoses Not on filedocumented in this encounter"
--- OUTSIDE RECORDS SUMMARY | ~2020-06-20 | XMS | Encounter Summary ---
Demographics + + + | Address | [address] | | | [place] [address] | + + + | Home Phone [...] Author + + + | Author | [facility] | + + + | Organization | [facility] | + + + | Address | Unknown | + + + | Phone | Unavailable | + + + Support + + +---------+ + | Name | Relationship | Address | Phone | + + +---------+ + | Elizabeth Damico | ECON | Unknown | | + + +---------+ + Care Team Providers + +------+ + | Care Beamer Hand Name | Role | Phone | + [...] W | | | | ON | [facility] 4th Floor [address] | [facility] | | | | | [address] | Road [place], [place] | | | | | Mailcode: [facility] | [address] | | | | | [facility] | | | | | | and Healing, | | | | | | Building 1,4th Floor | | | | | | [place], [place] | | | | | | [address] | | | | | | [phone] | | | +--------+ + + + [...]
--- OUTSIDE RECORDS SUMMARY | ~2020-06-20 | XMS | Encounter Summary ---
Demographics + + + | Address | [address] | | | [place] [address] | + + + | Home Phone | | + + + | Preferred Language | Unknown | + + + | Marital Status | | + + + | Mandaen Affiliation | 1041 | + + + | Race | White | + + + | Ethnic Group | Not or | + + + Author + + + | Author | [facility] | | | and [place] | + + + | Organization | [facility] | | | [...] [place] | | | | | [address] | | + + + + + | Scot Damico | ECON | [address] | | | | | [place] [address] | | + + + + + Care Team Providers + +------+ + | Care Truck Cleaner Name | Role | Phone | [...] | | | | | | [place] [address] | | | | | | [phone] | | | +--------+ + + + [...] | | | | | [place] [address] | | | | | | [phone] | | | | | | | [...] | | | [place] [address] | | | | | | [phone] | | | | | | | | +--------+ + + + + documented as of this encounter Visit Diagnoses + + | Diagnosis | + + | Cough - Primary | + + documented in this encounter"
--- OUTSIDE RECORDS SUMMARY | ~2020-06-20 | XMS | Encounter Summary ---
Demographics + + + | Address | [address] | | | [place] [address] | + + + | Home Phone | | + + + | Preferred Language | Unknown | + + + | Marital Status | | + + + | Denominational Affiliation | 1041 | + + + [...] [place] | | | | | [address] | | + + + + + | Scot Damico | ECON | [address] | | | | | [place] [address] | | + + + + + Care Team Providers + +------+ + | Care Contracting Engineer Name | Role | Phone | + +------+ + | Ralph Chatman MD | PCP | | + +------+ + Encounter Details +--------+ + + + + | Date | Type | Department | Care Team | Description | +--------+ + + + + | 01/26/ | Hospital | [facility] | Mio Hughes, | | | 2012 | Encounter | MED CTR XRAY [address] | MD [address] | | | | | [place] [address] | [address] [place], | | | | | [place] [address] | [place] [address] | | | | | [phone] | [phone] | | | | | | | [...] | | | | | [place] [address] | | | | | | [phone] | | | | | | | [...] | | | | | | [place] [address] | | | | | | [phone] | | | | | | | [...] Performed At | + + + | [facility] Diagnostic Imaging | [facility] | | Department [address] [place] [address] | [facility] | | [ rep [address]] [ rep [facility] | | st [facility]] Signed | - IMAGING | | | | | Patient Name: IRAIDA DAMICO Physician: | | | FERR.01 : 1935 Age: 77 Sex: M Unit #: [id number] | | | Exam Date: 01/26/13 [place] [facility] [place] | | | Report #: [id number] Page: | | | %(RAD)RES..mtdd.print.filter("pg") of %(RAD) | | | RES..mtdd.print.filter("tpg") | | | | | | Accession Number: [id number] | | | E C H O C A R D I O G R A P H Y R E P O R T | | | HEIGHT: 5'11" WEIGHT: 185# | | | AUTOMATED WEAVER: [place] REFERRING DR: WILLIAM MARTINEZ DR: | [...] Transcribed Date/Time: 01/26/2013 | | | 18:53 Water Tester: <<Signature | | | on File>> | | | Suwong | | | MD Jenny [facility] FAS01/27/13 1304 <Electronically signed by | | | Mirna Alvarado MD, [facility], [facility], [facility], [facility]> Beenaong | | | MD Jenny [facility] 01/26/13 3582 Water Tester: [employer] | | | [id number]/22/13 2016 Mio Hughes MD | | | | | + + + + + + + + | Performing | Address | City/State/Zipcode | Phone Number | | Organization | | | | + + + + + | [facility] | [address] | [place] | [phone] | | [facility] | | [address] | | | - IMAGING | | | | + + + + + documented in this encounter Visit Diagnoses Not on filedocumented in this encounter
--- OUTSIDE RECORDS SUMMARY | ~2020-06-20 | XMS | Encounter Summary ---
Demographics + + + | Address | [address] | | | [place] [address] | + + + | Home Phone | | + + + | Preferred Language | Unknown | + + + | Marital Status | | + + + | Christianity Affiliation | 1041 | + + + | Race | White | + + + | Ethnic Group | Not or | + + + Author + + + | Author | [facility] | | | and [place] | + + + | Organization | [facility] | | [...] [place] | | | | | [address] | | + + + + + | Scot Damico | ECON | [address] | | | | | [place] [address] | | + + + + + Care Team Providers + +------+ + | Care Agricultural Economist Name | Role | Phone | + [...] | | [facility] [address] [place] | Dx) | | | [address] | [address] | | | | | [place] | | | | | | [address] | | | | | | [phone] | | | +--------+---------+ + + + [...] might be different f rom the original. [facility] CARDIACTHORACIC SURGERY OUTPATIENT POST-OP VISIT Pt. Name/Age/: Iraida Damico 78 y.o. 1935 Med. Record Number: [id number] Date of Service: 08/20/2013 Procedure: Aortic Valve [...] 08/20/2013 13:00 Marylin Munoz PA-c Cardiothoracic Surgery [facility] [address] [place] [address] documented in this encounter Plan of Treatment +--------+ + + + + | Date | Type | Specialty | Care Team | Description | +--------+ + + + + | 06/23/ | Office | Cardiology | Rowdy Haines | | | 2019 | Visit | | Jamarcus, MD [address] | | | | | | [place] | | | | | | [place] [address] | | | | | | [phone] | | | | | | | [...] | | | | | | [place] [address] | | | | | | [phone] | | | | | | | | +--------+ + + + + documented as of this encounter Visit Diagnoses + + | Diagnosis | + + | S/P aortic valve replacement - Primary Heart valve replaced by other means | + + documented in this encounter"
--- OUTSIDE RECORDS SUMMARY | ~2020-06-20 | XMS | Encounter Summary ---
Demographics + + + | Address | [address] | | | [place] [address] | + + + | Home Phone | | + + + | Preferred Language | Unknown | + + + | Marital Status | | + + + | Synagogue Affiliation | 1041 | + + + | Race | White | + + + | Ethnic Group | Not or | + + + Author + + + | Author | [facility] | | | and [place] | + + + | Organization | [facility] | | [...] [place] | | | | | [address] | | + + + + + | Scot Damico | ECON | [address] | | | | | [place] [address] | | + + + + + Care Team Providers + +------+ + | Care Radiology Director Name | Role | Phone | + +------+ + | Ralph Chatman MD | PCP | | + +------+ + Encounter Details +--------+ + + + + | Date | Type | Department | Care Team | Description | +--------+ + + + + | 08/21/ | Emergency | [facility] | Olaf Cook DO | Elevated blood | | 2016 - | | MEDICAL CENTER | [address] | pressure; Skin tear | | | | EMERGENCY [place] | [place], [place] | of forearm without | | 08/22/ | | [address] | [address] | complication, left, | | 2016 | | [place] | [phone] | initial encounter | | | | [address] | | | | | | [phone] | | | +--------+ + + + [...] tablet by | 20 | 0 | 20 | | | HYDROcodone-acetamin | mouth every [...] + + documented as of this encounter ED Notes Conversion Transaction, Provider Unknown - 08/21/2016 10:50 PM PSTFormatting of this note m ight be different from the original. ED Notes by Prem Díaz RN at 08/21/162249 Author: Prem Díaz RN Service: (none) Author Type: Registered Nurse Filed: 08/21/162329 Date of Service: 08/21/162249 Status: Signed Tile Grader: Prem Díaz RN (Registered Nurse) Pt reports the the wind was blowing when he opened his cars trunk lid. When he went to put his luggage into the trunk the lid came down heavly down on his left arm. Prem Díaz RN 08/21/162329 Isidro Pena ARNP - 08/21/2016 10:46 PM PST ED Provider Notes by AYDIN Anderson at 08/21/162245 Author: AYDIN Anderson Service: Emergency Department Author Type: Advanced [place] ed Nurse Practitioner Filed: 08/21/162355 Date of Service: 08/21/162245 Status: Attested Tile Grader: AYDIN Anderson (Advanced Registered Nurse Practitioner) Cosigner: Olaf caicedo DO at 08/22/16605 Attestation signed by Olaf Cook DO at 08/22/16605 I have reviewed the note and supervised the mid-level provider. Procedures [facility] [place] History of Present Illness Patient Identification Celena Damico is a 81 y.o. male. Patient information was obtained from patient. History/Exam limitations: none. Patient presented to the Emergency Department Car Chief Complaint Chief Complaint Patient presents with Arm Injury left 81-year-old male accompanied by his presents to the emergency department for left arm skin tear. He was getting luggage out of the back of his car and the hatchback fell on his l eft arm. Pain is 2/10, achy, and constant. Patient took some Tylenol prior to accident for a rthritis but otherwise Pt had no care or medication prior to arrival. Past Medical History Diagnosis Date COPD (chronic obstructive pulmonary disease) (HCC) Past Surgical History Procedure Laterality Date Aortic valve replacement Replacement total knee Right Back surgery Pacemaker insertion Prior to Admission medications Medication Sig Start Date End Date Taking? Authorizing Provider acetaminophen (TYLENOL) 500 MG tablet Take 500 mg by mouth every 6 (six) hours as needed fo r Pain. Yes Historical Provider No Known Allergies Social History Social History Marital Status: Spouse Name: N/A Number of Children: N/A Years of Education: N/A Occupational History Not on file. Social History Main Topics Smoking status: Never Smoker Smokeless tobacco: Never Used Alcohol Use: Yes Comment: weekly Drug Use: No Sexual Activity: Not on file Other Topics Concern Not on file Social History Narrative No narrative on file No family history on file. ROS Review of Systems Review of Systems Constitutional: Negative for fever, chills and diaphoresis. HENT: Negative for congestion, ear discharge, ear pain and sore throat. Eyes: Negative. Respiratory: Negative. Cardiovascular: Negative. Gastrointestinal: Negative. Genitourinary: Negative. Musculoskeletal: Negative. Negative for myalgias, back pain, joint pain, falls and neck pa in. Left arm pain and swelling Skin: Negative. Left arm skin tear Neurological: Negative. Negative for weakness. Endo/Heme/Allergies: Negative. Psychiatric/Behavioral: Negative. Physical Exam BP 202/104 mmHg | Pulse 80 | Temp(Src) 97 F (36.1 C) | Resp 16 | Wt 83.915 kg (185 lb) | SpO2 100% Pulse Oximetry Interpretation: Normal Physical Exam Constitutional: He is oriented to person, place, and time. He appears well-developed and we ll-nourished. No distress. HENT: Head: Normocephalic and atraumatic. Right Ear: External ear normal. Left Ear: External ear normal. Eyes: Conjunctivae and EOM are normal. Pupils are equal, round, and reactive to light. Neck: Normal range of motion. Neck supple. Cardiovascular: Normal rate, regular rhythm, normal heart sounds and intact distal pulses. Pulmonary/Chest: Effort normal and breath sounds normal. No respiratory distress. He has no wheezes. He exhibits no tenderness. Abdomina/Gl: Soft. Bowel sounds are normal. He exhibits no distension. There is no tenderne ss. There is no rebound and no guarding. Musculoskeletal: Normal range of motion. Left forearm: He exhibits tenderness, swelling and edema. He exhibits no bony tenderne ss, no deformity and no laceration. Arms: Neurological: He is alert and oriented to person, place, and time. Skin: Skin is warm and dry. He is not diaphoretic. Psychiatric: He has a normal mood and affect. His behavior is normal. Judgment and thought content normal. Nursing note and vitals reviewed. ED Course Medical Decision Making and Emergency Department Course ED Department Course 2235:81-year-old male completed by his presents to the emergency department for left a rm skin tear. 2237:Examined the Pt and considered differential of fracture, dislocation, and soft tissue injury. I will order imaging and reevaluate after results are read and returned. I will harvinder ge pain with Tylenol and tramadol. X-ray forearm resulted. 1. No evidence of fracture. 2. Laceration and soft tissue swelling seen in the mid forearm along the radial aspect co nsistent with the site of injury. 2342:Pt is afebrile and in no acute distress. Pt given ED precautions and recommended to re turn if symptoms persist or worsen. Patient acknowledged understanding and accepts plan. Pat ient is appropriate for discharge and to follow up with PCP for wound check in one week. Records Reviewed Old medical records. Labs & Radiology Results Laboratory Evaluation Results None Radiology and EKG Evaluation Imaging Results XR Radius Ulna Left AP and Lateral (Final result) Result time: 08/21/16 23:24:58 Final result by Rad Results In Jorje (08/21/16 23:24:58) Impression: 1. No evidence of fracture. 2. Laceration and soft tissue swelling seen in the mid forearm along the radial aspect con sistent with the site of injury. Narrative: CELENA DAMICO XR FOREARM LEFT 08/21/2016 10:59 PM HISTORY: 81 years. Male. Cardiac valve on left mid forearm resulting in laceration and bruising. Assess for fracture or foreign body. TECHNIQUE: XR FOREARM LEFT. 2 view(s) obtained. COMPARISON: None FINDINGS: The regional osseous structures demonstrate normal mineralization and trabeculation. No fracture, dislocation or subluxation is noted. The joint spaces appear normal. Mild soft tissue swelling and laceration is seen in the mid forearm along the radial aspect and dorsal aspect consistent with the site of injury. No radiopaque foreign bodies are noted. No soft tissue calcifications are present. Diagnosis & Disposition ED Diagnoses Final diagnoses Elevated blood pressure Skin tear of forearm without complication, left, initial encounter Disposition: ED Disposition Discharge Condition at discharge: Stable Follow-up Information Follow up With Details Comments Contact Info Arturo Chatman MD Schedule an appointment as soon as possible for a visit in 1 week For christopher robins re-check [address] [facility] [address] [place] [address] [facility] Department in [place] If symptoms worsen [address] [facility] [id number] Discharge Medications: New Prescriptions ACETAMINOPHEN (TYLENOL) 500 MG TABLET Take 2 tablets by mouth every 6 (six) hours as ne eded for Pain or Fever. Do not take more than 8 in a 24 hour period TRAMADOL (ULTRAM) 50 MG TABLET Take 1 tablet by mouth every 6 (six) hours as needed for Pain. Do not exceed 8 in a 24 hour period AYDIN Anderson 08/21/16 3966 Olaf Cook, DO 08/22/16 0606 documented in this encounter Plan of Treatment [...] | | | | | | [place] [address] | | | | | | [phone] | | | | | | | | +--------+ + + + + | 06/23/ | Procedure | Cardiology | | | | 2019 | visit | | | | +--------+ + + + + | 07/06/ | Office | Neurology | Dada Goodwin, | | | 2019 | Visit | | MD Gabriel SELLERS | | | | | | [place] | | | | | | [place] [address] | | | | | | [phone] | | | | | | | [...] Performed At | + + + | CELENA DAMICO XR FOREARM LEFT 08/21/2016 10:59 PM [...] Recinos Conversion - 05/21/2019 2:21 PM PDT CELENA DAMICOXR FOREARM LEFT08/21/2016 | | 10:59 PM [...]
--- OUTSIDE RECORDS SUMMARY | ~2020-06-20 | XMS | Clinical Summary ---
Demographics + + + | Address | [address] | | | [place] [address] | + + + | Home Phone [...] [place] | | | | | [address] | | + + + + + | Scot Damico | ECON | [address] | | | | | [place] [address] | | + + + + + Care Team Providers + +------+ + | Care Seismic Computer Name | Role | Phone | + [...] 2 times daily. | capsule | | 02/23 | | e | | capsule | | | | 16 | | | + + +---------+---+------+---+-------+ +---+ + | | Additional | | | InformationPatient | | | not taking. Reported | | | on 05/02/2020 8:39 | | | AM | +---+ + + +---+---+---+------+---+-------+ | | | | 0 | 05/1 | | Activ | | hydroCHLOROthiazide | | | | 0/20 | | e | | (MICROZIDE) 12.5 MG | | | | 19 | | | | capsule | | | | | | | + +---+---+---+------+---+-------+ | tamsulosin | | | 0 | 12/1 | | Activ | | (FLOMAX) 0.4 mg CAPS | | | | 7/20 | | e | | | | | | 19 | | | + +---+---+---+------+---+-------+ | finasteride | | | 0 | 02/1 | | Activ | | (PROSCAR) 5 mg | | | | 3/20 | | e | | tablet | | | | 20 | | | + +---+---+---+------+---+-------+ Active Problems + + + | Problem [...] 4 | + + + + Encounters +--------+ + + + + | Date | Type | Specialty | Care Team | Description | +--------+ + + + + | 06/16/ | Telephone | Neurology | Dada Goodwin, | Imaging (orders ) | 2019 | | | | | +--------+ + + + + | 05/11/ | Telephone | Cardiology | Rowdy Haines | Appointment | 2019 | | | MD Jamarcus | | +--------+ + + + + | 05/04/ | Telephone | Cardiology | Rowdy Haines | Appointment | 2019 | | | MD Jamarcus | | +--------+ + + + + | 05/03/ | Documentati | Neurology | Dada Goodwin, | Results ([facility] | 2019 | on | | | lab) | +--------+ + + + + | 05/02/ | Office | Neurology | DanielcaDada jeff, | Weakness (Primary | 2019 | Visit | | MD | Dx); Falls | | | | | | infrequently; | | | | | | Neuropathy; | | | | | | Orthostatic | | | | | | lightheadedness | +--------+ + + + + | 04/29/ | Telephone | Neurology | Dada Goodwin, | Appointment (05/02 | | 2019 | | | MD | later time appt | | | | | | request) | +--------+ + + + + from Last 3 Months [...] on file | | + + + Last Filed Vital Signs + [...] + + + + Plan of Treatment +--------+ + + + + | Date | Type | Specialty | Care Team | Description | +--------+ + + + + | 06/23/ | Office | Cardiology | Rowdy Haines | | | 2019 | Visit | | MD Gabriel Ricketts | | | | | | [place] | | | | | | [place] [address] | | | | | | [phone] | | | | | | | [...] | | | [place] [address] | | | | | | [phone] | | | | | | | | +--------+ + + + + + + + + + | Health Maintenance | Due Date | Last | Comments | | | | Done | | + + + + + | Med Mgmt: Vit D | | | | | | 5 | | | + + + + + | Medication | | | | | Management | 5 | | | + + + + + | Vaccine: | | 11/21/19 | | | Dtap/Tdap/Td (1 - | 4 | 00 | | | Tdap) | | | | + + + + + | Med Mgmt: Cr | | 01/18/20 | | | | 7 | 16, | | | | | 06/28/20 | | | | | 15, | | | | | 07/11/20 | | | | | 13, | | | | | Addition | | | | | al | | | | | history | | | | | exists | | + + + + + | Med Mgmt: K | | 01/18/20 | | | | 7 | 16, | | | | | 07/11/20 | | | | | 13, | | | | | 07/10/20 | | | | | 13, | | | | | Addition | | | | | al | | | | | history | | | | | exists | | + + + + + | Med Mgmt: Na | | 01/18/20 | | | | 7 | 16, | | | | | 06/28/20 | | | | | 15, | | | | | 07/11/20 | | | | | 13, | | | | | Addition | | | | | al | | | | | history | | | | | exists | | + + + + + | Adult Annual | | | | | Wellness Visit | 9 | | | + + + + + | Vaccine: Influenza | | 07/30/20 | | | (#1) | 0 | 19, | | | | | 06/26/20 | | | | | 18, | | | | | 11/27/19 | | | | | 18, | | | | | Addition | | | | | al | | | | | history | | | | | exists | | + + + + + | Vaccine: | Completed | 07/07/20 | | | Pneumococcal 65+ | | 15, | | | | | 10/07/19 | | | | | 10 | | + + + + + | Vaccine: Zoster | Completed | 12/01/19 | | | | | 20, | | | | | 08/15/20 | | | | | 19, | | | | | 07/07/20 | | | | | 12, | | | | | Addition | | | | | al | | | | | history | | | | | exists [...] - | | | [id number] | | [id number]: Qty: 1 on | | Heart | MEDT | | | [id number] | | 01/19/2016 by Nghia, | | | | | | [id number] | | Jude Jeff MD at [facility] | | | | | | / | | [facility] | | | | | | | + +------+-------+ +--------+--------+--------+ + + | Description:RIGHT VENTRICULAR | | LEAD | + + + +------+-------+ +---+---+--------+ | Lead Capsurefix Novus 5076 - | Lead | N/A: | [employer] - | | | 5076 | | [id number]: Qty: 1 on | | Heart | MEDT | | | /[id number] | | 01/19/2016 by Nghia, | | | | | | [id number] | | Jude Jeff MD at [facility] | | | | | | / | | [facility] | | | | | | | + +------+-------+ +---+---+--------+ + + | Description:RIGHT ATRIAL LEAD | + + + +--------+--------+ +---+---+--------+ | Pacer Usama Darden Dev - | Pacema | Left: | [employer] - | | | [id number] | | [id number]: Qty: 1 on | ker | Chest | MEDT | | | / / | | 01/19/2016 by Nghia, | | | | | | | | Jude Jeff MD at [facility] | | | | | | | | [facility] | | | | | [...] +--------+ +---------+--------+ | MEDICARE | MEDICA | [id number] | 04/06/20 | [phone] | | Medica | | | RE | | 00-Pre | 5 | | re | | | PART A | | sent | | | | | | AND B | | | | | | + +--------+ +--------+ +---------+--------+ | INDIVIDUAL ASSURANCE | INDIVI | [id number] | 10/07/19 | | | Indemn | [...] +--------+ +---------+--------+ | MEDICARE | MEDICA | [id number] | 04/06/20 | [phone] | | Medica | | | RE | | 00-Pre | 5 | | re | | | PART A | | sent | | | | | | AND B | | | | | | + +--------+ +--------+ +---------+--------+ | EQUITABLE INSURANCE | EQUITA | [id number] | 06/07/20 | [phone] | | Indemn [...] | [address] | | Steve | al/Fam | | 1935 | [phone] | [place] | | | isa | | | 8 (Home) | [address] | + +--------+ +--------+ + + | Iraida Damico | Person | Self | [birth year] | | [address] | | Steve | al/Fam | | 1935 | [phone] | [place], [place] | | | isa | | | 8 (Home) | [address] | + +--------+ +--------+ + + | Iraida Damico | Person | Self | [birth year] | | [address] | | Steve | al/Fam | | 1935 | [phone] | [place], [place] | | | isa | | | 8 (Home) | [address] | + +--------+ +--------+ + + | Iraida Damico | Person | Self | [birth year]30/ | | [address] | | Steve | al/Fam | | 1935 | [phone] | [place], [place] | | | isa | | | 8 (Home) | [address] | + +--------+ +--------+ + + Advance Directives + + + + + | Type | Date Recorded | Patient | Explanation | | | | Internet E Commerce Specialist | | + + + + + | Power of | | | | | Railroad Crossing Protection Maintainer | | | | + + + + + | Advance | 01/18/2016 9:10 | | | | Directive | AM | | | + + + + +
--- OUTSIDE RECORDS SUMMARY | ~2020-06-20 | XMS | Encounter Summary ---
Demographics + + + | Address | [address] | | | [place] [address] | + + + | Home Phone | | + + + | Preferred Language | Unknown | + + + | Marital Status | | + + + | Voodoo Affiliation | [id number] | + + + | Race | White | + + + | Ethnic Group | Not or | + + + Author + + + | Author | [facility] | | | and [place] | + + + | Organization | [facility] | | | [...] [place] | | | | | [address] | | + + + + + | Scot Damico | ECON | [address] | | | | | [place] [address] | | + + + + + Care Team Providers + +------+ + | Care Application Engineer Name | Role | Phone | + +------+ + PCP | Unavailable | + +------+ + Encounter Details +--------+ + + + + | Date | Type | Department | Care Team | Description | +--------+ + + + + | 11/05/ | Hospital | [facility] | | | | 1995 | Encounter | MED CTR XRAY [address] | | | | | | [place] | | | | | | [place] [address] | | | | | | [phone] | | | +--------+ + + + [...] | | | | | [place] [address] | | | | | | [phone] | | | | | | | [...] | | | [place] [address] | | | | | | [phone] | | | | | | | | +--------+ + + + + documented as of this encounter Visit Diagnoses Not on filedocumented in this encounter"
--- OUTSIDE RECORDS SUMMARY | ~2020-06-20 | XMS | Encounter Summary ---
Demographics + + + | Address | [address] | | | [place] [address] | + + + | Home Phone [...] [place] | | | | | [address] | | + + + + + | Scot Damico | ECON | [address] | | | | | [place] [address] | | + + + + + Care Team Providers + +------+ + | Care Base Wad Operator Adjuster Name | Role | Phone | + +------+ + | Ralph Chatman MD | PCP | | + +------+ + Encounter Details +--------+ + + + + | Date | Type | Department | Care Team | Description | +--------+ + + + + | 07/16/ | Orders Only | [facility] | Milvia Snyder | | | 2017 | | CONVERSION 888 | MD [address] | | | | | [place] | [place] | | | | | [place] | [place] | | | | | [address] | [address] | | | | | [phone] | [phone] | | | | | | | [...] [place] | | | | | | [place] [address] | | | | | | [phone] | | | | | | | [...] D | | | | | | [place] [address] | | | | | | [phone] | | | | | | | | +--------+ + + + + documented as of this encounter Procedures + +--------+ + + + | Procedure Name | Priori | Date/Time | Associated Diagnosis | Comments | | | ty | | | | + +--------+ + + + | ECHO INTERPRETATION | Routin | 07/16/2018 | | Results for this | | OF OUTSIDE FILMS | e | 2:01 PM | | procedure are in the | | | | PDT | | results section. | + +--------+ + + + documented in this encounter Results ECHO Interpretation of Outside Films (07/16/2018 2:01 PM PDT) + + | Specimen | + + | | + + + + + | Impressions | Performed At | + + + | 1. The left ventricle is mildly dilated, low normal systolic | | | function EF 50%. 2. The right ventricle is normal in size and | | | function. 3. 27 mm [employer] Gonzalez II porcine Aortic valve is well | | | seated with normal function. 4. Moderate tricuspid regurgitation | | | present. 5. There is no pericardial effusion. 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 The left ventricle is | | | mildly dilated, low normal systolic function EF 50%. 2. The right | | | ventricle is normal in size and function. 3. 27 mm [employer] Gonzalez | | | II porcine Aortic valve is well seated with normal function. 4. | | | Moderate tricuspid regurgitation present. 5. There is no pericardial | | | effusion. FINDINGS -------- ECG rhythm: Paced rhythm with | | | irregular beats. Study: A 2-dimensional transthoracic echocardiogram | | | with m-mode, spectral and color flow Doppler was perfomed. Study: | | | This was a technically adequate study. Left Ventricle: Overall left | | | ventricular systolic function is low-normal with, an EF between 50%. | | | Left Ventricle: The left ventricle is mildly dilated. Left Ventricle: | | | Left ventricular wall thickness is normal. Left Ventricle: There is | | | paradoxical/dysynergic septal motion consistent with RV pacing. Left | | | Ventricle: Pseudonormal LV diastolic filling pattern, consistent with | | | elevated LA pressure and moderate dysfunction (Grade II). Right | | | Ventricle: The right ventricle is normal in size and function. Right | | | Ventricle: Pacer/ICD wire seen. Left Atrium: The left atrium is | | | mildly enlarged. Right Atrium: The right atrium is mildly enlarged. | | | Right Atrium: Pacemaker wire seen in the right atrial cavity. Aortic | | | Valve: There is no evidence of aortic regurgitation. Aortic Valve: | | | Peak/mean gradient across the valve is 26.27mmHg/15.99mmHg. Aortic | | | Valve: 27 mm [employer] Gonzalez II porcine Aortic valve is well seated. | | | Mitral Valve: The mitral valve is normal. Mitral Valve: Mild mitral | | | regurgitation is present. Tricuspid Valve: The tricuspid valve | | | appears structurally normal. Tricuspid Valve: Moderate tricuspid | | | regurgitation present. Tricuspid Valve: There is no evidence of | | | pulmonary hypertension. Tricuspid Valve: The right ventricular | | | systolic pressure (pulmonary artery systolic pressure), as measured by | | | Doppler, is 32.36mmHg. Pulmonic Valve: The pulmonic valve is normal. | | | Pulmonic Valve: Mild pulmonic regurgitation. Pericardium: There is | | | no pericardial effusion. Pericardium: No pleural effusion seen. | | | IVC/Hepatic Veins: The IVC is normal size (1.5-2.5cm) and collapses | | | >50% with sniff, consistent with central venous pressures of 5-10mmHg. | | | Aorta: Aortic arch not imaged. Septum: Mobile interatrial septum. | | | MEASUREMENTS Ao asc: 3.17 cm Ao Diam: 3.68 | | | cm Ao st junct: 3.21 cm IVC: 2.02 cm LA Diam: 4.25 cm LA | | | Major: 5.42 cm EDV(Teich): 170.74 ml IVSd: 1.09 cm LVIDd: | | | 5.86 cm LVPWd: 1.03 cm LVOT Area: 5.53 cm2 LVOT Diam: | | | 2.65 cm %FS: 19.07 % EF(Teich): 38.71 % ESV(Teich): 104.64 | | | ml LVIDs: 4.74 cm SV(Teich): 66.10 ml RA Major: 5.35 cm | | | RV Major: 7.28 cm RVIDd: 2.35 cm TV Rachel Diam: 3.55 cm Ao | | | Root: 3.30 cm Ao Diam SVals: 3.67 cm LVEF MOD A2C: 44.30 % | | | SV MOD A2C: 54.91 ml LVEF MOD A4C: 41.76 % SV MOD A4C: | | | 69.45 ml EF Biplane: 43.91 % LVEDV MOD BP: 147.30 ml LVESV | | | MOD BP: 82.61 ml LVEDV MOD A2C: 123.95 ml LVLd A2C: 8.89 cm | | | LVEDV MOD A4C: 166.28 ml LVLd A4C: 9.41 cm LVESV MOD A2C: | | | 69.04 ml LVLs A2C: 7.88 cm LVESV MOD A4C: 96.83 ml LVLs A4C: | | | 8.06 cm LAESV(A-L): 70.10 ml LAESV Index (A-L): 37.09 | | | ml/m2 LAAs A2C: 19.60 cm2 LAESV A-L A2C: 57.63 ml LALs A2C: | | | 5.66 cm LAAs A4C: 23.43 cm2 LAESV A-L A4C: 83.79 ml LALs | | | A4C: 5.56 cm RAAs: 20.90 cm2 RAESV A-L: 65.61 ml RAESV | | | MOD: 62.32 ml RALs: 5.65 cm TAPSE: 2.05 cm AV maxPG: | | | 26.27 mmHg AV meanP.99 mmHg AV Vmax: 2.56 m/s AV Vmean: | | | 1.91 m/s AV VTI: 50.23 cm LUISITO Vmax: 1.42 cm2 LUISITO (VTI): | | | 1.38 cm2 LVOT maxP.74 mmHg LVOT meanP.93 mmHg LVSI | | | Dopp: 36.70 ml/m2 LVSV Dopp: 69.36 ml LVOT Vmax: 0.66 m/s | | | LVOT Vmean: 0.45 m/s LVOT VTI: 12.52 cm MV A William: 0.03 m/s | | | MV Dec Neosho: 5.81 m/s2 MV DecT: 167.95 ms MV E William: 0.97 | | | m/s MV E/A Ratio: 28.85 MV PHT: 48.70 ms MVA By PHT: 4.51 | | | cm2 Septal e': 0.09 m/s Septal E/e': 10.75 RAP: 5 mmHg | | | RVSP: 32.36 mmHg TR maxP.36 mmHg TR Vmax: 2.61 m/s | | | Radio Equipment Installer: AUSTYN Authenticated by: Boogie Wang Report | | | Date/Time: 07-17-2018 18:24:47 | | + + + + + | Procedure Note | + + | [facility] Recinos Conversion - 05/28/2019 4:31 PM PDT Patient Name: Myron Damico of | | : 1935 Performing Physician: Boogie | | Kathleen INDICATIONS------ | | -----CHF, 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 The | | left ventricle is mildly dilated, low normal systolic function EF 50%.2. The right | | ventricle is normal in size and function.3. 27 mm [employer] Gonzalez II porcine Aortic | | valve is well seated with normal function.4. Moderate tricuspid regurgitation present.5. | | There is no pericardial effusion. FINDINGS--------ECG rhythm: Paced rhythm with | | irregular beats.Study: A 2-dimensional transthoracic echocardiogram with m-mode, | | spectral and color flow Doppler was perfomed.Study: This was a technically adequate | | study.Left Ventricle: Overall left ventricular systolic function is low-normal with, an | | EF between 50%.Left Ventricle: The left ventricle is mildly dilated.Left Ventricle: Left | | ventricular wall thickness is normal.Left Ventricle: There is paradoxical/dysynergic | | septal motion consistent with RV pacing.Left Ventricle: Pseudonormal LV diastolic | | filling pattern, consistent with elevated LA pressure and moderate dysfunction (Grade | | II).Right Ventricle: The right ventricle is normal in size and function.Right Ventricle: | | Pacer/ICD wire seen.Left Atrium: The left atrium is mildly enlarged.Right Atrium: The | | right atrium is mildly enlarged.Right Atrium: Pacemaker wire seen in the right atrial | | cavity.Aortic Valve: There is no evidence of aortic regurgitation.Aortic Valve: | | Peak/mean gradient across the valve is 26.27mmHg/15.99mmHg.Aortic Valve: 27 mm [employer] | | Gonzalez II porcine Aortic valve is well seated.Mitral Valve: The mitral valve is | | normal.Mitral Valve: Mild mitral regurgitation is present.Tricuspid Valve: The tricuspid | | valve appears structurally normal.Tricuspid Valve: Moderate tricuspid regurgitation | | present.Tricuspid Valve: There is no evidence of pulmonary hypertension.Tricuspid Valve: | | The right ventricular systolic pressure (pulmonary artery systolic pressure), as | | measured by Doppler, is 32.36mmHg.Pulmonic Valve: The pulmonic valve is normal.Pulmonic | | Valve: Mild pulmonic regurgitation.Pericardium: There is no pericardial | | effusion.Pericardium: No pleural effusion seen.IVC/Hepatic Veins: The IVC is normal size | | (1.5-2.5cm) and collapses >50% with sniff, consistent with central venous pressures of | | 5-10mmHg.Aorta: Aortic arch not imaged.Septum: Mobile interatrial septum. | | MEASUREMENTS Ao asc: 3.17 cmAo Diam: 3.[address] junct: 3.21 cmIVC: | | 2.02 cmLA Diam: 4.25 cmLA Major: 5.42 cmEDV(Teich): 170.74 mlIVSd: 1.09 | | cmLVIDd: 5.86 cmLVPWd: 1.03 cmLVOT Area: 5.53 [id number] Diam: 2.65 cm%FS: 19.07 | | %EF(Teich): 38.71 %ESV(Teich): 104.64 mlLVIDs: 4.74 cmSV(Teich): 66.10 mlRA | | Major: 5.35 cmRV Major: 7.28 cmRVIDd: 2.35 cmTV Rachel Diam: 3.55 cmAo Root: 3.30 | | cmAo Diam SVals: 3.67 cmLVEF MOD A2C: 44.30 %SV MOD A2C: 54.91 mlLVEF MOD A4C: | | 41.76 %SV MOD A4C: 69.45 mlEF Biplane: 43.91 %LVEDV MOD BP: 147.30 mlLVESV MOD BP: | | 82.61 mlLVEDV MOD A2C: 123.95 mlLVLd A2C: 8.89 cmLVEDV MOD A4C: 166.28 mlLVLd | | A4C: 9.41 cmLVESV MOD A2C: 69.04 mlLVLs A2C: 7.88 cmLVESV MOD A4C: 96.83 mlLVLs | | A4C: 8.06 cmLAESV(A-L): 70.10 mlLAESV Index (A-L): 37.09 ml/m2LAAs A2C: 19.60 | | [id number] A-L A2C: 57.63 mlLALs A2C: 5.66 cmLAAs A4C: 23.43 [id number] A-L A4C: | | 83.79 mlLALs A4C: 5.56 cmRAAs: 20.90 [id number] A-L: 65.61 mlRAESV MOD: 62.32 | | mlRALs: 5.65 cmTAPSE: 2.05 cmAV maxP.27 mmHgAV meanP.99 mmHgAV Vmax: | | 2.56 m/Nikki Vmean: 1.91 m/Nikki VTI: 50.23 cmAVA Vmax: 1.42 cm2AVA (VTI): 1.38 | | [id number] maxP.74 mmHgLVOT meanP.93 mmHgLVSI Dopp: 36.70 ml/m2LVSV Dopp: | | 69.36 mlLVOT Vmax: 0.66 m/sLVOT Vmean: 0.45 m/sLVOT VTI: 12.52 cmMV A William: 0.03 | | m/sMV Dec Neosho: 5.81 m/s2MV DecT: 167.95 msMV E William: 0.97 m/sMV E/A Ratio: | | 28.85MV PHT: 48.70 msMVA By PHT: 4.51 [id number] e': 0.09 m/sSeptal E/e': | | 10.75RAP: 5 mmHgRVSP: 32.36 mmHgTR maxP.36 mmHgTR Vmax: 2.61 m/s | | Radio Equipment Installer: DHAuthenticated by: Boogie [facility] Date/Time: 07-17-2018 18:24:47 | | IMPRESSION: 1. The left ventricle is mildly dilated, low normal systolic function EF | | 50%.2. The right ventricle is normal in size and function.3. 27 mm [employer] Gonzalez II | | porcine Aortic valve is well seated with normal function.4. Moderate tricuspid | | regurgitation present.5. There is no pericardial effusion. | |Ao asc: 3.17 cm | |Ao Diam: 3.68 cm | |Ao st junct: 3.21 cm | |IVC: 2.02 cm | |LA Diam: 4.25 cm | |LA Major: 5.42 cm | |EDV(Teich): 170.74 ml | |IVSd: 1.09 cm | |LVIDd: 5.86 cm | |LVPWd: 1.03 cm | |LVOT Area: 5.53 cm2 | |LVOT Diam: 2.65 cm | |%FS: 19.07 % | |EF(Teich): 38.71 % | |ESV(Teich): 104.64 ml | |LVIDs: 4.74 cm | |SV(Teich): 66.10 ml | |RA Major: 5.35 cm | |RV Major: 7.28 cm | |RVIDd: 2.35 cm | |TV Rachel Diam: 3.55 cm | |Ao Root: 3.30 cm | |Ao Diam SVals: 3.67 cm | |LVEF MOD A2C: 44.30 % | |SV MOD A2C: 54.91 ml | |LVEF MOD A4C: 41.76 % | |SV MOD A4C: 69.45 ml | |EF Biplane: 43.91 % | |LVEDV MOD BP: 147.30 ml | |LVESV MOD BP: 82.61 ml | |LVEDV MOD A2C: 123.95 ml | |LVLd A2C: 8.89 cm | |LVEDV MOD A4C: 166.28 ml | |LVLd A4C: 9.41 cm | |LVESV MOD A2C: 69.04 ml | |LVLs A2C: 7.88 cm | |LVESV MOD A4C: 96.83 ml | |LVLs A4C: 8.06 cm | |LAESV(A-L): 70.10 ml | |LAESV Index (A-L): 37.09 ml/m2 | |LAAs A2C: 19.60 cm2 | |LAESV A-L A2C: 57.63 ml | |LALs A2C: 5.66 cm | |LAAs A4C: 23.43 cm2 | |LAESV A-L A4C: 83.79 ml | |LALs A4C: 5.56 cm | |RAAs: 20.90 cm2 | |RAESV A-L: 65.61 ml | |RAESV MOD: 62.32 ml | |RALs: 5.65 cm | |TAPSE: 2.05 cm | |AV maxP.27 mmHg | |AV meanP.99 mmHg | |AV Vmax: 2.56 m/s | |AV Vmean: 1.91 m/s | |AV VTI: 50.23 cm | |LUISITO Vmax: 1.42 cm2 | |LUISITO (VTI): 1.38 cm2 | |LVOT maxP.74 mmHg | |LVOT meanP.93 mmHg | |LVSI Dopp: 36.70 ml/m2 | |LVSV Dopp: 69.36 ml | |LVOT Vmax: 0.66 m/s | |LVOT Vmean: 0.45 m/s | |LVOT VTI: 12.52 cm | |MV A William: 0.03 m/s | |MV Dec Neosho: 5.81 m/s2 | |MV DecT: 167.95 ms | |MV E William: 0.97 m/s | |MV E/A Ratio: 28.85 | |MV PHT: 48.70 ms | |MVA By PHT: 4.51 cm2 | |Septal e': 0.09 m/s | |Septal E/e': 10.75 | |RAP: 5 mmHg | |RVSP: 32.36 mmHg | |TR maxP.36 mmHg | |TR Vmax: 2.61 m/s | | | |Radio Equipment Installer: | |Authenticated by: Boogie Wang | |Report Date/Time: 07-17-2018 18:24:47 | | | |IMPRESSION: | |1. The left ventricle is mildly dilated, low normal systolic function EF 50%. | |2. The right ventricle is normal in size and function. | |3. 27 mm [employer] Gonzalez II porcine Aortic valve is well seated with normal function. | |4. Moderate tricuspid regurgitation present. | |5. There is no pericardial effusion. | + + documented in this encounter Visit Diagnoses Not on filedocumented in this encounter"
--- OUTSIDE RECORDS SUMMARY | ~2020-06-20 | XMS | Encounter Summary ---
Demographics + + + | Address | [address] | | | [place] [address] | + + + | Home Phone [...] + | Author | [facility] | | | and [place] | + + + | Organization | [facility] | | | and [...] [place] | | | | | [address] | | + + + + + | Scot Damico | ECON | [address] | | | | | [place] [address] | | + + + + + Care Team Providers + +------+ + | Care Steam Engineer Name | Role | Phone | [...] + + | 07/29/ | Office | [facility] | [place], | COPD (chronic | | 2013 | Visit | PULMONARY [address] | Irina Sofia MD | obstructive | | | | [place], | | pulmonary disease) | | | | [place] [address] | | ([facility]) (Primary Dx) | | | | [phone] | | | +--------+---------+ + + + [...] Do an overnight oxygen test through [facility]. Call the [facility] before yo u pick it up to make sure they have a box available. You will apple picking supervisor a box at the [facility]. Do the test on room air. 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 It shows fine emphysema, and some [...] made to ensure accuracy; however, inadvertent computerized model technician errors may be pre sent. Electronically signed [...] ROBERTS | | | | | | [place] [address] | | | | | | [phone] | | | | | | | [...] Monson | | | | | | [place] [address] | | | | | | [phone] | | | | | | | [...]
--- OUTSIDE RECORDS SUMMARY | ~2020-06-20 | XMS | Encounter Summary ---
Demographics + + + | Address | [address] | | | [place] [address] | + + + | Home Phone | | + + + | Preferred Language | Unknown | + + + | Marital Status | | + + + | Yarsanism Affiliation | 1041 | + + + | Race | White | + + + | Ethnic Group | Not or | + + + Author + + + | Author | [facility] | | | and [place] | + + + | Organization | [facility] | | | [...] [place] | | | | | [address] | | + + + + + | Scot Damico | ECON | [address] | | | | | [place] [address] | | + + + + + Care Team Providers + +------+ + | Care Pump Technician Name | Role | Phone | [...] + | 01/26/ | Office | [facility] | [place], | Panlobular emphysema | | 2016 | Visit | PULMONARY [address] | Irina Soifa MD | ([facility]) (Primary Dx); | | | | [place], | | Pulmonary nodules; | | | | [place] [address] | | Incomplete AV heart | | | | [phone] | | block; PANCHITO | | | [...] PM PDTFormatting of this note might be horacio nt from the original. Pulmonary Follow Up [...] to a mile, and he stops about chcf on a bridge and w atches the [...] Pneumonia 04/2013 several episodes, including as an Melanoma ([facility]) 2009, 2010 x 3; 2 in head region and left nipple COPD (chronic obstructive pulmonary disease) ([facility]) Cataract bilateral Acid reflux disease Arthritis neck [...] Laterality: N/A; Surgeon: Theo Garza MD; Location: [facility] Other surgical history N/A 01/18/2016 Procedure: EP STUDY POSS ABLATION ; Surgeon: Jude Agrawal MD; Location: [facility] Pacemaker placement N/A 01/19/2016 Procedure: PLACEMENT - PACEMAKER LEAD DUAL PATIENT WILL BE IN HOUSE; Surgeon: Jude Agrawal MD; Location: [facility] Social History: History Social History Marital [...] up: [facility] Has previously lived in: [place], [place], born in [place] Exposure to toxic chemicals: possibly as a [...] tablet Take 325 mg by mouth Daily. Ikbakgy-Fjntufgbylpfu-Irwprfrd (EXCEDRIN MIGRAINE PO) Take 1 tablet by [...] as needed for Congestion. Respiratory Therapy Supplies [facility] Res Med S9 auto CPAP 9 cm [...] made to ensure accuracy; however, inadvertent computerized stunt driver errors may be pre sent. documented in [...] | | | | | [place] [address] | | | | | | [phone] | | | | | | | [...] | | | [place] [address] | | | | | | [phone] | | | | | | | [...]
--- OUTSIDE RECORDS SUMMARY | ~2020-06-20 | XMS | Encounter Summary ---
Demographics + + + | Address | [address] | | | [place] [address] | + + + | Home Phone | | + + + | Preferred Language | Unknown | + + + | Marital Status | | + + + | Nondenominational Affiliation | 1041 | + + + [...] [place] | | | | | [address] | | + + + + + | Scot Damico | ECON | [address] | | | | | [place] [address] | | + + + + + Care Team Providers + +------+ + | Care Teacher Tutor Name | Role | Phone | + +------+ + | Ralph Chatman MD | PCP | | + +------+ + Reason for Visit +--------+--------+ + | Reason | Onset | Comments | | | Date | | +--------+--------+ + | Other | 04/22/ | vascular study | | | 2014 | | +--------+--------+ + Encounter Details +--------+ + + + + | Date | Type | Department | Care Team | Description | +--------+ + + + + | 04/22/ | Telephone | [facility] | [place], | Other (vascular | | 2014 | | PULMONARY [address] | Irina Sofia MD | study) | | | | [place], | | | | | | [place] [address] | | | | | | [phone] | | | +--------+ + + + [...] this encounter Miscellaneous Notes Telephone Encounter - Marlen Urbano, RN - 04/22/2015 3:58 PM PDTCalled Iraida and russel chandra with his Mary. Advised that [facility] does not do the BEBE with exercise study melisa t Dr Norton has ordered. That study is not done at [facility] either. [facility] doty s do these studies and Mary is agreeable to have the orders sent there.Electronically sign ed by Marlen Urbano, RN at 04/22/2015 4:01 PM PDTdocumented in this encounter Plan of [...] [address] | | | | | | [place] [address] | | | | | | [phone] | | | | | | | | +--------+ + + + + | 06/23/ | Procedure | Cardiology | | | 2019 | visit | | | | +--------+ + + + + | 07/06/ | Office | Neurology | Dada Goodiwn, | | | 2020 | Visit | | MD Gabriel [place] | | | | | | [address] | | | | | | [place] [address] | | | | | | [phone] | | | | | | | | +--------+ + + + + documented as of this encounter Visit Diagnoses Not on filedocumented in this encounter"
--- OUTSIDE RECORDS SUMMARY | ~2020-06-20 | XMS | Encounter Summary ---
Demographics + + + | Address | [address] | | | [place] [address] | + + + | Home Phone | | + + + | Preferred Language | Unknown | + + + | Marital Status | | + + + | Faith Affiliation | 1041 | + + + | Race | White | + + + | Ethnic Group | Not or | + + + Author + + + | Author | [facility] | | | and [place] | + + + | Organization | [facility] | | | [...] [place] | | | | | [address] | | + + + + + | Scot Damico | ECON | [address] | | | | | [place] [address] | | + + + + + Care Team Providers + +------+ + | Care Entertainment Reporter Name | Role | Phone | + [...] | | | | Diagnoses | | Rebecca, | | | | | Bradycardia | | Jacques Rodriguez MD | | | | | Procedures | | [address] | | | | | [address] | | [address] | | | | | ELECTROPHYS | | [place] | | | | | Theo NORMAN-V | | [place]Y [place] | | | | | PACE/REC,W/O | | [address] Phone: | | | | | INDUCT | | [phone] | +--------+--------+ + + + + Encounter Details +--------+ + + + + | Date | Type | Department | Care Team | Description | +--------+ + + + + | 01/17/ | Hospital | [facility] | Jacques Fernandez, | | | 2016 - | Encounter | [facility] | MD [address] | | | | | CARDIAC TRANSPLANT | [address] | | | 01/19/ | | [address] | [place] [address] | | | 2015 | | [place] | [phone] | | | | | [address] | | | | | | [phone] | | | +--------+ + + + [...] - 01/20/2016 9:20 AM PDT DISCHARGE SUMMARY [facility] PATIENT NAME/: Iraida Damico, (1935) [...] Medtronic pacemaker, model number A2DR01, serial number [id number]. The device looks great at discharge. He [...] syncope. POSTOPERATIVE DIAGNOSIS: Electrophysiology study for syncope. WHEEL INSTALLER: Jacques Fernandez MD PROCEDURE: The patient presents [...] AV block that is no t reversible. WHEEL INSTALLER: Jacques Fernandez MD. PROCEDURE: The patient presents with symptomatic bradyarrhythmias from intermittent hig h-degree AV block.Medtronic pacemaker, model number A2DR01, serial number [id number]. Device is seen to sense and pace [...] minutes Thank you for allowing [facility] to be involved in the care of [...] Black or tarry stools Any unusual bleeding 4867-0639 [facility], [address] [place] [address], [place] [address]. All rights reserve d. This information is [...] Fernandez MD - 01/18/2016 11:52 AM Casandra Damico is an 80-year-old male patient of Dr. Mio Hughes's referred for several presyncopal and a syncopal spell. Mr. Damico has a history of aortic valve disease, underwent aortic valve replacement for aor tic insufficiency. He has a history of hypertension. An echocardiogram done in 2014 showed preserved LV function, mild LVH. He is followed by a benefits clerk. He presents following several presyncopal and with [...] a day. This patient was seen at [facility] - [address], [place], [place] ; Contact . Active Problems FAINT (ICD-780.2) (IKM96-H53) VALVE REPLACEMENT (ICD-V43.3) (LXL67-B99.2) RHEUMATIC AORTIC VALVE DISEASE (ICD-395.9) (NXH59-L60.9) MURMUR, DIASTOLIC (ICD-785.2) (LKB79-R71.1) AORTIC VALVE REGURGITATION (ICD-424.1) (KCN57-U05.1) HTN (ICD-401.9) (SOA74-R31) * Problem list reviewed Current Meds Prior [...] as needed EXCEDRIN MIGRAINE 250-250-65 MG TABS (ANUQYKM-WVIJXAFZEKTGU-LFCVSHRM) 1 tablet by mouth every 6 hours as needed ANTI-DIARRHEAL TABS (LOPERAMIDE HCL TABS) 1 tablet by mouth daily SUDAFED 30 MG TABS (PSEUDOEPHEDRINE HCL) 1 tablet by mouth daily as needed * Medication list reviewed * Medication list was verified with patient or authorized business office representative. * All medications have been entered as described by [facility] 68 Allergies and Intolerances LISINOPRIL cough [...] 55) in 1st degree male relative: Son () - No Social History (reviewed - no [...] Cardiovascular Palp/Percussion: PMI in 5th ICS at [facility]; no lifts, thrills, palp S3 or S4. [...] estimated PA pressure. b. 01/26/13 echocardiogram in [place] stating left ventricle is 64 mm at [...] low back pain. Impression Problem Assessments FAINT (HRC56-Y59) - deteriorated RHEUMATIC AORTIC VALVE DISEASE (HLX41-V26.9) - unchanged HTN (AKL65-R83) - unchanged 1. Syncope and presyncope are [...] PATIENT NAME: Iraida Damico : 1935 DOSES: 628[address] mGy/cmDAP 434.9 mGy Air Kerma Yes Notified [...] visit and means by which to reintroduce wound care center consultant and the availability of emotional and spiritual [...] feelings, confli cts or sentiments around yessy, spiritism or spirituality. Nor were there p articular [...] Pt and planning to stay at the [facility] until Saturday and then they will dri ve home. RX sent to our out pt pharmacy to be filled. AVS complete and pt and educate d on meds, follow up apts, ADL restrictions, and when to seek medical assistance. Questions answered at this time. All belongings bagged up and sent with pt. Electronically signed by: Rebeca Cronin RN 01/20/2016 11:28 lan of Care - Lisa Ma RN - 01/20/2016 4:55 [...] Note Room # 652/652-01 Name: Iraida Damico [id number] Code Status: Unknown Isolation: None Dx/Tx: POD 2, PPM placement Surgery/ Procedure: Filed Vitals: 01/19/16 1517 01/19/16 1534 01/19/169 01/20/16 0000 BP: 149/89 149/89 138/81 142/82 Pulse: 60 62 66 63 Temp: 36.8 C (98.2 F) 37.1 C (98.8 F) 36.9 C (98.4 F) TempSrc: Temporal Temporal Temporal Resp: Height: Weight: SpO2: 95% 93% 93% Shift Summary Information: Plan to DC . Neuro: Intact Resp: Clear/dim LDAs Medlocked Cardiac: [...] Note Room # 652/652-01 Name: Iraida Damico [id number] Code Status: Unknown Isolation: None Dx/Tx: Bradycardia [...] SBA Therapy involved?: lan of Care - Wen Ramirez RN - 01/19/2016 2:54 PM PDTPt back from [facility] post PPM implant. LSC site intact w/tegaderm. No drainage noted on dressing. No s/s of edema. Lt radial pulse present. Pt den ies pain, SOB. Will continue to monitor per protocol. lan of Care - Wen Kimball RN - 01/19/2016 1:36 PM PDTForm [...] Note Room # 652/652-01 Name: Iraida Damico [id number] Code Status: Unknown Isolation: None Dx/Tx: syncope/pre-syncopal [...] hypote GEORGINA padilla 2012. Neuro: A/o but KNIK Resp: WNL LDAs Lt arm PIV Cardiac: Sinus Rhythm: normal sinus rhythm (01/19/16 1225) Ventricular Rhythm: (paced) (01/18/16 1136) Active Gtts: Abnormal Labs/ Treatment: GI: Active Orders Diet Diet NPO; strict NPO; Effective Now Last Bowel Movement: 01/18/16 (01/19/16 0000) : Skin: (Incisions/ Wounds/ Edema) Pain: Activity: Therapy involved?: p Note - Do asuncion Fernandez MD - 01/19/2016 12:59 PM PDT [facility] [address] OPERATIVE REPORT JACQUES FERNANDEZ MD Patient: IRAIDA DAMICO Admitting: JACQUES Rodriguez REBECCA MR #: [id number] LOC: PT TYPE: Adm Date: 01/18/2016 : 1935 DATE: 01/19/2016. POSTOPERATIVE DIAGNOSIS: As below PROCEDURE: DDD pacemaker placement for intermittent high-degree AV block that is not reve rsible. WHEEL INSTALLER: Jacques Fernandez MD. PROCEDURE: The patient presents [...] appendage lead. The RV lead is a Cloud Elementstronic mod el number 5079-58, serial number [id number], screwed into the mid septum, sutured to the pe ctoralis fascia using 0 silk times 2. The R-wave is 8.6 millivolts. The pacing threshold i s 0.5 milliseconds at 1.0 volts at 1.1 MA with an impedance of 730 ohms. The atrial lead is a Medtronic model number 5076-52, serial number [id number], screwed into the right atria l appendage [...] Medtronic pacemaker, model number A2DR01, serial number [id number]. Samreen rod is seen to sense and [...] 01/19/2016 12:59:15 Transcribed on 01/19/2016 14:03:18 by [facility] job# [id number] Confirmation #: [id number] cc: EILEEN CHATMAN MD TPlan of Frank [...] Note Room # 652/652-01 Name: Iraida Damico [id number] Code Status: Unknown Isolation: None Dx/Tx: Syncopal/Pre-syncopal episodes Surgery/ Procedure: PPM placement scheduled for today (OR schedule time 1200) Filed Vital s: 04/13/16 1900 01/18/16 1921 01/19/16 0000 01/19/16 0439 BP: 154/87 133/77 151/77 Pulse: 60 66 69 Temp: 36.6 C (97.8 F) 37.2 C (99 F) 36.9 C (98.4 F) TempSrc: Temporal Temporal Temporal Resp: 18 18 Height: Weight: 83.3 kg (183 lb [...] Note Room # 652/652-01 Name: Iraida Damico [id number] Code Status: Unknown Isolation: None Dx/Tx: Presyncopal [...] MD - 01/18/2016 12: 30 PM PDT [facility] [address] [place] [address] OPERATIVE REPORT JACQUES FERNANDEZ MD Patient: IRAIDA DAMICO Admitting: JACQUES FERNANDEZ MR #: [id number] LOC: PT TYPE: Adm Date: 01/18/2016 : 1935 DATE: 01/18/2016 PROCEDURE: EP study. PREOPERATIVE DIAGNOSIS: Electrophysiology study for syncope. POSTOPERATIVE DIAGNOSIS: Electrophysiology study for syncope. WHEEL INSTALLER: Jacques Fernandez MD PROCEDURE: The patient presents [...] 01/18/2016 12:30:30 Transcribed on 01/18/2016 23:42:21 by [facility] job# [id number] Confirmation #: [id number] cc: EILEEN CHATMAN MD Tdocumented in this [...] [address] | | | | | | [place] [address] | | | | | | [phone] | | | | | | | [...] D | | | | | | [place] [address] | | | | | | [phone] | | | | | | | [...] | 12:06 PM | | | | ([id number]) | | PDT | | | + +--------+ + + + | EP STUDY POSS | | 01/18/2016 | Bradycardia | | | ABLATION OR IMPLANT | | 10:51 AM | | | | ([id number]) | | PDT | | | + [...] | [facility] | | | [facility], | | HEART | | | | [address] [place] | | MEDICAL | | | | [address] | | CENTER | | | | | | LABORATORY | | + + + + + + + + | Specimen | + + | | + + + + + + + | Performing | Address | City/State/Zipcode | Phone Number | | Organization | | | | + + + + + | [facility] | [address] | [place] [address] | | | [facility] | | | | | LABORATORY | [...] + | [facility] | [address] | [place] [address] | | | [facility] | | | | | LABORATORY | [...] + + | Glucose | 103 (H)Comment: Chilean | 65 - 99 mg/dL | [facility] [...] at | | | | | | [facility] | | | | | | [facility], [address] | | | | | | , [place] [address] | | | | + + + + + + + + | Specimen | + + | Blood specimen | | (specimen) | + + + + + + + | Performing | Address | City/State/Zipcode | Phone Number | | Organization | | | | + + + + + | [facility] | [address] | [place] [address] | | | [facility] | | | | | LABORATORY | | | | + + + + + documented in this encounter Visit Diagnoses + + | Diagnosis | + + | Syncope - Primary Syncope and collapse | + + | NSVT (nonsustained ventricular tachycardia) (HCC) Paroxysmal ventricular tachycardia | + + | Incomplete AV heart [...] 11:43 | | | | | Starting [facility] 01/18/16 at 1047 | | AM PDT [...] 1:04 | | | | | Starting [facility] 01/19/16 at 1219 | | PM [...] chloride 0.9% (NS) | New Bag | 04/13/20 | | 10 mL/hr | | | infusion at 10 mL/hr, | | 16 10:05 | | | | | Intravenous, COLLOID MILL OPERATOR, Starting | | AM PDT | | | | | 01/18/16 at 0920, For 1 dose, | | | | | | | Pre-op | | | | | | + +---------+ +---+ +---+ +---+---+ | | | +---+---+ documented in this encounter
--- OUTSIDE RECORDS SUMMARY | ~2020-06-20 | XMS | Encounter Summary ---
Demographics + + + | Address | [address] | | | [place] [address] | + + + | Home Phone [...] + + + | Author | [facility] | | | and [place] | + + + | Organization | [facility] | | | [...] [place] | | | | | [address] | | + + + + + | Scot Damico | ECON | [address] | | | | | [place] [address] | | + + + + + Care Team Providers + +------+ + | Care Software Engineer Name | Role | Phone | [...] | Other | Ralph Trujillo, | MD Jose | | | | | symptoms and | [address] | [address] | | | | | signs | [address] | [address] | | | | | involving | [place] | D | | | | | the | [place] [address] | [place] | | | | | musculoskele | Phone: | [phone] | | | | | [employer] system | [phone] | Phone: | | | | | | Fax: | [phone] | | | | | | [phone] | Fax: | | | | | | | [phone] | + +--------+ + + + + Encounter Details +--------+---------+ + + + | Date | Type | Department | Care Team | Description | +--------+---------+ + + + | 12/06/ | Office | [facility] | Jose Hoff, | Weakness (Primary | | 2020 | Visit | NEUROLOGY [address] | MD [address] | Dx); Falls | | | | [address] | [address] | infrequently; | | | | [place], [place] | [facility] [address] | Neuropathy | | | | [address] | [phone] | | | | | [phone] | | | +--------+---------+ + + + [...] documented as of this encounter Progress Notes Jose Hoff MD - 12/07/2019 1:00 PM PSTFormatting of [...] of neurologic concern (imbalance and falls). [place]. Previous neurologist: None. - Onset, context and [...] mg by mouth Daily., Disp: , Rfl: Bmlszev-Yjbqjfcbsffcm-Hnghfdro (EXCEDRIN MIGRAINE PO), Take 1 tablet by [...] Cataract bilateral COPD (chronic obstructive pulmonary disease) ([facility]) COPD (chronic obstructive pulmonary disease) ([facility]) Degenerative joint disease rt knee-replacement done Epidural abscess 2003 related to septic in low back region Hypertension Melanoma ([facility]) 2009, 2010 x 3; 2 in head region and left nipple PANCHITO (obstructive sleep apnea) 09/2014 mild AHI 7.6, severe in supine sleep with AHI of 60.5; will bring in C-PAP Pneumonia 04/2013 several episodes, including as an Short-term memory loss at times 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 SOB (shortness of breath) on exertion Family History Problem Relation Age of Onset Cancer Mother pancreatic Hypertension Mother Stroke Maternal Grandfather Other (see comment) Sister bronchiectasis, followed by a lung doctor in [place] Social History Socioeconomic History Marital status: Spouse [...] file Gets together: Not on file Attends gnosticism service: Not on file Active member of [...] Narrative Lives: [place] With: his Grew up: [facility] Has previously lived in: [place], [place], born in [place] Exposure to toxic chemicals: possibly as a [...] to regimen. documented in this en counter Miscellaneous Notes Addendum Note - Jose Hoff MD - 12/07/2019 1:00 PM PST Addended by: JOSE HOFF on: 12/07/2019 03:02 PM Modules accepted: Level of Service documented in this encounter Plan of Treatment [...] | | | | | [place] [address] | | | | | | [phone] | | | | | | | | +--------+ + + + + | 06/23/ | Procedure | Cardiology | | | | 2019 | visit | | | | +--------+ + + + + | 07/06/ | Office | Neurology | Jose Hoff, | | | 2019 | Visit | | MD Gabriel [address] | | | | | | [place] | | | | | | [place] [address] | | | | | | [phone] | | | | | | | | +--------+ + + + + + +------+--------+ + + [...]
--- OUTSIDE RECORDS SUMMARY | ~2020-06-20 | XMS | Encounter Summary ---
Demographics + + + | Address | [address] | | | [place] [address] | + + + | Home Phone | | + + + | Preferred Language | Unknown | + + + | Marital Status | Single | + + + | Restoration Affiliation | CAT | + + + | Race | White | + + + | Ethnic Group | Not or | + + + Author + + + | Author | [facility] | + + + | Organization | [facility] | + + + | Address | Unknown | + + + | Phone | Unavailable | + + + Support + + +---------+ + | Name | Relationship | Address | Phone | + + +---------+ + | Elizabeth Damico | ECON | Unknown | | + + +---------+ + Care Team Providers + +------+ + | Care Rope Maker Name | Role | Phone | + +------+ + PCP | Unavailable | + +------+ + Encounter Details +--------+ + + + + | Date | Type | Department | Care Team | Description | +--------+ + + + + | 11/25/ | Results | Neurosurgery 3250 | Maria C Vences MD | | | 2003 | Only | [facility] | [address] | | | | | Amilcar Mailcode:OP14B | [place], [place] | | | | | [address] | [address] | | | | | [place], [place] | [phone] | | | | | [address] | | | | | | [phone] | | | +--------+ + + + [...] | | + +---------+ + + | [facility] DEPARTMENT OF | | [...] | | + +---------+ + + | [facility] DEPARTMENT OF | | | | | [...] DEPARTMENT OF | [address] | [place] [address] | | | PATHOLOGY | [address] | | | + + + + + | [facility] DEPARTMENT OF | [address] | [place] [address] | | | PATHOLOGY | [address] [...] | + + + + + | [facility] | [address] [facility] | [place] [address] | | | PATHOLOGY | [address] | | | + + + + + | [facility] DEPARTMENT OF | [facility] | [place] [address] | | | PATHOLOGY | [address] [...] | + + + + + | [facility] DEPARTMENT OF | [address] | [place] [address] | | | PATHOLOGY | [address] | | | + + + + + | [facility] DEPARTMENT OF | [address] | [place] [address] | | | PATHOLOGY | [address] | | | + + + + + SEDIMENTATION RATE (11/26/2003 7:27 AM PST) + +--------+ + + + | Component | Value | Ref Range | Performed | Pathologist | | | | | At | Signature | + +--------+ + + + | SEDIMENTATI | 62 (H) | <21 mm/hr | [facility] | | | ON RATE | | [...] | + + + + + | [facility] | [address] [facility] | [place] [address] | | | PATHOLOGY | [address] | | | + + + + + | [facility] | [address] [facility] | [place] [address] | | | PATHOLOGY | [address] [...] DEPARTMENT OF | [address] | [place] [address] | | | PATHOLOGY | [address] | | | + + + + + | [facility] DEPARTMENT OF | [address] | [place] [address] | | | PATHOLOGY | [address] [...] | + + + + + | [facility] DEPARTMENT OF | [address] | [place] [address] | | | PATHOLOGY | [address] | | | + + + + + | [facility] DEPARTMENT OF | [address] | [place] [address] | | | PATHOLOGY | [address] [...] | + + + + + | [facility] | [address] | [place] [address] | | | PATHOLOGY | [address] | | | + + + + + | [facility] DEPARTMENT | [address] | [place] [address] | | | PATHOLOGY | [address] [...] 36.6 (H)Comment: | 26.0 - 36.0 | [facility] | | | | APTT Therapeutic | [...] | + + + + + | [facility] DEPARTMENT OF | [address] | [place] [address] | | | PATHOLOGY | [address] | | | + + + + + | [facility] DEPARTMENT OF | [facility] | [place] [address] | | | PATHOLOGY | [address] [...] | | + +---------+ + + | [facility] DEPARTMENT OF | | | | | RADIOLOGY | | | | + +---------+ + + CULT, BLOOD BACTI & VICKEY (11/25/2003 4:15 AM PST) + [...] + + + + + | [facility] | [address] | [place] [address] | | | LAB-MICRO | | | | + + + + + CULT, BLOOD CHARANJITI & VICKEY (11/25/2003 4:10 AM PST) + + + [...] + | [facility] | [address] | [place] [address] | | | LAB-MICRO | | | [...] + | [facility] DEPARTMENT OF | [address] | [place] [address] | | | PATHOLOGY | [address] | | | + + + + + | [facility] DEPARTMENT OF | [address] | [place] [address] | | | PATHOLOGY | [address] [...] | + + + + + | [facility] DEPARTMENT OF | [address] | [place] [address] | | | PATHOLOGY | [address] | | | + + + + + | [facility] DEPARTMENT OF | [address] | [place] [address] | | | PATHOLOGY | [address] [...] | + + + + + | [facility] | [address] | [place] [address] | | | PATHOLOGY | [address] | | | + + + + + | [facility] | [address] [facility] | [place] [address] | | | PATHOLOGY | [address] | | | + + + + + documented in this encounter Visit Diagnoses Not on filedocumented in this encounter"
--- OUTSIDE RECORDS SUMMARY | ~2020-06-20 | XMS | Encounter Summary ---
Demographics + + + | Address | [address] | | | [place] [address] | + + + | Home Phone | | + + + | Preferred Language | Unknown | + + + | Marital Status | | + + + | Yarsani Affiliation | 1041 | + + + | Race | White | + + + | Ethnic Group | Not or | + + + Author + + + | Author | [facility] | | | and [place] | + + + | Organization | [facility] | | | [...] [place] | | | | | [address] | | + + + + + | Scot Damico | ECON | [address] | | | | | [place] [address] | | + + + + + Care Team Providers + +------+ + | Care Circulation Librarian Name | Role | Phone | + [...] 2013 | | [facility] | [address] | | | | | ADMIT AND RECOVERY | [place], [place] | | | | | [address] | [address] | | | | | [place], [place] | | | | | | [address] | | | | | | [phone] | | | +--------+---------+ + + + [...] + documented as of this encounter Progress Johanna Gross RN - 03/30/2014 1:59 PM PDTPatient and fully acknowledge FLORENTIN d ischarge instructions. Patient alert and oriented upon discharge. documented in this encounter H&P Theo Jennings MD - 03/29/2014 2:42 PM PDTChief Complaint: A 78-year-old seen for followup of his aortic valve disease History of Present Illness [place] had been having worsening shortness of breath. He has not had an echocardiogram since his valve replacement. He had the echo today. The patient is a little more than six months post aortic valve replacement, complains of sh ortness of breath which has not improved since the surgery. He denies any palpitations or s yncope. Active Problems AORTIC INSUFFICIENCY, SEVERE 3-4 PER CARDIAC CATH, 07/06/13 (ICD-424.1) S/P CARDIAC CATH, 07/06/13, EF 60-65% NORMAL CORONARIES (CPT-72461) S/P AORTIC VALVE REPLACEMENT, 07/08/13 -MEDTRONIC GONZALEZ II (CPT-35173) MURMUR, DIASTOLIC (ICD-785.2) S/P NUCLEAR STRESS TEST, 07/18 (CPT-53932) AORTIC VALVE REGURGITATION, MODERATE-PER 01/17 ECHO (ICD-424.1) S/P ECHO, 01/17, EF 60% (CPT-98286) HYPERTENSION (ICD-401.1) LOW BACK PAIN (ICD-724.2) DEGENERATIVE JOINT DISEASE (ICD-715.90) ANEMIA, MILD PER PCP (ICD-285.9) * Problem list reviewed Current Meds Prior To This Update ASPIRIN EC 81 MG TBEC (ASPIRIN) 1 tablet daily METOPROLOL TARTRATE 25 MG TABS (METOPROLOL TARTRATE) 1 tablet twice daily LOSARTAN POTASSIUM 100 MG TABS (LOSARTAN POTASSIUM) 1 tablet daily AMLODIPINE BESYLATE 5 MG TABS (AMLODIPINE BESYLATE) 1 tablet daily PRILOSEC 20 MG CPDR (OMEPRAZOLE) 1 capsule daily as needed NORCO 5-325 MG TABS (HYDROCODONE-ACETAMINOPHEN) 1/2 tablet every 8-10 hrs as needed for cou gh B COMPLEX 50 TABS (B COMPLEX VITAMINS) 1 tablet daily VITAMIN C 500 MG TABS (ASCORBIC ACID) 1 tablet daily VITAMIN D3 2000 UNIT CAPS (CHOLECALCIFEROL) 1 tablet daily TYLENOL EXTRA STRENGTH 500 MG TABS (ACETAMINOPHEN) 2 tablets daily as needed EXCEDRIN MIGRAINE 250-250-65 MG TABS (UAWYZAQ-XDBWOQXYKDNIN-PSLSLIEH) 1 tablet every 6 hrs as needed ANTI-DIARRHEAL TABS (LOPERAMIDE HCL TABS) 1 tablet daily SUDAFED 30 MG TABS (PSEUDOEPHEDRINE HCL) uses as needed * Medication list reviewed * Medication list was verified with patient or authorized traveling sales representative. Allergies and Intolerances LISINOPRIL cough * Allergies/intolerances reviewed Past, Family, and Social History Past History (reviewed - no changes required): Murmur Aortic regurgitation Hypertension Low back pain DJD Pneumonia March 2013, anemia Surgical History (reviewed - no changes required): Tonsillectomy and adenoidectomy Right knee arthroscopy Epidural abscess with L3-4,L4-5 for laminectomy 2003 (for epidural abscess) Right knee replacement, 11/27/2005 Lumbar fusion AVR Family History (reviewed - no changes required): Father: in his 50s from suicide Mother: in his 80s from hypertension and pancreatic cancer Brother(s): alive & well- hyperlipidemia Sister(s): 0 Social History (reviewed - no changes required): , Jadyn. 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 Review of Systems Constitutional: Denies: fevers, chills, fatigue, weight loss, sudden weight gain. Eyes: Denies: vision loss, sudden vision loss, blurring, double vision. Ears/Nose/Throat: Denies: tinnitus, decreased hearing, nosebleeds, recent dental issues. Cardiovascular: Denies: chest pains, palpitations, syncope, presyncope, dizziness, orthopne a, PND, peripheral edema, claudication, DVT, vein problems, Raynaud's syndrome, hair loss. Respiratory: Complains of: dyspnea with exertion, cough. Denies: dyspnea at rest, excessive sputum, hemoptysis, wheezing, sleep apnea, snoring. Gastrointestinal: Denies: nausea, vomiting, diarrhea, constipation, abdominal pain, melena, reflux, polyps, hemorrhoids. Genitourinary: Complains of: erectile dysfunction, nocturia. Denies: hematuria, dysuria, in creased urinary frequency, urinary hesitancy, incontinence. Musculoskeletal: Denies: back pain, arthritis, muscle weakness, myalgias. Skin: Denies: rash, itching, suspicious lesions. Neurologic: Complains of: memory impairment. Denies: transient paralysis, paresthesias, sei zures, tremors, sciatica, balance problems, headache. Psychological: Denies: anxiety, depression. Heme/Lymphatic: Denies: abnormal bruising, bleeding, enlarged lymph nodes. Endocrine: Denies: cold intolerance, heat intolerance, polydipsia, polyuria. Allergic/Immunologic: Complains of: hay fever. * I personally reviewed the Review of Systems. Vital Signs Ht: 177.80 cm (70 inches) Wt: 86.82 kg (191 pounds) Pulse: 60 bpm, regular Resp: 16 BP: 118/60 mmHg, adult cuff Calculations Body Mass Index: 27.50 Body Surface Area (m2): 2.05 Physical Exam Constitutional General appearance: well developed, well nourished, well groomed, no acute distress Cardiovascular Palp/Percussion: PMI in 5th ICS at MCL; no lifts, thrills, palp S3 or S4. Auscultation: normal S1 S2; no gallop or rub or click Murmur: Grade 2/6; systolic ejection murmur LSB. Carotid arteries: pulses 2+, symmetric, no bruits Jugular veins: no significant JVD; no a, v or hammer waves Peripheral circulation: no cyanosis, edema, or varicosities Gastrointestinal Abdomen: obese Neurological Orientation: oriented to time, place, and person Psychological Affect/Mood: no depression, anxiety, or agitation Respiratory Respiratory effort: no intercostal retractions or use of accessory muscles Auscultation: no rales, rhonchi, or wheezes Eyes Conjunctiva & lids: conjunctiva and lids normal Musculoskeletal Gait and station: altered/slow ambulation; unlikely to undergo exercise testing Skin Inspection: no visible rashes, lesions, or ulcerations Test and Lab Results Lab Results Cholesterol: 157, 07/06/2013 HDL: 39, 07/06/2013 LDL (CALCUL): 102, 07/06/2013 Triglyceride: 79, 07/06/2013 Creatinine: 0.96, 07/06/2013 Assessment Impressions: 1. Aortic insufficiency. a. 2004 to 2011 multiple echocardiograms showing moderate aortic insufficiency, left ventricular end diastolic dimension 6.1 cm, normal estimated PA pressure. b. 01/26/13 echocardiogram in [place] stating left ventricle is 64 mm at [...] post laminectomy x2, chronic low back pain. Plan The patient is post tissue valve replacement less than a year and has a what appears to be an increased gradient across the aortic valve. Postoperatively, the gradient was 8 with a p eak of 17, now appears to be 28 with a peak in the 50s. Leaflets appear to be moving normal ly. The patient has symptoms of shortness of breath with activity. Better evaluation by a transesophageal echo was recommended and will be scheduled for next week. Repeat catheteriz ation may be necessary to clearly identify the functioning of the valve. BMI/Weight counseling: BMI is normal Disposition: return to clinic in 2 weeksElectronically signed by Theo Horan MD at 014 2:42 PM PDTdocumented in this encounter Miscellaneous Notes Plan of Care - [facility] - 04/02/2014 12:00 AM PDT iscellaneous - [facility] - 04/02/2014 12:00 AM PDTElec tronically signed by [facility] at 04/02/2014 1:03 PM PDTMiscellaneous - [facility] - 04/02/2014 12:00 AM PDT do cumented in this encounter Plan of Treatment +--------+ + + + + | Date | Type | Specialty | Care Team | Description | +--------+ + + + + | 06/23/ | Office | Cardiology | Rowdy Haines | | | 2019 | Visit | | MD [address] | | | | | | [address] | | | | | | [place] [address] | | | | | | [phone] | | | | | | | [...] D | | | | | | [place] [address] | | | | | | [phone] | | | | | | | [...] Echo | | | Report Name: IRAIDA DAMICOsimon Date: 03/30/2014 MRN: | | | [id number] Patient Location: [facility] | | | : 1935 Age: 78 [...] | | | administered by the staff nurse midwife under my direction. Standard endoscopy | | [...] Ordering Physician: Theo HORAN | | | Leather Skinner: Theo Horan MD [id number]: | | + + + + + | Procedure Note | + + | Jorje, Niles Results In - 03/30/2014 5:11 PM PDT | | Transesophageal | | Echo Report | | | | Name: IRAIDA DAMICO Date: 03/30/2014 | | Patient Location: [facility] | | : 1935 Age: [...] sedation was then administered by the staff nurse midwife under my | | direction. Standard endoscopy [...] | Ordering Physician: Theo HORAN | | Leather Skinner: Theo Horan MD | | [id number]: | + + + +---------+ + + | Performing | Address | City[facility] Phone Number | | Organization | | | | + +---------+ + + | MISCELLANEOUS LAB | | | [phone] | + +---------+ + + | MISCELANIOUS LAB | | | [phone] | + +---------+ + + documented in [...]
--- OUTSIDE RECORDS SUMMARY | ~2020-06-20 | XMS | Encounter Summary ---
Demographics + + + | Address | [address] | | | [place] [address] | + + + | Home Phone [...] + + + | Author | [facility] | | | and [place] | + + + | Organization | [facility] | | [...] [place] | | | | | [address] | | + + + + + | Scot Damico | ECON | [address] | | | | | [place] [address] | | + + + + + Care Team Providers + +------+ + | Care Display Fabrication Supervisor Name | Role | Phone | [...] | | Shortness | [place], | [address] | | | | | of breath | Irina B, | [place], | | | | | Procedures | MD [address] | [place] [address] | | | | | CT Chest wo | [address] | Phone: | | | | | Contrast | [place], | [phone] | | | | | | [place] [address] | Fax: | | | | | | | [phone] | +--------+--------+ + + + + Reason for Visit Diagnostic/Screening (Routine) +--------+--------+ + + + + | Status | Reason | Specialty | Diagnoses / | Referred By | Referred To | | | | | Procedures | Contact | Contact | +--------+--------+ + + + + | Closed | | Radiology | Diagnoses | | [address] | | | | | Shortness | [place], | [address] | | | | | of breath | Irina B, | [place], | | | | | Procedures | MD [address] | [place] [address] | | | | | CT Chest wo | [address] | Phone: | | | | | Contrast | [place], | [phone] | | | | | | [place] [address] | Fax: | | | | | | | [phone] | +--------+--------+ + + + + Encounter Details +--------+ + + + + | Date | Type | Department | Care Team | Description | +--------+ + + + + | 07/29/ | Hospital | [facility] | [place], | Shortness of breath | | 2013 | Encounter | MED CTR [address] | Irina B, MD | | | | | [place], | | | | | | [place] [address] | | | | | | [phone] | | | +--------+ + + + [...] documented as of this encounter Progress Notes Irina Norton MD - 08/08/2014 12:32 PM PST Quick Note: Please let the patient know that their chest CT was read by the radiologist as having some tiny, 3mm spots, which are non specific, but a repeat scan is recommended 1 year after the initial, so in July 2015. documented in this encounter Plan of Treatment +--------+ + + + + | Date | Type | Specialty | Care Team | Description | +--------+ + + + + | 06/23/ | Office | Cardiology | Rowdy Haines | | | 2019 | Visit | | MD [address] | | | | | | [address] | | | | | | [place] [address] | | | | | | [phone] | | | | | | | [...] | | | [place] [address] | | | | | | [phone] | | | | | | | | +--------+ + + + + documented as of this encounter Procedures + +--------+ + + + | Procedure Name | Priori | Date/Time | Associated Diagnosis | Comments | | | ty | | | | + +--------+ + + + | CT CHEST WO CONTRAST | Routin | 07/29/2014 | Shortness of | Results for this | | | e | 12:41 PM | breath | procedure are in the | | | | PDT | | results section. | + +--------+ + + + documented in this encounter Results CT Chest wo Contrast [...] patient's | | | previous pneumonia from 2013. Airways within the lungs are | | [...] + | MISCELLANEOUS LAB | | | [phone] | + +---------+ + + | MISCELANIOUS LAB | | | [phone] | + +---------+ + + documented in this encounter Visit Diagnoses + + | Diagnosis | + + | Shortness of breath | + + documented in this encounter
--- OUTSIDE RECORDS SUMMARY | ~2020-06-20 | XMS | Encounter Summary ---
Demographics + + + | Address | [address] | | | [place] [address] | + + + | Home Phone | | + + + | Preferred Language | Unknown | + + + | Marital Status | Single | + + + | Baptist Affiliation | CAT | + + + | Race | White | + + + | Ethnic Group | Not or | + + + Author + + + | Author | [facility] | + + + | Organization | [facility] | + + + | Address | Unknown | + + + | Phone | Unavailable | + + + Support + + +---------+ + | Name | Relationship | Address | Phone | + + +---------+ + | Elizabeth Damico | ECON | Unknown | | + + +---------+ + Care Team Providers + +------+ + | Care Spike Machine Operator Name | Role | Phone [...] [id number] | | | | | | [place] [facility] | | | | | | and Healing, | | | | | | [facility], [facility] | | | | | | [place], [place] | | | | | | [address] | | | | | | [phone] | | | +--------+ + + + [...] patchy | | | | | | abcnl-pjhx-bqe-brown | | | | | | skin, [id number]. | | | | | | Thesurgical [...] papular | | | | | | kpa-tabq-czehf skin, | | | | | | [id number]. Thesurgical | | | | | | [...] patchy | | | | | | zofkd-fpmi-xoz skin, | | | | | | [id number]. Thesurgical | | | | | | [...] + + + + | MELVIN | [address] | [place] [address] | | | DERMATOPATHOLOGY | [address] | | | + + + + + | MELVIN | [address] | [place] [address] | | | DERMATOPATHOLOGY | [address] [...]
--- OUTSIDE RECORDS SUMMARY | ~2020-06-20 | XMS | Encounter Summary ---
Demographics + + + | Address | [address] | | | [place] [address] | + + + | Home Phone [...] + + + | Author | [facility] | + + + | Organization | [facility] | + + + | Address | Unknown | + + + | Phone | Unavailable | + + + Support + + +---------+ + | Name | Relationship | Address | Phone | + + +---------+ + | Elizabeth Damico | ECON | Unknown | | + + +---------+ + Care Team Providers + +------+ + | Care Telecom Assistant Name | Role | Phone | [...]
--- OUTSIDE RECORDS SUMMARY | ~2020-06-20 | XMS | Encounter Summary ---
Demographics + + + | Address | [address] | | | [place] [address] | + + + | Home Phone | | + + + | Preferred Language | Unknown | + + + | Marital Status | | + + + | Anabaptist Affiliation | 1041 | + + + | Race | White | + + + | Ethnic Group | Not or | + + + Author + + + | Author | [facility] | | | and [place] | + + + | Organization | [facility] | | | [...] [place] | | | | | [address] | | + + + + + | Scot Damico | ECON | [address] | | | | | [place] [address] | | + + + + + Care Team Providers + +------+ + | Care Pulpit Operator Name | Role | Phone | + +------+ + | Milvia Snyder MD | PCP | | + +------+ + Reason for Visit +---------+--------+ + | Reason | Onset | Comments | | | Date | | +---------+--------+ + | Imaging | 06/16/ | orders | | | 2020 | | +---------+--------+ + Encounter Details +--------+ + + + + | Date | Type | Department | Care Team | Description | +--------+ + + + + | 06/16/ | Telephone | [facility] | Dada Goodwin, | Imaging (orders ) | | 2019 | | NEUROLOGY [address] | MD [address] | | | | | [address] | [address] | | | | | [place], [place] | [place] [address] | | | | | [address] | [phone] | | | | | [phone] | | | +--------+ + + + [...] this encounter Miscellaneous Notes Telephone Encounter - Nika Lomas CMA - 06/16/2020 6:06 PM PDTReturned call and inform ed patient that I would fax that CT order againElectronically signed by JESSICA Lees t 06/16/2020 6:07 PM PDTTelephone Encounter - Alana Tuttle - 06/16/2020 4:12 P M PDTBud, is calling regarding Imaging (orders ) and would like a call back. Additional Call Details: Would like to know if x-ray orders for his neck were ever called into [facility] in [place] If this is a symptom based call, was patient offered triage? Not Applicable If this is a symptom based call and you were unable to immediately transfer the call to a hilda ngo seismograph supervisor was caller made aware that if at any time he feels it is an emergency they karine uld call 911 or go to the nearest emergency room? not applicable documented in this encounter Plan of Treatment [...] | | | | | [place] [address] | | | | | | [phone] | | | | | | | [...] | | | [place] [address] | | | | | | [phone] | | | | | | | | +--------+ + + + + documented as of this encounter Visit Diagnoses Not on filedocumented in this encounter"
--- OUTSIDE RECORDS SUMMARY | ~2020-06-20 | XMS | Encounter Summary ---
Demographics + + + | Address | [address] | | | [place] [address] | + + + | Home Phone | | + + + | Preferred Language | Unknown | + + + | Marital Status | | + + + | Hoahaoism Affiliation | 1041 | + + + | Race | White | + + + | Ethnic Group | Not or | + + + Author + + + | Author | [facility] | | | and [place] | + + + | Organization | [facility] | | | and [place] | + [...] [place] | | | | | [address] | | + + + + + | Scot Damico | ECON | [address] | | | | | [place] [address] | | + + + + + Care Team Providers + +------+ + | Care Computer Software Engineer Name | Role | Phone | + +------+ + | Milvia Snyder MD | PCP | | + +------+ + Reason for Visit + +--------+ + | Reason | Onset | Comments | | | Date | | + +--------+ + | Appointment | 04/29/ | 05/02 later time appt request | | | 2020 | | + +--------+ + Encounter Details +--------+ + + + + | Date | Type | Department | Care Team | Description | +--------+ + + + + | 04/29/ | Telephone | [facility] | Dada Goodwin, | Appointment (05/02 | | 2020 | | NEUROLOGY [address] | MD [address] | later time appt | | | | [address] | [address] | request) | | | | [place] | [place] [address] | | | | | [address] | [phone] | | | | | [phone] | | | +--------+ + + + [...] this encounter Miscellaneous Notes Telephone Encounter - Ramiro Marylin Parker - 04/29/2020 3:52 PM PDTBud, is calling again for A ppointment (05/02 later time appt request) and would like a call back. Additional Call Details: Calling again- waiting on a call back. Concerned with timing- sin ce appointment is on Saturday. Please call back today. [phone] elephone Encounter - rizwan Marylin Parker - 04/29/2020 12:45 PM PDTLaverne, is calling regarding Appointment (05/02 [facility] er time appt request) and would like a call back. Additional Call Details: Requesting a later time appointment on 05/02 if possible. Please call back at: [phone] If this is a symptom based call, was patient offered triage? Not Applicable If this is a symptom based call and you were unable to immediately transfer the call to a hilda ngo can filling machine operator was caller made aware that if at [...] [place] | | | | | | [place] [address] | | | | | | [phone] | | | | | | | | +--------+ + + + + | 09/17/ | Procedure | Cardiology | | | | 2019 | visit | | | | +--------+ + + + + | 07/06/ | Office | Neurology | Dada Goodwin, | | | 2019 | Visit | | MD Gabriel [address] | | | | | | [place] | | | | | | [place] [address] | | | | | | [phone] | | | | | | | | +--------+ + + + + documented as of this encounter Visit Diagnoses Not on filedocumented in this encounter"
--- OUTSIDE RECORDS SUMMARY | ~2020-06-20 | XMS | Encounter Summary ---
Demographics + + + | Address | [address] | | | [place] [address] | + + + | Home Phone | | + + + | Preferred Language | Unknown | + + + | Marital Status | | + + + | Buddhist Affiliation | 1041 | + + + | Race | White | + + + | Ethnic Group | Not or | + + + Author + + + | Author | [facility] | | | and [place] | + + + | Organization | [facility] | | | [...] [place] | | | | | [address] | | + + + + + | Scot Damico | ECON | [address] | | | | | [place] [address] | | + + + + + Care Team Providers + +------+ + | Care Restorative Care Technician Name | Role | Phone | + +------+ + | Ralph Chatman MD | PCP | | + +------+ + Encounter Details +--------+ + + + + | Date | Type | Department | Care Team | Description | +--------+ + + + + | 07/29/ | Hospital | [facility] | [facility] Cough | | 2013 | Encounter | MED CTR PULMONARY | Irina Sofia MD | | | | | FUNCTION [address] | | | | | | [place], | | | | | | [place] [address] | | | | | | [phone] | | | +--------+ + + + [...] documented as of this encounter Procedure Notes Irina Norton MD - 08/03/2014 9:22 AM PDTAssociated Order(s): PFT PULMONARY FUNCT ION TESTING ORDERSProcedure(s): PFT PULMONARY FUNCTION TESTING ORDERSPre-Procedure Diagnose( s): Cough PULMONARY FUNCTION TESTING METHOD: Spirometry was obtained pre administration of inhaled bronchodilator only. Lung vol umes were obtained by body plethysmography. Diffusion capacity was obtained by single breath method and was not corrected for a measured hemoglobin. ATS standards were met. SPIROMETRY: FVC was normal at 4.05 L or 131% of predicted. FEV1 was normal at 2.85 L or 120 % of predicted. FEV1/FVC ratio was normal at 70%. LUNG VOLUMES: Total lung capacity was normal at 6.35 L or 114% of predicted. Residual volum e was normal at 2.30 L or 91% of predicted. RV/TLC ratio was mildly decreased at 36% or 77 % of predicted. DIFFUSION CAPACITY: Diffusion capacity was moderately decreased at 13.8 mL/mmHg per minute or 58% of predicted and was not corrected for a measured hemoglobin. IMPRESSION: Spirometry is normal. Lung volume testing is normal. Diffusion capacity is mode rately reduced and is not corrected for measured hemoglobin. Electronically signed by: Irina Norton MD 08/03/2014 9:22 [facility] CC: Ralph Chatman NBASE SCAN [place] T - 07/29/2014 12:00 AM PDTAssociated Order(s): DIAGNOSTIC REPORT - EXTERNAL SCANElectronica lly signed by Martell Holland at 08/04/2014 10:01 AM PDTdocumented in this encounter Plan of [...] [address]ERT[address] | | | | | | [place] [address] | | | | | | [phone] | | | | | | | [...] D | | | | | | [place] [address] | | | | | | [phone] | | | | | | | [...] | | Irina Norton MD 08/03/2014 9:22 [facility] | | | [facility] CC: Ralph Justicechandrakant Chatman | | + + + + [...] signed by: Irina Norton, | | 08/03/2014 [facility]:22[facility] Ralph Chatman | |[facility] | | | |CC: Ralph Chatman | + + documented in this encounter Visit Diagnoses + + | Diagnosis | + + | Cough | + + documented in this encounter"
--- OUTSIDE RECORDS SUMMARY | ~2020-06-20 | XMS | Encounter Summary ---
Demographics + + + | Address | [address] | | | [place] [address] | + + + | Home Phone [...] Team Providers + +------+ + | Care Church Supervisor Name | Role | Phone | [...] as of this encounter Procedure Notes Interface, Bow Machine Operator In - 10/13/2005 4:48 AM PSTDate: 11/25/2003 Attending Surgeon: Maria C Vences M.D. Compensation Agent(s): Mc Arnold M.D. Preoperative Diagnoses: 1. L3-L4 diskitis. 2. Lumbar epidural abscess. Postoperative Diagnosis(es): 1. L3-L4 diskitis. 2. Lumbar epidural abscess. Procedures Performed: 1. L3-L4 laminectomy. 2. Debridement and culture of epidural space. Pursuant to Federal Medicare billing regulations, I certify that I was present at a minimum for the critical portions of the procedure including L3-L4 decompressive laminectomy, debridement of the epidural space, culture of the epidural tissue, and closures. Maria C Vences M.D. / [id number] / [id number] / [id number] / [id number] Tdocumented in this encounter Plan of Treatment [...]
--- OUTSIDE RECORDS SUMMARY | ~2020-06-20 | XMS | Encounter Summary ---
Demographics + + + | Address | [address] | | | [place] [address] | + + + | Home Phone [...] [place] | | | | | [address] | | + + + + + | Scot Damico | ECON | [address] | | | | | [place] [address] | | + + + + + Care Team Providers + +------+ + | Care Manager Life Name | Role | Phone | + [...] | pulmonary disease, | | | | [place], | | unspecified COPD | | | | [place] [address] | | type (HCC); | | | | [phone] | | Pulmonary nodules; | | | [...] brachial index. He continued off of the [facility] ort and Spiriva. He notes he still has "weak legs and out of breath." He had his ankle brachial index testi ng done at [facility] and it was normal. He has [...] Laterality: N/A; Surgeon: Theo Garza MD; Location: [facility] Social History: History Social History Marital Status: [...] Topics Concern None Social History Narrative Lives: [place] With: his Grew up: [facility] Has previously lived in: [place], [place], born in [place] Exposure to toxic chemicals: [...] morning (before breakfast ). Respiratory Therapy Supplies [facility] S9 auto CPAP 9 cm [...] obstructive pulmonary disease, unspecified COPD type (HCC) J44.9 496 Very diffic ult to get [...] made to ensure accuracy; however, inadvertent computerized student counselor errors may be pre sent. documented in [...] | | | | | [place] [address] | | | | | | [phone] | | | | | | | [...] | | | [place] [address] | | | | | | [phone] | | | | | | | [...]
--- OUTSIDE RECORDS SUMMARY | ~2020-06-20 | XMS | Encounter Summary ---
Demographics + + + | Address | [address] | | | [place] [address] | + + + | Home Phone [...] + + + | Author | [facility] | | | and [place] | + + + | Organization | [facility] | | [...] [place] | | | | | [address] | | + + + + + | Scot Damico | ECON | [address] | | | | | [place] [address] | | + + + + + Care Team Providers + +------+ + | Care Line Palletizer Name | Role | Phone | + +------+ + PCP | Unavailable | + +------+ + Encounter Details +--------+ + + + + | Date | Type | Department | Care Team | Description | +--------+ + + + + | 02/24/ | Hospital | [facility] | Unknown, | | | 2006 | Encounter | MED CTR XRAY [address] | MD Pratima . | | | | | [place] | | | | | | [place] [address] | (Fax) | | | | | [phone] | | | +--------+ + + + [...] [address] | | | | | | [place] [address] | | | | | | [phone] | | | | | | | [...] | | | [place] [address] | | | | | | [phone] | | | | | | | | +--------+ + + + + documented as of this encounter Visit Diagnoses Not on filedocumented in this encounter"
--- OUTSIDE RECORDS SUMMARY | ~2020-06-20 | XMS | Encounter Summary ---
Demographics + + + | Address | [address] | | | [place] [address] | + + + | Home Phone | | + + + | Preferred Language | Unknown | + + + | Marital Status | | + + + | Buddhism Affiliation | 1041 | + + + | Race | White | + + + | Ethnic Group | Not or | + + + Author + + + | Author | [facility] | | | and [place] | + + + | Organization | [facility] | | | and [...] [place] | | | | | [address] | | + + + + + | Scot Damico | ECON | [address] | | | | | [place] [address] | | + + + + + Care Team Providers + +------+ + | Care Kelly Machine Operator Name | Role | Phone | + +------+ + | Ralph Chatman MD | PCP | | + +------+ + Encounter Details +--------+ + + + + | Date | Type | Department | Care Team | Description | +--------+ + + + + | 07/06/ | Hospital | [facility] | Mio Hughes, | | | 2012 | Encounter | MED CTR CARDIAC | MD [address] | | | | | ADMIT AND RECOVERY | [address] [place], | | | | | [address] | [place] [address] | | | | | [place] | [phone] | | | | | [address] | | | | | | [phone] | | | +--------+ + + + [...] documented as of this encounter Procedure Notes Mio Hughes MD - 07/06/2013 2:38 PM PDT PATIENT NAME: IRAIDA DAMICO Sex/Age: M / 78Y : 1935 [employer] APPRENTICE: Mio Hughes MD DATE: 07/06/2013 PROCEDURE: Right and left heart cardiac catheterization, coronary angiography and aortic root angiography. PREOPERATIVE DIAGNOSIS: Aortic insufficiency. POSTOPERATIVE DIAGNOSIS: Aortic insufficiency. DESCRIPTION OF PROCEDURE: Right and left heart cardiac catheterization was performed from the right groin using standard Jamal technique and 5 Mexican diagnostic catheters. Henderson-Ga nz catheter was advanced. Pulmonary capillary wedge position. Cardiac outputs obtained by thermal dilution. Aortic root shot and left ventricle performed with a pigtail catheter. CONCLUSIONS: 1. Normal coronary arteries without evidence of atherosclerotic disease. 2. Normal left ve ntricular function. Ejection fraction 60 to 65%. 3. Mildly elevated pulmonary pressures. P ulmonary artery pressure of 45/15, mean of 26.5. Pulmonary capillary wedge pressure of 14, cardiac output of 5.6. 4. Minimal aortic stenosis, less than 5 mm gradient across the aortic valve. 5. Severe aortic insufficiency 3-1/2 to 4+ aortic regurgitation. COMMENT: Patient to be seen by Dr. Ceballos. He has increasing symptoms and severe insuffi ciency noted on this cardiac catheterization. Mio Hughes MD [facility] #[id number] cc: MD Danish Buchanan MD KWAKU DAMICO F ADM:07/06/13 [id number] 07/06/13 DEP CLI CARDIAC PROCEDURE REPORT [id number] [facility] Mio osborne MD E-Sign: [facility] THIS REPORT IS CONFIDENTIAL AND NOT TO BE RELEASED WITHOUT PROPER AUTHORIZATION. [facility] Electronically Signed 07/13/13 1004 Mio Hughes MD PHILLIPLAWRENCEJoan FERRERA F ADM:07/06/13 [id number] 07/06/13 DEP CLI CARDIAC PROCEDURE REPORT [id number] [facility] Mio osborne MD E-Sign: [facility] THIS REPORT IS CONFIDENTIAL AND NOT TO BE RELEASED WITHOUT PROPER AUTHORIZATION.Electronica lly signed by Mio Hughes MD at 07/13/2013 10:04 AM PDTdocumented in this encounter Plan of [...] | | | | | [place] [address] | | | | | | [phone] | | | | | | | [...] | | | [place] [address] | | | | | | [phone] | | | | | | | | +--------+ + + + + documented as of this encounter Procedures + +--------+ + + + | Procedure Name | Priori | Date/Time | Associated Diagnosis | Comments | | | ty | | | | + +--------+ + + + | LIPID PANEL | Routin | 07/06/2013 | | Results for this | | | e | 12:35 PM | | procedure are in the | | | | PDT | | results section. | + +--------+ + + + | CBC WITH | Routin | 07/06/2013 | | Results for this | | DIFFERENTIAL | e | 12:35 PM | | procedure are in the | | | | PDT | | results section. | + +--------+ + + + | BASIC METABOLIC | Routin | 07/06/2013 | | Results for this | | PANEL | e | 12:35 PM | | procedure are in the | | | | PDT | | results section. | + +--------+ + + + documented in this encounter Results Lipid Panel (07/06/2013 12:35 PM PDT) + + + + + + | Component | Value | Ref Range | Performed | Pathologist | | | | | At | Signature | + + + + + + | Cholesterol | 157Comment: <200: | <200 mg/dL | [facility] | | | | Desirable | | [facility] | | | | | | [facility] | | | | | | MEDICAL | | | | | | CENTER | | | | | | LABORATORY | | + + + + + + | Triglycerid | 79Comment: <150: | <150 mg/dL | [facility] | | | es | Normal | | [facility] | | | | | | HE[facility] | | | | | | MEDICAL | | | | | | CENTER | | | | | | LABORATORY | | + + + + + + | HDL | 39 (L)Comment: <40: | 40 - 59 mg/dL | [facility] | | | | Low40 to 59: | | [facility] | | | | Normal>59: | | HEART | | | | HighHDL Cholesterol | | MEDICAL | | | | greater than or equal to | | CENTER | | | | 60 mg/dL is considered | | LABORATORY | | | | a "negative" risk | | | | | | factor, serving to | | | | | | remove one risk factor | | | | | | from the total count. | | | | + + + + + + | LDL, | 102 (H)Comment: To | <100 mg/dL | [facility] | | | Calculated | calculate 10 year | | [facility] | | | | cardiac risk for this | | HEART | | | | patient, go to | | MEDICAL | | | | [email or web address]. | | CENTER | | | | Click on Testing | | LABORATORY | | | | Information, then on | | | | | | Lipid Calculator. | | | | + + + + + + + + | Specimen | + + | | + + + + + + + | Performing | Address | City/State/Zipcode | Phone Number | | Organization | | | | + + + + + | [facility] | [address] | [place] [address] | | | [facility] | | | | | LABORATORY | | | | + + + + + Basic Metabolic Panel (07/06/2013 12:35 PM PDT) + + + + + + | Component | Value | Ref Range | Performed | Pathologist | | | | | At | Signature | + + + + + + | Na | 139 | 135 - 145 | [facility] | [...] + + + + | Cl | 106 | 99 - 109 mmol/L | [facility] [...] + + + + | Glucose | 99Comment: Tajik | 65 - 99 mg/dL | [facility] [...] + + + + | BUN | 22 | 8 - 25 mg/dL | [facility] | | | | | | [facility] | | | | | | [facility] | | | | | | MEDICAL | | | | | | CENTER | | | | | | LABORATORY | | + + + + + + | Creatinine | 0.96Comment: IDMS | 0.70 - 1.30 | [facility] | | | | traceable creatinine | mg/dL | [facility] | | | | | | HE[facility] | | | | | | MEDICAL | | | | | | CENTER | | | | | | LABORATORY | | + + + + + + | Calcium | 9.6 | 8.5 - 10.2 | [facility] | [...] + + | [facility] | [address] | [place] [address] | | | [facility] | | | | | LABORATORY | | | | + + + + + CBC with Differential (07/06/2013 12:35 PM PDT) + + + + + + | Component | Value | Ref Range | Performed | Pathologist | | | | | At | Signature | + + + + + + | White Blood | 4.7 | 3.8 - 11.0 K/uL | [facility] | | | Cells | | | [facility] | | | | | | HEART | | | | | | MEDICAL | | | | | | CENTER | | | | | | LABORATORY | | + + + + + + | Red Blood | 4.46 | 4.20 - 5.70 | [facility] | | | Cells | | M/uL | [facility] | | | | | | HEART | | | | | | MEDICAL | | | | | | CENTER | | | | | | LABORATORY | | + + + + + + | Hemoglobin | 13.9 | 13.2 - 17.0 | [facility] | | | | | g/dL | [facility] | | | | | | HEART | | | | | | MEDICAL | | | | | | CENTER | | | | | | LABORATORY | | + + + + + + | Hematocrit | 40.4 | 39.0 - 50.0 % | [facility] | | | | | | [facility] | | | | | | [facility] | | | | | | MEDICAL | | | | | | CENTER | | | | | | LABORATORY | | + + + + + + | MCV | 90.5 | 80.0 - 100.0 fL | [facility] | | | | | | [facility] | | | | | | [facility] | | | | | | MEDICAL | | | | | | CENTER | | | | | | LABORATORY | | + + + + + + | MCH | 31.1 | 27.0 - 34.0 pg | [facility] [...] + + + + | RDW-CV | 15.2 | 11.0 - 15.5 % | [facility] | | | | | | [facility] | | | | | | [facility] | | | | | | MEDICAL | | | | | | CENTER | | | | | | LABORATORY | | + + + + + + | Platelet | 265 | 150 - 400 K/uL | [facility] | | | Count | | | [facility] | | | | | | HEART | | | | | | MEDICAL | | | | | | CENTER | | | | | | LABORATORY | | + + + + + + | Differentia | Automated | | [facility] | | | l Type | | | [facility] | | | | | | HEART | | | | | | MEDICAL | | | | | | CENTER | | | | | | LABORATORY | | + + + + + + | % | 56.8 | 40.0 - 75.0 % | [facility] | | | Neutrophils | | | [facility] | | | | | | HEART | | | | | | MEDICAL | | | | | | CENTER | | | | | | LABORATORY | | + + + + + + | % | 32.1 | 15.0 - 48.0 % | [facility] | | | Lymphocytes | | | [facility] | | | | | | HEART | | | | | | MEDICAL | | | | | | CENTER | | | | | | LABORATORY | | + + + + + + | % Monocytes | 9.3 | 0.0 - 12.0 % | [facility] | | | | | | [facility] | | | | | | HE[facility] | | | | | | MEDICAL | | | | | | CENTER | | | | | | LABORATORY | | + + + + + + | % | 1.1 | 0.0 - 7.0 % | [facility] | | | Eosinophils | | | [facility] | | | | | | HEART | | | | | | MEDICAL | | | | | | CENTER | | | | | | LABORATORY | | + + + + + + | % Basophils | 0.7 | 0.0 - 2.0 % | [facility] | | | | | | [facility] | | | | | | [facility] | | | | | | MEDICAL | | | | | | CENTER | | | | | | LABORATORY | | + + + + + + | Absolute | 2.70 | 1.90 - 7.40 | [facility] | | | Neutrophils | | K/uL | [facility] | | | | | | HEART | | | | | | MEDICAL | | | | | | CENTER | | | | | | LABORATORY | | + + + + + + | Absolute | 1.50 | 1.00 - 3.90 | [facility] | | | Lymphocytes | | K/uL | [facility] | | | | | | HEART | | | | | | MEDICAL | | | | | | CENTER | | | | | | LABORATORY | | + + + + + + | Absolute | 0.40 | 0.00 - 0.80 | [facility] | | | Monocytes | | K/uL | [facility] | | | | | | HEART | | | | | | MEDICAL | | | | | | CENTER | | | | | | LABORATORY | | + + + + + + | Absolute | 0.10 | 0.00 - 0.50 | [facility] | | | Eosinophils | | K/uL | [facility] | | | | | | HEART | | | | | | MEDICAL | | | | | | CENTER | | | | | | LABORATORY | | + + + + + + | Absolute | 0.00 | 0.00 - 0.10 | [facility] | | | Basophils | | K/uL | [facility] | | | | | [...] + + | [facility] | [address] | [place] [address] | | | [facility] | | | | | LABORATORY | | | | + + + + + documented in this encounter Visit Diagnoses Not on filedocumented in this encounter
--- OUTSIDE RECORDS SUMMARY | ~2020-06-20 | XMS | Encounter Summary ---
Demographics + + + | Address | [address] | | | [place] [address] | + + + | Home Phone [...] Team Providers + +------+ + | Care Tile Layer Supervisor Name | Role | Phone | [...] [place] | | | | | | [address] | | | | | | | [...] | DERMATOPATH | | | MNT) | [address] CLINICAL | | OLOGY | | | [...] | | | | | | Jr. My electronic | | | | | [...] [facility] | [address] | [place] [address] | | | DERMATOPATHOLOGY | [address] | | | + + + + + | [facility] | [address] | [place] [address] | | | DERMATOPATHOLOGY | [address] | | | + + + + + documented in this encounter Visit Diagnoses Not on filedocumented in this encounter
--- OUTSIDE RECORDS SUMMARY | ~2020-06-20 | XMS | Encounter Summary ---
Demographics + + + | Address | [address] | | | [place] [address] | + + + | Home Phone [...] + | Author | [facility] | | | and [place] | + + + | Organization | [facility] | | [...] [place] | | | | | [address] | | + + + + + | c[facility]ot [facility] | ECON | [address] | | | | | [place] [address] | | + + + + + Care Team Providers + +------+ + | Care Primary Care Sales Representative Name | Role | Phone | + +------+ + | Ralph Chatman MD | PCP | | + +------+ + Encounter Details +--------+ + + + + | Date | Type | Department | Care Team | Description | +--------+ + + + + | 08/17/ | Abstract | [facility] | Eli Rubio, | Aortic valve | | 2012 | | [facility] | 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 | regurgitation | | | | [facility] | | (Primary Dx); | | | | [address] | | Hypertension; | | | | [place] | | Degenerative joint | | | | [address] | | disease; Epidural | | | | [phone] | | abscess | +--------+ + + + + Social [...] [place] | | | | | | [place] [address] | | | | | | [phone] | | | | | | | [...] D | | | | | | [place] [address] | | | | | | [phone] | | | | | | | | +--------+ + + + + documented as of this encounter Visit Diagnoses + + | Diagnosis | + + | Aortic valve regurgitation - Primary Aortic valve disorders | + + | Hypertension Unspecified essential hypertension | + + | Degenerative joint disease Osteoarthrosis, unspecified whether generalized or | | localized, unspecified site | + + | 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
--- OUTSIDE RECORDS SUMMARY | ~2020-06-20 | XMS | Encounter Summary ---
Demographics + + + | Address | [address] | | | [place] [address] | + + + | Home Phone | | + + + | Preferred Language | Unknown | + + + | Marital Status | | + + + | Anglican Affiliation | 1041 | + + + | Race | White | + + + | Ethnic Group | Not or | + + + Author + + + | Author | [facility] | | | and [place] | + + + | Organization | [facility] | | [...] [place] | | | | | [address] | | + + + + + | Scot Damico | ECON | [address] | | | | | [place] [address] | | + + + + + Care Team Providers + +------+ + | Care Joy Operator Helper Name | Role | Phone | + +------+ + | Ralph Chatman MD | PCP | | + +------+ + Encounter Details +--------+ + + + + | Date | Type | Department | Care Team | Description | +--------+ + + + + | 06/25/ | Hospital | [facility] | [facility] Cough | | 2013 | Encounter | MED CTR PULMONARY | Irina Sofia MD | | | | | FUNCTION [address] | | | | | | [place], | | | | | | [place] [address] | | | | | | [phone] | | | +--------+ + + + [...] | | | | | [place] [address] | | | | | | [phone] | | | | | | | [...] | | | [place] [address] | | | | | | [phone] | | | | | | | | +--------+ + + + + documented as of this encounter Visit Diagnoses + + | Diagnosis | + + | Cough | + + documented in this encounter"
--- OUTSIDE RECORDS SUMMARY | ~2020-06-20 | XMS | Encounter Summary ---
Demographics + + + | Address | [address] | | | [place] [address] | + + + | Home Phone [...] [place] | | | | | [address] | | + + + + + | Scot Damico | ECON | [address] | | | | | [place] [address] | | + + + + + Care Team Providers + +------+ + | Care Transporter Driver Name | Role | Phone | + +------+ + | Ralph Chatman MD | PCP | | + +------+ + Encounter Details +--------+ + + + + | Date | Type | Department | Care Team | Description | +--------+ + + + + | 08/26/ | Emergency | [facility] | Olaf Ballesteros, | Visit for wound | | 2016 | | [facility] | MD Mariaa ZEPEDA | check | | | | [facility] | [place] [address] | | | | | [address] | [phone] | | | | | [place], [place] | | | | | | [address] | | | | | | [phone] | | | +--------+ + + + [...] ED Notes Conversion Transaction, Provider Unknown - 08/26/2016 2:46 PM PSTFormatting of this note m ight be different from the original. ED Notes by Dori Martin RN at 08/26/161445 Author: Dori Martin RN Service: (none) Author Type: Registered Nurse Filed: 08/26/161446 Date of Service: 08/26/161445 Status: Signed Deployment Manager: Dori Martin RN (Registered Nurse) Spouse states she is taking pt tomorrow to his pcp to evaluate his htn. Provider is aware. Dori Martin RN 08/26/161446 onver khai Transaction, Provider Unknown - 08/26/2016 2:35 PM PST ED Notes by Dori Martin RN at 08/26/16 7046 Author: Dori Martin RN Service: (none) Author Type: Registered Nurse Filed: 08/26/161434 Date of Service: 08/26/161434 Status: Signed Deployment Manager: Dori Martin RN (Registered Nurse) Dressed wound with telfa, kerlex and omnipore tape as per md's verbal instructions. Pt nolan well. Dori Martin RN 08/26/16 2980 onver khai Transaction, Provider Unknown - 08/26/2016 2:23 PM PST ED Notes by Dori Martin RN at 08/26/16 4732 Author: Dori Martin RN Service: (none) Author Type: Registered Nurse Filed: 08/26/16 8293 Date of Service: 08/26/161422 Status: Signed Deployment Manager: Dori Martin RN (Registered Nurse) Pt arrives w/ clear tagaderm dressing on skin tear to lt arm, which was original dressing p laced 5 days prior. Pt has been changing coban daily due to drainage. removed tagaderm dr ontiveros. Foul smelling liquid noted. Cleansed wound with technicare soap, 250 ml sterile sali ne and soft surgical sponge. Pt nolan very well, states very mild discomfort and has not neede d to take the tramadol prescribed for the pain. Pt has approx 6 cm X 4 cm skin tear to dorsa l mid lt forearm w/ bruising surrounding the tear. No s/s infection noted. Open skin at tear is moist, pink. Pt has mild swelling to wrist and hand. Radial pulse 2+. Pt has full rom marsha Martin RN 08/26/161426 immOlaf spring MD - 08/26/2016 2:13 PM PSTFormatting of this note might be different from the o riginal. ED Provider Notes by Olaf Ballesteros MD at 08/26/164 Author: Olaf Ballesteros MD Service: (none) Author Type: Physician Filed: 08/30/16 6417 Date of Service: 08/26/161412 Status: Signed Deployment Manager: Olaf Ballesteros MD (Physician) [facility] Department of Emergency Medicine 2:13 PM History of Present Illness Patient Identification Iraida Damico is a 81 y.o. male. Patient information was obtained from patient and spouse/partner. History/Exam limitations: none. Patient presented to the Emergency Department by: Car Chief Complaint Chief Complaint Patient presents with Wound Check lt arm, [facility]. "still oozing terribly" per spouse This is a 81 y.o. male with chief complaint of arm wound. Onset of symptoms was 08/21/2016 , with a constant course since that time. The symptoms are currently described to be of mil d to moderate severity. Patient was here on 08/21/2016 when the car trunk fell on his left f orearm. Patient reports that he had a skin tear with bruising which does not seem to be impr oving and has some discharge. Pt denies fever, chills, cough, SOB, chest pain, or any other symptoms at this time. 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 Other significant factors in the PMH are noted and include: None PCP: CANDI CHATMAN Past Medical History Diagnosis Date COPD (chronic obstructive pulmonary disease) (HCC) Past Surgical History Procedure Laterality Date Aortic valve replacement Replacement total knee Right Back surgery Pacemaker insertion Prior to Admission medications Medication Sig Start Date End Date Taking? Authorizing Provider acetaminophen (TYLENOL) 500 MG tablet Take 500 mg by mouth every 6 (six) hours as needed fo r Pain. Historical Provider acetaminophen (TYLENOL) 500 MG tablet Take 2 tablets by mouth every 6 (six) hours as needed for Pain or Fever. Do not take more than 8 in a 24 hour period 08/21/16 08/31/16 AYDIN Parkinson traMADol (ULTRAM) 50 MG tablet Take 1 tablet by mouth every 6 (six) hours as needed for Yocasta n. Do not exceed 8 in a 24 hour period 08/21/16 08/26/16 AYDIN Anderson Allergies Allergen Reactions Lisinopril Cough Cough Social History Social History Marital Status: Spouse Name: N/A Number of Children: N/A Years of Education: N/A Occupational History Not on file. Social History Main Topics Smoking status: Never Smoker Smokeless tobacco: Never Used Alcohol Use: Yes Comment: weekly Drug Use: No Sexual Activity: Not on file Other Topics Concern Not on file Social History Narrative History reviewed. No pertinent family history. Review of Systems Review of Systems Constitutional: Negative for fever and chills. HENT: Negative for sore throat. Respiratory: Negative for cough. Cardiovascular: Negative for chest pain. Gastrointestinal: Negative for nausea. Genitourinary: Negative for dysuria. Musculoskeletal: Negative for myalgias. Skin: Left forearm wound. All other systems reviewed and are negative. Physical Exam BP 179/81 mmHg | Pulse 80 | Temp(Src) 97.7 F (36.5 C) (Oral) | Resp 16 | SpO2 100% Vitals: Elevated blood pressure. Otherwise normal. Pulse Oximetry Interpretation: Normal General: Alert, in no acute distress, non-toxic Head: Normocephalic. Atraumatic. Eyes: Normal inspection, pupils equal and round, non-icteric, EOM full ENT: Ears and nose normal external inspection Pharynx normal Moist mucous membranes, pink appearing Neck: Normal inspection Supple No lymphadenopathy. No JVD CVS: Rate and rhythm normal No Bruits. No murmurs Respiratory: Breath sounds normal bilaterally, normal chest rise and fall, no obvious traum a Abdomen: Soft, non-distended, Bowel sounds unremarkable. CVA's non-tender. No guarding or r ebound. No masses. No hernias. Rectal deferred Back: No point tenderness. Moves without difficulty Extremities: Moves all extremities without pain or restriction. No obvious deformity. Well perfused. No calf tenderness No leg swelling Skin: 3-4 cm left forearm dorsal skin tear. Dermis is intact. Moderate foul smelling draina ge but underlying skin looks healthy after cleaning. No cellulitis. Neuro: No gross motor/sensory deficits noted. No facial asymmetry Medical Decision Making and Emergency Department Course ED Department Course 2:13 PM Pt presents to the ED complaining of wound check. On exam, pt has a 3-4 cm left fo rearm dorsal skin tear. Dermis is intact. Moderate foul smelling drainage but underlying ski n looks healthy after cleaning. No cellulitis. 2:45 PM Patient stable. I have discussed my clinical impression and treatment plan with th e pt. We have specifically discussed the signs and symptoms that would constitute the need f or an immediate return to the ED, the importance of continued outpatient f/u and the importa nce of compliance with the d/c instructions. I have answered any questions that the pt has t o the best of my ability. Based upon the pt s history, physical exam, ED course, and diagn ostic studies, I feel that there is no current emergent medical condition that warrants admi ssion, transfer, or further ED treatment at this time. Medications - No data to display Filed Vitals: 08/26/16 1409 BP: 179/81 Pulse: 80 Temp: 97.7 F (36.5 C) TempSrc: Oral Resp: 16 SpO2: 100% Records Reviewed Old medical records. Nursing notes. Laboratory Evaluation Results None I personally reviewed the lab results and they have been posted to the chart. Pertinent po sitive and negative findings have been addressed appropriately. Radiology and EKG Evaluation Imaging Results None ED Diagnosis Final diagnosis Visit for wound check Disposition: ED Disposition Discharge Condition at discharge: Stable Follow-up Information Follow up With Details Comments Contact [facility] Emergency Department in [place] If symptoms worsen [address] [facility] [address] Candi Chatman MD In 1 week For follow up [address] [address] Discharge Medications: Discharge Medication List as of 08/26/2016 2:42 PM Olaf Ballesteros MD Procedures Additional Documentation Procedures Attending Note: Documentation assistance provided by Niya Guerra (Scribe). Information recorded by the scribe has been reviewed and validated by . Keith islas with its contents. Olaf Ballesteros MD 08/30/16 1357 documented in this e ncounter Plan of Treatment +--------+ + + + + | Date | Type | Specialty | Care Team | Description | +--------+ + + + + | 06/23/ | Office | Cardiology | Rowdy Haines | | | 2019 | Visit | | MD Jamarc[address] | | | | | | [address] | | | | | | [place] [address] | | | | | | [phone] | | | | | | | [...] | | | [place] [address] | | | | | | [phone] | | | | | | | | +--------+ + + + + documented as of this encounter Visit Diagnoses + + | Diagnosis | + + | Visit for wound check Encounter for other specified aftercare | + + documented in this encounter
--- OUTSIDE RECORDS SUMMARY | ~2020-06-20 | XMS | Encounter Summary ---
Demographics + + + | Address | [address] | | | [place] [address] | + + + | Home Phone | | + + + | Preferred Language | Unknown | + + + | Marital Status | Single | + + + | Uatsdin Affiliation | CAT | + + + [...] Team Providers + +------+ + | Care Cripple Cutter Name | Role | Phone | + [...] | | | | LUMBOSACRAL | Bambi SORENSEN, | | | | | 2 VIEWS | M.D.-Radiologist 2: | | | | | | Bambi BARRERA, | | | | | | M.D.STUDY: A.P. lateral | | | | | | [...] | + + + + + | [facility] | [address] | [place] [address] | | | PATHOLOGY | [address] | | | + + + + + | [facility] | [address] | [place] [address] | | | PATHOLOGY | [address] [...] + + + | [facility] | [address] | [place] [address] | | | LABORATORY | | | [...] + | [facility] DEPARTMENT OF | [address] [facility] | [place] [address] | | | PATHOLOGY | [address] | | | + + + + + | [facility] DEPARTMENT OF | [address] [facility] | [place] [address] | | | PATHOLOGY | [address] [...] | + + + + + | [facility] | [address] [facility] | [place] [address] | | | PATHOLOGY | [address] | | | + + + + + | [facility] DEPARTMENT OF | [facility] [facility] | [place] [address] | | | PATHOLOGY | [address] [...] | + + + + + | [facility] | [address] | [place] [address] | | | PATHOLOGY | [address] | | | + + + + + | [facility] | [address] [facility] | [place] [address] | | | PATHOLOGY | [address] | | | + + + + + documented in this encounter Visit Diagnoses Not on filedocumented in this encounter"
--- OUTSIDE RECORDS SUMMARY | ~2020-06-20 | XMS | Encounter Summary ---
Demographics + + + | Address | [address] | | | [place] [address] | + + + | Home Phone [...] + + + | Author | [facility] | | | and [place] | + + + | Organization | [facility] | | | and [place] | + + + | Address | Unknown | + + + | Phone | Unavailable | + + + Support + + + + + | Name | Relationship | Address | Phone | + + + + + | aJdyn Damico | ECON | [address] | | | | | [place] | | | | | [address] | | + + + + + | Scot Damico | ECON | [address] | | | | | [place] [address] | | + + + + + Care Team Providers + +------+ + | Care Shoe Repairer Helper Name | Role | Phone | + +------+ + PCP | Unavailable | + +------+ + Encounter Details +--------+ + + + + | Date | Type | Department | Care Team | Description | +--------+ + + + + | 04/20/ | Hospital | [facility] | | | | 2007 | Encounter | MED CTR XRAY [address] | | | | | | [place] | | | | | | [place] [address] | | | | | | [phone] | | | +--------+ + + + [...] | | | | | [place] [address] | | | | | | [phone] | | | | | | | [...] | | | [place] [address] | | | | | | [phone] | | | | | | | | +--------+ + + + + documented as of this encounter Visit Diagnoses Not on filedocumented in this encounter"
--- OUTSIDE RECORDS SUMMARY | ~2020-06-20 | XMS | Encounter Summary ---
Demographics + + + | Address | [address] | | | [place] [address] | + + + | Home Phone | | + + + | Preferred Language | Unknown | + + + | Marital Status | Single | + + + | Hindu Affiliation | CAT | + + + [...] Team Providers + +------+ + | Care Treatment Supervisor Name | Role | Phone | + +------+ + PCP | Unavailable | + +------+ + Encounter Details +--------+ + + + + | Date | Type | Department | Care Team | Description | +--------+ + + + + | 11/25/ | Results | | Other, Faculty | | | 2003 | Only | | [phone] | | +--------+ + + + + [...] | + + + + + | [facility] | [address] [facility] | [place] [address] | | | PATHOLOGY | [address] | | | + + + + + | [facility] DEPARTMENT | [address] [facility] | [place] [address] | | | PATHOLOGY | [address] [...] + | Ordered by HEMANT DELVALLE | [facility] | | | DEPARTMENT OF | | | PATHOLOGY | + + + + + + + + | Performing | Address | City/State/Zipcode | Phone Number | | Organization | | | | + + + + + | [facility] DEPARTMENT OF | [address] | [place] [address] | | | PATHOLOGY | [address] | | | + + + + + | [facility] DEPARTMENT OF | [address] | [place] [address] | | | PATHOLOGY | [address] [...] | | | | | | No organisms seen. | | | | | | Culture: 1+ | | | | | | Propionibacterium sp. | | | | | | | | | | | | | | | | | | Final ID Gram | | | | | | positive bacilli | | | | | | | | | | | | Prelim | | | | | | ID Preliminary | | | | | | Report: Culture | | | | | | Received, No growth to | | | | | | date. Final | | | | | | Report | | | | + + + + + + + + | Specimen | + + | | + + + + + | Narrative | Performed At | + + + | Ordered by AL ODOM | | + + + + + + + + | Performing | Address | City/State/Zipcode | Phone Number | | Organization | | | | + + + + + | [facility] | [address] | [place] [address] | | | LAB-MICRO | | | [...] | | | | | | No Epithelial cells | | | | | | | | | | | | No | | | | | | organisms seen. | | | | | | Culture: | | | | | | Preliminary Report: | | | | | | Culture Received, No | | | | | | growth to date. | | | | | | Final Report: No | | | | | | growth after 72 hours | | | | | | Final Report | | | | + + + + + + + + | Specimen | + + | | + + + + + | Narrative | Performed At | + + + | Ordered by ACLPATRICIA ILNEE | | + + + + + + + + | Performing | Address | City/State/Zipcode | Phone Number | | Organization | | | | + + + + + | [facility] | [address] | [place] [address] | | | LAB-MICRO | | | | + + + + + documented in this encounter Visit Diagnoses Not on filedocumented in this encounter"
--- OUTSIDE RECORDS SUMMARY | ~2020-06-20 | XMS | Clinical Summary ---
Demographics + + + | Address | [address] | | | [place] [address] | + + + | Home Phone [...] Team Providers + +------+ + | Care Retail Sales Associate Seasonal Name | Role | Phone | + +------+ + PCP | Unavailable | + +------+ + Source Comments MELVIN is fully live on both [facility] and [facility] InPatient.[facility] Allergies No Known Allergies Medications Not [...] + + + Last Filed Vital Signs Not on file Plan of Treatment + + +-------+ + | Health Maintenance | Due Date | Last | Comments | | | | Done | | + + +-------+ + | Pneumococcal | | | | | vaccination (1 of 1 | 0 | | | | - PPSV23) | | | | + + +-------+ + | Influenza (Flu) | | | | | vaccination (#1) | 0 | | | + + +-------+ + Results Not on filefrom Last 3 [...] + +--------+ | MEDICARE | MEDICA | [id number] | 7/1/20 | [phone] | [address] | [address] | | | RE A & | | 00-Pre | 1 | [address] | [address] | | | B | | sent | | [place], [place] | | | | | | | | [address] | | + +--------+ +--------+ + +--------+ | [employer]CIAL [employer] | COMMER | [id number] | Effect | | | Indemn | [...] | Self | [birth year] | [address] | | | al/Fam | | 1935 | [phone] | [place] [address] | | | isa | | | 8 (Home) | | + +--------+ +--------+ + +"
--- OUTSIDE RECORDS SUMMARY | ~2020-06-20 | XMS | Encounter Summary ---
Demographics + + + | Address | [address] | | | [place] [address] | + + + | Home Phone [...] [place] | | | | | [address] | | + + + + + | Scot Damico | ECON | [address] | | | | | [place] [address] | | + + + + + Care Team Providers + +------+ + | Care Spa Manager Name | Role | Phone | + +------+ + | Milvia Snyder MD | PCP | | + +------+ + Reason for Visit +---------+ + | Reason | Comments | +---------+ + | Results | [facility] | +---------+ + Encounter Details +--------+ + + + + | Date | Type | Department | Care Team | Description | +--------+ + + + + | 05/03/ | Documentati | [facility] | Cristy Goodwinalena, | Results ([facility] | | 2020 | on | NEUROLOGY [address] | lab) | | | | [address] | [facility] [address] | | | | | [place], [place] | [place] [address] | | | | | [address] | [phone] | | | | | [phone] | | | +--------+ + + + [...] documented as of this encounter Progress Notes Nika Lomas CMA - 05/03/2020 9:40 AM PDTLabs received from [facility]. Re viewed by Dr. Goodwin. Received: CMP, CBC, Protime/INR and sent to scan CSN [id number] Histo rical visit scan docume nted in this encounter Plan of Treatment +--------+ + + + + | Date | Type | Specialty | Care Team | Description | +--------+ + + + + | 06/23/ | Office | Cardiology | Rowdy Haines | | 2019 | Visit | | MD Gabriel Ricketts | | | | | | [address] | | | | | | [place] [address] | | | | | | [phone] | | | | | | | [...] | | | [place] [address] | | | | | | [phone] | | | | | | | | +--------+ + + + + documented as of this encounter Visit Diagnoses Not on filedocumented in this encounter"
--- OUTSIDE RECORDS SUMMARY | ~2020-06-20 | XMS | Encounter Summary ---
Demographics + + + | Address | [address] | | | [place] [address] | + + + | Home Phone [...] [place] | | | | | [address] | | + + + + + | Scot Damico | ECON | [address] | | | | | [place] [address] | | + + + + + Care Team Providers + +------+ + | Care Vacuum Cooker Operator Name | Role | Phone | [...] Sofia MD | | | | | [place], | | | | | | [place] [address] | | | | | | [phone] | | | +--------+ + + + [...] | | | | | | [place] [address] | | | | | | [phone] | | | | | | | [...] [place] | | | | | | [place] [address] | | | | | | [phone] | | | | | | | | +--------+ + + + + documented as of this encounter Procedures + +--------+ + + + | Procedure Name | Priori | Date/Time | Associated Diagnosis | Comments | | | ty | | | | + +--------+ + + + | EXTERNAL LAB: BUN | Routin | 06/28/2015 | | Results [...] | + +---------+ + + External Lab: [facility] (06/28/2015) + + + + + + [...]
--- OUTSIDE RECORDS SUMMARY | ~2020-06-20 | XMS | Encounter Summary ---
Demographics + + + | Address | [address] | | | [place] [address] | + + + | Home Phone | | + + + | Preferred Language | Unknown | + + + | Marital Status | Single | + + + | Methodist Affiliation | CAT | + + + [...] Team Providers + +------+ + | Care Whale Fisherman Name | Role | Phone | + [...] as of this encounter Discharge Summaries Interface, Head Animal Trainer In - 2005 6:08 PM PDTAdmission Date: 11/24/2003 Discharge Date: 12/01/2003 ATTENDING PHYSICIAN: Maria C Vences M.D. PRINCIPAL FINAL DIAGNOSIS: L3-4 epidural abscess/inflammatory tissue. ADDITIONAL DIAGNOSIS: 1. Anemia. 2. E Faecalis positive blood cultures from [facility]. PRINCIPAL PROCEDURE: L3 through 4 total laminectomy. Bilateral L3 to L4 and L4 to L5 foraminotomies. ADDITIONAL PROCEDURES: 1. November 27, 2003, PICC line placement. 2. Infectious disease consult. 3. Physical therapy/occupational therapy. 4. Postoperative x-ray November 28, 2003. HISTORY OF PRESENT ILLNESS: This is a 69-year-old man who presented to [facility] after several days of fevers and excruciating [...] never shown signs of radicular pain. At [facility], blood was drawn on November 22, which grew E fecalis. His white count was 30,000. Hematocrit started at 34 and drifted down into the high 20s by the time of discharge from [facility], with iron level, and high reticulocyte count. MRI of the lumbar spine showed a large epidural abscess from L2 to S1. At this point, the decision was made to transfer this patient to [facility] for surgery with Maria C Vences [...] positive blood culture for E fecalis at [facility], infectious disease recommended colonoscopy as an outpatient. [...] was quite painful. They recommended transfer to fpc facility for further mobilization. The patient was [...] primary care provider, Arturo Marcum, phone number [phone] and fax number [phone]. Tabby Deisseroth, M.Angel Vences M.D. Attending Physician KD:[email or web address] D: 11-30-2003 T: 11-30-2003 C: 12/02/2003 cr PLEASE FAX: [phone] signed by Interface, Head Animal Trainer In at 2005 6:08 PM PDTdocumented in this encounter Plan of Treatment Not on filedocumented as of this encounter Visit Diagnoses Not on filedocumented in this encounter"
--- OUTSIDE RECORDS SUMMARY | ~2020-06-20 | XMS | Encounter Summary ---
Demographics + + + | Address | [address] | | | [place] [address] | + + + | Home Phone [...] + + + | Author | [facility] | | | and [place] | + + + | Organization | [facility] | | [...] [place] | | | | | [address] | | + + + + + | Scot Damico | ECON | [address] | | | | | [place] [address] | | + + + + + Care Team Providers + +------+ + | Care Bioinformatics Specialist Name | Role | Phone | + +------+ + PCP | Unavailable | + +------+ + Encounter Details +--------+ + + + + | Date | Type | Department | Care Team | Description | +--------+ + + + + | 11/15/ | Hospital | [facility] | | | | 1995 | Encounter | MED [facility] OP REHAB | | | | | | [address] [place] | | | | | | [place] [address] | | | | | | [phone] | | | +--------+ + + + [...] | | | | | [place] [address] | | | | | | [phone] | | | | | | | [...] | | | [place] [address] | | | | | | [phone] | | | | | | | | +--------+ + + + + documented as of this encounter Visit Diagnoses Not on filedocumented in this encounter"
--- OUTSIDE RECORDS SUMMARY | ~2020-06-20 | XMS | Encounter Summary ---
Demographics + + + | Address | [address] | | | [place] [address] | + + + | Home Phone [...] [place] | | | | | [address] | | + + + + + | Scot Damico | ECON | [address] | | | | | [place] [address] | | + + + + + Care Team Providers + +------+ + | Care Forklift Wheel Loader Name | Role | Phone | + +------+ + | Ralph Chatman MD | PCP | | + +------+ + Encounter Details +--------+ + + + + | Date | Type | Department | Care Team | Description | +--------+ + + + + | 03/21/ | Orders Only | [facility] | Dante Mckee | | | 2004 | | [facility] | MD Neha [address] | | | | | LABORATORY [address] | [place] | | | | | [address] [place] [place], [place] | [address] | | | | | [address] | | | | | | [phone] | | | +--------+ + + + [...] | | | | | [place] [address] | | | | | | [phone] | | | | | | | [...] D | | | | | | [place] [address] | | | | | | [phone] | | | | | | | [...] + + + | HEMATOPATHOLOGY REPORT | [facility] | | Date Taken: 03/21/2005 Date Received: | | | 03/21/2005 Completed: 03/23/2005 Physician: DANTE MCKEE | | | DIAGNOSIS: Normal bone [...] Morphology: - PAML [address] | | | [place], [place] [address] or | | | Testing performed at: [facility] | | | Laboratory Alberto Najera M.D., Director [address] [place] [address] | | | [address] [place] [address] | | + + + + + + + + | Performing | Address | City/State/Zipcode | Phone Number | | Organization | | | | + + + + + | [facility] | [address] | [place] [address] | | | [facility] | | | | | LABORATORY | | | | + + + + + | [place] | | | | + + + + + documented in this encounter Visit Diagnoses Not on filedocumented in this encounter"
--- OUTSIDE RECORDS SUMMARY | ~2020-06-20 | XMS | Encounter Summary ---
Demographics + + + | Address | [address] | | | [place] [address] | + + + | Home Phone [...] [place] | | | | | [address] | | + + + + + | Scot Damico | ECON | [address] | | | | | [place] [address] | | + + + + + Care Team Providers + +------+ + | Care Regulatory Compliance Specialist Name | Role | Phone | + +------+ + PCP | Unavailable | + +------+ + Encounter Details +--------+ + + + + | Date | Type | Department | Care Team | Description | +--------+ + + + + | 07/06/ | Hospital | [facility] | | | | 2007 | Encounter | MED CTR XRAY [address] | | | | | | [place] | | | | | | [place] [address] | | | | | | [phone] | | | +--------+ + + + [...] | | | | | [place] [address] | | | | | | [phone] | | | | | | | [...] | | | [place] [address] | | | | | | [phone] | | | | | | | | +--------+ + + + + documented as of this encounter Visit Diagnoses Not on filedocumented in this encounter"
--- OUTSIDE RECORDS SUMMARY | ~2020-06-20 | XMS | Encounter Summary ---
Demographics + + + | Address | [address] | | | [place] [address] | + + + | Home Phone | | + + + | Preferred Language | Unknown | + + + | Marital Status | | + + + | Scientology Affiliation | 1041 | + + + | Race | White | + + + | Ethnic Group | Not or | + + + Author + + + | Author | [facility] | | | and [place] | + + + | Organization | [facility] | | | [...] [place] | | | | | [address] | | + + + + + | Scot Damico | ECON | [address] | | | | | [place] [address] | | + + + + + Care Team Providers + +------+ + | Care Diplomatic Officer Name | Role | Phone | [...] | | | | | | [place] [address] | | | | | | [phone] | | | +--------+ + + + [...] (HCC) after knee surgery Melanoma (HCC) 2009, 2011 x 3 COPD (chronic obstructive pulmonary disease) [...] Objective CPAP Data Dates: 01/17/15-01/23/15 Machine type: AFAR 10 [facility]: In Home [...] [address] | | | | | | [place] [address] | | | | | | [phone] | | | | | | | [...] | | | [place] [address] | | | | | | [phone] | | | | | | | | +--------+ + + + + documented as of this encounter Visit Diagnoses Not on filedocumented in this encounter"
--- OUTSIDE RECORDS SUMMARY | ~2020-06-20 | XMS | Encounter Summary ---
Demographics + + + | Address | [address] | | | [place] [address] | + + + | Home Phone | | + + + | Preferred Language | Unknown | + + + | Marital Status | Single | + + + | Sabianism Affiliation | CAT | + + + | Race | White | + + + | Ethnic Group | Not or | + + + Author + + + | Author | [facility] | + + + | Organization | [facility] | + + + | Address | Unknown | + + + | Phone | Unavailable | + + + Support + + +---------+ + | Name | Relationship | Address | Phone | + + +---------+ + | Elizabeth Damico | ECON | Unknown | | + + +---------+ + Care Team Providers + +------+ + | Care Steam Conditioner Filling Name | Role | Phone | + +------+ + PCP | Unavailable | + +------+ + Encounter Details +--------+ + + + + | Date | Type | Department | Care Team | Description | +--------+ + + + + | / | Results | Registration [address] | Dasia [address] | | | 2007 | Only | [address] | [phone] | | | | | Rd Mailcode: [id number] | | | | | | [place], [place] | | | | | | [address] | | | | | | [phone] | | | +--------+ + + + [...] | | | | | MNT) | [address] CLINICAL | | | | | | [...] [facility] | [address] | [place] [address] | | | DERMATOPATHOLOGY | [address] | | | + + + + + documented in this encounter Visit Diagnoses Not on filedocumented in this encounter"
--- OUTSIDE RECORDS SUMMARY | ~2020-06-20 | XMS | Encounter Summary ---
Demographics + + + | Address | [address] | | | [place] [address] | + + + | Home Phone [...] [place] | | | | | [address] | | + + + + + | Scot Damico | ECON | [address] | | | | | [place] [address] | | + + + + + Care Team Providers + +------+ + | Care Mononitrotoluene Operator Name | Role | Phone | + +------+ + | Milvia Snyder MD | PCP | | + +------+ + Reason for Visit + +--------+ + | Reason | Onset | Comments | | | Date | | + +--------+ + | Appointment | 05/11/ | | | | 2019 | | + +--------+ + Encounter Details +--------+ + + + + | Date | Type | Department | Care Team | Description | +--------+ + + + + | 05/11/ | Telephone | [facility] | Rowdy Haines | Appointment | | 2019 | | CARDIOLOGY [place] | MD [address] | | | | | [address] | [address] | | | | | [place], [place] | [place] [address] | | | | | [address] | [phone] | | | | | [phone] | | | +--------+ + + + [...] Notes Telephone Encounter - Arabella Coy - 05/11/2020 9:06 AM PDT2nd attempt to schedule p t w/ EP. Left msg for pt to call back. Arabella Coy documented in this enc ounter [...] | | | | | [place] [address] | | | | | | [phone] | | | | | | | [...] | | | [place] [address] | | | | | | [phone] | | | | | | | | +--------+ + + + + documented as of this encounter Visit Diagnoses Not on filedocumented in this encounter"
--- OUTSIDE RECORDS SUMMARY | ~2020-06-20 | XMS | Encounter Summary ---
Demographics + + + | Address | [address] | | | [place] [address] | + + + | Home Phone | | + + + | Preferred Language | Unknown | + + + | Marital Status | | + + + | Religion Affiliation | 1041 | + + + | Race | White | + + + | Ethnic Group | Not or | + + + Author + + + | Author | [facility] | | | and [place] | + + + | Organization | [facility] | | [...] [place] | | | | | [address] | | + + + + + | Scot Damico | ECON | [address] | | | | | [place] [address] | | + + + + + Care Team Providers + +------+ + | Care Metal Bonding Press Operator Name | Role | Phone | + +------+ + PCP | Unavailable | + +------+ + Encounter Details +--------+ + + + + | Date | Type | Department | Care Team | Description | +--------+ + + + + | 11/21/ | Hospital | [facility] | Zeferino Reeves, | | | 2009 | Encounter | [facility] | MD [address] | | | | | CONVERSION | [address] | | | | | DEPART[address] | [place] [address] | | | | | [address] | [phone] | | | | | [place], [place] | | | | | | [address] | | | | | | [phone] | | | +--------+ + + + [...] documented as of this encounter H&P Notes Zeferino Reeves MD - 08/12/2013 8:09 AM PST DATE OF ADMISSION: 11/21/2009 CHIEF COMPLAINT: Preoperative history and physical for L2-3 XLIF with iliac crest aspirati on, MAS posterior spinal fusion with posterior instrumentation L2-3 and NeuroVision monitor ing. HISTORY OF PRESENT ILLNESS: This is a pleasant 74-year-old who, back in August 2003, und erwent diagnostic arthroscopy of the right knee and eventually ended up with an epidural ab scess, which he was taken to the operating room back in 2003 and underwent an L3-4 fusion. This was done in [place]. After a long recovery he started feeling better with diminished p ain, however his pain in his back continually progressively got a little bit worse with bi lateral hip pain causing significant dysfunction in his life. He was noted to start leaning more to the right and it was causing significant dysfunction in his life. He was seen by Iona Reeves at the request of Dr. Barboza back in October 2008. 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 He was sent for a SPECT bone scan, which did light up at L- as well as slightly at L3-S1 as well as a CT, which showed completion of the auto fus ion L3-S1. He was sent for L2-3 CT guided facet blocks as a result of the CT. The first one gave him 80% relief of his pain in his back and hip and leg pain, lasting about 2 to 3 wee ks with slow return to baseline. The second did not give him any notable relief. Surgical intervention was recommended and as such he is being admitted, taken to the operating room for the above-stated procedure. 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 He also suffers from aortic insufficiency for which he sees Dr. Isabel and has seen him on a yearly basis; last seen in April. He had a yearly echo done a t that time, which showed no progression of his insufficiency and at this time he is essent ially asymptomatic with no exercise intolerance, palpitations, or signs of congestive fail ure. Asthma and epidural abscess secondary to knee arthroscopy and auto fusion L3-S1. Mild BPH with nocturia. PAST SURGICAL HISTORY: Significant for diagnostic right knee arthroscopy in 2004 with seco ndary epidural abscess and a L3-S1 emergency laminectomy and decompression in 2004 and a ri ght total knee arthroplasty in 2005. No anesthetic complication. CURRENT MEDICATIONS: Consist of Cozaar 100 mg p.o. daily. He has no known drug allergies. FAMILY HISTORY: Significant for mother with cancer. 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 He does not smoke. Drinks about 3 to 4 glasses of wine per week. No drug us e. Plans to return home to be cared for by his postoperatively. GERTRUDIS DAMICO : 35 | Signed MR# [id number] ACCT# [id number] | ADM DS REG SDC | Zeferino Reeves MD | [facility] ES: B R pt [phone] | HISTORY & PHYSICAL THIS REPORT IS CONFID ENTIAL AND NOT TO BE RELEASED WITHOUT PROPER AUTHORIZATION. REVIEW OF SYSTEMS: CONSTITUTIONAL: Negative for weight change, fever, fatigue or night sweats. HEENT: Does have hearing loss, without aids. No blind spots. No chronic sinus problems. No dentures. CARDIOVASCULAR: Negative for chest pain, palpitations, orthopnea or PND. No exercise intol erance. No congestive failure. RESPIRATORY: Negative for cough, shortness of breath, exercise intolerance or lower extrem ity edema. No claudication symptoms. GI: Significant for rare reflux. No chronic nausea, vomiting, melena, hematochezia. No chr onic diarrhea. No history of hepatitis. : Negative for dysuria, though he does have occas ional nocturia 2 to 3 times per night. The rest of the review of systems is noncontributory. PHYSICAL EXAMINATION: GENERAL: The patient is alert, thin. He does stand leaning to the right, but in no acute d istress. VITAL SIGNS: He is 5 foot 10, 185 pounds. Blood pressure 108/62, pulse of 82 and regular, respirations 12, temperature 98.2. SKIN: Warm, dry. No rash. Good turgor. HEENT: Head normocephalic, atraumatic. No sinus tenderness. Eyes are symmetrical. Conjunct tony pink and moist. Sclera anicteric. The rest of HEENT within normal limits. Gross hearing is intact. NECK: Supple, symmetrical. No appreciable lymphadenopathy, thyromegaly or nodules. Thyroid is nontender. Carotid pulses 2+, no bruits, no JVD. Trachea midline and mobile. Posterior neck nontender. CHEST: Symmetrical. HEART: Regular S1, S2 with a 2-3/6 crescendo decrescendo murmur, best heard in the aortic rate slightly up into the manubrium. LUNGS: With good air entry. Clear to auscultation. BACK: Symmetrical with obvious right concave scoliosis centered at L2-3 where he is most t fiorella. Well-healed surgical scar in the low back; no signs of infection. ABDOMEN: Soft, flat, normoactive bowel sounds. No tenderness, mass, hepatosplenomegaly. No abdominal bruits noted. /RECTAL: Deferred. EXTREMITIES: Upper extremities with age-appropriate muscle tone. Degenerative changes in t he hands, but otherwise neurovascularly intact with full range of motion. Lower extremities are without atrophy. Hip flexion-extension, abduction/adduction, quads, hamstrings, ankle dorsi and plantar flexion, all muscle strength 5/5. He does have some trace edema in his le gs, 1+ on the right, trace on the left extending up into the mid lower leg on the right. D orsalis pedis is 2+. Good capillary refill. DTRs are 2+ patellar, trace Achilles. No clonus . Sensation is intact over all dermatomes. NEURO: The patient is alert, oriented. Speech, m lana, affect are appropriate. Cranial nerves II through XII are intact. The rest of the ne uro exam essentially nonfocal. LABS: Pending. GERTRUDIS DAMICO : 35 | Signed MR# [id number] ACCT# [id number] | ADM DS REG SDC | Zeferino Reeves MD | [facility] ES: B R pt [phone] | HISTORY & PHYSICAL THIS REPORT IS CONFID ENTIAL AND NOT TO BE RELEASED WITHOUT PROPER AUTHORIZATION. ASSESSMENT: 1. 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 2. Adult scoliosis. 3. Moderate spinal stenosis, 2-3 with listhesis. 4. Chronic anemia, resolved. 5. Aortic insufficiency, stable and asymptomatic. 6. Asthma. 7. Epidural abscess, status post knee scope requiring emergency L3 through S1 decompressio n. 8. Mild BPH with nocturia. 9. Hearing loss. PLAN: At this time, pending labs, I see no contraindication. Will proceed as scheduled. Th e patient does have aortic insufficiency, however it is essentially unchanged; he is asympt omatic. We will closely monitor for signs of fluid overload during his hospitalization. Oth erwise he does have a history of chronic anemia; will monitor that with daily CBCs. He also has asthma, and we will have him on nebulized treatments. Family is concerned with his in fection post scope. They will be given antibiotics pre- and postoperative; this is discusse d. We will maintain all other meds in-house. Return per hospital discharge recommendations. Dictated by: POOANM Govea MD AGT:[email or web address] Job ID:[id number] Doc ID:[id number] cc: Zeferino Reeves MD, <Dictator> Electronically Signed 11/30/09 0952 Zeferino Reeves MD GERTRUDIS DAMICO : 35 | Signed MR# [id number] ACCT# [id number] | ADM DS REG SDC | Zeferino Reeves MD | [facility] ES: B R pt [phone] | HISTORY & PHYSICAL THIS REPORT IS CONFID ENTIAL AND NOT [...] | | | | | [place] [address] | | | | | | [phone] | | | | | | | [...] | | | [place] [address] | | | | | | [phone] | | | | | | | [...] + + + | Exam Performed Location: [facility] | MISCELANIOUS | | RADIOGRAPHS OF [...] 07/31/2013 8:51 PM PDT Exam Performed Location: [facility] | | [facility] CHESTCLINICAL INFORMATION:Pre operative for [...] + | MISCELLANEOUS LAB | | | [phone] | + +---------+ + + | MISCELANIOUS LAB | | | [phone] | + +---------+ + + documented in this encounter Visit Diagnoses Not on filedocumented in this encounter"
--- OUTSIDE RECORDS SUMMARY | ~2020-06-20 | XMS | Encounter Summary ---
Demographics + + + | Address | [address] | | | [place] [address] | + + + | Home Phone [...] [place] | | | | | [address] | | + + + + + | Scot Damico | ECON | [address] | | | | | [place] [address] | | + + + + + Care Team Providers + +------+ + | Care Student Ministry Pastor Name | Role | Phone | + +------+ + PCP | Unavailable | + +------+ + Encounter Details +--------+ + + + + | Date | Type | Department | Care Team | Description | +--------+ + + + + | 07/07/ | Hospital | [facility] | Mio Hughes, | | | 2011 - | Encounter | MED CTR XRAY [address] | MD [address] | | | | | [place] | [address] [place] [employer], | | | 07/09/ | | [place] [address] | [place] [address] | | | 2011 | | [phone] | [phone] | | | | | | | [...] | | | | | | [place] [address] | | | | | | [phone] | | | | | | | | +--------+ + + + + | 06/23/ | Procedure | Cardiology | | | | 2019 | visit | | | | +--------+ + + + + | 07/06/ | Office | Neurology | AnastasiyarandeeCristyalena, | | | 2019 | Visit | | MD Gabriel [address] | | | | | | [address] | | | | | | [place] [address] | | | | | | [phone] | | | | | | | [...] Performed At | + + + | [facility] | [facility] | | Department [address] [place] [address] | [facility] | | [ rep [address]] [ rep [facility] | | [facility]] Signed | - IMAGING | | | | | Patient Name: PHILLIPIRAIDA F Physician: | | | FERR. : 1935 Age: 77 Sex: M Unit #: [id number] | | | Exam Date: 07/07/12 Location: [facility] | | | Report #: [id number] Page: | | | %(RAD)RES..mtdd.print.filter("pg") of %(RAD) | | | RES..mtdd.print.filter("tpg") | | | | | | Accession Number: [id number] | | | E C H O C A R D I O G R A P H Y R E P O R T | | | HEIGHT: 5'10" WEIGHT: 185# | | | MANUFACTURING INSPECTOR: [place] YINKA DR: WILLIAM MARTINEZ DR: | | | MAXOOD DIAGNOSIS: | | | | | | [...] Transcribed | | | Date/Time: 07/08/2012 11:44 Motor Vehicle Representative: | | | <<Signature on File>> | | | S | | | Yordy Adair MD07/08/12 1447 <Electronically signed by Silvia Miles | | | Mana CHAMBERLAIN> S Yordy Adair MD 07/08/12 1128 | | | Motor Vehicle Representative: [place] CK1 Hmgjcqtzgmkly86/02/12 1144 | | | Mio Hughes MD | | + + + + + + + + | Performing | Address | City/State/Zipcode | Phone Number | | Organization | | | | + + + + + | [facility] | [address] | [place] | [phone] | | [facility] | | [address] | | | - IMAGING | | | | + + + + + documented in this encounter Visit Diagnoses Not on filedocumented in this encounter
--- OUTSIDE RECORDS SUMMARY | ~2020-06-20 | XMS | Encounter Summary ---
Demographics + + + | Address | [address] | | | [place] [address] | + + + | Home Phone [...] [place] | | | | | [address] | | + + + + + | Scot Damico | ECON | [address] | | | | | [place] [address] | | + + + + + Care Team Providers + +------+ + | Care Volunteer Services Assistant Name | Role | Phone | [...] | | Pulmonary | [place], | [address] | | | | | nodules | Irina B, | [place], | | | | | Procedures | MD [address] | [place] [address] | | | | | CT Chest wo | [address] | Phone: | | | | | Contrast | [place], | [phone] | | | | | | [place] [address] | Fax: | | | | | | | [phone] | +--------+--------+ + + + + Reason [...] | | Pulmonary | [place]enstein, | [address] | | | | | nodules | Irina Sofia, | [place], | | | | | Procedures | MD [address] | [place] [address] | | | | | CT Chest wo | [address] | Phone: | | | | | Contrast | [place], | [phone] | | | | | | [place] [address] | Fax: | | | | | | | [phone] | +--------+--------+ + + + + Encounter Details +--------+ + + + + | Date | Type | Department | Care Team | Description | +--------+ + + + + | 07/29/ | Hospital | [facility] | [place], | Pulmonary nodules | | 2014 | Encounter | MED CTR CT [address] | Irina Sofia MD | | | | [address] [place], | | | | | | [place] [address] | | | | | | [phone] | | | +--------+ + + + [...] Cardiology | Rowdy Haines | | | 2020 | Visit | | MD [address] | | | | | | [address] | | | | | | [facility] [place] [address] | | | | | | [phone] | | | | | | | [...] | | | [place] [address] | | | | | | [phone] | | | | | | | [...] COMPARISON: CT chest 07/29/2014. PROTOCOL: Axial | [facility] | | images of the chest were obtained. Coronal and sagittal reformations | [facility] | | were acquired. FINDINGS: Neck base [...] [address] | [place] | [phone] | | [facility] | | [address] | | | - IMAGING | | | | + + + + + documented in this encounter Visit Diagnoses + + | Diagnosis | + + | Pulmonary nodules Other nonspecific abnormal finding of lung field | + + documented in this encounter"
--- OUTSIDE RECORDS SUMMARY | ~2020-06-20 | XMS | Encounter Summary ---
Demographics + + + | Address | [address] | | | [place] [address] | + + + | Home Phone | | + + + | Preferred Language | Unknown | + + + | Marital Status | Single | + + + | Denominational Affiliation | CAT | + + + | Race | White | + + + | Ethnic Group | Not or | + + + Author + + + | Author | [facility] | + + + | Organization | [facility] | + + + | Address | Unknown | + + + | Phone | Unavailable | + + + Support + + +---------+ + | Name | Relationship | Address | Phone | + + +---------+ + | Elizabeth Damico | ECON | Unknown | | + + +---------+ + Care Team Providers + +------+ + | Care Biofuels Plant Superintendent Name | Role | Phone | + +------+ + PCP | Unavailable | + +------+ + Encounter Details +--------+ + + + + | Date | Type | Department | Care Team | Description | +--------+ + + + + | 12/11/ | Ancillary | [facility] | | | | 2007 | Registratio | Practice [address] | | | | | n | [facility] | | | | | | [place] [address] | | | | | | [phone] | | | +--------+ + + + [...]
--- OUTSIDE RECORDS SUMMARY | ~2020-06-20 | XMS | Encounter Summary ---
Demographics + + + | Address | [address] | | | [place] [address] | + + + | Home Phone | | + + + | Preferred Language | Unknown | + + + | Marital Status | | + + + | Spiritism Affiliation | 1041 | + + + | Race | White | + + + | Ethnic Group | Not or | + + + Author + + + | Author | [facility] | | | and [place] | + + + | Organization | [facility] | | | and [...] [place] | | | | | [address] | | + + + + + | Scto Damico | ECON | [address] | | | | | [place] [address] | | + + + + + Care Team Providers + +------+ + | Care Registered Nurse Fetal Name | Role | Phone | + [...] | | | | | | [place] [address] | | | | | | [phone] | | | +--------+ + + + [...] | | | | | [place] [address] | | | | | | [phone] | | | | | | | [...] | | | [place] [address] | | | | | | [phone] | | | | | | | [...] | | Irina Norton MD 08/03/2014 9:22 [facility] | | | [facility] CC: Ralph Chatman | | + [...] signed by: Irina Norton, | | 08/03/2014 9:22[facility] Ralph Chatman | |[facility] | | | |CC: Ralph Chatman | + + documented in this encounter Visit Diagnoses + + | Diagnosis | + + | Cough - Primary | + + documented in this encounter"
--- OUTSIDE RECORDS SUMMARY | ~2020-06-20 | XMS | Encounter Summary ---
Demographics + + + | Address | [address] | | | [place] [address] | + + + | Home Phone | | + + + | Preferred Language | Unknown | + + + | Marital Status | Single | + + + | Latter-Day Affiliation | CAT | + + + [...] Providers + +------+ + | Care General Operations Agent Name | Role | Phone | + [...] as of this encounter Progress Notes Interface, Hogshead Filler In - 2005 7:20 PM PDTClinic Date: 01/27/2004 Clinic: Subjective: This is a 68-year-old male with a history of epidural abscess. Blood cultures were positive for Enterococcus fecalis. He underwent L3-4 laminectomy in November 2003 here at [facility]. He also underwent 6 weeks of intravenous [...] Sergei Martinez M.D. Maria C Vences M.D. / [id number] / [id number] / [id number] / Tdocumented in this encounter Plan of Treatment Not on filedocumented as of this encounter Visit Diagnoses Not on filedocumented in this encounter"
--- OUTSIDE RECORDS SUMMARY | ~2020-06-20 | XMS | Encounter Summary ---
Demographics + + + | Address | [address] | | | [place] [address] | + + + | Home Phone | | + + + | Preferred Language | Unknown | + + + | Marital Status | | + + + | Amish Affiliation | 1041 | + + + | Race | White | + + + | Ethnic Group | Not or | + + + Author + + + | Author | [facility] | | | and [place] | + + + | Organization | [facility] | | [...] [place] | | | | | [address] | | + + + + + | Scot Damico | ECON | [address] | | | | | [place] [address] | | + + + + + Care Team Providers + +------+ + | Care Metal Reclamation Kettle Tender Name | Role | Phone | [...] | | | | | valve | [address] | | | | | | disorders | [address] | | | | | | Procedures | [place] | | | | | | ECHO | [place] | | | | | | Transesophag | [address] | | | | | | eal ([place]ORENT[place]) | Phone: | | | | | | | [phone] | | | | | | | Fax: | | | | | | | [phone] | | +--------+--------+ + + + + Encounter Details +--------+ + + + + | Date | Type | Department | Care Team | Description | +--------+ + + + + | 03/30/ | Hospital [facility] | Theo Horan MD | Aortic valve | | 2014 | Encounter | MED CTR CARDIAC | [address] | disorders | | | | ADMIT AND RECOVERY | [place], [place] | | | | | [address] | [address] | | | | | [place], [place] | | | | | | [address] | | | | | | [phone] | | | +--------+ + + + [...] + documented in this encounter Discharge Instructions Johanna Billings RN - 03/30/2014Formatting of this note might [...] upon discharge. documented in this encounter H&P Notes Theo Horan MD - 03/29/2014 2:42 PM PDTChief Complaint: A 78-year-old seen for followup of his aortic valve disease History of Present Illness Merkel had been having worsening shortness of breath. [...] CARDIAC CATH, 07/06/13, EF 60-65% NORMAL CORONARIES (CPT-20997) S/P AORTIC VALVE REPLACEMENT, 07/08/13 -MEDTRONIC GONZALEZ II (CPT-01708) MURMUR, DIASTOLIC (ICD-785.2) S/P NUCLEAR STRESS TEST, 07/18 (CPT-07466) AORTIC VALVE REGURGITATION, MODERATE-PER 01/17 ECHO (ICD-424.1) S/P ECHO, 01/17, EF 60% (CPT-07739) HYPERTENSION (ICD-401.1) LOW BACK PAIN (ICD-724.2) DEGENERATIVE [...] as needed EXCEDRIN MIGRAINE 250-250-65 MG TABS (ALFWDCP-UGBVOEAISVMIH-SYFEQTOM) 1 tablet every 6 hrs as needed ANTI-DIARRHEAL TABS (LOPERAMIDE HCL TABS) 1 tablet daily SUDAFED 30 MG TABS (PSEUDOEPHEDRINE HCL) uses as needed * Medication list reviewed * Medication list was verified with patient or authorized area representative. Allergies and Intolerances LISINOPRIL cough * [...] estimated PA pressure. b. 01/26/13 echocardiogram in [place] stating left ventricle is 64 mm at [...] Notes Plan of Care - ON[facility] SCAN [facility] - 04/02/2014 12:00 AM PDT iscellaneous - ONBASE SCAN [facility] - 04/02/2014 12:00 AM PDTElec tronically signed by Martell Holland at 04/02/2014 1:03 PM PDTMiscellaneous - ONBASE SCAN [facility] - 04/02/2014 12:00 AM PDT do cumented [...] | | | | | [place] [address] | | | | | | [phone] | | | | | | | [...] | | | [place] [address] | | | | | | [phone] | | | | | | | [...] DAMICO Date: 03/30/2014 MRN: | | | [id number] [facility] | | | : 1935 Age: [...] then | | | administered by the clinical staff educator under my direction. Standard endoscopy | | [...] Ordering Physician: Theo HORAN | | | Prototype Machine Operator: Theo Horan MD [id number]: | | + + + + + | Procedure Note | + + | Jorje, Rad Results In - 03/30/2014 5:11 PM PDT | | Transesophageal | | Echo Report | | | | Name: IRAIDA DAMICO Date: 03/30/2014 | | Patient Location: [facility] | | : 1935 Age: 78 yrs [...] conscious sedation was then administered by the clinical staff educator under my | | direction. Standard endoscopy [...] | Ordering Physician: Theo HORAN | | Prototype Machine Operator: Theo Horan MD | | [id number]: | + + + +---------+ + + | Performing | Address | City/State/Zipcode | Phone Number | | Organization | | | | + +---------+ + + | MISCELLANEOUS LAB | | | [phone] | + +---------+ + + | MISCELANIOUS LAB | | | [phone] | + +---------+ + + documented in [...]
--- OUTSIDE RECORDS SUMMARY | ~2020-06-20 | XMS | Encounter Summary ---
Demographics + + + | Address | [address] | | | [place] [address] | + + + | Home Phone | | + + + | Preferred Language | Unknown | + + + | Marital Status | Single | + + + | Anabaptist Affiliation | CAT | + + + | Race | White | + + + | Ethnic Group | Not or | + + + Author + + + | Author | [facility] | + + + | Organization | [facility] | + + + | Address | Unknown | + + + | Phone | Unavailable | + + + Support + + +---------+ + | Name | Relationship | Address | Phone | + + +---------+ + | Elizabeth Damico | ECON | Unknown | | + + +---------+ + Care Team Providers + +------+ + | Care Transcribing Machine Operator Name | Role | Phone [...] CH16D | | | | | | [facility] | | | | | | and Healing, | | | | | | [facility], [facility] | | | | | | [place], [place] | | | | | | [address] | | | | | | [phone] | | | +--------+ + + + [...] documented in this encounter Results DERMATOPATHOLOGY([place] [place]) (01/10/2012) + + + + + + [...] | | | | labeled Iraida Damico F | | | | | | [place]:A: Specimen is | | | | | | labeled "Chest" and | | | | | | consists of an ellipse | | | | | | of garcia-white | | | | | | [id number]. The | | | | | | [...] | | | | | | from 123-6:00 and green | | | | | | from6-12:00. The | | | | | | [...] completelyexcised. | | | | | | KPW:emr01/15/12 My | | | | | | [...] Lu | | | | | | MTetePathologistElectroni | | | | | | natalie [...] | + + + + + | [facility] | [address] | [place] [address] | | | DERMATOPATHOLOGY | [address] | | | + + + + + | [facility] | [address] | [place] [address] | | | DERMATOPATHOLOGY | [address] | | | + + + + + documented in this encounter Visit Diagnoses Not on filedocumented in this encounter
--- OUTSIDE RECORDS SUMMARY | ~2020-06-20 | XMS | Encounter Summary ---
Demographics + + + | Address | [address] | | | [place] [address] | + + + | Home Phone | | + + + | Preferred Language | Unknown | + + + | Marital Status | Single | + + + | Confucianist Affiliation | CAT | + + + | Race | White | + + + | Ethnic Group | Not or | + + + Author + + + | Author | [facility] | + + + | Organization | [facility] | + + + | Address | Unknown | + + + | Phone | Unavailable | + + + Support + + +---------+ + | Name | Relationship | Address | Phone | + + +---------+ + | Elizabeth Damico | ECON | Unknown | | + + +---------+ + Care Team Providers + +------+ + | Care Mailing Section Clerk Name | Role | Phone | [...] CH16D | | | | | | [facility] | | | | | | and Healing, | | | | | | [facility], [facility] | | | | | | [place], [place] | | | | | | [address] | | | | | | [phone] | | | +--------+ + + + [...] | | | | | | cassette. [id number] | | | | | | AB. [...] | | | | | | cassette. [id number] | | | | | | BGross performed at: | | | | | | [facility], | | | | | | [address] [facility], | | | | | | [place] | | | | | | [address]. | | | | | | MICROSCOPIC [...] recommended. | | | | | | KPW:11/30/11 | | | | | | This case also | | | | | | reviewed with | | | | | | Mata [...] + + + | [facility] | [address] | [place] | | | DERMATOPATHOLOGY | [address] | | | + + + + + | [facility] | [address] | [place] [address] | | | DERMATOPATHOLOGY | [address] | | | + + + + + documented in this encounter Visit Diagnoses Not on filedocumented in this encounter"
--- OUTSIDE RECORDS SUMMARY | ~2020-06-20 | XMS | Encounter Summary ---
Demographics + + + | Address | [address] | | | [place] [address] | + + + | Home Phone [...] [place] | | | | | [address] | | + + + + + | Scot Damico | ECON | [address] | | | | | [place] [address] | | + + + + + Care Team Providers + +------+ + | Care Formwork Carpenter Name | Role | Phone | + [...] Services | - Sleep | [facility] | Errol, | SLEEP | | | Required | Disorder | (obstructive | Irina B, | DISORDERS | | | | Diagnostic | sleep | [address] | [address] | | | | | apnea) | [address] | [place] | | | | | Sleep | [place], | [address] | | | | | related | [place] [address] | [place], [place] | | | | | hypoventilat | | [address] | | | | | ion/hypoxemi | | Phone: | | | | | a in | | [phone] | | | | | conditions | | Fax: | | | | | classifiable | | [phone] | | | | | elsewhere | | | +--------+ + + + + + Reason for Visit +--------+--------+ + | Reason | Onset | Comments | | | Date | | +--------+--------+ + | Other | 08/23/ | sleep study | | | 2013 | | +--------+--------+ + Encounter Details +--------+ + + + + | Date | Type | Department | Care Team | Description | +--------+ + + + + | 08/23/ | Telephone | [facility] [place] | [place], | Other (sleep study) | | 2013 | | PULMONARY [address] | Irina Sofia MD | | | | | [place], | | | | | | [place] [address] | | | | | | [phone] | | | +--------+ + + + [...] encounter Miscellaneous Notes Telephone Encounter - Marlen Urbano RN - 08/24/2014 9:37 AM PSTOrder sent to the Slee p Study at [facility]. P STTelephone Encounter - Irina Norton MD - 08/23/2014 4:53 PM PSTOrder placed for referral for sleep study 4:5 3 PM PSTTelephone Encounter - Marlen Urbano RN - 08/23/2014 4:12 PM PSTLaverne called stating that he is interested in having a sleep study at [facility]. He is not interested in nocturnal O2 at this time. documented in this encounter Plan of Treatment +--------+ + + + + | Date | Type | Specialty | Care Team | Description | +--------+ + + + + | 06/23/ | Office | Cardiology | Rowdy Haines | | | 2019 | Visit | | MD [address] | | | | | | [address] | | | | | | [place] [address] | | | | | | [phone] | | | | | | | [...] | | | [place] [address] | | | | | | [phone] | | | | | | | [...]
--- OUTSIDE RECORDS SUMMARY | ~2020-06-20 | XMS | Encounter Summary ---
Demographics + + + | Address | [address] | | | [place] [address] | + + + | Home Phone | | + + + | Preferred Language | Unknown | + + + | Marital Status | | + + + | Buddhist Affiliation | 1041 | + + + | Race | White | + + + | Ethnic Group | Not or | + + + Author + + + | Author | [facility] | | | and [place] | + + + | Organization | [facility] | | [...] [place] | | | | | [address] | | + + + + + | Scot Damico | ECON | [address] | | | | | [place] [address] | | + + + + + Care Team Providers + +------+ + | Care Marketing Services Specialist Name | Role | Phone | [...] | | | | PACE/REC,W/O | | [address] Phone: | | | | | INDUCT | | [phone] | +--------+--------+ + + + + Encounter Details +--------+---------+ + + + | Date | Type | Department | Care Team | Description | +--------+---------+ + + + | 01/18/ | Surgery | [facility] | Jacques Fernandez, | PLACEMENT - | | 2015 | | [facility] | MD [address] | PACEMAKER LEAD DUAL | | | | ELECTROPHYSIOLOGY | [facility] | PATIENT WILL BE IN | | | | [address] | [place] [address] | HOUSE | | | | [place] | [phone] | | | | | [address] | | | | | | [phone] | | | +--------+---------+ + + + [...] + + + | Blood Pressure | 135/66 | 01/19/2016 1:20 PM | | | | | PDT | | + + + + + | Pulse | 63 | 01/19/2016 1:20 PM | | | | | PDT | | + + + + + | Temperature | 37 C (98.6 F) | 01/19/2016 7:37 AM | | | | | PDT | | + + + + + | Respiratory Rate | 16 | 01/19/2016 1:20 PM | | | | | PDT | | + + + + + | Oxygen Saturation | 94% | 01/19/2016 1:20 PM | | | | | [...] - 01/20/2016 9:20 AM PDT DISCHARGE SUMMARY [facility] PATIENT NAME/: Iraida Damico, (1935) DATE [...] Medtronic pacemaker, model number A2DR01, serial number [id number]. The device looks great at discharge. He [...] syncope. POSTOPERATIVE DIAGNOSIS: Electrophysiology study for syncope. MANAGER PACKAGING: Jacques Fernandez MD PROCEDURE: The patient presents [...] AV block that is no t reversible. MANAGER PACKAGING: Jacques Fernandez MD. PROCEDURE: The patient presents with symptomatic bradyarrhythmias from intermittent hig h-degree AV block.Medtronic pacemaker, model number A2DR01, serial number [id number]. Device is seen to sense and pace [...] Congestion. aka: SUDAFED Respiratory Therapy Supplies [facility] Res Med S9 auto CPAP 9 cm [...] minutes Thank you for allowing [facility] to be involved in the care of [...] Black or tarry stools Any unusual bleeding 2330-5320 [facility], [address] [place] [address], [place] [address]. All rights reserve d. This information is [...] mild LVH. He is followed by a financial analysis manager. He presents following several presyncopal and with [...] a day. This patient was seen at [facility] - [address], [place], [place] ; Contact . Active Problems FAINT (ICD-780.2) (SJF98-J28) VALVE REPLACEMENT (ICD-V43.3) (SNU82-E98.2) RHEUMATIC AORTIC VALVE DISEASE (ICD-395.9) (KIN92-M07.9) MURMUR, DIASTOLIC (ICD-785.2) (SPQ60-U11.1) AORTIC VALVE REGURGITATION (ICD-424.1) (ZJX71-H19.1) HTN (ICD-401.9) (VTK53-H43) * Problem list reviewed Current Meds Prior [...] as needed EXCEDRIN MIGRAINE 250-250-65 MG TABS (KTZVBPY-MOQSNGFCOFOGD-UVPYOALL) 1 tablet by mouth every 6 hours as needed ANTI-DIARRHEAL TABS (LOPERAMIDE HCL TABS) 1 tablet by mouth daily SUDAFED 30 MG TABS (PSEUDOEPHEDRINE HCL) 1 tablet by mouth daily as needed * Medication list reviewed * Medication list was verified with patient or authorized technical sales representatives. * All medications have been entered as described by [facility] Allergies and Intolerances LISINOPRIL cough * [...] Cardiovascular Palp/Percussion: PMI in 5th ICS at [facility]; no lifts, thrills, palp S3 or S4. [...] estimated PA pressure. b. 01/26/13 echocardiogram in [place] stating left ventricle is 64 mm at [...] low back pain. Impression Problem Assessments FAINT (UIE48-O16) - deteriorated RHEUMATIC AORTIC VALVE DISEASE (JIX45-N87.9) - unchanged HTN (QAD88-S00) - unchanged 1. Syncope and presyncope are [...] PATIENT NAME: Iraida Damico : 1935 DOSES: 72551 mGy/cmDAP 434.9 mGy Air Kerma Yes Notified physician of fluoroscopy time per policy. 12:06 01/18/16 Katerine Bazan documented in this encounter Miscellaneous Notes Plan of Care - Jamarcus Cristobal Chaplain - 01/20/2016 2:34 PM PDTProblem: Spiritual Distr ess, Risk/Actual (Adult,Obstetrics,Pediatric) Goal: Spiritual Well-being Patient will demonstrate the desired outcomes by discharge/transition of care. Critical Info: A follow-up pastoral visit and means by which to reintroduce game attendant and the availability of emotional and spiritual [...] feelings, confli cts or sentiments around yessy, advent or spirituality. Nor were there p articular [...] Pt and planning to stay at the [facility] until Saturday and then they will dri ve home. RX sent to our out pt pharmacy to be filled. AVS complete and pt and educate d on meds, follow up apts, ADL restrictions, and when to seek medical assistance. Questions answered at this time. All belongings bagged up and sent with pt. Electronically signed by: Rebeca Cronin RN 01/20/2016 11:28 lan of [facility] - Lisa Ma RN - 01/20/2016 [...] Note Room # 652/652-01 Name: Iraida Damico [id number] Code Status: Unknown Isolation: None Dx/Tx: POD [...] Note Room # 652/652-01 Name: Iraida Damico [id number] Code Status: Unknown Isolation: None Dx/Tx: Bradycardia [...] Conduction Defects: first degree AV block (01/19/16 153) Active Gtts: Abnormal Labs/ Treatment: GI: Had [...] Note Room # 652/652-01 Name: Iraida Damico [id number] Code Status: Unknown Isolation: None Dx/Tx: syncope/pre-syncopal [...] for assist up. Hx of orthostatic hypote valerie [facility] 2012. Neuro: A/o but ATQASUK Resp: WNL LDAs Lt arm PIV Cardiac: Sinus Rhythm: normal sinus rhythm (01/19/16 1225) Ventricular Rhythm: (paced) (01/18/16 1136) Active Gtts: Abnormal Labs/ Treatment: GI: Active Orders Diet Diet NPO; strict NPO; Effective Now Last Bowel Movement: 01/18/16 (01/19/16 0000) : Skin: (Incisions/ Wounds/ Edema) Pain: Activity: Therapy involved?: p Note - Do asuncion Fernandez MD - 01/19/2016 12:59 PM PDT [facility]'[address] [address] OPERATIVE REPORT JACQUES FERNANDEZ MD Patient: IRAIDA DAMICO Admitting: JACQUES FERNANDEZ MR #: [id number] LOC: PT TYPE: Adm Date: 01/18/2016 : 1935 DATE: 01/19/2016. POSTOPERATIVE DIAGNOSIS: As below PROCEDURE: DDD pacemaker placement for intermittent high-degree AV block that is not reve rsible. MANAGER PACKAGING: Jacques Fernandez MD. PROCEDURE: The patient presents [...] appendage lead. The RV lead is a eegoestronic mod el number 5079-58, serial number [id number], screwed into the mid septum, sutured to the pe ctoralis fascia using 0 silk times 2. The R-wave is 8.6 millivolts. The pacing threshold i s 0.5 milliseconds at 1.0 volts at 1.1 MA with an impedance of 730 ohms. The atrial lead is a eegoestronic model number 5076-52, serial number [id number], screwed into the right atria l appendage [...] Medtronic pacemaker, model number A2DR01, serial number [id number]. Devidoc e is seen to sense and pace both chambers. The wound is irrigated with Ancef and closed us ing 2-0 Vicryl in a running layer, followed by a second 2-0 Vicryl layer and a 4-0 subcuti cular layer. The patient left the laboratory to obtain a chest x-ray. JACQUES FERNANDEZ MD Dictated by JACQUES FERNANDEZ MD 01/19/2016 12:59:15 Transcribed on 01/19/2016 14:03:18 by [facility] job# [id number] Confirmation #: [id number] cc: EILEEN CHATMAN MD TPlan of Frank [...] Note Room # 652/652-01 Name: Iraida Damico [id number] Code Status: Unknown Isolation: None Dx/Tx: Syncopal/Pre-syncopal [...] Nini Cheek RN 01/19/2016 5:35 lan of [place] - Celestina Irizarry RN - 01/18/2016 10:52 PM PDTFormatting of this note might be different f rom the original. Problem: Patient Care Overview (Adult) Goal: Care Team Goals & Evaluation PROBLEM-RELATED GOALS: STRATEGY TO ACHIEVE GOALS: RESTRAINT-RELATED GOALS: STRATEGIES TO ACHIEVE RESTRAINT GOALS: Outcome: Unchanged Goal Evaluation: 6N / 6S Shift Summary Note Room # 652/652-01 Name: Iraida Damico [id number] Code Status: Unknown Isolation: None Dx/Tx: Presyncopal episodes, bradycardia Surgery/ Procedure: NPO at [place] for pacer tomorrow Filed Vitals: 01/18/16 1645 [...] MD - 01/18/2016 12: 30 PM PDT [facility] [address] [place] [address] OPERATIVE REPORT JACQUES FERNANDEZ MD Patient: IRAIDA DAMICO Admitting: JACQUES FERNANDEZ MR #: [id number] LOC: PT TYPE: Adm Date: 01/18/2016 : 1935 DATE: 01/18/2016 PROCEDURE: EP study. PREOPERATIVE DIAGNOSIS: Electrophysiology study for syncope. POSTOPERATIVE DIAGNOSIS: Electrophysiology study for syncope. MANAGER PACKAGING: Jacques Fernandez MD PROCEDURE: The patient presents [...] Transcribed on 01/18/2016 23:42:21 by sania job# [id number] Confirmation #: [id number] cc: EILEEN CHATMAN MD Tdocumented in this [...] ROBERTS | | | | | | [place] [address] | | | | | | [phone] | | | | | | | [...] D | | | | | | [place] [address] | | | | | | [phone] | | | | | | | [...] | 12:06 PM | | | | ([id number]) | | PDT | | | + [...] | Procedure Note | + + | Jorje Niles Results In - 01/19/2016 2:19 PM PDT [...] | [facility] | | | | at [facility] | | [facility] | | | [facility], | | HEART | | | | [address] [place] [address] | | MEDICAL | | | | [address] | | CENTER | | | | | | LABORATORY | | + + + + + + + + | Specimen | + + | | + + + + + + + | Performing | Address | City/State/Zipcode | Phone Number | | Organization | | | | + + + + + | [facility] | [address] | [place] [address] | | | [facility] [...] [facility] | [address] | [place] [address] | | | [facility] | | | | | [...] + + | Glucose | 103 (H)Comment: Marshallese | 65 - 99 mg/dL | [facility] [...] at | | | | | | [place] | | | | | | [facility], [address] | | | | | | [place] [address] | | | | + + + + + + + + | Specimen | + + | Blood specimen | | (specimen) | + + + + + + + | Performing | Address | City/State/Zipcode | Phone Number | | Organization | | | | + + + + + | [facility] | [address] | [place] [address] | | | [facility] [...] 8:45 | | | | | on 01/18/16 at 1215 | | AM PDT | [...] 10:05 | | | | | Intravenous, RECREATION FACILITIES SUPERVISOR, Starting | | AM PDT | | | | | 01/18/16 at 0920, For 1 dose, | | | | | | | Pre-op | | | | | | + +---------+ +---+ +---+ +---+---+ | | | +---+---+ documented in this encounter
--- OUTSIDE RECORDS SUMMARY | ~2020-06-20 | XMS | Encounter Summary ---
Demographics + + + | Address | [address] | | | [place] [address] | + + + | Home Phone [...] Team Providers + +------+ + | Care Segmental Wall Installer Name | Role | Phone | [...] as of this encounter Progress Notes Interface, Service Shop Foreman In - 2005 6:08 PM PDT [place] [address] [place] [address] or November 29, 2003 Ralph Chatman M.D. [address] [place] [address] [id number] RE: PRABHAKAR DAMICO MR #: [id number] Dear Dr. Chatman: It was our pleasure to evaluate Mr. Damico who is your patient. The Infectious Disease Team was consulted regarding Mr. Damico's epidural abscess. Mr. Damico developed fevers and back pain around November 20, 2003. He was evaluated and admitted to [facility] on November 22, 2003, where an MRI showed an epidural abscess in the L3-L4 region. He was transferred to [facility] on November 24, 2003, and underwent L4-L5 laminectomy as well as foraminotomy on November 25, 2002. Of note, his blood cultures from [facility] grew for the 4 bottles for Enterococcus faecalis. His blood cultures at [facility] are all negative today. Mr. Damico most [...] should end on December 11, 2003. Mr. Esparzas gentamycin peak levels should be from 3 to 4, which they have been while in the hospital. We recommend an additional peak level 1 week from today, which would be December 06, 2003. We would also recommend monitoring Mr. Esparzas renal function while he is on IV [...] questions. We can be reached to the [facility] ripper operator: [phone]. Sincerely, MD Nabil Lundy MD JA / [id number] / [id number] / [id number] / Tdocumented in this encounter Plan of Treatment Not on filedocumented as of this encounter Visit Diagnoses Not on filedocumented in this encounter"
--- OUTSIDE RECORDS SUMMARY | ~2020-06-20 | XMS | Encounter Summary ---
Demographics + + + | Address | [address] | | | [place] [address] | + + + | Home Phone [...] [place] | | | | | [address] | | + + + + + | Scot Damico | ECON | [address] | | | | | [place] [address] | | + + + + + Care Team Providers + +------+ + | Care Package Line Relief Operator Name | Role | Phone | [...] | | | | | | [place] [address] | | | | | | [phone] | | | +--------+ + + + [...] + documented as of this encounter Progress Marlen Layton RN - 03/07/2015 11:21 AM GUALBERTOCalaure Khoury and relayed CPAP download res ullila. Hayden per patient. Irina Haynes MD - 03/01/2015 [...] Objective CPAP Data: Dates: 01/22/15-02/21/15 Machine type: [employer] [facility] [employer] [facility]: [facility] [place] CPAP Pressure: 9 cmH2O Maximum Pressure: 9 cmH2O AHI: 3.2 events/hour Total number of Days: 31 Number of days used: 31 Median daily usage: 5 hours 31 minutes Percent of days used for more than 4 hours: 74 % Median leak: 3.4 L/min Assessment 1. PANCHITO on CPAP A. Compliance okay, he is getting insufficient sleep B. Control good C. Leak llow D. Overall looks good Plan 1.Continue CPAP at [...] [address] | | | | | | [place] [address] | | | | | | [phone] | | | | | | | [...] | | | [place] [address] | | | | | | [phone] | | | | | | | | +--------+ + + + + documented as of this encounter Visit Diagnoses Not on filedocumented in this encounter"
--- OUTSIDE RECORDS SUMMARY | ~2020-06-20 | XMS | Encounter Summary ---
Demographics + + + | Address | [address] | | | [place] [address] | + + + | Home Phone [...] + + + | Author | [facility] | + + + | Organization | [facility] | + + + | Address | Unknown | + + + | Phone | Unavailable | + + + Support + + +---------+ + | Name | Relationship | Address | Phone | + + +---------+ + | Elizabeth Damico | ECON | Unknown | | + + +---------+ + Care Team Providers + +------+ + | Care Armature Inspector Name | Role | Phone | [...] CH16D | | | | | | [place] [facility] | | | | | | and Healing, | | | | | | [facility], [facility] | | | | | | [place], [place] | | | | | | [address] | | | | | | [phone] | | | +--------+ + + + [...] this encounter Miscellaneous Notes Scan - Shawn [facility] - 12/24/2012 8:18 PM PDTElectronically signed by Faculty Other at 8:18 PM PDTScan - Shawn [facility] - 12/24/2012 8:18 PM PDT documented in this encounter Plan [...] documented in this encounter Results DERMATOPATHOLOGY([facility]) (12/08/2012) + + + + + + [...] Damico | | | | | | [place]:A: Specimen is | | | | | | labeled "scalp" and | | | | | | consists of an irregular | | | | | | shave oftan-white skin, | | | | | | [id number]. The surgical | | | | | [...] thesesections. | | | | | | KPW:mm3/ My | | | | | | [...] Lu | | | | | | M.AngelPathologistElectroni [...] [facility] | [address] | [place] [address] | | | DERMATOPATHOLOGY | [address] | | | + + + + + | [facility] | [address] | [place] [address] | | | DERMATOPATHOLOGY | [address] | | | + + + + + documented in this encounter Visit Diagnoses Not on filedocumented in this encounter
--- OUTSIDE RECORDS SUMMARY | ~2020-06-20 | XMS | Encounter Summary ---
Demographics + + + | Address | [address] | | | [place] [address] | + + + | Home Phone [...] [place] | | | | | [address] | | + + + + + | Scot Damico | ECON | [address] | | | | | [place] [address] | | + + + + + Care Team Providers + +------+ + | Care Television Tube Inspector Name | Role | Phone | [...] MD | Dx) | | | | [place], | | | | | | [place] [address] | | | | | | [phone] | | | +--------+ + + + [...] | | | | | [place] [address] | | | | | | [phone] | | | | | | | [...] | | | [place] [address] | | | | | | [phone] | | | | | | | [...]
--- OUTSIDE RECORDS SUMMARY | ~2020-06-20 | XMS | Encounter Summary ---
Demographics + + + | Address | [address] | | | [place] [address] | + + + | Home Phone [...] [place] | | | | | [address] | | + + + + + | Scot Damico | ECON | [address] | | | | | [place] [address] | | + + + + + Care Team Providers + +------+ + | Care Content Developer Name | Role | Phone | [...] | sleep apnea); | | | | [place], | | Essential | | | | [place] [address] | | hypertension; COPD | | | | [phone] | | (chronic obstructive | | | [...] Irina Norton MD - 01/06/2015 2:58 PM PDTI would recommend s tarting on an CPAP machine. I can order this and you can pick this up at [facility]. I would call the [employer] to make an appointment to pick it up so they can show you how to use it. They can also fit you to a mask. I will then see you back in about 2 weeks w ith a download from the machine. To get the download, you will take the machine or the chip from the back of the machine in to the [employer] and they can download information from the [...] coronaries Transesophageal echocardiogram 03/30/2014 Laterality: N/A; Surgeon: Thoe Garza MD; Location: [facility] Social History: History Social History Marital Status: [...] Topics Concern None Social History Narrative Lives: [place] With: his Grew up: [place] Has previously lived in: [place], [place], born in [place] Exposure to toxic chemicals: possibly as a [...] made to ensure accuracy; however, inadvertent computerized tooling engineer errors may be pre sent. documented in [...] [address] | | | | | | [place] [address] | | | | | | [phone] | | | | | | | [...] | | | | | | [place] [address] | | | | | | [phone] | | | | | | | [...]
--- OUTSIDE RECORDS SUMMARY | ~2020-06-20 | XMS | Encounter Summary ---
Demographics + + + | Address | [address] | | | [place] [address] | + + + | Home Phone [...] [place] | | | | | [address] | | + + + + + | Scot Damico | ECON | [address] | | | | | [place] [address] | | + + + + + Care Team Providers + +------+ + | Care Geospatial Information Scientist Name | Role | Phone | + +------+ + | Ralph Chatman MD | PCP | | + +------+ + Reason for Visit + +--------+ + | Reason | Onset | Comments | | | Date | | + +--------+ + | Appointment | 10/15/ | | | | 2014 | | + +--------+ + Encounter Details +--------+ + + + + | Date | Type | Department | Care Team | Description | +--------+ + + + + | 10/15/ | Telephone | [facility] | [place], | Appointment | | 2014 | | PULMONARY [address] | Irina Sofia MD | | | | | [place], | | | | | | [place] [address] | | | | | | [phone] | | | +--------+ + + + [...] this encounter Miscellaneous Notes Telephone Encounter - Radha Page - 10/15/2014 2:01 PM PSTPatient will call to bandar wayne his follow up with Dr. Norton once [facility] documented in this encounter Plan of Treatment +--------+ + + + + | Date | Type | Specialty | Care Team | Description | +--------+ + + + + | 06/23/ | Office | Cardiology | Rowdy Haines | | 2019 | Visit | | MD [address] | | | | | | [address] | | | | | | [place] [address] | | | | | | [phone] | | | | | | | [...] | | | [place] [address] | | | | | | [phone] | | | | | | | | +--------+ + + + + documented as of this encounter Visit Diagnoses Not on filedocumented in this encounter"
[~2020-06-20 00:58] MED LIST changes: +KEFLEX500 MG PO
[2020-06-20] MEDS ORDERED: TAMSULOSIN HCL0.4 MG PO (08:20)
[2020-06-20] MEDS ORDERED: FINASTERIDE5 MG PO (08:21)
[2020-06-20] MEDS ORDERED: NORVASC5 MG PO (15:13)
--- NOTE | 2020-06-21 14:01 | EKG ---
[facility] [address] [facility] [place] [address] Signed AV dual-paced rhythm with prolonged AV conduction with occasional atrial-paced complexes Abnormal ECG No previous ECGs available Confirmed by VARINDER CLAROS DO ([id number]) on 06/21/2020 2:01:15 PM Electronically Signed By: VARINDER CLAROS DO 06/21/20 1401 PATIENT NAME: CELENA FISHER NABOR Electrocardiogram DATE OF : 35 PHYSICIAN: VARINDER CLAROS DO REPORT #: [id number] REPORT IS CONFIDENTIAL AND NOT TO BE RELEASED WITHOUT AUTHORIZATION
--- NOTE | 2020-06-23 13:34 | EKG ---
[facility] [address] [facility] [place] [address] Signed AV dual-paced rhythm with prolonged AV conduction with occasional ventricular-paced complexes and with occasional premature ventricular complexes Abnormal ECG When compared with ECG of 20-JUN-2020 01:20, premature ventricular complexes are now present Confirmed by VARINDER CLAROS DO ([id number]) on 06/23/2020 1:34:21 PM Electronically Signed By: VARINDER CLAROS DO 06/23/20 1334 PATIENT NAME: CELENA FISHER NABOR Electrocardiogram DATE OF : 35 PHYSICIAN: VARINDER CLAROS DO REPORT #: [id number] REPORT IS CONFIDENTIAL AND NOT TO BE RELEASED WITHOUT AUTHORIZATION
[2020-06-29] MEDS ORDERED: NORVASC5 MG PT (12:40)
[2020-06-29] MEDS ORDERED: FINASTERIDE5 MG PT (12:41)
[2020-06-29] MEDS ORDERED: RAPAFLO8 MG PO (12:46)
== END 2020-06-30 09:06 | DRG 208 ==
LOC: ED 00:58 → CCU 03:02 → MS 06-22 16:09 → CCU 06-23 03:15 → MS 06-25 10:00
PROVIDERS: ADMIT Student in an Organized Health Care Education/Training Program; ATTEND Student in an Organized Health Care Education/Training Program
PROC: 5A1935Z Respiratory Ventilation, Less than 24 Consecutive Hours (ICD-10-PCS; principal; 2020-06-20)
PROC: 0DH97UZ Insertion of Feeding Device into Duodenum, Via Natural or Artificial Opening (ICD-10-PCS; 2020-06-23)
DX: J96.01 Acute respiratory failure with hypoxia (principal); J69.0 Pneumonitis due to inhalation of food and vomit; J96.02 Acute respiratory failure with hypercapnia; Z20.828 Contact with and (suspected) exposure to other viral communicable diseases; R13.12 Dysphagia, oropharyngeal phase; I10 Essential (primary) hypertension; N40.0 Benign prostatic hyperplasia without lower urinary tract symptoms; E83.51 Hypocalcemia; Z88.8 Allergy status to other drugs, medicaments and biological substances; Z95.2 Presence of prosthetic heart valve; Z95.0 Presence of cardiac pacemaker; Z79.899 Other long term (current) drug therapy
CPT/HCPCS: 31500; 31720; 36415; 36600; 51702; 70450; 71045; 74018; 74230; 80048; 80053; 81001; 82803; 83605; 83735; 83880; 84484; 85025; 85379; 87040; 87070; 87205; 92526; 92610; 92611; 93005; 93010; 94003; 94640; 94660; 94668; 94760; 94762; 97110; 97116; 97140; 97162; 97165; 97530; 97535; 99291; C9113; C9803; J0456; J0692; J0696; J1650; J2543; J2704; J2765; J3010; J3480; J7030; J7060; J7121